=== PATIENT | male | born 2005 | race Caucasian/White ===

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

== ENCOUNTER 2023-03-10 22:59 | Emergency (ER) | payer OTHER ==
[2023-03-10] MEDS ORDERED: METHYLPREDNISOLONE 125 MG INJ ONE (23:15)
[2023-03-10] MEDS ORDERED: FAMOTIDINE 20 MG/2 ML VIAL IV ONE (23:15)
[2023-03-10] MEDS ORDERED: NA CHLORIDE 0.9% 1,000 ML ONE (23:15)
--- OUTSIDE RECORDS SUMMARY | 2023-03-10 23:27 | XMS REPORT | Continuity of Care Document ---
:2005 Author Organization [facility] t Address [address] [facility] [address] [place] [address] Care Team Providers Name Role Phone Rodriguez RAFIQ, Miladys Primary Care Physician [phone] EDDO, GENERIC FOR EDM Attending Clinician Unavailable ESTRADA SHAH Attending Clinician Unavailable HELDER HENRY Attending Clinician Unavailable Helder Henry PA-C Attending Clinician Unknown, Attending Attending Clinician Unavailable Lab, Ang - Db Attending Clinician Unavailable Dorothea Collier MD Attending Clinician DOROTHEA COLLIER Attending Clinician Unavailable Doctor Unassigned, [place] Attending Clinician Unavailable MALICK MONTEIRO Attending Clinician Unavailable Malick Mendez Attending Clinician SAMI GALLO Attending Clinician Unavailable Shaun Driver DO Attending Clinician Sami Gallo MD Attending Clinician RAGHU HAM Attending Clinician Unavailable Raghu Ham APN Attending Clinician IBIKUNLE, FOLUSHO F Attending Clinician Unavailable Ibikunle SAFETY INVESTIGATOR, Folusho F Attending Clinician VONDA HAYNES Attending Clinician Unavailable Vonda Haynes NP Attending Clinician Mark SANDERS, Suzie Augustin Attending Clinician Unavailable STEVEN MARIEE R Attending Clinician Unavailable Steven Staples R Attending Clinician CARLOS OVIEDO Attending Clinician Unavailab AMANDA Lockwood Attending Clinician Unavailable Nurse, [facility] Mp1 Assessment Attending Clinician Unavailable UNKNOWN, ATTENDING Attending Clinician Unavailable Jamaal CONROY, Ming Newby Attending Clinician Sergio LOTT, Yana Attending Clinician YANA HILL Attending Clinician Unavailable Shannon Villanueva PA-C, Vincent M Attending Clinician [phone] Carlos Oviedo MD Attending Clinician [phone] Elissa Navarrete MD Attending Clinician ELISSA NAVARRETE Attending Clinician Unavailable Jay Corona DO Attending Clinician Akhil Carpio Attending Clinician She Harden Attending Clinician CLINT CHRISTIANSON Attending Clinician Unavailable Esrtada Forte Attending Clinician Maryjane Bartholomew Attending Clinician Only, Adc Kwame Bill Attending Clinician Unavailable Moody Gr DO Attending Clinician Provider, [facility] Attending Clinician Unavailable Divina Vasquez Attending Clinician Pob, Adc Lab Main Attending Clinician Unavailable SHE BRAVO Attending Clinician Unavailable Pob1, Acute Care [facility] Attending Clinician Unavailable Bindu ELENA, Ladi Myers Attending Clinician [phone] DOMO CHRISTIANSON Attending Clinician Unavailable Domo German Attending Clinician Phuc SAFETY INVESTIGATOR, Tracee Nunez Attending Clinician Kameron SAFETY INVESTIGATOR, Michelle Attending Clinician Hudson Wray MD Attending Clinician Cruz Crow Admitting Clinician Unavailable RAGHU HAM Admitting Clinician Unavailable DOMO CHRISTIANSON Admitting Clinician Unavailable ELISSA NAVARRETE Admitting Clinician Unavailable Payers Payer Name Policy Type Policy Number Effective Date Expiration Date S sherif [facility] [id number] CHOICE - CHIP/STAR (MEDICAID) [facility] [id number] 2017 00:00:00 Problems Condition Condition Condition Status Onset Resolution Last Treating Co mments Source Name Details Category Date Date Treatment Clinician Date Chronic Chronic Disease Active Overview: Univ ers rhinitis rhinitis 03-18 Formattin ity of 00:00: g of this note Medical might be Branch different from the original. Update 03/15/2021 - compliance nurse recommend ed Astelin nasal spray PRN Mild [...] ity o f 00:00: g of this [place] note Medical might be Branch different from the original. Update 03/15/2021 allergy specialis t refilled EPI pen and recommend s testing to determine his benefits of desensiti zing treatment . 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 Costochond Costochond Disease Active Last U meagan vidal, 5 Assessmen ity of acute acute 00:00: t & Plan: [address] Medical g of this Branch note might be different from the original. I suspect this is secondary to his persisten t cough. Address this issue today and will monitor. Recommend ed as needed use of ibuprofen or acetamino phen for relief of this chest pain. Other Other Disease Active Last [facility] atopic atopic 11-28 Assessmen ity of dermatitis dermatitis 00:00: t & Plan: [address] Medical g of this Branch note [...] cleansing the hands. Reduce use of hand german tutor when practical . Notify if rash does not improve with the use of topical corticost eroid over the next week. Anxiety Anxiety Disease Active Univers 9-10 ity of 00:00: [place] [id number] Medical Branch PTSD PTSD Disease Active Univers (post-trau (post-trau 9-10 it y of noemi franklin 00:00: [place] stress stress 00 Medical disorder) disorder) Bran ch Recurrent Recurrent Disease Active Overview: Univers chest pain chest pain 4-22 Patient i ty of 00:00: saw Dr. Francisco Guerra with Medical [facility] - pulmonolo gy on 02/25/2020 - [...] laterality Aggressive Aggressive Disease Active 2019-0 U willisers behavior behavior 4-22 ity of 00:00: Medical Branch Opposition Opposition Disease Active 2019-0 U nivers al al 4 ity of behavior behavior 00:00: Medical Branch Opposition Opposition Disease Active 2019-0 U nivers al al 02-17 ity of behavior behavior 00:00: Medical Branch Mood Mood Disease Active Univers disturbanc disturbanc 01-04 it y of e e 00:00: [place] [facility] Academic/e Academic/e Disease Active U jacinto ducational ducational 01-04 it y of problem problem 00:00: Medical Branch Attention Attention Disease Active Overview: Univers deficit deficit 1-02 Formattin ity o f hyperactiv hyperactiv 00:00: g of this [place] ity ity 00 note Medical disorder disorder might be Bran ch (ADHD) (ADHD) different from the original. ICD10 Diagnosis Term Supervisor Contact [employer]ens [employer] Asthma Asthma Disease Active Overview: Univer s 2-16 Intermitt ity of 00:00: [id number] Diagnosis Medical Term Branch Supervisor Contact [employer] Allergies, Adverse Reactions, Alerts Allergy Allergy Status Severity Reaction(s) Onset Inactive Treating Comm ents Source Name Type Date Date Clinician Codeine Propensi Active ty to 09 adverse 00:00: reaction 00 to drug codeine DA Active [facility] 2- Clear 00:00: [place] 00 [facility] codeine DA Active MO "SEEING [facility] THINGS" 12-25 Clear 00:00: [place] 00 [facility] BEE DRUG Active Swelling 2013-10 Univers STING / INGREDI 2-15 ity of VENOM 00:00: [place] [facility] Bee Propensi Active Swelling 2013-10 [...] Date Stop Date Quantity Comments Source History of Cigarette Smoker Universi ty of tobacco use [place] [facility] History [facility] o f Alcohol Frequency [facility] edical Branch History [facility] o f Alcohol Std [place] Medical Drinks Branch History [facility] o f Alcohol Binge [place] Medic al Branch Alcohol intake 2023-02-20 2023-02-20 Ex-drinker University of 00:00:00 00:00:00 (finding) [facility] Exposure to 2023-02-09 2023-02-19 Yes University of SARS-CoV-2 00:00:00 09:23:00 [facility] (event) Branch Tobacco use and 2023-01-23 2023-01-23 Smokeless tobacco Un iversity of exposure 00:00:00 00:00:00 non-user [facility] Tobacco Comment 2023-01-23 2023-01-23 Vaping, beginning Un iversity of 00:00:00 00:00:00 ~2018 [facility] Alcohol Comment 2019-07-09 2019-07-09 "I tried alcohol Uni versity of 00:00:00 00:00:00 once" [facility] Sex Assigned At [birth year] Universit y of 00:00:00 00:00:00 [facility] Smoking Status Start Date Stop Date Source Heavy tobacco smoker 2023-01-23 00:00:00 Univers ity [facility] Light tobacco smoker 2020-03-01 00:00:00 Univers ity [facility] Never smoker [facility] Medications Ordered Filled Start Stop Current Ordering Indication Dosage Frequency Signature Comments Components Source Medication Medication Date Date Medication? Clinician (SIG) Name Name predniSONE 2022- No [id number] 40mg Take 2 Univers 20 mg 1-20 - tablets by ity of tablet 00:00: 05:59 mouth in [place] 00 :00 the Medical morning Branch for 5 days. Dose 2021- No Unknown 2-16 00:00: 00 Dose 2021-1 No Unknown 2-16 00:00: 00 Dose 2021- No Unknown 2-16 00:00: 00 INHALE 2 2021-10 No PUFFS BY 2-16 MOUTH EVERY 00:00: 4 HOURS 00 Dose 2021-1 No Unknown 2-16 00:00: 00 Dose 2021-1 No Unknown 2-16 00:00: 00 Dose 2021-1 No Unknown 2-16 00:00: 00 Dose 2021-0 No Unknown 7-14 00:00: 00 Dose 2021-0 No Unknown 7-14 00:00: 00 Ativan 1 mg No 1mg tablet 04-11 00:00: 00 Dose 2021-0 No Unknown 6-14 00:00: 00 Dose 2021-0 No Unknown 6-14 00:00: 00 Dose 2021-0 No Unknown 6-14 00:00: 00 hydrOXYzine 2021- No 25mg 25 mg, Uni vers (ATARAX) 04-03 Oral, ity of tablet 25 22:00: 21:02 ONCE, 1 [place] mg 00 :00 dose, On Medical 04/03/22 Branch at 1700, DRAKE iopamidol 2021- No [id number] 70mL 70 mL, Univers (ISOVUE 04-03 Intravenou ity o f 370-500 mL) 21:18: 21:19 s, ONCE, 1 [place] injection 00 :00 dose, On Medica l 70 mL [facility] 04/03/22 Branch at 1630, Routine hydrOXYzine Yes [id number] 25mg Take 1 Univers 25 mg 6-06 tablet by ity of tablet 00:00: mouth [place] 00 every 8 Medical (eight) Branch hours as needed for Anxiety. hydrOXYzine 2021-0 Yes [id number] 25mg Take 1 Univers 25 mg 6-06 tablet by ity of tablet 00:00: mouth [place] 00 every 8 Medical (eight) Branch hours as needed for Anxiety. hydrOXYzine 2021-0 Yes [id number] 25mg Take 1 Univers 25 mg 6-06 tablet by ity of tablet 00:00: mouth [place] 00 every 8 Medical (eight) Branch hours as needed for Anxiety. hydrOXYzine 2022-0 Yes [id number] 25mg Take 1 Univers 25 mg 6-06 tablet by ity of tablet 00:00: mouth [place] 00 every 8 Medical (eight) Branch hours as needed for Anxiety. hydrOXYzine 2022-0 Yes [id number] 25mg Take 1 Univers 25 mg 6-06 tablet by ity of tablet 00:00: mouth [place] 00 every 8 Medical (eight) Branch hours as needed for Anxiety. hydrOXYzine 2022-0 Yes [id number] 25mg Take 1 Univers 25 mg 6-06 tablet by ity of tablet 00:00: mouth [place] 00 every 8 Medical (eight) Branch hours as needed for Anxiety. hydrOXYzine 2022-0 Yes [id number] 25mg Take 1 Univers 25 mg 6-06 tablet by ity of tablet 00:00: mouth [place] 00 every 8 Medical (eight) Branch hours as needed for Anxiety. hydrOXYzine 2022-0 Yes [id number] 25mg Take 1 Univers 25 mg 6-06 tablet by ity of tablet 00:00: mouth [place] 00 every 8 Medical (eight) Branch hours as needed for Anxiety. hydrOXYzine 2022-0 Yes [id number] 25mg Take 1 Univers 25 mg 6-06 tablet by ity of tablet 00:00: mouth [place] 00 every 8 Medical (eight) Branch hours as needed for Anxiety. hydrOXYzine 2022-0 Yes [id number] 25mg Take 1 Univers 25 mg 6-06 tablet by ity of tablet 00:00: mouth [place] 00 every 8 Medical (eight) Branch hours as needed for Anxiety. hydrOXYzine 2022-0 Yes [id number] 25mg Take 1 Univers 25 mg 6-06 tablet by ity of tablet 00:00: mouth [place] 00 every 8 Medical (eight) Branch hours as needed for Anxiety. ibuprofen 2022-0 Yes [id number] 600mg Take 1 Univers 600 mg 5-09 tablet by ity of tablet 00:00: mouth [place] 00 every 6 Medical (six) Branch hours as needed for Pain (scale 4-6). ibuprofen 2022-0 Yes [id number] 600mg Take 1 Univers 600 mg 5-09 tablet by ity of tablet 00:00: mouth [place] 00 every 6 Medical (six) Branch hours as needed for Pain (scale 4-6). ibuprofen 2022-0 Yes [id number] 600mg Take 1 Univers 600 mg 5-09 tablet by ity of tablet 00:00: mouth [place] 00 every 6 Medical (six) Branch hours as needed for Pain (scale 4-6). ibuprofen 2022-0 Yes [id number] 600mg Take 1 Univers 600 mg 5-09 tablet by ity of tablet 00:00: mouth [place] 00 every 6 Medical (six) Branch hours as needed for Pain (scale 4-6). ibuprofen 2022-0 Yes [id number] 600mg Take 1 Univers 600 mg 5-09 tablet by ity of tablet 00:00: mouth [place] 00 every 6 Medical (six) Branch hours as needed for Pain (scale 4-6). ibuprofen 2022-0 Yes [id number] 600mg Take 1 Univers 600 mg 5-09 tablet by ity of tablet 00:00: mouth [place] 00 every 6 Medical (six) Branch hours as needed for Pain (scale 4-6). ibuprofen 2022-0 Yes [id number] 600mg Take 1 Univers 600 mg 5-09 tablet by ity of tablet 00:00: mouth [place] 00 every 6 Medical (six) Branch hours as needed for Pain (scale 4-6). ibuprofen 2022-0 Yes [id number] 600mg Take 1 Univers 600 mg 5-09 tablet by ity of tablet 00:00: mouth [place] 00 every 6 Medical (six) Branch hours as needed for Pain (scale 4-6). ibuprofen 2022-0 Yes [id number] 600mg Take 1 Univers 600 mg 5-09 tablet by ity of tablet 00:00: mouth [place] 00 every 6 Medical (six) Branch hours as needed for Pain (scale 4-6). ibuprofen 2022-0 Yes [id number] 600mg Take 1 Univers 600 mg 5-09 tablet by ity of tablet 00:00: mouth [place] 00 every 6 Medical (six) Branch hours as needed for Pain (scale 4-6). ibuprofen 2022-0 Yes [id number] 600mg Take 1 Univers 600 mg 5-09 tablet by ity of tablet 00:00: mouth [place] 00 every 6 Medical (six) Branch hours as needed for Pain (scale 4-6). ibuprofen 2022-0 Yes [id number] 600mg Take 1 Univers 600 mg 5-09 tablet by ity of tablet 00:00: mouth [place] 00 every 6 Medical (six) Branch hours as needed for Pain (scale 4-6). methocarbam 2021- No [id number] 750mg Take 1 Univers oL 750 mg 03-06 tablet by ity of tablet 00:00: 04:59 mouth 4 [place] 00 :00 (four) Medical times Branch daily for 2 days. Dose 2021-0 No Unknown 3-10 00:00: 00 Dose 2021-0 No Unknown 3-10 00:00: 00 Dose 2021-0 No Unknown 3-10 00:00: 00 Dose 2021-0 No Unknown 3-10 00:00: 00 Dose 2021-0 No Unknown 3-09 00:00: 00 Dose 2021-0 No Unknown 3-09 00:00: 00 Dose 2021-0 No Unknown 3-09 00:00: 00 Dose 2021-0 No Unknown 3-09 00:00: 00 Dose 2021-0 No Unknown 3-09 00:00: 00 Dose 2021-0 No Unknown 3-09 00:00: 00 famotidine 2021- No 20mg 20 mg, Univ ers (PEPCID AC) 11-10 Oral, ity of tablet 20 19:30: 21:07 ONCE, 1 [place] mg 00 :00 dose, On Medical [place] Branch 11/10/21 at 1330, DRAKE ondansetron 2021- No 4mg 4 mg, Univ ers (ZOFRAN-ODT 11-10 Oral, ity of ) 19:30: 21:07 ONCE, 1 [place] disintegrat 00 :00 dose, On Medi chen ing tablet [facility] Branch 4 mg 11/10/21 at 1330, Routine ondansetron Yes [id number] 4mg Take 1 Univers (ZOFRAN 1-13 tablet by ity of ODT) 4 mg 00:00: mouth [place] disintegrat 00 every 8 Medic al ing tablet (eight) Branch hours as needed for Nausea and Vomiting (N/V). ondansetron 2021-0 Yes [id number] 4mg Take 1 Univers (ZOFRAN 1-13 tablet by ity of ODT) 4 mg 00:00: mouth [place] disintegrat 00 every 8 Medic al ing tablet (eight) Branch hours as needed for Nausea and Vomiting (N/V). ondansetron 2022-0 Yes [id number] 4mg Take 1 Univers (ZOFRAN 1-13 tablet by ity of ODT) 4 mg 00:00: mouth [place] disintegrat 00 every 8 Medic al ing tablet (eight) Branch hours as needed for Nausea and Vomiting (N/V). ondansetron 2022-0 Yes [id number] 4mg Take 1 Univers (ZOFRAN 1-13 tablet by ity of ODT) 4 mg 00:00: mouth [place] disintegrat 00 every 8 Medic al ing tablet (eight) Branch hours as needed for Nausea and Vomiting (N/V). ondansetron 2022-0 Yes [id number] 4mg Take 1 Univers (ZOFRAN 1-13 tablet by ity of ODT) 4 mg 00:00: mouth [place] disintegrat 00 every 8 Medic al ing tablet (eight) Branch hours as needed for Nausea and Vomiting (N/V). ondansetron 2022-0 Yes [id number] 4mg Take 1 Univers (ZOFRAN 1-13 tablet by ity of ODT) 4 mg 00:00: mouth [place] disintegrat 00 every 8 Medic al ing tablet (eight) Branch hours as needed for Nausea and Vomiting (N/V). ondansetron 2022-0 Yes [id number] 4mg Take 1 Univers (ZOFRAN 1-13 tablet by ity of ODT) 4 mg 00:00: mouth [place] disintegrat 00 every 8 Medic al ing tablet (eight) Branch hours as needed for Nausea and Vomiting (N/V). ondansetron 2022-0 Yes [id number] 4mg Take 1 Univers (ZOFRAN 1-13 tablet by ity of ODT) 4 mg 00:00: mouth [place] disintegrat 00 every 8 Medic al ing tablet (eight) Branch hours as needed for Nausea and Vomiting (N/V). ondansetron 2022-0 Yes [id number] 4mg Take 1 Univers (ZOFRAN 1-13 tablet by ity of ODT) 4 mg 00:00: mouth [place] disintegrat 00 every 8 Medic al ing tablet (eight) Branch hours as needed for Nausea and Vomiting (N/V). ondansetron 2022-0 Yes [id number] 4mg Take 1 Univers (ZOFRAN 1-13 tablet by ity of ODT) 4 mg 00:00: mouth [place] disintegrat 00 every 8 Medic al ing tablet (eight) Branch hours as needed for Nausea and Vomiting (N/V). ondansetron Yes [id number] 4mg Take 1 Univers (ZOFRAN 1-13 tablet by ity of ODT) 4 mg 00:00: mouth [place] disintegrat 00 every 8 Medic al ing tablet (eight) Branch hours as needed for Nausea and Vomiting (N/V). ondansetron Yes [id number] 4mg Take 1 Univers (ZOFRAN 1-13 tablet by ity of ODT) 4 mg 00:00: mouth [place] disintegrat 00 every 8 Medic al ing tablet (eight) Branch hours as needed for Nausea and Vomiting (N/V). ondansetron Yes [id number] 4mg Take 1 Univers (ZOFRAN 1-13 tablet by ity of ODT) 4 mg 00:00: mouth [place] disintegrat 00 every 8 Medic al ing tablet (eight) Branch hours as needed for Nausea and Vomiting (N/V). famotidine 2021- No [id number] 20mg Take 1 Univers 20 mg 1-13 02-04 tablet by ity of tablet 00:00: 05:59 mouth at [place] 00 :00 bedtime Medical for 21 Branch days. penicillin 2020- No [id number] 1.210 U nivers g 05-25 ity of benzathine 01:30: 00:49 [place] (BICILLIN 00 :00 Medical L-A) Branch injection 1.2 Million Units penicillin 2020- No [id number] 1.210 1.2 U nivers g 05-25 Million ity of benzathine 01:30: 00:49 Units, [place] (BICILLIN 00 :00 Intramuscu Medi chen L-A) lar, ONCE, Branch injection 1 dose, 1.2 Million Tue Units 05/24/21 at 2030, DRAKE
Re ason for Anti-Infec tive: Empiric Therapy for Suspected Infection< br>Empiric Therapy Site: Urine
D uration of therapy: 7 days ondansetron Yes [id number] 4mg Take 1 Univers 4 mg 7-26 tablet by ity of disintegrat 00:00: mouth [place] ing tablet 00 every 8 Medica l (eight) Branch hours as needed for Nausea and Vomiting (N/V). chlorhexidi 2020-0 Yes [id number] Apply to Univers ne 4 % 7-26 area(s) ity of external 00:00: once daily [place] as liquid 00 as needed Medical for Wound Branch care. mupirocin 2 2020-0 Yes [id number] Apply to Univers % ointment 7-26 area(s) 3 ity of 00:00: (three) [place] 00 times Medical daily. Branch ondansetron 2020-0 Yes [id number] 4mg Take 1 Univers 4 mg 7-26 tablet by ity of disintegrat 00:00: mouth [place] ing tablet 00 every 8 Medica l (eight) Branch hours as needed for Nausea and Vomiting (N/V). chlorhexidi 2020-0 Yes [id number] Apply to Univers ne 4 % 7-26 area(s) ity of external 00:00: once daily [place] as liquid 00 as needed Medical for Wound Branch care. mupirocin 2 2020-0 Yes [id number] Apply to Univers % ointment 7-26 area(s) 3 ity of 00:00: (three) [place] 00 times Medical daily. Branch ondansetron 2020-0 Yes [id number] 4mg Take 1 Univers 4 mg 7-26 tablet by ity of disintegrat 00:00: mouth [place] ing tablet 00 every 8 Medica l (eight) Branch hours as needed for Nausea and Vomiting (N/V). chlorhexidi 2020-0 Yes [id number] Apply to Univers ne 4 % 7-26 area(s) ity of external 00:00: once daily [place] as liquid 00 as needed Medical for Wound Branch care. mupirocin 2 2020-0 Yes [id number] Apply to Univers % ointment 7-26 area(s) 3 ity of 00:00: (three) [place] 00 times Medical daily. Branch ondansetron 2020-0 Yes [id number] 4mg Take 1 Univers 4 mg 7-26 tablet by ity of disintegrat 00:00: mouth [place] ing tablet 00 every 8 Medica l (eight) Branch hours as needed for Nausea and Vomiting (N/V). chlorhexidi 1-0 Yes [id number] Apply to Univers ne 4 % 7-26 area(s) ity of external 00:00: once daily [place] as liquid 00 as needed Medical for Wound Branch care. mupirocin 2 2020-0 Yes [id number] Apply to Univers % ointment 7-26 area(s) 3 ity of 00:00: (three) [place] 00 times Medical daily. Branch ondansetron 1-0 Yes [id number] 4mg Take 1 Univers 4 mg 7-26 tablet by ity of disintegrat 00:00: mouth [place] ing tablet 00 every 8 Medica l (eight) Branch hours as needed for Nausea and Vomiting (N/V). chlorhexidi 1-0 Yes [id number] Apply to Univers ne 4 % 7-26 area(s) ity of external 00:00: once daily [place] as liquid 00 as needed Medical for Wound Branch care. mupirocin 2 2020-0 Yes [id number] Apply to Univers % ointment 7-26 area(s) 3 ity of 00:00: (three) [place] 00 times Medical daily. Branch ondansetron 2020-0 Yes [id number] 4mg Take 1 Univers 4 mg 7-26 tablet by ity of disintegrat 00:00: mouth [place] ing tablet 00 every 8 Medica l (eight) Branch hours as needed for Nausea and Vomiting (N/V). chlorhexidi 2020-0 Yes [id number] Apply to Univers ne 4 % 7-26 area(s) ity of external 00:00: once daily [place] as liquid 00 as needed Medical for Wound Branch care. mupirocin 2 2020-0 Yes [id number] Apply to Univers % ointment 7-26 area(s) 3 ity of 00:00: (three) [place] 00 times Medical daily. Branch ondansetron 1-0 Yes [id number] 4mg Take 1 Univers 4 mg 7-26 tablet by ity of disintegrat 00:00: mouth [place] ing tablet 00 every 8 Medica l (eight) Branch hours as needed for Nausea and Vomiting (N/V). chlorhexidi 1-0 Yes [id number] Apply to Univers ne 4 % 7-26 area(s) ity of external 00:00: once daily [place] as liquid 00 as needed Medical for Wound Branch care. mupirocin 2 2020-0 Yes [id number] Apply to Univers % ointment 7-26 area(s) 3 ity of 00:00: (three) [place] 00 times Medical daily. Branch ondansetron 1-0 Yes [id number] 4mg Take 1 Univers 4 mg 7-26 tablet by ity of disintegrat 00:00: mouth [place] ing tablet 00 every 8 Medica l (eight) Branch hours as needed for Nausea and Vomiting (N/V). chlorhexidi 1-0 Yes [id number] Apply to Univers ne 4 % 7-26 area(s) ity of external 00:00: once daily [place] as liquid 00 as needed Medical for Wound Branch care. mupirocin 2 2020-0 Yes [id number] Apply to Univers % ointment 7-26 area(s) 3 ity of 00:00: (three) [place] 00 times Medical daily. Branch ondansetron 1-0 Yes [id number] 4mg Take 1 Univers 4 mg 7-26 tablet by ity of disintegrat 00:00: mouth [place] ing tablet 00 every 8 Medica l (eight) Branch hours as needed for Nausea and Vomiting (N/V). chlorhexidi 2020-0 Yes [id number] Apply to Univers ne 4 % 7-26 area(s) ity of external 00:00: once daily [place] as liquid 00 as needed Medical for Wound Branch care. mupirocin 2 2020-0 Yes [id number] Apply to Univers % ointment 7-26 area(s) 3 ity of 00:00: (three) [place] 00 times Medical daily. Branch ondansetron 2020-0 Yes [id number] 4mg Take 1 Univers 4 mg 7-26 tablet by ity of disintegrat 00:00: mouth [place] ing tablet 00 every 8 Medica l (eight) Branch hours as needed for Nausea and Vomiting (N/V). chlorhexidi 1-0 Yes [id number] Apply to Univers ne 4 % 7-26 area(s) ity of external 00:00: once daily [place] as liquid 00 as needed Medical for Wound Branch care. mupirocin 2 2020-0 Yes [id number] Apply to Univers % ointment 7-26 area(s) 3 ity of 00:00: (three) [place] 00 times Medical daily. Branch ondansetron 2020-0 Yes [id number] 4mg Take 1 Univers 4 mg 7-26 tablet by ity of disintegrat 00:00: mouth [place] ing tablet 00 every 8 Medica l (eight) Branch hours as needed for Nausea and Vomiting (N/V). chlorhexidi 2020-0 Yes [id number] Apply to Univers ne 4 % 7-26 area(s) ity of external 00:00: once daily [place] as liquid 00 as needed Medical for Wound Branch care. mupirocin 2 2020-0 Yes [id number] Apply to Univers % ointment 7-26 area(s) 3 ity of 00:00: (three) [place] 00 times Medical daily. Branch ondansetron 2020-0 Yes [id number] 4mg Take 1 Univers 4 mg 7-26 tablet by ity of disintegrat 00:00: mouth [place] ing tablet 00 every 8 Medica l (eight) Branch hours as needed for Nausea and Vomiting (N/V). chlorhexidi 2020-0 Yes [id number] Apply to Univers ne 4 % 7-26 area(s) ity of external 00:00: once daily [place] as liquid 00 as needed Medical for Wound Branch care. mupirocin 2 2020-0 Yes [id number] Apply to Univers % ointment 7-26 area(s) 3 ity of 00:00: (three) [place] 00 times Medical daily. Branch ondansetron 2020-0 Yes [id number] 4mg Take 1 [facility] 4 mg 7-26 tablet by ity of disintegrat 00:00: mouth [place] ing tablet 00 every 8 Medica l (eight) Branch hours as needed for Nausea and Vomiting (N/V). chlorhexidi 2020-0 Yes [id number] Apply to [facility] ne 4 % 7-26 area(s) ity of external 00:00: once daily [place] as liquid 00 as needed Medical for Wound Branch care. mupirocin 2 2020-0 Yes [id number] Apply to [facility] % ointment 7-26 area(s) 3 ity of 00:00: (three) [place] 00 times Medical daily. Branch ondansetron 2020-0 Yes [id number] 4mg Take 1 [facility] 4 mg 7-26 tablet by ity of disintegrat 00:00: mouth [place] ing tablet 00 every 8 Medica l (eight) Branch hours as needed for Nausea and Vomiting (N/V). chlorhexidi 2020-0 Yes [id number] Apply to [facility] ne 4 % 7-26 area(s) ity of external 00:00: once daily [place] as liquid 00 as needed Medical for Wound Branch care. mupirocin 2 2020-0 Yes [id number] Apply to [facility] % ointment 7-26 area(s) 3 ity of 00:00: (three) [place] 00 times Medical daily. Branch ondansetron 2020-0 Yes [id number] 4mg Take 1 [facility] 4 mg 7-26 tablet by ity of disintegrat 00:00: mouth [place] ing tablet 00 every 8 Medica l (eight) Branch hours as needed for Nausea and Vomiting (N/V). chlorhexidi 2020-0 Yes [id number] Apply to [facility] ne 4 % 7-26 area(s) ity of external 00:00: once daily [place] as liquid 00 as needed Medical for Wound Branch care. mupirocin 2 2020-0 Yes [id number] Apply to [facility] % ointment 7-26 area(s) 3 ity of 00:00: (three) [place] 00 times Medical daily. Branch ondansetron 2020-0 Yes [id number] 4mg Take 1 [facility] 4 mg 7-26 tablet by ity of disintegrat 00:00: mouth [place] ing tablet 00 every 8 Medica l (eight) Branch hours as needed for Nausea and Vomiting (N/V). chlorhexidi 2020-0 Yes [id number] Apply to [facility] ne 4 % 7-26 area(s) ity of external 00:00: once daily [place] as liquid 00 as needed Medical for Wound Branch care. mupirocin 2 2020-0 Yes [id number] Apply to [facility] % ointment 7-26 area(s) 3 ity of 00:00: (three) [place] 00 times Medical daily. Branch ondansetron 2020-0 Yes [id number] 4mg Take 1 [facility] 4 mg 7-26 tablet by ity of disintegrat 00:00: mouth [place] ing tablet 00 every 8 Medica l (eight) Branch hours as needed for Nausea and Vomiting (N/V). chlorhexidi 2020-0 Yes [id number] Apply to [facility] ne 4 % 7-26 area(s) ity of external 00:00: once daily [place] as liquid 00 as needed Medical for Wound Branch care. mupirocin 2 2020-0 Yes [id number] Apply to [facility] % ointment 7-26 area(s) 3 ity of 00:00: (three) [place] 00 times Medical daily. Branch ondansetron 2020-0 Yes [id number] 4mg Take 1 [facility] 4 mg 7-26 tablet by ity of disintegrat 00:00: mouth [place] ing tablet 00 every 8 Medica l (eight) Branch hours as needed for Nausea and Vomiting (N/V). chlorhexidi 2020-0 Yes [id number] Apply to [facility] ne 4 % 7-26 area(s) ity of external 00:00: once daily [place] as liquid 00 as needed Medical for Wound Branch care. mupirocin 2 2020-0 Yes [id number] Apply to [facility] % ointment 7-26 area(s) 3 ity of 00:00: (three) [place] 00 times Medical daily. Branch ondansetron 2020-0 Yes [id number] 4mg Take 1 [facility] 4 mg 7-26 tablet by ity of disintegrat 00:00: mouth [place] ing tablet 00 every 8 Medica l (eight) Branch hours as needed for Nausea and Vomiting (N/V). chlorhexidi 2020-0 Yes [id number] Apply to [facility] ne 4 % 7-26 area(s) ity of external 00:00: once daily [place] as liquid 00 as needed Medical for Wound Branch care. mupirocin 2 2020-0 Yes [id number] Apply to [facility] % ointment 7-26 area(s) 3 ity of 00:00: (three) [place] 00 times Medical daily. Branch ondansetron 2020-0 Yes [id number] 4mg Take 1 [facility] 4 mg 7-26 tablet by ity of disintegrat 00:00: mouth [place] ing tablet 00 every 8 Medica l (eight) Branch hours as needed for Nausea and Vomiting (N/V). chlorhexidi 2020-0 Yes [id number] Apply to [facility] ne 4 % 7-26 area(s) ity of external 00:00: once daily [place] as liquid 00 as needed Medical for Wound Branch care. mupirocin 2 2020-0 Yes [id number] Apply to [facility] % ointment 7-26 area(s) 3 ity of 00:00: (three) [place] 00 times Medical daily. Branch ondansetron Yes [id number] 4mg Take 1 [facility] 4 mg 7- tablet by ity of disintegrat 00:00: mouth [place] ing tablet 00 every 8 Medica l (eight) Branch hours as needed for Nausea and Vomiting (N/V). chlorhexidi Yes [id number] Apply to [facility] ne 4 % 05-23 area(s) ity of external 00:00: once daily [place] as liquid 00 as needed Medical for Wound Branch care. mupirocin 2 Yes [id number] Apply to [facility] % ointment 7-26 area(s) 3 ity of 00:00: (three) [place] 00 times Medical daily. Branch Mometasone- Yes [id number] 2{puff} Inhale 2 [facility] Formoterol 5-18 Puffs 2 ity of (DULERA) 00:00: (two) [place] 200-5 00 times Medical mcg/actuati daily as Bran ch on inhaler needed (shortness of breath). azelastine Yes [id number] 1{spray Use 1 [facility] 137 mcg 5-18 } [place] in ity of (0.1 %) 00:00: each [place] nasal spray 00 nostril 2 Med ical (two) Branch times daily. Use in each nostril as directed EPINEPHrine Yes [id number] .3mg 0.3 mL by [facility] (EPIPEN) 5-18 Intramuscu ity o f 0.3 mg/0.3 00:00: lar route [place] mL 00 as needed Medical injection (anaphylax Bran ch is). Mometasone- Yes [id number] 2{puff} Inhale 2 [facility] Formoterol 5-18 Puffs 2 ity of (DULERA) 00:00: (two) [place] 200-5 00 times Medical mcg/actuati daily as Bran ch on inhaler needed (shortness of breath). azelastine Yes [id number] 1{spray Use 1 [facility] 137 mcg 5-18 } [place] in ity of (0.1 %) 00:00: each [place] nasal spray 00 nostril 2 Med ical (two) Branch times daily. Use in each nostril as directed EPINEPHrine Yes [id number] .3mg 0.3 mL by [facility] (EPIPEN) 5-18 Intramuscu ity o f 0.3 mg/0.3 00:00: lar route [place] mL 00 as needed Medical injection (anaphylax Bran ch is). Mometasone- Yes [id number] 2{puff} Inhale 2 [facility] Formoterol 5-18 Puffs 2 ity of (DULERA) 00:00: (two) [place] 200-5 00 times Medical mcg/actuati daily as Bran ch on inhaler needed (shortness of breath). azelastine Yes [id number] 1{spray Use 1 [facility] 137 mcg 5-18 } [place] in ity of (0.1 %) 00:00: each [place] nasal spray 00 nostril 2 Med ical (two) Branch times daily. Use in each nostril as directed EPINEPHrine Yes [id number] .3mg 0.3 mL by [facility] (EPIPEN) 5-18 Intramuscu ity o f 0.3 mg/0.3 00:00: lar route [place] mL 00 as needed Medical injection (anaphylax Bran ch is). Mometasone- Yes [id number] 2{puff} Inhale 2 [facility] Formoterol 5-18 Puffs 2 ity of (DULERA) 00:00: (two) [place] 200-5 00 times Medical mcg/actuati daily as Bran ch on inhaler needed (shortness of breath). azelastine Yes [id number] 1{spray Use 1 [facility] 137 mcg 5-18 } [place] in ity of (0.1 %) 00:00: each [place] nasal spray 00 nostril 2 Med ical (two) Branch times daily. Use in each nostril as directed EPINEPHrine 2020- Yes [id number] .3mg 0.3 mL by [facility] (EPIPEN) 5-18 Intramuscu ity o f 0.3 mg/0.3 00:00: lar route [place] mL 00 as needed Medical injection (anaphylax Bran ch is). Mometasone- Yes [id number] 2{puff} Inhale 2 [facility] Formoterol 5-18 Puffs 2 ity of (DULERA) 00:00: (two) [place] 200-5 00 times Medical mcg/actuati daily as Bran ch on inhaler needed (shortness of breath). azelastine Yes [id number] 1{spray Use 1 [facility] 137 mcg 5-18 } [place] in ity of (0.1 %) 00:00: each [place] nasal spray 00 nostril 2 Med ical (two) Branch times daily. Use in each nostril as directed EPINEPHrine Yes [id number] .3mg 0.3 mL by [facility] (EPIPEN) 5-18 Intramuscu ity o f 0.3 mg/0.3 00:00: lar route [place] mL 00 as needed Medical injection (anaphylax Bran ch is). Mometasone- Yes [id number] 2{puff} Inhale 2 [facility] Formoterol 5-18 Puffs 2 ity of (DULERA) 00:00: (two) [place] 200-5 00 times Medical mcg/actuati daily as Bran ch on inhaler needed (shortness of breath). azelastine Yes [id number] 1{spray Use 1 [facility] 137 mcg 5-18 } [place] in ity of (0.1 %) 00:00: each [place] nasal spray 00 nostril 2 Med ical (two) Branch times daily. Use in each nostril as directed EPINEPHrine Yes [id number] .3mg 0.3 mL by [facility] (EPIPEN) 5-18 Intramuscu ity o f 0.3 mg/0.3 00:00: lar route [place] mL 00 as needed Medical injection (anaphylax Bran ch is). Mometasone- Yes [id number] 2{puff} Inhale 2 [facility] Formoterol 5-18 Puffs 2 ity of (DULERA) 00:00: (two) [place] 200-5 00 times Medical mcg/actuati daily as Bran ch on inhaler needed (shortness of breath). azelastine Yes [id number] 1{spray Use 1 [facility] 137 mcg 5-18 } [place] in ity of (0.1 %) 00:00: each [place] nasal spray 00 nostril 2 Med ical (two) Branch times daily. Use in each nostril as directed EPINEPHrine Yes [id number] .3mg 0.3 mL by [facility] (EPIPEN) 5-18 Intramuscu ity o f 0.3 mg/0.3 00:00: lar route [place] mL 00 as needed Medical injection (anaphylax Bran ch is). Mometasone- Yes [id number] 2{puff} Inhale 2 [facility] Formoterol 5-18 Puffs 2 ity of (DULERA) 00:00: (two) [place] 200-5 00 times Medical mcg/actuati daily as Bran ch on inhaler needed (shortness of breath). azelastine Yes [id number] 1{spray Use 1 [facility] 137 mcg 5-18 } [place] in ity of (0.1 %) 00:00: each [place] nasal spray 00 nostril 2 Med ical (two) Branch times daily. Use in each nostril as directed EPINEPHrine Yes [id number] .3mg 0.3 mL by [facility] (EPIPEN) 5-18 Intramuscu ity o f 0.3 mg/0.3 00:00: lar route [place] mL 00 as needed Medical injection (anaphylax Bran ch is). Mometasone- Yes [id number] 2{puff} Inhale 2 [facility] Formoterol 5-18 Puffs 2 ity of (DULERA) 00:00: (two) [place] 200-5 00 times Medical mcg/actuati daily as Bran ch on inhaler needed (shortness of breath). azelastine Yes [id number] 1{spray Use 1 [facility] 137 mcg 5-18 } [place] in ity of (0.1 %) 00:00: each [place] nasal spray 00 nostril 2 Med ical (two) Branch times daily. Use in each nostril as directed EPINEPHrine Yes [id number] .[id number] 0.3 mL by [facility] (EPIPEN) 5-18 Intramuscu ity o f 0.3 mg/0.3 00:00: lar route [place] mL 00 as needed Medical injection (anaphylax Bran ch is). Mometasone- Yes [id number] 2{puff} Inhale 2 [facility] Formoterol 5-18 Puffs 2 ity of (DULERA) 00:00: (two) [place] 200-5 00 times Medical mcg/actuati daily as Bran ch on inhaler needed (shortness of breath). azelastine Yes [id number] 1{spray Use 1 [facility] 137 mcg 5-18 } [place] in ity of (0.1 %) 00:00: each [place] nasal spray 00 nostril 2 Med ical (two) Branch times daily. Use in each nostril as directed EPINEPHrine 2020- Yes [id number] .3mg 0.3 mL by [facility] (EPIPEN) 5-18 Intramuscu ity o f 0.3 mg/0.3 00:00: lar route [place] mL 00 as needed Medical injection (anaphylax Bran ch is). Mometasone- Yes [id number] 2{puff} Inhale 2 [facility] Formoterol 5-18 Puffs 2 ity of (DULERA) 00:00: (two) [place] 200-5 00 times Medical mcg/actuati daily as Bran ch on inhaler needed (shortness of breath). azelastine Yes [id number] 1{spray Use 1 [facility] 137 mcg 5-18 } [place] in ity of (0.1 %) 00:00: each [place] nasal spray 00 nostril 2 Med ical (two) Branch times daily. Use in each nostril as directed EPINEPHrine 2020- Yes [id number] .3mg 0.3 mL by [facility] (EPIPEN) 5-18 Intramuscu ity o f 0.3 mg/0.3 00:00: lar route [place] mL 00 as needed Medical injection (anaphylax Bran ch is). Mometasone- Yes [id number] 2{puff} Inhale 2 [facility] Formoterol 5-18 Puffs 2 ity of (DULERA) 00:00: (two) [place] 200-5 00 times Medical mcg/actuati daily as Bran ch on inhaler needed (shortness of breath). azelastine Yes [id number] 1{spray Use 1 [facility] 137 mcg 5-18 } [place] in ity of (0.1 %) 00:00: each [place] nasal spray 00 nostril 2 Med ical (two) Branch times daily. Use in each nostril as directed EPINEPHrine 2020- Yes [id number] .3mg 0.3 mL by [facility] (EPIPEN) 5-18 Intramuscu ity o f 0.3 mg/0.3 00:00: lar route [place] mL 00 as needed Medical injection (anaphylax Bran ch is). Mometasone- Yes [id number] 2{puff} Inhale 2 [facility] Formoterol 5-18 Puffs 2 ity of (DULERA) 00:00: (two) [place] 200-5 00 times Medical mcg/actuati daily as Bran ch on inhaler needed (shortness of breath). azelastine Yes [id number] 1{spray Use 1 [facility] 137 mcg 5-18 } [place] in ity of (0.1 %) 00:00: each [place] nasal spray 00 nostril 2 Med ical (two) Branch times daily. Use in each nostril as directed EPINEPHrine 2020- Yes [id number] .3mg 0.3 mL by [facility] (EPIPEN) 5-18 Intramuscu ity o f 0.3 mg/0.3 00:00: lar route [place] mL 00 as needed Medical injection (anaphylax Bran ch is). Mometasone- Yes [id number] 2{puff} Inhale 2 [facility] Formoterol 5-18 Puffs 2 ity of (DULERA) 00:00: (two) [place] 200-5 00 times Medical mcg/actuati daily as Bran ch on inhaler needed (shortness of breath). azelastine 2020- Yes [id number] 1{spray Use 1 [facility] 137 mcg 5-18 } [place] in ity of (0.1 %) 00:00: each [place] nasal spray 00 nostril 2 Med ical (two) Branch times daily. Use in each nostril as directed EPINEPHrine 2020-0 Yes [id number] .3mg 0.3 mL by [facility] (EPIPEN) 5-18 Intramuscu ity o f 0.3 mg/0.3 00:00: lar route [place] mL 00 as needed Medical injection (anaphylax Bran ch is). Mometasone- Yes [id number] 2{puff} Inhale 2 [facility] Formoterol 5-18 Puffs 2 ity of (DULERA) 00:00: (two) [place] 200-5 00 times Medical mcg/actuati daily as Bran ch on inhaler needed (shortness of breath). azelastine Yes [id number] 1{spray Use 1 [facility] 137 mcg 5-18 } [place] in ity of (0.1 %) 00:00: each [place] nasal spray 00 nostril 2 Med ical (two) Branch times daily. Use in each nostril as directed EPINEPHrine 2020- Yes [id number] .3mg 0.3 mL by [facility] (EPIPEN) 5-18 Intramuscu ity o f 0.3 mg/0.3 00:00: lar route [place] mL 00 as needed Medical injection (anaphylax Bran ch is). Mometasone- Yes [id number] 2{puff} Inhale 2 [facility] Formoterol 5-18 Puffs 2 ity of (DULERA) 00:00: (two) [place] 200-5 00 times Medical mcg/actuati daily as Bran ch on inhaler needed (shortness of breath). azelastine Yes [id number] 1{spray Use 1 [facility] 137 mcg 5-18 } [place] in ity of (0.1 %) 00:00: each [place] nasal spray 00 nostril 2 Med ical (two) Branch times daily. Use in each nostril as directed EPINEPHrine 2020-0 Yes [id number] .3mg 0.3 mL by [facility] (EPIPEN) 5-18 Intramuscu ity o f 0.3 mg/0.3 00:00: lar route [place] mL 00 as needed Medical injection (anaphylax Bran ch is). Mometasone- Yes [id number] 2{puff} Inhale 2 [facility] Formoterol 5-18 Puffs 2 ity of (DULERA) 00:00: (two) [place] 200-5 00 times Medical mcg/actuati daily as Bran ch on inhaler needed (shortness of breath). azelastine Yes [id number] 1{spray Use 1 [facility] 137 mcg 5-18 } [place] in ity of (0.1 %) 00:00: each [place] nasal spray 00 nostril 2 Med ical (two) Branch times daily. Use in each nostril as directed EPINEPHrine Yes [id number] .3mg 0.3 mL by [facility] (EPIPEN) 5-18 Intramuscu ity o f 0.3 mg/0.3 00:00: lar route [place] mL 00 as needed Medical injection (anaphylax Bran ch is). Mometasone- Yes [id number] 2{puff} Inhale 2 [facility] Formoterol 5-18 Puffs 2 ity of (DULERA) 00:00: (two) [place] 200-5 00 times Medical mcg/actuati daily as Bran ch on inhaler needed (shortness of breath). azelastine Yes [id number] 1{spray Use 1 [facility] 137 mcg 5-18 } [place] in ity of (0.1 %) 00:00: each [place] nasal spray 00 nostril 2 Med ical (two) Branch times daily. Use in each nostril as directed EPINEPHrine Yes [id number] .3mg 0.3 mL by [facility] (EPIPEN) 5-18 Intramuscu ity o f 0.3 mg/0.3 00:00: lar route [place] mL 00 as needed Medical injection (anaphylax Bran ch is). Mometasone- Yes [id number] 2{puff} Inhale 2 [facility] Formoterol 5-18 Puffs 2 ity of (DULERA) 00:00: (two) [place] 200-5 00 times Medical mcg/actuati daily as Bran ch on inhaler needed (shortness of breath). azelastine Yes [id number] 1{spray Use 1 [facility] 137 mcg 5-18 } [place] in ity of (0.1 %) 00:00: each [place] nasal spray 00 nostril 2 Med ical (two) Branch times daily. Use in each nostril as directed EPINEPHrine Yes [id number] .3mg 0.3 mL by [facility] (EPIPEN) 5-18 Intramuscu ity o f 0.3 mg/0.3 00:00: lar route [place] mL 00 as needed Medical injection (anaphylax Bran ch is). Mometasone- Yes [id number] 2{puff} Inhale 2 [facility] Formoterol 5-18 Puffs 2 ity of (DULERA) 00:00: (two) [place] 200-5 00 times Medical mcg/actuati daily as Bran ch on inhaler needed (shortness of breath). azelastine Yes [id number] 1{spray Use 1 [facility] 137 mcg 5-18 } [place] in ity of (0.1 %) 00:00: each [place] nasal spray 00 nostril 2 Med ical (two) Branch times daily. Use in each nostril as directed EPINEPHrine Yes [id number] .3mg 0.3 mL by [facility] (EPIPEN) 5-18 Intramuscu ity o f 0.3 mg/0.3 00:00: lar route [place] mL 00 as needed Medical injection (anaphylax Bran ch is). Mometasone- Yes [id number] 2{puff} Inhale 2 [facility] Formoterol 5-18 Puffs 2 ity of (DULERA) 00:00: (two) [place] 200-5 00 times Medical mcg/actuati daily as Bran ch on inhaler needed (shortness of breath). azelastine Yes [id number] 1{spray Use 1 [facility] 137 mcg 5-18 } [place] in ity of (0.1 %) 00:00: each [place] nasal spray 00 nostril 2 Med ical (two) Branch times daily. Use in each nostril as directed EPINEPHrine 2020- Yes [id number] .3mg 0.3 mL by [facility] (EPIPEN) 5-18 Intramuscu ity o f 0.3 mg/0.3 00:00: lar route [place] mL 00 as needed Medical injection (anaphylax Bran ch is). Mometasone- Yes [id number] 2{puff} Inhale 2 [facility] Formoterol 5-18 Puffs 2 ity of (DULERA) 00:00: (two) [place] 200-5 00 times Medical mcg/actuati daily as Bran ch on inhaler needed (shortness of breath). azelastine Yes [id number] 1{spray Use 1 [facility] 137 mcg 5-18 } [place] in ity of (0.1 %) 00:00: each [place] nasal spray 00 nostril 2 Med ical (two) Branch times daily. Use in each nostril as directed EPINEPHrine 2020- Yes [id number] .3mg 0.3 mL by [facility] (EPIPEN) 5-18 Intramuscu ity o f 0.3 mg/0.3 00:00: lar route [place] mL 00 as needed Medical injection (anaphylax Bran ch is). Mometasone- Yes [id number] 2{puff} Inhale 2 [facility] Formoterol 5-18 Puffs 2 ity of (DULERA) 00:00: (two) [place] 200-5 00 times Medical mcg/actuati daily as Bran ch on inhaler needed (shortness of breath). azelastine Yes [id number] 1{spray Use 1 [facility] 137 mcg 5-18 } [place] in ity of (0.1 %) 00:00: each [place] nasal spray 00 nostril 2 Med ical (two) Branch times daily. Use in each nostril as directed EPINEPHrine 2020- Yes [id number] .3mg 0.3 mL by [facility] (EPIPEN) 5-18 Intramuscu ity o f 0.3 mg/0.3 00:00: lar route [place] mL 00 as needed Medical injection (anaphylax Bran ch is). Mometasone- Yes [id number] 2{puff} Inhale 2 [facility] Formoterol 5-18 Puffs 2 ity of (DULERA) 00:00: (two) [place] 200-5 00 times Medical mcg/actuati daily as Bran ch on inhaler needed (shortness of breath). azelastine Yes [id number] 1{spray Use 1 [facility] 137 mcg 5-18 } [place] in ity of (0.1 %) 00:00: each [place] nasal spray 00 nostril 2 Med ical (two) Branch times daily. Use in each nostril as directed EPINEPHrine 2020- Yes [id number] .3mg 0.3 mL by [facility] (EPIPEN) 5-18 Intramuscu ity o f 0.3 mg/0.3 00:00: lar route [place] mL 00 as needed Medical injection (anaphylax Bran ch is). Mometasone- Yes [id number] 2{puff} Inhale 2 [facility] Formoterol 5-18 Puffs 2 ity of (DULERA) 00:00: (two) [place] 200-5 00 times Medical mcg/actuati daily as Bran ch on inhaler needed (shortness of breath). azelastine Yes [id number] 1{spray Use 1 [facility] 137 mcg 5-18 } [place] in ity of (0.1 %) 00:00: each [place] nasal spray 00 nostril 2 Med ical (two) Branch times daily. Use in each nostril as directed EPINEPHrine Yes [id number] .3mg 0.3 mL by [facility] (EPIPEN) 5-18 Intramuscu ity o f 0.3 mg/0.3 00:00: lar route [place] mL 00 as needed Medical injection (anaphylax Bran ch is). Mometasone- Yes [id number] 2{puff} Inhale 2 [facility] Formoterol 5-18 Puffs 2 ity of (DULERA) 00:00: (two) [place] 200-5 00 times Medical mcg/actuati daily as Bran ch on inhaler needed (shortness of breath). azelastine Yes [id number] 1{spray Use 1 [facility] 137 mcg 5-18 } [place] in ity of (0.1 %) 00:00: each [place] nasal spray 00 nostril 2 Med ical (two) Branch times daily. Use in each nostril as directed EPINEPHrine Yes [id number] .3mg 0.3 mL by [facility] (EPIPEN) 5-18 Intramuscu ity o f 0.3 mg/0.3 00:00: lar route [place] mL 00 as needed Medical injection (anaphylax Bran ch is). fluticasone Yes [id number] 2{puff} Inhale 2 [facility] propionate 4-22 6 Puffs ity of 220 00:00: every 12 [place] mcg/actuati 00 (twelve) Medi chen on inhaler hours. Branch fluticasone 2020-0 Yes [id number] 2{puff} Inhale 2 [facility] propionate 4-22 6 Puffs ity of 220 00:00: every 12 [place] mcg/actuati 00 (twelve) Medi chen on inhaler hours. Branch fluticasone 2020-0 Yes [id number] 2{puff} Inhale 2 [facility] propionate 4-22 6 Puffs ity of 220 00:00: every 12 [place] mcg/actuati 00 (twelve) Medi chen on inhaler hours. Branch fluticasone 2020-0 Yes [id number] 2{puff} Inhale 2 [facility] propionate 4-22 6 Puffs ity of 220 00:00: every 12 [place] mcg/actuati 00 (twelve) Medi chen on inhaler hours. Branch fluticasone 2020-0 Yes [id number] 2{puff} Inhale 2 [facility] propionate 4-22 6 Puffs ity of 220 00:00: every 12 [place] mcg/actuati 00 (twelve) Medi chen on inhaler hours. Branch fluticasone 2020-0 Yes [id number] 2{puff} Inhale 2 [facility] propionate 4-22 6 Puffs ity of 220 00:00: every 12 [place] mcg/actuati 00 (twelve) Medi chen on inhaler hours. Branch fluticasone 2020-0 Yes [id number] 2{puff} Inhale 2 [facility] propionate 4-22 6 Puffs ity of 220 00:00: every 12 [place] mcg/actuati 00 (twelve) Medi chen on inhaler hours. Branch fluticasone 2020-0 Yes [id number] 2{puff} Inhale 2 [facility] propionate 4-22 6 Puffs ity of 220 00:00: every 12 [place] mcg/actuati 00 (twelve) Medi chen on inhaler hours. Branch fluticasone 1-0 Yes [id number] 2{puff} Inhale 2 [facility] propionate 4-22 6 Puffs ity of 220 00:00: every 12 [place] mcg/actuati 00 (twelve) Medi chen on inhaler hours. Branch fluticasone 2020-0 Yes [id number] 2{puff} Inhale 2 [facility] propionate 4-22 6 Puffs ity of 220 00:00: every 12 [place] mcg/actuati 00 (twelve) Medi chen on inhaler hours. Branch fluticasone 2020-0 Yes [id number] 2{puff} Inhale 2 [facility] propionate 4-22 6 Puffs ity of 220 00:00: every 12 [place] mcg/actuati 00 (twelve) Medi chen on inhaler hours. Branch fluticasone 2020-0 Yes [id number] 2{puff} Inhale 2 [facility] propionate 4-22 6 Puffs ity of 220 00:00: every 12 [place] mcg/actuati 00 (twelve) Medi chen on inhaler hours. Branch fluticasone 2020-0 Yes [id number] 2{puff} Inhale 2 [facility] propionate 4-22 6 Puffs ity of 220 00:00: every 12 [place] mcg/actuati 00 (twelve) Medi chen on inhaler hours. Branch fluticasone 2020-0 Yes [id number] 2{puff} Inhale 2 [facility] propionate 4-22 6 Puffs ity of 220 00:00: every 12 [place] mcg/actuati 00 (twelve) Medi chen on inhaler hours. Branch fluticasone 2020-0 Yes [id number] 2{puff} Inhale 2 [facility] propionate 4-22 6 Puffs ity of 220 00:00: every 12 [place] mcg/actuati 00 (twelve) Medi chen on inhaler hours. Branch fluticasone 2020-0 Yes [id number] 2{puff} Inhale 2 [facility] propionate 4-22 6 Puffs ity of 220 00:00: every 12 [place] mcg/actuati 00 (twelve) Medi chen on inhaler hours. Branch fluticasone 2020-0 Yes [id number] 2{puff} Inhale 2 [facility] propionate 4-22 6 Puffs ity of 220 00:00: every 12 [place] mcg/actuati 00 (twelve) Medi chen on inhaler hours. Branch fluticasone 1-0 Yes [id number] 2{puff} Inhale 2 [facility] propionate 4-22 6 Puffs ity of 220 00:00: every 12 [place] mcg/actuati 00 (twelve) Medi chen on inhaler hours. Branch fluticasone 2020-0 Yes [id number] 2{puff} Inhale 2 [facility] propionate 4-22 6 Puffs ity of 220 00:00: every 12 [place] mcg/actuati 00 (twelve) Medi chen on inhaler hours. Branch fluticasone 2020-0 Yes [id number] 2{puff} Inhale 2 [facility] propionate 4-22 6 Puffs ity of 220 00:00: every 12 [place] mcg/actuati 00 (twelve) Medi chen on inhaler hours. Branch fluticasone 2020-0 Yes [id number] 2{puff} Inhale 2 [facility] propionate 4-22 6 Puffs ity of 220 00:00: every 12 [place] mcg/actuati 00 (twelve) Medi chen on inhaler hours. Branch fluticasone 2020-0 Yes [id number] 2{puff} Inhale 2 [facility] propionate 4-22 6 Puffs ity of 220 00:00: every 12 [place] mcg/actuati 00 (twelve) Medi chen on inhaler hours. Branch fluticasone 2020-0 Yes [id number] 2{puff} Inhale 2 [facility] propionate 4-22 6 Puffs ity of 220 00:00: every 12 [place] mcg/actuati 00 (twelve) Medi chen on inhaler hours. Branch fluticasone 2020-0 Yes [id number] 2{puff} Inhale 2 [facility] propionate 4-22 6 Puffs ity of 220 00:00: every 12 [place] mcg/actuati 00 (twelve) Medi chen on inhaler hours. Branch fluticasone 2020-0 Yes [id number] 2{puff} Inhale 2 [facility] propionate 4-22 6 Puffs ity of 220 00:00: every 12 [place] mcg/actuati 00 (twelve) Medi chen on inhaler hours. Branch fluticasone 2020-0 Yes [id number] 2{puff} Inhale 2 [facility] propionate 4-22 6 Puffs ity of 220 00:00: every 12 [place] mcg/actuati 00 (twelve) Medi chen on inhaler hours. Branch fluticasone 1-0 Yes [id number] 2{puff} Inhale 2 [facility] propionate 4-22 6 Puffs ity of 220 00:00: every 12 [place] mcg/actuati 00 (twelve) Medi chen on inhaler hours. Branch fluticasone 2020-0 Yes [id number] 2{puff} Inhale 2 [facility] propionate 4-22 6 Puffs ity of 220 00:00: every 12 [place] mcg/actuati 00 (twelve) Medi chen on inhaler hours. Branch dexamethaso 2020- No 10mg 10 mg, Uni [...] nebulizer Routine solution 6 mL benzonatate Yes [id number] 100mg Take 1 [facility] 100 mg 4-15 capsule by ity of capsule 00:00: mouth 3 [place] [id number] (three) Medical times Branch daily as needed for Cough. benzonatate Yes [id number] 100mg Take 1 [facility] 100 mg 4-15 capsule by ity of capsule 00:00: mouth 3 [place] (three) Medical times Branch daily as needed for Cough. benzonatate 0 Yes [id number] 100mg Take 1 [facility] 100 mg 4-15 capsule by ity of capsule 00:00: mouth 3 [place] (three) Medical times Branch daily as needed for Cough. benzonatate 2020-0 Yes [id number] 100mg Take 1 [facility] 100 mg 4-15 capsule by ity of capsule 00:00: mouth 3 [place] (three) Medical times Branch daily as needed for Cough. benzonatate 2020-0 Yes [id number] 100mg Take 1 [facility] 100 mg 4-15 capsule by ity of capsule 00:00: mouth 3 [place] (three) Medical times Branch daily as needed for Cough. benzonatate 2020-0 Yes [id number] 100mg Take 1 [facility] 100 mg 4-15 capsule by ity of capsule 00:00: mouth 3 [place] (three) Medical times Branch daily as needed for Cough. benzonatate 2020-0 Yes [id number] 100mg Take 1 [facility] 100 mg 4-15 capsule by ity of capsule 00:00: mouth (three) Medical times Branch daily as needed for Cough. benzonatate 2020-0 Yes [id number] 100mg Take 1 [facility] 100 mg 4-15 capsule by ity of capsule 00:00: mouth (three) Medical times Branch daily as needed for Cough. benzonatate 2020-0 Yes [id number] 100mg Take 1 [facility] 100 mg 4-15 capsule by ity of capsule 00:00: mouth (three) Medical times Branch daily as needed for Cough. benzonatate 2020-0 Yes [id number] 100mg Take 1 [facility] 100 mg 4-15 capsule by ity of capsule 00:00: mouth (three) Medical times Branch daily as needed for Cough. benzonatate 2020-0 Yes [id number] 100mg Take 1 [facility] 100 mg 4-15 capsule by ity of capsule 00:00: mouth (three) Medical times Branch daily as needed for Cough. benzonatate 2020-0 Yes [id number] 100mg Take 1 [facility] 100 mg 4-15 capsule by ity of capsule 00:00: mouth (three) Medical times Branch daily as needed for Cough. benzonatate 2020-0 Yes [id number] 100mg Take 1 [facility] 100 mg 4-15 capsule by ity of capsule 00:00: mouth (three) Medical times Branch daily as needed for Cough. benzonatate 2020-0 Yes [id number] 100mg Take 1 [facility] 100 mg 4-15 capsule by ity of capsule 00:00: mouth (three) Medical times Branch daily as needed for Cough. benzonatate 2020-0 Yes [id number] 100mg Take 1 [facility] 100 mg 4-15 capsule by ity of capsule 00:00: mouth (three) Medical times Branch daily as needed for Cough. benzonatate 2020-0 Yes [id number] 100mg Take 1 [facility] 100 mg 4-15 capsule by ity of capsule 00:00: mouth (three) Medical times Branch daily as needed for Cough. benzonatate 2020-0 Yes [id number] 100mg Take 1 [facility] 100 mg 4-15 capsule by ity of capsule 00:00: mouth (three) Medical times Branch daily as needed for Cough. benzonatate 2020-0 Yes [id number] 100mg Take 1 [facility] 100 mg 4-15 capsule by ity of capsule 00:00: mouth (three) Medical times Branch daily as needed for Cough. benzonatate 2020-0 Yes [id number] 100mg Take 1 [facility] 100 mg 4-15 capsule by ity of capsule 00:00: mouth (three) Medical times Branch daily as needed for Cough. benzonatate 2020-0 Yes [id number] 100mg Take 1 [facility] 100 mg 4-15 capsule by ity of capsule 00:00: mouth (three) Medical times Branch daily as needed for Cough. benzonatate 2020-0 Yes [id number] 100mg Take 1 [facility] 100 mg 4-15 capsule by ity of capsule 00:00: mouth (three) Medical times Branch daily as needed for Cough. benzonatate 2020-0 Yes [id number] 100mg Take 1 [facility] 100 mg 4-15 capsule by ity of capsule 00:00: mouth (three) Medical times Branch daily as needed for Cough. benzonatate 2020-0 Yes [id number] 100mg Take 1 [facility] 100 mg 4-15 capsule by ity of capsule 00:00: mouth (three) Medical times Branch daily as needed for Cough. benzonatate 2020-0 Yes [id number] 100mg Take 1 [facility] 100 mg 4-15 capsule by ity of capsule 00:00: mouth (three) Medical times Branch daily as needed for Cough. benzonatate 2020-0 Yes [id number] 100mg Take 1 [facility] 100 mg 4-15 capsule by ity of capsule 00:00: mouth (three) Medical times Branch daily as needed for Cough. benzonatate 2020-0 Yes [id number] 100mg Take 1 [facility] 100 mg 4-15 capsule by ity of capsule 00:00: mouth (three) Medical times Branch daily as needed for Cough. benzonatate 1-0 Yes [id number] 100mg Take 1 [facility] 100 mg 4-15 capsule by ity of capsule 00:00: mouth (three) Medical times Branch daily as needed for Cough. benzonatate 1-0 Yes [id number] 100mg Take 1 [facility] 100 mg 4-15 capsule by ity of capsule 00:00: mouth (three) Medical times Branch daily as needed for Cough. benzonatate Yes [id number] 100mg Take 1 [facility] 100 mg 4-15 [...] hours as Branch needed. hydrocortis 2020-0 Yes [id number] Apply to [facility] one 2.5 % 1-19 area(s) 2 ity o f cream 00:00: (two) [place] 00 times Medical daily. Branch hydrocortis 2020-0 Yes [id number] Apply to [facility] one 2.5 % 1-19 area(s) 2 ity o f cream 00:00: (two) [place] 00 times Medical daily. Branch hydrocortis 2020-0 Yes [id number] Apply to [facility] one 2.5 % 1-19 area(s) 2 ity o f cream 00:00: (two) [place] 00 times Medical daily. Branch hydrocortis 1-0 Yes [id number] Apply to [facility] one 2.5 % 1-19 area(s) 2 ity o f cream 00:00: (two) [place] 00 times Medical daily. Branch hydrocortis 1-0 Yes [id number] Apply to [facility] one 2.5 % 1-19 area(s) 2 ity o f cream 00:00: (two) [place] 00 times Medical daily. Branch hydrocortis 2020-0 Yes [id number] Apply to [facility] one 2.5 % 1-19 area(s) 2 ity o f cream 00:00: (two) [place] 00 times Medical daily. Branch hydrocortis 2020-0 Yes [id number] Apply to [facility] one 2.5 % 1-19 area(s) 2 ity o f cream 00:00: (two) [place] 00 times Medical daily. Branch hydrocortis 2020-0 Yes [id number] Apply to [facility] one 2.5 % 1-19 area(s) 2 ity o f cream 00:00: (two) [place] 00 times Medical daily. Branch hydrocortis 1-0 Yes [id number] Apply to [facility] one 2.5 % 1-19 area(s) 2 ity o f cream 00:00: (two) [place] 00 times Medical daily. Branch hydrocortis 1-0 Yes [id number] Apply to [facility] one 2.5 % 1-19 area(s) 2 ity o f cream 00:00: (two) [place] 00 times Medical daily. Branch hydrocortis 1-0 Yes [id number] Apply to [facility] one 2.5 % 1-19 area(s) 2 ity o f cream 00:00: (two) [place] 00 times Medical daily. Branch hydrocortis 1-0 Yes [id number] Apply to [facility] one 2.5 % 1-19 area(s) 2 ity o f cream 00:00: (two) [place] 00 times Medical daily. Branch hydrocortis 1-0 Yes [id number] Apply to [facility] one 2.5 % 1-19 area(s) 2 ity o f cream 00:00: (two) [place] 00 times Medical daily. Branch hydrocortis 1-0 Yes [id number] Apply to [facility] one 2.5 % 1-19 area(s) 2 ity o f cream 00:00: (two) [place] 00 times Medical daily. Branch hydrocortis 1-0 Yes [id number] Apply to [facility] one 2.5 % 1-19 area(s) 2 ity o f cream 00:00: (two) [place] 00 times Medical daily. Branch hydrocortis 1-0 Yes [id number] Apply to [facility] one 2.5 % 1-19 area(s) 2 ity o f cream 00:00: (two) [place] 00 times Medical daily. Branch hydrocortis 1-0 Yes [id number] Apply to [facility] one 2.5 % 1-19 area(s) 2 ity o f cream 00:00: (two) [place] 00 times Medical daily. Branch hydrocortis 1-0 Yes [id number] Apply to [facility] one 2.5 % 1-19 area(s) 2 ity o f cream 00:00: (two) [place] 00 times Medical daily. Branch hydrocortis 1-0 Yes [id number] Apply to [facility] one 2.5 % 1-19 area(s) 2 ity o f cream 00:00: (two) [place] 00 times Medical daily. Branch hydrocortis 1-0 Yes [id number] Apply to [facility] one 2.5 % 1-19 area(s) 2 ity o f cream 00:00: (two) [place] 00 times Medical daily. Branch hydrocortis 2021-0 Yes [id number] Apply to [facility] one 2.5 % 1-19 area(s) 2 ity o f cream 00:00: (two) [place] 00 times Medical daily. Branch hydrocortis 2021-0 Yes [id number] Apply to [facility] one 2.5 % 1-19 area(s) 2 ity o f cream 00:00: (two) [place] 00 times Medical daily. Branch hydrocortis 2020-0 Yes [id number] Apply to [facility] one 2.5 % 1-19 area(s) 2 ity o f cream 00:00: (two) [place] 00 times Medical daily. Branch hydrocortis 2020-0 Yes [id number] Apply to [facility] one 2.5 % 1-19 area(s) 2 ity o f cream 00:00: (two) [place] 00 times Medical daily. Branch hydrocortis 2020-0 Yes [id number] Apply to [facility] one 2.5 % 1-19 area(s) 2 ity o f cream 00:00: (two) [place] 00 times Medical daily. Branch hydrocortis 2020-0 Yes [id number] Apply to [facility] one 2.5 % 1-19 area(s) 2 ity o f cream 00:00: (two) [place] 00 times Medical daily. Branch hydrocortis 2020-0 Yes [id number] Apply to [facility] one 2.5 % 1-19 area(s) 2 ity o f cream 00:00: (two) [place] 00 times Medical daily. Branch hydrocortis 2020-0 Yes [id number] Apply to [facility] one 2.5 % 1-19 area(s) 2 ity o f cream 00:00: (two) [place] 00 times Medical daily. Branch hydrocortis 2020-0 Yes [id number] Apply to [facility] one 2.5 % 1-19 area(s) 2 ity o f cream 00:00: (two) [place] 00 times Medical daily. Branch hydrocortis 2020-0 Yes [id number] Apply to [facility] one 2.5 % 1-19 area(s) 2 ity o f cream 00:00: (two) [place] 00 times Medical daily. Branch hydrocortis 2020-0 Yes [id number] Apply to [facility] one 2.5 % 1-19 area(s) 2 ity o f cream 00:00: (two) [place] 00 times Medical daily. Branch hydrocortis 2020-0 Yes [id number] Apply to [facility] one 2.5 % 1-19 area(s) 2 ity o f cream 00:00: (two) [place] 00 times Medical daily. Branch ibuprofen 2020- 2020- No 600mg 600 mg, Uni vers (IBU) 11-06 Oral, ity of tablet 600 05:45: 04:42 ONCE, 1 [facility] as mg 00 :00 dose, [place] [facility] 09/05/20 at Branch 2345, DRAKE ibuprofen 2019- Yes [id number] 600mg Take 1 [facility] 600 mg 1-08 [id number] tablet by ity of tablet 00:00: mouth [place] 00 every 6 Medical (six) Branch hours as needed for Pain (scale 4-6). ibuprofen 2019- Yes [id number] 600mg Take 1 [facility] 600 mg 1-08 [id number] tablet by ity of tablet 00:00: mouth [place] 00 every 6 Medical (six) Branch hours as needed for Pain (scale 4-6). ibuprofen 2019-10 Yes [id number] 600mg Take 1 [facility] 600 mg 1-08 [id number] tablet by ity of tablet 00:00: mouth [place] 00 every 6 Medical (six) Branch hours as needed for Pain (scale 4-6). ibuprofen 2019-10 Yes [id number] 600mg Take 1 [facility] 600 mg 1-08 [id number] tablet by ity of tablet 00:00: mouth [place] 00 every 6 Medical (six) Branch hours as needed for Pain (scale 4-6). ibuprofen 2019-10 Yes [id number] 600mg Take 1 [facility] 600 mg 1-08 [id number] tablet by ity of tablet 00:00: mouth [place] 00 every 6 Medical (six) Branch hours as needed for Pain (scale 4-6). ibuprofen 2019-10 Yes [id number] 600mg Take 1 [facility] 600 mg 1-08 [id number] tablet by ity of tablet 00:00: mouth [place] 00 every 6 Medical (six) Branch hours as needed for Pain (scale 4-6). ibuprofen 2019-10 Yes [id number] 600mg Take 1 [facility] 600 mg 1-08 [id number] tablet by ity of tablet 00:00: mouth [place] 00 every 6 Medical (six) Branch hours as needed for Pain (scale 4-6). ibuprofen 2019- Yes [id number] 600mg Take 1 [facility] 600 mg 1-08 [id number] tablet by ity of tablet 00:00: mouth [place] 00 every 6 Medical (six) Branch hours as needed for Pain (scale 4-6). ibuprofen 2019- Yes [id number] 600mg Take 1 [facility] 600 mg 1-08 [id number] tablet by ity of tablet 00:00: mouth [place] 00 every 6 Medical (six) Branch hours as needed for Pain (scale 4-6). ibuprofen 2020-1 Yes [id number] 600mg Take 1 [facility] 600 mg 1-08 [id number] tablet by ity of tablet 00:00: mouth [place] 00 every 6 Medical (six) Branch hours as needed for Pain (scale 4-6). ibuprofen 2019-1 Yes [id number] 600mg Take 1 [facility] 600 mg 1-08 [id number] tablet by ity of tablet 00:00: mouth [place] 00 every 6 Medical (six) Branch hours as needed for Pain (scale 4-6). ibuprofen 2019- Yes [id number] 600mg Take 1 [facility] 600 mg 1-08 [id number] tablet by ity of tablet 00:00: mouth [place] 00 every 6 Medical (six) Branch hours as needed for Pain (scale 4-6). ibuprofen 2019-1 Yes [id number] 600mg Take 1 [facility] 600 mg 1-08 [id number] tablet by ity of tablet 00:00: mouth [place] 00 every 6 Medical (six) Branch hours as needed for Pain (scale 4-6). ibuprofen 2019- Yes [id number] 600mg Take 1 [facility] 600 mg 1-08 [id number] tablet by ity of tablet 00:00: mouth [place] 00 every 6 Medical (six) Branch hours as needed for Pain (scale 4-6). ibuprofen 2019-1 Yes [id number] 600mg Take 1 [facility] 600 mg 1-08 [id number] tablet by ity of tablet 00:00: mouth [place] 00 every 6 Medical (six) Branch hours as needed for Pain (scale 4-6). ibuprofen 2019-1 Yes [id number] 600mg Take 1 [facility] 600 mg 1-08 [id number] tablet by ity of tablet 00:00: mouth [place] 00 every 6 Medical (six) Branch hours as needed for Pain (scale 4-6). ibuprofen 2019-1 Yes [id number] 600mg Take 1 [facility] 600 mg 1-08 [id number] tablet by ity of tablet 00:00: mouth [place] 00 every 6 Medical (six) Branch hours as needed for Pain (scale 4-6). ibuprofen 2019-1 Yes [id number] 600mg Take 1 [facility] 600 mg 1-08 [id number] tablet by ity of tablet 00:00: mouth [place] 00 every 6 Medical (six) Branch hours as needed for Pain (scale 4-6). ibuprofen 2020-1 Yes [id number] 600mg Take 1 [facility] 600 mg 1-08 [id number] tablet by ity of tablet 00:00: mouth [place] 00 every 6 Medical (six) Branch hours as needed for Pain (scale 4-6). ibuprofen 2020-1 Yes [id number] 600mg Take 1 [facility] 600 mg 1-08 [id number] tablet by ity of tablet 00:00: mouth [place] 00 every 6 Medical (six) Branch hours as needed for Pain (scale 4-6). ibuprofen 2019-1 Yes [id number] 600mg Take 1 [facility] 600 mg 1-08 [id number] tablet by ity of tablet 00:00: mouth [place] 00 every 6 Medical (six) Branch hours as needed for Pain (scale 4-6). ibuprofen 2019- Yes [id number] 600mg Take 1 [facility] 600 mg 1-08 [id number] tablet by ity of tablet 00:00: mouth [place] 00 every 6 Medical (six) Branch hours as needed for Pain (scale 4-6). ibuprofen 2019- Yes [id number] 600mg Take 1 [facility] 600 mg 1-08 [id number] tablet by ity of tablet 00:00: mouth [place] 00 every 6 Medical (six) Branch hours as needed for Pain (scale 4-6). ibuprofen 2019- Yes [id number] 600mg Take 1 [facility] 600 mg 1-08 [id number] tablet by ity of tablet 00:00: mouth [place] 00 every 6 Medical (six) Branch hours as needed for Pain (scale 4-6). ibuprofen 2019-1 Yes [id number] 600mg Take 1 [facility] 600 mg 1-08 [id number] tablet by ity of tablet 00:00: mouth [place] 00 every 6 Medical (six) Branch hours as needed for Pain (scale 4-6). ibuprofen 2019-1 Yes [id number] 600mg Take 1 [facility] 600 mg 1-08 [id number] tablet by ity of tablet 00:00: mouth [place] 00 every 6 Medical (six) Branch hours as needed for Pain (scale 4-6). ibuprofen 2019-1 Yes [id number] 600mg Take 1 [facility] 600 mg 1-08 [id number] tablet by ity of tablet 00:00: mouth [place] 00 every 6 Medical (six) Branch hours as needed for Pain (scale 4-6). ibuprofen 2019-1 Yes [id number] 600mg Take 1 [facility] 600 mg 1-08 [id number] tablet by ity of tablet 00:00: mouth [place] 00 every 6 Medical (six) Branch hours as needed for Pain (scale 4-6). ibuprofen 2020-1 Yes [id number] 600mg Take 1 [facility] 600 mg 1-08 [id number] tablet by ity of tablet 00:00: mouth [place] 00 every 6 Medical (six) Branch hours as needed for Pain (scale 4-6). ibuprofen 2019-1 Yes [id number] 600mg Take 1 [facility] 600 mg 1-08 [id number] tablet by ity of tablet 00:00: mouth [place] 00 every 6 Medical (six) Branch hours as needed for Pain (scale 4-6). ibuprofen 2019- Yes [id number] 600mg Take 1 [facility] 600 mg 1-08 [id number] tablet by ity of tablet 00:00: mouth [place] 00 every 6 Medical (six) Branch hours as needed for Pain (scale 4-6). ibuprofen 2019- Yes [id number] 600mg Take 1 [facility] 600 mg 1-08 [id number] tablet by ity of tablet 00:00: mouth [place] 00 every 6 Medical (six) Branch hours as needed for Pain (scale 4-6). ibuprofen 2019-1 Yes [id number] 600mg Take 1 [facility] 600 mg 1-08 [id number] tablet by ity of tablet 00:00: mouth [place] 00 every 6 Medical (six) Branch hours as needed for Pain (scale 4-6). ibuprofen 2019-1 Yes [id number] 600mg Take 1 [facility] 600 mg 1-08 [id number] tablet by ity of tablet 00:00: mouth [place] 00 every 6 Medical (six) Branch hours as needed for Pain (scale 4-6). ibuprofen 2019-1 Yes [id number] 600mg Take 1 [facility] 600 mg 1-08 [id number] tablet by ity of tablet 00:00: mouth [place] 00 every 6 Medical (six) Branch hours as needed for Pain (scale 4-6). ibuprofen 2019-1 Yes [id number] 600mg Take 1 [facility] 600 mg 1-08 [id number] tablet by ity of tablet 00:00: mouth [place] 00 every 6 Medical (six) Branch hours as needed for Pain (scale 4-6). ibuprofen 2019-1 Yes [id number] 600mg Take 1 [facility] 600 mg 1-08 [id number] tablet by ity of tablet 00:00: mouth [place] 00 every 6 Medical (six) Branch hours as needed for Pain (scale 4-6). ibuprofen 2019-10 Yes [id number] 600mg Take 1 [facility] 600 mg 1-08 [id number] tablet by ity of tablet 00:00: mouth [place] 00 every 6 Medical (six) Branch hours as needed for Pain (scale 4-6). ibuprofen 2019-10 Yes [id number] 600mg Take 1 [facility] 600 mg 1-08 [id number] tablet by ity of tablet 00:00: mouth [place] 00 every 6 Medical (six) Branch hours as needed for Pain (scale 4-6). ibuprofen 2019-10 Yes [id number] 600mg Take 1 [facility] 600 mg 1-08 [id number] tablet by ity of tablet 00:00: mouth [place] 00 every 6 Medical (six) Branch hours as needed for Pain (scale 4-6). cephALEXin 2019-10 2020- No [id number] 500mg Take 1 [facility] (KEFLEX) 0-02 10-10 capsule by ity of 500 mg 00:00: 04:59 mouth 4 [place] capsule 00 :00 (four) Medical times Branch daily for 7 days. cephALEXin 2019-10- No [id number] 500mg Take 1 [facility] (KEFLEX) 0-02 10-10 capsule by ity of 500 mg 00:00: 04:59 mouth 4 [place] capsule 00 :00 (four) Medical times Branch daily for 7 days. cephALEXin 2019-10 2020- No [id number] 500mg Take 1 [facility] (KEFLEX) 0-02 10-10 capsule by ity of 500 mg 00:00: 04:59 mouth 4 [place] capsule 00 :00 (four) Medical times Branch daily for 7 days. cephALEXin 2019-10 2020- No [id number] 500mg Take 1 [facility] (KEFLEX) 0-02 10-10 capsule by ity of 500 mg 00:00: 04:59 mouth 4 [place] capsule 00 :00 (four) Medical times Branch daily for 7 days. permethrin 2020- No [id number] Apply to [facility] 1 % lotion 07-16 area(s) ity o f 00:00: 04:59 once now [place] 00 :00 for 1 Medical dose. Branch follow package directions amoxicillin Yes [id number] 875mg Take 11 mL [facility] 400 mg/5 mL 5-04 by mouth 2 it y of oral 00:00: (two) [place] suspension 00 times Medical daily. Branch amoxicillin Yes [id number] 875mg Take 11 mL [facility] 400 mg/5 mL 5-04 by mouth 2 it y of oral 00:00: (two) [place] suspension 00 times Medical daily. Branch amoxicillin 2020-0 Yes [id number] 875mg Take 11 mL [facility] 400 mg/5 mL 5-04 by mouth 2 it y of oral 00:00: (two) [place] suspension 00 times Medical daily. Branch amoxicillin 2020-0 2020- No [id number] 875mg Take 11 mL [facility] 400 mg/5 mL 5-04 09-10 by mouth 2 i ty of oral 00:00: 00:00 (two) [place] suspension 00 :00 times Medical daily. Branch amoxicillin 2020-0 2020- No [id number] 875mg Take 11 mL [facility] 400 mg/5 mL 5-04 09-10 by mouth 2 i ty of oral 00:00: 00:00 (two) [place] suspension 00 :00 times Medical daily. Branch amoxicillin 2020-0 2020- No [id number] 875mg Take 11 mL [facility] 400 mg/5 mL 5-04 05-04 by mouth 2 i ty of oral 00:00: 00:00 (two) [place] suspension 00 :00 times Medical daily for Branch 10 days. amoxicillin 2020-0 2020- No [id number] 875mg Take 11 mL [facility] 400 mg/5 mL 5-04 05-04 by mouth 2 i ty of oral 00:00: 00:00 (two) [place] suspension 00 :00 times Medical daily. Branch amoxicillin 2020-0 2020- No [id number] 875mg Take 11 mL [facility] 400 mg/5 mL 5-04 05-04 by mouth 2 i ty of oral 00:00: 00:00 (two) [place] suspension 00 :00 times Medical daily. Branch amoxicillin 2020-0 2020- No [id number] 875mg Take 11 mL [facility] 400 mg/5 mL 5-04 05-04 by mouth 2 i ty of oral 00:00: 00:00 (two) [place] suspension 00 :00 times Medical daily for Branch 10 days. amoxicillin 2020-0 2020- No [id number] 875mg Take 11 mL [facility] 400 mg/5 mL 5-04 05-04 by mouth 2 i ty of oral 00:00: 00:00 (two) [place] suspension 00 :00 times Medical daily. Branch amoxicillin 2020-0 2020- No [id number] 875mg Take 11 mL [facility] 400 mg/5 [...] hours as Branch needed. azithromyci 2020-0 Yes [id number] Take 500 [facility] n 250 mg 3-18 mg day 1, ity of tablet 00:00: then 250 [place] 00 mg days 2 Medical to 5. Branch PROAIR HFA 2020-0 Yes [id number] 2{puff} Inhale 2 [facility] 90 3-18 Puffs ity of mcg/actuati 00:00: every 4 [place] on inhaler 00 (four) Medical hours as Branch needed for Wheezing or Shortness of Breath (or cough). Brand medically necessary azithromyci 2020-0 Yes [id number] Take 500 [facility] n 250 mg 3-18 mg day 1, ity of tablet 00:00: then 250 [place] 00 mg days 2 Medical to 5. Branch PROAIR HFA 2020-0 Yes [id number] 2{puff} Inhale 2 [facility] 90 3-18 Puffs ity of mcg/actuati 00:00: every 4 [place] on inhaler 00 (four) Medical hours as Branch needed for Wheezing or Shortness of Breath (or cough). Brand medically necessary azithromyci 2020-0 Yes [id number] Take 500 [facility] n 250 mg 3-18 mg day 1, ity of tablet 00:00: then 250 [place] 00 mg days 2 Medical to 5. Branch PROAIR HFA 2020-0 Yes [id number] 2{puff} Inhale 2 [facility] 90 3-18 Puffs ity of mcg/actuati 00:00: every 4 [place] on inhaler 00 (four) Medical hours as Branch needed for Wheezing or Shortness of Breath (or cough). Brand medically necessary azithromyci 2020-0 Yes [id number] Take 500 [facility] n 250 mg 3-18 mg day 1, ity of tablet 00:00: then 250 [place] 00 mg days 2 Medical to 5. Branch azithromyci 2020-0 Yes [id number] Take 500 [facility] n 250 mg 3-18 mg day 1, ity of tablet 00:00: then 250 [place] 00 mg days 2 Medical to 5. Branch PROAIR HFA 2019-0 Yes [id number] 2{puff} Inhale 2 [facility] 90 3-18 Puffs ity of mcg/actuati 00:00: every 4 [place] on inhaler 00 (four) Medical hours as Branch needed for Wheezing or Shortness of Breath (or cough). Brand medically necessary azithromyci 2020-0 Yes [id number] Take 500 [facility] n 250 mg 3-18 mg day 1, ity of tablet 00:00: then 250 [place] 00 mg days 2 Medical to 5. Branch PROAIR HFA 2019-0 Yes [id number] 2{puff} Inhale 2 [facility] 90 3-18 Puffs ity of mcg/actuati 00:00: every 4 [place] on inhaler 00 (four) Medical hours as Branch needed for Wheezing or Shortness of Breath (or cough). Brand medically necessary azithromyci 0 2020- No [id number] Take 500 [facility] n 250 mg 3-18 04-22 mg day 1, ity o f tablet 00:00: 00:00 then 250 [place] 00 :00 mg days 2 Medical to 5. Branch PROAIR HFA 2020- No [id number] 2{puff} Inhale 2 [facility] 90 3-18 03-24 Puffs ity of mcg/actuati 00:00: 00:00 every 4 [place] on inhaler 00 :00 (four) Medical hours as Branch needed for Wheezing or Shortness of Breath (or cough). Brand medically necessary penicillin 2019- 2020- No 1.210 Unive rs g 01-09 ity of benzathine 18:20: 18:29 [place] (BICILLIN 00 :00 Medical L-A) Branch injection 1.2 Million Units penicillin 2019- 2020- No 1.210 1.2 Unive rs g 01-09- Million ity of benzathine 18:20: 18:29 [place], [place] (BICILLIN 00 :00 Intramuscu Medi chen L-A) lar, ONCE Branch injection NOW, 1 1.2 Million dose, Sat Units 3/14/20 at 1330, DRAKE
Re ason for Anti-Infec [...] dose, Sat Med ical suspension 01/10/20 at [facility] 600 mg 1315, Routine spinosad 2020- No [id number] Apply to [facility] ([facility]) 01-09 area(s) ity of 0.9 % 00:00: 04:59 once now [place] suspension 00 :00 for 1 Medical dose. Use Branch as directed. May repeat in 10 - 14 days if needed. ivermectin 2020-0 Yes [id number] Apply to [facility] - completely ity o f 0.5 % 00:00: coat dry [place] lotion 00 scalp and Medical hair. Branch Leave on for 10 minutes, rinse with warm water. May repeat in 10 days if needed. ivermectin 2020-0 Yes [id number] Apply to [facility] 3- completely ity o f 0.5 % 00:00: coat dry [place] lotion 00 scalp and Medical hair. Branch Leave on for 10 minutes, rinse with warm water. May repeat in 10 days if needed. ivermectin 2020-0 Yes [id number] Apply to [facility] 3- completely ity o f 0.5 % 00:00: coat dry [place] lotion 00 scalp and Medical hair. Branch Leave on for 10 minutes, rinse with warm water. May repeat in 10 days if needed. ivermectin 2020-0 Yes [id number] Apply to [facility] 3-12 completely ity o f 0.5 % 00:00: coat dry [place] lotion 00 scalp and Medical hair. Branch Leave on for 10 minutes, rinse with warm water. May repeat in 10 days if needed. ivermectin 2020-0 Yes [id number] Apply to [facility] 312 completely ity o f 0.5 % 00:00: coat dry [place] lotion 00 scalp and Medical hair. Branch Leave on for 10 minutes, rinse with warm water. May repeat in 10 days if needed. ivermectin 2020-0 Yes [id number] Apply to [facility] 312 completely ity o f 0.5 % 00:00: coat dry [place] lotion 00 scalp and Medical hair. Branch Leave on for 10 minutes, rinse with warm water. May repeat in 10 days if needed. ivermectin 2020-0 Yes [id number] Apply to [facility] 312 completely ity o f 0.5 % 00:00: coat dry [place] lotion 00 scalp and Medical hair. Branch Leave on for 10 minutes, rinse with warm water. May repeat in 10 days if needed. ivermectin 2020-0 Yes [id number] Apply to [facility] 3 completely ity o f 0.5 % 00:00: coat dry [place] lotion 00 scalp and Medical hair. Branch Leave on for 10 minutes, rinse with warm water. May repeat in 10 days if needed. ivermectin 2020-0 Yes [id number] Apply to [facility] 3 completely ity o f 0.5 % 00:00: coat dry [place] lotion 00 scalp and Medical hair. Branch Leave on for 10 minutes, rinse with warm water. May repeat in 10 days if needed. ivermectin 2020-0 Yes [id number] Apply to [facility] 3 completely ity o f 0.5 % 00:00: coat dry [place] lotion 00 scalp and Medical hair. Branch Leave on for 10 minutes, rinse with warm water. May repeat in 10 days if needed. ivermectin 2020-0 2020- No [id number] Apply to [facility] 01-07 completely ity of 0.5 % 00:00: 00:00 coat dry [place] lotion 00 :00 scalp and Medical hair. Branch Leave on for 10 minutes, rinse with warm water. May repeat in 10 days if needed. ivermectin 2020-0 2020- No [id number] Apply to [facility] 3-12 03-22 completely ity of 0.5 % 00:00: 00:00 coat dry [place] lotion 00 :00 scalp and Medical hair. Branch Leave on for 10 minutes, rinse with warm water. May repeat in 10 days if needed. mupirocin 2 2020-0 Yes [id number] Apply to [facility] % ointment 3-09 area(s) 3 ity of 00:00: (three) [place] 00 times Medical daily. Branch mupirocin 2 2020-0 Yes [id number] Apply to [facility] % ointment 3-09 area(s) 3 ity of 00:00: (three) [place] 00 times Medical daily. Branch mupirocin 2 2020-0 Yes [id number] Apply to [facility] % ointment 3-09 area(s) 3 ity of 00:00: (three) [place] 00 times Medical daily. Branch mupirocin 2 2020-0 Yes [id number] Apply to [facility] % ointment 3-09 area(s) 3 ity of 00:00: (three) [place] 00 times Medical daily. Branch mupirocin 2 2020-0 Yes [id number] Apply to [facility] % ointment 3-09 area(s) 3 ity of 00:00: (three) [place] 00 times Medical daily. Branch mupirocin 2 2020-0 Yes [id number] Apply to [facility] % ointment 3-09 area(s) 3 ity of 00:00: (three) [place] 00 times Medical daily. Branch mupirocin 2 2020-0 Yes [id number] Apply to [facility] % ointment 3-09 area(s) 3 ity of 00:00: (three) [place] 00 times Medical daily. Branch mupirocin 2 2020-0 Yes [id number] Apply to [facility] % ointment 3-09 area(s) 3 ity of 00:00: (three) [place] 00 times Medical daily. Branch mupirocin 2 2020-0 Yes [id number] Apply to [facility] % ointment 3-09 area(s) 3 ity of 00:00: (three) [place] 00 times Medical daily. Branch mupirocin 2 2020-0 Yes [id number] Apply to [facility] % ointment 3-09 area(s) 3 ity of 00:00: (three) [place] 00 times Medical daily. Branch mupirocin 2 2020-0 Yes [id number] Apply to [facility] % ointment 3- area(s) 3 ity of 00:00: (three) [place] 00 times Medical daily. Branch mupirocin 2 2020-0 2020- No [id number] Apply to [facility] % ointment 301-17 area(s) 3 ity of 00:00: 00:00 (three) [place] 00 :00 times Medical daily. Branch mupirocin 2 2020-0 2020- No [id number] Apply to [facility] % ointment 301-17 area(s) 3 ity of 00:00: 00:00 (three) [place] 00 :00 times Medical daily. Branch metoclopram 2020-0 Yes [id number] 1 tab Un danny rossy HCl 10 3-07 every 4hr ity of mg tablet 00:00: as needed [facility] as 00 for nausea Medical Branch metoclopram 2020-0 Yes [id number] tab Un danny rossy HCl 10 3-07 every 4hr ity of mg tablet 00:00: as needed [place] as 00 for nausea Medical Branch metoclopram 2020-0 Yes [id number] 1 tab Un danny rossy HCl 10 3-07 every 4hr ity of mg tablet 00:00: as needed [facility] as 00 for nausea Medical Branch metoclopram 2020-0 Yes [id number] 1 tab Un danny rossy HCl 10 3-07 every 4hr ity of mg tablet 00:00: as needed [facility] as 00 for nausea Medical Branch metoclopram 2020-0 Yes [id number] 1 tab Un danny rossy HCl 10 3-07 every 4hr ity of mg tablet 00:00: as needed [facility] as 00 for nausea Medical Branch metoclopram 2020-0 Yes [id number] 1 tab Un danny rossy HCl 10 3-07 every 4hr ity of mg tablet 00:00: as needed [facility] as 00 for nausea Medical Branch metoclopram 2020-0 Yes [id number] 1 tab Un danny rossy HCl 10 3-07 every 4hr ity of mg tablet 00:00: as needed [place] as 00 for nausea Medical Branch metoclopram 2020-0 Yes [id number] 1 tab Un danny rossy HCl 10 3-07 every 4hr ity of mg tablet 00:00: as needed [place] as 00 for nausea Medical Branch metoclopram 2020-0 Yes [id number] 1 tab Un danny rossy HCl 10 3-07 every 4hr ity of mg tablet 00:00: as needed [facility] as 00 for nausea Medical Branch metoclopram 2020-0 Yes [id number] 1 tab Un danny rossy HCl 10 3-07 every 4hr ity of mg tablet 00:00: as needed [place] as 00 for nausea Medical Branch metoclopram 2020-0 Yes [id number] 1 tab Un danny rossy HCl 10 3-07 every 4hr ity of mg tablet 00:00: as needed [facility] as 00 for nausea Medical Branch metoclopram 2020-0 Yes [id number] 1 tab Un danny rossy HCl 10 3-07 every 4hr ity of mg tablet 00:00: as needed [facility] as 00 for nausea Medical Branch metoclopram 2020-0 2020- No [id number] 1 tab U nivers rossy HCl 10 3-07 03-22 every 4hr ity of mg tablet 00:00: 00:00 [place] 00 :00 for nausea Medical Branch metoclopram 2020-0 2020- No [id number] 1 tab U nivers rossy HCl 10 3-07 03-22 every 4hr ity of mg tablet 00:00: 00:00 [place] needed [place] 00 :00 for nausea Medical Branch spinosad 2018- Yes [id number] Apply to U nivers ([place]) 8-12 coat scalp ity of 0.9 % 00:00: and dry [place] suspension 00 hair, Medical rinse off Branch thoroughly after 10 minutes. May repeat in 7 days if live lice still seen. spinosad Yes [id number] Apply to [facility] ([place]) 8-12 coat scalp ity of 0.9 % 00:00: and dry [place] suspension 00 hair, Medical rinse off Branch thoroughly after 10 minutes. May repeat in 7 days if live lice still seen. spinosad 2018- 2019- No [id number] Apply to [facility] ([place]) 06-09 coat scalp ity of 0.9 % 00:00: 00:00 and dry [place] suspension 00 :00 hair, Medical rinse off Branch thoroughly after 10 minutes. May repeat in 7 days if live lice still seen. spinosad 2019- No [id number] Apply to [facility] ([place]) 06-09 coat scalp [...] [place] 00 :00 daily. Medical Branch ivermectin 2017-10- No [id number] Apply to [facility] ([place]) 206-09 completely ity of 0.5 % 00:00: 00:00 [...] 2017-10- No Apply to U [facility]ivers ne 0-31 07-09 affected ity of acetonide 00:00: 00:00 area(s) 2 [place] 0.1 % cream 00 :00 (two) Medical times Branch daily. ca 2017-10 2019- No 1{packe Apply 1 Univer s acetate-alu 07-09 t} Packet to it y of m sulfate 00:00: 00:00 area(s) 2 [place] topical 00 :00 (two) Medical packet times Branch daily. triamcinolo 2017-10 2019- No Apply to U nivers ne 07-09 affected ity of acetonide 00:00: 00:00 area(s) 2 [place] 0.1 % cream 00 :00 (two) Medical times Branch daily. ca 2017-10 2019- No 1{packe Apply 1 Univer s acetate-alu 07-09 t} Packet to it y of m sulfate 00:00: 00:00 area(s) 2 [place] topical 00 :00 (two) Medical packet times Branch daily. mupirocin Yes [id number] Apply to [facility] ([place]ROB[place]) 07-22 area(s) 3 ity of 2 % cream 00:00: (three) [place] 00 times Medical daily. Branch sodium Yes [id number] 1{spray Use 1 Uni vers chloride 07-22 } [place] in ity of 0.65 % 00:00: each [place] nasal spray 00 nostril as Me dical needed Branch (bid). mupirocin Yes [id number] Apply to [facility] ([place]OB[place]) 07-22 area(s) 3 ity of 2 % cream 00:00: (three) [place] 00 times Medical daily. Branch sodium Yes [id number] 1{spray Use 1 Uni vers chloride 07-22 } [place] in ity of 0.65 % 00:00: each [place] nasal spray 00 nostril as Me dical needed Branch (bid). mupirocin 2019- No [id number] Apply to [facility] ([place]ROB[place]) 07-22 area(s) 3 it y of 2 % cream 00:00: 00:00 (three[place] 00 :[place] times Medical daily. Branch sodium 2019- No [id number] 1{spray Use 1 Un danny chloride 9-24 09-11 } [place] in ity of 0.65 % 00:00: 00:00 each [place] nasal spray 00 :00 nostril as Me dical needed Branch (bid). mupirocin 2019- No [id number] Apply to [facility] ([place]OB[place]) 07-22 area(s) 3 it y of 2 % cream 00:00: 00:00 (three[place] :[place] times Medical daily. Branch sodium 2019- No [id number] 1{spray Use 1 Un danny chloride 07-22 } [place] in ity of 0.65 % 00:00: 00:00 each [place] nasal spray 00 :00 nostril as Me dical needed Branch (bid). No known No [facility] medications ity [facility] No known No [facility] Immun[facility] Ordered Immunization Filled Date Status Comments Sour ce Name Immunization Name Influenza Virus 2020-08-31 Completed Universit y of Vaccine Quad .5 mL IM 00:00:00 [facility] Medical 6+ MO Branch Meningococcal B, OMV 2020-08-31 Completed Univ ersity of 00:00:00 [facility] Influenza Virus 2020-08-31 Completed Universit y of Vaccine Quad .5 mL IM 00:00:00 [facility] Medical 6+ MO Branch Meningococcal B, OMV 2020-08-31 Completed Univ ersity of 00:00:00 [facility] Influenza Virus 2020-08-31 Completed Universit y of Vaccine Quad .5 mL IM 00:00:00 [facility] Medical 6+ MO Branch Meningococcal B, OMV 2020-08-31 Completed Univ ersity of 00:00:00 [facility] Influenza Virus 2020-08-31 Completed Universit y of Vaccine Quad .5 mL IM 00:00:00 [facility] 6+ MO Branch Meningococcal B, OMV 2020-08-31 Completed Univ ersity of 00:00:00 [facility] Influenza Virus 2020-08-31 Completed Universit y of Vaccine Quad .5 mL IM 00:00:00 [facility] Medical 6+ MO Branch Meningococcal B, OMV 2020-08-31 Completed Univ ersity of 00:00:00 [facility] Influenza Virus 2020-08-31 Completed Universit y of Vaccine Quad .5 mL IM 00:00:00 [facility] 6+ MO Branch Meningococcal B, OMV 2020-08-31 Completed Univ ersity of 00:00:00 [facility] Influenza Virus 2020-08-31 Completed Universit y of Vaccine Quad .5 mL IM 00:00:00 [facility] Medical 6+ MO Branch Meningococcal B, OMV 2020-08-31 Completed Univ ersity of 00:00:00 [facility] Influenza Virus 2020-08-31 Completed Universit y of Vaccine Quad .5 mL IM 00:00:00 [facility] Medical 6+ MO Branch Meningococcal B, OMV 2020-08-31 Completed Univ ersity of 00:00:00 [facility] Influenza Virus 2020-08-31 Completed Universit y of Vaccine Quad .5 mL IM 00:00:00 [facility] Medical 6+ MO Branch Meningococcal B, OMV 2020-08-31 Completed Univ ersity of 00:00:00 [facility] Influenza Virus 2020-08-31 Completed Universit y of Vaccine Quad .5 mL IM 00:00:00 [facility] 6+ MO Branch Meningococcal B, OMV 2020-08-31 Completed Univ ersity of 00:00:00 [facility] Influenza Virus 2020-08-31 Completed Universit y of Vaccine Quad .5 mL IM 00:00:00 [facility] Medical 6+ MO Branch Meningococcal B, OMV 2020-08-31 Completed Univ ersity of 00:00:00 [facility] Influenza Virus 2020-08-31 Completed Universit y of Vaccine Quad .5 mL IM 00:00:00 [facility] Medical 6+ MO Branch Meningococcal B, OMV 2020-08-31 Completed Univ ersity of 00:00:00 [facility] Influenza Virus 2020-08-31 Completed Universit y of Vaccine Quad .5 mL IM 00:00:00 [facility] Medical 6+ MO Branch Meningococcal B, OMV 2020-08-31 Completed Univ ersity of 00:00:00 [facility] Influenza Virus 2020-08-31 Completed Universit y of Vaccine Quad .5 mL IM 00:00:00 [facility] Medical 6+ MO Branch Meningococcal B, OMV 2020-08-31 Completed Univ ersity of 00:00:00 [facility] Influenza Virus 2020-08-31 Completed Universit y of Vaccine Quad .5 mL IM 00:00:00 [facility] Medical 6+ MO Branch Meningococcal B, OMV 2020-08-31 Completed Univ ersity of 00:00:00 [facility] Influenza Virus 2020-08-31 Completed Universit y of Vaccine Quad .5 mL IM 00:00:00 [facility] Medical 6+ MO Branch Meningococcal B, OMV 2020-08-31 Completed Univ ersity of 00:00:00 [facility] Influenza Virus 2020-08-31 Completed Universit y of Vaccine Quad .5 mL IM 00:00:00 [facility] Medical 6+ MO Branch Meningococcal B, OMV 2020-08-31 Completed Univ ersity of 00:00:00 [facility] Influenza Virus 2020-08-31 Completed Universit y of Vaccine Quad .5 mL IM 00:00:00 [facility] Medical 6+ MO Branch Meningococcal B, OMV 2020-08-31 Completed Univ ersity of 00:00:00 [facility] Influenza Virus 2020-08-31 Completed Universit y of Vaccine Quad .5 mL IM 00:00:00 [facility] Medical 6+ MO Branch Meningococcal B, OMV 2020-08-31 Completed Univ ersity of 00:00:00 [facility] Influenza Virus 2020-08-31 Completed Universit y of Vaccine Quad .5 mL IM 00:00:00 [facility] Medical 6+ MO Branch Meningococcal B, OMV 2020-08-31 Completed Univ ersity of 00:00:00 [facility] Influenza Virus 2020-08-31 Completed Universit y of Vaccine Quad .5 mL IM 00:00:00 [facility] Medical 6+ MO Branch Meningococcal B, OMV 2020-08-31 Completed Univ ersity of 00:00:00 [facility] Influenza Virus 2020-08-31 Completed Universit y of Vaccine Quad .5 mL IM 00:00:00 [facility] Medical 6+ MO Branch Meningococcal B, OMV 2020-08-31 Completed Univ ersity of 00:00:00 [facility] Influenza Virus 2020-08-31 Completed Universit y of Vaccine Quad .5 mL IM 00:00:00 [facility] Medical 6+ MO Branch Meningococcal B, OMV 2020-08-31 Completed Univ ersity of 00:00:00 [facility] Influenza Virus 2020-08-31 Completed Universit y of Vaccine Quad .5 mL IM 00:00:00 [facility] Medical 6+ MO Branch Meningococcal B, OMV 2020-08-31 Completed Univ ersity of 00:00:00 [facility] Influenza Virus 2020-08-31 Completed Universit y of Vaccine Quad .5 mL IM 00:00:00 [facility] Medical 6+ MO Branch Meningococcal B, OMV 2020-08-31 Completed Univ ersity of 00:00:00 [facility] Influenza Virus 2020-08-31 Completed Universit y of Vaccine Quad .5 mL IM 00:00:00 [facility] Medical 6+ MO Branch Meningococcal B, OMV 2020-08-31 Completed Univ ersity of 00:00:00 [facility] Influenza Virus 2020-08-31 Completed Universit y of Vaccine Quad .5 mL IM 00:00:00 [facility] Medical 6+ MO Branch Meningococcal B, OMV 2020-08-31 Completed Univ ersity of 00:00:00 [facility] Influenza Virus 2020-08-31 Completed Universit y of Vaccine Quad .5 mL IM 00:00:00 [facility] Medical 6+ MO Branch Meningococcal B, OMV 2020-08-31 Completed Univ ersity of 00:00:00 [facility] Influenza Virus 2020-08-31 Completed Universit y of Vaccine Quad .5 mL IM 00:00:00 [facility] as Medical 6+ MO Branch Meningococcal B, OMV 2020-08-31 Completed Univ ersity of 00:00:00 [facility] Influenza Virus 2020-08-31 Completed Universit y of Vaccine Quad .5 mL IM 00:00:00 [facility] Medical 6+ MO Branch Meningococcal B, OMV 2020-08-31 Completed Univ ersity of 00:00:00 [facility] Influenza Virus 2020-08-31 Completed Universit y of Vaccine Quad .5 mL IM 00:00:00 [facility] Medical 6+ MO Branch Meningococcal B, OMV 2020-08-31 Completed Univ ersity of 00:00:00 [facility] Influenza Virus 2020-08-31 Completed Universit y of Vaccine Quad .5 mL IM 00:00:00 [facility] Medical 6+ MO Branch Meningococcal B, OMV 2020-08-31 Completed Univ ersity of 00:00:00 [facility] Influenza Virus 2020-08-31 Completed Universit y of Vaccine Quad .5 mL IM 00:00:00 [facility] Medical 6+ MO Branch Meningococcal B, OMV 2020-08-31 Completed Univ ersity of 00:00:00 [facility] Influenza Virus 2020-08-31 Completed Universit y of Vaccine Quad .5 mL IM 00:00:00 [facility] Medical 6+ MO Branch Meningococcal B, OMV 2020-08-31 Completed Univ ersity of 00:00:00 [facility] Influenza Virus 2020-08-31 Completed Universit y of Vaccine Quad .5 mL IM 00:00:00 [facility] Medical 6+ MO Branch Meningococcal B, OMV 2020-08-31 Completed Univ ersity of 00:00:00 [facility] Influenza Virus 2020-08-31 Completed Universit y of Vaccine Quad .5 mL IM 00:00:00 [facility] Medical 6+ MO Branch Meningococcal B, OMV 2020-08-31 Completed Univ ersity of 00:00:00 [facility] Influenza Virus 2020-08-31 Completed Universit y of Vaccine Quad .5 mL IM 00:00:00 [facility] Medical 6+ MO Branch Meningococcal B, OMV 2020-08-31 Completed Univ ersity of 00:00:00 [facility] Influenza Virus 2020-08-31 Completed Universit y of Vaccine Quad .5 mL IM 00:00:00 [facility] Medical 6+ MO Branch Meningococcal B, OMV 2020-08-31 Completed Univ ersity of 00:00:00 [facility] Influenza Virus 2020-08-31 Completed Universit y of Vaccine Quad .5 mL IM 00:00:00 [facility] Medical 6+ MO Branch Meningococcal B, OMV 2020-08-31 Completed Univ ersity of 00:00:00 [facility] Influenza Virus 2020-08-31 Completed Universit y of Vaccine Quad .5 mL IM 00:00:00 [facility] Medical 6+ MO Branch Meningococcal B, OMV 2020-08-31 Completed Univ ersity of 00:00:00 [facility] Influenza Virus 2020-08-31 Completed Universit y of Vaccine Quad .5 mL IM 00:00:00 [facility] Medical 6+ MO Branch Meningococcal B, OMV 2020-08-31 Completed Univ ersity of 00:00:00 [facility] Influenza Virus 2020-08-31 Completed Universit y of Vaccine Quad .5 mL IM 00:00:00 [facility] Medical 6+ MO Branch Meningococcal B, OMV 2020-08-31 Completed Univ ersity of 00:00:00 [facility] Influenza Virus 2020-08-31 Completed Universit y of Vaccine Quad .5 mL IM 00:00:00 [facility] Medical 6+ MO Branch Meningococcal B, OMV 2020-08-31 Completed Univ ersity of 00:00:00 [place] [facility] Influenza Virus 2020-08-31 Completed Universit y of Vaccine Quad .5 mL IM 00:00:00 [facility] as Medical 6+ MO Branch Meningococcal B, OMV 2020-08-31 Completed Univ ersity of 00:00:00 [place] [facility] Branch Influenza Virus 2020-08-31 Completed Universit y of Vaccine Quad .5 mL IM 00:00:00 [facility] as Medical 6+ MO Branch Meningococcal B, OMV 2020-08-31 Completed Univ ersity of 00:00:00 [place] [facility] Influenza Virus 2019-09-02 Completed Universit y [...] of Vaccine Quad .5 mL IM 00:00:00 [facility] as Medical 6+ MO Branch Influenza Virus [...] of Vaccine Quad .5 mL IM 00:00:00 [facility] as Medical 6+ MO Branch Influenza Virus [...] of Vaccine Quad .5 mL IM 00:00:00 Ej[facility] as Medical 6+ MO Branch Influenza Virus [...] OMV 2019-07-09 Completed Univ ersity of 00:00:00 [facility] Meningococcal 2019-07-09 Completed University of Polysaccharide (groups 00:00:00 [place] [facility] A, C, Y and W-135) Branch conjugate vaccine (MCV4P) Meningococcal B, OMV 2019-07-09 Completed Univ ersity of 00:00:00 [facility] Meningococcal 2019-07-09 Completed University of Polysaccharide (groups 00:00:00 [place] [facility] A, C, Y and W-135) Branch conjugate vaccine (MCV4P) Meningococcal B, OMV 2019-07-09 Completed Univ ersity of 00:00:00 [facility] Meningococcal 2019-07-09 Completed University of Polysaccharide (groups 00:00:00 [place] [facility] A, C, Y and W-135) Branch conjugate vaccine (MCV4P) Meningococcal B, OMV 2019-07-09 Completed Univ ersity of 00:00:00 [facility] Meningococcal 2019-07-09 Completed University of Polysaccharide (groups 00:00:00 [place] [facility] A, C, Y and W-135) Branch conjugate vaccine (MCV4P) Meningococcal B, OMV 2019-07-09 Completed Univ ersity of 00:00:00 [facility] Meningococcal 2019-07-09 Completed University of Polysaccharide (groups 00:00:00 [place] [facility] A, C, Y and W-135) Branch conjugate vaccine (MCV4P) Meningococcal B, OMV 2019-07-09 Completed Univ ersity of 00:00:00 [facility] Meningococcal 2019-07-09 Completed University of Polysaccharide (groups 00:00:00 [place] [facility] A, C, Y and W-135) Branch conjugate vaccine (MCV4P) Meningococcal B, OMV 2019-07-09 Completed Univ ersity of 00:00:00 [facility] Meningococcal 2019-07-09 Completed University of Polysaccharide (groups 00:00:00 [place] [facility] A, C, Y and W-135) Branch conjugate vaccine (MCV4P) Meningococcal B, OMV 2019-07-09 Completed Univ ersity of 00:00:00 [facility] Meningococcal 2019-07-09 Completed University of Polysaccharide (groups 00:00:00 [place] [facility] A, C, Y and W-135) Branch conjugate vaccine (MCV4P) Meningococcal B, OMV 2019-07-09 Completed Univ ersity of 00:00:00 [facility] Meningococcal 2019-07-09 Completed University of Polysaccharide (groups 00:00:00 [place] [facility] A, C, Y and W-135) Branch conjugate vaccine (MCV4P) Meningococcal B, OMV 2019-07-09 Completed Univ ersity of 00:00:00 [facility] Meningococcal 2019-07-09 Completed University of Polysaccharide (groups 00:00:00 [place] [facility] A, C, Y and W-135) Branch conjugate vaccine (MCV4P) Meningococcal B, OMV 2019-07-09 Completed Univ ersity of 00:00:00 [facility] Meningococcal 2019-07-09 Completed University of Polysaccharide (groups 00:00:00 [place] [facility] A, C, Y and W-135) Branch conjugate vaccine (MCV4P) Meningococcal B, OMV 2019-07-09 Completed Univ ersity of 00:00:00 [facility] Meningococcal 2019-07-09 Completed University of Polysaccharide (groups 00:00:00 [place] [facility] A, C, Y and W-135) Branch conjugate vaccine (MCV4P) Meningococcal B, OMV 2019-07-09 Completed Univ ersity of 00:00:00 [facility] Meningococcal 2019-07-09 Completed University of Polysaccharide (groups 00:00:00 [place] [facility] A, C, Y and W-135) Branch conjugate vaccine (MCV4P) Meningococcal B, OMV 2019-07-09 Completed Univ ersity of 00:00:00 [facility] Meningococcal 2019-07-09 Completed University of Polysaccharide (groups 00:00:00 [place] [facility] A, C, Y and W-135) Branch conjugate vaccine (MCV4P) Meningococcal B, OMV 2019-07-09 Completed Univ ersity of 00:00:00 [facility] Meningococcal 2019-07-09 Completed University of Polysaccharide (groups 00:00:00 [place] [facility] A, C, Y and W-135) Branch conjugate vaccine (MCV4P) Meningococcal B, OMV 2019-07-09 Completed Univ ersity of 00:00:00 [facility] Meningococcal 2019-07-09 Completed University of Polysaccharide (groups 00:00:00 [place] [facility] A, C, Y and W-135) Branch conjugate vaccine (MCV4P) Meningococcal B, OMV 2019-07-09 Completed Univ ersity of 00:00:00 [facility] Meningococcal 2019-07-09 Completed University of Polysaccharide (groups 00:00:00 [place] [facility] A, C, Y and W-135) Branch conjugate vaccine (MCV4P) Meningococcal B, OMV 2019-07-09 Completed Univ ersity of 00:00:00 [facility] Meningococcal 2019-07-09 Completed University of Polysaccharide (groups 00:00:00 [place] [facility] A, C, Y and W-135) Branch conjugate vaccine (MCV4P) Meningococcal B, OMV 2019-07-09 Completed [facility] 00:00:00 [facility] Meningococcal 2019-07-09 Completed [facility] of Polysaccharide (groups 00:00:00 [facility], Y and W-135) Branch conjugate vaccine (MCV4P) Meningococcal B, OMV 2019-07-09 Completed [facility] 00:00:00 [facility] Meningococcal 2019-07-09 Completed [facility] Polysaccharide (groups 00:00:00 [facility] C, Y and W-135) Branch conjugate vaccine (MCV4P) Meningococcal B, OMV 2019-07-09 Completed [facility] 00:00:00 [facility] Meningococcal 2019-07-09 Completed [facility] Polysaccharide (groups 00:00:00 [facility], C, Y and W-135) Branch conjugate vaccine (MCV4P) Meningococcal B, OMV 2019-07-09 Completed [facility] 00:00:00 [facility] Meningococcal 2019-07-09 Completed [facility] Polysaccharide (groups 00:00:00 [facility], C, Y and W-135) Branch conjugate vaccine (MCV4P) Meningococcal B, OMV 2019-07-09 Completed [facility] 00:00:00 [facility] Meningococcal 2019-07-09 Completed [facility] Polysaccharide (groups 00:00:00 [facility], C, Y and W-135) Branch conjugate vaccine (MCV4P) Meningococcal B, OMV 2019-07-09 Completed [facility] 00:00:00 [facility] Meningococcal 2019-07-09 Completed [facility] Polysaccharide (groups 00:00:00 [facility] C, Y and W-135) Branch conjugate vaccine (MCV4P) Meningococcal B, OMV 2019-07-09 Completed [facility] 00:00:00 [facility] Meningococcal 2019-07-09 Completed [facility] Polysaccharide (groups 00:00:00 [facility], C, Y and W-135) Branch conjugate vaccine (MCV4P) Meningococcal B, OMV 2019-07-09 Completed [facility] 00:00:00 [facility] Meningococcal 2019-07-09 Completed [facility] Polysaccharide (groups 00:00:00 [facility], C, Y and W-135) Branch conjugate vaccine (MCV4P) Meningococcal B, OMV 2019-07-09 Completed [facility] 00:00:00 [facility] Meningococcal 2019-07-09 Completed [facility] Polysaccharide (groups 00:00:00 [facility], C, Y and W-135) Branch conjugate vaccine (MCV4P) Meningococcal B, OMV 2019-07-09 Completed [facility] 00:00:00 [facility] Meningococcal 2019-07-09 Completed [facility] Polysaccharide (groups 00:00:00 [facility], C, Y and W-135) Branch conjugate vaccine (MCV4P) Meningococcal B, OMV 2019-07-09 Completed [facility] 00:00:00 [facility] Meningococcal 2019-07-09 Completed [facility] Polysaccharide (groups 00:00:00 [facility], C, Y and W-135) Branch conjugate vaccine (MCV4P) Meningococcal B, OMV 2019-07-09 Completed [facility] 00:00:00 [facility] Meningococcal 2019-07-09 Completed [facility] Polysaccharide (groups 00:00:00 [facility], C, Y and W-135) Branch conjugate vaccine (MCV4P) Meningococcal B, OMV 2019-07-09 Completed [facility] 00:00:00 [facility] Meningococcal 2019-07-09 Completed [facility] Polysaccharide (groups 00:00:00 [facility], C, Y and W-135) Branch conjugate vaccine (MCV4P) Meningococcal B, OMV 2019-07-09 Completed [facility] 00:00:00 [facility] Meningococcal 2019-07-09 Completed [facility] Polysaccharide (groups 00:00:00 [facility], C, Y and W-135) Branch conjugate vaccine (MCV4P) Meningococcal B, OMV 2019-07-09 Completed [facility] 00:00:00 [facility] Meningococcal 2019-07-09 Completed [facility] Polysaccharide (groups 00:00:00 [facility], C, Y and W-135) Branch conjugate vaccine (MCV4P) Meningococcal B, OMV 2019-07-09 Completed [facility] 00:00:00 [facility] Meningococcal 2019-07-09 Completed [facility] Polysaccharide (groups 00:00:00 [facility], C, Y and W-135) Branch conjugate vaccine (MCV4P) Meningococcal B, OMV 2019-07-09 Completed [facility] 00:00:00 [facility] Meningococcal 2019-07-09 Completed [facility] Polysaccharide (groups 00:00:00 [facility], C, Y and W-135) Branch conjugate vaccine (MCV4P) Meningococcal B, OMV 2019-07-09 Completed [facility] 00:00:00 [facility] Meningococcal 2019-07-09 Completed [facility] Polysaccharide (groups 00:00:00 [facility], C, Y and W-135) Branch conjugate vaccine (MCV4P) Meningococcal B, OMV 2019-07-09 Completed [facility] 00:00:00 [facility] Meningococcal 2019-07-09 Completed [facility] Polysaccharide (groups 00:00:00 [facility], C, Y and W-135) Branch conjugate vaccine (MCV4P) Meningococcal B, OMV 2019-07-09 Completed [facility] 00:00:00 [facility] Meningococcal 2019-07-09 Completed [facility] Polysaccharide (groups 00:00:00 [facility], C, Y and W-135) Branch conjugate vaccine (MCV4P) Meningococcal B, OMV 2019-07-09 Completed [facility] 00:00:00 [facility] Meningococcal 2019-07-09 Completed [facility] Polysaccharide (groups 00:00:00 [facility], C, Y and W-135) Branch conjugate vaccine (MCV4P) Meningococcal B, OMV 2019-07-09 Completed [facility] 00:00:00 [facility] Meningococcal 2019-07-09 Completed [facility] Polysaccharide (groups 00:00:00 [facility], C, Y and W-135) Branch conjugate vaccine (MCV4P) Meningococcal B, OMV 2019-07-09 Completed [facility] 00:00:00 [facility] Meningococcal 2019-07-09 Completed [facility] Polysaccharide (groups 00:00:00 [facility], C, Y and W-135) Branch conjugate vaccine (MCV4P) Meningococcal B, OMV 2019-07-09 Completed [facility] 00:00:00 [facility] Meningococcal 2019-07-09 Completed [facility] Polysaccharide (groups 00:00:00 [facility], C, Y and W-135) Branch conjugate vaccine (MCV4P) Meningococcal B, OMV 2019-07-09 Completed [facility] 00:00:00 [facility] Meningococcal 2019-07-09 Completed [facility] Polysaccharide (groups 00:00:00 [facility], C, Y and W-135) Branch conjugate vaccine (MCV4P) Meningococcal B, OMV 2019-07-09 Completed [facility] 00:00:00 [facility] Meningococcal 2019-07-09 Completed [facility] Polysaccharide (groups 00:00:00 [facility], C, Y and W-135) Branch conjugate vaccine (MCV4P) Meningococcal B, OMV 2019-07-09 Completed [facility] 00:00:00 [facility] Meningococcal 2019-07-09 Completed [facility] Polysaccharide (groups 00:00:00 [facility], C, Y and W-135) Branch conjugate vaccine (MCV4P) Meningococcal B, OMV 2019-07-09 Completed [facility] 00:00:00 [facility] Meningococcal 2019-07-09 Completed [facility] Polysaccharide (groups 00:00:00 [facility], C, Y and W-135) Branch conjugate vaccine (MCV4P) Meningococcal B, OMV 2019-07-09 Completed [facility] 00:00:00 [facility] Meningococcal 2019-07-09 Completed [facility] Polysaccharide (groups 00:00:00 [facility], C, Y and W-135) Branch conjugate vaccine (MCV4P) Meningococcal B, OMV 2019-07-09 Completed [facility] 00:00:00 [facility] Meningococcal 2019-07-09 Completed [facility] Polysaccharide (groups 00:00:00 [facility], C, Y and W-135) Branch conjugate vaccine (MCV4P) Meningococcal B, OMV 2019-07-09 Completed [facility] 00:00:00 [facility] Meningococcal 2019-07-09 Completed [facility] Polysaccharide (groups 00:00:00 [facility], C, Y and W-135) Branch conjugate vaccine (MCV4P) Meningococcal B, OMV 2019-07-09 Completed [facility] 00:00:00 [facility] Meningococcal 2019-07-09 Completed [facility] Polysaccharide (groups 00:00:00 [facility], C, Y and W-135) Branch conjugate vaccine (MCV4P) Meningococcal B, OMV 2019-07-09 Completed [facility] 00:00:00 [facility] Meningococcal 2019-07-09 Completed [facility] Polysaccharide (groups 00:00:00 [facility], C, Y and W-135) Branch conjugate vaccine (MCV4P) Meningococcal B, OMV 2019-07-09 Completed [facility] 00:00:00 [facility] Meningococcal 2019-07-09 Completed [facility] Polysaccharide (groups 00:00:00 [facility], C, Y and W-135) Branch conjugate vaccine (MCV4P) Meningococcal B, OMV 2019-07-09 Completed [facility] 00:00:00 [facility] Meningococcal 2019-07-09 Completed [facility] Polysaccharide (groups 00:00:00 [facility], C, Y and W-135) Branch conjugate vaccine (MCV4P) Meningococcal B, OMV 2019-07-09 Completed [facility] 00:00:00 [facility] Meningococcal 2019-07-09 Completed [facility] Polysaccharide (groups 00:00:00 [facility], C, Y and W-135) Branch conjugate vaccine (MCV4P) Meningococcal B, OMV 2019-07-09 Completed [facility] 00:00:00 [facility] Meningococcal 2019-07-09 Completed [facility] Polysaccharide (groups 00:00:00 [facility], C, Y and W-135) Branch conjugate vaccine (MCV4P) Meningococcal B, OMV 2019-07-09 Completed [facility] 00:00:00 [facility] Meningococcal 2019-07-09 Completed [facility] Polysaccharide (groups 00:00:00 [facility], C, Y and W-135) Branch conjugate vaccine (MCV4P) Meningococcal B, OMV 2019-07-09 Completed [facility] 00:00:00 [facility] Meningococcal 2019-07-09 Completed [facility] Polysaccharide (groups 00:00:00 [facility], C, Y and W-135) Branch conjugate vaccine (MCV4P) Meningococcal B, OMV 2019-07-09 Completed [facility] 00:00:00 [facility] Meningococcal 2019-07-09 Completed [facility] Polysaccharide (groups 00:00:00 [facility], C, Y and W-135) Branch conjugate vaccine (MCV4P) Meningococcal B, OMV 2019-07-09 Completed [facility] 00:00:00 [facility] Meningococcal 2019-07-09 Completed [facility] Polysaccharide (groups 00:00:00 [facility], C, Y and W-135) Branch conjugate vaccine (MCV4P) Meningococcal B, OMV 2019-07-09 Completed [facility] 00:00:00 [facility] Meningococcal 2019-07-09 Completed [facility] Polysaccharide (groups 00:00:00 [facility], C, Y and W-135) Branch conjugate vaccine (MCV4P) Meningococcal B, OMV 2019-07-09 Completed [facility] 00:00:00 [facility] Meningococcal 2019-07-09 Completed [facility] Polysaccharide (groups 00:00:00 [facility], C, Y and W-135) Branch conjugate vaccine (MCV4P) Meningococcal B, OMV 2019-07-09 Completed [facility] 00:00:00 [facility] Meningococcal 2019-07-09 Completed [facility] Polysaccharide (groups 00:00:00 [facility], C, Y and W-135) Branch conjugate vaccine (MCV4P) Meningococcal B, OMV 2019-07-09 Completed [facility] 00:00:00 [facility] Meningococcal 2019-07-09 Completed [facility] Polysaccharide (groups 00:00:00 [facility], C, Y and W-135) Branch conjugate vaccine (MCV4P) Meningococcal B, OMV 2019-07-09 Completed [facility] 00:00:00 [facility] Meningococcal 2019-07-09 Completed [facility] Polysaccharide (groups 00:00:00 [facility], C, Y and W-135) Branch conjugate vaccine (MCV4P) Meningococcal B, OMV 2019-07-09 Completed [facility] 00:00:00 [facility] Meningococcal 2019-07-09 Completed [facility] Polysaccharide (groups 00:00:00 [facility], C, Y and W-135) Branch conjugate vaccine (MCV4P) Meningococcal B, OMV 2019-07-09 Completed [facility] 00:00:00 [facility] Meningococcal 2019-07-09 Completed [facility] Polysaccharide (groups 00:00:00 [facility], C, Y and W-135) Branch conjugate vaccine (MCV4P) Meningococcal B, OMV 2019-07-09 Completed [facility] 00:00:00 [facility] Meningococcal 2019-07-09 Completed [facility] Polysaccharide (groups 00:00:00 [facility], C, Y and W-135) Branch conjugate vaccine (MCV4P) Meningococcal B, OMV 2019-07-09 Completed [facility] 00:00:00 [facility] Meningococcal 2019-07-09 Completed [facility] Polysaccharide (groups 00:00:00 [facility], C, Y and W-135) Branch conjugate vaccine (MCV4P) Meningococcal B, OMV 2019-07-09 Completed [facility] 00:00:00 [facility] Meningococcal 2019-07-09 Completed [facility] Polysaccharide (groups 00:00:00 [facility], C, Y and W-135) Branch conjugate vaccine (MCV4P) Meningococcal B, OMV 2019-07-09 Completed [facility] 00:00:00 [facility] Meningococcal 2019-07-09 Completed [facility] Polysaccharide (groups 00:00:00 [facility], C, Y and W-135) Branch conjugate vaccine (MCV4P) Meningococcal B, OMV 2019-07-09 Completed [facility] 00:00:00 [facility] Meningococcal 2019-07-09 Completed [facility] Polysaccharide (groups 00:00:00 [facility], C, Y and W-135) Branch conjugate vaccine (MCV4P) Meningococcal 2019-07-09 Completed [facility] Polysaccharide (groups 00:00:00 [facility], C, Y and W-135) Branch conjugate vaccine (MCV4P) Meningococcal B, OMV 2019-07-09 Completed [facility] 00:00:00 [facility] Meningococcal B, OMV 2019-07-09 Completed [facility] 00:00:00 [facility] Meningococcal 2019-07-09 Completed [facility] Polysaccharide (groups 00:00:00 [facility], C, Y and W-135) Branch conjugate vaccine (MCV4P) Meningococcal B, OMV 2019-07-09 Completed [facility] 00:00:00 [facility] Meningococcal 2019-07-09 Completed [facility] Polysaccharide (groups 00:00:00 [facility], C, Y and W-135) Branch conjugate vaccine (MCV4P) Meningococcal B, OMV 2019-07-09 Completed [facility] 00:00:00 [facility] Meningococcal 2019-07-09 Completed [facility] Polysaccharide (groups 00:00:00 [facility], C, Y and W-135) Branch conjugate vaccine (MCV4P) Meningococcal B, OMV 2019-07-09 Completed [facility] 00:00:00 [facility] Meningococcal 2019-07-09 Completed [facility] Polysaccharide (groups 00:00:00 [facility], C, Y and W-135) Branch conjugate vaccine (MCV4P) Meningococcal B, OMV 2019-07-09 Completed [facility] 00:00:00 [facility] Meningococcal 2019-07-09 Completed [facility] Polysaccharide (groups 00:00:00 [facility], C, Y and W-135) Branch conjugate vaccine (MCV4P) Meningococcal B, OMV 2019-07-09 Completed [facility] 00:00:00 [facility] Meningococcal 2019-07-09 Completed [facility] Polysaccharide (groups 00:00:00 [facility], C, Y and W-135) Branch conjugate vaccine (MCV4P) Meningococcal B, OMV 2019-07-09 Completed [facility] 00:00:00 [facility] Meningococcal 2019-07-09 Completed [facility] Polysaccharide (groups 00:00:00 [facility], C, Y and W-135) Branch conjugate vaccine (MCV4P) Meningococcal B, OMV 2019-07-09 Completed [facility] 00:00:00 [facility] Meningococcal 2019-07-09 Completed [facility] Polysaccharide (groups 00:00:00 [facility], C, Y and W-135) Branch conjugate vaccine (MCV4P) Meningococcal B, OMV 2019-07-09 Completed [facility] 00:00:00 [facility] Meningococcal 2019-07-09 Completed [facility] Polysaccharide (groups 00:00:00 [facility], C, Y and W-135) Branch conjugate vaccine (MCV4P) Meningococcal B, OMV 2019-07-09 Completed [facility] 00:00:00 [facility] Meningococcal 2019-07-09 Completed [facility] Polysaccharide (groups 00:00:00 [facility], C, Y and W-135) Branch conjugate vaccine (MCV4P) Meningococcal B, OMV 2019-07-09 Completed [facility] 00:00:00 [facility] Meningococcal 2019-07-09 Completed [facility] Polysaccharide (groups 00:00:00 [facility], C, Y and W-135) Branch conjugate vaccine (MCV4P) Meningococcal B, OMV 2019-07-09 Completed [facility] 00:00:00 [facility] Meningococcal 2019-07-09 Completed [facility] Polysaccharide (groups 00:00:00 [facility], C, Y and W-135) Branch conjugate vaccine (MCV4P) Meningococcal B, OMV 2019-07-09 Completed [facility] 00:00:00 [facility] Meningococcal 2019-07-09 Completed [facility] Polysaccharide (groups 00:00:00 [facility], C, Y and W-135) Branch conjugate vaccine (MCV4P) Meningococcal B, OMV 2019-07-09 Completed [facility] 00:00:00 [facility] Influenza Virus 2018-08-28 Completed [facility] [...] 00:00:00 [facility] Influenza Virus [...] Branch HPV9 2018-07-18 Completed [facility] of 00:00:00 [facility] HPV9 2018-07-18 Completed University of 00:00:00 [facility] HPV9 2018-07-18 Completed [facility] of 00:00:00 [facility] HPV9 2018-07-18 Completed [facility] of 00:00:00 [facility] HPV9 2018-07-18 Completed [facility] of 00:00:00 [facility] HPV9 2018-07-18 Completed [facility] of 00:00:00 [facility] HPV9 2018-07-18 Completed [facility] of 00:00:00 [facility] HPV9 2018-07-18 Completed University of 00:00:00 [facility] HPV9 2018-07-18 Completed [facility] of 00:00:00 [facility] HPV9 2018-07-18 Completed [facility] of 00:00:00 [facility] HPV9 2018-07-18 Completed [facility] of 00:00:00 [facility] HPV9 2018-07-18 Completed [facility] of 00:00:00 [facility] HPV9 2018-07-18 Completed [facility] of 00:00:00 [facility] HPV9 2018-07-18 Completed [facility] of 00:00:00 [facility] HPV9 2018-07-18 Completed [facility] of 00:00:00 [facility] HPV9 2018-07-18 Completed [facility] of 00:00:00 [facility] HPV9 2018-07-18 Completed [facility] 00:00:00 [facility] HPV9 2018-07-18 Completed University of 00:00:00 [facility] HPV9 2018-07-18 Completed University of 00:00:00 [facility] HPV9 2018-07-18 Completed University of 00:00:00 [facility] HPV9 2018-07-18 Completed [facility] of 00:00:00 [facility] HPV9 2018-07-18 Completed [facility] of 00:00:00 [facility] HPV9 2018-07-18 Completed [facility] of 00:00:00 [facility] HPV9 2018-07-18 Completed [facility] of 00:00:00 [facility] HPV9 2018-07-18 Completed [facility] of 00:00:00 [facility] HPV9 2018-07-18 Completed [facility] of 00:00:00 [facility] HPV9 2018-07-18 Completed [facility] of 00:00:00 [facility] HPV9 2018-07-18 Completed [facility] of 00:00:00 [facility] HPV9 2018-07-18 Completed [facility] of 00:00:00 [facility] HPV9 2018-07-18 Completed [facility] of 00:00:00 [facility] HPV9 2018-07-18 Completed [facility] of 00:00:00 [facility] HPV9 2018-07-18 Completed [facility] of 00:00:00 [facility] HPV9 2018-07-18 Completed [facility] of 00:00:00 [facility] HPV9 2018-07-18 Completed [facility] of 00:00:00 [facility] HPV9 2018-07-18 Completed [facility] of 00:00:00 [facility] HPV9 2018-07-18 Completed [facility] of 00:00:00 [facility] HPV9 2018-07-18 Completed [facility] of 00:00:00 [facility] HPV9 2018-07-18 Completed [facility] of 00:00:00 [facility] HPV9 2018-07-18 Completed [facility] of 00:00:00 [facility] HPV9 2018-07-18 Completed [facility] of 00:00:00 [facility] HPV9 2018-07-18 Completed [facility] of 00:00:00 [facility] HPV9 2018-07-18 Completed [facility] of 00:00:00 [facility] HPV9 2018-07-18 Completed [facility] of 00:00:00 [facility] HPV9 2018-07-18 Completed [facility] of 00:00:00 [facility] HPV9 2018-07-18 Completed [facility] of 00:00:00 [facility] HPV9 2018-07-18 Completed [facility] of 00:00:00 [facility] HPV9 2018-07-18 Completed [facility] of 00:00:00 [facility] HPV9 2018-07-18 Completed [facility] of 00:00:00 [facility] HPV9 2018-07-18 Completed [facility] of 00:00:00 [facility] HPV9 2018-07-18 Completed [facility] of 00:00:00 [facility] HPV9 2018-07-18 Completed [facility] of 00:00:00 [facility] HPV9 2018-07-18 Completed [facility] of 00:00:00 [facility] HPV9 2018-07-18 Completed [facility] of 00:00:00 [facility] HPV9 2018-07-18 Completed [facility] of 00:00:00 [facility] HPV9 2018-07-18 Completed [facility] of 00:00:00 [facility] HPV9 2018-07-18 Completed [facility] of 00:00:00 [facility] HPV9 2018-07-18 Completed [facility] of 00:00:00 [facility] HPV9 2018-07-18 Completed [facility] of 00:00:00 [facility] HPV9 2018-07-18 Completed [facility] of 00:00:00 [facility] HPV9 2018-07-18 Completed [facility] of 00:00:00 [facility] HPV9 2018-07-18 Completed [facility] of 00:00:00 [facility] HPV9 2018-07-18 Completed [facility] of 00:00:00 [facility] HPV9 2018-07-18 Completed [facility] of 00:00:00 [facility] HPV9 2018-07-18 Completed [facility] of 00:00:00 [facility] HPV9 2018-07-18 Completed [facility] of 00:00:00 [facility] HPV9 2018-07-18 Completed [facility] of 00:00:00 [facility] HPV9 2018-07-18 Completed [facility] of 00:00:00 [facility] HPV9 2018-07-18 Completed [facility] of 00:00:00 [facility] HPV9 2018-07-18 Completed [facility] of 00:00:00 [facility] HPV9 2018-07-18 Completed [facility] of 00:00:00 [facility] HPV9 2018-07-18 Completed [facility] of 00:00:00 [facility] HPV9 2018-07-18 Completed [facility] of 00:00:00 [facility] HPV9 2018-07-18 Completed [facility] of 00:00:00 [facility] HPV9 2018-07-18 Completed [facility] of 00:00:00 [facility] HPV9 2018-07-18 Completed [facility] of 00:00:00 [facility] HPV9 2018-07-18 Completed [facility] of 00:00:00 [facility] HPV9 2018-07-18 Completed [facility] of 00:00:00 [facility] HPV9 2018-07-18 Completed [facility] of 00:00:00 [facility] HPV9 2018-07-18 Completed [facility] of 00:00:00 [facility] HPV9 2018-07-18 Completed [facility] of 00:00:00 [facility] HPV9 2018-07-18 Completed [facility] of 00:00:00 [facility] HPV9 2018-07-18 Completed [facility] of 00:00:00 [facility] HPV9 2018-07-18 Completed [facility] of 00:00:00 [facility] HPV9 2018-07-18 Completed [facility] of 00:00:00 [facility] HPV9 2018-07-18 Completed [facility] of 00:00:00 [facility] HPV9 2018-07-18 Completed [facility] of 00:00:00 [facility] HPV9 2018-07-18 Completed University of 00:00:00 [facility] HPV9 2018-07-18 Completed [facility] 00:00:00 [facility] HPV9 2018-07-18 Completed [facility] 00:00:00 [facility] HPV9 2018-01-03 Completed [facility] 00:00:00 [facility] HPV9 2018-01-03 Completed [facility] 00:00:00 [facility] HPV9 2018-01-03 Completed [facility] 00:00:00 [facility] HPV9 2018-01-03 Completed [facility] 00:00:00 [facility] HPV9 2018-01-03 Completed [facility] 00:00:00 [facility] HPV9 2018-01-03 Completed [facility] 00:00:00 [facility] HPV9 2018-01-03 Completed [facility] 00:00:00 [facility] HPV9 2018-01-03 Completed [facility] 00:00:00 [facility] HPV9 2018-01-03 Completed [facility] 00:00:00 [facility] HPV9 2018-01-03 Completed [facility] 00:00:00 [facility] HPV9 2018-01-03 Completed [facility] 00:00:00 [facility] HPV9 2018-01-03 Completed [facility] of [...] Branch HPV9 2018-01-03 Completed [facility] 00:00:00 [facility] HPV9 2018-01-03 Completed [facility] 00:00:00 [facility] HPV9 2018-01-03 Completed [facility] 00[facility]00:00 [facility] HPV9 2018-01-03 Completed [facility] 00:00:00 [facility] HPV9 2018-01-03 Completed [facility] 00:00:00 [facility] HPV9 2018-01-03 Completed [facility] 00:00:00 [facility] HPV9 2018-01-03 Completed [facility] 00:00:00 [facility] HPV9 2018-01-03 Completed [facility] 00:00:00 [facility] HPV9 2018-01-03 Completed [facility] 00:00:00 [facility] HPV9 2018-01-03 Completed [facility] 00:00:00 [facility] HPV9 2018-01-03 Completed [facility] 00:00:00 [facility] HPV9 2018-01-03 Completed [facility] 00:00:00 [facility] HPV9 2018-01-03 Completed [facility] 00:00:00 [facility] HPV9 2018-01-03 Completed [facility] 00:00:00 [facility] HPV9 2018-01-03 Completed [facility] 00:00:00 [facility] HPV9 2018-01-03 Completed [facility] 00:00:00 [facility] HPV9 2018-01-03 Completed [facility] 00:00:00 [facility] HPV9 2018-01-03 Completed [facility] 00:00:00 [facility] HPV9 2018-01-03 Completed [facility] 00:00:00 [facility] HPV9 2018-01-03 Completed [facility] 00:00:00 [facility] HPV9 2018-01-03 Completed [facility] 00:00:00 [facility] HPV9 2018-01-03 Completed [facility] 00:00:00 [facility] HPV9 2018-01-03 Completed [facility] 00:00:00 [facility] HPV9 2018-01-03 Completed [facility] 00:00:00 [facility] HPV9 2018-01-03 Completed [facility] 00:00:00 [facility] HPV9 2018-01-03 Completed [facility] 00:00:00 [facility] HPV9 2018-01-03 Completed [facility] 00:00:00 [facility] HPV9 2018-01-03 Completed [facility] 00:00:00 [facility] HPV9 2018-01-03 Completed [facility] 00:00:00 [facility] HPV9 2018-01-03 Completed [facility] 00:00:00 [facility] HPV9 2018-01-03 Completed [facility] 00:00:00 [facility] HPV9 2018-01-03 Completed [facility] 00:00:00 [facility] HPV9 2018-01-03 Completed [facility] 00:00:00 [facility] HPV9 2018-01-03 Completed [facility] 00:00:00 [facility] HPV9 2018-01-03 Completed [facility] 00:00:00 [facility] HPV9 2018-01-03 Completed [facility] 00:00:00 [facility] HPV9 2018-01-03 Completed [facility] 00:00:00 [facility] HPV9 2018-01-03 Completed [facility] 00:00:00 [facility] HPV9 2018-01-03 Completed [facility] 00:00:00 [facility] HPV9 2018-01-03 Completed [facility] 00:00:00 [facility] HPV9 2018-01-03 Completed [facility] 00:00:00 [facility] HPV9 2018-01-03 Completed [facility] 00:00:00 [facility] HPV9 2018-01-03 Completed [facility] 00:00:00 [facility] HPV9 2018-01-03 Completed [facility] 00:00:00 [facility] HPV9 2018-01-03 Completed [facility] 00:00:00 [facility] HPV9 2018-01-03 Completed [facility] 00:00:00 [facility] HPV9 2018-01-03 Completed [facility] 00:00:00 [facility] Influenza Virus 2015-11-11 Completed [facility]it y [facility] IM 3+ YRS 00[facility]00:00 [facility] Influenza Virus 2015-11-11 Completed [facility]it y of [facility] IM 3+ YRS 00:00:00 [facility] Influenza Virus 2015-11-11 Completed [facility]it y of [facility] IM 3+ YRS 00:00:00 [facility] Influenza Virus 2015-11-11 Completed [facility] y of [facility] IM 3+ YRS 00:00:00 [facility] Influenza Virus 2015-11-11 Completed [facility] y of [facility] IM 3+ YRS 00:00:00 [facility] Influenza Virus 2015-11-11 Completed [facility] y of [facility] IM 3+ YRS 00:00:00 [facility] Influenza Virus 2015-11-11 Completed [facility] y of [facility] IM 3+ YRS 00:00:00 [facility] Influenza Virus 2015-11-11 Completed [facility] y of [facility] IM 3+ YRS 00:00:00 [facility] Influenza Virus 2015-11-11 Completed [facility] y of [facility] IM 3+ YRS 00:00:00 [facility] Influenza Virus 2015-11-11 Completed [facility] y of [facility] IM 3+ YRS 00:00:00 [facility] Influenza Virus 2015-11-11 Completed [facility] y of [facility] IM 3+ YRS 00:00:00 [facility] Influenza Virus 2015-11-11 Completed [facility] y of [facility] IM 3+ YRS 00:00:00 [facility] Influenza Virus 2015-11-11 Completed [facility] y of [facility] IM 3+ YRS 00:00:00 [facility] Influenza Virus 2015-11-11 Completed [facility] y of [facility] IM 3+ YRS 00:00:00 [facility] Influenza Virus 2015-11-11 Completed [facility] y of [facility] IM 3+ YRS 00:00:00 [facility] Influenza Virus 2015-11-11 Completed [facility] y of [facility] IM 3+ YRS 00:00:00 [facility] Influenza Virus 2015-11-11 Completed [facility] y of [facility] IM 3+ YRS 00:00:00 [facility] Influenza Virus 2015-11-11 Completed [facility] y of [facility] IM 3+ YRS 00:00:00 [facility] Influenza Virus 2015-11-11 Completed [facility] of [facility] IM 3+ YRS 00:00:00 [facility] Influenza Virus 2015-11-11 Completed [facility] y of [facility] IM 3+ YRS 00:00:00 [facility] Influenza Virus 2015-11-11 Completed [facility] y of [facility] IM 3+ YRS 00:00:00 [facility] Influenza Virus 2015-11-11 Completed [facility] of Vaccine Quad IM 3+ YRS 00:00:00 [facility] Influenza Virus 2015-11-11 Completed [facility] y of Vaccine Quad IM 3+ YRS 00:00:00 [facility] Influenza Virus 2015-11-11 Completed [facility] y of [facility] IM 3+ YRS 00:00:00 [facility] Influenza Virus 2015-11-11 Completed [facility] of [facility] IM 3+ YRS 00:00:00 [facility] Influenza Virus 2015-11-11 Completed [facility] y of [facility] IM 3+ YRS 00:00:00 [facility] Influenza Virus 2015-11-11 Completed [facility] of [facility] IM 3+ YRS 00:00:00 [facility] Influenza Virus 2015-11-11 Completed [facility] of [facility] IM 3+ YRS 00:00:00 [facility] Influenza Virus 2015-11-11 Completed [facility] of [facility] IM 3+ YRS 00:00:00 [facility] Influenza Virus 2015-11-11 Completed [facility] of [facility] IM 3+ YRS 00:00:00 [facility] Influenza Virus 2015-11-11 Completed [facility] of [facility] IM 3+ YRS 00:00:00 [facility] Influenza Virus 2015-11-11 Completed [facility] of [facility] IM 3+ YRS 00:00:00 [facility] Influenza Virus 2015-11-11 Completed [facility] of [facility] IM 3+ YRS 00:00:00 [facility] Influenza Virus 2015-11-11 Completed [facility] of [facility] IM 3+ YRS 00:00:00 [facility] Influenza Virus 2015-11-11 Completed [facility] of [facility] IM 3+ YRS 00:00:00 [facility] Influenza Virus 2015-11-11 Completed [facility] of [facility] IM 3+ YRS 00:00:00 [facility] Influenza Virus 2015-11-11 Completed [facility] of Vaccine Quad IM 3+ YRS 00:00:00 [facility] Influenza Virus 2015-11-11 Completed [facility] y of Vaccine Quad IM 3+ YRS 00:00:00 [facility] Influenza Virus 2015-11-11 Completed [facility] y of Vaccine [facility] IM 3+ YRS 00:00:00 [facility] Influenza Virus 2015-11-11 Completed [facility] y of Vacc[facility] IM 3+ YRS 00:00:00 [facility] Influenza Virus 2015-11-11 Completed [facility] y of [facility] IM 3+ YRS 00:00:00 [facility] Influenza Virus 2015-11-11 Completed [facility] of Vaccine [facility] IM 3+ YRS 00:00:00 [facility] Influenza Virus 2015-11-11 Completed [facility] of Vaccine [facility] IM 3+ YRS 00:00:00 [facility] Influenza Virus 2015-11-11 Completed [facility] y of Vaccine [facility] IM 3+ YRS 00:00:00 [facility] Influenza Virus 2015-11-11 Completed [facility] of [facility] IM 3+ YRS 00:00:00 [facility] Influenza Virus 2015-11-11 Completed [facility] of Vaccine [facility] IM 3+ YRS 00:00:00 [facility] Influenza Virus 2015-11-11 Completed [facility] of Vaccine [facility] IM 3+ YRS 00:00:00 [facility] Influenza Virus 2015-11-11 Completed [facility] of Vacc[facility] IM 3+ YRS 00:00:00 [facility] Influenza Virus 2015-11-11 Completed [facility] of Vaccine [facility] IM 3+ YRS 00:00:00 [facility] Influenza Virus 2015-11-11 Completed [facility] of [facility]ine [facility] IM 3+ YRS 00:00:00 [facility] Influenza Virus 2015-11-11 Completed [facility] of Vaccine [facility] IM 3+ YRS 00:00:00 [facility] Influenza Virus 2015-11-11 Completed [facility] y of Vaccine Quad IM 3+ YRS 00:00:00 [facility] Influenza Virus 2015-11-11 Completed [facility] y of Vaccine [facility] IM 3+ YRS 00:00:00 [facility] Influenza Virus 2015-11-11 Completed [facility] y of Vaccine [facility] IM 3+ YRS 00:00:00 [facility] Influenza Virus 2015-11-11 Completed [facility] of Vaccine [facility] IM 3+ YRS 00:00:00 [facility] Influenza Virus 2015-11-11 Completed [facility] of Vaccine [facility] IM 3+ YRS 00:00:00 [facility] Influenza Virus 2015-11-11 Completed [facility] y of Vaccine Quad IM 3+ YRS 00:00:00 [facility] Influenza Virus 2015-11-11 Completed [facility] of Vaccine Quad IM 3+ YRS 00:00:00 [facility] Influenza Virus 2015-11-11 Completed [facility] y of Vaccine Quad IM 3+ YRS 00:00:00 [facility] Influenza Virus 2015-11-11 Completed [facility] of Vaccine Quad IM 3+ YRS 00:00:00 [facility] Influenza Virus 2015-11-11 Completed [facility] of Vaccine Quad IM 3+ YRS 00:00:00 [facility] Influenza Virus 2015-11-11 Completed [facility] y of Vaccine Quad IM 3+ YRS 00:00:00 [facility] Influenza Virus 2015-11-11 Completed [facility] of Vaccine [facility] IM 3+ YRS 00:00:00 [facility] Influenza Virus 2015-11-11 Completed [facility] y of Vaccine [facility] IM 3+ YRS 00:00:00 [facility] Influenza Virus 2015-11-11 Completed [facility] y of Vaccine Quad IM 3+ YRS 00:00:00 [facility] Influenza Virus 2015-11-11 Completed [facility] of Vaccine [facility] IM 3+ YRS 00:00:00 [facility] Influenza Virus 2015-11-11 Completed [facility] y of Vaccine Quad IM 3+ YRS 00:00:00 [facility] Influenza Virus 2015-11-11 Completed [facility] of [facility] IM 3+ YRS 00:00:00 [facility] Influenza Virus 2015-11-11 Completed [facility] of [facility] IM 3+ YRS 00:00:00 [facility] Influenza Virus 2015-11-11 Completed [facility] of [facility]ine [facility] IM 3+ YRS 00:00:00 [facility] Influenza Virus 2015-11-11 Completed [facility] of Vaccine [facility] IM 3+ YRS 00:00:00 [facility] Influenza Virus 2015-11-11 Completed [facility] of Vaccine [facility] IM 3+ YRS 00:00:00 [facility] Influenza Virus 2015-11-11 Completed [facility] y of [facility] IM 3+ YRS 00:00:00 [facility] Influenza Virus 2015-11-11 Completed [facility] of [facility]ine [facility] IM 3+ YRS 00:00:00 [facility] Influenza Virus 2015-11-11 Completed [facility] of Vaccine [facility] IM 3+ YRS 00:00:00 [facility] Influenza Virus 2015-11-11 Completed [facility] of Vaccine [facility] IM 3+ YRS 00:00:00 [facility] Influenza Virus 2015-11-11 Completed [facility] of Vaccine Quad IM 3+ YRS 00:00:00 [facility] Influenza Virus 2015-11-11 Completed [facility] of Vaccine [facility] IM 3+ YRS 00:00:00 [facility] Influenza Virus 2015-11-11 Completed [facility] of Vaccine [facility] IM 3+ YRS 00:00:00 [facility] Influenza Virus 2015-11-11 Completed [facility] of Vaccine Quad IM 3+ YRS 00:00:00 [facility] Influenza Virus 2015-11-11 Completed [facility] of Vaccine Quad IM 3+ YRS 00:00:00 [facility] Influenza Virus 2015-11-11 Completed [facility] of Vaccine [facility] IM 3+ YRS 00:00:00 [facility] Influenza Virus 2015-11-11 Completed [facility] of Vaccine [facility] IM 3+ YRS 00:00:00 [facility] Influenza Virus 2015-11-11 Completed [facility] Vaccine [facility] IM 3+ YRS 00:00:00 [facility] Influenza Virus 2015-11-11 Completed [facility] of Vaccine Quad IM 3+ YRS 00:00:00 [facility] Influenza Virus 2015-11-11 Completed [facility] Vaccine Quad IM 3+ YRS 00:00:00 [facility] Influenza Virus 2015-11-11 Completed [facility] of Vaccine [facility] IM 3+ YRS 00:00:00 [facility] Influenza Virus 2015-11-11 Completed [facility] of [facility] IM 3+ YRS 00:00:00 [facility] Influenza Virus 2015-11-11 Completed [facility] IM 3+ YRS 00:00:00 [facility] Tdap 2014-11-11 Completed University 00:00:00 [facility] Meningococcal 2014-11-11 Completed [facility] 00:00:00 [facility] ical (groups A, C, Y and Branc h W-135) conjugate vaccine (MCV4O) Influenza Virus 2014-11-11 Completed Universit y of Vaccine Quad IM 3+ YRS 00:00:00 [facility] Tdap 2014-11-11 Completed [facility] 00:00:00 [facility] Meningococcal 2014-11-11 Completed [facility] Oligosaccharide 00:00:00 [place] [facility] (groups A, C, Y and Branc h W-135) conjugate vaccine (MCV4O) Influenza Virus 2014-11-11 Completed [facility]it [facility] of Vaccine Quad IM 3+ YRS 00:00:00 [facility] Tdap 2014-11-11 Completed [facility] 00:00:00 [facility] Meningococcal 2014-11-11 Completed [facility] Oligosaccharide 00:00:00 [place] [facility] (groups A, C, Y and Branc h W-135) conjugate vaccine (MCV4O) Influenza Virus 2014-11-11 Completed [facility] of Vaccine Quad IM 3+ YRS 00:00:00 [facility] Tdap 2014-11-11 Completed [facility] 00:00:00 [facility] Meningococcal 2014-11-11 Completed [facility] Oligosaccharide 00:00:00 [place] [facility] (groups A, C, Y and Branc h W-135) conjugate vaccine (MCV4O) Influenza Virus 2014-11-11 Completed [facility] of Vaccine Quad IM 3+ YRS 00:00:00 [facility] Tdap 2014-11-11 Completed [facility] 00:00:00 [facility] Meningococcal 2014-11-11 Completed [facility] Oligosaccharide 00:00:00 [facility] (groups A, C, Y and Branc h W-135) conjugate vaccine (MCV4O) Influenza Virus 2014-11-11 Completed [facility] of Vaccine Quad IM 3+ YRS 00:00:00 [facility] Tdap 2014-11-11 Completed [facility] 00:00:00 [facility] Meningococcal 2014-11-11 Completed [facility] Oligosaccharide 00:00:00 [facility] (groups A, C, Y and Branc h W-135) conjugate vaccine (MCV4O) Influenza Virus 2014-11-11 Completed [facility] Vacc[facility] IM 3+ YRS 00:00:00 [facility] Tdap 2014-11-11 Completed [facility] 00:00:00 [facility] Meningococcal 2014-11-11 Completed [facility] Oligosaccharide 00:00:00 [facility] (groups A, C, Y and Branc h W-135) conjugate vaccine (MCV4O) Tdap 2014-11-11 Completed [facility] 00:00:00 [facility] Meningococcal 2014-11-11 Completed [facility] Oligosaccharide 00:00:00 [place] [facility] (groups A, C, Y and Branc h W-135) conjugate vaccine (MCV4O) Influenza Virus 2014-11-11 Completed [facility] Vacc[facility] IM 3+ YRS 00:00:00 [facility] Influenza Virus 2014-11-11 Completed [facility] y of Vaccine Quad IM 3+ YRS 00:00:00 [facility] Tdap 2014-11-11 Completed [facility] 00:00:00 [facility] Meningococcal 2014-11-11 Completed [facility] Oligosaccharide 00:00:00 [facility] (groups A, C, Y and Branc h W-135) conjugate vaccine (MCV4O) Influenza Virus 2014-11-11 Completed [facility] of Vaccine Quad IM 3+ YRS 00:00:00 [facility] Tdap 2014-11-11 Completed [facility] 00:00:00 [facility] Meningococcal 2014-11-11 Completed [facility] Oligosaccharide 00:00:00 [place] [facility] (groups A, C, Y and Branc h W-135) conjugate vaccine (MCV4O) Influenza Virus 2014-11-11 Completed [facility] Vaccine Quad IM 3+ YRS 00:00:00 [facility] Tdap 2014-11-11 Completed [facility] 00:00:00 [facility] Meningococcal 2014-11-11 Completed [facility] Oligosaccharide 00:00:00 [place] [facility] (groups A, C, Y and Branc h W-135) conjugate vaccine (MCV4O) Influenza Virus 2014-11-11 Completed [facility] Vacc[facility] IM 3+ YRS 00:00:00 [facility] TDAP 2014-11-11 Completed [facility] 00:00:00 [facility] Meningococcal 2014-11-11 Completed [facility] Oligosaccharide 00:00:00 [place] [facility] (groups A, C, Y and Branc h W-135) conjugate vaccine (MCV4O) Influenza Virus 2014-11-11 Completed [facility] of Vacc[facility] Quad IM 3+ YRS 00:00:00 [facility] TDAP 2014-11-11 Completed [facility] 00:00:00 [facility] Meningococcal 2014-11-11 Completed [facility] Oligosaccharide 00:00:00 [place] [facility] (groups A, C, Y and Branc h W-135) conjugate vaccine (MCV4O) Influenza Virus 2014-11-11 Completed [facility] Vacc[facility] IM 3+ YRS 00:00:00 [facility] TDAP 2014-11-11 Completed [facility] 00:00:00 [facility] Meningococcal 2014-11-11 Completed [facility] Oligosaccharide 00:00:00 [place] [facility] (groups A, C, Y and Branc h W-135) conjugate vaccine (MCV4O) Influenza Virus 2014-11-11 Completed [facility] Vacc[facility] IM 3+ YRS 00:00:00 [facility] TDAP 2014-11-11 Completed [facility] 00:00:00 [facility] Meningococcal 2014-11-11 Completed [facility] Oligosaccharide 00:00:00 [facility] (groups A, C, Y and Branc h W-135) conjugate vaccine (MCV4O) Influenza Virus 2014-11-11 Completed [facility] of Vaccine Quad IM 3+ YRS 00:00:00 [facility] TDAP 2014-11-11 Completed [facility] 00:00:00 [facility] Meningococcal 2014-11-11 Completed [facility] Oligosaccharide 00:00:00 [place] [facility] (groups A, C, Y and Branc h W-135) conjugate vaccine (MCV4O) Influenza Virus 2014-11-11 Completed [facility] of Vaccine Quad IM 3+ YRS 00:00:00 [facility] Tdap 2014-11-11 Completed [facility] 00:00:00 [facility] Meningococcal 2014-11-11 Completed [facility] Oligosaccharide 00:00:00 [place] [facility] (groups A, C, Y and Branc h W-135) conjugate vaccine (MCV4O) Influenza Virus 2014-11-11 Completed [facility]it y of Vaccine Quad IM 3+ YRS 00:00:00 [facility] TDAP 2014-11-11 Completed [facility] 00:00:00 [facility] Meningococcal 2014-11-11 Completed [facility] Oligosaccharide 00:00:00 [place] [facility] (groups A, C, Y and Branc h W-135) conjugate vaccine (MCV4O) Influenza Virus 2014-11-11 Completed [facility] Vaccine Quad IM 3+ YRS 00:00:00 [facility] TDAP 2014-11-11 Completed [facility] 00:00:00 [facility] Meningococcal 2014-11-11 Completed [facility] Oligosaccharide 00:00:00 [place] [facility] (groups A, C, Y and Branc h W-135) conjugate vaccine (MCV4O) Influenza Virus 2014-11-11 Completed [facility] Vaccine Quad IM 3+ YRS 00:00:00 [facility] TDAP 2014-11-11 Completed [facility] 00:00:00 [facility] Meningococcal 2014-11-11 Completed [facility] Oligosaccharide 00:00:00 [place] [facility] (groups A, C, Y and Branc h W-135) conjugate vaccine (MCV4O) Influenza Virus 2014-11-11 Completed [facility] 3[facility] 00:[facility]00 [facility] Meningococcal 2014-11-11 Completed [facility] Oligosaccharide 00:00:00 [place] [facility] (groups A, C, Y and Branc h W-135) conjugate vaccine (MCV4O) Influenza Virus 2014-11-11 Completed [facility] Vaccine Quad IM 3+ YRS 00:00:00 [facility] TDAP 2014-11-11 Completed [facility] 00:00:00 [facility] Meningococcal 2014-11-11 Completed [facility] Oligosaccharide 00:00:00 [place] [facility] (groups A, C, Y and Branc h W-135) conjugate vaccine (MCV4O) Influenza Virus 2014-11-11 Completed [facility] Vaccine Quad IM 3+ YRS 00:00:00 [facility] TDAP 2014-11-11 Completed [facility] 00:00:00 [facility] Meningococcal 2014-11-11 Completed [facility] Oligosaccharide 00:00:00 [place] [facility] (groups A, C, Y and Branc h W-135) conjugate vaccine (MCV4O) Influenza Virus 2014-11-11 Completed [facility] of Vaccine Quad IM 3+ YRS 00:00:00 [facility] TDAP 2014-11-11 Completed [facility] 00:00:00 [facility] Meningococcal 2014-11-11 Completed [facility] Oligosaccharide 00:00:00 [place] [facility] (groups A, C, Y and Branc h W-135) conjugate vaccine (MCV4O) Influenza Virus 2014-11-11 Completed [facility] of Vaccine Quad IM 3+ YRS 00:00:00 [facility] TDAP 2014-11-11 Completed [facility] 00:00:00 [facility] Meningococcal 2014-11-11 Completed [facility] Oligosaccharide 00:00:00 [place] [facility] (groups A, C, Y and Branc h W-135) conjugate vaccine (MCV4O) Influenza Virus 2014-11-11 Completed [facility] Vaccine Quad IM 3+ YRS 00:00:00 [facility] TDAP 2014-11-11 Completed [facility] 00:00:00 [facility] Meningococcal 2014-11-11 Completed [facility] Oligosaccharide 00:00:00 [place] [facility] (groups A, C, Y and Branc h W-135) conjugate vaccine (MCV4O) Influenza Virus 2014-11-11 Completed [facility] of Vaccine Quad IM 3+ YRS 00:00:00 [facility] TDAP 2014-11-11 Completed [facility] 00:00:00 [facility] Meningococcal 2014-11-11 Completed [facility] Oligosaccharide 00:00:00 [place] [facility] (groups A, C, Y and Branc h W-135) conjugate vaccine (MCV4O) Influenza Virus 2014-11-11 Completed [facility] of Vaccine Quad IM 3+ YRS 00:00:00 [facility] Tdap 2014-11-11 Completed [facility] 00:00:00 [facility] Meningococcal 2014-11-11 Completed [facility] Oligosaccharide 00:00:00 [place] [facility] (groups A, C, Y and Branc h W-135) conjugate vaccine (MCV4O) Influenza Virus 2014-11-11 Completed [facility] of Vaccine Quad IM 3+ YRS 00:00:00 [facility] TDAP 2014-11-11 Completed [facility] 00:00:00 [facility] Meningococcal 2014-11-11 Completed [facility] Oligosaccharide 00:00:00 [place] [facility] (groups A, C, Y and Branc h W-135) conjugate vaccine (MCV4O) Influenza Virus 2014-11-11 Completed [facility] of Vaccine Quad IM 3+ YRS 00:00:00 [facility] TDAP 2014-11-11 Completed [facility] 00:00:00 [facility] Meningococcal 2014-11-11 Completed [facility] Oligosaccharide 00:00:00 [place] [facility] (groups A, C, Y and Branc h W-135) conjugate vaccine (MCV4O) Influenza Virus 2014-11-11 Completed [facility] of Vaccine Quad IM 3+ YRS 00:00:00 [facility] TDAP 2014-11-11 Completed [facility] 00:00:00 [facility] Meningococcal 2014-11-11 Completed [facility] Oligosaccharide 00:00:00 [place] [facility] (groups A, C, Y and Branc h W-135) conjugate vaccine (MCV4O) Influenza Virus 2014-11-11 Completed [facility] of Vaccine Quad IM 3+ YRS 00:00:00 [facility] TDAP 2014-11-11 Completed [facility] 00:00:00 [facility] Meningococcal 2014-11-11 Completed [facility] Oligosaccharide 00:00:00 [place] [facility] (groups A, C, Y and Branc h W-135) conjugate vaccine (MCV4O) Influenza Virus 2014-11-11 Completed [facility] of Vaccine Quad IM 3+ YRS 00:00:00 [facility] TDAP 2014-11-11 Completed [facility] 00:00:00 [facility] Meningococcal 2014-11-11 Completed [facility] Oligosaccharide 00:00:00 [place] [facility] (groups A, C, Y and Branc h W-135) conjugate vaccine (MCV4O) Influenza Virus 2014-11-11 Completed [facility] of Vaccine Quad IM 3+ YRS 00:00:00 [facility] TDAP 2014-11-11 Completed [facility] 00:00:00 [facility] Meningococcal 2014-11-11 Completed [facility] Oligosaccharide 00:00:00 [place] [facility] (groups A, C, Y and Branc h W-135) conjugate vaccine (MCV4O) Influenza Virus 2014-11-11 Completed [facility] of Vaccine Quad IM 3+ YRS 00:00:00 [facility] TDAP 2014-11-11 Completed [facility] 00:00:00 [facility] Meningococcal 2014-11-11 Completed [facility] Oligosaccharide 00:00:00 [place] [facility] (groups A, C, Y and Branc h W-135) conjugate vaccine (MCV4O) Influenza Virus 2014-11-11 Completed [facility] of Vaccine Quad IM 3+ YRS 00:00:00 [facility] TDAP 2014-11-11 Completed [facility] 00:00:00 [facility] Meningococcal 2014-11-11 Completed [facility] Oligosaccharide 00:00:00 [place] [facility] (groups A, C, Y and Branc h W-135) conjugate vaccine (MCV4O) Influenza Virus 2014-11-11 Completed [facility] of Vaccine Quad IM 3+ YRS 00:00:00 [facility] Tdap 2014-11-11 Completed [facility] 00:00:00 [facility] TDAP 2014-11-11 Completed [facility] 00:00:00 [facility] Meningococcal 2014-11-11 Completed [facility] Oligosaccharide 00:00:00 [place] [facility] (groups A, C, Y and Branc h W-135) conjugate vaccine (MCV4O) Influenza Virus 2014-11-11 Completed [facility] of Vaccine Quad IM 3+ YRS 00:00:00 [facility] Meningococcal 2014-11-11 Completed [facility] Oligosaccharide 00:00:00 [place] [facility] (groups A, C, Y and Branc h W-135) conjugate vaccine (MCV4O) Influenza Virus 2014-11-11 Completed [facility] of Vaccine Quad IM 3+ YRS 00:00:00 [facility] TDAP 2014-11-11 Completed [facility] 00:00:00 [facility] Meningococcal 2014-11-11 Completed [facility] Oligosaccharide 00:00:00 [place] [facility] (groups A, C, Y and Branc h W-135) conjugate vaccine (MCV4O) Influenza Virus 2014-11-11 Completed [facility] of Vaccine Quad IM 3+ YRS 00:00:00 [facility] TDAP 2014-11-11 Completed [facility] 00:00:00 [facility] Meningococcal 2014-11-11 Completed [facility] Oligosaccharide 00:00:00 [place] [facility] (groups A, C, Y and Branc h W-135) conjugate vaccine (MCV4O) Influenza Virus 2014-11-11 Completed [facility] of Vaccine Quad IM 3+ YRS 00:00:00 [facility] TDAP 2014-11-11 Completed [facility] 00:00:00 [facility] Meningococcal 2014-11-11 Completed [facility] Oligosaccharide 00:00:00 [place] [facility] (groups A, C, Y and Branc h W-135) conjugate vaccine (MCV4O) Influenza Virus 2014-11-11 Completed [facility] of Vaccine Quad IM 3+ YRS 00:00:00 [facility] TDAP 2014-11-11 Completed [facility] 00:00:00 [facility] Meningococcal 2014-11-11 Completed [facility] Oligosaccharide 00:00:00 [place] [facility] (groups A, C, Y and Branc h W-135) conjugate vaccine (MCV4O) Influenza Virus 2014-11-11 Completed [facility] of Vaccine Quad IM 3+ YRS 00:00:00 [facility] TDAP 2014-11-11 Completed [facility] 00:00:00 [facility] Meningococcal 2014-11-11 Completed [facility] Oligosaccharide 00:00:00 [place] [facility] (groups A, C, Y and Branc h W-135) conjugate vaccine (MCV4O) Influenza Virus 2014-11-11 Completed [facility] of Vaccine Quad IM 3+ YRS 00:00:00 [facility] TDAP 2014-11-11 Completed [facility] 00:00:00 [facility] Meningococcal 2014-11-11 Completed [facility] Oligosaccharide 00:00:00 [place] [facility] (groups A, C, Y and Branc h W-135) conjugate vaccine (MCV4O) Influenza Virus 2014-11-11 Completed [facility] of Vaccine Quad IM 3+ YRS 00:00:00 [facility] TDAP 2014-11-11 Completed [facility] 00:00:00 [facility] Meningococcal 2014-11-11 Completed [facility] Oligosaccharide 00:00:00 [place] [facility] (groups A, C, Y and Branc h W-135) conjugate vaccine (MCV4O) Influenza Virus 2014-11-11 Completed [facility] of Vaccine Quad IM 3+ YRS 00:00:00 [facility] TDAP 2014-11-11 Completed [facility] 00:00:00 [facility] Meningococcal 2014-11-11 Completed [facility] Oligosaccharide 00:00:00 [place] [facility] (groups A, C, Y and Branc h W-135) conjugate vaccine (MCV4O) Influenza Virus 2014-11-11 Completed [facility] of Vaccine Quad IM 3+ YRS 00:00:00 [facility] TDAP 2014-11-11 Completed [facility] 00:00:00 [facility] Meningococcal 2014-11-11 Completed [facility] Oligosaccharide 00:00:00 [place] [facility] (groups A, C, Y and Branc h W-135) conjugate vaccine (MCV4O) Influenza Virus 2014-11-11 Completed [facility] of Vaccine Quad IM 3+ YRS 00:00:00 [facility] TDAP 2014-11-11 Completed [facility] 00:00:00 [facility] Meningococcal 2014-11-11 Completed [facility] Oligosaccharide 00:00:00 [place] [facility] (groups A, C, Y and Branc h W-135) conjugate vaccine (MCV4O) Influenza Virus 2014-11-11 Completed [facility] of Vaccine Quad IM 3+ YRS 00:00:00 [facility] Tdap 2014-11-11 Completed [facility] 00:00:00 [facility] Meningococcal 2014-11-11 Completed [facility] Oligosaccharide 00:00:00 [place] [facility] (groups A, C, Y and Branc h W-135) conjugate vaccine (MCV4O) Influenza Virus 2014-11-11 Completed [facility] of Vaccine Quad IM 3+ YRS 00:00:00 [facility] TDAP 2014-11-11 Completed [facility] 00:00:00 [facility] Meningococcal 2014-11-11 Completed [facility] Oligosaccharide 00:00:00 [place] [facility] (groups A, C, Y and Branc h W-135) conjugate vaccine (MCV4O) Influenza Virus 2014-11-11 Completed [facility] of Vaccine Quad IM 3+ YRS 00:00:00 [facility] TDAP 2014-11-11 Completed [facility] 00:00:00 [facility] Meningococcal 2014-11-11 Completed [facility] Oligosaccharide 00:00:00 [place] [facility] (groups A, C, Y and Branc h W-135) conjugate vaccine (MCV4O) Influenza Virus 2014-11-11 Completed [facility] of Vaccine Quad IM 3+ YRS 00:00:00 [facility] TDAP 2014-11-11 Completed [facility] 00:00:00 [facility] Meningococcal 2014-11-11 Completed [facility] Oligosaccharide 00:00:00 [place] [facility] (groups A, C, Y and Branc h W-135) conjugate vaccine (MCV4O) Influenza Virus 2014-11-11 Completed [facility] of Vaccine Quad IM 3+ YRS 00:00:00 [facility] TDAP 2014-11-11 Completed [facility] 00:00:00 [facility] Meningococcal 2014-11-11 Completed [facility] Oligosaccharide 00:00:00 [place] [facility] (groups A, C, Y and Branc h W-135) conjugate vaccine (MCV4O) Influenza Virus 2014-11-11 Completed [facility] of Vaccine Quad IM 3+ YRS 00:00:00 [facility] TDAP 2014-11-11 Completed [facility] 00:00:00 [facility] Meningococcal 2014-11-11 Completed [facility] Oligosaccharide 00:00:00 [place] [facility] (groups A, C, Y and Branc h W-135) conjugate vaccine (MCV4O) Influenza Virus 2014-11-11 Completed [facility] of Vaccine Quad IM 3+ YRS 00:00:00 [facility] TDAP 2014-11-11 Completed [facility] 00:00:00 [facility] Meningococcal 2014-11-11 Completed [facility] Oligosaccharide 00:00:00 [place] [facility] (groups A, C, Y and Branc h W-135) conjugate vaccine (MCV4O) Influenza Virus 2014-11-11 Completed [facility] of Vaccine Quad IM 3+ YRS 00:00:00 [facility] TDAP 2014-11-11 Completed [facility] 00:00:00 [facility] Meningococcal 2014-11-11 Completed [facility] Oligosaccharide 00:00:00 [place] [facility] (groups A, C, Y and Branc h W-135) conjugate vaccine (MCV4O) Influenza Virus 2014-11-11 Completed [facility] of Vaccine Quad IM 3+ YRS 00:00:00 [facility] TDAP 2014-11-11 Completed [facility] 00:00:00 [facility] Meningococcal 2014-11-11 Completed [facility] Oligosaccharide 00:00:00 [place] [facility] (groups A, C, Y and Branc h W-135) conjugate vaccine (MCV4O) Influenza Virus 2014-11-11 Completed [facility] of Vaccine Quad IM 3+ YRS 00:00:00 [facility] TDAP 2014-11-11 Completed [facility] 00:00:00 [facility] Meningococcal 2014-11-11 Completed [facility] Oligosaccharide 00:00:00 [place] [facility] (groups A, C, Y and Branc h W-135) conjugate vaccine (MCV4O) Influenza Virus 2014-11-11 Completed [facility] of Vaccine Quad IM 3+ YRS 00:00:00 [facility] Tdap 2014-11-11 Completed [facility] 00:00:00 [facility] Meningococcal 2014-11-11 Completed [facility] Oligosaccharide 00:00:00 [place] [facility] (groups A, C, Y and Branc h W-135) conjugate vaccine (MCV4O) TDAP 2014-11-11 Completed [facility] 00:00:00 [facility] Meningococcal 2014-11-11 Completed [facility] Oligosaccharide 00:00:00 [place] [facility] (groups A, C, Y and Branc h W-135) conjugate vaccine (MCV4O) Influenza Virus 2014-11-11 Completed [facility] Vaccine Quad IM 3+ YRS 00:00:00 [facility] Influenza Virus 2014-11-11 Completed [facility] of Vaccine Quad IM 3+ YRS 00:00:00 [facility] TDAP 2014-11-11 Completed [facility] 00:00:00 [facility] Meningococcal 2014-11-11 Completed [facility] Oligosaccharide 00:00:00 [place] [facility] (groups A, C, Y and Branc h W-135) conjugate vaccine (MCV4O) Influenza Virus 2014-11-11 Completed [facility] of Vaccine Quad IM 3+ YRS 00:00:00 [facility] TDAP 2014-11-11 Completed [facility] 00:00:00 [facility] Meningococcal 2014-11-11 Completed [facility] Oligosaccharide 00:00:00 [place] [facility] (groups A, C, Y and Branc h W-135) conjugate vaccine (MCV4O) Influenza Virus 2014-11-11 Completed [facility] of Vaccine Quad IM 3+ YRS 00:00:00 [facility] TDAP 2014-11-11 Completed [facility] 00:00:00 [facility] Meningococcal 2014-11-11 Completed [facility] Oligosaccharide 00:00:00 [place] [facility] (groups A, C, Y and Branc h W-135) conjugate vaccine (MCV4O) Influenza Virus 2014-11-11 Completed [facility] of Vaccine Quad IM 3+ YRS 00:00:00 [facility] TDAP 2014-11-11 Completed [facility] 00:00:00 [facility] Meningococcal 2014-11-11 Completed [facility] Oligosaccharide 00:00:00 [place] [facility] (groups A, C, Y and Branc h W-135) conjugate vaccine (MCV4O) Influenza Virus 2014-11-11 Completed [facility] of Vaccine Quad IM 3+ YRS 00:00:00 [facility] Tdap 2014-11-11 Completed [facility] 00:00:00 [facility] Meningococcal 2014-11-11 Completed [facility] Oligosaccharide 00:00:00 [place] [facility] (groups A, C, Y and Branc h W-135) conjugate vaccine (MCV4O) TDAP 2014-11-11 Completed [facility] 00:00:00 [facility] Meningococcal 2014-11-11 Completed [facility] Oligosaccharide 00:00:00 [place] [facility] (groups A, C, Y and Branc h W-135) conjugate vaccine (MCV4O) Influenza Virus 2014-11-11 Completed [facility] of Vaccine Quad IM 3+ YRS 00:00:00 [facility] Influenza Virus 2014-11-11 Completed [facility] of Vaccine Quad IM 3+ YRS 00:00:00 [facility] TDAP 2014-11-11 Completed [facility] 00:00:00 [facility] Meningococcal 2014-11-11 Completed [facility] Oligosaccharide 00:00:00 [place] [facility] (groups A, C, Y and Branc h W-135) conjugate vaccine (MCV4O) Influenza Virus 2014-11-11 Completed [facility] of Vaccine Quad IM 3+ YRS 00:00:00 [facility] TDAP 2014-11-11 Completed [facility] 00:00:00 [facility] Meningococcal 2014-11-11 Completed [facility] Oligosaccharide 00:00:00 [place] [facility] (groups A, C, Y and Branc h W-135) conjugate vaccine (MCV4O) Influenza Virus 2014-11-11 Completed [facility] of Vaccine Quad IM 3+ YRS 00:00:00 [facility] TDAP 2014-11-11 Completed [facility] 00:00:00 [facility] Meningococcal 2014-11-11 Completed [facility] Oligosaccharide 00:00:00 [place] [facility] (groups A, C, Y and Branc h W-135) conjugate vaccine (MCV4O) Influenza Virus 2014-11-11 Completed [facility] of Vaccine Quad IM 3+ YRS 00:00:00 [facility] TDAP 2014-11-11 Completed [facility] 00:00:00 [facility] Meningococcal 2014-11-11 Completed [facility] Oligosaccharide 00:00:00 [place] [facility] (groups A, C, Y and Branc h W-135) conjugate vaccine (MCV4O) Influenza Virus 2014-11-11 Completed [facility] of Vaccine Quad IM 3+ YRS 00:00:00 [facility] TDAP 2014-11-11 Completed [facility] 00:00:00 [facility] Meningococcal 2014-11-11 Completed [facility] Oligosaccharide 00:00:00 [place] [facility] (groups A, C, Y and Branc h W-135) conjugate vaccine (MCV4O) Influenza Virus 2014-11-11 Completed [facility] of Vaccine Quad IM 3+ YRS 00:00:00 [facility] TDAP 2014-11-11 Completed [facility] 00:00:00 [facility] Meningococcal 2014-11-11 Completed [facility] Oligosaccharide 00:00:00 [place] [facility] (groups A, C, Y and Branc h W-135) conjugate vaccine (MCV4O) Influenza Virus 2014-11-11 Completed [facility] of Vaccine Quad IM 3+ YRS 00:00:00 [facility] TDAP 2014-11-11 Completed [facility] 00:00:00 [facility] Meningococcal 2014-11-11 Completed [facility] Oligosaccharide 00:00:00 [place] [facility] (groups A, C, Y and Branc h W-135) conjugate vaccine (MCV4O) Influenza Virus 2014-11-11 Completed [facility] Vaccine Quad IM 3+ YRS 00:00:00 [facility] Tdap 2014-11-11 Completed [facility] 00:00:00 [facility] Meningococcal 2014-11-11 Completed [facility] Oligosaccharide 00:00:00 [place] [facility] (groups A, C, Y and Branc h W-135) conjugate vaccine (MCV4O) Influenza Virus 2014-11-11 Completed [facility] Vaccine Quad IM 3+ YRS 00:00:00 [facility] TDAP 2014-11-11 Completed [facility] 00:00:00 [facility] Meningococcal 2014-11-11 Completed [facility] Oligosaccharide 00:00:00 [place] [facility] (groups A, C, Y and Branc h W-135) conjugate vaccine (MCV4O) Influenza Virus 2014-11-11 Completed [facility] of Vaccine Quad IM 3+ YRS 00:00:00 [facility] TDAP 2014-11-11 Completed [facility] 00:00:00 [facility] Meningococcal 2014-11-11 Completed [facility] Oligosaccharide 00:00:00 [place] [facility] (groups A, C, Y and Branc h W-135) conjugate vaccine (MCV4O) Influenza Virus 2014-11-11 Completed [facility] Vaccine Quad IM 3+ YRS 00:00:00 [facility] TDAP 2014-11-11 Completed [facility] 00:00:00 [facility] Meningococcal 2014-11-11 Completed [facility] Oligosaccharide 00:00:00 [place] [facility] (groups A, C, Y and Branc h W-135) conjugate vaccine (MCV4O) Influenza Virus 2014-11-11 Completed [facility] of Vaccine Quad IM 3+ YRS 00:00:00 [facility] TDAP 2014-11-11 Completed [facility] 00:00:00 [facility] Meningococcal 2014-11-11 Completed [facility] Oligosaccharide 00:00:00 [place] [facility] (groups A, C, Y and Branc h W-135) conjugate vaccine (MCV4O) Influenza Virus 2014-11-11 Completed [facility] Vaccine Quad IM 3+ YRS 00:00:00 [facility] TDAP 2014-11-11 Completed [facility] 00:00:00 [facility] Meningococcal 2014-11-11 Completed [facility] Oligosaccharide 00:00:00 [place] [facility] (groups A, C, Y and Branc h W-135) conjugate vaccine (MCV4O) Influenza Virus 2014-11-11 Completed [facility] Vaccine Quad IM 3+ YRS 00:00:00 [facility] TDAP 2014-11-11 Completed [facility] 00:00:00 [facility] Meningococcal 2014-11-11 Completed [facility] Oligosaccharide 00:00:00 [place] [facility] (groups A, C, Y and Branc h W-135) conjugate vaccine (MCV4O) Influenza Virus 2014-11-11 Completed [facility] Vaccine Quad IM 3+ YRS 00:00:00 [facility] TDAP 2014-11-11 Completed [facility] 00:00:00 [facility] Meningococcal 2014-11-11 Completed [facility] Oligosaccharide 00:00:00 [place] [facility] (groups A, C, Y and Branc h W-135) conjugate vaccine (MCV4O) Influenza Virus 2014-11-11 Completed [facility] Vaccine Quad IM 3+ YRS 00:00:00 [facility] Tdap 2014-11-11 Completed [facility] 00:00:00 [facility] Meningococcal 2014-11-11 Completed [facility] Oligosaccharide 00:00:00 [place] [facility] (groups A, C, Y and Branc h W-135) conjugate vaccine (MCV4O) Influenza Virus 2014-11-11 Completed [facility] Vaccine Quad IM 3+ YRS 00:00:00 [facility] Tdap 2014-11-11 Completed [facility] 00:00:00 [facility] Meningococcal 2014-11-11 Completed [facility] Oligosaccharide 00:00:00 [place] [facility] (groups A, C, Y and Branc h W-135) conjugate vaccine (MCV4O) Influenza Virus 2014-11-11 Completed [facility] Vaccine Quad IM 3+ YRS 00:00:00 [facility] Tdap 2014-11-11 Completed [facility] 00:00:00 [facility] Meningococcal 2014-11-11 Completed [facility] Oligosaccharide 00:00:00 [place] [facility] (groups A, C, Y and Branc h W-135) conjugate vaccine (MCV4O) Influenza Virus 2014-11-11 Completed [facility] Vaccine Quad IM 3+ YRS 00:00:00 [facility] Tdap 2014-11-11 Completed [facility] 00:00:00 [facility] Meningococcal 2014-11-11 Completed [facility] Oligosaccharide 00:00:00 [place] [facility] (groups A, C, Y and Branc h W-135) conjugate vaccine (MCV4O) Influenza Virus 2014-11-11 Completed [facility] Vaccine Quad IM 3+ YRS 00:00:00 [facility] Tdap 2014-11-11 Completed [facility] 00:00:00 [facility] Meningococcal 2014-11-11 Completed [facility] Oligosaccharide 00:00:00 [place] [facility] (groups A, C, Y and Branc h W-135) conjugate vaccine (MCV4O) Influenza Virus 2014-11-11 Completed [facility] Vaccine Quad IM 3+ YRS 00:00:00 [facility] Tdap 2014-11-11 Completed [facility] 00:00:00 [facility] Meningococcal 2014-11-11 Completed [facility] Oligosaccharide 00:00:00 [place] [facility] (groups A, C, Y and Branc h W-135) conjugate vaccine (MCV4O) Influenza Virus 2014-11-11 Completed [facility] Vaccine Quad IM 3+ YRS 00:00:00 [facility] Tdap 2014-11-11 Completed [facility] 00:00:00 [facility] Meningococcal 2014-11-11 Completed [facility] 00:00:00 [place] [facility] (groups A, C, Y and Branc h W-135) conjugate vaccine (MCV4O) Influenza Virus 2014-11-11 Completed [facility] of Vaccine Quad IM 3+ YRS 00:00:00 [facility] Tdap 2014-11-11 Completed University 00:00:00 [facility] Meningococcal 2014-11-11 Completed [facility] 00:00:00 [place] [facility] (groups A, C, Y and Branc h W-135) conjugate vaccine (MCV4O) Influenza Virus 2014-11-11 Completed [facility] of Vaccine Quad IM 3+ YRS 00:00:00 [facility] Influenza Virus 2013-08-11 Completed [facility] Vaccine (3+ yrs) 00:00:00 [facility] Influenza Virus 2013-08-11 Completed [facility] of Vaccine (3+ yrs) 00:00:00 [facility] Influenza Virus 2013-08-11 Completed [facility] Vaccine (3+ yrs) 00:00:00 [facility] Influenza Virus 2013-08-11 Completed [facility] Vaccine (3+ yrs) 00:00:00 [facility] Influenza Virus 2013-08-11 Completed [facility] Vaccine (3+ yrs) 00:00:00 [facility] Influenza Virus 2013-08-11 Completed [facility] Vaccine (3+ yrs) 00:00:00 [facility] Influenza Virus 2013-08-11 Completed [facility] Vaccine (3+ yrs) 00:00:00 [facility] Influenza Virus 2013-08-11 Completed [facility] Vaccine (3+ yrs) 00:00:00 [facility] Influenza Virus 2013-08-11 Completed [facility] Vaccine (3+ yrs) 00:00:00 [facility] Influenza Virus 2013-08-11 Completed [facility] Vaccine (3+ yrs) 00:00:00 [facility] Influenza Virus 2013-08-11 Completed [facility] Vaccine (3+ yrs) 00:00:00 [facility] Influenza Virus 2013-08-11 Completed [facility] Vaccine (3+ yrs) 00:00:00 [facility] Influenza Virus 2013-08-11 Completed [facility] Vaccine (3+ yrs) 00:00:00 [facility] Influenza Virus 2013-08-11 Completed [facility] Vaccine (3+ yrs) 00:00:00 [facility] Influenza Virus 2013-08-11 Completed [facility] Vaccine (3+ yrs) 00:00:00 [facility] Influenza Virus 2013-08-11 Completed [facility] Vaccine (3+ yrs) 00:00:00 [facility] Influenza Virus 2013-08-11 Completed [facility] Vaccine (3+ yrs) 00:00:00 [facility] Influenza Virus 2013-08-11 Completed [facility] Vaccine (3+ yrs) 00:00:00 [facility] Influenza Virus 2013-08-11 Completed [facility] Vaccine (3+ yrs) 00:00:00 [facility] Influenza Virus 2013-08-11 Completed [facility] Vaccine (3+ yrs) 00:00:00 [facility] Influenza Virus 2013-08-11 Completed [facility] Vaccine (3+ yrs) 00:00:00 [facility] Influenza Virus 2013-08-11 Completed [facility] Vaccine (3+ yrs) 00:00:00 [facility] Influenza Virus 2013-08-11 Completed [facility] Vaccine (3+ yrs) 00:00:00 [facility] Influenza Virus 2013-08-11 Completed [facility] Vaccine (3+ yrs) 00:00:00 [facility] Influenza Virus 2013-08-11 Completed [facility] Vaccine (3+ yrs) 00:00:00 [facility] Influenza Virus 2013-08-11 Completed [facility] Vaccine (3+ yrs) 00:00:00 [facility] Influenza Virus 2013-08-11 Completed [facility] Vaccine (3+ yrs) 00:00:00 [facility] Influenza Virus 2013-08-11 Completed [facility] Vaccine (3+ yrs) 00:00:00 [facility] Influenza Virus 2013-08-11 Completed [facility] Vaccine (3+ yrs) 00:00:00 [facility] Influenza Virus 2013-08-11 Completed [facility] Vaccine (3+ yrs) 00:00:00 [facility] Influenza Virus 2013-08-11 Completed [facility] Vaccine (3+ yrs) 00:00:00 [facility] Influenza Virus 2013-08-11 Completed [facility] Vaccine (3+ yrs) 00:00:00 [facility] Influenza Virus 2013-08-11 Completed [facility] Vaccine (3+ yrs) 00:00:00 [facility] Influenza Virus 2013-08-11 Completed [facility] Vaccine (3+ yrs) 00:00:00 [facility] Influenza Virus 2013-08-11 Completed [facility] Vaccine (3+ yrs) 00:00:00 [facility] Influenza Virus 2013-08-11 Completed [facility] Vaccine (3+ yrs) 00:00:00 [facility] Influenza Virus 2013-08-11 Completed [facility] Vaccine (3+ yrs) 00:00:00 [facility] Influenza Virus 2013-08-11 Completed [facility] Vaccine (3+ yrs) 00:00:00 [facility] Influenza Virus 2013-08-11 Completed [facility] Vaccine (3+ yrs) 00:00:00 [facility] Influenza Virus 2013-08-11 Completed [facility] Vaccine (3+ yrs) 00:00:00 [facility] Influenza Virus 2013-08-11 Completed [facility] Vaccine (3+ yrs) 00:00:00 [facility] Influenza Virus 2013-08-11 Completed [facility] Vaccine (3+ yrs) 00:00:00 [facility] Influenza Virus 2013-08-11 Completed [facility] Vaccine (3+ yrs) 00:00:00 [facility] Influenza Virus 2013-08-11 Completed [facility] Vaccine (3+ yrs) 00:00:00 [facility] Influenza Virus 2013-08-11 Completed [facility] Vaccine (3+ yrs) 00:00:00 [facility] Influenza Virus 2013-08-11 Completed [facility] Vaccine (3+ yrs) 00:00:00 [facility] Influenza Virus 2013-08-11 Completed [facility] Vaccine (3+ yrs) 00:00:00 [facility] Influenza Virus 2013-08-11 Completed [facility] Vaccine (3+ yrs) 00:00:00 [facility] Influenza Virus 2013-08-11 Completed [facility] Vaccine (3+ yrs) 00:00:00 [facility] Influenza Virus 2013-08-11 Completed [facility] Vaccine (3+ yrs) 00:00:00 [facility] Influenza Virus 2013-08-11 Completed [facility] Vaccine (3+ yrs) 00:00:00 [facility] Influenza Virus 2013-08-11 Completed [facility] Vaccine (3+ yrs) 00:00:00 [facility] Influenza Virus 2013-08-11 Completed [facility] Vaccine (3+ yrs) 00:00:00 [facility] Influenza Virus 2013-08-11 Completed [facility] Vaccine (3+ yrs) 00:00:00 [facility] Influenza Virus 2013-08-11 Completed [facility] Vaccine (3+ yrs) 00:00:00 [facility] Influenza Virus 2013-08-11 Completed [facility] Vaccine (3+ yrs) 00:00:00 [facility] Influenza Virus 2013-08-11 Completed [facility] Vaccine (3+ yrs) 00:00:00 [facility] Influenza Virus 2013-08-11 Completed [facility] Vaccine (3+ yrs) 00:00:00 [facility] Influenza Virus 2013-08-11 Completed [facility] Vaccine (3+ yrs) 00:00:00 [facility] Influenza Virus 2013-08-11 Completed [facility] Vaccine (3+ yrs) 00:00:00 [facility] Influenza Virus 2013-08-11 Completed [facility] Vaccine (3+ yrs) 00:00:00 [facility] Influenza Virus 2013-08-11 Completed [facility] Vaccine (3+ yrs) 00:00:00 [facility] Influenza Virus 2013-08-11 Completed [facility] Vaccine (3+ yrs) 00:00:00 [facility] Influenza Virus 2013-08-11 Completed [facility] Vaccine (3+ yrs) 00:00:00 [facility] Influenza Virus 2013-08-11 Completed [facility] Vaccine (3+ yrs) 00:00:00 [facility] Influenza Virus 2013-08-11 Completed [facility] Vaccine (3+ yrs) 00:00:00 [facility] Influenza Virus 2013-08-11 Completed [facility] Vaccine (3+ yrs) 00:00:00 [facility] Influenza Virus 2013-08-11 Completed [facility] Vaccine (3+ yrs) 00:00:00 [facility] Influenza Virus 2013-08-11 Completed [facility] Vaccine (3+ yrs) 00:00:00 [facility] Influenza Virus 2013-08-11 Completed [facility] Vaccine (3+ yrs) 00:00:00 [facility] Influenza Virus 2013-08-11 Completed [facility] Vaccine (3+ yrs) 00:00:00 [facility] Influenza Virus 2013-08-11 Completed [facility] Vaccine (3+ yrs) 00:00:00 [facility] Influenza Virus 2013-08-11 Completed [facility] Vaccine (3+ yrs) 00:00:00 [facility] Influenza Virus 2013-08-11 Completed [facility] Vaccine (3+ yrs) 00:00:00 [facility] Influenza Virus 2013-08-11 Completed [facility] Vaccine (3+ yrs) 00:00:00 [facility] Influenza Virus 2013-08-11 Completed [facility] Vaccine (3+ yrs) 00:00:00 [facility] Influenza Virus 2013-08-11 Completed [facility] Vaccine (3+ yrs) 00:00:00 [facility] Influenza Virus 2013-08-11 Completed [facility] Vaccine (3+ yrs) 00:00:00 [facility] Influenza Virus 2013-08-11 Completed [facility] Vaccine (3+ yrs) 00:00:00 [facility] Influenza Virus 2013-08-11 Completed [facility] Vaccine (3+ yrs) 00:00:00 [facility] Influenza Virus 2013-08-11 Completed [facility] Vaccine (3+ yrs) 00:00:00 [facility] Influenza Virus 2013-08-11 Completed [facility] Vaccine (3+ yrs) 00:00:00 [facility] Influenza Virus 2013-08-11 Completed [facility] Vaccine (3+ yrs) 00:00:00 [facility] Influenza Virus 2013-08-11 Completed [facility] Vaccine (3+ yrs) 00:00:00 [facility] Influenza Virus 2013-08-11 Completed [facility] Vaccine (3+ yrs) 00:00:00 [facility] Influenza Virus 2013-08-11 Completed [facility] Vaccine (3+ yrs) 00:00:00 [facility] Influenza Virus 2013-08-11 Completed [facility] Vaccine (3+ yrs) 00:00:00 [facility] Influenza Virus 2013-08-11 Completed [facility] Vaccine (3+ yrs) 00:00:00 [facility] Influenza Virus 2013-08-11 Completed [facility] Vaccine (3+ yrs) 00:00:00 [facility] Varicella 2012-12-05 Completed [facility] (varivax)(chicken pox) 00:00:00 [facility] Varicella 2012-12-05 Completed [facility] (varivax)(chicken pox) 00:00:00 [facility] Varicella 2012-12-05 Completed [facility] (varivax)(chicken pox) 00:00:00 [facility] Varicella 2012-12-05 Completed [facility] (varivax)(chicken pox) 00:00:00 [facility] Varicella 2012-12-05 Completed [facility] (varivax)(chicken pox) 00:00:00 [facility] Varicella 2012-12-05 Completed [facility] (varivax)(chicken pox) 00:00:00 [facility] Varicella 2012-12-05 Completed [facility] (varivax)(chicken pox) 00:00:00 [facility] Varicella 2012-12-05 Completed [facility] (varivax)(chicken pox) 00:00:00 [facility] Varicella 2012-12-05 Completed [facility] (varivax)(chicken pox) 00:00:00 [facility] Varicella 2012-12-05 Completed [facility] (varivax)(chicken pox) 00:00:00 [facility] Varicella 2012-12-05 Completed [facility] (varivax)(chicken pox) 00:00:00 [facility] Varicella 2012-12-05 Completed [facility] (varivax)(chicken pox) 00:00:00 [facility] Varicella 2012-12-05 Completed [facility] (varivax)(chicken pox) 00:00:00 [facility] Varicella 2012-12-05 Completed [facility] (varivax)(chicken pox) 00:00:00 [facility] Varicella 2012-12-05 Completed [facility] (varivax)(chicken pox) 00:00:00 [facility] Varicella 2012-12-05 Completed [facility] (varivax)(chicken pox) 00:00:00 [facility] Varicella 2012-12-05 Completed [facility] (varivax)(chicken pox) 00:00:00 [facility] Varicella 2012-12-05 Completed [facility] (varivax)(chicken pox) 00:00:00 [facility] Varicella 2012-12-05 Completed [facility] (varivax)(chicken pox) 00:00:00 [facility] Varicella 2012-12-05 Completed [facility] (varivax)(chicken pox) 00:00:00 [facility] Varicella 2012-12-05 Completed [facility] (varivax)(chicken pox) 00:00:00 [facility] Varicella 2012-12-05 Completed [facility] (varivax)(chicken pox) 00:00:00 [facility] Varicella 2012-12-05 Completed [facility] (varivax)(chicken pox) 00:00:00 [facility] Varicella 2012-12-05 Completed [facility] (varivax)(chicken pox) 00:00:00 [facility] Varicella 2012-12-05 Completed [facility] (varivax)(chicken pox) 00:00:00 [facility] Varicella 2012-12-05 Completed [facility] (varivax)(chicken pox) 00:00:00 [facility] Varicella 2012-12-05 Completed [facility] (varivax)(chicken pox) 00:00:00 [facility] Varicella 2012-12-05 Completed [facility] (varivax)(chicken pox) 00:00:00 [facility] Varicella 2012-12-05 Completed [facility] (varivax)(chicken pox) 00:00:00 [facility] Varicella 2012-12-05 Completed [facility] (varivax)(chicken pox) 00:00:00 [facility] Varicella 2012-12-05 Completed [facility] (varivax)(chicken pox) 00:00:00 [facility] Varicella 2012-12-05 Completed [facility] (varivax)(chicken pox) 00:00:00 [facility] Varicella 2012-12-05 Completed [facility] (varivax)(chicken pox) 00:00:00 [facility] Varicella 2012-12-05 Completed [facility] (varivax)(chicken pox) 00:00:00 [facility] Varicella 2012-12-05 Completed [facility] (varivax)(chicken pox) 00:00:00 [facility] Varicella 2012-12-05 Completed [facility] (varivax)(chicken pox) 00:00:00 [facility] Varicella 2012-12-05 Completed [facility] (varivax)(chicken pox) 00:00:00 [facility] Varicella 2012-12-05 Completed [facility] (varivax)(chicken pox) 00:00:00 [facility] Varicella 2012-12-05 Completed [facility] (varivax)(chicken pox) 00:00:00 [facility] Varicella 2012-12-05 Completed [facility] (varivax)(chicken pox) 00:00:00 [facility] Varicella 2012-12-05 Completed [facility] (varivax)(chicken pox) 00:00:00 [facility] Varicella 2012-12-05 Completed [facility] (varivax)(chicken pox) 00:00:00 [facility] Varicella 2012-12-05 Completed [facility] (varivax)(chicken pox) 00:00:00 [facility] Varicella 2012-12-05 Completed [facility] (varivax)(chicken pox) 00:00:00 [facility] Varicella 2012-12-05 Completed [facility] (varivax)(chicken pox) 00:00:00 [facility] Varicella 2012-12-05 Completed [facility] (varivax)(chicken pox) 00:00:00 [facility] Varicella 2012-12-05 Completed [facility] (varivax)(chicken pox) 00:00:00 [facility] Varicella 2012-12-05 Completed [facility] (varivax)(chicken pox) 00:00:00 [facility] Varicella 2012-12-05 Completed [facility] (varivax)(chicken pox) 00:00:00 [facility] Varicella 2012-12-05 Completed [facility] (varivax)(chicken pox) 00:00:00 [facility] Varicella 2012-12-05 Completed [facility] (varivax)(chicken pox) 00:00:00 [facility] Varicella 2012-12-05 Completed [facility] (varivax)(chicken pox) 00:00:00 [facility] Varicella 2012-12-05 Completed [facility] (varivax)(chicken pox) 00:00:00 [facility] Varicella 2012-12-05 Completed [facility] (varivax)(chicken pox) 00:00:00 [facility] Varicella 2012-12-05 Completed [facility] (varivax)(chicken pox) 00:00:00 [facility] Varicella 2012-12-05 Completed [facility] (varivax)(chicken pox) 00:00:00 [facility] Varicella 2012-12-05 Completed [facility] (varivax)(chicken pox) 00:00:00 [facility] Varicella 2012-12-05 Completed [facility] (varivax)(chicken pox) 00:00:00 [facility] Varicella 2012-12-05 Completed [facility] (varivax)(chicken pox) 00:00:00 [facility] Varicella 2012-12-05 Completed [facility] (varivax)(chicken pox) 00:00:00 [facility] Varicella 2012-12-05 Completed [facility] (varivax)(chicken pox) 00:00:00 [facility] Varicella 2012-12-05 Completed [facility] (varivax)(chicken pox) 00:00:00 [facility] Varicella 2012-12-05 Completed [facility] (varivax)(chicken pox) 00:00:00 [facility] Varicella 2012-12-05 Completed [facility] (varivax)(chicken pox) 00:00:00 [facility] Varicella 2012-12-05 Completed [facility] (varivax)(chicken pox) 00:00:00 [facility] Varicella 2012-12-05 Completed [facility] (varivax)(chicken pox) 00:00:00 [facility] Varicella 2012-12-05 Completed [facility] (varivax)(chicken pox) 00:00:00 [facility] Varicella 2012-12-05 Completed [facility] (varivax)(chicken pox) 00:00:00 [facility] Varicella 2012-12-05 Completed [facility] (varivax)(chicken pox) 00:00:00 [facility] Varicella 2012-12-05 Completed [facility] (varivax)(chicken pox) 00:00:00 [facility] Varicella 2012-12-05 Completed [facility] (varivax)(chicken pox) 00:00:00 [facility] Varicella 2012-12-05 Completed [facility] (varivax)(chicken pox) 00:00:00 [facility] Varicella 2012-12-05 Completed [facility] (varivax)(chicken pox) 00:00:00 [facility] Varicella 2012-12-05 Completed [facility] (varivax)(chicken pox) 00:00:00 [facility] Varicella 2012-12-05 Completed [facility] (varivax)(chicken pox) 00:00:00 [facility] Varicella 2012-12-05 Completed [facility] (varivax)(chicken pox) 00:00:00 [facility] Varicella 2012-12-05 Completed [facility] (varivax)(chicken pox) 00:00:00 [facility] Varicella 2012-12-05 Completed [facility] (varivax)(chicken pox) 00:00:00 [facility] Varicella 2012-12-05 Completed [facility] (varivax)(chicken pox) 00:00:00 [facility] Varicella 2012-12-05 Completed [facility] (varivax)(chicken pox) 00:00:00 [facility] Varicella 2012-12-05 Completed [facility] (varivax)(chicken pox) 00:00:00 [facility] Varicella 2012-12-05 Completed [facility] (varivax)(chicken pox) 00:00:00 [facility] Varicella 2012-12-05 Completed [facility] (varivax)(chicken pox) 00:00:00 [facility] Varicella 2012-12-05 Completed [facility] (varivax)(chicken pox) 00:00:00 [facility] Varicella 2012-12-05 Completed [facility] (varivax)(chicken pox) 00:00:00 [facility] Varicella 2012-12-05 Completed [facility] (varivax)(chicken pox) 00:00:00 [facility] Varicella 2012-12-05 Completed [facility] (varivax)(chicken pox) 00:00:00 [facility] Influenza Virus 2012-10-30 Completed [facility] Vaccine 00:00:00 [facility] Influenza Virus 2012-10-30 Completed [facility] Vaccine 00:00:00 [facility] Influenza Virus 2012-10-30 Completed [facility] Vaccine 00:00:00 [facility] Influenza Virus 2012-10-30 Completed [facility] Vaccine 00:00:00 [facility] Influenza Virus 2012-10-30 Completed [facility] Vaccine 00:00:00 [facility] Influenza Virus 2012-10-30 Completed [facility] Vaccine 00:00:00 [facility] Influenza Virus 2012-10-30 Completed [facility] Vaccine 00:00:00 [facility] Influenza Virus 2012-10-30 Completed [facility] Vaccine 00:00:00 [facility] Influenza Virus 2012-10-30 Completed [facility] Vaccine 00:00:00 [facility] Influenza Virus 2012-10-30 Completed [facility] Vaccine 00:00:00 [facility] Influenza Virus 2012-10-30 Completed [facility] Vaccine 00:00:00 [facility] Influenza Virus 2012-10-30 Completed [facility] Vaccine 00:00:00 [facility] Influenza Virus 2012-10-30 Completed [facility] Vaccine 00:00:00 [facility] Influenza Virus 2012-10-30 Completed [facility] Vaccine 00:00:00 [facility] Influenza Virus 2012-10-30 Completed [facility] Vaccine 00:00:00 [facility] Influenza Virus 2012-10-30 Completed [facility] Vaccine 00:00:00 [facility] Influenza Virus 2012-10-30 Completed [facility] Vaccine 00:00:00 [facility] Influenza Virus 2012-10-30 Completed [facility] Vaccine 00:00:00 [facility] Influenza Virus 2012-10-30 Completed [facility] Vaccine 00:00:00 [facility] Influenza Virus 2012-10-30 Completed [facility] Vaccine 00:00:00 [facility] Influenza Virus 2012-10-30 Completed [facility] Vaccine 00:00:00 [facility] Influenza Virus 2012-10-30 Completed [facility] Vaccine 00:00:00 [facility] Influenza Virus 2012-10-30 Completed [facility] Vaccine 00:00:00 [facility] Influenza Virus 2012-10-30 Completed [facility] Vaccine 00:00:00 [facility] Influenza Virus 2012-10-30 Completed [facility] Vaccine 00:00:00 [facility] Influenza Virus 2012-10-30 Completed [facility] Vaccine 00:00:00 [facility] Influenza Virus 2012-10-30 Completed [facility] Vaccine 00:00:00 [facility] Influenza Virus 2012-10-30 Completed [facility] Vaccine 00:00:00 [facility] Influenza Virus 2012-10-30 Completed [facility] Vaccine 00:00:00 [facility] Influenza Virus 2012-10-30 Completed [facility] Vaccine 00:00:00 [facility] Influenza Virus 2012-10-30 Completed [facility] Vaccine 00:00:00 [facility] Influenza Virus 2012-10-30 Completed [facility] Vaccine 00:00:00 [facility] Influenza Virus 2012-10-30 Completed [facility] Vaccine 00:00:00 [facility] Influenza Virus 2012-10-30 Completed [facility] Vaccine 00:00:00 [facility] Influenza Virus 2012-10-30 Completed [facility] Vaccine 00:00:00 [facility] Influenza Virus 2012-10-30 Completed [facility] Vaccine 00:00:00 [facility] Influenza Virus 2012-10-30 Completed [facility] Vaccine 00:00:00 [facility] Influenza Virus 2012-10-30 Completed [facility] Vaccine 00:00:00 [facility] Influenza Virus 2012-10-30 Completed [facility] Vaccine 00:00:00 [facility] Influenza Virus 2012-10-30 Completed [facility] Vaccine 00:00:00 [facility] Influenza Virus 2012-10-30 Completed [facility] Vaccine 00:00:00 [facility] Influenza Virus 2012-10-30 Completed [facility] Vaccine 00:00:00 [facility] Influenza Virus 2012-10-30 Completed [facility] Vaccine 00:00:00 [facility] Influenza Virus 2012-10-30 Completed [facility] Vaccine 00:00:00 [facility] Influenza Virus 2012-10-30 Completed [facility] Vaccine 00:00:00 [facility] Influenza Virus 2012-10-30 Completed [facility] Vaccine 00:00:00 [facility] Influenza Virus 2012-10-30 Completed [facility] Vaccine 00:00:00 [facility] Influenza Virus 2012-10-30 Completed [facility] Vaccine 00:00:00 [facility] Influenza Virus 2012-10-30 Completed [facility] Vaccine 00:00:00 [facility] Influenza Virus 2012-10-30 Completed [facility] Vaccine 00:00:00 [facility] Influenza Virus 2012-10-30 Completed [facility] Vaccine 00:00:00 [facility] Influenza Virus 2012-10-30 Completed [facility] Vaccine 00:00:00 [facility] Influenza Virus 2012-10-30 Completed [facility] Vaccine 00:00:00 [facility] Influenza Virus 2012-10-30 Completed [facility] Vaccine 00:00:00 [facility] Influenza Virus 2012-10-30 Completed [facility] Vaccine 00:00:00 [facility] Influenza Virus 2012-10-30 Completed [facility] Vaccine 00:00:00 [facility] Influenza Virus 2012-10-30 Completed [facility] Vaccine 00:00:00 [facility] Influenza Virus 2012-10-30 Completed [facility] Vaccine 00:00:00 [facility] Influenza Virus 2012-10-30 Completed [facility] Vaccine 00:00:00 [facility] Influenza Virus 2012-10-30 Completed [facility] Vaccine 00:00:00 [facility] Influenza Virus 2012-10-30 Completed [facility] Vaccine 00:00:00 [facility] Influenza Virus 2012-10-30 Completed [facility] Vaccine 00:00:00 [facility] Influenza Virus 2012-10-30 Completed [facility] Vaccine 00:00:00 [facility] Influenza Virus 2012-10-30 Completed [facility] Vaccine 00:00:00 [facility] Influenza Virus 2012-10-30 Completed [facility] Vaccine 00:00:00 [facility] Influenza Virus 2012-10-30 Completed [facility] Vaccine 00:00:00 [facility] Influenza Virus 2012-10-30 Completed [facility] Vaccine 00:00:00 [facility] Influenza Virus 2012-10-30 Completed [facility] Vaccine 00:00:00 [facility] Influenza Virus 2012-10-30 Completed [facility] Vaccine 00:00:00 [facility] Influenza Virus 2012-10-30 Completed [facility] Vaccine 00:00:00 [facility] Influenza Virus 2012-10-30 Completed [facility] Vaccine 00:00:00 [facility] Influenza Virus 2012-10-30 Completed [facility] Vaccine 00:00:00 [facility] Influenza Virus 2012-10-30 Completed [facility] Vaccine 00:00:00 [facility] Influenza Virus 2012-10-30 Completed [facility] Vaccine 00:00:00 [facility] Influenza Virus 2012-10-30 Completed [facility] Vaccine 00:00:00 [facility] Influenza Virus 2012-10-30 Completed [facility] Vaccine 00:00:00 [facility] Influenza Virus 2012-10-30 Completed [facility] Vaccine 00:00:00 [facility] Influenza Virus 2012-10-30 Completed [facility] Vaccine 00:00:00 [facility] Influenza Virus 2012-10-30 Completed [facility] Vaccine 00:00:00 [facility] Influenza Virus 2012-10-30 Completed [facility] Vaccine 00:00:00 [facility] Influenza Virus 2012-10-30 Completed [facility] Vaccine 00:00:00 [facility] Influenza Virus 2012-10-30 Completed [facility] Vaccine 00:00:00 [facility] Influenza Virus 2012-10-30 Completed [facility] Vaccine 00:00:00 [facility] Influenza Virus 2012-10-30 Completed [facility] Vaccine 00:00:00 [facility] Influenza Virus 2012-10-30 Completed [facility] Vaccine 00:00:00 [facility] Influenza Virus 2012-10-30 Completed [facility] Vaccine 00:00:00 [facility] Influenza Virus 2012-10-30 Completed [facility] Vaccine 00:00:00 [facility] Influenza Virus 2012-10-30 Completed [facility] Vaccine 00:00:00 [facility] Influenza Virus 2012-10-30 Completed [facility] Vaccine 00:00:00 [facility] Influenza Virus 2011-08-22 Completed [facility] Vaccine 00:00:00 [facility] Influenza Virus 2011-08-22 Completed [facility] Vaccine 00:00:00 [facility] Influenza Virus 2011-08-22 Completed [facility] Vaccine 00:00:00 [facility] Influenza Virus 2011-08-22 Completed [facility] Vaccine 00:00:00 [facility] Influenza Virus 2011-08-22 Completed [facility] Vaccine 00:00:00 [facility] Influenza Virus 2011-08-22 Completed [facility] Vaccine 00:00:00 [facility] Influenza Virus 2011-08-22 Completed [facility] Vaccine 00:00:00 [facility] Influenza Virus 2011-08-22 Completed [facility] Vaccine 00:00:00 [facility] Influenza Virus 2011-08-22 Completed [facility] Vaccine 00:00:00 [facility] Influenza Virus 2011-08-22 Completed [facility] Vaccine 00:00:00 [facility] Influenza Virus 2011-08-22 Completed [facility] Vaccine 00:00:00 [facility] Influenza Virus 2011-08-22 Completed [facility] Vaccine 00:00:00 [facility] Influenza Virus 2011-08-22 Completed [facility] Vaccine 00:00:00 [facility] Influenza Virus 2011-08-22 Completed [facility] Vaccine 00:00:00 [facility] Influenza Virus 2011-08-22 Completed [facility] Vaccine 00:00:00 [facility] Influenza Virus 2011-08-22 Completed [facility] Vaccine 00:00:00 [facility] Influenza Virus 2011-08-22 Completed [facility] Vaccine 00:00:00 [facility] Influenza Virus 2011-08-22 Completed [facility] Vaccine 00:00:00 [facility] Influenza Virus 2011-08-22 Completed [facility] Vaccine 00:00:00 [facility] Influenza Virus 2011-08-22 Completed [facility] Vaccine 00:00:00 [facility] Influenza Virus 2011-08-22 Completed [facility] Vaccine 00:00:00 [facility] Influenza Virus 2011-08-22 Completed [facility] Vaccine 00:00:00 [facility] Influenza Virus 2011-08-22 Completed [facility] Vaccine 00:00:00 [facility] Influenza Virus 2011-08-22 Completed [facility] Vaccine 00:00:00 [facility] Influenza Virus 2011-08-22 Completed [facility] Vaccine 00:00:00 [facility] Influenza Virus 2011-08-22 Completed [facility] Vaccine 00:00:00 [facility] Influenza Virus 2011-08-22 Completed [facility] Vaccine 00:00:00 [facility] Influenza Virus 2011-08-22 Completed [facility] Vaccine 00:00:00 [facility] Influenza Virus 2011-08-22 Completed [facility] Vaccine 00:00:00 [facility] Influenza Virus 2011-08-22 Completed [facility] Vaccine 00:00:00 [facility] Influenza Virus 2011-08-22 Completed [facility] Vaccine 00:00:00 [facility] Influenza Virus 2011-08-22 Completed [facility] Vaccine 00:00:00 [facility] Influenza Virus 2011-08-22 Completed [facility] Vaccine 00:00:00 [facility] Influenza Virus 2011-08-22 Completed [facility] Vaccine 00:00:00 [facility] Influenza Virus 2011-08-22 Completed [facility] Vaccine 00:00:00 [facility] Influenza Virus 2011-08-22 Completed [facility] Vaccine 00:00:00 [facility] Influenza Virus 2011-08-22 Completed [facility] Vaccine 00:00:00 [facility] Influenza Virus 2011-08-22 Completed [facility] Vaccine 00:00:00 [facility] Influenza Virus 2011-08-22 Completed [facility] Vaccine 00:00:00 [facility] Influenza Virus 2011-08-22 Completed [facility] Vaccine 00:00:00 [facility] Influenza Virus 2011-08-22 Completed [facility] Vaccine 00:00:00 [facility] Influenza Virus 2011-08-22 Completed [facility] Vaccine 00:00:00 [facility] Influenza Virus 2011-08-22 Completed [facility] Vaccine 00:00:00 [facility] Influenza Virus 2011-08-22 Completed [facility] Vaccine 00:00:00 [facility] Influenza Virus 2011-08-22 Completed [facility] Vaccine 00:00:00 [facility] Influenza Virus 2011-08-22 Completed [facility] Vaccine 00:00:00 [facility] Influenza Virus 2011-08-22 Completed [facility] Vaccine 00:00:00 [facility] Influenza Virus 2011-08-22 Completed [facility] Vaccine 00:00:00 [facility] Influenza Virus 2011-08-22 Completed [facility] Vaccine 00:00:00 [facility] Influenza Virus 2011-08-22 Completed [facility] Vaccine 00:00:00 [facility] Influenza Virus 2011-08-22 Completed [facility] Vaccine 00:00:00 [facility] Influenza Virus 2011-08-22 Completed [facility] Vaccine 00:00:00 [facility] Influenza Virus 2011-08-22 Completed [facility] Vaccine 00:00:00 [facility] Influenza Virus 2011-08-22 Completed [facility] Vaccine 00:00:00 [facility] Influenza Virus 2011-08-22 Completed [facility] Vaccine 00:00:00 [facility] Influenza Virus 2011-08-22 Completed [facility] Vaccine 00:00:00 [facility] Influenza Virus 2011-08-22 Completed [facility] Vaccine 00:00:00 [facility] Influenza Virus 2011-08-22 Completed [facility] Vaccine 00:00:00 [facility] Influenza Virus 2011-08-22 Completed [facility] Vaccine 00:00:00 [facility] Influenza Virus 2011-08-22 Completed [facility] Vaccine 00[facility]00:00 [facility] Influenza Virus 2011-08-22 Completed [facility] Vaccine 00:00:00 [facility] Influenza Virus 2011-08-22 Completed [facility] Vaccine 00:00:00 [facility] Influenza Virus 2011-08-22 Completed [facility] Vaccine 00[facility]00:00 [facility] Influenza Virus 2011-08-22 Completed [facility] Vaccine 00:00:00 [facility] Influenza Virus 2011-08-22 Completed [facility] Vaccine 00:00:00 [facility] Influenza Virus 2011-08-22 Completed [facility] Vaccine 00:00:00 [facility] Influenza Virus 2011-08-22 Completed [facility] Vaccine 00:00:00 [facility] Influenza Virus 2011-08-22 Completed [facility] Vaccine 00:00:00 [facility] Influenza Virus 2011-08-22 Completed [facility] Vaccine 00:00:00 [facility] Influenza Virus 2011-08-22 Completed [facility] Vaccine 00:00:00 [facility] Influenza Virus 2011-08-22 Completed [facility] Vaccine 00[facility]00:00 [facility] Influenza Virus 2011-08-22 Completed [facility] Vaccine 00:00:00 [facility] Influenza Virus 2011-08-22 Completed [facility] Vaccine 00:00:00 [facility] Influenza Virus 2011-08-22 Completed [facility] Vaccine 00:00:00 [facility] Influenza Virus 2011-08-22 Completed [facility] Vaccine 00:00:00 [facility] Influenza Virus 2011-08-22 Completed [facility] Vaccine 00:00:00 [facility] Influenza Virus 2011-08-22 Completed [facility] Vaccine 00:00:00 [facility] Influenza Virus 2011-08-22 Completed [facility] Vaccine 00[facility]00:00 [facility] Influenza Virus 2011-08-22 Completed [facility] Vaccine 00:00:00 [facility] Influenza Virus 2011-08-22 Completed [facility] Vaccine 00:00:00 [facility] Influenza Virus 2011-08-22 Completed [facility] Vaccine 00:00:00 [facility] Influenza Virus 2011-08-22 Completed [facility] Vaccine 00[facility]00:00 [facility] Influenza Virus 2011-08-22 Completed [facility] Vaccine 00:00:00 [facility] Influenza Virus 2011-08-22 Completed [facility] Vaccine 00:00:00 [facility] Influenza Virus 2011-08-22 Completed [facility] Vaccine 00[facility]00:00 [facility] Influenza Virus 2011-08-22 Completed [facility] Vaccine 00:00:00 [facility] Influenza Virus 2011-08-22 Completed [facility] Vaccine 00[facility]00:00 [facility] Influenza Virus 2011-08-22 Completed [facility] Vaccine 00:00:00 [facility] Influenza Virus 2011-08-22 Completed [facility] Vaccine 00[facility]00:00 [facility] Influenza Virus 2010-08-26 Completed [facility] Vaccine 00:00:00 [facility] Influenza Virus 2010-08-26 Completed [facility] Vaccine 00:00:00 [facility] Influenza Virus 2010-08-26 Completed [facility] Vaccine 00:00:00 [facility] Influenza Virus 2010-08-26 Completed [facility] Vaccine 00:00:00 [facility] Influenza Virus 2010-08-26 Completed [facility] Vaccine 00:00:00 [facility] Influenza Virus 2010-08-26 Completed [facility] Vaccine 00:00:00 [facility] Influenza Virus 2010-08-26 Completed [facility] Vaccine 00:00:00 [facility] Influenza Virus 2010-08-26 Completed [facility] Vaccine 00:00:00 [facility] Influenza Virus 2010-08-26 Completed [facility] Vaccine 00:00:00 [facility] Influenza Virus 2010-08-26 Completed [facility] Vaccine 00:00:00 [facility] Influenza Virus 2010-08-26 Completed [facility] Vaccine 00:00:00 [facility] Influenza Virus 2010-08-26 Completed [facility] Vaccine 00:00:00 [facility] Influenza Virus 2010-08-26 Completed [facility] Vaccine 00:00:00 [facility] Influenza Virus 2010-08-26 Completed [facility] Vaccine 00:00:00 [facility] Influenza Virus 2010-08-26 Completed [facility] Vaccine 00:00:00 [facility] Influenza Virus 2010-08-26 Completed [facility] Vaccine 00:00:00 [facility] Influenza Virus 2010-08-26 Completed [facility] Vaccine 00:00:00 [facility] Influenza Virus 2010-08-26 Completed [facility] Vaccine 00:00:00 [facility] Influenza Virus 2010-08-26 Completed [facility] Vaccine 00:00:00 [facility] Influenza Virus 2010-08-26 Completed [facility] Vaccine 00:00:00 [facility] Influenza Virus 2010-08-26 Completed [facility] Vaccine 00[facility]00:00 [facility] Influenza Virus 2010-08-26 Completed [facility] Vaccine 00:00:00 [facility] Influenza Virus 2010-08-26 Completed [facility] Vaccine 00:00:00 [facility] Influenza Virus 2010-08-26 Completed [facility] Vaccine 00[facility]00:00 [facility] Influenza Virus 2010-08-26 Completed [facility] Vaccine 00:00:00 [facility] Influenza Virus 2010-08-26 Completed [facility] Vaccine 00:00:00 [facility] Influenza Virus 2010-08-26 Completed [facility] Vaccine 00:00:00 [facility] Influenza Virus 2010-08-26 Completed [facility] Vaccine 00:00:00 [facility] Influenza Virus 2010-08-26 Completed [facility] Vaccine 00:00:00 [facility] Influenza Virus 2010-08-26 Completed [facility] Vaccine 00:00:00 [facility] Influenza Virus 2010-08-26 Completed [facility] Vaccine 00:00:00 [facility] Influenza Virus 2010-08-26 Completed [facility] Vaccine 00:00:00 [facility] Influenza Virus 2010-08-26 Completed [facility] Vaccine 00:00:00 [facility] Influenza Virus 2010-08-26 Completed [facility] Vaccine 00:00:00 [facility] Influenza Virus 2010-08-26 Completed [facility] Vaccine 00:00:00 [facility] Influenza Virus 2010-08-26 Completed [facility] Vaccine 00:00:00 [facility] Influenza Virus 2010-08-26 Completed [facility] Vaccine 00:00:00 [facility] Influenza Virus 2010-08-26 Completed [facility] Vaccine 00:00:00 [facility] Influenza Virus 2010-08-26 Completed [facility] Vaccine 00:00:00 [facility] Influenza Virus 2010-08-26 Completed [facility] Vaccine 00:00:00 [facility] Influenza Virus 2010-08-26 Completed [facility] Vaccine 00:00:00 [facility] Influenza Virus 2010-08-26 Completed [facility] Vaccine 00:00:00 [facility] Influenza Virus 2010-08-26 Completed [facility] Vaccine 00:00:00 [facility] Influenza Virus 2010-08-26 Completed [facility] Vaccine 00:00:00 [facility] Influenza Virus 2010-08-26 Completed [facility] Vaccine 00:00:00 [facility] Influenza Virus 2010-08-26 Completed [facility] Vaccine 00:00:00 [facility] Influenza Virus 2010-08-26 Completed [facility] Vaccine 00:00:00 [facility] Influenza Virus 2010-08-26 Completed [facility] Vaccine 00:00:00 [facility] Influenza Virus 2010-08-26 Completed [facility] Vaccine 00:00:00 [facility] Influenza Virus 2010-08-26 Completed [facility] Vaccine 00:00:00 [facility] Influenza Virus 2010-08-26 Completed [facility] Vaccine 00:00:00 [facility] Influenza Virus 2010-08-26 Completed [facility] Vaccine 00:00:00 [facility] Influenza Virus 2010-08-26 Completed [facility] Vaccine 00:00:00 [facility] Influenza Virus 2010-08-26 Completed [facility] Vaccine 00:00:00 [facility] Influenza Virus 2010-08-26 Completed [facility] Vaccine 00:00:00 [facility] Influenza Virus 2010-08-26 Completed [facility] Vaccine 00:00:00 [facility] Influenza Virus 2010-08-26 Completed [facility] Vaccine 00:00:00 [facility] Influenza Virus 2010-08-26 Completed [facility] Vaccine 00:00:00 [facility] Influenza Virus 2010-08-26 Completed [facility] Vaccine 00:00:00 [facility] Influenza Virus 2010-08-26 Completed [facility] Vaccine 00:00:00 [facility] Influenza Virus 2010-08-26 Completed [facility] Vaccine 00:00:00 [facility] Influenza Virus 2010-08-26 Completed [facility] Vaccine 00:00:00 [facility] Influenza Virus 2010-08-26 Completed [facility] Vaccine 00:00:00 [facility] Influenza Virus 2010-08-26 Completed [facility] Vaccine 00:00:00 [facility] Influenza Virus 2010-08-26 Completed [facility] Vaccine 00:00:00 [facility] Influenza Virus 2010-08-26 Completed [facility] Vaccine 00:00:00 [facility] Influenza Virus 2010-08-26 Completed [facility] Vaccine 00:00:00 [facility] Influenza Virus 2010-08-26 Completed [facility] Vaccine 00:00:00 [facility] Influenza Virus 2010-08-26 Completed [facility] Vaccine 00:00:00 [facility] Influenza Virus 2010-08-26 Completed [facility] Vaccine 00:00:00 [facility] Influenza Virus 2010-08-26 Completed [facility] Vaccine 00:00:00 [facility] Influenza Virus 2010-08-26 Completed [facility] Vaccine 00:00:00 [facility] Influenza Virus 2010-08-26 Completed [facility] Vaccine 00:00:00 [facility] Influenza Virus 2010-08-26 Completed [facility] Vaccine 00:00:00 [facility] Influenza Virus 2010-08-26 Completed [facility] Vaccine 00:00:00 [facility] Influenza Virus 2010-08-26 Completed [facility] Vaccine 00:00:00 [facility] Influenza Virus 2010-08-26 Completed [facility] Vaccine 00:00:00 [facility] Influenza Virus 2010-08-26 Completed [facility] Vaccine 00:00:00 [facility] Influenza Virus 2010-08-26 Completed [facility] Vaccine 00:00:00 [facility] Influenza Virus 2010-08-26 Completed [facility] Vaccine 00:00:00 [facility] Influenza Virus 2010-08-26 Completed [facility] Vaccine 00:00:00 [facility] Influenza Virus 2010-08-26 Completed [facility] Vaccine 00:00:00 [facility] Influenza Virus 2010-08-26 Completed [facility] Vaccine 00:00:00 [facility] Influenza Virus 2010-08-26 Completed [facility] Vaccine 00:00:00 [facility] Influenza Virus 2010-08-26 Completed [facility] Vaccine 00:00:00 [facility] Influenza Virus 2010-08-26 Completed [facility] Vaccine 00:00:00 [facility] Influenza Virus 2010-08-26 Completed [facility] Vaccine 00:00:00 [facility] Influenza Virus 2010-08-26 Completed [facility] Vaccine 00:00:00 [facility] Influenza Virus 2010-08-26 Completed [facility] Vaccine 00:00:00 [facility] H1n1 Vaccine 2009-10-26 Completed [facility] f 00:00:00 [facility] H1n1 Vaccine 2009-10-26 Completed [facility] 00:00:00 [facility] H1n1 Vaccine 2009-10-26 Completed [facility] f 00:00:00 [facility] H1n1 Vaccine 2009-10-26 Completed [facility] f 00:00:00 [facility] H1n1 Vaccine 2009-10-26 Completed [facility] f 00:00:00 [facility] H1n1 Vaccine 2009-10-26 Completed [facility] f 00:00:00 [facility] H1n1 Vaccine 2009-10-26 Completed [facility] f 00:00:00 [facility] H1n1 Vaccine 2009-10-26 Completed [facility] f 00:00:00 [facility] H1n1 Vaccine 2009-10-26 Completed [facility] f 00:00:00 [facility] H1n1 Vaccine 2009-10-26 Completed [facility] f 00:00:00 [facility] H1n1 Vaccine 2009-10-26 Completed [facility] f 00:00:00 [facility] H1n1 Vaccine 2009-10-26 Completed [facility] f 00:00:00 [facility] H1n1 Vaccine 2009-10-26 Completed [facility] [...] Vaccine 2009-09-15 Completed [facility] 00:00:00 [facility] H1n1 Vaccine 2009-09-15 Completed [facility] f 00:00:00 [facility] H1n1 Vaccine 2009-09-15 Completed [facility] f 00:00:00 [facility] H1n1 Vaccine 2009-09-15 Completed [facility] f 00:00:00 [facility] H1n1 Vaccine 2009-09-15 Completed [facility] f 00:00:00 [facility] H1n1 Vaccine 2009-09-15 Completed [facility] f 00:00:00 [facility] H1n1 Vaccine 2009-09-15 Completed [facility] f 00:00:00 [facility] H1n1 Vaccine 2009-09-15 Completed [facility] f 00:00:00 [facility] MMR 2007-07-04 Completed [facility] of 00:00:00 [facility] Polio (IPV/OPV) 2007-07-04 Completed [facility] 00:00:00 [facility] MMR 2007-07-04 Completed [facility] 00:00:00 [facility] Polio (IPV/OPV) 2007-07-04 Completed [facility] 00:00:00 [facility] MMR 2007-07-04 Completed [facility] 00:00:00 [facility] Polio (IPV/OPV) 2007-07-04 Completed [facility] 00:00:00 [facility] MMR 2007-07-04 Completed [facility] 00:00:00 [facility] Polio (IPV/OPV) 2007-07-04 Completed [facility] 00:00:00 [facility] MMR 2007-07-04 Completed [facility] 00:00:00 [facility] Polio (IPV/OPV) 2007-07-04 Completed [facility] 00:00:00 [facility] MMR 2007-07-04 Completed [facility] 00:00:00 [facility] Polio (IPV/OPV) 2007-07-04 Completed [facility] 00:00:00 [facility] MMR 2007-07-04 Completed [facility] 00:00:00 [facility] Polio (IPV/OPV) 2007-07-04 Completed [facility] 00:00:00 [facility] MMR 2007-07-04 Completed [facility] of 00:00:00 [facility] Polio (IPV/OPV) 2007-07-04 Completed [facility] 00:00:00 [facility] MMR 2007-07-04 Completed [facility] 00:00:00 [facility] Polio (IPV/OPV) 2007-07-04 Completed [facility] 00:00:00 [facility] 2007-07-04 Completed [facility] 00:00:00 [facility] Polio (IPV/OPV) 2007-07-04 Completed [facility] 00:00:00 [facility] 2007-07-04 Completed [facility] 00:00:00 [facility] Polio (IPV/OPV) 2007-07-04 Completed [facility] 00:00:00 [facility] 2007-07-04 Completed [facility] 00:00:00 [facility] Polio (IPV/OPV) 2007-07-04 Completed [facility] 00:00:00 [facility] 2007-07-04 Completed [facility] 00:00:00 [facility] Polio (IPV/OPV) 2007-07-04 Completed [facility] 00:00:00 [facility] 2007-07-04 Completed [facility] 00:00:00 [facility] Polio (IPV/OPV) 2007-07-04 Completed [facility] 00:00:00 [facility] 2007-07-04 Completed [facility] 00:00:00 [facility] Polio (IPV/OPV) 2007-07-04 Completed [facility] 00:00:00 [facility] 2007-07-04 Completed [facility] 00:00:00 [facility] Polio (IPV/OPV) 2007-07-04 Completed [facility] 00:00:00 [facility] 2007-07-04 Completed [facility] 00:00:00 [facility] Polio (IPV/OPV) 2007-07-04 Completed [facility] 00:00:00 [facility] 2007-07-04 Completed [facility] 00:00:00 [facility] Polio (IPV/OPV) 2007-07-04 Completed [facility] 00:00:00 [facility] 2007-07-04 Completed [facility] 00:00:00 [facility] Polio (IPV/OPV) 2007-07-04 Completed [facility] 00:00:00 [facility] 2007-07-04 Completed [facility] 00:00:00 [facility] Polio (IPV/OPV) 2007-07-04 Completed [facility] 00:00:00 [facility] 2007-07-04 Completed [facility] 00:00:00 [facility] Polio (IPV/OPV) 2007-07-04 Completed [facility] 00:00:00 [facility] 2007-07-04 Completed [facility] of 00:00:00 [facility] Polio (IPV/OPV) 2007-07-04 Completed [facility] 00:00:00 [facility] 2007-07-04 Completed [facility] 00:00:00 [facility] Polio (IPV/OPV) 2007-07-04 Completed [facility] 00:00:00 [facility] 2007-07-04 Completed [facility] 00:00:00 [facility] Polio (IPV/OPV) 2007-07-04 Completed [facility] 00:00:00 [facility] 2007-07-04 Completed [facility] 00:00:00 [facility] Polio (IPV/OPV) 2007-07-04 Completed [facility] 00:00:00 [facility] 2007-07-04 Completed [facility] 00:00:00 [facility] Polio (IPV/OPV) 2007-07-04 Completed [facility] 00:00:00 [facility] 2007-07-04 Completed [facility] 00:00:00 [facility] Polio (IPV/OPV) 2007-07-04 Completed [facility] 00:00:00 [facility] 2007-07-04 Completed [facility] 00:00:00 [facility] Polio (IPV/OPV) 2007-07-04 Completed [facility] 00:00:00 [facility] 2007-07-04 Completed [facility] of 00:00:00 [facility] Polio (IPV/OPV) 2007-07-04 Completed [facility] 00:00:00 [facility] 2007-07-04 Completed [facility] 00:00:00 [facility] Polio (IPV/OPV) 2007-07-04 Completed [facility] 00:00:00 [facility] 2007-07-04 Completed [facility] of 00:00:00 [facility] Polio (IPV/OPV) 2007-07-04 Completed [facility] 00:00:00 [facility] 2007-07-04 Completed [facility] 00:00:00 [facility] Polio (IPV/OPV) 2007-07-04 Completed [facility] 00:00:00 [facility] 2007-07-04 Completed [facility] of 00:00:00 [facility] Polio (IPV/OPV) 2007-07-04 Completed [facility] 00:00:00 [facility] 2007-07-04 Completed [facility] 00:00:00 [facility] Polio (IPV/OPV) 2007-07-04 Completed [facility] 00:00:00 [facility] 2007-07-04 Completed [facility] 00:00:00 [facility] Polio (IPV/OPV) 2007-07-04 Completed [facility] 00:00:00 [facility] 2007-07-04 Completed [facility] 00:00:00 [facility] 2007-07-04 Completed [facility] 00:00:00 [facility] Polio (IPV/OPV) 2007-07-04 Completed [facility] 00:00:00 [facility] Polio (IPV/OPV) 2007-07-04 Completed [facility] 00:00:00 [facility] 2007-07-04 Completed [facility] 00:00:00 [facility] Polio (IPV/OPV) 2007-07-04 Completed [facility] 00:00:00 [facility] 2007-07-04 Completed [facility] 00:00:00 [facility] Polio (IPV/OPV) 2007-07-04 Completed [facility] 00:00:00 [facility] 2007-07-04 Completed [facility] 00:00:00 [facility] Polio (IPV/OPV) 2007-07-04 Completed [facility] 00:00:00 [facility] 2007-07-04 Completed [facility] 00:00:00 [facility] Polio (IPV/OPV) 2007-07-04 Completed [facility] 00:00:00 [facility] 2007-07-04 Completed [facility] 00:00:00 [facility] Polio (IPV/OPV) 2007-07-04 Completed [facility] 00:00:00 [facility] 2007-07-04 Completed [facility] 00:00:00 [facility] Polio (IPV/OPV) 2007-07-04 Completed [facility] 00:00:00 [facility] 2007-07-04 Completed [facility] 00:00:00 [facility] Polio (IPV/OPV) 2007-07-04 Completed [facility] 00:00:00 [facility] 2007-07-04 Completed [facility] 00:00:00 [facility] Polio (IPV/OPV) 2007-07-04 Completed [facility] 00:00:00 [facility] 2007-07-04 Completed [facility] of 00:00:00 [facility] Polio (IPV/OPV) 2007-07-04 Completed [facility] 00:00:00 [facility] 2007-07-04 Completed [facility] 00:00:00 [facility] Polio (IPV/OPV) 2007-07-04 Completed [facility] 00:00:00 [facility] 2007-07-04 Completed [facility] of 00:00:00 [facility] Polio (IPV/OPV) 2007-07-04 Completed [facility] 00:00:00 [facility] 2007-07-04 Completed [facility] 00:00:00 [facility] Polio (IPV/OPV) 2007-07-04 Completed [facility] 00:00:00 [facility] 2007-07-04 Completed [facility] 00:00:00 [facility] Polio (IPV/OPV) 2007-07-04 Completed [facility] 00:00:00 [facility] 2007-07-04 Completed [facility] 00:00:00 [facility] Polio (IPV/OPV) 2007-07-04 Completed [facility] 00:00:00 [facility] 2007-07-04 Completed [facility] 00:00:00 [facility] Polio (IPV/OPV) 2007-07-04 Completed [facility] 00:00:00 [facility] 2007-07-04 Completed [facility] 00:00:00 [facility] Polio (IPV/OPV) 2007-07-04 Completed [facility] 00:00:00 [facility] 2007-07-04 Completed [facility] 00:00:00 [facility] Polio (IPV/OPV) 2007-07-04 Completed [facility] 00:00:00 [facility] 2007-07-04 Completed [facility] 00:00:00 [facility] Polio (IPV/OPV) 2007-07-04 Completed [facility] 00:00:00 [facility] 2007-07-04 Completed [facility] 00:00:00 [facility] Polio (IPV/OPV) 2007-07-04 Completed [facility] 00:00:00 [facility] 2007-07-04 Completed [facility] 00:00:00 [facility] Polio (IPV/OPV) 2007-07-04 Completed [facility] 00:00:00 [facility] 2007-07-04 Completed [facility] 00:00:00 [facility] 2007-07-04 Completed [facility] 00:00:00 [facility] Polio (IPV/OPV) 2007-07-04 Completed [facility] 00:00:00 [facility] Polio (IPV/OPV) 2007-07-04 Completed [facility] 00:00:00 [facility] 2007-07-04 Completed [facility] 00:00:00 [facility] Polio (IPV/OPV) 2007-07-04 Completed [facility] 00:00:00 [facility] 2007-07-04 Completed [facility] 00[facility]00:00 [facility] Polio (IPV/OPV) 2007-07-04 Completed [facility] 00:00:00 [facility] 2007-07-04 Completed [facility] 00:00:00 [facility] Polio (IPV/OPV) 2007-07-04 Completed [facility] 00:00:00 [facility] 2007-07-04 Completed [facility] 00[facility]00:00 [facility] Polio (IPV/OPV) 2007-07-04 Completed [facility] 00:00:00 [facility] 2007-07-04 Completed [facility] 00:00:00 [facility] Polio (IPV/OPV) 2007-07-04 Completed [facility] 00:00:00 [facility] 2007-07-04 Completed [facility] 00[facility]00:00 [facility] Polio (IPV/OPV) 2007-07-04 Completed [facility] 00:00:00 [facility] 2007-07-04 Completed [facility] 00:00:00 [facility] Polio (IPV/OPV) 2007-07-04 Completed [facility] 00:00:00 [facility] 2007-07-04 Completed [facility] 00:00:00 [facility] Polio (IPV/OPV) 2007-07-04 Completed [facility] 00:00:00 [facility] 2007-07-04 Completed [facility] 00:00:00 [facility] Polio (IPV/OPV) 2007-07-04 Completed [facility] 00:00:00 [facility] 2007-07-04 Completed [facility] 00:00:00 [facility] Polio (IPV/OPV) 2007-07-04 Completed [facility] 00:00:00 [facility] 2007-07-04 Completed [facility] 00:00:00 [facility] Polio (IPV/OPV) 2007-07-04 Completed [facility] 00:00:00 [facility] 2007-07-04 Completed [facility] 00:00:00 [facility] Polio (IPV/OPV) 2007-07-04 Completed [facility] 00:00:00 [facility] 2007-07-04 Completed [facility] 00:00:00 [facility] Polio (IPV/OPV) 2007-07-04 Completed [facility] 00:00:00 [facility] 2007-07-04 Completed [facility] 00[facility]00:00 [facility] Polio (IPV/OPV) 2007-07-04 Completed [facility] 00:00:00 [facility] 2007-07-04 Completed [facility] 00[facility]00:00 [facility] Polio (IPV/OPV) 2007-07-04 Completed [facility] 00:00:00 [facility] 2007-07-04 Completed [facility] 00:00:00 [facility] Polio (IPV/OPV) 2007-07-04 Completed [facility] 00:00:00 [facility] 2007-07-04 Completed [facility] 00:00:00 [facility] Polio (IPV/OPV) 2007-07-04 Completed [facility] 00:00:00 [facility] 2007-07-04 Completed [facility] 00:00:00 [facility] Polio (IPV/OPV) 2007-07-04 Completed [facility] 00:00:00 [facility] 2007-07-04 Completed [facility] 00:00:00 [facility] Polio (IPV/OPV) 2007-07-04 Completed [facility] 00:00:00 [facility] 2007-07-04 Completed [facility] 00[facility]00:00 [facility] Polio (IPV/OPV) 2007-07-04 Completed [facility] 00:00:00 [facility] MMR 2007-07-04 Completed [facility] 00:00:00 [facility] Polio (IPV/OPV) 2007-07-04 Completed [facility] 00:00:00 [facility] MMR 2007-07-04 Completed [facility] 00:00:00 [facility] Polio (IPV/OPV) 2007-07-04 Completed [facility] 00:00:00 [facility] MMR 2007-07-04 Completed [facility] 00:00:00 [facility] Polio (IPV/OPV) 2007-07-04 Completed [facility]00 [facility] MMR 2007-07-04 Completed [facility] 00:00:00 [facility] Polio (IPV/OPV) 2007-07-04 Completed [facility] 00:00:00 [facility] MMR 2007-07-04 Completed [facility] 00[facility]00:00 [facility] Polio (IPV/OPV) 2007-07-04 Completed [facility] 00:00:00 [facility] MMR 2007-07-04 Completed [facility] 00:00:00 [facility] Polio (IPV/OPV) 2007-07-04 Completed [facility] 00[facility]00:00 [facility] MMR 2007-07-04 Completed [facility] 00:00:00 [facility] Polio (IPV/OPV) 2007-07-04 Completed [facility] 00:00:00 [facility] MMR 2007-07-04 Completed [facility] 00:00:00 [facility] Polio (IPV/OPV) 2007-07-04 Completed [facility] 00:00:00 [facility] Influenza Virus 2006-09-28 Completed [facility] Vaccine 00:00:00 [facility] Influenza Virus 2006-09-28 Completed [facility] Vaccine 00:00:00 [facility] Influenza Virus 2006-09-28 Completed [facility] Vaccine 00:00:00 [facility] Influenza Virus 2006-09-28 Completed [facility] Vaccine 00:00:00 [facility] Influenza Virus 2006-09-28 Completed [facility] Vaccine 00:00:00 [facility] Influenza Virus 2006-09-28 Completed [facility] Vaccine 00:00:00 [facility] Influenza Virus 2006-09-28 Completed [facility] Vaccine 00:00:00 [facility] Influenza Virus 2006-09-28 Completed [facility] Vaccine 00:00:00 [facility] Influenza Virus 2006-09-28 Completed [facility] Vaccine 00:00:00 [facility] Influenza Virus 2006-09-28 Completed [facility] Vaccine 00:00:00 [facility] Influenza Virus 2006-09-28 Completed [facility] Vaccine 00:00:00 [facility] Influenza Virus 2006-09-28 Completed [facility] Vaccine 00:00:00 [facility] Influenza Virus 2006-09-28 Completed [facility] Vaccine 00:00:00 [facility] Influenza Virus 2006-09-28 Completed [facility] Vaccine 00:00:00 [facility] Influenza Virus 2006-09-28 Completed [facility] Vaccine 00:00:00 [facility] Influenza Virus 2006-09-28 Completed [facility] Vaccine 00:00:00 [facility] Influenza Virus 2006-09-28 Completed [facility] Vaccine 00:00:00 [facility] Influenza Virus 2006-09-28 Completed [facility] Vaccine 00:00:00 [facility] Influenza Virus 2006-09-28 Completed [facility] Vaccine 00:00:00 [facility] Influenza Virus 2006-09-28 Completed [facility] Vaccine 00:00:00 [facility] Influenza Virus 2006-09-28 Completed [facility] Vaccine 00:00:00 [facility] Influenza Virus 2006-09-28 Completed [facility] Vaccine 00:00:00 [facility] Influenza Virus 2006-09-28 Completed [facility] Vaccine 00:00:00 [facility] Influenza Virus 2006-09-28 Completed [facility] Vaccine 00:00:00 [facility] Influenza Virus 2006-09-28 Completed [facility] Vaccine 00:00:00 [facility] Influenza Virus 2006-09-28 Completed [facility] Vaccine 00:00:00 [facility] Influenza Virus 2006-09-28 Completed [facility] Vaccine 00:00:00 [facility] Influenza Virus 2006-09-28 Completed [facility] Vaccine 00:00:00 [facility] Influenza Virus 2006-09-28 Completed [facility] Vaccine 00:00:00 [facility] Influenza Virus 2006-09-28 Completed [facility] Vaccine 00:00:00 [facility] Influenza Virus 2006-09-28 Completed [facility] Vaccine 00:00:00 [facility] Influenza Virus 2006-09-28 Completed [facility] Vaccine 00:00:00 [facility] Influenza Virus 2006-09-28 Completed [facility] Vaccine 00:00:00 [facility] Influenza Virus 2006-09-28 Completed [facility] Vaccine 00:00:00 [facility] Influenza Virus 2006-09-28 Completed [facility] Vaccine 00:00:00 [facility] Influenza Virus 2006-09-28 Completed [facility] Vaccine 00:00:00 [facility] Influenza Virus 2006-09-28 Completed [facility] Vaccine 00:00:00 [facility] Influenza Virus 2006-09-28 Completed [facility] Vaccine 00:00:00 [facility] Influenza Virus 2006-09-28 Completed [facility] Vaccine 00:00:00 [facility] Influenza Virus 2006-09-28 Completed [facility] Vaccine 00:00:00 [facility] Influenza Virus 2006-09-28 Completed [facility] Vaccine 00:00:00 [facility] Influenza Virus 2006-09-28 Completed [facility] Vaccine 00:00:00 [facility] Influenza Virus 2006-09-28 Completed [facility] Vaccine 00:00:00 [facility] Influenza Virus 2006-09-28 Completed [facility] Vaccine 00:00:00 [facility] Influenza Virus 2006-09-28 Completed [facility] Vaccine 00:00:00 [facility] Influenza Virus 2006-09-28 Completed [facility] Vaccine 00:00:00 [facility] Influenza Virus 2006-09-28 Completed [facility] Vaccine 00:00:00 [facility] Influenza Virus 2006-09-28 Completed [facility] Vaccine 00:00:00 [facility] Influenza Virus 2006-09-28 Completed [facility] Vaccine 00[facility]00:00 [facility] Influenza Virus 2006-09-28 Completed [facility] Vaccine 00:00:00 [facility] Influenza Virus 2006-09-28 Completed [facility] Vaccine 00:00:00 [facility] Influenza Virus 2006-09-28 Completed [facility] Vaccine 00:00:00 [facility] Influenza Virus 2006-09-28 Completed [facility] Vaccine 00:00:00 [facility] Influenza Virus 2006-09-28 Completed [facility] Vaccine 00:00:00 [facility] Influenza Virus 2006-09-28 Completed [facility] Vaccine 00:00:00 [facility] Influenza Virus 2006-09-28 Completed [facility] Vaccine 00:00:00 [facility] Influenza Virus 2006-09-28 Completed [facility] Vaccine 00:00:00 [facility] Influenza Virus 2006-09-28 Completed [facility] Vaccine 00:00:00 [facility] Influenza Virus 2006-09-28 Completed [facility] Vaccine 00:00:00 [facility] Influenza Virus 2006-09-28 Completed [facility] Vaccine 00:00:00 [facility] Influenza Virus 2006-09-28 Completed [facility] Vaccine 00:00:00 [facility] Influenza Virus 2006-09-28 Completed [facility] Vaccine 00:00:00 [facility] Influenza Virus 2006-09-28 Completed [facility] Vaccine 00:00:00 [facility] Influenza Virus 2006-09-28 Completed [facility] Vaccine 00:00:00 [facility] Influenza Virus 2006-09-28 Completed [facility] Vaccine 00:00:00 [facility] Influenza Virus 2006-09-28 Completed [facility] Vaccine 00:00:00 [facility] Influenza Virus 2006-09-28 Completed [facility] Vaccine 00:00:00 [facility] Influenza Virus 2006-09-28 Completed [facility] Vaccine 00:00:00 [facility] Influenza Virus 2006-09-28 Completed [facility] Vaccine 00:00:00 [facility] Influenza Virus 2006-09-28 Completed [facility] Vaccine 00:00:00 [facility] Influenza Virus 2006-09-28 Completed [facility] Vaccine 00:00:00 [facility] Influenza Virus 2006-09-28 Completed [facility] Vaccine 00:00:00 [facility] Influenza Virus 2006-09-28 Completed [facility] Vaccine 00:00:00 [facility] Influenza Virus 2006-09-28 Completed [facility] Vaccine 00:00:00 [facility] Influenza Virus 2006-09-28 Completed [facility] Vaccine 00:00:00 [facility] Influenza Virus 2006-09-28 Completed [facility] Vaccine 00:00:00 [facility] Influenza Virus 2006-09-28 Completed [facility] Vaccine 00:00:00 [facility] Influenza Virus 2006-09-28 Completed [facility] Vaccine 00:00:00 [facility] Influenza Virus 2006-09-28 Completed [facility] Vaccine 00:00:00 [facility] Influenza Virus 2006-09-28 Completed [facility] Vaccine 00:00:00 [facility] Influenza Virus 2006-09-28 Completed [facility] Vaccine 00:00:00 [facility] Influenza Virus 2006-09-28 Completed [facility] Vaccine 00:00:00 [facility] Influenza Virus 2006-09-28 Completed [facility] Vaccine 00:00:00 [facility] Influenza Virus 2006-09-28 Completed [facility] Vaccine 00:00:00 [facility] Influenza Virus 2006-09-28 Completed [facility] Vaccine 00:00:00 [facility] Influenza Virus 2006-09-28 Completed [facility] Vaccine 00:00:00 [facility] Influenza Virus 2006-09-28 Completed [facility] Vaccine 00:00:00 [facility] Influenza Virus 2006-09-28 Completed [facility] Vaccine 00:00:00 [facility] Influenza Virus 2006-09-28 Completed [facility] Vaccine 00[facility]00:00 [facility] HEPATITIS A 2006-02-07 Completed [facility] 00[facility]00:00 [facility] HEPATITIS A 2006-02-07 Completed [facility] 00:00:00 [facility] HEPATITIS A 2006-02-07 Completed [facility] 00:00:00 [facility] HEPATITIS A 2006-02-07 Completed [facility] 00:00:00 [facility] HEPATITIS A 2006-02-07 Completed [facility] 00:00:00 [facility] HEPATITIS A 2006-02-07 Completed [facility] 00:00:00 [facility] HEPATITIS A 2006-02-07 Completed [facility] 00:00:00 [facility] HEPATITIS A 2006-02-07 Completed [facility] 00:00:00 [facility] HEPATITIS A 2006-02-07 Completed [facility] 00:00:00 [facility] HEPATITIS A 2006-02-07 Completed [facility] 00:00:00 [facility] HEPATITIS A 2006-02-07 Completed [facility] 00:00:00 [facility] HEPATITIS A 2006-02-07 Completed [facility] 00:00:00 [facility] HEPATITIS A 2006-02-07 Completed [facility] 00:00:00 [facility] HEPATITIS A 2006-02-07 Completed [facility] 00:00:00 [facility] HEPATITIS A 2006-02-07 Completed [facility] 00:00:00 [facility] HEPATITIS A 2006-02-07 Completed [facility] 00:00:00 [facility] HEPATITIS A 2006-02-07 Completed [facility] 00:00:00 [facility] HEPATITIS A 2006-02-07 Completed [facility] 00:00:00 [facility] HEPATITIS A 2006-02-07 Completed [facility] 00:00:00 [facility] HEPATITIS A 2006-02-07 Completed [facility] 00:00:00 [facility] HEPATITIS A 2006-02-07 Completed [facility] 00:00:00 [facility] HEPATITIS A 2006-02-07 Completed [facility] 00:00:00 [facility] HEPATITIS A 2006-02-07 Completed [facility] 00:00:00 [facility] HEPATITIS A 2006-02-07 Completed [facility] 00:00:00 [facility] HEPATITIS A 2006-02-07 Completed [facility] 00:00:00 [facility] HEPATITIS A 2006-02-07 Completed [facility] 00:00:00 [facility] HEPATITIS A 2006-02-07 Completed [facility] 00:00:00 [facility] HEPATITIS A 2006-02-07 Completed [facility] 00:00:00 [facility] HEPATITIS A 2006-02-07 Completed [facility] 00:00:00 [facility] HEPATITIS A 2006-02-07 Completed [facility] 00:00:00 [facility] HEPATITIS A 2006-02-07 Completed [facility] 00:00:00 [facility] HEPATITIS A 2006-02-07 Completed [facility] 00:00:00 [facility] HEPATITIS A 2006-02-07 Completed [facility] 00:00:00 [facility] HEPATITIS A 2006-02-07 Completed [facility] 00:00:00 [facility] HEPATITIS A 2006-02-07 Completed [facility] 00:00:00 [facility] HEPATITIS A 2006-02-07 Completed [facility] 00:00:00 [facility] HEPATITIS A 2006-02-07 Completed [facility] 00:00:00 [facility] HEPATITIS A 2006-02-07 Completed [facility] 00:00:00 [facility] HEPATITIS A 2006-02-07 Completed [facility] 00:00:00 [facility] HEPATITIS A 2006-02-07 Completed [facility] 00:00:00 [facility] HEPATITIS A 2006-02-07 Completed [facility] 00:00:00 [facility] HEPATITIS A 2006-02-07 Completed [facility] 00:00:00 [facility] HEPATITIS A 2006-02-07 Completed [facility] 00:00:00 [facility] HEPATITIS A 2006-02-07 Completed [facility] 00:00:00 [facility] HEPATITIS A 2006-02-07 Completed [facility] 00:00:00 [facility] HEPATITIS A 2006-02-07 Completed [facility] 00:00:00 [facility] HEPATITIS A 2006-02-07 Completed [facility] 00:00:00 [facility] HEPATITIS A 2006-02-07 Completed [facility] 00:00:00 [facility] HEPATITIS A 2006-02-07 Completed [facility] 00:00:00 [facility] HEPATITIS A 2006-02-07 Completed [facility] 00:00:00 [facility] HEPATITIS A 2006-02-07 Completed [facility] 00:00:00 [facility] HEPATITIS A 2006-02-07 Completed [facility] 00:00:00 [facility] HEPATITIS A 2006-02-07 Completed [facility] 00:00:00 [facility] HEPATITIS A 2006-02-07 Completed [facility] 00:00:00 [facility] HEPATITIS A 2006-02-07 Completed [facility] 00:00:00 [facility] HEPATITIS A 2006-02-07 Completed [facility] 00:00:00 [facility] HEPATITIS A 2006-02-07 Completed [facility] 00:00:00 [facility] HEPATITIS A 2006-02-07 Completed [facility] 00:00:00 [facility] HEPATITIS A 2006-02-07 Completed [facility] 00:00:00 [facility] HEPATITIS A 2006-02-07 Completed [facility] 00:00:00 [facility] HEPATITIS A 2006-02-07 Completed [facility] 00:00:00 [facility] HEPATITIS A 2006-02-07 Completed [facility] 00:00:00 [facility] HEPATITIS A 2006-02-07 Completed [facility] 00:00:00 [facility] HEPATITIS A 2006-02-07 Completed [facility] 00:00:00 [facility] HEPATITIS A 2006-02-07 Completed [facility] 00:00:00 [facility] HEPATITIS A 2006-02-07 Completed [facility] 00:00:00 [facility] HEPATITIS A 2006-02-07 Completed [facility] 00:00:00 [facility] HEPATITIS A 2006-02-07 Completed [facility] 00:00:00 [facility] HEPATITIS A 2006-02-07 Completed [facility] 00:00:00 [facility] HEPATITIS A 2006-02-07 Completed [facility] 00:00:00 [facility] HEPATITIS A 2006-02-07 Completed [facility] 00:00:00 [facility] HEPATITIS A 2006-02-07 Completed [facility] 00:00:00 [facility] HEPATITIS A 2006-02-07 Completed [facility] 00:00:00 [facility] HEPATITIS A 2006-02-07 Completed [facility] 00:00:00 [facility] HEPATITIS A 2006-02-07 Completed [facility] 00:00:00 [facility] HEPATITIS A 2006-02-07 Completed [facility] 00:00:00 [facility] HEPATITIS A 2006-02-07 Completed [facility] 00:00:00 [facility] HEPATITIS A 2006-02-07 Completed [facility] 00:00:00 [facility] HEPATITIS A 2006-02-07 Completed [facility] 00:00:00 [facility] HEPATITIS A 2006-02-07 Completed [facility] 00:00:00 [facility] HEPATITIS A 2006-02-07 Completed [facility] 00:00:00 [facility] HEPATITIS A 2006-02-07 Completed [facility] 00:00:00 [facility] HEPATITIS A 2006-02-07 Completed [facility] 00:00:00 [facility] HEPATITIS A 2006-02-07 Completed [facility] 00:00:00 [facility] HEPATITIS A 2006-02-07 Completed [facility] 00:00:00 [facility] HEPATITIS A 2006-02-07 Completed [facility] 00:00:00 [facility] HEPATITIS A 2006-02-07 Completed [facility] 00:00:00 [facility] HEPATITIS A 2006-02-07 Completed [facility] 00:00:00 [facility] HEPATITIS A 2006-02-07 Completed [facility] 00:00:00 [facility] Influenza Virus 2005-09-12 Completed [facility] Vaccine 00:00:00 [facility] Influenza Virus 2005-09-12 Completed [facility] Vaccine 00:00:00 [facility] Influenza Virus 2005-09-12 Completed [facility] Vaccine 00:00:00 [facility] Influenza Virus 2005-09-12 Completed [facility] Vaccine 00:00:00 [facility] Influenza Virus 2005-09-12 Completed [facility] Vaccine 00:00:00 [facility] Influenza Virus 2005-09-12 Completed [facility] Vaccine 00:00:00 [facility] Influenza Virus 2005-09-12 Completed [facility] Vaccine 00:00:00 [facility] Influenza Virus 2005-09-12 Completed [facility] Vaccine 00:00:00 [facility] Influenza Virus 2005-09-12 Completed [facility] Vaccine 00:00:00 [facility] Influenza Virus 2005-09-12 Completed [facility] Vaccine 00:00:00 [facility] Influenza Virus 2005-09-12 Completed [facility] Vaccine 00:00:00 [facility] Influenza Virus 2005-09-12 Completed [facility] Vaccine 00:00:00 [facility] Influenza Virus 2005-09-12 Completed [facility] Vaccine 00:00:00 [facility] Influenza Virus 2005-09-12 Completed [facility] Vaccine 00:00:00 [facility] Influenza Virus 2005-09-12 Completed [facility] Vaccine 00:00:00 [facility] Influenza Virus 2005-09-12 Completed [facility] Vaccine 00:00:00 [facility] Influenza Virus 2005-09-12 Completed [facility] Vaccine 00:00:00 [facility] Influenza Virus 2005-09-12 Completed [facility] Vaccine 00:00:00 [facility] Influenza Virus 2005-09-12 Completed [facility] Vaccine 00:00:00 [facility] Influenza Virus 2005-09-12 Completed [facility] Vaccine 00:00:00 [facility] Influenza Virus 2005-09-12 Completed [facility] Vaccine 00:00:00 [facility] Influenza Virus 2005-09-12 Completed [facility] Vaccine 00:00:00 [facility] Influenza Virus 2005-09-12 Completed [facility] Vaccine 00:00:00 [facility] Influenza Virus 2005-09-12 Completed [facility] Vaccine 00:00:00 [facility] Influenza Virus 2005-09-12 Completed [facility] Vaccine 00:00:00 [facility] Influenza Virus 2005-09-12 Completed [facility] Vaccine 00:00:00 [facility] Influenza Virus 2005-09-12 Completed [facility] Vaccine 00:00:00 [facility] Influenza Virus 2005-09-12 Completed [facility] Vaccine 00:00:00 [facility] Influenza Virus 2005-09-12 Completed [facility] Vaccine 00:00:00 [facility] Influenza Virus 2005-09-12 Completed [facility] Vaccine 00:00:00 [facility] Influenza Virus 2005-09-12 Completed [facility] Vaccine 00:00:00 [facility] Influenza Virus 2005-09-12 Completed [facility] Vaccine 00:00:00 [facility] Influenza Virus 2005-09-12 Completed [facility] Vaccine 00:00:00 [facility] Influenza Virus 2005-09-12 Completed [facility] Vaccine 00:00:00 [facility] Influenza Virus 2005-09-12 Completed [facility] Vaccine 00:00:00 [facility] Influenza Virus 2005-09-12 Completed [facility] Vaccine 00:00:00 [facility] Influenza Virus 2005-09-12 Completed [facility] Vaccine 00:00:00 [facility] Influenza Virus 2005-09-12 Completed [facility] Vaccine 00:00:00 [facility] Influenza Virus 2005-09-12 Completed [facility] Vaccine 00:00:00 [facility] Influenza Virus 2005-09-12 Completed [facility] Vaccine 00:00:00 [facility] Influenza Virus 2005-09-12 Completed [facility] Vaccine 00:00:00 [facility] Influenza Virus 2005-09-12 Completed [facility] Vaccine 00:00:00 [facility] Influenza Virus 2005-09-12 Completed [facility] Vaccine 00:00:00 [facility] Influenza Virus 2005-09-12 Completed [facility] Vaccine 00:00:00 [facility] Influenza Virus 2005-09-12 Completed [facility] Vaccine 00:00:00 [facility] Influenza Virus 2005-09-12 Completed [facility] Vaccine 00:00:00 [facility] Influenza Virus 2005-09-12 Completed [facility] Vaccine 00:00:00 [facility] Influenza Virus 2005-09-12 Completed [facility] Vaccine 00:00:00 [facility] Influenza Virus 2005-09-12 Completed [facility] Vaccine 00:00:00 [facility] Influenza Virus 2005-09-12 Completed [facility] Vaccine 00:00:00 [facility] Influenza Virus 2005-09-12 Completed [facility] Vaccine 00:00:00 [facility] Influenza Virus 2005-09-12 Completed [facility] [facility] Influenza Virus 2005-09-12 Completed [facility] Vaccine 00[facility]00:00 [facility] Influenza Virus 2005-09-12 Completed [facility] Vaccine 00:00:00 [facility] Influenza Virus 2005-09-12 Completed [facility] Vaccine 00:00:00 [facility] Influenza Virus 2005-09-12 Completed [facility] Vaccine 00:00:00 [facility] Influenza Virus 2005-09-12 Completed [facility] Vaccine 00:00:00 [facility] Influenza Virus 2005-09-12 Completed [facility] Vaccine 00:00:00 [facility] Influenza Virus 2005-09-12 Completed [facility] Vaccine 00:00:00 [facility] Influenza Virus 2005-09-12 Completed [facility] Vaccine 00:00:00 [facility] Influenza Virus 2005-09-12 Completed [facility] Vaccine 00:00:00 [facility] Influenza Virus 2005-09-12 Completed [facility] Vaccine 00:00:00 [facility] Influenza Virus 2005-09-12 Completed [facility] Vaccine 00:00:00 [facility] Influenza Virus 2005-09-12 Completed [facility] Vaccine 00:00:00 [facility] Influenza Virus 2005-09-12 Completed [facility] Vaccine 00:00:00 [facility] Influenza Virus 2005-09-12 Completed [facility] Vaccine 00:00:00 [facility] Influenza Virus 2005-09-12 Completed [facility] Vaccine 00:00:00 [facility] Influenza Virus 2005-09-12 Completed [facility] Vaccine 00:00:00 [facility] Influenza Virus 2005-09-12 Completed [facility] Vaccine 00:00:00 [facility] Influenza Virus 2005-09-12 Completed [facility] Vaccine 00:00:00 [facility] Influenza Virus 2005-09-12 Completed [facility] Vaccine 00:00:00 [facility] Influenza Virus 2005-09-12 Completed [facility] Vaccine 00:00:00 [facility] Influenza Virus 2005-09-12 Completed [facility] Vaccine 00:00:00 [facility] Influenza Virus 2005-09-12 Completed [facility] Vaccine 00:00:00 [facility] Influenza Virus 2005-09-12 Completed [facility] Vaccine 00:00:00 [facility] Influenza Virus 2005-09-12 Completed [facility] Vaccine 00:00:00 [facility] Influenza Virus 2005-09-12 Completed [facility] Vaccine 00:00:00 [facility] Influenza Virus 2005-09-12 Completed [facility] Vaccine 00:00:00 [facility] Influenza Virus 2005-09-12 Completed [facility] Vaccine 00:00:00 [facility] Influenza Virus 2005-09-12 Completed [facility] Vaccine 00:00:00 [facility] Influenza Virus 2005-09-12 Completed [facility] Vaccine 00:00:00 [facility] Influenza Virus 2005-09-12 Completed [facility] Vaccine 00:00:00 [facility] Influenza Virus 2005-09-12 Completed [facility] Vaccine 00:00:00 [facility] Influenza Virus 2005-09-12 Completed [facility] Vaccine 00:00:00 [facility] Influenza Virus 2005-09-12 Completed [facility] Vaccine 00:00:00 [facility] Influenza Virus 2005-09-12 Completed [facility] Vaccine 00:00:00 [facility] Influenza Virus 2005-09-12 Completed [facility] Vaccine 00:00:00 [facility] Influenza Virus 2005-09-12 Completed [facility] Vaccine 00:00:00 [facility] Influenza Virus 2005-09-12 Completed [facility] Vaccine 00:00:00 [facility] Influenza Virus 2005-08-15 Completed [facility] Vaccine 00:00:00 [facility] Influenza Virus 2005-08-15 Completed [facility] Vaccine 00:00:00 [facility] Influenza Virus 2005-08-15 Completed [facility] Vaccine 00:00:00 [facility] Influenza Virus 2005-08-15 Completed [facility] Vaccine 00:00:00 [facility] Influenza Virus 2005-08-15 Completed [facility] Vaccine 00:00:00 [facility] Influenza Virus 2005-08-15 Completed [facility] Vaccine 00:00:00 [facility] Influenza Virus 2005-08-15 Completed [facility] Vaccine 00:00:00 [facility] Influenza Virus 2005-08-15 Completed [facility] Vaccine 00:00:00 [facility] Influenza Virus 2005-08-15 Completed [facility] Vaccine 00:00:00 [facility] Influenza Virus 2005-08-15 Completed [facility] Vaccine 00:00:00 [facility] Influenza Virus 2005-08-15 Completed [facility] Vaccine 00:00:00 [facility] Influenza Virus 2005-08-15 Completed [facility] Vaccine 00:00:00 [facility] Influenza Virus 2005-08-15 Completed [facility] Vaccine 00[facility]00:00 [facility] Influenza Virus 2005-08-15 Completed [facility] Vaccine 00:00:00 [facility] Influenza Virus 2005-08-15 Completed [facility] Vaccine 00:00:00 [facility] Influenza Virus 2005-08-15 Completed [facility] Vaccine 00:00:00 [facility] Influenza Virus 2005-08-15 Completed [facility] Vaccine 00:00:00 [facility] Influenza Virus 2005-08-15 Completed [facility] Vaccine 00:00:00 [facility] Influenza Virus 2005-08-15 Completed [facility] Vaccine 00:00:00 [facility] Influenza Virus 2005-08-15 Completed [facility] Vaccine 00:00:00 [facility] Influenza Virus 2005-08-15 Completed [facility] Vaccine 00:00:00 [facility] Influenza Virus 2005-08-15 Completed [facility] Vaccine 00:00:00 [facility] Influenza Virus 2005-08-15 Completed [facility] Vaccine 00:00:00 [facility] Influenza Virus 2005-08-15 Completed [facility] Vaccine 00:00:00 [facility] Influenza Virus 2005-08-15 Completed [facility] Vaccine 00:00:00 [facility] Influenza Virus 2005-08-15 Completed [facility] Vaccine 00:00:00 [facility] Influenza Virus 2005-08-15 Completed [facility] Vaccine 00:00:00 [facility] Influenza Virus 2005-08-15 Completed [facility] Vaccine 00:00:00 [facility] Influenza Virus 2005-08-15 Completed [facility] Vaccine 00:00:00 [facility] Influenza Virus 2005-08-15 Completed [facility] Vaccine 00:00:00 [facility] Influenza Virus 2005-08-15 Completed [facility] Vaccine 00:00:00 [facility] Influenza Virus 2005-08-15 Completed [facility] Vaccine 00:00:00 [facility] Influenza Virus 2005-08-15 Completed [facility] Vaccine 00:00:00 [facility] Influenza Virus 2005-08-15 Completed [facility] Vaccine 00:00:00 [facility] Influenza Virus 2005-08-15 Completed [facility] Vaccine 00:00:00 [facility] Influenza Virus 2005-08-15 Completed [facility] Vaccine 00:00:00 [facility] Influenza Virus 2005-08-15 Completed [facility] Vaccine 00:00:00 [facility] Influenza Virus 2005-08-15 Completed [facility] Vaccine 00:00:00 [facility] Influenza Virus 2005-08-15 Completed [facility] Vaccine 00:00:00 [facility] Influenza Virus 2005-08-15 Completed [facility] Vaccine 00:00:00 [facility] Influenza Virus 2005-08-15 Completed [facility] Vaccine 00:00:00 [facility] Influenza Virus 2005-08-15 Completed [facility] Vaccine 00:00:00 [facility] Influenza Virus 2005-08-15 Completed [facility] Vaccine 00:00:00 [facility] Influenza Virus 2005-08-15 Completed [facility] Vaccine 00:00:00 [facility] Influenza Virus 2005-08-15 Completed [facility] Vaccine 00:00:00 [facility] Influenza Virus 2005-08-15 Completed [facility] Vaccine 00:00:00 [facility] Influenza Virus 2005-08-15 Completed [facility] Vaccine 00:00:00 [facility] Influenza Virus 2005-08-15 Completed [facility] Vaccine 00:00:00 [facility] Influenza Virus 2005-08-15 Completed [facility] Vaccine 00:00:00 [facility] Influenza Virus 2005-08-15 Completed [facility] Vaccine 00:00:00 [facility] Influenza Virus 2005-08-15 Completed [facility] Vaccine 00:00:00 [facility] Influenza Virus 2005-08-15 Completed [facility] Vaccine 00:00:00 [facility] Influenza Virus 2005-08-15 Completed [facility] Vaccine 00:00:00 [facility] Influenza Virus 2005-08-15 Completed [facility] Vaccine 00:00:00 [facility] Influenza Virus 2005-08-15 Completed [facility] Vaccine 00:00:00 [facility] Influenza Virus 2005-08-15 Completed [facility] Vaccine 00:00:00 [facility] Influenza Virus 2005-08-15 Completed [facility] Vaccine 00:00:00 [facility] Influenza Virus 2005-08-15 Completed [facility] Vaccine 00:00:00 [facility] Influenza Virus 2005-08-15 Completed [facility] Vaccine 00:00:00 [facility] Influenza Virus 2005-08-15 Completed [facility] Vaccine 00:00:00 [facility] Influenza Virus 2005-08-15 Completed [facility] Vaccine 00:00:00 [facility] Influenza Virus 2005-08-15 Completed [facility] Vaccine 00:00:00 [facility] Influenza Virus 2005-08-15 Completed [facility] Vaccine 00:00:00 [facility] Influenza Virus 2005-08-15 Completed [facility] Vaccine 00:00:00 [facility] Influenza Virus 2005-08-15 Completed [facility] Vaccine 00:00:00 [facility] Influenza Virus 2005-08-15 Completed [facility] Vaccine 00:00:00 [facility] Influenza Virus 2005-08-15 Completed [facility] Vaccine 00:00:00 [facility] Influenza Virus 2005-08-15 Completed [facility] Vaccine 00:00:00 [facility] Influenza Virus 2005-08-15 Completed [facility] Vaccine 00:00:00 [facility] Influenza Virus 2005-08-15 Completed [facility] Vaccine 00:00:00 [facility] Influenza Virus 2005-08-15 Completed [facility] Vaccine 00:00:00 [facility] Influenza Virus 2005-08-15 Completed [facility] Vaccine 00:00:00 [facility] Influenza Virus 2005-08-15 Completed [facility] Vaccine 00:00:00 [facility] Influenza Virus 2005-08-15 Completed [facility] Vaccine 00:00:00 [facility] Influenza Virus 2005-08-15 Completed [facility] Vaccine 00:00:00 [facility] Influenza Virus 2005-08-15 Completed [facility] Vaccine 00:00:00 [facility] Influenza Virus 2005-08-15 Completed [facility] Vaccine 00:00:00 [facility] Influenza Virus 2005-08-15 Completed [facility] Vaccine 00:00:00 [facility] Influenza Virus 2005-08-15 Completed [facility] Vaccine 00:00:00 [facility] Influenza Virus 2005-08-15 Completed [facility] Vaccine 00:00:00 [facility] Influenza Virus 2005-08-15 Completed [facility] Vaccine 00:00:00 [facility] Influenza Virus 2005-08-15 Completed [facility] Vaccine 00:00:00 [facility] Influenza Virus 2005-08-15 Completed [facility] Vaccine 00:00:00 [facility] Influenza Virus 2005-08-15 Completed [facility] Vaccine 00:00:00 [facility] Influenza Virus 2005-08-15 Completed [facility] Vaccine 00:00:00 [facility] Influenza Virus 2005-08-15 Completed [facility] Vaccine 00:00:00 [facility] Influenza Virus 2005-08-15 Completed [facility] Vaccine 00:00:00 [facility] Influenza Virus 2005-08-15 Completed [facility] Vaccine 00:00:00 [facility] Influenza Virus 2005-08-15 Completed [facility] Vaccine 00:00:00 [facility] HEPATITIS A 2005-08-01 Completed [facility] 00:00:00 [facility] HEPATITIS A 2005-08-01 Completed [facility] 00:00:00 [facility] HEPATITIS A 2005-08-01 Completed [facility] 00:00:00 [facility] HEPATITIS A 2005-08-01 Completed [facility] 00:00:00 [facility] HEPATITIS A 2005-08-01 Completed [facility] 00:00:00 [facility] HEPATITIS A 2005-08-01 Completed [facility] 00:00:00 [facility] HEPATITIS A 2005-08-01 Completed [facility] 00:00:00 [facility] HEPATITIS A 2005-08-01 Completed [facility] 00:00:00 [facility] HEPATITIS A 2005-08-01 Completed [facility] 00:00:00 [facility] HEPATITIS A 2005-08-01 Completed [facility] 00:00:00 [facility] HEPATITIS A 2005-08-01 Completed [facility] 00:00:00 [facility] HEPATITIS A 2005-08-01 Completed [facility] 00:00:00 [facility] HEPATITIS A 2005-08-01 Completed [facility] 00:00:00 [facility] HEPATITIS A 2005-08-01 Completed [facility] 00:00:00 [facility] HEPATITIS A 2005-08-01 Completed [facility] 00:00:00 [facility] HEPATITIS A 2005-08-01 Completed [facility] 00:00:00 [facility] HEPATITIS A 2005-08-01 Completed [facility] 00:00:00 [facility] HEPATITIS A 2005-08-01 Completed [facility] 00:00:00 [facility] HEPATITIS A 2005-08-01 Completed [facility] 00:00:00 [facility] HEPATITIS A 2005-08-01 Completed [facility] 00:00:00 [facility] HEPATITIS A 2005-08-01 Completed [facility] 00:00:00 [facility] HEPATITIS A 2005-08-01 Completed [facility] 00:00:00 [facility] HEPATITIS A 2005-08-01 Completed [facility] 00:00:00 [facility] HEPATITIS A 2005-08-01 Completed [facility] 00:00:00 [facility] HEPATITIS A 2005-08-01 Completed [facility] 00:00:00 [facility] HEPATITIS A 2005-08-01 Completed [facility] 00:00:00 [facility] HEPATITIS A 2005-08-01 Completed [facility] 00:00:00 [facility] HEPATITIS A 2005-08-01 Completed [facility] 00:00:00 [facility] HEPATITIS A 2005-08-01 Completed [facility] 00:00:00 [facility] HEPATITIS A 2005-08-01 Completed [facility] 00:00:00 [facility] HEPATITIS A 2005-08-01 Completed [facility] 00:00:00 [facility] HEPATITIS A 2005-08-01 Completed [facility] 00:00:00 [facility] HEPATITIS A 2005-08-01 Completed [facility] 00:00:00 [facility] HEPATITIS A 2005-08-01 Completed [facility] 00:00:00 [facility] HEPATITIS A 2005-08-01 Completed [facility] 00:00:00 [facility] HEPATITIS A 2005-08-01 Completed [facility] 00:00:00 [facility] HEPATITIS A 2005-08-01 Completed [facility] 00:00:00 [facility] HEPATITIS A 2005-08-01 Completed [facility] 00:00:00 [facility] HEPATITIS A 2005-08-01 Completed [facility] 00:00:00 [facility] HEPATITIS A 2005-08-01 Completed [facility] 00:00:00 [facility] HEPATITIS A 2005-08-01 Completed [facility] 00:00:00 [facility] HEPATITIS A 2005-08-01 Completed [facility] 00:00:00 [facility] HEPATITIS A 2005-08-01 Completed [facility] 00:00:00 [facility] HEPATITIS A 2005-08-01 Completed [facility] 00:00:00 [facility] HEPATITIS A 2005-08-01 Completed [facility] 00:00:00 [facility] HEPATITIS A 2005-08-01 Completed [facility] 00:00:00 [facility] HEPATITIS A 2005-08-01 Completed [facility] 00:00:00 [facility] HEPATITIS A 2005-08-01 Completed [facility] 00:00:00 [facility] HEPATITIS A 2005-08-01 Completed [facility] 00:00:00 [facility] HEPATITIS A 2005-08-01 Completed [facility] 00:00:00 [facility] HEPATITIS A 2005-08-01 Completed [facility] 00:00:00 [facility] HEPATITIS A 2005-08-01 Completed [facility] 00:00:00 [facility] HEPATITIS A 2005-08-01 Completed [facility] 00:00:00 [facility] HEPATITIS A 2005-08-01 Completed [facility] 00:00:00 [facility] HEPATITIS A 2005-08-01 Completed [facility] 00:00:00 [facility] HEPATITIS A 2005-08-01 Completed [facility] 00:00:00 [facility] HEPATITIS A 2005-08-01 Completed [facility] 00:00:00 [facility] HEPATITIS A 2005-08-01 Completed [facility] 00:00:00 [facility] HEPATITIS A 2005-08-01 Completed [facility] 00:00:00 [facility] HEPATITIS A 2005-08-01 Completed [facility] 00:00:00 [facility] HEPATITIS A 2005-08-01 Completed [facility] 00:00:00 [facility] HEPATITIS A 2005-08-01 Completed [facility] 00:00:00 [facility] HEPATITIS A 2005-08-01 Completed [facility] 00:00:00 [facility] HEPATITIS A 2005-08-01 Completed [facility] 00:00:00 [facility] HEPATITIS A 2005-08-01 Completed [facility] 00:00:00 [facility] HEPATITIS A 2005-08-01 Completed [facility] 00:00:00 [facility] HEPATITIS A 2005-08-01 Completed [facility] 00:00:00 [facility] HEPATITIS A 2005-08-01 Completed [facility] 00:00:00 [facility] HEPATITIS A 2005-08-01 Completed [facility] 00:00:00 [facility] HEPATITIS A 2005-08-01 Completed [facility] 00:00:00 [facility] HEPATITIS A 2005-08-01 Completed [facility] 00:00:00 [facility] HEPATITIS A 2005-08-01 Completed [facility] 00:00:00 [facility] HEPATITIS A 2005-08-01 Completed [facility] 00:00:00 [facility] HEPATITIS A 2005-08-01 Completed [facility] 00:00:00 [facility] HEPATITIS A 2005-08-01 Completed [facility] 00:00:00 [facility] HEPATITIS A 2005-08-01 Completed [facility] 00:00:00 [facility] HEPATITIS A 2005-08-01 Completed [facility] 00:00:00 [facility] HEPATITIS A 2005-08-01 Completed [facility] 00:00:00 [facility] HEPATITIS A 2005-08-01 Completed [facility] 00:00:00 [facility] HEPATITIS A 2005-08-01 Completed [facility] 00:00:00 [facility] HEPATITIS A 2005-08-01 Completed [facility] 00:00:00 [facility] HEPATITIS A 2005-08-01 Completed [facility] 00:00:00 [facility] HEPATITIS A 2005-08-01 Completed [facility] 00:00:00 [facility] HEPATITIS A 2005-08-01 Completed [facility] 00:00:00 [facility] HEPATITIS A 2005-08-01 Completed [facility] 00:00:00 [facility] HEPATITIS A 2005-08-01 Completed [facility] 00:00:00 [facility] HEPATITIS A 2005-08-01 Completed [facility] 00:00:00 [facility] HEPATITIS A 2005-08-01 Completed [facility] 00:00:00 [facility] HEPATITIS A 2005-08-01 Completed [facility] 00:00:00 [facility] Pneumococcal 7 2004-10-04 Completed [facility] of Conjugate, [...] Branch DTAP 2004-06-27 Completed [facility] 00:00:00 [facility] HIB 4 Dose Schedule 2004-06-27 Completed Unive rsity of 00:00:00 [facility] MMR 2004-06-27 Completed [facility] 00:00:00 [facility] Pneumococcal 7 2004-06-27 Completed [facility] of Conjugate, PCV7 00:00:00 [place] [facility] (Prevnar7) [facility] Varicella 2004-06-27 Completed [facility] of (varivax)(chicken pox) 00:00:00 [facility] DTAP 2004-06-27 Completed [facility] 00:00:00 [facility] HIB 4 Dose Schedule 2004-06-27 Completed Unive rsity of 00:00:00 [facility] MMR 2004-06-27 Completed [facility] 00:00:00 [facility] Pneumococcal 7 2004-06-27 Completed [facility] of Conjugate, PCV7 00:00:00 [place] [facility] (Prevnar7) [facility] Varicella 2004-06-27 Completed [facility] of (varivax)(chicken pox) 00:00:00 [facility] DTAP 2004-06-27 Completed [facility] 00:00:00 [facility] DTAP 2004-06-27 Completed [facility] 00:00:00 [facility] HIB 4 Dose Schedule 2004-06-27 Completed Unive rsity of 00:00:00 [facility] MMR 2004-06-27 Completed [facility] 00:00:00 [facility] Pneumococcal 7 2004-06-27 Completed [facility] of Conjugate, PCV7 00:00:00 [place] [facility] (Prevnar7) [facility] HIB 4 Dose Schedule 2004-06-27 Completed Unive rsity of 00:00:00 [facility] Varicella 2004-06-27 Completed [facility] of (varivax)(chicken pox) 00:00:00 [facility] MMR 2004-06-27 Completed [facility] 00:00:00 [facility] Pneumococcal 7 2004-06-27 Completed [facility] of Conjugate, PCV7 00:00:00 [facility] (Prevnar7) [facility] DTAP 2004-06-27 Completed [facility] 00:00:00 [facility] HIB 4 Dose Schedule 2004-06-27 Completed Unive rsity of 00:00:00 [facility] MMR 2004-06-27 Completed [facility] 00:00:00 [facility] Pneumococcal 7 2004-06-27 Completed [facility] Conjugate, PCV7 00:00:00 [place] [facility] (Prevnar7) [facility] Varicella 2004-06-27 Completed [facility] of (varivax)(chicken pox) 00:00:00 [facility] Varicella 2004-06-27 Completed [facility] (varivax)(chicken pox) 00:00:00 [facility] DTAP 2004-06-27 Completed [facility] 00:00:00 [facility] HIB 4 Dose Schedule 2004-06-27 Completed Unive rsity of 00:00:00 [facility] MMR 2004-06-27 Completed [facility] 00:00:00 [facility] Pneumococcal 7 2004-06-27 Completed [facility] Conjugate, PCV7 00:00:00 [place] [facility] (Prevnar7) [facility] Varicella 2004-06-27 Completed [facility] (varivax)(chicken pox) 00:00:00 [facility] DTAP 2004-06-27 Completed [facility] 00:00:00 [facility] HIB 4 Dose Schedule 2004-06-27 Completed Unive rsity of 00:00:00 [facility] MMR 2004-06-27 Completed [facility] 00:00:00 [facility] Pneumococcal 7 2004-06-27 Completed [facility] Conjugate, PCV7 00:00:00 [place] [facility] (Prevnar7) [facility] Varicella 2004-06-27 Completed [facility] (varivax)(chicken pox) 00:00:00 [facility] DTAP 2004-06-27 Completed [facility] 00:00:00 [facility] HIB 4 Dose Schedule 2004-06-27 Completed Unive rsity of 00:00:00 [facility] MMR 2004-06-27 Completed [facility] 00:00:00 [facility] Pneumococcal 7 2004-06-27 Completed [facility] Conjugate, PCV7 00:00:00 [place] [facility] (Prevnar7) [facility] Varicella 2004-06-27 Completed [facility] (varivax)(chicken pox) 00:00:00 [facility] DTAP 2004-06-27 Completed [facility] of 00:00:00 [facility] HIB 4 Dose Schedule 2004-06-27 Completed Unive rsity of 00:00:00 [facility] MMR 2004-06-27 Completed [facility] 00:00:00 [facility] Pneumococcal 7 2004-06-27 Completed [facility] Conjugate, PCV7 00:00:00 [place] [facility] (Prevnar7) [facility] Varicella 2004-06-27 Completed [facility] (varivax)(chicken pox) 00:00:00 [facility] DTAP 2004-06-27 Completed [facility] 00:00:00 [facility] HIB 4 Dose Schedule 2004-06-27 Completed Unive rsity of 00:00:00 [facility] MMR 2004-06-27 Completed [facility] 00:00:00 [facility] Pneumococcal 7 2004-06-27 Completed [facility] Conjugate, PCV7 00:00:00 [place] [facility] (Prevnar7) [facility] Varicella 2004-06-27 Completed [facility] (varivax)(chicken pox) 00:00:00 [facility] DTAP 2004-06-27 Completed [facility] of 00:00:00 [facility] HIB 4 Dose Schedule 2004-06-27 Completed Unive rsity of 00:00:00 [facility] MMR 2004-06-27 Completed [facility] 00:00:00 [facility] Pneumococcal 7 2004-06-27 Completed [facility] Conjugate, PCV7 00:00:00 [place] [facility] (Prevnar7) [facility] Varicella 2004-06-27 Completed [facility] (varivax)(chicken pox) 00:00:00 [facility] DTAP 2004-06-27 Completed [facility] of 00:00:00 [facility] HIB 4 Dose Schedule 2004-06-27 Completed Unive rsity of 00:00:00 [facility] MMR 2004-06-27 Completed [facility] 00:00:00 [facility] Pneumococcal 7 2004-06-27 Completed [facility] Conjugate, PCV7 00:00:00 [place] [facility] (Prevnar7) [facility] DTAP 2004-06-27 Completed [facility] 00:00:00 [facility] Varicella 2004-06-27 Completed [facility] (varivax)(chicken pox) 00:00:00 [facility] HIB 4 Dose Schedule 2004-06-27 Completed Unive rsity of 00:00:00 [facility] DTAP 2004-06-27 Completed [facility] of 00:00:00 [facility] HIB 4 Dose Schedule 2004-06-27 Completed Unive rsity of 00:00:00 [facility] MMR 2004-06-27 Completed [facility] of 00:00:00 [facility] MMR 2004-06-27 Completed [facility] of 00:00:00 [facility] Pneumococcal 7 2004-06-27 Completed [facility] Conjugate, PCV7 00:00:00 [facility] ical (Prevnar7) Branch Varicella 2004-06-27 Completed [facility] of (varivax)(chicken pox) 00:00:00 [facility] Pneumococcal 7 2004-06-27 Completed [facility] of Conjugate, PCV7 00:00:00 [facility] ical (Prevnar7) Branch DTAP 2004-06-27 Completed [facility] of 00:00:00 [facility] HIB 4 Dose Schedule 2004-06-27 Completed Unive rsity of 00:00:00 [facility] MMR 2004-06-27 Completed [facility] of 00:00:00 [facility] Pneumococcal 7 2004-06-27 Completed [facility] Conjugate, PCV7 00:00:00 [facility] ical (Prevnar7) Branch Varicella 2004-06-27 Completed [facility] (varivax)(chicken pox) 00:00:00 [facility] Varicella 2004-06-27 Completed [facility] (varivax)(chicken pox) 00:00:00 [facility] DTAP 2004-06-27 Completed [facility] of 00:00:00 [facility] HIB 4 Dose Schedule 2004-06-27 Completed Unive rsity of 00:00:00 [facility] MMR 2004-06-27 Completed [facility] of 00:00:00 [facility] Pneumococcal 7 2004-06-27 Completed [facility] Conjugate, PCV7 00:00:00 [place] [facility] (Prevnar7) [facility] Varicella 2004-06-27 Completed [facility] (varivax)(chicken pox) 00:00:00 [facility] DTAP 2004-06-27 Completed [facility] 00:00:00 [facility] HIB 4 Dose Schedule 2004-06-27 Completed Unive rsity of 00:00:00 [facility] MMR 2004-06-27 Completed [facility] of 00:00:00 [facility] Pneumococcal 7 2004-06-27 Completed [facility] Conjugate, PCV7 00:00:00 [place] [facility] (Prevnar7) [facility] Varicella 2004-06-27 Completed [facility] (varivax)(chicken pox) 00:00:00 [facility] DTAP 2004-06-27 Completed [facility] 00:00:00 [facility] HIB 4 Dose Schedule 2004-06-27 Completed Unive rsity of 00:00:00 [facility] MMR 2004-06-27 Completed [facility] of 00:00:00 [facility] Pneumococcal 7 2004-06-27 Completed [facility] Conjugate, PCV7 00:00:00 [place] [facility] (Prevnar7) [facility] Varicella 2004-06-27 Completed [facility] (varivax)(chicken pox) 00:00:00 [facility] DTAP 2004-06-27 Completed [facility] of 00:00:00 [facility] HIB 4 Dose Schedule 2004-06-27 Completed Unive rsity of 00:00:00 [facility] MMR 2004-06-27 Completed [facility] of 00:00:00 [facility] Pneumococcal 7 2004-06-27 Completed [facility] Conjugate, PCV7 00:00:00 [place] [facility] (Prevnar7) [facility] Varicella 2004-06-27 Completed [facility] (varivax)(chicken pox) 00:00:00 [facility] DTAP 2004-06-27 Completed [facility] of 00:00:00 [facility] HIB 4 Dose Schedule 2004-06-27 Completed Unive rsity of 00:00:00 [facility] MMR 2004-06-27 Completed [facility] 00:00:00 [facility] Pneumococcal 7 2004-06-27 Completed [facility] Conjugate, PCV7 00:00:00 [place] [facility] (Prevnar7) [facility] Varicella 2004-06-27 Completed [facility] (varivax)(chicken pox) 00:00:00 [facility] DTAP 2004-06-27 Completed [facility] of 00:00:00 [facility] HIB 4 Dose Schedule 2004-06-27 Completed Unive rsity of 00:00:00 [facility] MMR 2004-06-27 Completed [facility] of 00:00:00 [facility] Pneumococcal 7 2004-06-27 Completed [facility] Conjugate, PCV7 00:00:00 [place] [facility] (Prevnar7) [facility] Varicella 2004-06-27 Completed [facility] (varivax)(chicken pox) 00:00:00 [facility] DTAP 2004-06-27 Completed [facility] 00:00:00 [facility] HIB 4 Dose Schedule 2004-06-27 Completed Unive rsity of 00:00:00 [facility] MMR 2004-06-27 Completed [facility] 00:00:00 [facility] Pneumococcal 7 2004-06-27 Completed [facility] Conjugate, PCV7 00:00:00 [place] [facility] (Prevnar7) [facility] Varicella 2004-06-27 Completed [facility] (varivax)(chicken pox) 00:00:00 [facility] DTAP 2004-06-27 Completed [facility] 00:00:00 [facility] DTAP 2004-06-27 Completed [facility] of 00:00:00 [facility] HIB 4 Dose Schedule 2004-06-27 Completed Unive rsity of 00:00:00 [facility] MMR 2004-06-27 Completed [facility] 00:00:00 [facility] Pneumococcal 7 2004-06-27 Completed [facility] Conjugate, PCV7 00:00:00 [place] [facility] (Prevnar7) [facility] Varicella 2004-06-27 Completed [facility] (varivax)(chicken pox) 00:00:00 [facility] HIB 4 Dose Schedule 2004-06-27 Completed Unive rsity of 00:00:00 [facility] MMR 2004-06-27 Completed [facility] of 00:00:00 [facility] DTAP 2004-06-27 Completed [facility] of 00:00:00 [facility] HIB 4 Dose Schedule 2004-06-27 Completed Unive rsity of 00:00:00 [facility] MMR 2004-06-27 Completed [facility] 00:00:00 [facility] Pneumococcal 7 2004-06-27 Completed [facility] Conjugate, PCV7 00:00:00 [place] [facility] (Prevnar7) [facility] Pneumococcal 7 2004-06-27 Completed [facility] Conjugate, PCV7 00:00:00 [place] [facility] (Prevnar7) [facility] Varicella 2004-06-27 Completed [facility] (varivax)(chicken pox) 00:00:00 [facility] DTAP 2004-06-27 Completed [facility] 00:00:00 [facility] Varicella 2004-06-27 Completed [facility] (varivax)(chicken pox) 00:00:00 [facility] HIB 4 Dose Schedule 2004-06-27 Completed Unive rsity of 00:00:00 [facility] MMR 2004-06-27 Completed [facility] of 00:00:00 [facility] Pneumococcal 7 2004-06-27 Completed [facility] Conjugate, PCV7 00:00:00 [facility] ical (Prevnar7) Branch Varicella 2004-06-27 Completed [facility] (varivax)(chicken pox) 00:00:00 [facility] DTAP 2004-06-27 Completed [facility] of 00:00:00 [facility] HIB 4 Dose Schedule 2004-06-27 Completed Unive rsity of 00:00:00 [facility] MMR 2004-06-27 Completed [facility] of 00:00:00 [facility] Pneumococcal 7 2004-06-27 Completed [facility] Conjugate, PCV7 00:00:00 [place] [facility] (Prevnar7) [facility] Varicella 2004-06-27 Completed [facility] (varivax)(chicken pox) 00:00:00 [facility] DTAP 2004-06-27 Completed [facility] 00:00:00 [facility] HIB 4 Dose Schedule 2004-06-27 Completed Unive rsity of 00:00:00 [facility] MMR 2004-06-27 Completed [facility] of 00:00:00 [facility] Pneumococcal 7 2004-06-27 Completed [facility] Conjugate, PCV7 00:00:00 [place] [facility] (Prevnar7) [facility] Varicella 2004-06-27 Completed [facility] (varivax)(chicken pox) 00:00:00 [facility] DTAP 2004-06-27 Completed [facility] 00:00:00 [facility] HIB 4 Dose Schedule 2004-06-27 Completed Unive rsity of 00:00:00 [facility] MMR 2004-06-27 Completed [facility] of 00:00:00 [facility] Pneumococcal 7 2004-06-27 Completed [facility] Conjugate, PCV7 00:00:00 [place] [facility] (Prevnar7) [facility] Varicella 2004-06-27 Completed [facility] (varivax)(chicken pox) 00:00:00 [facility] DTAP 2004-06-27 Completed [facility] of 00:00:00 [facility] HIB 4 Dose Schedule 2004-06-27 Completed Unive rsity of 00:00:00 [facility] MMR 2004-06-27 Completed [facility] 00:00:00 [facility] Pneumococcal 7 2004-06-27 Completed [facility] Conjugate, PCV7 00:00:00 [place] [facility] (Prevnar7) [facility] Varicella 2004-06-27 Completed [facility] (varivax)(chicken pox) 00:00:00 [facility] DTAP 2004-06-27 Completed [facility] of 00:00:00 [facility] HIB 4 Dose Schedule 2004-06-27 Completed Unive rsity of 00:00:00 [facility] MMR 2004-06-27 Completed [facility] of 00:00:00 [facility] Pneumococcal 7 2004-06-27 Completed [facility] Conjugate, PCV7 00:00:00 [place] [facility] (Prevnar7) [facility] Varicella 2004-06-27 Completed [facility] (varivax)(chicken pox) 00:00:00 [facility] DTAP 2004-06-27 Completed [facility] 00:00:00 [facility] HIB 4 Dose Schedule 2004-06-27 Completed Unive rsity of 00:00:00 [facility] MMR 2004-06-27 Completed [facility] 00:00:00 [facility] Pneumococcal 7 2004-06-27 Completed [facility] Conjugate, PCV7 00:00:00 [place] [facility] (Prevnar7) [facility] Varicella 2004-06-27 Completed [facility] (varivax)(chicken pox) 00:00:00 [facility] DTAP 2004-06-27 Completed [facility] 00:00:00 [facility] DTAP 2004-06-27 Completed [facility] of 00:00:00 [facility] HIB 4 Dose Schedule 2004-06-27 Completed Unive rsity of 00:00:00 [facility] MMR 2004-06-27 Completed [facility] of 00:00:00 [facility] Pneumococcal 7 2004-06-27 Completed [facility] Conjugate, PCV7 00:00:00 [place] [facility] (Prevnar7) [facility] Varicella 2004-06-27 Completed [facility] (varivax)(chicken pox) 00:00:00 [facility] HIB 4 Dose Schedule 2004-06-27 Completed Unive rsity of 00:00:00 [facility] MMR 2004-06-27 Completed [facility] of 00:00:00 [facility] Pneumococcal 7 2004-06-27 Completed [facility] Conjugate, PCV7 00:00:00 [place] [facility] (Prevnar7) Branch DTAP 2004-06-27 Completed [facility] 00:00:00 [facility] HIB 4 Dose Schedule 2004-06-27 Completed Unive rsity of 00:00:00 [facility] MMR 2004-06-27 Completed [facility] 00:00:00 [facility] Pneumococcal 7 2004-06-27 Completed [facility] Conjugate, PCV7 00:00:00 [place] [facility] (Prevnar7) [facility] Varicella 2004-06-27 Completed [facility] (varivax)(chicken pox) 00:00:00 [facility] Varicella 2004-06-27 Completed [facility] (varivax)(chicken pox) 00:00:00 [facility] DTAP 2004-06-27 Completed [facility] of 00:00:00 [facility] HIB 4 Dose Schedule 2004-06-27 Completed Unive rsity of 00:00:00 [facility] MMR 2004-06-27 Completed [facility] 00:00:00 [facility] Pneumococcal 7 2004-06-27 Completed [facility] Conjugate, PCV7 00:00:00 [place] [facility] (Prevnar7) [facility] Varicella 2004-06-27 Completed [facility] of (varivax)(chicken pox) 00:00:00 [facility] DTAP 2004-06-27 Completed [facility] of 00:00:00 [facility] HIB 4 Dose Schedule 2004-06-27 Completed Unive rsity of 00:00:00 [facility] MMR 2004-06-27 Completed [facility] of 00:00:00 [facility] Pneumococcal 7 2004-06-27 Completed [facility] Conjugate, PCV7 00:00:00 [place] [facility] (Prevnar7) [facility] Varicella 2004-06-27 Completed [facility] of (varivax)(chicken pox) 00:00:00 [facility] DTAP 2004-06-27 Completed [facility] 00:00:00 [facility] HIB 4 Dose Schedule 2004-06-27 Completed Unive rsity of 00:00:00 [facility] MMR 2004-06-27 Completed [facility] of 00:00:00 [facility] Pneumococcal 7 2004-06-27 Completed [facility] Conjugate, PCV7 00:00:00 [place] [facility] (Prevnar7) Branch Varicella 2004-06-27 Completed [facility] of (varivax)(chicken pox) 00:00:00 [facility] DTAP 2004-06-27 Completed University of 00:00:00 [facility] HIB 4 Dose Schedule 2004-06-27 Completed Unive rsity of 00:00:00 [facility] MMR 2004-06-27 Completed [facility] of 00:00:00 [facility] Pneumococcal 7 2004-06-27 Completed [facility] Conjugate, PCV7 00:00:00 [place] [facility] (Prevnar7) [facility] Varicella 2004-06-27 Completed [facility] of (varivax)(chicken pox) 00:00:00 [facility] DTAP 2004-06-27 Completed [facility] of 00:00:00 [facility] HIB 4 Dose Schedule 2004-06-27 Completed Unive rsity of 00:00:00 [facility] MMR 2004-06-27 Completed [facility] of 00:00:00 [facility] Pneumococcal 7 2004-06-27 Completed [facility] Conjugate, PCV7 00:00:00 [place] [facility] (Prevnar7) [facility] Varicella 2004-06-27 Completed [facility] (varivax)(chicken pox) 00:00:00 [facility] DTAP 2004-06-27 Completed [facility] of 00:00:00 [facility] HIB 4 Dose Schedule 2004-06-27 Completed Unive rsity of 00:00:00 [facility] MMR 2004-06-27 Completed [facility] of 00:00:00 [facility] Pneumococcal 7 2004-06-27 Completed [facility] Conjugate, PCV7 00:00:00 [place] [facility] (Prevnar7) [facility] Varicella 2004-06-27 Completed [facility] of (varivax)(chicken pox) 00:00:00 [facility] DTAP 2004-06-27 Completed [facility] of 00:00:00 [facility] HIB 4 Dose Schedule 2004-06-27 Completed Unive rsity of 00:00:00 [facility] MMR 2004-06-27 Completed [facility] of 00:00:00 [facility] Pneumococcal 7 2004-06-27 Completed [facility] of Conjugate, PCV7 00:00:00 [facility] ical (Prevnar7) Branch Varicella 2004-06-27 Completed [facility] of (varivax)(chicken pox) 00:00:00 [facility] DTAP 2004-06-27 Completed [facility] of 00:00:00 [facility] HIB 4 Dose Schedule 2004-06-27 Completed Unive rsity of 00:00:00 [facility] MMR 2004-06-27 Completed [facility] of 00:00:00 [facility] Pneumococcal 7 2004-06-27 Completed [facility] of Conjugate, PCV7 00:00:00 [facility] (Prevnar7) Branch Varicella 2004-06-27 Completed [facility] of (varivax)(chicken pox) 00:00:00 [facility] DTAP 2004-06-27 Completed [facility] of 00:00:00 [facility] HIB 4 Dose Schedule 2004-06-27 Completed Unive rsity of 00:00:00 [facility] MMR 2004-06-27 Completed [facility] of 00:00:00 [facility] Pneumococcal 7 2004-06-27 Completed [facility] Conjugate, PCV7 00:00:00 [facility] (Prevnar7) Branch Varicella 2004-06-27 Completed [facility] of (varivax)(chicken pox) 00:00:00 [facility] DTAP 2004-06-27 Completed [facility] of 00:00:00 [facility] HIB 4 Dose Schedule 2004-06-27 Completed Unive rsity of 00:00:00 [facility] DTAP 2004-06-27 Completed [facility] of 00:00:00 [facility] HIB 4 Dose Schedule 2004-06-27 Completed Unive rsity of 00:00:00 [facility] MMR 2004-06-27 Completed [facility] of 00:00:00 [facility] MMR 2004-06-27 Completed [facility] of 00:00:00 [facility] Pneumococcal 7 2004-06-27 Completed [facility] of Conjugate, PCV7 00:00:00 [facility] (Prevnar7) Branch Varicella 2004-06-27 Completed [facility] of (varivax)(chicken pox) 00:00:00 [facility] Pneumococcal 7 2004-06-27 Completed [facility] Conjugate, PCV7 00:00:00 [place] [facility] (Prevnar7) [facility] DTAP 2004-06-27 Completed [facility] 00:00:00 [facility] HIB 4 Dose Schedule 2004-06-27 Completed Unive rsity of 00:00:00 [facility] MMR 2004-06-27 Completed [facility] 00:00:00 [facility] Pneumococcal 7 2004-06-27 Completed [facility] of Conjugate, PCV7 00:00:00 [place] [facility] (Prevnar7) [facility] Varicella 2004-06-27 Completed [facility] of (varivax)(chicken pox) 00:00:00 [facility] Varicella 2004-06-27 Completed [facility] of (varivax)(chicken pox) 00:00:00 [facility] DTAP 2004-06-27 Completed [facility] 00:00:00 [facility] HIB 4 Dose Schedule 2004-06-27 Completed Unive rsity of 00:00:00 [facility] MMR 2004-06-27 Completed [facility] of 00:00:00 [facility] Pneumococcal 7 2004-06-27 Completed [facility] Conjugate, PCV7 00:00:00 [place] [facility] (Prevnar7) Branch Varicella 2004-06-27 Completed [facility] of (varivax)(chicken pox) 00:00:00 [facility] DTAP 2004-06-27 Completed [facility] 00:00:00 [facility] HIB 4 Dose Schedule 2004-06-27 Completed Unive rsity of 00:00:00 [facility] MMR 2004-06-27 Completed [facility] 00:00:00 [facility] Pneumococcal 7 2004-06-27 Completed [facility] Conjugate, PCV7 00:00:00 [place] [facility] (Prevnar7) Branch Varicella 2004-06-27 Completed [facility] of (varivax)(chicken pox) 00:00:00 [facility] DTAP 2004-06-27 Completed [facility] 00:00:00 [facility] HIB 4 Dose Schedule 2004-06-27 Completed Unive rsity of 00:00:00 [facility] MMR 2004-06-27 Completed [facility] 00:00:00 [facility] Pneumococcal 7 2004-06-27 Completed University of Conjugate, PCV7 00:00:00 [facility] (Pre[facility]ar7) [facility] Varicella 2004-06-27 Completed University of (varivax)(chicken pox) 00:00:00 [facility] DTAP 2004-06-27 Completed University of 00:00:00 [facility] HIB 4 Dose Schedule 2004-06-27 Completed Unive rsity of 00:00:00 [facility] MMR 2004-06-27 Completed [facility] 00:00:00 [facility] Pneumococcal 7 2004-06-27 Completed University of Conjugate, PCV7 00:00:00 [facility] (Prevnar7) [facility] Varicella 2004-06-27 Completed [facility] of (varivax)(chicken pox) 00:00:00 [facility] DTAP 2004-06-27 Completed [facility] 00:00:00 [facility] HIB 4 Dose Schedule 2004-06-27 Completed Unive rsity of 00:00:00 [facility] MMR 2004-06-27 Completed [facility] 00:00:00 [facility] Pneumococcal 7 2004-06-27 Completed [facility] Conjugate, PCV7 00:00:00 [facility] (Prevnar7) [facility] Varicella 2004-06-27 Completed [facility] (varivax)(chicken pox) 00:00:00 [facility] DTAP 2004-06-27 Completed [facility] 00:00:00 [facility] HIB 4 Dose Schedule 2004-06-27 Completed Unive rsity of 00:00:00 [facility] MMR 2004-06-27 Completed [facility] 00:00:00 [facility] Pneumococcal 7 2004-06-27 Completed [facility] Conjugate, PCV7 00:00:00 [facility] (Prevnar7) [facility] Varicella 2004-06-27 Completed [facility] (varivax)(chicken pox) 00:00:00 [facility] DTAP 2004-06-27 Completed [facility] 00:00:00 [facility] HIB 4 Dose Schedule 2004-06-27 Completed Unive rsity of 00:00:00 [facility] MMR 2004-06-27 Completed [facility] 00:00:00 [facility] Pneumococcal 7 2004-06-27 Completed [facility] Conjugate, PCV7 00:00:00 [facility] [place] [facility] (Prevnar7) [facility] Varicella 2004-06-27 Completed [facility] of (varivax)(chicken pox) 00:00:00 [facility] DTAP 2004-06-27 Completed [facility] 00:00:00 [facility] HIB 4 Dose Schedule 2004-06-27 Completed Unive rsity of 00:00:00 [facility] MMR 2004-06-27 Completed [facility] 00:00:00 [facility] Pneumococcal 7 2004-06-27 Completed [facility] of Conjugate, PCV7 00:00:00 [facility] [place] [facility] (Prevnar7) [facility] Varicella 2004-06-27 Completed [facility] of (varivax)(chicken pox) 00:00:00 [facility] DTAP 2004-06-27 Completed [facility] 00:00:00 [facility] HIB 4 Dose Schedule 2004-06-27 Completed Unive rsity of 00:00:00 [facility] DTAP 2004-06-27 Completed [facility] of 00:00:00 [facility] HIB 4 Dose Schedule 2004-06-27 Completed Unive rsity of 00:00:00 [facility] MMR 2004-06-27 Completed [facility] 00:00:00 [facility] Pneumococcal 7 2004-06-27 Completed [facility] Conjugate, PCV7 00:00:00 [facility] [place] [facility] (Prevnar7) [facility] Varicella 2004-06-27 Completed [facility] of (varivax)(chicken pox) 00:00:00 [facility] MMR 2004-06-27 Completed [facility] 00:00:00 [facility] Pneumococcal 7 2004-06-27 Completed [facility] of Conjugate, PCV7 00:00:00 [facility] [place] [facility] (Prevnar7) [facility] DTAP 2004-06-27 Completed [facility] 00:00:00 [facility] HIB 4 Dose Schedule 2004-06-27 Completed Unive rsity of 00:00:00 [facility] MMR 2004-06-27 Completed [facility] 00:00:00 [facility] Pneumococcal 7 2004-06-27 Completed [facility] Conjugate, PCV7 00:00:00 [facility] [place] [facility] (Prevnar7) [facility] Varicella 2004-06-27 Completed [facility] (varivax)(chicken pox) 00:00:00 [facility] Varicella 2004-06-27 Completed [facility] (varivax)(chicken pox) 00:00:00 [facility] DTAP 2004-06-27 Completed University of 00:00:00 [facility] HIB 4 Dose Schedule 2004-06-27 Completed Unive rsity of 00:00:00 [facility] MMR 2004-06-27 Completed [facility] 00:00:00 [facility] Pneumococcal 7 2004-06-27 Completed [facility] of Conjugate, PCV7 00:00:00 [facility] [place] [facility] (Prevnar7) [facility] Varicella 2004-06-27 Completed [facility] of (varivax)(chicken pox) 00:00:00 [facility] DTAP 2004-06-27 Completed [facility] 00:00:00 [facility] HIB 4 Dose Schedule 2004-06-27 Completed Unive rsity of 00:00:00 [facility] MMR 2004-06-27 Completed [facility] 00:00:00 [facility] Pneumococcal 7 2004-06-27 Completed [facility] of Conjugate, PCV7 00:00:00 [facility] [place] [facility] (Prevnar7) [facility] Varicella 2004-06-27 Completed [facility] of (varivax)(chicken pox) 00:00:00 [facility] DTAP 2004-06-27 Completed [facility] of 00:00:00 [facility] HIB 4 Dose Schedule 2004-06-27 Completed Unive rsity of 00:00:00 [facility] MMR 2004-06-27 Completed [facility] of 00:00:00 [facility] Pneumococcal 7 2004-06-27 Completed [facility] Conjugate, PCV7 00:00:00 [facility] [place] [facility] (Prevnar7) [facility] Varicella 2004-06-27 Completed [facility] of (varivax)(chicken pox) 00:00:00 [facility] DTAP 2004-06-27 Completed [facility] 00:00:00 [facility] HIB 4 Dose Schedule 2004-06-27 Completed Unive rsity of 00:00:00 [facility] MMR 2004-06-27 Completed [facility] 00:00:00 [facility] Pneumococcal 7 2004-06-27 Completed University of Conjugate, PCV7 00:00:00 [facility] [place] [facility] (Prevnar7) [facility] Varicella 2004-06-27 Completed [facility] of (varivax)(chicken pox) 00:00:00 [facility] DTAP 2004-06-27 Completed [facility] 00:00:00 [facility] HIB 4 Dose Schedule 2004-06-27 Completed Unive rsity of 00:00:00 [facility] MMR 2004-06-27 Completed [facility] 00:00:00 [facility] Pneumococcal 7 2004-06-27 Completed [facility] of Conjugate, PCV7 00:00:00 [facility] [place] [facility] (Prevnar7) [facility] Varicella 2004-06-27 Completed [facility] (varivax)(chicken pox) 00:00:00 [facility] DTAP 2004-06-27 Completed [facility] 00:00:00 [facility] HIB 4 Dose Schedule 2004-06-27 Completed Unive rsity of 00:00:00 [facility] MMR 2004-06-27 Completed [facility] of 00:00:00 [facility] Pneumococcal 7 2004-06-27 Completed [facility] of Conjugate, PCV7 00:00:00 [facility] [place] [facility] (Prevnar7) [facility] Varicella 2004-06-27 Completed [facility] of (varivax)(chicken pox) 00:00:00 [facility] DTAP 2004-06-27 Completed [facility] 00:00:00 [facility] HIB 4 Dose Schedule 2004-06-27 Completed Unive rsity of 00:00:00 [facility] MMR 2004-06-27 Completed [facility] 00:00:00 [facility] Pneumococcal 7 2004-06-27 Completed University of Conjugate, PCV7 00:00:00 [facility] [place] [facility] (Prevnar7) [facility] Varicella 2004-06-27 Completed [facility] of (varivax)(chicken pox) 00:00:00 [facility] DTAP 2004-06-27 Completed [facility] of 00:00:00 [facility] HIB 4 Dose Schedule 2004-06-27 Completed Unive rsity of 00:00:00 [facility] MMR 2004-06-27 Completed [facility] of 00:00:00 [facility] Pneumococcal 7 2004-06-27 Completed University of Conjugate, PCV7 00:00:00 [facility] [place] [facility] (Prevnar7) [facility] Varicella 2004-06-27 Completed [facility] of (varivax)(chicken pox) 00:00:00 [facility] DTAP 2004-06-27 Completed [facility] 00:00:00 [facility] HIB 4 Dose Schedule 2004-06-27 Completed Unive rsity of 00:00:00 [facility] MMR 2004-06-27 Completed [facility] 00:00:00 [facility] Pneumococcal 7 2004-06-27 Completed [facility] Conjugate, PCV7 00:00:00 [facility] [place] [facility] (Prevnar7) [facility] Varicella 2004-06-27 Completed [facility] of (varivax)(chicken pox) 00:00:00 [facility] DTAP 2004-06-27 Completed [facility] of 00:00:00 [facility] HIB 4 Dose Schedule 2004-06-27 Completed Unive rsity of 00:00:00 [facility] MMR 2004-06-27 Completed [facility] 00:00:00 [facility] Pneumococcal 7 2004-06-27 Completed [facility] Conjugate, PCV7 00:00:00 [facility] [place] [facility] (Prevnar7) [facility] Varicella 2004-06-27 Completed [facility] of (varivax)(chicken pox) 00:00:00 [facility] DTAP 2004-06-27 Completed [facility] of 00:00:00 [facility] HIB 4 Dose Schedule 2004-06-27 Completed Unive rsity of 00:00:00 [facility] MMR 2004-06-27 Completed [facility] 00:00:00 [facility] Pneumococcal 7 2004-06-27 Completed [facility] Conjugate, PCV7 00:00:00 [place] [facility] (Prevnar7) [facility] Varicella 2004-06-27 Completed [facility] of (varivax)(chicken pox) 00:00:00 [facility] DTAP 2004-06-27 Completed [facility] 00:00:00 [facility] HIB 4 Dose Schedule 2004-06-27 Completed Unive rsity of 00:00:00 [facility] MMR 2004-06-27 Completed [facility] 00:00:00 [facility] Pneumococcal 7 2004-06-27 Completed [facility] Conjugate, PCV7 00:00:00 [facility] [place] [facility] (Prevnar7) [facility] Varicella 2004-06-27 Completed [facility] of (varivax)(chicken pox) 00:00:00 [facility] DTAP 2004-06-27 Completed [facility] 00:00:00 [facility] HIB 4 Dose Schedule 2004-06-27 Completed Unive rsity of 00:00:00 [facility] MMR 2004-06-27 Completed [facility] 00:00:00 [facility] Pneumococcal 7 2004-06-27 Completed [facility] Conjugate, PCV7 00:00:00 [facility] [place] [facility] (Prevnar7) [facility] DTAP 2004-06-27 Completed [facility] 00:00:00 [facility] HIB 4 Dose Schedule 2004-06-27 Completed Unive rsity of 00:00:00 [facility] MMR 2004-06-27 Completed [facility] 00:00:00 [facility] Pneumococcal 7 2004-06-27 Completed [facility] Conjugate, PCV7 00:00:00 [facility] [place] [facility] (Prevnar7) [facility] Varicella 2004-06-27 Completed [facility] of (varivax)(chicken pox) 00:00:00 [facility] Varicella 2004-06-27 Completed [facility] of (varivax)(chicken pox) 00:00:00 [facility] DTAP 2004-06-27 Completed [facility] 00:00:00 [facility] HIB 4 Dose Schedule 2004-06-27 Completed Unive rsity of 00:00:00 [facility] MMR 2004-06-27 Completed [facility] 00:00:00 [facility] Pneumococcal 7 2004-06-27 Completed University of Conjugate, PCV7 00:00:00 [facility] [place] [facility] (Prevnar7) [facility] Varicella 2004-06-27 Completed [facility] of (varivax)(chicken pox) 00:00:00 [facility] DTAP 2004-06-27 Completed [facility] 00:00:00 [facility] HIB 4 Dose Schedule 2004-06-27 Completed Unive rsity of 00:00:00 [facility] MMR 2004-06-27 Completed [facility] 00:00:00 [facility] Pneumococcal 7 2004-06-27 Completed [facility] Conjugate, PCV7 00:00:00 [facility] [place] [facility] (Prevnar7) [facility] Varicella 2004-06-27 Completed [facility] of (varivax)(chicken pox) 00:00:00 [facility] DTAP 2004-06-27 Completed [facility] 00:00:00 [facility] HIB 4 Dose Schedule 2004-06-27 Completed Unive rsity of 00:00:00 [facility] MMR 2004-06-27 Completed [facility] 00:00:00 [facility] Pneumococcal 7 2004-06-27 Completed University of Conjugate, PCV7 00:00:00 [facility] [place] [facility] (Prevnar7) [facility] Varicella 2004-06-27 Completed [facility] of (varivax)(chicken pox) 00:00:00 [facility] DTAP 2004-06-27 Completed [facility] 00:00:00 [facility] HIB 4 Dose Schedule 2004-06-27 Completed Unive rsity of 00:00:00 [facility] MMR 2004-06-27 Completed [facility] of 00:00:00 [facility] Pneumococcal 7 2004-06-27 Completed [facility] of Conjugate, PCV7 00:00:00 [place] [facility] (Prevnar7) [facility] Varicella 2004-06-27 Completed [facility] of (varivax)(chicken pox) 00:00:00 [facility] DTAP 2004-06-27 Completed [facility] 00:00:00 [facility] HIB 4 Dose Schedule 2004-06-27 Completed Unive rsity of 00:00:00 [facility] MMR 2004-06-27 Completed [facility] of 00:00:00 [facility] Pneumococcal 7 2004-06-27 Completed [facility] of Conjugate, PCV7 00:00:00 [facility] [place] [facility] (Prevnar7) [facility] Varicella 2004-06-27 Completed [facility] of (varivax)(chicken pox) 00:00:00 [facility] DTAP 2004-06-27 Completed [facility] 00:00:00 [facility] HIB 4 Dose Schedule 2004-06-27 Completed Unive rsity of 00:00:00 [facility] MMR 2004-06-27 Completed [facility] 00:00:00 [facility] Pneumococcal 7 2004-06-27 Completed [facility] of Conjugate, PCV7 00:00:00 [place] [facility] (Prevnar7) [facility] Varicella 2004-06-27 Completed [facility] of (varivax)(chicken pox) 00:00:00 [facility] DTAP 2004-06-27 Completed [facility] 00:00:00 [facility] HIB 4 Dose Schedule 2004-06-27 Completed Unive rsity of 00:00:00 [facility] MMR 2004-06-27 Completed [facility] 00:00:00 [facility] Pneumococcal 7 2004-06-27 Completed [facility] Conjugate, PCV7 00:00:00 [place] [facility] (Prevnar7) [facility] Varicella 2004-06-27 Completed [facility] of (varivax)(chicken pox) 00:00:00 [facility] DTAP 2004-06-27 Completed [facility] 00:00:00 [facility] HIB 4 Dose Schedule 2004-06-27 Completed Unive rsity of 00:00:00 [facility] MMR 2004-06-27 Completed [facility] 00:00:00 [facility] Pneumococcal 7 2004-06-27 Completed [facility] Conjugate, PCV7 00:00:00 [place] [facility] (Prevnar7) [facility] DTAP 2004-06-27 Completed [facility] 00:00:00 [facility] Varicella 2004-06-27 Completed [facility] of (varivax)(chicken pox) 00:00:00 [facility] HIB 4 Dose Schedule 2004-06-27 Completed Unive rsity of 00:00:00 [facility] MMR 2004-06-27 Completed [facility] 00:00:00 [facility] Pneumococcal 7 2004-06-27 Completed [facility] Conjugate, PCV7 00:00:00 [place] [facility] (Prevnar7) [facility] Varicella 2004-06-27 Completed [facility] of (varivax)(chicken pox) 00:00:00 [facility] DTAP 2004-06-27 Completed [facility] 00:00:00 [facility] HIB 4 Dose Schedule 2004-06-27 Completed Unive rsity of 00:00:00 [facility] MMR 2004-06-27 Completed [facility] 00:00:00 [facility] Pneumococcal 7 2004-06-27 Completed [facility] Conjugate, PCV7 00:00:00 [place] [facility] (Prevnar7) [facility] Varicella 2004-06-27 Completed [facility] of (varivax)(chicken pox) 00:00:00 [facility] DTAP 2004-06-27 Completed [facility] 00:00:00 [facility] HIB 4 Dose Schedule 2004-06-27 Completed Unive rsity of 00:00:00 [facility] MMR 2004-06-27 Completed [facility] 00:00:00 [facility] Pneumococcal 7 2004-06-27 Completed University of Conjugate, PCV7 00:00:00 [place] [facility] (Prevnar7) [facility] Varicella 2004-06-27 Completed [facility] of (varivax)(chicken pox) 00:00:00 [facility] DTAP 2004-06-27 Completed [facility] 00:00:00 [facility] HIB 4 Dose Schedule 2004-06-27 Completed Unive rsity of 00:00:00 [facility] MMR 2004-06-27 Completed [facility] 00:00:00 [facility] Pneumococcal 7 2004-06-27 Completed [facility] of Conjugate, PCV7 00:00:00 [place] [facility] (Prevnar7) [facility] Varicella 2004-06-27 Completed [facility] of (varivax)(chicken pox) 00:00:00 [facility] DTAP 2004-06-27 Completed [facility] 00:00:00 [facility] HIB 4 Dose Schedule 2004-06-27 Completed Unive rsity of 00:00:00 [facility] MMR 2004-06-27 Completed [facility] 00:00:00 [facility] Pneumococcal 7 2004-06-27 Completed [facility] of Conjugate, PCV7 00:00:00 [facility] [place] [facility] (Prevnar7) [facility] Varicella 2004-06-27 Completed [facility] of (varivax)(chicken pox) 00:00:00 [facility] DTAP 2004-06-27 Completed [facility] 00:00:00 [facility] HIB 4 Dose Schedule 2004-06-27 Completed Unive rsity of 00:00:00 [facility] MMR 2004-06-27 Completed [facility] 00:00:00 [facility] Pneumococcal 7 2004-06-27 Completed [facility] Conjugate, PCV7 00:00:00 [facility] [place] [facility] (Prevnar7) [facility] Varicella 2004-06-27 Completed [facility] of (varivax)(chicken pox) 00:00:00 [facility] DTAP 2004-06-27 Completed [facility] 00:00:00 [facility] HIB 4 Dose Schedule 2004-06-27 Completed Unive rsity of 00:00:00 [facility] MMR 2004-06-27 Completed [facility] 00:00:00 [facility] Pneumococcal 7 2004-06-27 Completed University of Conjugate, PCV7 00:00:00 [facility] [place] [facility] (Prevnar7) [facility] Varicella 2004-06-27 Completed [facility] of (varivax)(chicken pox) 00:00:00 [facility] DTAP 2004-06-27 Completed [facility] 00:00:00 [facility] HIB 4 Dose Schedule 2004-06-27 Completed Unive rsity of 00:00:00 [facility] MMR 2004-06-27 Completed [facility] 00:00:00 [facility] Pneumococcal 7 2004-06-27 Completed [facility] of Conjugate, PCV7 00:00:00 [facility] [place] [facility] (Prevnar7) [facility] Varicella 2004-06-27 Completed [facility] of (varivax)(chicken pox) 00:00:00 [facility] DTAP 2004-06-27 Completed [facility] 00:00:00 [facility] HIB 4 Dose Schedule 2004-06-27 Completed Unive rsity of 00:00:00 [facility] MMR 2004-06-27 Completed [facility] 00:00:00 [facility] Pneumococcal 7 2004-06-27 Completed [facility] of Conjugate, PCV7 00:00:00 [facility] (Prevnar7) [facility] Varicella 2004-06-27 Completed [facility] (varivax)(chicken pox) 00:00:00 [facility] Hep B, Adol or Pedi 2004-04-27 Completed Unive rsity of Dosage 00:00:00 [facility] Hep B, Adol or Pedi 2004-04-27 Completed Unive rsity of Dosage 00:00:00 [facility] Hep B, Adol or Pedi 2004-04-27 Completed Unive rsity of Dosage 00:00:00 [facility] Hep B, Adol or Pedi 2004-04-27 Completed Unive rsity of Dosage 00:00:00 [facility] Hep B, Adol or Pedi 2004-04-27 Completed Unive rsity of Dosage 00:00:00 [facility] Hep B, Adol or Pedi 2004-04-27 Completed Unive rsity of Dosage 00:00:00 [facility] Hep B, Adol or Pedi 2004-04-27 Completed Unive rsity of Dosage 00:00:00 [facility] Hep B, Adol or Pedi 2004-04-27 Completed Unive rsity of Dosage 00:00:00 [facility] Hep B, Adol or Pedi 2004-04-27 Completed Unive rsity of Dosage 00:00:00 [facility] Hep B, Adol or Pedi 2004-04-27 Completed Unive rsity of Dosage 00:00:00 [facility] Hep B, Adol or Pedi 2004-04-27 Completed Unive rsity of Dosage 00:00:00 [facility] Hep B, Adol or Pedi 2004-04-27 Completed Unive rsity of Dosage 00:00:00 [facility] Hep B, Adol or Pedi 2004-04-27 Completed Unive rsity of Dosage 00:00:00 [facility] Hep B, Adol or Pedi 2004-04-27 Completed Unive rsity of Dosage 00:00:00 [facility] Hep B, Adol or Pedi 2004-04-27 Completed [facility]ive rsity of Dosage 00:00:00 [facility] Hep B, Adol or Pedi 2004-04-27 Completed [facility]ive rs[facility] of Dosage 00:00:00 [facility] Hep B, Adol or Pedi 2004-04-27 Completed [facility]ive [facility]ity of Dosage 00:00:00 [facility] Hep B, Adol or Pedi [...] 2004-04-27 Completed Unive rsity of Dosage 00:00:00 [facility] Hep B, Adol or Pedi 2004-04-27 Completed [facility]ive rsity of Dosage 00:00:00 [facility] Hep B, Adol or Pedi 2004-04-27 Completed Unive rsity of Dosage 00:00:00 [facility] DTAP 2004-01-13 Completed [facility] 00:00:00 [facility] HIB 4 Dose Schedule 2004-01-13 Completed [facility]ive [facility]ity of 00:00:00 [facility] Polio (IPV/OPV) 2004-01-13 Completed [facility] 00:00:00 [facility] DTAP 2004-01-13 Completed [facility] 00:00:00 [facility] HIB 4 Dose Schedule 2004-01-13 Completed [facility]ive rsity of 00:00:00 [facility] Polio (IPV/OPV) 2004-01-13 Completed [facility] 00:00:00 [facility] DTAP 2004-01-13 Completed [facility] 00:00:00 [facility] DTAP 2004-01-13 Completed [facility] 00:00:00 [facility] HIB 4 Dose Schedule 2004-01-13 Completed Unive rsity of 00:00:00 [facility] HIB 4 Dose Schedule 2004-01-13 Completed [facility] 00:00:00 [facility] [facility] Polio (IPV/OPV) 2004-01-13 Completed [facility]00 [facility] DTAP 2004-01-13 Completed [facility] 00[facility]00:00 [facility] HIB 4 Dose Schedule 2004-01-13 Completed [facility] 00:00:00 [facility] Polio (IPV/OPV) 2004-01-13 Completed [facility] 00:00:00 [facility] Polio (IPV/OPV) 2004-01-13 Completed [facility] 00:00:00 [facility] DTAP 2004-01-13 Completed [facility] 00:00:00 [facility] HIB 4 Dose Schedule 2004-01-13 Completed [facility] 00:00:00 [facility] Polio (IPV/OPV) 2004-01-13 Completed [facility] 00:00:00 [facility] DTAP 2004-01-13 Completed [facility] 00:00:00 [facility] HIB 4 Dose Schedule 2004-01-13 Completed [facility] 00:00:00 [facility] Polio (IPV/OPV) 2004-01-13 Completed [facility] 00:00:00 [facility] DTAP 2004-01-13 Completed [facility] 00:00:00 [facility] HIB 4 Dose Schedule 2004-01-13 Completed [facility] 00[facility]00:00 [facility] Polio (IPV/OPV) 2004-01-13 Completed [facility] 00:00:00 [facility] DTAP 2004-01-13 Completed [facility] 00:00:00 [facility] HIB 4 Dose Schedule 2004-01-13 Completed [facility] 00:00:00 [facility] Polio (IPV/OPV) 2004-01-13 Completed [facility] 00:00:00 [facility] DTAP 2004-01-13 Completed [facility] 00:00:00 [facility] HIB 4 Dose Schedule 2004-01-13 Completed [facility] 00:00:00 [facility] Polio (IPV/OPV) 2004-01-13 Completed [facility] 00:00:00 [facility] DTAP 2004-01-13 Completed [facility] 00:00:00 [facility] HIB 4 Dose Schedule 2004-01-13 Completed [facility] 00:00:00 [facility] Polio (IPV/OPV) 2004-01-13 Completed [facility] 00:00:00 [facility] DTAP 2004-01-13 Completed [facility] 00:00:00 [facility] DTAP 2004-01-13 Completed [facility] 00:00:00 [facility] HIB 4 Dose Schedule 2004-01-13 Completed [facility] 00:00:00 [facility] Polio (IPV/OPV) 2004-01-13 Completed [facility] 00:00:00 [facility] HIB 4 Dose Schedule 2004-01-13 Completed [facility] 00:00:00 [facility] DTAP 2004-01-13 Completed [facility] 00:00:00 [facility] HIB 4 Dose Schedule 2004-01-13 Completed [facility] 00[facility]00:00 [facility] Polio (IPV/OPV) 2004-01-13 Completed [facility] 00:00:00 [facility] DTAP 2004-01-13 Completed [facility] 00:00:00 [facility] HIB 4 Dose Schedule 2004-01-13 Completed [facility] 00:00:00 [facility] Polio (IPV/OPV) 2004-01-13 Completed [facility] 00:00:00 [facility] Polio (IPV/OPV) 2004-01-13 Completed [facility] 00:00:00 [facility] DTAP 2004-01-13 Completed [facility] 00:00:00 [facility] HIB 4 Dose Schedule 2004-01-13 Completed [facility] 00[facility]00:00 [facility] Polio (IPV/OPV) 2004-01-13 Completed [facility] 00:00:00 [facility] DTAP 2004-01-13 Completed [facility] 00:00:00 [facility] HIB 4 Dose Schedule 2004-01-13 Completed [facility] 00:00:00 [facility] Polio (IPV/OPV) 2004-01-13 Completed [facility] 00:00:00 [facility] DTAP 2004-01-13 Completed [facility] 00:00:00 [facility] HIB 4 Dose Schedule 2004-01-13 Completed [facility] 00:00:00 [facility] Polio (IPV/OPV) 2004-01-13 Completed [facility] 00:00:00 [facility] DTAP 2004-01-13 Completed [facility] 00:00:00 [facility] HIB 4 Dose Schedule 2004-01-13 Completed [facility] 00:00:00 [facility] Polio (IPV/OPV) 2004-01-13 Completed [facility] 00:00:00 [facility] DTAP 2004-01-13 Completed [facility] 00:00:00 [facility] HIB 4 Dose Schedule 2004-01-13 Completed [facility] 00:00:00 [facility] Polio (IPV/OPV) 2004-01-13 Completed [facility] 00:00:00 [facility] DTAP 2004-01-13 Completed [facility] 00:00:00 [facility] HIB 4 Dose Schedule 2004-01-13 Completed [facility] 00:00:00 [facility] Polio (IPV/OPV) 2004-01-13 Completed [facility] 00:00:00 [facility] DTAP 2004-01-13 Completed [facility] 00:00:00 [facility] HIB 4 Dose Schedule 2004-01-13 Completed [facility] 00:00:00 [facility] Polio (IPV/OPV) 2004-01-13 Completed [facility] 00:00:00 [facility] DTAP 2004-01-13 Completed [facility] 00:00:00 [facility] DTAP 2004-01-13 Completed [facility] 00:00:00 [facility] HIB 4 Dose Schedule 2004-01-13 Completed [facility] 00:00:00 [facility] Polio (IPV/OPV) 2004-01-13 Completed [facility] 00:00:00 [facility] HIB 4 Dose Schedule 2004-01-13 Completed [facility] 00:00:00 [facility] DTAP 2004-01-13 Completed [facility] 00:00:00 [facility] HIB 4 Dose Schedule 2004-01-13 Completed [facility] 00:00:00 [facility] Polio (IPV/OPV) 2004-01-13 Completed [facility] 00:00:00 [facility] Polio (IPV/OPV) 2004-01-13 Completed [facility] 00:00:00 [facility] DTAP 2004-01-13 Completed [facility] 00:00:00 [facility] HIB 4 Dose Schedule 2004-01-13 Completed [facility] 00:00:00 [facility] Polio (IPV/OPV) 2004-01-13 Completed [facility] 00:00:00 [facility] DTAP 2004-01-13 Completed [facility] 00:00:00 [facility] HIB 4 Dose Schedule 2004-01-13 Completed [facility] 00:00:00 [facility] Polio (IPV/OPV) 2004-01-13 Completed [facility] 00:00:00 [facility] DTAP 2004-01-13 Completed [facility] 00:00:00 [facility] HIB 4 Dose Schedule 2004-01-13 Completed [facility] 00:00:00 [facility] Polio (IPV/OPV) 2004-01-13 Completed [facility] 00:00:00 [facility] DTAP 2004-01-13 Completed [facility] 00:00:00 [facility] HIB 4 Dose Schedule 2004-01-13 Completed [facility] 00:00:00 [facility] Polio (IPV/OPV) 2004-01-13 Completed [facility] 00:00:00 [facility] DTAP 2004-01-13 Completed [facility] 00:00:00 [facility] HIB 4 Dose Schedule 2004-01-13 Completed [facility] 00:00:00 [facility] Polio (IPV/OPV) 2004-01-13 Completed [facility] 00:00:00 [facility] DTAP 2004-01-13 Completed [facility] 00:00:00 [facility] HIB 4 Dose Schedule 2004-01-13 Completed [facility] 00:00:00 [facility] Polio (IPV/OPV) 2004-01-13 Completed [facility] 00:00:00 [facility] DTAP 2004-01-13 Completed [facility] 00:00:00 [facility] HIB 4 Dose Schedule 2004-01-13 Completed [facility] 00:00:00 [facility] Polio (IPV/OPV) 2004-01-13 Completed [facility] 00:00:00 [facility] DTAP 2004-01-13 Completed [facility] 00:00:00 [facility] DTAP 2004-01-13 Completed [facility] 00:00:00 [facility] HIB 4 Dose Schedule 2004-01-13 Completed [facility] 00:00:00 [facility] HIB 4 Dose Schedule 2004-01-13 Completed [facility] 00:00:00 [facility] Polio (IPV/OPV) 2004-01-13 Completed [facility] 00:00:00 [facility] DTAP 2004-01-13 Completed [facility] 00:00:00 [facility] HIB 4 Dose Schedule 2004-01-13 Completed [facility] 00:00:00 [facility] Polio (IPV/OPV) 2004-01-13 Completed [facility] 00:00:00 [facility] Polio (IPV/OPV) 2004-01-13 Completed [facility] 00:00:00 [facility] DTAP 2004-01-13 Completed [facility] 00:00:00 [facility] HIB 4 Dose Schedule 2004-01-13 Completed [facility] 00:00:00 [facility] Polio (IPV/OPV) 2004-01-13 Completed [facility] 00:00:00 [facility] DTAP 2004-01-13 Completed [facility] 00:00:00 [facility] HIB 4 Dose Schedule 2004-01-13 Completed [facility] 00:00:00 [facility] Polio (IPV/OPV) 2004-01-13 Completed [facility] 00:00:00 [facility] DTAP 2004-01-13 Completed [facility] 00:00:00 [facility] HIB 4 Dose Schedule 2004-01-13 Completed [facility] 00:00:00 [facility] Polio (IPV/OPV) 2004-01-13 Completed [facility] 00:00:00 [facility] DTAP 2004-01-13 Completed [facility] 00:00:00 [facility] HIB 4 Dose Schedule 2004-01-13 Completed [facility] 00:00:00 [facility] Polio (IPV/OPV) 2004-01-13 Completed [facility] 00:00:00 [facility] DTAP 2004-01-13 Completed [facility] 00:00:00 [facility] HIB 4 Dose Schedule 2004-01-13 Completed [facility] 00:00:00 [facility] Polio (IPV/OPV) 2004-01-13 Completed [facility] 00:00:00 [facility] DTAP 2004-01-13 Completed [facility] 00:00:00 [facility] HIB 4 Dose Schedule 2004-01-13 Completed [facility] 00:00:00 [facility] Polio (IPV/OPV) 2004-01-13 Completed [facility] 00:00:00 [facility] DTAP 2004-01-13 Completed [facility] 00:00:00 [facility] HIB 4 Dose Schedule 2004-01-13 Completed [facility] 00:00:00 [facility] Polio (IPV/OPV) 2004-01-13 Completed [facility] 00:00:00 [facility] DTAP 2004-01-13 Completed [facility] 00:00:00 [facility] HIB 4 Dose Schedule 2004-01-13 Completed [facility] 00:00:00 [facility] Polio (IPV/OPV) 2004-01-13 Completed [facility] 00:00:00 [facility] DTAP 2004-01-13 Completed [facility] 00:00:00 [facility] DTAP 2004-01-13 Completed [facility] 00:00:00 [facility] HIB 4 Dose Schedule 2004-01-13 Completed [facility] 00:00:00 [facility] Polio (IPV/OPV) 2004-01-13 Completed [facility] 00:00:00 [facility] HIB 4 Dose Schedule 2004-01-13 Completed [facility] 00:00:00 [facility] DTAP 2004-01-13 Completed [facility] 00:00:00 [facility] HIB 4 Dose Schedule 2004-01-13 Completed [facility] 00:00:00 [facility] Polio (IPV/OPV) 2004-01-13 Completed [facility] 00:00:00 [facility] DTAP 2004-01-13 Completed [facility] 00:00:00 [facility] Polio (IPV/OPV) 2004-01-13 Completed [facility] 00:00:00 [facility] HIB 4 Dose Schedule 2004-01-13 Completed [facility] 00:00:00 [facility] Polio (IPV/OPV) 2004-01-13 Completed [facility] 00:00:00 [facility] DTAP 2004-01-13 Completed [facility] 00:00:00 [facility] HIB 4 Dose Schedule 2004-01-13 Completed [facility] 00:00:00 [facility] Polio (IPV/OPV) 2004-01-13 Completed [facility] 00:00:00 [facility] DTAP 2004-01-13 Completed [facility] 00:00:00 [facility] HIB 4 Dose Schedule 2004-01-13 Completed [facility] 00:00:00 [facility] Polio (IPV/OPV) 2004-01-13 Completed [facility] 00:00:00 [facility] DTAP 2004-01-13 Completed [facility] 00:00:00 [facility] HIB 4 Dose Schedule 2004-01-13 Completed [facility] 00:00:00 [facility] Polio (IPV/OPV) 2004-01-13 Completed [facility] 00:00:00 [facility] DTAP 2004-01-13 Completed [facility] 00:00:00 [facility] HIB 4 Dose Schedule 2004-01-13 Completed [facility] 00:00:00 [facility] Polio (IPV/OPV) 2004-01-13 Completed [facility] 00:00:00 [facility] DTAP 2004-01-13 Completed [facility] 00:00:00 [facility] HIB 4 Dose Schedule 2004-01-13 Completed [facility] 00:00:00 [facility] Polio (IPV/OPV) 2004-01-13 Completed [facility] 00:00:00 [facility] DTAP 2004-01-13 Completed [facility] 00:00:00 [facility] HIB 4 Dose Schedule 2004-01-13 Completed [facility] 00:00:00 [facility] Polio (IPV/OPV) 2004-01-13 Completed [facility] 00:00:00 [facility] DTAP 2004-01-13 Completed [facility] 00:00:00 [facility] HIB 4 Dose Schedule 2004-01-13 Completed [facility] 00:00:00 [facility] Polio (IPV/OPV) 2004-01-13 Completed [facility] 00:00:00 [facility] DTAP 2004-01-13 Completed [facility] 00:00:00 [facility] HIB 4 Dose Schedule 2004-01-13 Completed [facility] 00:00:00 [facility] DTAP 2004-01-13 Completed [facility] 00:00:00 [facility] Polio (IPV/OPV) 2004-01-13 Completed [facility] 00:00:00 [facility] HIB 4 Dose Schedule 2004-01-13 Completed [facility] 00:00:00 [facility] DTAP 2004-01-13 Completed [facility] 00:00:00 [facility] HIB 4 Dose Schedule 2004-01-13 Completed [facility] 00:00:00 [facility] Polio (IPV/OPV) 2004-01-13 Completed [facility] 00:00:00 [facility] DTAP 2004-01-13 Completed [facility] 00:00:00 [facility] Polio (IPV/OPV) 2004-01-13 Completed [facility] 00:00:00 [facility] HIB 4 Dose Schedule 2004-01-13 Completed [facility] 00:00:00 [facility] Polio (IPV/OPV) 2004-01-13 Completed [facility] 00:00:00 [facility] DTAP 2004-01-13 Completed [facility] 00:00:00 [facility] HIB 4 Dose Schedule 2004-01-13 Completed [facility] 00:00:00 [facility] Polio (IPV/OPV) 2004-01-13 Completed [facility] 00:00:00 [facility] DTAP 2004-01-13 Completed [facility] 00:00:00 [facility] HIB 4 Dose Schedule 2004-01-13 Completed [facility] 00:00:00 [facility] Polio (IPV/OPV) 2004-01-13 Completed [facility] 00:00:00 [facility] DTAP 2004-01-13 Completed [facility] 00:00:00 [facility] HIB 4 Dose Schedule 2004-01-13 Completed [facility] 00:00:00 [facility] Polio (IPV/OPV) 2004-01-13 Completed [facility] 00:00:00 [facility] DTAP 2004-01-13 Completed [facility] 00:00:00 [facility] HIB 4 Dose Schedule 2004-01-13 Completed [facility] 00:00:00 [facility] Polio (IPV/OPV) 2004-01-13 Completed [facility] 00:00:00 [facility] DTAP 2004-01-13 Completed [facility] 00:00:00 [facility] HIB 4 Dose Schedule 2004-01-13 Completed [facility] 00:00:00 [facility] Polio (IPV/OPV) 2004-01-13 Completed [facility] 00:00:00 [facility] DTAP 2004-01-13 Completed [facility] 00:00:00 [facility] HIB 4 Dose Schedule 2004-01-13 Completed [facility] 00:00:00 [facility] Polio (IPV/OPV) 2004-01-13 Completed [facility] 00:00:00 [facility] DTAP 2004-01-13 Completed [facility] 00:00:00 [facility] HIB 4 Dose Schedule 2004-01-13 Completed [facility] 00:00:00 [facility] Polio (IPV/OPV) 2004-01-13 Completed [facility] 00:00:00 [facility] DTAP 2004-01-13 Completed [facility] 00:00:00 [facility] HIB 4 Dose Schedule 2004-01-13 Completed [facility] 00:00:00 [facility] Polio (IPV/OPV) 2004-01-13 Completed [facility] 00:00:00 [facility] DTAP 2004-01-13 Completed [facility] 00:00:00 [facility] HIB 4 Dose Schedule 2004-01-13 Completed [facility] 00:00:00 [facility] Polio (IPV/OPV) 2004-01-13 Completed [facility] 00:00:00 [facility] DTAP 2004-01-13 Completed [facility] 00:00:00 [facility] HIB 4 Dose Schedule 2004-01-13 Completed [facility] 00:00:00 [facility] Polio (IPV/OPV) 2004-01-13 Completed [facility] 00:00:00 [facility] DTAP 2004-01-13 Completed [facility] 00:00:00 [facility] HIB 4 Dose Schedule 2004-01-13 Completed [facility] 00:00:00 [facility] Polio (IPV/OPV) 2004-01-13 Completed [facility] 00:00:00 [facility] DTAP 2004-01-13 Completed [facility] 00:00:00 [facility] DTAP 2004-01-13 Completed [facility] 00:00:00 [facility] HIB 4 Dose Schedule 2004-01-13 Completed [facility] 00:00:00 [facility] Polio (IPV/OPV) 2004-01-13 Completed [facility] 00:00:00 [facility] HIB 4 Dose Schedule 2004-01-13 Completed [facility] 00:00:00 [facility] DTAP 2004-01-13 Completed [facility] 00:00:00 [facility] HIB 4 Dose Schedule 2004-01-13 Completed [facility] 00:00:00 [facility] Polio (IPV/OPV) 2004-01-13 Completed [facility] 00:00:00 [facility] Polio (IPV/OPV) 2004-01-13 Completed [facility] 00:00:00 [facility] DTAP 2004-01-13 Completed [facility] 00:00:00 [facility] HIB 4 Dose Schedule 2004-01-13 Completed [facility] 00:00:00 [facility] Polio (IPV/OPV) 2004-01-13 Completed [facility] 00:00:00 [facility] DTAP 2004-01-13 Completed [facility] 00:00:00 [facility] HIB 4 Dose Schedule 2004-01-13 Completed [facility] 00:00:00 [facility] Polio (IPV/OPV) 2004-01-13 Completed [facility] 00:00:00 [facility] DTAP 2004-01-13 Completed [facility] 00:00:00 [facility] HIB 4 Dose Schedule 2004-01-13 Completed [facility] 00:00:00 [facility] Polio (IPV/OPV) 2004-01-13 Completed [facility] 00:00:00 [facility] DTAP 2004-01-13 Completed [facility] 00:00:00 [facility] HIB 4 Dose Schedule 2004-01-13 Completed [facility] 00:00:00 [facility] Polio (IPV/OPV) 2004-01-13 Completed [facility] 00:00:00 [facility] DTAP 2004-01-13 Completed [facility] 00:00:00 [facility] HIB 4 Dose Schedule 2004-01-13 Completed [facility] 00:00:00 [facility] Polio (IPV/OPV) 2004-01-13 Completed [facility] 00:00:00 [facility] DTAP 2004-01-13 Completed [facility] 00:00:00 [facility] HIB 4 Dose Schedule 2004-01-13 Completed [facility] 00:00:00 [facility] Polio (IPV/OPV) 2004-01-13 Completed [facility] 00:00:00 [facility] DTAP 2004-01-13 Completed [facility] 00:00:00 [facility] HIB 4 Dose Schedule 2004-01-13 Completed [facility] 00:00:00 [facility] Polio (IPV/OPV) 2004-01-13 Completed [facility] 00:00:00 [facility] DTAP 2004-01-13 Completed [facility] 00:00:00 [facility] DTAP 2004-01-13 Completed [facility] 00:00:00 [facility] HIB 4 Dose Schedule 2004-01-13 Completed [facility] 00:00:00 [facility] Polio (IPV/OPV) 2004-01-13 Completed [facility] 00:00:00 [facility] HIB 4 Dose Schedule 2004-01-13 Completed [facility] 00:00:00 [facility] Polio (IPV/OPV) 2004-01-13 Completed [facility] 00:00:00 [facility] DTAP 2004-01-13 Completed [facility] 00:00:00 [facility] HIB 4 Dose Schedule 2004-01-13 Completed [facility] 00:00:00 [facility] Polio (IPV/OPV) 2004-01-13 Completed [facility] 00:00:00 [facility] DTAP 2004-01-13 Completed [facility] 00:00:00 [facility] HIB 4 Dose Schedule 2004-01-13 Completed [facility] 00:00:00 [facility] Polio (IPV/OPV) 2004-01-13 Completed [facility] 00[facility]00:00 [facility] DTAP 2004-01-13 Completed [facility] 00:00:00 [facility] HIB 4 Dose Schedule 2004-01-13 Completed [facility] 00:00:00 [facility] Polio (IPV/OPV) 2004-01-13 Completed [facility] 00:00:00 [facility] DTAP 2004-01-13 Completed [facility] 00:00:00 [facility] HIB 4 Dose Schedule 2004-01-13 Completed [facility] 00:00:00 [facility] Polio (IPV/OPV) 2004-01-13 Completed [facility] 00:00:00 [facility] DTAP 2004-01-13 Completed [facility] 00:00:00 [facility] HIB 4 Dose Schedule 2004-01-13 Completed [facility] 00:00:00 [facility] Polio (IPV/OPV) 2004-01-13 Completed [facility] 00:00:00 [facility] DTAP 2004-01-13 Completed [facility] 00[facility]00:00 [facility] HIB 4 Dose Schedule 2004-01-13 Completed [facility] 00:00:00 [facility] Polio (IPV/OPV) 2004-01-13 Completed [facility] 00:00:00 [facility] DTAP 2004-01-13 Completed [facility] 00:00:00 [facility] HIB 4 Dose Schedule 2004-01-13 Completed [facility] 00:00:00 [facility] Polio (IPV/OPV) 2004-01-13 Completed [facility] 00:00:00 [facility] DTAP 2004-01-13 Completed [facility] 00:00:00 [facility] HIB 4 Dose Schedule 2004-01-13 Completed [facility] 00:00:00 [facility] Polio (IPV/OPV) 2004-01-13 Completed [facility] 00:00:00 [facility] DTAP 2003 Completed [facility] 00:00:00 [facility] HIB 4 Dose Schedule 2003 Completed [facility] 00:00:00 [facility] Pneumococcal 7 2003 Completed [facility] of Conjugate, PCV7 00:00:00 [facility] (Prevnar7) [facility] Polio (IPV/OPV) 2003 Completed [facility] 00:00:00 [facility] DTAP 2003 Completed [facility] 00:00:00 [facility] HIB 4 Dose Schedule 2003 Completed [facility] 00:00:00 [facility] Pneumococcal 7 2003 Completed [facility] Conjugate, PCV7 00:00:00 [place] [facility] (Prevnar7) [facility] Polio (IPV/OPV) 2003 Completed [facility] 00:00:00 [facility] DTAP 2003 Completed [facility] 00:00:00 [facility] HIB 4 Dose Schedule 2003 Completed [facility] 00:00:00 [facility] DTAP 2003 Completed [facility] 00:00:00 [facility] HIB 4 Dose Schedule 2003 Completed [facility] 00:00:00 [facility] Pneumococcal 7 2003 Completed [facility] Conjugate, PCV7 00:00:00 [facility] ical (Prevnar7) Branch Polio (IPV/OPV) 2003 Completed [facility] 00:00:00 [facility] Pneumococcal 7 2003 Completed [facility] Conjugate, PCV7 00:00:00 [place] [facility] (Prevnar7) [facility] DTAP 2003 Completed [facility] 00:00:00 [facility] HIB 4 Dose Schedule 2003 Completed [facility] 00:00:00 [facility] Pneumococcal 7 2003 Completed [facility] Conjugate, PCV7 00:00:00 [place] [facility] (Prevnar7) [facility] Polio (IPV/OPV) 2003 Completed [facility] 00:00:00 [facility] Polio (IPV/OPV) 2003 Completed [facility] 00:00:00 [facility] DTAP 2003 Completed [facility] 00:00:00 [facility] HIB 4 Dose Schedule 2003 Completed [facility] 00:00:00 [facility] Pneumococcal 7 2003 Completed [facility] Conjugate, PCV7 00:00:00 [place] [facility] (Prevnar7) [facility] Polio (IPV/OPV) 2003 Completed [facility] 00:00:00 [facility] DTAP 2003 Completed [facility] 00:00:00 [facility] HIB 4 Dose Schedule 2003 Completed [facility] 00:00:00 [facility] Pneumococcal 7 2003 Completed [facility] Conjugate, PCV7 00:00:00 [place] [facility] (Prevnar7) [facility] Polio (IPV/OPV) 2003 Completed [facility] 00:00:00 [facility] DTAP 2003 Completed [facility] 00:00:00 [facility] HIB 4 Dose Schedule 2003 Completed [facility] 00:00:00 [facility] Pneumococcal 7 2003 Completed [facility] Conjugate, PCV7 00:00:00 [place] [facility] (Prevnar7) [facility] Polio (IPV/OPV) 2003 Completed [facility] 00:00:00 [facility] DTAP 2003 Completed [facility] 00:00:00 [facility] HIB 4 Dose Schedule 2003 Completed [facility] 00:00:00 [facility] Pneumococcal 7 2003 Completed [facility] Conjugate, PCV7 00:00:00 [place] [facility] (Prevnar7) [facility] Polio (IPV/OPV) 2003 Completed [facility] 00:00:00 [facility] DTAP 2003 Completed [facility] 00:00:00 [facility] HIB 4 Dose Schedule 2003 Completed [facility] 00:00:00 [facility] Pneumococcal 7 2003 Completed [facility] Conjugate, PCV7 00:00:00 [place] [facility] (Prevnar7) [facility] Polio (IPV/OPV) 2003 Completed [facility] 00:00:00 [facility] DTAP 2003 Completed [facility] 00:00:00 [facility] HIB 4 Dose Schedule 2003 Completed [facility] 00:00:00 [facility] Pneumococcal 7 2003 Completed [facility] Conjugate, PCV7 00:00:00 [place] [facility] (Prevnar7) [facility] Polio (IPV/OPV) 2003 Completed [facility] 00:00:00 [facility] DTAP 2003 Completed [facility] 00:00:00 [facility] DTAP 2003 Completed [facility] 00:00:00 [facility] HIB 4 Dose Schedule 2003 Completed [facility] 00:00:00 [facility] Pneumococcal 7 2003 Completed [facility] Conjugate, PCV7 00:00:00 [place] [facility] (Prevnar7) [facility] Polio (IPV/OPV) 2003 Completed [facility] 00:00:00 [facility] HIB 4 Dose Schedule 2003 Completed [facility] 00:00:00 [facility] DTAP 2003 Completed [facility] 00:00:00 [facility] HIB 4 Dose Schedule 2003 Completed [facility] 00:00:00 [facility] Pneumococcal 7 2003 Completed [facility] Conjugate, PCV7 00:00:00 [place] [facility] (Prevnar7) [facility] Polio (IPV/OPV) 2003 Completed [facility] 00:00:00 [facility] Pneumococcal 7 2003 Completed [facility] Conjugate, PCV7 00:00:00 [place] [facility] (Prevnar7) [facility] Polio (IPV/OPV) 2003 Completed [facility] 00:00:00 [facility] DTAP 2003 Completed [facility] 00:00:00 [facility] HIB 4 Dose Schedule 2003 Completed [facility] 00:00:00 [facility] Pneumococcal 7 2003 Completed [facility] Conjugate, PCV7 00:00:00 [place] [facility] (Prevnar7) [facility] Polio (IPV/OPV) 2003 Completed [facility] 00:00:00 [facility] DTAP 2003 Completed [facility] 00:00:00 [facility] HIB 4 Dose Schedule 2003 Completed [facility] 00:00:00 [facility] Pneumococcal 7 2003 Completed [facility] Conjugate, PCV7 00:00:00 [place] [facility] (Prevnar7) [facility] Polio (IPV/OPV) 2003 Completed [facility] 00:00:00 [facility] DTAP 2003 Completed [facility] 00:00:00 [facility] HIB 4 Dose Schedule 2003 Completed [facility] 00:00:00 [facility] Pneumococcal 7 2003 Completed [facility] Conjugate, PCV7 00:00:00 [place] [facility] (Prevnar7) [facility] Polio (IPV/OPV) 2003 Completed [facility] 00:00:00 [facility] DTAP 2003 Completed [facility] 00:00:00 [facility] HIB 4 Dose Schedule 2003 Completed [facility] 00:00:00 [facility] Pneumococcal 7 2003 Completed [facility] Conjugate, PCV7 00:00:00 [place] [facility] (Prevnar7) [facility] Polio (IPV/OPV) 2003 Completed [facility] 00:00:00 [facility] DTAP 2003 Completed [facility] 00:00:00 [facility] HIB 4 Dose Schedule 2003 Completed [facility] 00:00:00 [facility] Pneumococcal 7 2003 Completed [facility] Conjugate, PCV7 00:00:00 [place] [facility] (Prevnar7) [facility] Polio (IPV/OPV) 2003 Completed [facility] 00:00:00 [facility] DTAP 2003 Completed [facility] 00:00:00 [facility] HIB 4 Dose Schedule 2003 Completed [facility] 00:00:00 [facility] Pneumococcal 7 2003 Completed [facility] Conjugate, PCV7 00:00:00 [place] [facility] (Prevnar7) [facility] Polio (IPV/OPV) 2003 Completed [facility] 00:00:00 [facility] DTAP 2003 Completed [facility] 00:00:00 [facility] HIB 4 Dose Schedule 2003 Completed [facility] 00:00:00 [facility] Pneumococcal 7 2003 Completed [facility] Conjugate, PCV7 00:00:00 [place] [facility] (Prevnar7) [facility] Polio (IPV/OPV) 2003 Completed [facility] 00:00:00 [facility] DTAP 2003 Completed [facility] 00:00:00 [facility] HIB 4 Dose Schedule 2003 Completed [facility] 00:00:00 [facility] Pneumococcal 7 2003 Completed [facility] Conjugate, PCV7 00:00:00 [place] [facility] (Prevnar7) [facility] Polio (IPV/OPV) 2003 Completed [facility] 00:00:00 [facility] DTAP 2003 Completed [facility] 00:00:00 [facility] DTAP 2003 Completed [facility] 00:00:00 [facility] HIB 4 Dose Schedule 2003 Completed [facility] 00:00:00 [facility] Pneumococcal 7 2003 Completed [facility] Conjugate, PCV7 00:00:00 [place] [facility] (Prevnar7) [facility] HIB 4 Dose Schedule 2003 Completed [facility] 00:00:00 [facility] Polio (IPV/OPV) 2003 Completed [facility] 00:00:00 [facility] DTAP 2003 Completed [facility] 00:00:00 [facility] HIB 4 Dose Schedule 2003 Completed [facility] 00:00:00 [facility] Pneumococcal 7 2003 Completed [facility] Conjugate, PCV7 00:00:00 [place] [facility] (Prevnar7) [facility] Polio (IPV/OPV) 2003 Completed [facility] 00:00:00 [facility] Pneumococcal 7 2003 Completed [facility] Conjugate, PCV7 00:00:00 [place] [facility] (Prevnar7) [facility] Polio (IPV/OPV) 2003 Completed [facility] 00:00:00 [facility] DTAP 2003 Completed [facility] 00:00:00 [facility] HIB 4 Dose Schedule 2003 Completed [facility] 00:00:00 [facility] Pneumococcal 7 2003 Completed [facility] Conjugate, PCV7 00:00:00 [place] [facility] (Prevnar7) [facility] Polio (IPV/OPV) 2003 Completed [facility] 00:00:00 [facility] DTAP 2003 Completed [facility] 00:00:00 [facility] HIB 4 Dose Schedule 2003 Completed [facility] 00:00:00 [facility] Pneumococcal 7 2003 Completed [facility] Conjugate, PCV7 00:00:00 [place] [facility] (Prevnar7) [facility] Polio (IPV/OPV) 2003 Completed [facility] 00:00:00 [facility] DTAP 2003 Completed [facility] 00:00:00 [facility] HIB 4 Dose Schedule 2003 Completed [facility] 00:00:00 [facility] Pneumococcal 7 2003 Completed [facility] Conjugate, PCV7 00:00:00 [place] [facility] (Prevnar7) [facility] Polio (IPV/OPV) 2003 Completed [facility] 00:00:00 [facility] DTAP 2003 Completed [facility] 00:00:00 [facility] HIB 4 Dose Schedule 2003 Completed [facility] 00:00:00 [facility] Pneumococcal 7 2003 Completed [facility] Conjugate, PCV7 00:00:00 [place] [facility] (Prevnar7) [facility] Polio (IPV/OPV) 2003 Completed [facility] 00:00:00 [facility] DTAP 2003 Completed [facility] 00:00:00 [facility] HIB 4 Dose Schedule 2003 Completed [facility] 00:00:00 [facility] Pneumococcal 7 2003 Completed [facility] Conjugate, PCV7 00:00:00 [place] [facility] (Prevnar7) [facility] Polio (IPV/OPV) 2003 Completed [facility] 00:00:00 [facility] DTAP 2003 Completed [facility] 00:00:00 [facility] HIB 4 Dose Schedule 2003 Completed [facility] 00:00:00 [facility] Pneumococcal 7 2003 Completed [facility] Conjugate, PCV7 00:00:00 [place] [facility] (Prevnar7) [facility] Polio (IPV/OPV) 2003 Completed [facility] 00:00:00 [facility] DTAP 2003 Completed [facility] 00:00:00 [facility] HIB 4 Dose Schedule 2003 Completed [facility] 00:00:00 [facility] Pneumococcal 7 2003 Completed [facility] Conjugate, PCV7 00:00:00 [place] [facility] (Prevnar7) [facility] Polio (IPV/OPV) 2003 Completed [facility] 00:00:00 [facility] DTAP 2003 Completed [facility] 00:00:00 [facility] HIB 4 Dose Schedule 2003 Completed [facility] 00:00:00 [facility] DTAP 2003 Completed [facility] 00:00:00 [facility] HIB 4 Dose Schedule 2003 Completed [facility] 00:00:00 [facility] Pneumococcal 7 2003 Completed [facility] Conjugate, PCV7 00:00:00 [place] [facility] (Prevnar7) [facility] Polio (IPV/OPV) 2003 Completed [facility] 00:00:00 [facility] DTAP 2003 Completed [facility] 00:00:00 [facility] HIB 4 Dose Schedule 2003 Completed [facility] 00:00:00 [facility] Pneumococcal 7 2003 Completed [facility] Conjugate, PCV7 00:00:00 [place] [facility] (Prevnar7) [facility] Pneumococcal 7 2003 Completed [facility] Conjugate, PCV7 00:00:00 [place] [facility] (Prevnar7) [facility] Polio (IPV/OPV) 2003 Completed [facility] 00:00:00 [facility] Polio (IPV/OPV) 2003 Completed [facility] 00:00:00 [facility] DTAP 2003 Completed [facility] 00:00:00 [facility] HIB 4 Dose Schedule 2003 Completed [facility] 00:00:00 [facility] Pneumococcal 7 2003 Completed [facility] Conjugate, PCV7 00:00:00 [place] [facility] (Prevnar7) Branch Polio (IPV/OPV) 2003 Completed [facility] 00:00:00 [facility] DTAP 2003 Completed [facility] 00:00:00 [facility] HIB 4 Dose Schedule 2003 Completed [facility] 00:00:00 [facility] Pneumococcal 7 2003 Completed [facility] Conjugate, PCV7 00:00:00 [place] [facility] (Prevnar7) Branch Polio (IPV/OPV) 2003 Completed [facility] 00:00:00 [facility] DTAP 2003 Completed [facility] 00:00:00 [facility] HIB 4 Dose Schedule 2003 Completed [facility] 00:00:00 [facility] Pneumococcal 7 2003 Completed [facility] Conjugate, PCV7 00:00:00 [place] [facility] (Prevnar7) Branch Polio (IPV/OPV) 2003 Completed [facility] 00:00:00 [facility] DTAP 2003 Completed [facility] 00:00:00 [facility] HIB 4 Dose Schedule 2003 Completed [facility] 00:00:00 [facility] Pneumococcal 7 2003 Completed [facility] Conjugate, PCV7 00:00:00 [place] [facility] (Prevnar7) Branch Polio (IPV/OPV) 2003 Completed [facility] 00:00:00 [facility] DTAP 2003 Completed [facility] 00:00:00 [facility] HIB 4 Dose Schedule 2003 Completed [facility] 00:00:00 [facility] Pneumococcal 7 2003 Completed [facility] Conjugate, PCV7 00:00:00 [place] [facility] (Prevnar7) Branch Polio (IPV/OPV) 2003 Completed [facility] 00:00:00 [facility] DTAP 2003 Completed [facility] 00:00:00 [facility] HIB 4 Dose Schedule 2003 Completed [facility] 00:00:00 [facility] Pneumococcal 7 2003 Completed [facility] Conjugate, PCV7 00:00:00 [place] [facility] (Prevnar7) Branch Polio (IPV/OPV) 2003 Completed [facility] 00:00:00 [facility] DTAP 2003 Completed [facility] 00:00:00 [facility] HIB 4 Dose Schedule 2003 Completed [facility] 00:00:00 [facility] Pneumococcal 7 2003 Completed [facility] Conjugate, PCV7 00:00:00 [place] [facility] (Prevnar7) Branch Polio (IPV/OPV) 2003 Completed [facility] 00:00:00 [facility] DTAP 2003 Completed [facility] 00:00:00 [facility] HIB 4 Dose Schedule 2003 Completed [facility] 00:00:00 [facility] Pneumococcal 7 2003 Completed [facility] Conjugate, PCV7 00:00:00 [place] [facility] (Prevnar7) Branch Polio (IPV/OPV) 2003 Completed [facility] 00:00:00 [facility] DTAP 2003 Completed [facility] 00:00:00 [facility] HIB 4 Dose Schedule 2003 Completed [facility] 00:00:00 [facility] Pneumococcal 7 2003 Completed [facility] Conjugate, PCV7 00:00:00 [place] [facility] (Prevnar7) Branch Polio (IPV/OPV) 2003 Completed [facility] 00:00:00 [facility] DTAP 2003 Completed [facility] 00:00:00 [facility] HIB 4 Dose Schedule 2003 Completed [facility] 00:00:00 [facility] DTAP 2003 Completed [facility] 00:00:00 [facility] HIB 4 Dose Schedule 2003 Completed [facility] 00:00:00 [facility] Pneumococcal 7 2003 Completed [facility] Conjugate, PCV7 00:00:00 [place] [facility] (Prevnar7) Branch Polio (IPV/OPV) 2003 Completed [facility] 00:00:00 [facility] Pneumococcal 7 2003 Completed [facility] Conjugate, PCV7 00:00:00 [place] [facility] (Prevnar7) Branch Polio (IPV/OPV) 2003 Completed [facility] 00:00:00 [facility] DTAP 2003 Completed [facility] 00:00:00 [facility] HIB 4 Dose Schedule 2003 Completed [facility] 00:00:00 [facility] Pneumococcal 7 2003 Completed [facility] Conjugate, PCV7 00:00:00 [place] [facility] (Prevnar7) [facility] Polio (IPV/OPV) 2003 Completed [facility] 00:00:00 [facility] DTAP 2003 Completed [facility] 00:00:00 [facility] HIB 4 Dose Schedule 2003 Completed [facility] 00:00:00 [facility] Pneumococcal 7 2003 Completed [facility] Conjugate, PCV7 00:00:00 [place] [facility] (Prevnar7) [facility] Polio (IPV/OPV) 2003 Completed [facility] 00:00:00 [facility] DTAP 2003 Completed [facility] 00:00:00 [facility] HIB 4 Dose Schedule 2003 Completed [facility] 00:00:00 [facility] Pneumococcal 7 2003 Completed [facility] Conjugate, PCV7 00:00:00 [place] [facility] (Prevnar7) [facility] Polio (IPV/OPV) 2003 Completed [facility] 00:00:00 [facility] DTAP 2003 Completed [facility] 00:00:00 [facility] HIB 4 Dose Schedule 2003 Completed [facility] 00:00:00 [facility] Pneumococcal 7 2003 Completed [facility] Conjugate, PCV7 00:00:00 [place] [facility] (Prevnar7) Branch Polio (IPV/OPV) 2003 Completed [facility] 00:00:00 [facility] DTAP 2003 Completed [facility] 00:00:00 [facility] HIB 4 Dose Schedule 2003 Completed [facility] 00:00:00 [facility] Pneumococcal 7 2003 Completed [facility] Conjugate, PCV7 00:00:00 [place] [facility] (Prevnar7) Branch Polio (IPV/OPV) 2003 Completed [facility] 00:00:00 [facility] DTAP 2003 Completed [facility] 00:00:00 [facility] HIB 4 Dose Schedule 2003 Completed [facility] 00:00:00 [facility] Pneumococcal 7 2003 Completed [facility] Conjugate, PCV7 00:00:00 [place] [facility] (Prevnar7) Branch Polio (IPV/OPV) 2003 Completed [facility] 00:00:00 [facility] DTAP 2003 Completed [facility] 00:00:00 [facility] HIB 4 Dose Schedule 2003 Completed [facility] 00:00:00 [facility] Pneumococcal 7 2003 Completed [facility] Conjugate, PCV7 00:00:00 [place] [facility] (Prevnar7) Branch Polio (IPV/OPV) 2003 Completed [facility] 00:00:00 [facility] DTAP 2003 Completed [facility] 00:00:00 [facility] HIB 4 Dose Schedule 2003 Completed [facility] 00:00:00 [facility] Pneumococcal 7 2003 Completed [facility] Conjugate, PCV7 00:00:00 [place] [facility] (Prevnar7) [facility] Polio (IPV/OPV) 2003 Completed [facility] 00:00:00 [facility] DTAP 2003 Completed [facility] 00:00:00 [facility] HIB 4 Dose Schedule 2003 Completed [facility] 00:00:00 [facility] Pneumococcal 7 2003 Completed [facility] Conjugate, PCV7 00:00:00 [place] [facility] (Prevnar7) [facility] Polio (IPV/OPV) 2003 Completed [facility] 00:00:00 [facility] DTAP 2003 Completed [facility] 00:00:00 [facility] HIB 4 Dose Schedule 2003 Completed [facility] 00:00:00 [facility] DTAP 2003 Completed [facility] 00:00:00 [facility] HIB 4 Dose Schedule 2003 Completed [facility] 00:00:00 [facility] Pneumococcal 7 2003 Completed [facility] Conjugate, PCV7 00:00:00 [place] [facility] (Prevnar7) [facility] Polio (IPV/OPV) 2003 Completed [facility] 00:00:00 [facility] Pneumococcal 7 2003 Completed [facility] Conjugate, PCV7 00:00:00 [place] [facility] (Prevnar7) [facility] Polio (IPV/OPV) 2003 Completed [facility] 00:00:00 [facility] DTAP 2003 Completed [facility] 00:00:00 [facility] HIB 4 Dose Schedule 2003 Completed [facility] 00:00:00 [facility] Pneumococcal 7 2003 Completed [facility] Conjugate, PCV7 00:00:00 [place] [facility] (Prevnar7) [facility] Polio (IPV/OPV) 2003 Completed [facility] 00:00:00 [facility] DTAP 2003 Completed [facility] 00:00:00 [facility] HIB 4 Dose Schedule 2003 Completed [facility] 00:00:00 [facility] Pneumococcal 7 2003 Completed [facility] Conjugate, PCV7 00:00:00 [place] [facility] (Prevnar7) [facility] Polio (IPV/OPV) 2003 Completed [facility] 00:00:00 [facility] DTAP 2003 Completed [facility] 00:00:00 [facility] HIB 4 Dose Schedule 2003 Completed [facility] 00:00:00 [facility] Pneumococcal 7 2003 Completed [facility] Conjugate, PCV7 00:00:00 [place] [facility] (Prevnar7) [facility] Polio (IPV/OPV) 2003 Completed [facility] 00:00:00 [facility] DTAP 2003 Completed [facility] 00[facility]00:00 [facility] HIB 4 Dose Schedule 2003 Completed [facility] 00:00:00 [facility] Pneumococcal 7 2003 Completed [facility] Conjugate, PCV7 00:00:00 [facility] [place] [facility] (Prevnar7) Branch Polio (IPV/OPV) 2003 Completed [facility] 00:00:00 [facility] DTAP 2003 Completed [facility] 00:00:00 [facility] HIB 4 Dose Schedule 2003 Completed [facility] 00:00:00 [facility] Pneumococcal 7 2003 Completed [facility] Conjugate, PCV7 00:00:00 [facility] [place] [facility] (Prevnar7) [facility] Polio (IPV/OPV) 2003 Completed [facility] 00:00:00 [facility] DTAP 2003 Completed [facility] 00:00:00 [facility] HIB 4 Dose Schedule 2003 Completed [facility] 00:00:00 [facility] Pneumococcal 7 2003 Completed [facility] Conjugate, PCV7 00:00:00 [facility] [place] [facility] (Prevnar7) [facility] Polio (IPV/OPV) 2003 Completed [facility] 00:00:00 [facility] DTAP 2003 Completed [facility] 00:00:00 [facility] HIB 4 Dose Schedule 2003 Completed [facility] 00:00:00 [facility] Pneumococcal 7 2003 Completed [facility] Conjugate, PCV7 00:00:00 [facility] [place] [facility] (Prevnar7) Branch Polio (IPV/OPV) 2003 Completed [facility] 00:00:00 [facility] DTAP 2003 Completed [facility] 00:00:00 [facility] HIB 4 Dose Schedule 2003 Completed [facility] 00:00:00 [facility] Pneumococcal 7 2003 Completed [facility] Conjugate, PCV7 00:00:00 [facility] [place] [facility] (Prevnar7) [facility] Polio (IPV/OPV) 2003 Completed [facility] 00:00:00 [facility] DTAP 2003 Completed [facility] 00:00:00 [facility] HIB 4 Dose Schedule 2003 Completed [facility] 00:00:00 [facility] Pneumococcal 7 2003 Completed [facility] Conjugate, PCV7 00:00:00 [facility] [place] [facility] (Prevnar7) Branch Polio (IPV/OPV) 2003 Completed [facility] 00:00:00 [facility] DTAP 2003 Completed [facility] 00:00:00 [facility] HIB 4 Dose Schedule 2003 Completed [facility] 00:00:00 [facility] Pneumococcal 7 2003 Completed [facility] Conjugate, PCV7 00:00:00 [place] [facility] (Prevnar7) Branch Polio (IPV/OPV) 2003 Completed [facility] 00:00:00 [facility] DTAP 2003 Completed [facility] 00:00:00 [facility] HIB 4 Dose Schedule 2003 Completed [facility] 00:00:00 [facility] Pneumococcal 7 2003 Completed [facility] Conjugate, PCV7 00:00:00 [facility] [place] [facility] (Prevnar7) [facility] Polio (IPV/OPV) 2003 Completed [facility] 00:00:00 [facility] DTAP 2003 Completed [facility] 00:00:00 [facility] HIB 4 Dose Schedule 2003 Completed [facility] 00:00:00 [facility] Pneumococcal 7 2003 Completed [facility] Conjugate, PCV7 00:00:00 [place] [facility] (Prevnar7) Branch Polio (IPV/OPV) 2003 Completed [facility] 00:00:00 [facility] DTAP 2003 Completed [facility] 00:00:00 [facility] HIB 4 Dose Schedule 2003 Completed [facility] 00:00:00 [facility] DTAP 2003 Completed [facility] 00:00:00 [facility] Pneumococcal 7 2003 Completed [facility] Conjugate, PCV7 00:00:00 [facility] (Prevnar7) Branch Polio (IPV/OPV) 2003 Completed [facility] 00:00:00 [facility] HIB 4 Dose Schedule 2003 Completed [facility] 00:00:00 [facility] DTAP 2003 Completed [facility] 00:00:00 [facility] HIB 4 Dose Schedule 2003 Completed [facility] 00:00:00 [facility] Pneumococcal 7 2003 Completed [facility] Conjugate, PCV7 00:00:00 [facility] [place] [facility] (Prevnar7) Branch Pneumococcal 7 2003 Completed [facility] Conjugate, PCV7 00:00:00 [facility] (Prevnar7) Branch Polio (IPV/OPV) 2003 Completed [facility] 00:00:00 [facility] Polio (IPV/OPV) 2003 Completed [facility] 00:00:00 [facility] DTAP 2003 Completed [facility] 00:00:00 [facility] HIB 4 Dose Schedule 2003 Completed [facility] 00:00:00 [facility] Pneumococcal 7 2003 Completed [facility] Conjugate, PCV7 00:00:00 [place] [facility] (Prevnar7) Branch Polio (IPV/OPV) 2003 Completed [facility] 00:00:00 [facility] DTAP 2003 Completed [facility] 00:00:00 [facility] HIB 4 Dose Schedule 2003 Completed [facility] of 00:00:00 [facility] Pneumococcal 7 2003 Completed [facility] Conjugate, PCV7 00:00:00 [place] [facility] (Prevnar7) Branch Polio (IPV/OPV) 2003 Completed [facility] 00:00:00 [facility] DTAP 2003 Completed [facility] 00:00:00 [facility] HIB 4 Dose Schedule 2003 Completed [facility] 00:00:00 [facility] Pneumococcal 7 2003 Completed [facility] Conjugate, PCV7 00:00:00 [place] [facility] (Prevnar7) Branch Polio (IPV/OPV) 2003 Completed [facility] 00:00:00 [facility] DTAP 2003 Completed [facility] 00:00:00 [facility] HIB 4 Dose Schedule 2003 Completed [facility] of 00:00:00 [facility] Pneumococcal 7 2003 Completed [facility] Conjugate, PCV7 00:00:00 [place] [facility] (Prevnar7) Branch Polio (IPV/OPV) 2003 Completed [facility] 00:00:00 [facility] DTAP 2003 Completed [facility] 00:00:00 [facility] HIB 4 Dose Schedule 2003 Completed [facility] 00:00:00 [facility] Pneumococcal 7 2003 Completed [facility] Conjugate, PCV7 00:00:00 [place] [facility] (Prevnar7) Branch Polio (IPV/OPV) 2003 Completed [facility] 00:00:00 [facility] DTAP 2003 Completed [facility] 00:00:00 [facility] HIB 4 Dose Schedule 2003 Completed [facility] 00:00:00 [facility] Pneumococcal 7 2003 Completed [facility] Conjugate, PCV7 00:00:00 [place] [facility] (Prevnar7) Branch Polio (IPV/OPV) 2003 Completed [facility] 00:00:00 [facility] DTAP 2003 Completed [facility] 00:00:00 [facility] HIB 4 Dose Schedule 2003 Completed [facility] 00:00:00 [facility] Pneumococcal 7 2003 Completed [facility] Conjugate, PCV7 00:00:00 [place] [facility] (Prevnar7) Branch Polio (IPV/OPV) 2003 Completed [facility] 00:00:00 [facility] DTAP 2003 Completed [facility] 00:00:00 [facility] DTAP 2003 Completed [facility] 00:00:00 [facility] HIB 4 Dose Schedule 2003 Completed [facility] 00:00:00 [facility] Pneumococcal 7 2003 Completed [facility] Conjugate, PCV7 00:00:00 [place] [facility] (Prevnar7) Branch Polio (IPV/OPV) 2003 Completed [facility] 00:00:00 [facility] HIB 4 Dose Schedule 2003 Completed [facility] of 00:00:00 [facility] Pneumococcal 7 2003 Completed [facility] Conjugate, PCV7 00:00:00 [place] [facility] (Prevnar7) Branch Polio (IPV/OPV) 2003 Completed [facility] 00:00:00 [facility] DTAP 2003 Completed [facility] 00:00:00 [facility] HIB 4 Dose Schedule 2003 Completed [facility] 00:00:00 [facility] Pneumococcal 7 2003 Completed [facility] Conjugate, PCV7 00:00:00 [place] [facility] (Prevnar7) Branch Polio (IPV/OPV) 2003 Completed [facility] 00:00:00 [facility] DTAP 2003 Completed [facility] 00:00:00 [facility] HIB 4 Dose Schedule 2003 Completed [facility] 00:00:00 [facility] Pneumococcal 7 2003 Completed [facility] Conjugate, PCV7 00:00:00 [place] [facility] (Prevnar7) Branch Polio (IPV/OPV) 2003 Completed [facility] 00:00:00 [facility] DTAP 2003 Completed [facility] 00:00:00 [facility] HIB 4 Dose Schedule 2003 Completed [facility] 00:00:00 [facility] Pneumococcal 7 2003 Completed [facility] Conjugate, PCV7 00:00:00 [place] [facility] (Prevnar7) Branch Polio (IPV/OPV) 2003 Completed [facility] 00:00:00 [facility] DTAP 2003 Completed [facility] 00:00:00 [facility] HIB 4 Dose Schedule 2003 Completed [facility] 00:00:00 [facility] Pneumococcal 7 2003 Completed [facility] Conjugate, PCV7 00:00:00 [place] [facility] (Prevnar7) Branch Polio (IPV/OPV) 2003 Completed [facility] 00:00:00 [facility] DTAP 2003 Completed [facility] 00:00:00 [facility] HIB 4 Dose Schedule 2003 Completed [facility] 00:00:00 [facility] Pneumococcal 7 2003 Completed [facility] Conjugate, PCV7 00:00:00 [place] [facility] (Prevnar7) Branch Polio (IPV/OPV) 2003 Completed [facility] 00:00:00 [facility] DTAP 2003 Completed [facility] 00:00:00 [facility] HIB 4 Dose Schedule 2003 Completed [facility] 00:00:00 [facility] Pneumococcal 7 2003 Completed [facility] Conjugate, PCV7 00:00:00 [place] [facility] (Prevnar7) Branch Polio (IPV/OPV) 2003 Completed [facility] 00:00:00 [facility] DTAP 2003 Completed [facility] 00:00:00 [facility] HIB 4 Dose Schedule 2003 Completed [facility] 00:00:00 [facility] Pneumococcal 7 2003 Completed [facility] Conjugate, PCV7 00:00:00 [place] [facility] (Prevnar7) Branch Polio (IPV/OPV) 2003 Completed [facility] 00:00:00 [facility] DTAP 2003 Completed [facility] 00:00:00 [facility] HIB 4 Dose Schedule 2003 Completed [facility] 00:00:00 [facility] Pneumococcal 7 2003 Completed [facility] Conjugate, PCV7 00:00:00 [place] [facility] (Prevnar7) Branch Polio (IPV/OPV) 2003 Completed [facility] 00:00:00 [facility] DTAP 2003 Completed [facility] 00:00:00 [facility] Hep B, Adol or Pedi 2003 Completed [facility] of Dosage 00:00:00 [facility] DTAP 2003 Completed [facility] 00:00:00 [facility] Hep B, Adol or Pedi 2003 Completed [facility] of Dosage 00:00:00 [facility] HIB 4 Dose Schedule 2003 Completed [facility] 00:00:00 [facility] HIB 4 Dose Schedule 2003 Completed [facility] 00:00:00 [facility] Polio (IPV/OPV) 2003 Completed [facility] 00:00:00 [facility] Pneumococcal 7 2003 Completed [facility] Conjugate, PCV7 00:00:00 [place] [facility] (Prevnar7) Branch Polio (IPV/OPV) 2003 Completed [facility] 00:00:00 [facility] Pneumococcal 7 2003 Completed [facility] Conjugate, PCV7 00:00:00 [place] [facility] (Prevnar7) Branch DTAP 2003 Completed [facility] 00:00:00 [facility] Hep B, Adol or Pedi 2003 Completed [facility] of Dosage 00:00:00 [facility] HIB 4 Dose Schedule 2003 Completed [facility] 00:00:00 [facility] Polio (IPV/OPV) 2003 Completed [facility] 00:00:00 [facility] Pneumococcal 7 2003 Completed [facility] Conjugate, PCV7 00:00:00 [place] [facility] (Prevnar7) Branch DTAP 2003 Completed [facility] 00:00:00 [facility] Hep B, Adol or Pedi 2003 Completed [facility] of Dosage 00:00:00 [facility] HIB 4 Dose Schedule 2003 Completed [facility] 00:00:00 [facility] Polio (IPV/OPV) 2003 Completed [facility] 00:00:00 [facility] Pneumococcal 7 2003 Completed [facility] Conjugate, PCV7 00:00:00 [place] [facility] (Prevnar7) Branch DTAP 2003 Completed [facility] 00:00:00 [facility] Hep B, Adol or Pedi 2003 Completed [facility] of Dosage 00:00:00 [facility] HIB 4 Dose Schedule 2003 Completed [facility] 00:00:00 [facility] Polio (IPV/OPV) 2003 Completed [facility] 00:00:00 [facility] Pneumococcal 7 2003 Completed [facility] Conjugate, PCV7 00:00:00 [place] [facility] (Prevnar7) Branch DTAP 2003 Completed [facility] 00:00:00 [facility] Hep B, Adol or Pedi 2003 Completed [facility] of Dosage 00:00:00 [facility] HIB 4 Dose Schedule 2003 Completed [facility] 00:00:00 [facility] Polio (IPV/OPV) 2003 Completed [facility] 00:00:00 [facility] Pneumococcal 7 2003 Completed [facility] Conjugate, PCV7 00:00:00 [place] [facility] (Prevnar7) Branch DTAP 2003 Completed [facility] 00:00:00 [facility] Hep B, Adol or Pedi 2003 Completed [facility] of Dosage 00:00:00 [facility] HIB 4 Dose Schedule 2003 Completed [facility] 00:00:00 [facility] Polio (IPV/OPV) 2003 Completed [facility] 00:00:00 [facility] Pneumococcal 7 2003 Completed [facility] Conjugate, PCV7 00:00:00 [place] [facility] (Prevnar7) Branch DTAP 2003 Completed [facility] 00:00:00 [facility] Hep B, Adol or Pedi 2003 Completed [facility] of Dosage 00:00:00 [facility] HIB 4 Dose Schedule 2003 Completed [facility] 00:00:00 [facility] Polio (IPV/OPV) 2003 Completed [facility] 00:00:00 [facility] Pneumococcal 7 2003 Completed [facility] Conjugate, PCV7 00:00:00 [place] [facility] (Prevnar7) Branch DTAP 2003 Completed [facility] 00:00:00 [facility] Hep B, Adol or Pedi 2003 Completed [facility] of Dosage 00:00:00 [facility] HIB 4 Dose Schedule 2003 Completed [facility] 00:00:00 [facility] Polio (IPV/OPV) 2003 Completed [facility] 00:00:00 [facility] Pneumococcal 7 2003 Completed [facility] Conjugate, PCV7 00:00:00 [place] [facility] (Prevnar7) Branch DTAP 2003 Completed [facility] 00:00:00 [facility] Hep B, Adol or Pedi 2003 Completed [facility] of Dosage 00:00:00 [facility] HIB 4 Dose Schedule 2003 Completed [facility] 00:00:00 [facility] DTAP 2003 Completed [facility] 00:00:00 [facility] Polio (IPV/OPV) 2003 Completed [facility] 00:00:00 [facility] Pneumococcal 7 2003 Completed [facility] Conjugate, PCV7 00:00:00 [place] [facility] (Prevnar7) Branch Hep B, Adol or Pedi 2003 Completed [facility] Dosage 00:00:00 [facility] HIB 4 Dose Schedule 2003 Completed [facility] 00:00:00 [facility] Polio (IPV/OPV) 2003 Completed [facility] 00:00:00 [facility] DTAP 2003 Completed [facility] 00:00:00 [facility] Hep B, Adol or Pedi 2003 Completed [facility] of Dosage 00:00:00 [facility] HIB 4 Dose Schedule 2003 Completed [facility] 00:00:00 [facility] Polio (IPV/OPV) 2003 Completed [facility] 00:00:00 [facility] Pneumococcal 7 2003 Completed [facility] Conjugate, PCV7 00:00:00 [place] [facility] (Prevnar7) Branch Pneumococcal 7 2003 Completed [facility] Conjugate, PCV7 00:00:00 [place] [facility] (Prevnar7) Branch DTAP 2003 Completed [facility] 00:00:00 [facility] Hep B, Adol or Pedi 2003 Completed [facility] of Dosage 00:00:00 [facility] HIB 4 Dose Schedule 2003 Completed [facility] 00:00:00 [facility] Polio (IPV/OPV) 2003 Completed [facility] 00:00:00 [facility] Pneumococcal 7 2003 Completed [facility] Conjugate, PCV7 00:00:00 [place] [facility] (Prevnar7) Branch DTAP 2003 Completed [facility] 00:00:00 [facility] Hep B, Adol or Pedi 2003 Completed [facility] of Dosage 00:00:00 [facility] HIB 4 Dose Schedule 2003 Completed [facility] 00:00:00 [facility] Polio (IPV/OPV) 2003 Completed [facility] 00:00:00 [facility] Pneumococcal 7 2003 Completed [facility] Conjugate, PCV7 00:00:00 [place] [facility] (Prevnar7) Branch DTAP 2003 Completed [facility] 00:00:00 [facility] Hep B, Adol or Pedi 2003 Completed [facility] of Dosage 00:00:00 [facility] HIB 4 Dose Schedule 2003 Completed [facility] 00:00:00 [facility] Polio (IPV/OPV) 2003 Completed [facility] 00:00:00 [facility] Pneumococcal 7 2003 Completed [facility] Conjugate, PCV7 00:00:00 [place] [facility] (Prevnar7) Branch DTAP 2003 Completed [facility] 00:00:00 [facility] Hep B, Adol or Pedi 2003 Completed [facility] of Dosage 00:00:00 [facility] HIB 4 Dose Schedule 2003 Completed [facility] 00:00:00 [facility] Polio (IPV/OPV) 2003 Completed [facility] 00:00:00 [facility] Pneumococcal 7 2003 Completed [facility] Conjugate, PCV7 00:00:00 [place] [facility] (Prevnar7) Branch DTAP 2003 Completed [facility] 00:00:00 [facility] Hep B, Adol or Pedi 2003 Completed [facility] of Dosage 00:00:00 [facility] HIB 4 Dose Schedule 2003 Completed [facility] 00:00:00 [facility] Polio (IPV/OPV) 2003 Completed [facility] 00:00:00 [facility] Pneumococcal 7 2003 Completed [facility] Conjugate, PCV7 00:00:00 [place] [facility] (Prevnar7) Branch DTAP 2003 Completed [facility] 00:00:00 [facility] Hep B, Adol or Pedi 2003 Completed [facility] of Dosage 00:00:00 [facility] HIB 4 Dose Schedule 2003 Completed [facility] 00:00:00 [facility] Polio (IPV/OPV) 2003 Completed [facility] 00:00:00 [facility] Pneumococcal 7 2003 Completed [facility] Conjugate, PCV7 00:00:00 [place] [facility] (Prevnar7) Branch DTAP 2003 Completed [facility] 00:00:00 [facility] Hep B, Adol or Pedi 2003 Completed [facility] of Dosage 00:00:00 [facility] HIB 4 Dose Schedule 2003 Completed [facility] 00:00:00 [facility] Polio (IPV/OPV) 2003 Completed [facility] 00:00:00 [facility] Pneumococcal 7 2003 Completed [facility] Conjugate, PCV7 00:00:00 [place] [facility] (Prevnar7) Branch DTAP 2003 Completed [facility] 00:00:00 [facility] Hep B, Adol or Pedi 2003 Completed [facility] of Dosage 00:00:00 [facility] HIB 4 Dose Schedule 2003 Completed [facility] 00:00:00 [facility] Polio (IPV/OPV) 2003 Completed [facility] 00:00:00 [facility] Pneumococcal 7 2003 Completed [facility] Conjugate, PCV7 00:00:00 [place] [facility] (Prevnar7) Branch DTAP 2003 Completed [facility] 00:00:00 [facility] Hep B, Adol or Pedi 2003 Completed [facility] of Dosage 00:00:00 [facility] DTAP 2003 Completed [facility] 00:00:00 [facility] Hep B, Adol or Pedi 2003 Completed [facility] of Dosage 00:00:00 [facility] HIB 4 Dose Schedule 2003 Completed [facility] 00:00:00 [facility] Polio (IPV/OPV) 2003 Completed [facility] 00:00:00 [facility] Pneumococcal 7 2003 Completed [facility] Conjugate, PCV7 00:00:00 [place] [facility] (Prevnar7) [facility] HIB 4 Dose Schedule 2003 Completed [facility] 00:00:00 [facility] Polio (IPV/OPV) 2003 Completed [facility] 00:00:00 [facility] Pneumococcal 7 2003 Completed [facility] Conjugate, PCV7 00:00:00 [place] [facility] (Prevnar7) Branch DTAP 2003 Completed [facility] 00:00:00 [facility] Hep B, Adol or Pedi 2003 Completed [facility] of Dosage 00:00:00 [facility] HIB 4 Dose Schedule 2003 Completed [facility] 00:00:00 [facility] Polio (IPV/OPV) 2003 Completed [facility] 00:00:00 [facility] Pneumococcal 7 2003 Completed [facility] Conjugate, PCV7 00:00:00 [place] [facility] (Prevnar7) [facility] DTAP 2003 Completed [facility] 00:00:00 [facility] Hep B, Adol or Pedi 2003 Completed [facility] of Dosage 00:00:00 [facility] HIB 4 Dose Schedule 2003 Completed [facility] 00:00:00 [facility] Polio (IPV/OPV) 2003 Completed [facility] 00:00:00 [facility] Pneumococcal 7 2003 Completed [facility] Conjugate, PCV7 00:00:00 [place] [facility] (Prevnar7) Branch DTAP 2003 Completed [facility] 00:00:00 [facility] Hep B, Adol or Pedi 2003 Completed [facility] of Dosage 00:00:00 [facility] HIB 4 Dose Schedule 2003 Completed [facility] 00:00:00 [facility] Polio (IPV/OPV) 2003 Completed [facility] 00:00:00 [facility] Pneumococcal 7 2003 Completed [facility] Conjugate, PCV7 00:00:00 [place] [facility] (Prevnar7) Branch DTAP 2003 Completed [facility] 00:00:00 [facility] Hep B, Adol or Pedi 2003 Completed [facility] Dosage 00:00:00 [facility] HIB 4 Dose Schedule 2003 Completed [facility] 00:00:00 [facility] Polio (IPV/OPV) 2003 Completed [facility] 00:00:00 [facility] Pneumococcal 7 2003 Completed [facility] Conjugate, PCV7 00:00:00 [place] [facility] (Prevnar7) Branch DTAP 2003 Completed [facility] 00:00:00 [facility] Hep B, Adol or Pedi 2003 Completed [facility] Dosage 00:00:00 [facility] HIB 4 Dose Schedule 2003 Completed [facility] 00:00:00 [facility] Polio (IPV/OPV) 2003 Completed [facility] [facility] Pneumococcal 7 2003 Completed [facility] Conjugate, PCV7 00:00:00 [place] [facility] (Prevnar7[facility] DTAP 2003 Completed [facility] 00:00:00 [facility] Hep B, Adol or Pedi 2003 Completed [facility] Dosage 00:00:00 [facility] HIB 4 Dose Schedule 2003 Completed [facility] 00:00:00 [facility] Polio (IPV/OPV) 2003 Completed [facility] 00:00:00 [facility] Pneumococcal 7 2003 Completed [facility] Conjugate, PCV7 00:00:00 [place] [facility] (Prevnar7) [facility] DTAP 2003 Completed [facility] 00:00:00 [facility] Hep B, Adol or Pedi 2003 Completed [facility] Dosage 00:00:00 [facility] HIB 4 Dose Schedule 2003 Completed [facility] 00[facility]00:00 [facility] Polio (IPV/OPV) 2003 Completed [facility] 00:00:00 [facility] Pneumococcal 7 2003 Completed [facility] Conjugate, PCV7 00:00:00 [place] [facility] (Prevnar7) [facility] DTAP 2003 Completed [facility] 00:00:00 [facility] Hep B, Adol or Pedi 2003 Completed [facility] Dosage 00:00:00 [facility] HIB 4 Dose Schedule 2003 Completed [facility] 00:00:00 [facility] Polio (IPV/OPV) 2003 Completed [facility] 00:00:00 [facility] Pneumococcal 7 2003 Completed [facility] Conjugate, PCV7 00:00:00 [place] [facility] (Prevnar7) [facility] DTAP 2003 Completed [facility] 00:00:00 [facility] Hep B, Adol or Pedi 2003 Completed [facility] Dosage 00:00:00 [facility] DTAP 2003 Completed [facility] 00:00:00 [facility] Hep B, Adol or Pedi 2003 Completed [facility] Dosage 00:00:00 [facility] HIB 4 Dose Schedule 2003 Completed [facility] 00:00:00 [facility] Polio (IPV/OPV) 2003 Completed [facility] 00:00:00 [facility] Pneumococcal 7 2003 Completed [facility] Conjugate, PCV7 00:00:00 [place] [facility] (Prevnar[facility]) [facility] HIB 4 Dose Schedule 2003 Completed [facility] 00:00:00 [facility] Polio (IPV/OPV) 2003 Completed [facility] 00:00:00 [facility] Pneumococcal 7 2003 Completed [facility] Conjugate, PCV7 00:00:00 [place] [facility] (Prevnar7[facility] DTAP 2003 Completed [facility] 00:00:00 [facility] Hep B, Adol or Pedi 2003 Completed [facility] Dosage 00:00:00 [facility] HIB 4 Dose Schedule 2003 Completed [facility] 00[facility]00:00 [facility] Polio (IPV/OPV) 2003 Completed [facility] 00:00:00 [facility] Pneumococcal 7 2003 Completed [facility] Conjugate, PCV7 00:00:00 [place] [facility] (Prevnar7) [facility] DTAP 2003 Completed [facility] 00:00:00 [facility] Hep B, Adol or Pedi 2003 Completed [facility] Dosage 00:00:00 [facility] HIB 4 Dose Schedule 2003 Completed [facility] 00:00:00 [facility] Polio (IPV/OPV) 2003 Completed [facility] 00:00:00 [facility] Pneumococcal 7 2003 Completed [facility] Conjugate, PCV7 00:00:00 [place] [facility] (Prevnar7) [facility] DTAP 2003 Completed [facility] 00:00:00 [facility] Hep B, Adol or Pedi 2003 Completed [facility] Dosage 00:00:00 [facility] HIB 4 Dose Schedule 2003 Completed [facility] 00:00:00 [facility] Polio (IPV/OPV) 2003 Completed [facility] 00:00:00 [facility] Pneumococcal 7 2003 Completed [facility] Conjugate, PCV7 00:00:00 [place] [facility] (Prevnar7) [facility] DTAP 2003 Completed [facility] 00:00:00 [facility] Hep B, Adol or Pedi 2003 Completed [facility] Dosage 00:00:00 [facility] HIB 4 Dose Schedule 2003 Completed [facility] 00:00:00 [facility] Polio (IPV/OPV) 2003 Completed [facility] 00:00:00 [facility] Pneumococcal 7 2003 Completed [facility] Conjugate, PCV7 00:00:00 [place] [facility] (Prevnar7) [facility] DTAP 2003 Completed [facility] 00:00:00 [facility] Hep B, Adol or Pedi 2003 Completed [facility] Dosage 00:00:00 [facility] HIB 4 Dose Schedule 2003 Completed [facility] 00:00:00 [facility] Polio (IPV/OPV) 2003 Completed [facility] 00:00:00 [facility] Pneumococcal 7 2003 Completed [facility] Conjugate, PCV7 00:00:00 [place] [facility] (Prevnar7) [facility] DTAP 2003 Completed [facility] 00:00:00 [facility] Hep B, Adol or Pedi 2003 Completed [facility] Dosage 00:00:00 [facility] HIB 4 Dose Schedule 2003 Completed [facility] 00:00:00 [facility] Polio (IPV/OPV) 2003 Completed [facility] 00:00:00 [facility] Pneumococcal 7 2003 Completed [facility] Conjugate, PCV7 00:00:00 [place] [facility] (Prevnar7) [facility] DTAP 2003 Completed [facility] 00:00:00 [facility] Hep B, Adol or Pedi 2003 Completed [facility] Dosage 00:00:00 [facility] HIB 4 Dose Schedule 2003 Completed [facility] 00:00:00 [facility] Polio (IPV/OPV) 2003 Completed [facility] 00:00:00 [facility] Pneumococcal 7 2003 Completed [facility] Conjugate, PCV7 00:00:00 [place] [facility] (Prevnar7) [facility] DTAP 2003 Completed [facility] 00:00:00 [facility] Hep B, Adol or Pedi 2003 Completed [facility] Dosage 00:00:00 [facility] HIB 4 Dose Schedule 2003 Completed [facility] 00:00:00 [facility] Polio (IPV/OPV) 2003 Completed [facility] 00:00:00 [facility] Pneumococcal 7 2003 Completed [facility] Conjugate, PCV7 00:00:00 [place] [facility] (Prevnar7) [facility] DTAP 2003 Completed [facility] 00:00:00 [facility] Hep B, Adol or Pedi 2003 Completed [facility] Dosage 00:00:00 [facility] HIB 4 Dose Schedule 2003 Completed [facility] 00:00:00 [facility] Polio (IPV/OPV) 2003 Completed [facility] 00:00:00 [facility] Pneumococcal 7 2003 Completed [facility] Conjugate, PCV7 00:00:00 [place] [facility] (Prevnar7) [facility] DTAP 2003 Completed [facility] 00:00:00 [facility] Hep B, Adol or Pedi 2003 Completed [facility] Dosage 00:00:00 [facility] HIB 4 Dose Schedule 2003 Completed [facility] 00:00:00 [facility] Polio (IPV/OPV) 2003 Completed [facility] 00:00:00 [facility] Pneumococcal 7 2003 Completed [facility] Conjugate, PCV7 00:00:00 [place] [facility] (Prevnar7) [facility] DTAP 2003 Completed [facility] 00:00:00 [facility] Hep B, Adol or Pedi 2003 Completed [facility] Dosage 00:00:00 [facility] HIB 4 Dose Schedule 2003 Completed [facility] 00:00:00 [facility] Polio (IPV/OPV) 2003 Completed [facility] 00:00:00 [facility] DTAP 2003 Completed [facility] 00:00:00 [facility] Hep B, Adol or Pedi 2003 Completed [facility] Dosage 00:00:00 [facility] HIB 4 Dose Schedule 2003 Completed [facility] 00:00:00 [facility] Polio (IPV/OPV) 2003 Completed [facility] 00:00:00 [facility] Pneumococcal 7 2003 Completed [facility] Conjugate, PCV7 00:00:00 [place] [facility] (Pre[facility]ar[facility] Pneumococcal 7 2003 Completed [facility] Conjugate, PCV7 00:00:00 [place] [facility] (Prevnar7) [facility] DTAP 2003 Completed [facility] 00:00:00 [facility] Hep B, Adol or Pedi 2003 Completed [facility] Dosage 00:00:00 [facility] HIB 4 Dose Schedule 2003 Completed [facility] 00[facility]00:00 [facility] Polio (IPV/OPV) 2003 Completed [facility] 00:00:00 [facility] Pneumococcal 7 2003 Completed [facility] Conjugate, PCV7 00:00:00 [place] [facility] (Prevnar7) [facility] DTAP 2003 Completed [facility] 00:00:00 [facility] Hep B, Adol or Pedi 2003 Completed [facility] Dosage 00:00:00 [facility] HIB 4 Dose Schedule 2003 Completed [facility] 00:00:00 [facility] Polio (IPV/OPV) 2003 Completed [facility] 00:00:00 [facility] Pneumococcal 7 2003 Completed [facility] Conjugate, PCV7 00:00:00 [place] [facility] (Prevnar7) [facility] DTAP 2003 Completed [facility] 00:00:00 [facility] Hep B, Adol or Pedi 2003 Completed [facility] Dosage 00:00:00 [facility] HIB 4 Dose Schedule 2003 Completed [facility] 00:00:00 [facility] Polio (IPV/OPV) 2003 Completed [facility] 00:00:00 [facility] Pneumococcal 7 2003 Completed [facility] Conjugate, PCV7 00:00:00 [place] [facility] (Prevnar7) [facility] DTAP 2003 Completed [facility] 00:00:00 [facility] Hep B, Adol or Pedi 2003 Completed [facility] Dosage 00:00:00 [facility] HIB 4 Dose Schedule 2003 Completed [facility] 00:00:00 [facility] Polio (IPV/OPV) 2003 Completed [facility] 00:00:00 [facility] Pneumococcal 7 2003 Completed [facility] Conjugate, PCV7 00:00:00 [place] [facility] (Prevnar7) [facility] DTAP 2003 Completed [facility] 00:00:00 [facility] Hep B, Adol or Pedi 2003 Completed [facility] Dosage 00:00:00 [facility] HIB 4 Dose Schedule 2003 Completed [facility] 00:00:00 [facility] Polio (IPV/OPV) 2003 Completed [facility] 00:00:00 [facility] Pneumococcal 7 2003 Completed [facility] Conjugate, PCV7 00:00:00 [place] [facility] (Prevnar7) [facility] DTAP 2003 Completed [facility] 00:00:00 [facility] Hep B, Adol or Pedi 2003 Completed [facility] Dosage 00:00:00 [facility] HIB 4 Dose Schedule 2003 Completed [facility] 00:00:00 [facility] Polio (IPV/OPV) 2003 Completed [facility] 00:00:00 [facility] Pneumococcal 7 2003 Completed [facility] Conjugate, PCV7 00:00:00 [place] [facility] (Prevnar7) [facility] DTAP 2003 Completed [facility] 00:00:00 [facility] Hep B, Adol or Pedi 2003 Completed [facility] Dosage 00:00:00 [facility] HIB 4 Dose Schedule 2003 Completed [facility] 00:00:00 [facility] Polio (IPV/OPV) 2003 Completed [facility] 00:00:00 [facility] Pneumococcal 7 2003 Completed [facility] Conjugate, PCV7 00:00:00 [place] [facility] (Prevnar7) [facility] DTAP 2003 Completed [facility] 00:00:00 [facility] Hep B, Adol or Pedi 2003 Completed [facility] Dosage 00:00:00 [facility] HIB 4 Dose Schedule 2003 Completed [facility] 00:00:00 [facility] Polio (IPV/OPV) 2003 Completed [facility] 00:00:00 [facility] Pneumococcal 7 2003 Completed [facility] Conjugate, PCV7 00:00:00 [place] [facility] (Prevnar7) [facility] DTAP 2003 Completed [facility] 00:00:00 [facility] Hep B, Adol or Pedi 2003 Completed [facility] Dosage 00:00:00 [facility] HIB 4 Dose Schedule 2003 Completed [facility] 00:00:00 [facility] Polio (IPV/OPV) 2003 Completed [facility] 00:00:00 [facility] Pneumococcal 7 2003 Completed [facility] Conjugate, PCV7 00:00:00 [place] [facility] (Prevnar7) [facility] DTAP 2003 Completed [facility] 00:00:00 [facility] Hep B, Adol or Pedi 2003 Completed [facility] Dosage 00:00:00 [facility] HIB 4 Dose Schedule 2003 Completed [facility] 00:00:00 [facility] DTAP 2003 Completed [facility] 00:00:00 [facility] Hep B, Adol or Pedi 2003 Completed [facility] Dosage 00:00:00 [facility] HIB 4 Dose Schedule 2003 Completed [facility] 00:00:00 [facility] Polio (IPV/OPV) 2003 Completed [facility] 00:00:00 [facility] Pneumococcal 7 2003 Completed [facility] Conjugate, PCV7 00:00:00 [place] [facility] (Prevnar[facility] Polio (IPV/OPV) 2003 Completed [facility] 00:00:00 [facility] Pneumococcal 7 2003 Completed [facility] Conjugate, PCV7 00:00:00 [place] [facility] (Prevnar7) [facility] DTAP 2003 Completed [facility] 00:00:00 [facility] Hep B, Adol or Pedi 2003 Completed [facility] Dosage 00:00:00 [facility] HIB 4 Dose Schedule 2003 Completed [facility] 00:00:00 [facility] Polio (IPV/OPV) 2003 Completed [facility] 00:00:00 [facility] Pneumococcal 7 2003 Completed [facility] Conjugate, PCV7 00:00:00 [place] [facility] (Prevnar7) [facility] DTAP 2003 Completed [facility] 00:00:00 [facility] Hep B, Adol or Pedi 2003 Completed [facility] Dosage 00:00:00 [facility] HIB 4 Dose Schedule 2003 Completed [facility] 00:00:00 [facility] Polio (IPV/OPV) 2003 Completed [facility] 00:00:00 [facility] Pneumococcal 7 2003 Completed [facility] Conjugate, PCV7 00:00:00 [place] [facility] (Prevnar7) [facility] DTAP 2003 Completed [facility] 00:00:00 [facility] Hep B, Adol or Pedi 2003 Completed [facility] Dosage 00:00:00 [facility] HIB 4 Dose Schedule 2003 Completed [facility] 00:00:00 [facility] Polio (IPV/OPV) 2003 Completed [facility] 00:00:00 [facility] Pneumococcal 7 2003 Completed [facility] Conjugate, PCV7 00:00:00 [place] [facility] (Prevnar7) [facility] DTAP 2003 Completed [facility] 00:00:00 [facility] Hep B, Adol or Pedi 2003 Completed [facility] Dosage 00:00:00 [facility] HIB 4 Dose Schedule 2003 Completed [facility] 00:00:00 [facility] Polio (IPV/OPV) 2003 Completed [facility] 00:00:00 [facility] Pneumococcal 7 2003 Completed [facility] Conjugate, PCV7 00:00:00 [place] [facility] (Prevnar7) [facility] DTAP 2003 Completed [facility] 00:00:00 [facility] Hep B, Adol or Pedi 2003 Completed [facility] Dosage 00:00:00 [facility] HIB 4 Dose Schedule 2003 Completed [facility] 00:00:00 [facility] Polio (IPV/OPV) 2003 Completed [facility] 00:00:00 [facility] Pneumococcal 7 2003 Completed [facility] Conjugate, PCV7 00:00:00 [place] [facility] (Prevnar7) [facility] DTAP 2003 Completed [facility] 00:00:00 [facility] Hep B, Adol or Pedi 2003 Completed [facility] Dosage 00:00:00 [facility] HIB 4 Dose Schedule 2003 Completed [facility] 00:00:00 [facility] Polio (IPV/OPV) 2003 Completed [facility] 00:00:00 [facility] Pneumococcal 7 2003 Completed [facility] Conjugate, PCV7 00:00:00 [place] [facility] (Prevnar7) [facility] DTAP 2003 Completed [facility] 00:00:00 [facility] Hep B, Adol or Pedi 2003 Completed [facility] Dosage 00:00:00 [facility] HIB 4 Dose Schedule 2003 Completed [facility] 00:00:00 [facility] Polio (IPV/OPV) 2003 Completed [facility] 00:00:00 [facility] Pneumococcal 7 2003 Completed [facility] Conjugate, PCV7 00:00:00 [place] [facility] (Prevnar7) [facility] DTAP 2003 Completed [facility] 00:00:00 [facility] Hep B, Adol or Pedi 2003 Completed [facility] Dosage 00:00:00 [facility] HIB 4 Dose Schedule 2003 Completed [facility] 00:00:00 [facility] Polio (IPV/OPV) 2003 Completed [facility] 00:00:00 [facility] DTAP 2003 Completed [facility] 00:00:00 [facility] Hep B, Adol or Pedi 2003 Completed [facility] Dosage 00:00:00 [facility] HIB 4 Dose Schedule 2003 Completed [facility] 00:00:00 [facility] Polio (IPV/OPV) 2003 Completed [facility] 00:00:00 [facility] Pneumococcal 7 2003 Completed [facility] Conjugate, PCV7 00:00:00 [place] [facility] (Prevnar7[facility] Pneumococcal 7 2003 Completed [facility] Conjugate, PCV7 00:00:00 [place] [facility] (Prevnar7) [facility] DTAP 2003 Completed [facility] 00:00:00 [facility] Hep B, Adol or Pedi 2003 Completed [facility] Dosage 00:00:00 [facility] HIB 4 Dose Schedule 2003 Completed [facility] 00:00:00 [facility] Polio (IPV/OPV) 2003 Completed [facility] 00:00:00 [facility] Pneumococcal 7 2003 Completed [facility] Conjugate, PCV7 00:00:00 [place] [facility] (Prevnar7) [facility] DTAP 2003 Completed [facility] 00:00:00 [facility] Hep B, Adol or Pedi 2003 Completed [facility] Dosage 00:00:00 [facility] HIB 4 Dose Schedule 2003 Completed [facility] 00:00:00 [facility] Polio (IPV/OPV) 2003 Completed [facility] 00:00:00 [facility] Pneumococcal 7 2003 Completed [facility] Conjugate, PCV7 00:00:00 [place] [facility] (Prevnar7) [facility] DTAP 2003 Completed [facility] 00:00:00 [facility] Hep B, Adol or Pedi 2003 Completed [facility] Dosage 00:00:00 [facility] HIB 4 Dose Schedule 2003 Completed [facility] 00:00:00 [facility] Polio (IPV/OPV) 2003 Completed [facility] 00:00:00 [facility] Pneumococcal 7 2003 Completed [facility] Conjugate, PCV7 00:00:00 [place] [facility] (Prevnar7) [facility] DTAP 2003 Completed [facility] 00:00:00 [facility] Hep B, Adol or Pedi 2003 Completed [facility] Dosage 00:00:00 [facility] HIB 4 Dose Schedule 2003 Completed [facility] 00:00:00 [facility] Polio (IPV/OPV) 2003 Completed [facility] 00:00:00 [facility] Pneumococcal 7 2003 Completed [facility] Conjugate, PCV7 00:00:00 [place] [facility] (Prevnar7[facility] DTAP 2003 Completed [facility] 00:00:00 [facility] Hep B, Adol or Pedi 2003 Completed [facility] Dosage 00:00:00 [facility] DTAP 2003 Completed [facility] 00:00:00 [facility] Hep B, Adol or Pedi 2003 Completed [facility] Dosage 00:00:00 [facility] HIB 4 Dose Schedule 2003 Completed [facility] 00:00:00 [facility] Polio (IPV/OPV) 2003 Completed [facility] 00:00:00 [facility] Pneumococcal 7 2003 Completed [facility] Conjugate, PCV7 00:00:00 [place] [facility] (Prevnar7[facility] HIB 4 Dose Schedule 2003 Completed [facility] 00:00:00 [facility] Polio (IPV/OPV) 2003 Completed [facility] 00:00:00 [facility] Pneumococcal 7 2003 Completed [facility] Conjugate, PCV7 00:00:00 [place] [facility] (Prevnar7) [facility] DTAP 2003 Completed [facility] 00:00:00 [facility] Hep B, Adol or Pedi 2003 Completed [facility] Dosage 00:00:00 [facility] HIB 4 Dose Schedule 2003 Completed [facility] 00:00:00 [facility] Polio (IPV/OPV) 2003 Completed [facility] 00:00:00 [facility] Pneumococcal 7 2003 Completed [facility] Conjugate, PCV7 00:00:00 [place] [facility] (Prevnar7) [facility] DTAP 2003 Completed [facility] 00:00:00 [facility] Hep B, Adol or Pedi 2003 Completed [facility] Dosage 00:00:00 [facility] HIB 4 Dose Schedule 2003 Completed [facility] 00:00:00 [facility] Polio (IPV/OPV) 2003 Completed [facility] 00:00:00 [facility] Pneumococcal 7 2003 Completed [facility] Conjugate, PCV7 00:00:00 [place] [facility] (Prevnar7[facility] DTAP 2003 Completed [facility] 00:00:00 [facility] Hep B, Adol or Pedi 2003 Completed [facility] Dosage 00:00:00 [facility] HIB 4 Dose Schedule 2003 Completed [facility] 00:00:00 [facility] Polio (IPV/OPV) 2003 Completed [facility] 00:00:00 [facility] Pneumococcal 7 2003 Completed [facility] Conjugate, PCV7 00:00:00 [place] [facility] (Prevnar7[facility] DTAP 2003 Completed [facility] 00:00:00 [facility] Hep B, Adol or Pedi 2003 Completed [facility] Dosage 00:00:00 [facility] HIB 4 Dose Schedule 2003 Completed [facility] 00:00:00 [facility] Polio (IPV/OPV) 2003 Completed [facility] 00:00:00 [facility] Pneumococcal 7 2003 Completed [facility] Conjugate, PCV7 00:00:00 [place] [facility] (Prevnar7[facility] DTAP 2003 Completed [facility] 00:00:00 [facility] Hep B, Adol or Pedi 2003 Completed [facility] Dosage 00:00:00 [facility] HIB 4 Dose Schedule 2003 Completed [facility] 00:00:00 [facility] Polio (IPV/OPV) 2003 Completed [facility] 00:00:00 [facility] Pneumococcal 7 2003 Completed [facility] Conjugate, PCV7 00:00:00 [place] [facility] (Prevnar7[facility] DTAP 2003 Completed [facility] 00:00:00 [facility] Hep B, Adol or Pedi 2003 Completed [facility] Dosage 00:00:00 [facility] HIB 4 Dose Schedule 2003 Completed [facility] 00:00:00 [facility] Polio (IPV/OPV) 2003 Completed [facility] 00:00:00 [facility] Pneumococcal 7 2003 Completed [facility] Conjugate, PCV7 00:00:00 [place] [facility] (Prevnar7[facility] DTAP 2003 Completed [facility] 00:00:00 [facility] Hep B, Adol or Pedi 2003 Completed [facility]ity of Dosage 00:00:00 [facility] HIB 4 Dose Schedule 2003 Completed [facility]ity of 00:00:00 [facility] Polio (IPV/OPV) 2003 Completed [facility] 00:00:00 [facility] Pneumococcal 7 2003 Completed [facility] of Conjugate, PCV7 00:00:00 [facility] (Prevnar7) [facility] DTAP 2003 Completed [facility] 00:00:00 [facility] Hep B, Adol or Pedi 2003 Completed [facility] of Dosage 00:00:00 [facility] HIB 4 Dose Schedule 2003 Completed [facility]ity of 00:00:00 [facility] Polio (IPV/OPV) 2003 Completed [facility] 00:00:00 [facility] Pneumococcal 7 2003 Completed [facility] of Conjugate, PCV7 00:00:00 [facility] (Prevnar7) [facility] DTAP 2003 Completed [facility] 00:00:00 [facility] Hep B, Adol or Pedi 2003 Completed [facility] of Dosage 00:00:00 [facility] HIB 4 Dose Schedule 2003 Completed [facility]ity of 00:00:00 [facility] Polio (IPV/OPV) 2003 Completed [facility] 00:00:00 [facility] Pneumococcal 7 2003 Completed [facility] of Conjugate, PCV7 00:00:00 [facility] (Prevnar7) [facility] Hep B, Adol or Pedi 2003 Completed [facility] Dosage 00:00:00 [facility] Hep B, Adol or Pedi 2003 Completed [facility] of Dosage 00:00:00 [facility] Hep B, Adol or Pedi 2003 Completed [facility] of Dosage 00:00:00 [facility] Hep B, Adol or Pedi 2003 Completed [facility] of Dosage 00:00:00 [facility] Hep B, Adol or Pedi 2003 Completed [facility] of Dosage 00:00:00 [facility] Hep B, Adol or Pedi 2003 Completed [facility] of Dosage 00:00:00 [facility] Hep B, Adol or Pedi [...] 2003 Completed [facility] of Dosage 00:00:00 [facility] Vital Signs Vital Name Observation Time Observation Value Comments Source Systolic blood 2023-02-21 00:31:00 124 mm[Hg] [facility] of pressure [facility] Diastolic blood 2023-02-21 00:31:00 83 mm[Hg] [facility] of pressure [facility] Heart rate 2023-02-21 00:31:00 102 /min [facility] Body temperature 2023-02-21 00:31:00 36.67 [facility] Respiratory rate 2023-02-21 00:31:00 16 /min [facility] Body height 2023-02-21 00:31:00 177.8 cm [facility] Body weight 2023-02-21 00:31:00 65.681 kg [facility] BMI 2023-02-21 00:31:00 20.78 kg/m2 [facility] Oxygen saturation in 2023-02-21 00:31:00 100 /min [facility] of Arterial blood by [place] [facility] Systolic blood 2023-01-23 18:12:00 118 mm[Hg] Univer [facility]ity of pressure [facility] Diastolic blood 2023-01-23 18:12:00 78 mm[Hg] [facility] of pressure [facility] Heart rate 2023-01-23 18:12:00 78 /min [facility] Body temperature 2023-01-23 18:12:00 36.94 [facility] Respiratory rate 2023-01-23 18:12:00 18 /min [facility] of [facility] Body height 2023-01-23 18:12:00 177.8 cm [facility] Body weight 2023-01-23 18:12:00 63.163 kg [facility] BMI 2023-01-23 18:12:00 19.98 kg/m2 [facility] Oxygen saturation in 2023-01-23 18:12:00 98 /min [facility] Arterial blood by [place] [facility] Systolic blood 2022-11-17 17:28:00 108 mm[Hg] Univer [facility]ity of pressure [facility] Diastolic blood 2022-11-17 17:28:00 69 mm[Hg] [facility] of pressure [facility] Heart rate 2022-11-17 17:28:00 83 /min [facility] Body temperature 2022-11-17 17:28:00 36.56 [facility] Respiratory rate 2022-11-17 17:28:00 18 /min Univ ers[facility] of [facility] Body height 2022-11-17 17:28:00 177.8 cm [facility] Body weight 2022-11-17 17:28:00 64.071 kg [facility] BMI 2022-11-17 17:28:00 20.27 kg/m2 [facility] Oxygen saturation in 2022-11-17 17:28:00 97 /min [facility] of Arterial blood by [facility] Systolic blood 2022-08-25 08:19:00 117 mm[Hg] Univer [facility]ity of pressure [facility] Diastolic blood 2022-08-25 08:19:00 71 mm[Hg] [facility]ive [facility] of pressure [facility] Heart rate 2022-08-25 08:19:00 70 /min [facility] Respiratory rate 2022-08-25 08:19:00 16 /min [facility] of [facility] Oxygen saturation in 2022-08-25 08:19:00 99 /min [facility] of Arterial blood by [facility] Body temperature 2022-08-25 07:10:00 36.33 [facility] Body height 2022-08-25 07:10:00 177.8 cm [facility] Body weight 2022-08-25 07:10:00 61.236 kg [facility] BMI 2022-08-25 07:10:00 19.37 kg/m2 [facility] Systolic blood 2022-04-03 21:50:00 124 mm[Hg] [facility]iver [facility] of pressure [facility] Diastolic blood 2022-04-03 21:50:00 85 mm[Hg] [facility]ive [facility] of pressure [facility] Heart rate 2022-04-03 21:50:00 96 /min [facility] Respiratory rate 2022-04-03 21:50:00 20 /min [facility] of [facility] Oxygen saturation in 2022-04-03 21:50:00 98 /min [facility] Arterial blood by [place] [facility] Body temperature 2022-04-03 20:01:00 37 [facility] Body height 2022-04-03 20:01:00 177.8 cm [facility] Body weight 2022-04-03 20:01:00 57.607 kg [facility] BMI 2022-04-03 20:01:00 18.22 kg/m2 [facility] Body mass index 2022-04-03 20:01:00 3.07 % Unive rsity of (BMI) [Percentile] [place] [facility] Per age and sex [facility] Systolic blood 2022-03-06 05:55:00 126 mm[Hg] [facility]ity of pressure [facility] Diastolic blood 2022-03-06 05:55:00 86 mm[Hg] [facility] of pressure [facility] Heart rate 2022-03-06 05:55:00 106 /min [facility] Body temperature 2022-03-06 05:55:00 37.22 [facility] Respiratory rate 2022-03-06 05:55:00 20 /min [facility] of [facility] Body height 2022-03-06 05:55:00 177.8 cm [facility] Body weight 2022-03-06 05:55:00 57.97 kg [facility] BMI 2022-03-06 05:55:00 18.34 kg/m2 [facility] Body mass index 2022-03-06 05:55:00 3.77 % Unive rsity of (BMI) [Percentile] [place] [facility] Per age and sex [facility] Oxygen saturation in 2022-03-06 05:55:00 98 /min [facility] Arterial blood by [place] [facility] Systolic blood 2021-11-10 22:00:00 128 mm[Hg] [facility] pressure [facility] Diastolic blood 2021-11-10 22:00:00 60 mm[Hg] Unive rsity of pressure [facility] Heart rate 2021-11-10 22:00:00 68 /min [facility]i ty of [facility] Respiratory rate 2021-11-10 22:00:00 18 /min Univ ersity of [facility] Oxygen saturation in 2021-11-10 22:00:00 100 /min [facility] Arterial blood by [place] [facility] Body temperature 2021-11-10 18:43:00 37.56 [facility] of [facility] Body height 2021-11-10 18:43:00 177.8 cm [facility]i ty of [facility] Body weight 2021-11-10 18:43:00 65.772 kg [facility]i [facility] of [facility] BMI 2021-11-10 18:43:00 20.81 kg/m2 [facility] of [facility] Body mass index 2021-11-10 18:43:00 31.43 % Unive rsity of (BMI) [Percentile] [facility] Per age and sex Branch Systolic blood 2021-11-09 21:11:00 111 mm[Hg] Univer sity of pressure [facility] Diastolic blood 2021-11-09 21:11:00 58 mm[Hg] Unive rsity of pressure [facility] Heart rate 2021-11-09 21:09:00 72 /min [facility]i ty of [facility] Body temperature 2021-11-09 21:09:00 36.67 [facility] of [facility] Respiratory rate 2021-11-09 21:09:00 18 /min Univ ersity of [facility] Body weight 2021-11-09 21:09:00 65.772 kg [facility]i ty of [facility] Oxygen saturation in 2021-11-09 21:09:00 98 /min [facility] Arterial blood by [place] [facility] Systolic blood 2021-05-25 00:09:00 104 mm[Hg] Univer sity of pressure [facility] Diastolic blood 2021-05-25 00:09:00 58 mm[Hg] Unive rsity of pressure [facility] Heart rate 2021-05-25 00:09:00 92 /min [facility]i ty of [facility] Body temperature 2021-05-25 00:09:00 37.33 [facility] Respiratory rate 2021-05-25 00:09:00 18 /min Univ ersity of [facility] Body height 2021-05-25 00:09:00 177.8 cm [facility] Body weight 2021-05-25 00:09:00 63.821 kg [facility] BMI 2021-05-25 00:09:00 20.19 kg/m2 [facility] Oxygen saturation in 2021-05-25 00:09:00 97 /min [facility] Arterial blood by [facility] Systolic blood 2021-05-24 00:50:00 109 mm[Hg] Univer [facility]ity of pressure [facility] Diastolic blood 2021-05-24 00:50:00 69 mm[Hg] [facility]ive [facility] of pressure [facility] Heart rate 2021-05-24 00:50:00 94 /min [facility] Body temperature 2021-05-24 00:50:00 37.06 [facility] Body height 2021-05-24 00:50:00 177.8 cm [facility] Body weight 2021-05-24 00:50:00 65.772 kg [facility] BMI 2021-05-24 00:50:00 20.81 kg/m2 [facility] Oxygen saturation in 2021-05-24 00:50:00 98 /min [facility] Arterial blood by [facility] Systolic blood 2021-04-21 21:41:00 118 mm[Hg] Univer [facility]ity of pressure [facility] Diastolic blood 2021-04-21 21:41:00 75 mm[Hg] [facility]ive [facility] of pressure [facility] Heart rate 2021-04-21 21:41:00 58 /min [facility] Body temperature 2021-04-21 21:41:00 36.78 [facility] Respiratory rate 2021-04-21 21:41:00 17 /min [facility] of [facility] Body height 2021-04-21 21:41:00 177.8 cm [facility] Body weight 2021-04-21 21:41:00 66.543 kg [facility] BMI 2021-04-21 21:41:00 21.05 kg/m2 [facility] Oxygen saturation in 2021-04-21 21:41:00 98 /min [facility] Arterial blood by [facility]xim[facility] Systolic blood 2021-03-15 14:28:00 119 mm[Hg] Univer [facility]ity of pressure [facility] Diastolic blood 2021-03-15 14:28:00 81 mm[Hg] Unive rsity of pressure [facility] Heart rate 2021-03-15 14:28:00 87 /min [facility] Body temperature 2021-03-15 14:28:00 37.33 [facility] Body height 2021-03-15 14:28:00 175.4 cm [facility] Body weight 2021-03-15 14:28:00 68 kg [facility] BMI 2021-03-15 14:28:00 22.10 kg/m2 [facility] Systolic blood 2021-02-17 20:22:00 115 mm[Hg] Univer [facility]ity of pressure [facility] Diastolic blood 2021-02-17 20:22:00 75 mm[Hg] [facility] of pressure [facility] Heart rate 2021-02-17 20:22:00 71 /min [facility] Body temperature 2021-02-17 20:22:00 36.17 [facility] Respiratory rate 2021-02-17 20:22:00 18 /min [facility] of [facility] Body weight 2021-02-17 20:22:00 67.223 kg [facility] BMI 2021-02-17 20:22:00 21.89 kg/m2 [facility] Oxygen saturation in 2021-02-17 20:22:00 97 /min [facility] Arterial blood by [facility] oxim[facility] Systolic blood 2021-02-11 03:40:00 107 mm[Hg] Univer [facility]ity of pressure [facility] Diastolic blood 2021-02-11 03:40:00 60 mm[Hg] Unive rsity of pressure [facility] Heart rate 2021-02-11 03:40:00 92 /min [facility] Body temperature 2021-02-11 03:40:00 36.67 [facility] Respiratory rate 2021-02-11 03:40:00 18 /min [facility] of [facility] Oxygen saturation in 2021-02-11 03:40:00 99 /min [facility] Arterial blood by [facility] P[facility] oxim[facility] Body height 2021-02-11 01:37:00 175.3 cm [facility] Body weight 2021-02-11 01:37:00 67.359 kg [facility] BMI 2021-02-11 01:37:00 21.93 kg/m2 [facility] Systolic blood 2020-11-16 19:57:00 114 mm[Hg] Univer [facility]ity of pressure [facility] Diastolic blood 2020-11-16 19:57:00 79 mm[Hg] Unive rsity of pressure [facility] Heart rate 2020-11-16 19:57:00 84 /min [facility] Body temperature 2020-11-16 19:57:00 36.5 [facility] Respiratory rate 2020-11-16 19:57:00 16 /min [facility] of [facility] Body weight 2020-11-16 19:57:00 68.584 kg [facility] Oxygen saturation in 2020-11-16 19:57:00 97 /min [facility] Arterial blood by [facility] P[facility] oxim[facility] Systolic blood 2020-11-16 19:57:00 114 mm[Hg] Univer [facility]ity of pressure [facility] Diastolic blood 2020-11-16 19:57:00 79 mm[Hg] [facility]ive [facility] of pressure [facility] Heart rate 2020-11-16 19:57:00 84 /min [facility] Body temperature 2020-11-16 19:57:00 36.5 [facility] Respiratory rate 2020-11-16 19:57:00 16 /min [facility] of [facility] Body weight 2020-11-16 19:57:00 68.584 kg [facility] Oxygen saturation in 2020-11-16 19:57:00 97 /min [facility] Arterial blood by [facility] P[facility] oxim[facility] Systolic blood 2020-10-08 04:09:00 115 mm[Hg] Univer [facility]ity of pressure [facility] Diastolic blood 2020-10-08 04:09:00 70 mm[Hg] [facility]ive [facility]ity of pressure [facility] Heart rate 2020-10-08 04:09:00 83 /min [facility] Body temperature 2020-10-08 04:09:00 36.67 [facility] Respiratory rate 2020-10-08 04:09:00 20 /min [facility] Body height 2020-10-08 04:09:00 175.3 cm [facility] Body weight 2020-10-08 04:09:00 63.504 kg [facility] BMI 2020-10-08 04:09:00 20.67 kg/m2 [facility] Oxygen saturation in 2020-10-08 04:09:00 98 /min [facility] Arterial blood by [facility] Systolic blood 2020-09-08 22:05:00 111 mm[Hg] Univer [facility]ity of pressure [facility] Diastolic blood 2020-09-08 22:05:00 68 mm[Hg] [facility]ive rsity of pressure [facility] Heart rate 2020-09-08 22:05:00 73 /min [facility] Respiratory rate 2020-09-08 22:05:00 20 /min [facility] Body height 2020-09-08 22:05:00 175.3 cm [facility] Body weight 2020-09-08 22:05:00 66.044 kg [facility] BMI 2020-09-08 22:05:00 21.50 kg/m2 [facility] Systolic blood 2020-09-06 02:54:00 125 mm[Hg] Univer [facility]ity of pressure [facility] Diastolic blood 2020-09-06 02:54:00 74 mm[Hg] Unive rsity of pressure [facility] Heart rate 2020-09-06 02:54:00 66 /min [facility] Body temperature 2020-09-06 02:54:00 36.94 [facility] Respiratory rate 2020-09-06 02:54:00 20 /min [facility] of [facility] Body height 2020-09-06 02:54:00 175.3 cm [facility] Body weight 2020-09-06 02:54:00 64.864 kg [facility] BMI 2020-09-06 02:54:00 21.12 kg/m2 [facility] Oxygen saturation in 2020-09-06 02:54:00 100 /min [facility] Arterial blood by [place] [facility] Systolic blood 2020-08-31 22:12:00 128 mm[Hg] Univer [facility]ity of pressure [facility] Diastolic blood 2020-08-31 22:12:00 86 mm[Hg] [facility]ive [facility]ity of pressure [facility] Heart rate 2020-08-31 22:12:00 87 /min [facility] Body temperature 2020-08-31 22:12:00 36.61 [facility] Respiratory rate 2020-08-31 22:12:00 18 /min [facility] of [facility] Body weight 2020-08-31 22:12:00 64.864 kg [facility] Oxygen saturation in 2020-08-31 22:12:00 97 /min [facility] Arterial blood by [place] [facility] Systolic blood 2020-08-23 15:05:00 125 mm[Hg] Univer [facility]ity of pressure [facility] Diastolic blood 2020-08-23 15:05:00 75 mm[Hg] Unive rsity of pressure [facility] Heart rate 2020-08-23 15:05:00 85 /min [facility] ty of [facility] Body temperature 2020-08-23 15:05:00 36.89 [facility] Respiratory rate 2020-08-23 15:05:00 16 /min [facility] of [facility] Body height 2020-08-23 15:05:00 175.3 cm [facility] Body weight 2020-08-23 15:05:00 65.318 kg [facility] BMI 2020-08-23 15:05:00 21.27 kg/m2 [facility] of [facility] Oxygen saturation in 2020-08-23 15:05:00 97 /min [facility] Arterial blood by [facility] Body weight 2020-08-22 11:40:00 65.772 kg [facility] BMI 2020-08-22 11:40:00 20.22 kg/m2 [facility] Systolic blood 2020-08-22 11:39:00 121 mm[Hg] Univer [facility]ity of pressure [facility] Diastolic blood 2020-08-22 11:39:00 82 mm[Hg] [facility]ive rsity of pressure [facility] Heart rate 2020-08-22 11:39:00 86 /min [facility] Body temperature 2020-08-22 11:39:00 36.72 [facility] Respiratory rate 2020-08-22 11:39:00 16 /min [facility] Body height 2020-08-22 11:39:00 180.3 cm [facility] Oxygen saturation in 2020-08-22 11:39:00 100 /min [facility] Arterial blood by [facility] Branch Systolic blood 2020-08-03 20:17:00 115 mm[Hg] Univer [facility]ity of pressure [facility] Diastolic blood 2020-08-03 20:17:00 74 mm[Hg] Unive rsity of pressure [facility] Heart rate 2020-08-03 20:17:00 78 /min [facility] Body temperature 2020-08-03 20:17:00 36.56 [facility] Respiratory rate 2020-08-03 20:17:00 16 /min [facility] Body height 2020-08-03 20:17:00 177.8 cm [facility] Body weight 2020-08-03 20:17:00 65.772 kg [facility] BMI 2020-08-03 20:17:00 20.81 kg/m2 [facility] Oxygen saturation in 2020-08-03 20:17:00 98 /min [facility] Arterial blood by [facility] Systolic blood 2020-07-30 21:23:00 122 mm[Hg] Univer sity of pressure [facility] Diastolic blood 2020-07-30 21:23:00 74 mm[Hg] Unive rsity of pressure [facility] Heart rate 2020-07-30 21:23:00 68 /min [facility] Body temperature 2020-07-30 21:23:00 36.61 [facility] Respiratory rate 2020-07-30 21:23:00 16 /min [facility] Body height 2020-07-30 21:23:00 175.3 cm [facility] Body weight 2020-07-30 21:23:00 66.225 kg [facility] BMI 2020-07-30 21:23:00 21.56 kg/m2 [facility] Oxygen saturation in 2020-07-30 21:23:00 97 /min [facility] Arterial blood by [place] [facility] Systolic blood 2020-07-08 13:40:00 121 mm[Hg] Univer [facility]ity of pressure [facility] Diastolic blood 2020-07-08 13:40:00 71 mm[Hg] Unive rsity of pressure [facility] Heart rate 2020-07-08 13:40:00 81 /min [facility] Body temperature 2020-07-08 13:40:00 36.5 [facility] Respiratory rate 2020-07-08 13:40:00 20 /min [facility] Body height 2020-07-08 13:40:00 176 cm [facility] Body weight 2020-07-08 13:40:00 66.225 kg [facility] BMI 2020-07-08 13:40:00 21.38 kg/m2 [facility] Oxygen saturation in 2020-07-08 13:40:00 96 /min [facility] Arterial blood by [facility] Pulse oxim[facility] Branch Systolic blood 2020-03-01 19:38:00 108 mm[Hg] Univer [facility]ity of pressure [facility] Diastolic blood 2020-03-01 19:38:00 71 mm[Hg] Unive rsity of pressure [facility] Heart rate 2020-03-01 19:38:00 78 /min [facility] Body temperature 2020-03-01 19:38:00 37.28 [facility] Body height 2020-03-01 19:38:00 172.7 cm [facility] Body weight 2020-03-01 19:38:00 58.968 kg [facility] BMI 2020-03-01 19:38:00 19.77 kg/m2 [facility] Oxygen saturation in 2020-03-01 19:38:00 97 /min [facility] Arterial blood by [facility] Systolic blood 2020-01-17 00:21:00 117 mm[Hg] Univer [facility]ity of pressure [facility] Diastolic blood 2020-01-17 00:21:00 83 mm[Hg] Unive [facility]ity of pressure [facility] Heart rate 2020-01-17 00:21:00 103 /min [facility] Body temperature 2020-01-17 00:21:00 36.78 [facility] Respiratory rate 2020-01-17 00:21:00 22 /min [facility] Body height 2020-01-17 00:21:00 172.7 cm [facility] Body weight 2020-01-17 00:21:00 57.153 kg [facility] BMI 2020-01-17 00:21:00 19.16 kg/m2 [facility] Oxygen saturation in 2020-01-17 00:21:00 97 /min University of Arterial blood by [facility] Pulse oximetry Branch Systolic blood 2020-01-14 16:00:00 116 mm[Hg] Univer sity of pressure [facility] Diastolic blood 2020-01-14 16:00:00 77 mm[Hg] Unive rsity of pressure [facility] Heart rate 2020-01-14 16:00:00 73 /min [facility]i ty [facility] Body temperature 2020-01-14 16:00:00 36.67 Gemma Univ ersity of [facility] Respiratory rate 2020-01-14 16:00:00 18 /min Univ ersity of [facility] Body weight 2020-01-14 16:00:00 57.743 kg [facility] BMI 2020-01-14 16:00:00 18.80 kg/m2 [facility] Oxygen saturation in 2020-01-14 16:00:00 98 /min University of Arterial blood by [facility] Pulse oximetry Branch Systolic blood 2020-01-13 23:27:00 110 mm[Hg] Univer sity of pressure [facility] Diastolic blood 2020-01-13 23:27:00 79 mm[Hg] Unive rsity of [facility] Heart rate 2020-01-13 23:27:00 84 /min [facility] Body temperature 2020-01-13 23:27:00 37.78 Gemma Univ ers[facility] Respiratory rate 2020-01-13 23:27:00 18 /min Univ ersity of [facility] Body height 2020-01-13 23:27:00 175.3 cm [facility] Body weight 2020-01-13 23:27:00 59.058 kg [facility] BMI 2020-01-13 23:27:00 19.23 kg/m2 [facility] Oxygen saturation in 2020-01-13 23:27:00 98 /min [facility] by [place] [facility] Pulse oximetry Branch Systolic blood 2020-01-10 18:02:00 128 mm[Hg] Univer sity of pressure [facility] Diastolic blood 2020-01-10 18:02:00 77 mm[Hg] Unive rsity of pressure [facility] Heart rate 2020-01-10 18:02:00 102 /min [facility] Body temperature 2020-01-10 18:02:00 36.94 Gemma Univ [facility] Respiratory rate 2020-01-10 18:02:00 20 /min Univ ersity [facility] Body height 2020-01-10 18:02:00 173.5 cm [facility] Body weight 2020-01-10 18:02:00 58.6 kg [facility] BMI 2020-01-10 18:02:00 19.47 kg/m2 [facility] Oxygen saturation in 2020-01-10 18:02:00 99 /min University of Arterial blood by [facility] [facility] Pulse oximetry Branch Systolic blood 2020-01-06 02:40:00 127 mm[Hg] Univer sity of pressure [facility] Diastolic blood 2020-01-06 02:40:00 77 mm[Hg] Unive rsity of pressure [facility] Heart rate 2020-01-06 02:40:00 78 /min [facility] Body temperature 2020-01-06 02:40:00 37 Gemma Univ ers[facility] Respiratory rate 2020-01-06 02:40:00 17 /min Univ ersity [facility] Body height 2020-01-06 02:40:00 172.7 cm [facility] Body weight 2020-01-06 02:40:00 44.725 kg [facility] BMI 2020-01-06 02:40:00 14.99 kg/m2 [facility] Oxygen saturation in 2020-01-06 02:40:00 97 /min [facility] blood by [place] [facility] Pulse oximetry Branch Systolic blood 2020-01-03 21:31:00 114 mm[Hg] Univer sity of pressure [facility] Diastolic blood 2020-01-03 21:31:00 71 mm[Hg] Unive rsity of pressure [facility] Heart rate 2020-01-03 21:31:00 95 /min [facility] Body temperature 2020-01-03 21:31:00 36.94 Gemma Univ ersity [facility] Respiratory rate 2020-01-03 21:31:00 18 /min Univ ersity of [facility] Body height 2020-01-03 21:31:00 172.7 cm [facility] Body weight 2020-01-03 21:31:00 61.326 kg [facility] BMI 2020-01-03 21:31:00 20.56 kg/m2 [facility] Oxygen saturation in 2020-01-03 21:31:00 98 /min [facility] Ar[facility]ial blood by [place] [facility] Pulse oximetry Branch Systolic blood 2019-07-09 15:23:00 108 mm[Hg] Univer sity of pressure [facility] Diastolic blood 2019-07-09 15:23:00 71 mm[Hg] Unive rsity of pressure [facility] Heart rate 2019-07-09 15:23:00 63 /min [facility]i [facility] Body temperature 2019-07-09 15:23:00 35.94 Gemma Univ ers[facility] Respiratory rate 2019-07-09 15:23:00 18 /min Univ ersity of [facility] Body height 2019-07-09 15:23:00 175.3 cm [facility] Body weight 2019-07-09 15:23:00 68.312 kg [facility] BMI 2019-07-09 15:23:00 22.24 kg/m2 [facility] Oxygen saturation in 2019-07-09 15:23:00 100 /min [facility] blood by [facility] Pulse oximetry Branch BP Systolic 2022-10-13 16:12:00 [...] Date / Time Performing Clinician Source Performed XR HAND 3+ VW RIGHT 2023-02-21 00:39:57 Helder Henry [facility] POCT URINALYSIS 2023-01-23 18:37:00 Nando [facility] o f [facility] PATIENT FINANCIAL 2023-01-23 18:07:09 Doctor Unassigned, [facility] POLICY [facility] ASSIGNMENT OF BENEFITS 2022-11-17 17:23:20 Doctor Unassigned, [facility] CONSENT/REFUSAL FOR 2022-10-12 02:54:29 Doctor Israel [facility] DIAGNOSIS AND TREATMENT [facility] CONSENT/REFUSAL FOR 2022-08-25 07:30:21 Doctor Israel [facility] DIAGNOSIS AND TREATMENT [place] [facility] RAPID STREP SCREEN FOR 2022-08-25 07:30:00 Shaun Driver [facility] GROUP A Medical Branch RAPID INFLUENZA A/B 2022-08-25 07:30:00 Shaun Driver [facility] Medical Branch COVID-19 (ID NOW RAPID 2022-08-25 07:30:00 Shaun Driver [facility] TESTING) Medical Branch CT CHEST PULMONARY 2022-04-03 21:23:47 Raghu Ham [facility] ANGIOGRAM Medical Branch COMP. METABOLIC PANEL 2022-04-03 21:02:00 Raghu Ham [facility] ([id number]) Medical Branch CBC WITH DIFF 2022-04-03 21:02:00 Raghu Ham [facility] CONSENT/REFUSAL FOR 2022-04-03 19:30:18 Doctor Israel [facility] DIAGNOSIS AND TREATMENT [facility] NOTICE OF PRIVACY 2022-03-06 05:34:03 Doctor Israel, [facility] [place] PRACT[facility] CONSENT/REFUSAL FOR 2022-03-06 05:33:00 Doctor Israel [facility] DIAGNOSIS AND TREATMENT [facility] URINALYSIS 2021-11-10 21:14:00 Vonda Haynes [facility] ASSIGNMENT OF BENEFITS 2021-11-10 18:35:01 Doctor David Wood [facility] CONSENT/REFUSAL FOR 2021-11-10 18:34:23 Doctor Israel [facility] DIAGNOSIS AND TREATMENT [facility] CONSENT/REFUSAL FOR 2021-11-09 20:52:55 Doctor Wood [facility] DIAGNOSIS AND TREATMENT [facility] NOTICE OF PRIVACY 2021-11-09 20:52:34 Doctor Wood [facility] POCT GRP A STREP 2021-05-25 00:19:[address] [facility] ([facility]) [facility] PEDI SKIN TESTING PANEL 2021-03-15 15:40:[address] [facility] XR CHEST 2 VW 2021-02-11 02:41:43 Sami Martinez [facility] CONSENT/REFUSAL FOR 2021-02-11 01:23:56 Doctor Wood [facility] DIAGNOSIS AND TREATMENT [facility] XR HAND 3+ VW RIGHT 2020-10-08 04:49:22 Akhil Mendez [facility] Medical Branch XR WRIST 3+ VW RIGHT 2020-10-08 04:49:22 Akhil Mendez [facility] NOTICE OF PRIVACY 2020-10-08 04:05:09 Doctor Israel [facility] CONSENT/REFUSAL FOR 2020-10-08 04:04:42 Doctor Wood [facility] DIAGNOSIS AND TREATMENT [facility] EXTERNAL PROVIDER RECORDS 2020-10-07 06:01:[address] [facility] XR HAND 3+ VW RIGHT 2020-09-06 03:21:50 Marlon Morales [facility] NOTICE OF PRIVACY 2020-09-06 02:46:06 Doctor Israel [facility] CONSENT/REFUSAL FOR 2020-09-06 02:45:47 Doctor Unajannet, [facility] DIAGNOSIS AND TREATMENT [facility] XR HAND 3+ VW RIGHT 2020-08-31 22:52:[address] [facility] MENINGOCOCCAL B VACCINE, 2020-08-31 22:28:[address] [facility] OMV, 2 DOSE, IM Medical Branch FLU VACC ([id number]), 6+ 2020-08-31 22:28:[address] [facility] MONTHS, IM, QUAD Medical Branch ASSIGNMENT OF BENEFITS 2020-08-23 14:56:06 Doctor Unassdavid, [facility] XR HAND 3+ VW RIGHT 2020-08-22 11:54:37 Moody Gr [facility] CONSENT/REFUSAL FOR 2020-08-22 11:30:15 Doctor Israel [facility] DIAGNOSIS AND TREATMENT [facility] CONSENT/REFUSAL FOR 2020-08-03 20:11:58 Doctor Unajannet, [facility] DIAGNOSIS AND TREATMENT [facility] CBC WITH DIFF 2020-07-12 12:55:00 She Bravo [facility] ASSIGNMENT OF BENEFITS 2020-07-12 12:40:19 Doctor Unassdavid, [facility] EXTERNAL PROVIDER RECORDS 2020-06-08 05:01:00 Doctor Wood, [facility] POCT GRP A STREP 2020-03-01 00:00:[address] [facility] (MOLECULAR) [facility] Branch XR HAND 3+ VW RIGHT 2020-01-17 00:40:03 Helder Henry [facility] ADC,CLC OR LCC ONLY - 2020-01-14 00:08:00 Domo Christianson [facility] INFLUENZA A & B DIRECT Medical B ranch ANTIGEN XR CHEST 2 VW 2020-01-13 23:57:51 Domo Christianson [place] [facility] [place] NOTICE OF PRIVACY 2020-01-13 23:12:46 Doctor Israel [facility] PRACTICES [facility] CONSENT/REFUSAL FOR 2020-01-13 23:12:27 Doctor Unassigned, [facility] DIAGNOSIS AND TREATMENT [facility] POCT FLU A AND B 2020-01-10 18:16:[address] [facility] (MOLECULAR) [facility] POCT GRP A STREP 2020-01-10 18:12:[address] [facility] (MOLECULAR) [facility] POCT FLU A AND B 2020-01-03 21:47:[address] [facility] (MOLECULAR) [facility] MENACTRA (MCV4-D) VACCINE 2019-07-09 16:22:51 Elissa Navarrete [facility] MENINGOCOCCAL B VACCINE, 2019-07-09 16:22:[address] [facility] OMV, 2 DOSE, IM [facility] NO SHOW OR MISSED 2019-07-09 15:13:32 Doctor Unassdavid, [facility] APPOINTMENT POLICY [place] [facility] ACKNOWLEDGEMENT EXTERNAL PROVIDER RECORDS 2019-07-02 05:01:00 Doctor Unassdavid, [facility] Plan of Care Planned Activity Planned Date Details Comments Source Goal Plan of Care Note [code = 68730-5] Goal Plan of Care Note [code = 31414-5] Goal Plan of Care Note [code = 69724-4] Goal Plan of Care Note [code = 18358-3] Goal Plan of Care Note [code = 33612-5] Goal Plan of Care Note [code = 64829-7] Goal Plan of Care Note [code = 77724-2] Encounters Start End Encounter Admission Attending Care Care Encounter Source Date/Time Date/Time Type Type Clinicians Facility Department ID 2022-01-27 [id number] 14:58:16 [id number] [facility] 2022-01-25 Outpatient [facility] [id number] [facility] 13:26:08 [id number] [facility] 2021-08-28 Emergency [facility] [id number] Univers [facility]:16[facility]-08-27 Emergency [facility] [id number] Univers 10:37:43 [facility] 2021-08-27 Emergency [facility] [id number] Univers 03:57:06 ity of [facility] 2021-08-27 Emergency [facility] [id number] Univers 00:53:49 ity of [facility] 2021-08-26 Emergency [facility] [id number] Univers 21:25:33 ity [facility] 2021-04-21 Inpatient EM EDDOC, HCACL DESI [id number] [facility] 15:48:00 GENERIC 48 [facility] 2020-06-04 Inpatient HCACL DESI [id number] [facility] 21:13:00 39 [facility] 2023-03-01 2023-03-01 Outpatient R PABLO [facility] [id number] Univers 09:30:00 09:30:00 ESTRADA [facility] 2023-02-20 2023-02-20 [facility] [id number] Univers 19:31:17 23:59:00 HELDER [facility] 2023-02-20 2023-02-20 [facility] 1..840.114 [id number] Univers 19:31:17 23:59:00 Encounter [facility] [id number] ity of [place] 4.2.7.2.686 Jeremi as ILIANA?BLEA [id number] Ok dicsaad CHILDRESS [address] MEDICAL OFFICE [facility] 2023-02-20 2023-02-20 Urgent Helder Henry [facility] 1..840.11 4 [id number] Univers 19:20:00 19:40:00 Care Unknown, Attending HEALTH [id number] ity of [place] 4.2.7.2.686 Jeremi as ILIANA?BLEA [id number] Ok dical [facility] [address] MEDICAL OFFICE BUILDING 2023-01-23 2023-01-23 Route Sales Person Lab, Ang - Db [facility] 1.2.840.1 14 [id number] Univers 13:45:00 14:00:00 Visit Unknown, Attending HEALTH [id number] ity of [place] 4.2.7.2.686 [place] ILIANA?BLEA [id number] Ok [facility] [address] MEDICAL OFFICE BUILDING 2023-01-23 2023-01-23 Outpatient R NANDO [facility] [id number] Univers 13:00:00 13:30:43 DOROTHEA ity [facility] 2023-01-23 2023-01-[address] [facility] 1.2.840.114 [id number] Univers 13:00:00 13:30:43 Care Unknown, Attending HEALTH [id number] ity of [place] 4.2.7.2.686 Jeremi as ILIANA?BLEA [phone] [address] OFFICE [facility] 2023-01-23 2023-01-23 Orders Doctor YANA 1.2.840.114 [id number] Univers 00:00:00 00:00:00 Only Unassigned, CORA [id number] ity of [place] [facility] 4.2.7.2.686 Jeremi as [id number] [address] 2023-01-23 2023-01-[address] [facility] 1.2.971.247 [id number] Univers 00:00:00 00:00:00 Dorothea HEALTH [id number] it y of [place] 4.2.7.2.686 Jeremi as ILIANA?BLEA [id number] [address] OFFICE [facility] 2022-11-17 2022-11-17 Outpatient R MOO [facility] [id number] Univers 11:40:00 11:48:26 REENU ity [facility] 2022-11-17 2022-11-17 Urgent MonteiroMalick [facility] 1.2.840.11 [id number] Univers 11:40:00 11:48:26 Care Unknown, Attending HEALTH [id number] ity of [place] 4.2.7.2.686 Jeremi as ILIANA?BLEA [id number] [address] OFFICE [facility] 2022-11-17 2022-11-17 Orders Doctor YANA 1.2.840.114 [id number] Univers 00:00:00 00:00:00 Only Unassigned, CORA [id number] ity of [place] [facility] 4.2.7.2.686 [facility] [phone] [facility] 009 Branch 2022-10-13 2022-10-13 Outpatient RONAL VILLEDA [id number] Miguel 16:04:36 16:04:36 [address] 2022-10-13 2022-10-13 Outpatient [id number] 00:00:00 00:00:00 Visit [id number] 2022-10-11 2022-10-11 Emergency X [facility] ERT [id number] Univers 21:22:00 21:29:00 ity of [facility] 2022-10-11 2022-10-11 Emergency [facility] 1.2.643.045 [id number] Univers 21:22:00 21:29:00 AMANDA 350.1.13.10 i ty [facility] 4.2.7.2.686 [facility] [id number] [address] 2022-08-25 2022-08-[address] [facility] ERT [id number] Univers 02:14:00 03:23:00 SAMI taylor [facility] 2022-08-25 2022-08-25 Emergency Bolasavanna Manniemary [facility] 1.2.840. 114 [id number] Univers 02:14:00 03:23:00 Cleo [facility] [id number] ity [facility] 4.2.7.2.686 [facility] [id number] [address] ([facility]) 2022-04-03 2022-04-[address] [facility] ERT [id number] Univers 15:03:00 16:58:00 RAGHU taylor [facility] 2022-04-03 2022-04-03 Emergency [facility] [id number] Univers 15:03:00 16:58:00 Raghu PATEL 350.1.13.10 ity [facility] 4.2.7.2.686 [facility] [id number] [address] 2022-03-06 2022-03-[address] [facility] ERT [id number] Univers 00:59:00 02:37:00 SAMI ity [facility] 2022-03-06 2022-03-[address] [facility] 1.2.840.114 [id number] Univers 00:59:00 02:37:00 Sami PATEL [id number] ity of [place] 4.2.7.2.6 [facility] [id number] [address] 2021-11-10 2021-11-10 Emergency X [facility] ERT [id number] Univers 12:47:00 16:01:00 [facility] 2021-11-10 2021-11-10 Emergency [facility] [id number] Univers 12:47:00 16:01:00 [facility] 350.1.13.10 i ty of [facility] 4.2.7.2.[address] [place] [id number] ([facility]) 2021-11-10 2021-11-10 Letter YANA Flores 1.2.840.114 [id number] Univers 00:00:00 00:00:00 (Out) Suzie SHEPHERD 350.1.13.10 it y of [facility] 4.2.7.[address] [place] [id number] 2021-11-09 2021-11-09 Emergency X [facility] ERT [id number] Univers 15:11:00 16:02:00 STEVEN itkay [facility] 2021-11-09 2021-11-09 Emergency [facility] [id number] [id number] Univers 15:11:00 16:02:00 Steven PATEL 350.1.13.10 i ty of [place] 4.2.7.2.[address] [place] [id number] 2021-06-27 2021-06-27 Outpatient R PREET [facility] [id number] Univers 09:30:00 09:30:00 CLEAVON ity [facility] 2021-06-07 2021-06-07 Letter YANA Flores 1.2.840.114 [id number] Univers 00:00:00 00:00:00 (Out) Suzie SHEPHERD 350.1.13.10 it y of HOSPITAL 4.2.7.2.686 Jeremi as [id number] [address] 2021-06-06 2021-06-06 Outpatient R CORNELIUS, [facility] [id number] Univers 20:00:00 20:00:00 OMAYEMI ity [facility] 2021-06-06 2021-06-06 Laboratory Nurse, Lc Mp1 Assessment [facility] 1.2.840.114 [id number] Univers 17:04:48 17:19:48 Only Unknown, Attending Chikis 350.1.13.10 ity [place] [address] [place] [id number] 2021-05-26 2021-05-[address] [facility] 1.2.391.145 [id number] Univers 00:00:00 00:00:00 Dorothea [facility] 350.1.13.10 it y of [facility] 4.2.7.2.686 Jeremi as Specialti [id number] [address] 2021-05-24 2021-05-24 Outpatient R UNKNOWN, [facility] [id number] Univers 19:15:00 19:15:00 ATTENDING ity [facility] 2021-05-24 2021-05-24 Urgent Ming Hinton [facility] 1.2.840.11 [id number] Univers 18:58:28 19:13:28 Care Unknown, Attending Chikis 350.1.13.10 ity [place] [address] [place] [id number] 2021-05-23 2021-05-23 Urgent Dorothea Collier [facility] 1.2.840.114 [id number] Univers 19:49:37 20:27:44 [facility] 350.1.13.10 ity of [place] 4.2.7.2.686 Jeremi as Professio [phone] Ok dical nal [address] 2021-05-23 2021-05-23 Outpatient R SERGIO [facility] [id number] Univers 19:40:00 19:40:00 YANA ity of [facility] 2021-04-21 2021-04-21 Urgent ShannonAndrea [facility] 1.2. 840.114 [id number] Univers 16:34:43 17:20:23 Care Unknown, Attending Chikis 350.1.13.10 ity [facility] 4.2.7.2.686 [place] [id number] [address] 2021-04-21 2021-04-21 Outpatient R ALEXY [facility] [id number] Univers 17:00:00 17:00:00 ATTENDING ity [facility] 2021-03-15 2021-03-[address] [facility] 1.2.840.114 [id number] Univers 09:09:03 10:55:23 Visit Cleavon SPECIALTY 350.1.13.[address] [facility] 4.2.7.2.686 [facility] [place] [facility] [place] [facility] [id number] [address] 2021-03-15 2021-03-15 Outpatient R PREET [facility] [id number] Univers 09:30:00 09:30:00 CLEAVON ity of [facility] 2021-02-17 2021-02-17 Office Landon [facility] 1.2.840.114 [id number] Univers 15:17:38 16:28:11 Visit Elissa Patel 350.1.13.10 ity [facility] 4.2.7.2.686 [place] [facility] [id number] Ok dical nal 225 [facility] 2021-02-17 2021-02-17 Outpatient R LANDON [facility] [id number] Univers 15:20:00 15:20:00 ELISSA taylor of [facility] 2021-02-10 2021-02-10 Emergency Juan [facility] 1.2.840.114 [id number] Univers 20:38:00 22:45:00 Sami Enrique Amanda 350.1.13.10 ity of [place] 4.2.7.2.686 [place] [phone] [facility] [address] 2021-01-26 2021-01-26 Outpatient Savanna NAVARRETE [facility] [id number] Univers 13:00:00 13:00:00 ELISSA taylor [facility] 2021-01-18 2021-01-[address] [facility] 1.2.840.114 [id number] Univers 00:00:00 00:00:00 Outreach Jay PRIMARY 350.1.13.10 i ty of [facility] 4.2.7.2.686 [place] [id number] Ok dic[address] 2021-01-18 2021-01-18 Patient Cj [facility] 1.2.840.114 [id number] 00:00:00 00:00:00 Outreach Jay PRIMARY 350.1.13.10 Andrea CARE 4.2.7.2.686 PAVILLION [id number] [facility] 2020-11-16 2020-11-16 Office Landon [facility] 1.2.840.114 [id number] Univers 13:51:19 14:30:58 Visit Elissa Patel 350.1.13.10 ity of [place].7.2.686 [place] Profess[place] [id number] Ok dicnc nal [address] [facility] 2020-11-16 2020-11-[address] [facility] 1.2.840.114 [id number] 13:51:19 14:30:58 Visit Elissa Patel 350.1.13.10 [place] 4.2.7.2.686 Professio [id number] [address] 2020-11-16 2020-11-16 Outpatient Savanna NAVARRETE [facility] [id number] Univers 13:00:00 13:00:00 ELISSA taylor [facility] 2020-10-07 2020-10-08 Emergency Andrea [facility] 1.2.840.114 [id number] Univers 22:14:00 00:15:00 Akhil Patel 350.1.13.10 i ty of [place] 4.2.7.2.686 [place] [phone] [facility] [address] 2020-10-07 2020-10-07 Orders Doctor YANA 1.2.840.114 [id number] Univers 00:00:00 00:00:00 Only Unassigned, CORA 350.1.13.10 ity of [place] [facility] 4.2.7.2.686 Jeremi as [id number] [facility] [address] 2020-09-22 2020-09-[address] [facility] 1.2.040.299 [id number] Univers 00:00:00 00:00:00 Elissa Duglas Patel 350.1.13.10 ity of [place] [place] [phone] [place] dical nal 225 [facility] 2020-09-20 2020-09-[address] [facility] 1.2.840.114 [id number] Univers 00:00:00 00:00:00 She Patel 350.1.13.10 i ty [place].2.[place] [phone] Ok dical nal 225 [facility] 2020-09-09 2020-09-09 Outpatient R SAMMY [facility] [id number] Univers 09:15:00 09:15:00 CLINT taylor [facility] 2020-09-08 2020-09-[address] [facility] 1.2.840.114 [id number] Univers 15:58:38 16:40:46 Visit [facility] 350.1.13.10 it y of Surgical 4.2.7.2.686 Jeremi as Specialti [phone] Ok dical es 198 [facility] 2020-09-08 2020-09-08 [facility] [id number] Univers 15:45:00 15:45:00 ESTRADA kay [facility] 2020-09-05 2020-09-05 Emergency Maryjane Valdivia [facility] 1..840.114 [id number] Univers 20:56:00 22:50:00 Estefani Patel 350.1.13.10 i [place] [phone] [facility] [address] 2020-08-31 2020-08-31 Hospital Landon [facility] 1.2.840.114 [id number] Univers 16:43:28 23:59:00 Encounter Elissa Patel 350.1.13.10 it[place] of [place].2.686 [place] [phone] [facility] [address] 2020-08-31 2020-08-31 Billing Only, Adc Pedi Jacob [facility] 1.2.84 0.114 [id number] Univers 16:27:05 16:42:05 Encounter Elissa Navarrete 350.1.1 3.10 ity of [place].2.[place] [phone] Ok dical nal [address] [place] [address] 2020-08-31 2020-08-[address] [facility] 1.2.840.114 [id number] Univers 16:08:39 16:30:52 Visit Elissa Patel 350.1.13.10 it[place].2.[place] [phone] Ok dical nal [address] [place] [address] 2020-08-31 2020-08-31 Outpatient R LANDON [facility] [id number] Univers 16:20:00 16:20:00 ELISSA taylor [facility] 2020-08-23 2020-08-[address] [facility] 1.2.840.114 [id number] Univers 09:57:24 10:33:56 Visit Elissa Patel 350.1.13.10 it[place] of [place].7.2.[place] [phone] Ok dical nal [address] [place] [address] 2020-08-23 2020-08-23 Outpatient R LANDON [facility] [id number] Univers 09:50:00 09:50:00 ELISSA taylor [facility] 2020-08-23 2020-08-23 Orders Doctor MILLAN 1.2.840.114 [id number] Univers 00:00:00 00:00:00 Only Unassigned, CORA 350.1.13.10 ity of [place] [facility] 4.2.7.2.686 Jeremi as [phone] [address] 2020-08-22 2020-08-[address] [facility] 1.2.353.675 [id number] Univers 06:45:00 07:29:00 Moody Patel 350.1.13.10 i ty of [place] 4.2.7.2.686 [place] [phone] [address] 2020-08-22 2020-08-22 Orders Doctor YANA 1.2.840.114 [id number] Univers 00:00:00 00:00:00 Only Unassigned, CORA 350.1.13.10 ity of [place] [facility] 4.2.7.2.686 Jeremi as [phone] [address] 2020-08-03 2020-08-03 Emergency [facility] 1.2.553.043 [id number] Univers 15:22:00 16:06:00 Steven Patel 350.1.13.10 i ty of [place] 4.2.7.2.686 [place] [phone] [address] 2020-08-03 2020-08-[address] [facility] 1.2.840.114 [id number] Univers 00:00:00 00:00:00 She Patel 350.1.13.10 i ty [place] 4.2.7.2.686 [place] [facility] [phone] [facility] 225 [facility] 2020-08-03 2020-08-03 Orders Doctor YANA 1.2.840.114 [id number] Univers 00:00:00 00:00:00 Only Unassigned, CORA 350.1.13.10 ity of [place] [facility] 4.2.7.2.686 Jeremi as [phone] [address] 2020-07-30 2020-07-30 Urgent Provider, [facility] 1.2.840.114 [id number] Univers 16:14:47 16:34:47 [facility] 350.1.13.10 ity of [place] 4.2.7.2.686 Jeremi as Professio [phone] Ok dical nal 044 [facility] 2020-07-30 2020-07-30 Outpatient R [facility] [id number] Univers 16:20:00 16:20:00 ity of [facility] 2020-07-19 2020-07-19 Telephone [facility] 1.2.840.114 [id number] Univers 00:00:00 00:00:00 She [place] 350.1.13.10 i ty of [place] 4.2.7.2.[place] [phone] Ok dical nal 225 [facility] 2020-07-16 2020-07-16 Telephone [facility] 1.2.840.114 [id number] Univers 00:00:00 00:00:00 She [place] 350.1.13.10 i ty [place] 4.2.7.2.[place] [phone] Ok dical nal 225 [facility] 2020-07-14 2020-07-14 Telephone [facility] 1.2.840.114 [id number] Univers 00:00:00 00:00:00 She [place] 350.1.13.10 i ty [place] 4.2.7.2.[place] [phone] Ok dical nal 225 [facility] 2020-07-12 2020-07-12 Route Sales Person Isi Dumont [facility] Main [facility] 1.2.8 40.114 [id number] Univers 07:40:59 07:55:59 Visit Elissa Navarrete 350.1.13. 10 ity of [place] 4.2.7.2.[place] [phone] [facility] 353 [facility] 2020-07-12 2020-07-12 Outpatient R [facility] [id number] Univers 07:30:00 07:30:00 ity of [facility] 2020-07-12 2020-07-12 Orders Doctor MILLAN 1.2.840.114 [id number] Univers 00:00:00 00:00:00 Only Unassigned, CORA 350.1.13.10 ity of [place] [facility] 4.2.7.2.686 Jeremi as [phone] [address] 2020-07-09 2020-07-09 [facility] [id number] Univers 14:20:00 14:20:00 SHE ity [facility] 2020-07-08 2020-07-[address] [facility] 1.2.840.114 [id number] Univers 08:29:50 09:58:04 Encounter She [place] 350.1.13.10 ity of [place] 4.2.7.2.[place] [phone] Ok dical nal 225 [facility] 2020-07-08 2020-07-[address] [facility] 1.2.840.114 [id number] Univers 08:14:30 09:56:18 Visit Shejordan [place] 350.1.13.10 i ty of [place] 4.2.7.2.[place] [phone] Ok dical nal 225 [facility] 2020-07-08 2020-07-08 Outpatient [facility] [id number] Univers 08:00:00 08:00:00 SHE [facility] 2020-06-08 2020-06-08 Orders Doctor YANA 1.2.840.114 [id number] Univers 00:00:00 00:00:00 Only Unassigned, CORA 350.1.13.10 ity of [place] [facility] 4.2.7.2.686 Jeremi as [phone] [address] 2020-03-01 2020-03-02 Urgent Pob1, Acute Care Clinic [facility] 1. 2.840.114 [id number] Univers 14:20:34 14:03:28 [facility] 350.1.1 3.10 ity of [place] 4.2.7.2.686 Jeremi as Professio [phone] Ok dical [facility] [address] 2020-03-01 2020-03-01 Outpatient R [facility] [id number] Univers 14:40:00 14:40:00 ity of [facility] 2020-02-26 2020-02-[address] [facility] 1..478.200 [id number] Univers 00:00:00 00:00:00 Elissa A [place] 350.1.13.10 ity of [place].2.[place] [phone] Ok dic[address] 2020-02-12 2020-02-12 Telemedici [facility] 1.2.840.114 [id number] Univers 08:22:27 14:38:55 ne Visit Elissa Patel 350.1.13.10 ity of [place] 4[place]2.7.2.[place] [phone] Ok dic[address] 2020-02-12 2020-02-12 Outpatient R LANDON [facility] [id number] Univers 13:50:00 13:50:00 [facility] 2020-01-22 2020-01-22 Outpatient R LANDON [facility] [id number] Univers 13:30:00 13:30:00 [facility] 2020-01-20 2020-01-[address] [facility] 1..684.067 [id number] Univers 00:00:00 00:00:00 Elissa Patel 350.1.13.10 ity of [place].2.[place] [phone] [address] 2020-01-16 2020-01-16 Outpatient R CARL [facility] [id number] Univers 19:30:00 23:59:00 HELDRE ity [facility] 2020-01-16 2020-01-16 [facility] 1..840.114 [id number] Univers 19:30:00 23:59:00 Encounter [facility] 350.1.13.10 ity of Surgical 4.2.7.2.686 Jeremi as Specialti [phone] [facility] 808 [facility] 2020-01-16 2020-01-16 Urgent Helder Henry [facility] 1.2.840.11 [id number] Univers 19:21:04 20:03:54 Care Unknown, Attending Health 350.1.13.10 ity of Surgical 4.2.7.2.686 Jeremi as Specialti [phone] Me dical es 370 [facility] 2020-01-16 2020-01-[address] [facility] 1.2.840.114 [id number] Univers 19:25:00 19:29:00 Encounter [facility] 350.1.13.10 ity of Surgical 4.2.7.2.686 Jeremi as Specialti [phone] Me dical es 808 [facility] 2020-01-14 2020-01-[address] [facility] 1.2.840.114 [id number] Univers 10:55:24 11:26:49 Visit Elissa Patel 350.1.13.10 ity of [place] 4.2.7.2.686 [place] [facility] [phone] Me dical nal 225 [facility] 2020-01-14 2020-01-14 Outpatient R LANDON [facility] [id number] Univers 11:00:00 11:00:00 ELISSA taylor [facility] 2020-01-13 2020-01-[address] [facility] ERT [id number] Univers 18:29:38 20:26:00 DOMO taylor [facility] 2020-01-13 2020-01-[address] [facility] 1.2.840.114 [id number] Univers 18:29:38 20:26:00 Domo Patel 350.1.13.10 i ty of [place] 4.2.7.2.686 [place] [phone] [facility] chen [address] 2020-01-13 2020-01-13 Orders Doctor MILLAN 1.2.840.114 [id number] Univers 00:00:00 00:00:00 Only Unassigned, CORA 350.1.13.10 ity of [place] [facility] 4.2.7.2.686 Jeremi as [phone] [facility] chen [address] 2020-01-10 2020-01-10 Urgent Phuc Tracee F [facility] 1. 2.840.114 [id number] Univers 12:57:48 13:12:48 Care Unknown, Attending [facility] 350.1.13.10 ity of [place] 4.2.7.2.686 [place] [phone] [address] 2020-01-10 2020-01-10 Outpatient R UNKNOWN, [facility] [id number] Univers 13:00:00 13:00:00 ATTENDING ity [facility] 2020-01-09 2020-01-[address] [facility] 1.2.457.016 [id number] Univers 00:00:00 00:00:00 Elissa Patel 350.1.13.10 ity of [place] 4[place]2.7.2.[place] [phone] Ok dic[address] 2020-01-08 2020-01-[address] [facility] 1.2.840.114 [id number] Univers 00:00:00 00:00:00 She Patel 350.1.13.10 i ty of [place] 4.2.7.2.[place] [phone] Ok dical [facility] 2020-01-05 2020-01-05 Urgent Michelle Melo [facility] 1.2.840.114 [id number] Univers 21:33:40 22:04:00 Care Unknown, Attending [facility] 350.1.13.10 ity of Surgical 4.2.7.2.686 Jeremi as Specialti [phone] Ok dical es 370 [facility] 2020-01-05 2020-01-05 Outpatient R UNKNOWN, [facility] [id number] Univers 21:45:00 21:45:00 ATTENDING ity [facility] 2020-01-03 2020-01-03 Urgent NilsHudson [facility] 1.2.840.11 [id number] Univers 15:30:54 15:45:54 Care Unknown, Attending Health 350.1.13.10 ity of Surgical 4.2.7.2.686 Jeremi as Specialti [phone] Ok dical es 370 [facility] 2020-01-03 2020-01-03 Outpatient R ALEXY [facility] [id number] Univers 15:30:00 15:30:00 ATTENDING itkay [facility] 2019-09-29 2019-09-29 Outpatient R LANDON [facility] [id number] Univers 16:34:16 23:59:00 ELISSA taylor [facility] 2019-07-09 2019-07-09 Billing Only, Adc Kwame James [facility] 1.2.84 0.114 [id number] Univers 11:41:16 11:55:54 Encounter Elissa Navarrete 350.1.1 3.10 ity of [place] 4.2.7.2.686 [place] [phone] [address] 2019-07-09 2019-07-09 Office Landon [facility] 1.2.840.114 [id number] Univers 10:14:29 11:39:59 Visit Elissa Patel 350.1.13.10 ity of [place] 4.2.7.2.[place] [phone] [address] 2019-07-09 2019-07-09 Orders Doctor YANA 1.2.840.114 [id number] Univers 00:00:00 00:00:00 Only Unassigned, CORA 350.1.13.10 ity of [place] [facility] 4.2.7.2.686 Jeremi as [phone] [address] 2019-07-02 2019-07-02 Orders Doctor YANA 1.2.840.114 [id number] Univers 00:00:00 00:00:00 Only Unassigned, CORA 350.1.13.10 ity of [place] [facility] 4.2.7.2.686 Jeremi as [phone] [address] 2019-06-09 2019-06-09 Telephone Lawrence [facility] 1.2.840.114 [id number] Univers 00:00:00 00:00:00 She Patel 350.1.13.10 i ty of [place] 4[place]2.7.2.[place] [phone] Me dical nal [address] Results Test Description Test Time Test Comments Results Result Comments Source POCT URINALYSIS W SPECIFIC GRAVITY 2023-01-23 18:37:00 Test Item Value Reference Range Interpretation Comme nts POCT U SP GRAV (test code = 3255) 1.025 mg/dl 1.005-1.025 POCT PH U (test code = 3254) 6 mg/dl 5-8 POCT U LEUK EST (test code = 3263) neg Negative - Negative POCT U NIT (test code = 3262) neg Negative - Negative POCT U PROT (test code = 3259) neg Negative - Negative POCT U GLU (test code = 3256) norm Negative - Negative POCT U KETONE (test code = 3258) neg Negative - Negative POCT U UROBILI (test code = 3260) norm 0.2-1 POCT U BILI (test code = 3261) neg Negative - Negative POCT U BLD (test code = 3257) trace Negative - Negative POCT U COLOR (test code = 3266) yellow POCT U APPEAR (test code = 3267) clear Lab Interpretation (test code = 40994-6) Abnormal [facility]. METABOLIC PANEL (79576)2022-04-03 21:24:26 Test Item Value Reference Range Interpretation Comments NA (test code = 141 mmol/L 135-145 9901364073) K (test code = 4.7 mmol/L 3.5-5.0 3380217476) CL (test code = 101 mmol/L 98-108 4188217155) CO2 TOTAL (test code = 20 mmol/L 23-31 L 7054872465) AGAP (test code = 2-16 H 4096370949) BUN (test code = 13 mg/dL 7-23 8542937207) GLUCOSE (test code = 110 mg/dL 70-110 6967430331) CREATININE (test code = 0.88 mg/dL 0.60-1.25 1637211710) TOTAL BILI (test code = 1.0 mg/dL 0.1-1.3 5479433293) CALCIUM (test code = 10.4 mg/dL 8.6-10.6 1806504623) T PROTEIN (test code = 9.3 g/dL 6.3-8.2 H 0031678498) ALBUMIN (test code = 5.7 g/dL 3.5-5.0 H 0254405566) ALK PHOS (test code = 86 U/L 34-122 7441017785) ALTv (test code = 12 U/L 5-50 2-6) AST(SGOT) (test code = 18 U/L 13-40 0866344913) eGFR (test code = mL/min/1.73m2 4285842260) KARI (test code = KARI) Association of Glomerular Filtration Rate (GFR) and Staging of Kidney Disease* + --+ --+ ------+| GFR (mL/min/1.73 m2) ?| With Kidney Damage ?| ?Without Kidney Damage+ --------+ --------+ +| ?>90 ?| ?Stage one ?| ? Normal ?+ ---+ ---+ -------+| ?60-89 ?| ?Stage two ?| ? Decreased GFR ? + --+ --+ ------+| ?30-59 ?| ?Stage three ?| ? Stage three ? + --+ --+ ------+| ?15-29 ?| ?Stage four ? | ? Stage four ?+ ---+ ---+ -------+| ?<15 (or dialysis) ? ?| ?Stage five ? | ? Stage five ?+ ---+ ---+ -------+ *Each stage assumes the associated GFR [...] or abnormalities in imaging tests). Lab Interpretation Abnormal (test code = 80954-9) [facility] WITH [id number] 21:15:47 Test Item Value Reference Range Interpretation Comments WBC (test code = See_Comment [Automated 8490-2) message] The sy stem which generated this [...] (test code = 38.4 fL 38.5-49.0 L 36852-5) RDW-CV (test code = 12.4 % 11.5-14.0 788-0) PLT (test code = See_Comment H [Automated 777-3) message] The sy stem which generated this result transmitted reference range : 133 - 320 10*3/ ?L. The reference r bakari was not used to interpret this result as normal/abnormal . MPV (test code = 10.1 fL 9.3-12.9 49268-2) NRBC/100 WBC (test See_Comment [Automat ed code = 5023141922) message] The system which generated this result transmitted reference range : 0.0 - 10.0 /100 WBCs. The refer ence range was not u sed to interpret th is result as normal/abnormal . NRBC x10^3 (test code <0.01 See_Comment [Auto mated = 9620801330) message] The s ystem which generated this result transmitted reference range : 10*3/?L. The reference range was not used to interpret this result as normal/abnormal . GRAN MAT (NEUT) % 77.6 % (test code = 770-8) IMM GRAN % (test code 0.20 % = 2394205969) LYMPH % (test code = 15.8 % 736-9) MONO % (test code = 5.8 % 5905-5) EOS % (test code = 0.0 % 713-8) BASO % (test code = 0.6 % 706-2) GRAN MAT x10^3(ANC) 7.05 10*3/uL 1.50-10.30 (test code = 6077042728) IMM GRAN x10^3 (test <0.03 0.00-0.06 code = 3644816602) LYMPH x10^3 (test code 1.44 10*3/uL 0.70-7.40 = 731-0) MONO x10^3 (test code 0.53 10*3/uL 0.00-0.50 H = 742-7) EOS x10^3 (test code = <0.03 0.00-0.40 711-2) BASO x10^3 (test code 0.05 10*3/uL 0.00-0.10 = 704-7) Lab Interpretation Abnormal (test code = 94618-2) [facility] ([facility]LEC[facility])2021-05-25 00:19:00 Test Item Value Reference Range Interpretation Comments POCT GP A STREP (test code = positive Negative - Negative 42068-4) Lab Interpretation (test code = Abnormal 99753-6) [facility] SKIN TESTING [id number] 15:40:00 Applied 40 skin test to Peggy Bowen's back. All antigens supplied by [facility] at 1:20. Multi-test application. All skin tests are expressed as horizontal x perpendicular diameter in mm. Histamine (1mg/ml) ?wheal: 4x4 mmSaline: wheal: 0 mmGrass Mix: (GS7) ([place] Blue/Smita, [place] Fescue, Orchard, Perennial Largo, Redtop, Sweet Vernal, Leonel) wheal: 0mm;flare:0mm Grass (Bahia): wheal: 0mm;flare:0mm Grass (Bermuda): wheal: 0mm;flare:0mm Grass (Vijay): wheal: 0mm;flare:0mm Ragweed: ?wheal: 0 mm; flare: 0 mmTree (Samoan Elm): wheal: 0 mm; flare: 0 mm Tree (Torey): wheal: 0 mm; flare: 0 mmTree ([place]):?wheal: 0 mm; flare: 0 mmTree (Pecan): wheal: 0 mm; flare: 0 mmWeed (Dock-Mathews): ?wheal: 0 mm; flare: 0 mm Cockroach: [...] Fusarium,Mucor) wheal: 0 mm; flare: 0 mm Orlinda: (Cocklebur): wheal: 0 mm; flare: 0 mmWeed: (Baccharis): wheal: 0 mm; flare: 0 mmWeed: (Careless/Amaranth): ?wheal: 0 mm; flare: 0 mmWeed: (Bengali Plantain): wheal: 0 mm; flare: 0 mmWeed: (Justice's Quarter): wheal: 0 mm; flare: 0 mmWeed: (Nettle): wheal: 0 mm; flare: 0 mmWeed: (Pigweed):wheal: 0 mm; flare: 0 mmWeed: (Djiboutian Thistle): wheal: 0 mm; flare: 0 mmWeed: (Chance Mix): wheal: 0 mm; flare: 0 mmWeed: (Wingscale): wheal: 0 mm; flare: 0 mm Tree (Bayberry/Wax [place]): wheal: 0 mm; flare: 0 mmTree ([place]/Maple): wheal: 0 mm; flare: 0 mmTree ([place] Elm): wheal: 0 mm; flare: 0 mmTree ([place]): wheal: 0 mm; flare: 0 mmTree ([place]): wheal: 0 mm; flare: 0 mmTree ([place]): wheal: 0 mm; flare: 0 mmTree (Champion): wheal: 0 mm; flare: 0 mmTree (Sweet Gum): wheal: 0 mm; flare: 0 mmTree (Cutler): wheal: 0 mm; flare: 0 mmTree ([place], black): wheal: 0 mm; flare: 0 mm Positive tests: Histamine, all other tests [facility] SKIN TESTING [id number] 15:40:00Applied 40 skin test to Peggy Bowen's back. All antigens supplied by [facility] at 1:20. Multi-test application. All skin tests are expressed as horizontal x perpendicular diameter in mm. Histamine (1mg/ml) ?wheal: 4x4 mmSaline: wheal: 0 mmGrass Mix: (GS7) ([place] Blue/Smita, [place] Fescue, Orchard, Perennial [place], Redtop, Sweet Vernal, Leonel) wheal: 0mm;flare:0mm Grass (B[place]): wheal: 0mm;flare:0mm Grass ([place]): wheal: 0mm;flare:0mm Grass (Vijay): wheal: 0mm;flare:0mm Ragweed: ?wheal: 0 mm; flar e: 0 mmTree (Samoan Elm): wheal: 0 mm; flare: 0 mm Tree ([place]): wheal: 0 mm; flare: 0 mmTree ([place]):?wheal: 0 mm; flare: 0 mmTree (Pecan): wheal: 0 mm; flare: 0 mmWeed (Dock-Mathews): ?wheal: 0 mm; flare: 0 mm Cockroach: [...] Fusarium,Mucor) wheal: 0 mm; flare: 0 mm Orlinda: (Cocklebur): wheal: 0 mm; flare: 0 mmWeed: (Baccharis): wheal: 0 mm; flare: 0 mmWeed: (Careless/Amaranth): ?wheal: 0 mm; flare: 0 mmWeed: (Bengali Plantain): wheal: 0 mm; flare: 0 mmWeed: ([place]'s [place]): wheal: 0 mm; flare: 0 mmWeed: (Nettle): wheal: 0 mm; flare: 0 mmWeed: (Pigweed):wheal: 0 mm; flare: 0 mmWeed: (Djiboutian Thistle): wheal: 0 mm; flare: 0 mmWeed: (Chance Mix): wheal: 0 mm; flare: 0 mmWeed: (Wingscale): wheal: 0 mm; flare: 0 mm Tree (Bayberry/Wax [place]): wheal: 0 mm; flare: 0 mmTree ([place]/Maple): wheal: 0 mm; flare: 0 mmTree ([place] Elm): wheal: 0 mm; flare: 0 mmTree ([place]): wheal: 0 mm; flare: 0 mmTree ([place]): wheal: 0 mm; flare: 0 mmTree ([place]): wheal: 0 mm; flare: 0 mmTree (Champion): wheal: 0 mm; flare: 0 mmTree (Sweet Gum): wheal: 0 mm; flare: 0 mmTree ([place]ler): wheal: 0 mm; flare: 0 mmTree ([place], black): wheal: 0 mm; flare: 0 mm Positive tests: Histamine, all other tests negative [facility] [id number] 15:40:00 Applied 40 skin test to Peggy Bowen's back. All antigens supplied by [facility] at 1:20. Multi-test application. All skin tests are expressed as horizontal x perpendicular diameter in mm. Histamine (1mg/ml) ?wheal: 4x4 mmSaline: wheal: 0 mmGrass Mix: (GS7) ([place] Blue/[place], [place] Fescue, Orchard, Perennial Largo, Redtop, Sweet Vernal, Leonel) wheal: 0mm;flare:0mm Grass (Bahia): wheal: 0mm;flare:0mm Grass ([place]): wheal: 0mm;flare:0mm Grass (Vijay): wheal: 0mm;flare:0mm Ragweed: ?wheal: 0 mm; flare: 0 mmTree (Samoan Elm): wheal: 0 mm; flare: 0 mm Tree ([place]): wheal: 0 mm; flare: 0 mmTree ([place]):?wheal: 0 mm; flare: 0 mmTree (Pecan): wheal: 0 mm; flare: 0 mmWeed (Dock-Mathews): ?wheal: 0 mm; flare: 0 mm Cockroach: [...] Fusarium,Mucor) wheal: 0 mm; flare: 0 mm Orlinda: ([place]le[place]): wheal: 0 mm; flare: 0 mmWeed: (Baccharis): wheal: 0 mm; flare: 0 mmWeed: ([place]): ?wheal: 0 mm; flare: 0 mmWeed: (Bengali Plantain): wheal: 0 mm; flare: 0 mmWeed: ([place]): wheal: 0 mm; flare: 0 mmWeed: (Nettle): wheal: 0 mm; flare: 0 mmWeed: (Pigweed):wheal: 0 mm; flare: 0 mmWeed: ([place] Thistle): wheal: 0 mm; flare: 0 mmWeed: (Chance Mix): wheal: 0 mm; flare: 0 mmWeed: (W[place]cale): wheal: 0 mm; flare: 0 mm Tree ([place]): wheal: 0 mm; flare: 0 mmTree ([place]/Maple): wheal: 0 mm; flare: 0 mmTree ([place]m): wheal: 0 mm; flare: 0 mmTree ([place]): wheal: 0 mm; flare: 0 mmTree ([place]): wheal: 0 mm; flare: 0 mmTree ([place]): wheal: 0 mm; flare: 0 mmTree ([place]): wheal: 0 mm; flare: 0 mmTree (Sweet [place]um): wheal: 0 mm; flare: 0 mmTree ([place]): wheal: 0 mm; flare: 0 mmTree ([place], black): wheal: 0 mm; flare: 0 mm Positive tests: Histamine, all other tests negativeUnKim[facility] 2 [id number] 03:11:24Impression: No acute abnormalities evident. RL: [id number] End of Report Ordering Physician: ?SAMI MARTINEZ History: ?Short of breath Technique: Chest, 2 views Comparison: January 13, 2020 Findings: ? The lungs are clear. No pleural effusions are evident. Heart size isnormal. The superior mediastinal silhouette is unremarkable for age. Noacute bony abnormalities are evident. [facility], Radiant Results Inft User - 02/10/2021 10:12 PM CDTOrderingPhysician: SAMI TORRESUNKATTYHistory: Short of breathTechnique: Chest, 2 viewsComparison: January 13, 2020Findings: The lungs are clear. No pleural effusions are evident. Heart size isnormal. The superior mediastinal silhouette is unremarkable for age. Noacute bony abnormalities are evident.IMPRESSIONImpression:No acute abnormalities evident.RL: 460End of Report [facility] VW [id number] 04:14:05 No acute osseous abnormality of the right hand. RL: 460 AFC: [id number] Ordering physician: MARLON MORALES INDICATION: Right hand [...] osseous abnormality of the right hand.RL: 460AF: [id number] signed by Alexa Adams MD, PhD at 09/05/2020 10:14 PM [facility] VW [id number] 22:54:40HISTORY: Self inflicted injury, persistent swelling. FINDINGS: [...] No acute fracture or dislocation in right hand.[facility] WITH [id number] 13:16:00 Test Item Value Reference Range Interpretation Comments WBC (test code = See_Comment [Automated 4990-2) message] The sy stem which generated this result transmitted reference range : 4.50 - 13.50 10*3/?L. The reference range was not used to interpret this result as normal/abnormal . RBC (test code = See_Comment H [Automated 549-8) message] The sy stem which generated this [...] (test code = 36.5 fL 38.5-49 L 41013-4) RDW-CV (test code = 12.2 % 11.5-14 788-0) PLT (test code = See_Comment [Automated 777-3) message] The sy stem which generated this result transmitted reference range : 133 - 320 10*3/ ?L. The reference r bakari was not used to interpret this result as normal/abnormal . MPV (test code = 10.2 fL 9.3-12.9 41175-0) NRBC/100 WBC (test See_Comment [Automat ed code = 1466894085) message] The system which generated this result transmitted reference range : 0.0 - 10.0 /100 WBCs. The refer ence range was not u sed to interpret th is result as normal/abnormal . NRBC x10^3 (test code <0.01 See_Comment [Auto mated = 5700888108) message] The s ystem which generated this result transmitted reference range : 10*3/?L. The reference range was not used to interpret this result as normal/abnormal . GRAN MAT (NEUT) % 45.2 % (test code = 770-8) IMM GRAN % (test code 0.00 % = 6653712472) LYMPH % (test code = 44.6 % 736-9) MONO % (test code = 7.7 % 5905-5) EOS % (test code = 1.9 % 713-8) BASO % (test code = 0.6 % 706-2) GRAN MAT x10^3(ANC) 3.06 10*3/uL 1.5-10.3 (test code = 0111055243) IMM GRAN x10^3 (test <0.03 0-0.06 code = 7436755543) LYMPH x10^3 (test code 3.02 10*3/uL 0.7-7.4 = 731-0) MONO x10^3 (test code 0.52 10*3/uL 0-0.5 H = 742-7) EOS x10^3 (test code = 0.13 10*3/uL 0-0.4 711-2) BASO x10^3 (test code 0.04 10*3/uL 0-0.1 = 704-7) Lab Interpretation Abnormal (test code = 06784-4) [facility] XR ANKLE 3 + V [id number] 22:42:00 FAX: Cruz Hanna MD [phone] [place]: St: [facility] FAX: Uriel Cook MD [phone] ------- Name: ANRDÉSPEGGY ESCOBEDO [facility] : 2005 Age/S: 14/M [address] [place] [address] Unit #: [id number] Loc: [place] [address] Phys: Uriel Cook MD Acct: [id number] Dis Date: Status: REG ER PHONE #: [phone] Exam Date: 06/04/2020 [facility] FAX #: [phone] Reason: injury to ankle EXAMS: CPT CODE: [id number] XR ANKLE 3 + V LT [address] Procedure: Left Ankle Radiographs. Clinical Indication: Left ankle injury. Comparison: Left ankle radiographs 12/25/2014 FINDINGS: The 3 views of the left ankle demonstratenormal alignment without fractures or dislocations. The tibiotalar [...] RT(R) Trnscrd Date/Time/By: 06/04/2020 (2241) : By: RosinaRRogerTDO Orig Print D/T: S: 06/04/2020 (4920) PAGE 1 Signed ReportPOCT GRP A STREP (MOLECULAR)2020-03-01 19:46:00 Test Item Value Reference Range Interpretation Comments POCT GP A STREP (test code = pos Negative - Negative 40717-8) [facility]2020-03-01 19:46:00 Test Item Value Reference Range Interpretation Comments POCT GP A STREP (test code = pos Negative - Negative 34452-5) [facility]+ VW [id number] 00:54:09 No acute bony abnormality. Preliminary Report [...] reviewed this study and agree with the abovereport.[facility] ADC,CLC OR LCC ONLY - INFLUENZA A & B DIRECT [id number] 00:45:00 Test Item Value Reference Range Interpretation Comments Influenza A (test code = 32537-8) Negative Negative Influenza B (test code = 94693-6) Negative Negative Lab Interpretation (test code = Normal 38945-9) [facility] CHEST 2 [id number] 00:33:36No acute cardiopulmonary disease RL: 6190 End [...] is normal.IMPRESSIONNo acutecardiopulmonary diseaseRL: 6190End of report [facility] ([facility])2020-01-10 18:29:00 Test Item Value Reference Range Interpretation Comments POCT INFLUENZA A (test negative Negative - code = 3840) Negative POCT INFLUENZA B (test negative Negative - code = 3841) Negative KARI (test code = KARI) accurate development and interpretation of all internal controls Lab Interpretation Normal (test code = 28551-2) [facility] acute hospital GRP A STREP (MOLECULAR)2020-01-10 18:19:00 Test Item Value Reference Range Interpretation Comments POCT GP A STREP (test positive Negative - code = 68658-3) Negative KARI (test code = KARI) accurate development and interpretation of all internal controls Lab Interpretation Abnormal (test code = 90278-4) General acute hospital FLU A AND B (MOLECULAR)2020-01-03 21:57:00 Test Item Value Reference Range Interpretation Comments POCT INFLUENZA A (test neg Negative - code = 3840) Negative POCT INFLUENZA B (test neg Negative - code = 3841) Negative KARI (test code = KARI) accurate development and interpretation of all internal controls Lab Interpretation Normal (test code = 45529-7) [facility]
--- NOTE | 2023-03-11 00:08 | EDPHYS ---
Physician Documentation [facility] Name: Peggy Piper Age: 17 yrs Sex: Male : 2005 Arrival Date: 03/10/2023 Time: 22:59 Bed 14 Private MD: ED Physician Helen Santiago HPI: 03/10 23:21 This 17 yrs old Male presents to ER via Ambulatory with complaints of Bee Sting. kb 23:21 The patient presents with localized swelling, rash, redness of skin. Onset: The kb symptoms/episode began/occurred just prior to arrival. Associated signs and symptoms: Pertinent positives: rash, swelling. Possible causes: bees. At home the patient or guardian has treated the symptoms with nothing. Severity of symptoms: At their worst the symptoms were mild in the emergency department the symptoms are unchanged. The patient has not experienced similar symptoms in the past. The patient has not recently seen a physician. 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 Historical: - Allergies: 23:08 Bees; kl 23:08 Codeine; kl - PMHx: 23:08 ADD/ADHD; Asthma; Bronchitis; Cannabinoid Hyperemesis Syndrome; PTSD; kl - PSHx: 23:08 L arm SX; kl - Immunization history:: Adult Immunizations not up to date. - Social history:: Smoking status: Patient/guardian denies using tobacco. ROS: 23:21 Constitutional: Negative for fever, chills, and weight loss. kb 23:21 Skin: Positive for erythema, rash, of the left bicep. 23:21 All other systems are negative. Exam: 23:21 Constitutional: This is a well developed, well nourished patient who is awake, alert, kb and in no acute distress. Head/Face: Normocephalic, atraumatic. ENT: Moist Mucous membranes Cardiovascular: Regular rate and rhythm with a normal S1 and S2. No gallops, murmurs, or rubs. No pulse deficits. Respiratory: Respirations even and unlabored. No increased work of breathing. Talking in full sentences MS/ Extremity: Pulses equal, no cyanosis. Neurovascular intact. Full, normal range of motion. Neuro: Awake and alert, GCS 15, oriented to person, place, time, and situation. Moves all extremities. Normal gait. 23:21 Skin: rash a mild rash is noted, rash can be described as erythematous, on the left bicep. Vital Signs: 23:06 BP 125 / 78; Pulse 65; Resp 18; Temp 97.1(TE); Pulse Ox 96% on R/A; Weight 63.5 kg; kl Height 5 ft. 10 in. ; 03/11 00:05 BP 131 / 80; Pulse 71; Resp 17 S; Pulse Ox 97% on R/A; lg3 03/10 23:06 Body Mass Index 20.09 (63.50 kg, 177.8 cm) kl MDM: 03/10 23:05 Patient medically screened. kb 03/11 00:06 Differential diagnosis: anaphylaxis, urticaria. Data reviewed: vital signs, nurses kb notes. Counseling: I had a detailed discussion with the patient and/or guardian regarding: the historical points, exam findings, and any diagnostic results supporting the discharge/admit diagnosis, the need for outpatient follow up, a family practitioner, to return to the emergency department if symptoms worsen or persist or if there are any questions or concerns that arise at home. 03/10 23:09 Order name: IV Start; Complete Time: 23:24 kb Administered Medications: 03/10 23:23 Drug: Famotidine IVP 20 mg Route: IVP; [facility] 03/11 00:04 Follow up: Response: No adverse reaction [facility] 03/10 23:23 Drug: MethylPrednisoLONE IVP 125 mg Route: IVP; Site: [facility] 03/11 00:04 Follow up: Response: No adverse reaction [facility] 03/10 23:23 Drug: NS 0.9% IV 1000 ml Route: IV; Rate: 1000 ml; Site: right forearm; 3 03/11 00:04 Follow up: IV Status: Completed infusion; IV Intake: 1000ml 3 Disposition: 07:07 STAFF ATTESTATION STATEMENT: I was immediately available onsite in the emergency sd2 department for consultation in the care of this patient. I did not see or examine this patient. Helen Santiago MD. Disposition Summary: 03/11/23 00:07 Discharge Ordered Location: Home kb Condition: Stable kb Diagnosis - Bee allergy status kb Followup: kb - With: Emergency Department - When: As needed - Reason: Worsening of condition Followup: kb - With: Private Physician - When: 2 - 3 days - Reason: Recheck today's complaints, Continuance of care, Re-evaluation by your physician Discharge Instructions: - Discharge Summary Sheet kb - Bee, Wasp, or Hornet Sting, Adult kb Forms: - Medication Reconciliation Form kb - Thank You Letter kb - Antibiotic Education kb - Prescription Opioid Use kb Prescriptions: - Pepcid 20 mg Oral Tablet - take 1 tablet by ORAL route every 12 hours for 5 days; 10 tablet; Refills: 0, kb Product Selection Permitted - Prednisone 20 mg Oral Tablet - take 1 tablet by ORAL route once daily for 5 days; 5 tablet; Refills: 0, kb Product Selection Permitted Signatures: Savanna Lay FNP-C FNP-Nanette Castro RN RN Darling Sheriff RN RN lg3 Helen Santiago MD MD sd2
--- NOTE | 2023-03-11 00:08 | ER ---
Nurse's Notes [facility] Name: Peggy Piper Age: 17 yrs Sex: Male : 2005 Arrival Date: 03/10/2023 Time: 22:59 Bed 14 Private MD: Diagnosis: Bee allergy status Presentation: 03/10 23:06 Chief complaint: Patient states: stung by bee approx 15 min DIRECTOR CLIENT could not find epi pen. Coronavirus screen: Vaccine status: Patient reports being unvaccinated. Ebola Screen: Patient negative for fever greater than or equal to 101.5 degrees Fahrenheit, and additional compatible Ebola Virus Disease symptoms. Onset: The symptoms/episode began/occurred 15 minute(s) ago. Anaphylaxis evaluation, the patient reports or I have noted the following symptoms which indicate a significant risk of anaphylaxis: no signs or symptoms of anaphylaxis were noted. Initial Sepsis Screen: Does the patient meet any 2 criteria? No. Patient's initial sepsis screen is negative. Does the patient have a suspected source of infection? No. Patient's initial sepsis screen is negative. Risk Assessment: Do you want to hurt yourself or someone else? Patient reports no desire to harm self or others. Onset of symptoms was March 10, 2023 at 22:45. 23:06 Method Of Arrival: Ambulatory 23:06 Acuity: CORRINA 3 kl Triage Assessment: 23:08 General: Appears in no apparent distress. Behavior is calm, cooperative. Pain: Complains of pain in left tricep. Derm: bee sting to left upper arm. Historical: - Allergies: 23:08 Bees; kl 23:08 Codeine; kl - PMHx: 23:08 ADD/ADHD; Asthma; Bronchitis; Cannabinoid Hyperemesis Syndrome; PTSD; kl - PSHx: 23:08 L arm SX; kl - Immunization history:: Adult Immunizations not up to date. - Social history:: Smoking status: Patient/guardian denies using tobacco. Screenin:21 [facility] ED Fall Risk Assessment (Adult) History of falling in the last 3 months, lg3 including since admission No falls in past 3 months (0 pts). Abuse screen: Denies threats or abuse. Denies injuries from another. Nutritional screening: No deficits noted. Tuberculosis screening: No symptoms or risk factors identified. Assessment: 23:21 General: Appears in no apparent distress. comfortable, Behavior is cooperative, fussy. lg3 Pain: Complains of pain in left bicep. Neuro: No deficits noted. Boogie Agitation-Sedation Scale (RASS): 0 - Alert and Calm Level of Consciousness is awake, alert, obeys commands, Oriented to person, place, time, situation. Cardiovascular: No deficits noted. Denies chest pain, shortness of breath, Capillary refill < 3 seconds Clubbing of nail beds is absent JVD is absent Patient's skin is warm and dry. Respiratory: No deficits noted. Airway is patent Trachea midline Respiratory effort is even, unlabored, Respiratory pattern is regular, symmetrical, Breath sounds are clear bilaterally. GI: No deficits noted. No signs and/or symptoms were reported involving the gastrointestinal system. Abdomen is flat, non-distended. : No deficits noted. No signs and/or symptoms were reported regarding the genitourinary system. EENT: No deficits noted. No signs and/or symptoms were reported regarding the EENT system. Derm: Skin is intact, is healthy with good turgor, Skin is dry, Skin is normal, Skin temperature is warm insect sting noted to inside of left upper arm with redness and swelling present. Musculoskeletal: No deficits noted. No signs and/or symptoms reported regarding the musculoskeletal system. Circulation, motion, and sensation intact. Range of motion: intact in all extremities. 03/11 00:04 Reassessment: Patient appears in no apparent distress at this time. No changes from lg3 previously documented assessment. Patient and/or family updated on plan of care and expected duration. Pain level reassessed. Patient is alert, oriented x 3, equal unlabored respirations, skin warm/dry/pink. Patient states feeling better. Patient states symptoms have improved. Vital Signs: 03/10 23:06 BP 125 / 78; Pulse 65; Resp 18; Temp 97.1(TE); Pulse Ox 96% on R/A; Weight 63.5 kg; Height 5 ft. 10 in. ; 03/11 00:05 BP 131 / 80; Pulse 71; Resp 17 S; Pulse Ox 97% on R/A; lg3 03/10 23:06 Body Mass Index 20.09 (63.50 kg, 177.8 cm) ED Course: 03/10 23:01 Patient arrived in ED. jj6 23:05 Savanna Lay FNP-C is [facility]. kb 23:05 Helen Santiago MD is Attending Physician. kb 23:08 Triage completed. taina 23:21 Darling Cronin, RN is Primary Nurse. lg3 23:21 Patient has correct armband on for positive identification. Bed in low position. Call lg3 light in reach. Side rails up X 1. Client placed on continuous cardiac and pulse oximetry monitoring. NIBP monitoring applied. Door closed. Noise minimized. Warm blanket given. Family accompanied patient. 23:21 Inserted saline lock: 22 gauge in right forearm, using aseptic technique. lg3 03/11 00:12 No provider procedures requiring assistance completed. IV discontinued, intact, lg3 bleeding controlled, No redness/swelling at site. Pressure dressing applied. Administered Medications: 03/10 23:23 Drug: Famotidine IVP 20 mg Route: IVP; Site: right forearm; lg3 03/11 00:04 Follow up: Response: No adverse reaction lg3 03/10 23:23 Drug: MethylPrednisoLONE IVP 125 mg Route: IVP; Site: right forearm; lg3 03/11 00:04 Follow up: Response: No adverse reaction 3 03/10 23:23 Drug: NS 0.9% IV 1000 ml Route: IV; Rate: 1000 ml; Site: right forearm; lg3 03/11 00:04 Follow up: IV Status: Completed infusion; IV Intake: 1000ml lg3 Medication: 00:12 VIS not applicable for this client. lg3 Intake: 00:04 IV: 1000ml; Total: 1000ml. lg3 Outcome: 00:07 Discharge ordered by . kb 00:12 Discharged to home ambulatory. lg3 00:12 Condition: stable 00:12 Discharge instructions given to patient, Instructed on discharge instructions, follow up and referral plans. medication usage, Demonstrated understanding of instructions, follow-up care, medications, Prescriptions given X 2. 00:12 Patient left the ED. lg3 Signatures: Savanna Lay FNP-C FNP-Ckb Lewis, Kimberly RN Darling Molina RN RN lg3 Ladi Gipson jj6 Corrections: (The following items were deleted from the chart) 00:05 00:04 Reassessment: Patient appears in no apparent distress at this time. No changes lg3 from previously documented assessment. Patient and/or family updated on plan of care and expected duration. Pain level reassessed. Patient is alert, oriented x 3, equal unlabored respirations, skin warm/dry/pink. Patient states feeling better. Patient states symptoms have improved. lg3
[2023-03-11 00:52] VITALS: TEMP 97.1
[2023-03-11 00:54] VITALS: BP 131/80; O2SAT 97
== END 2023-03-11 00:12 | disposition home or self-care (01) ==
LOC: ER 22:59
DX: R21 Rash and other nonspecific skin eruption (principal); Z91.030 Bee allergy status; Z88.5 Allergy status to narcotic agent
CPT/HCPCS: 96361; 96375; 96374; 99284; J2930; J7030

== ENCOUNTER 2023-04-02 09:36 | Emergency (ER) | payer OTHER, SELFPAY ==
--- OUTSIDE RECORDS SUMMARY | 2023-04-02 10:05 | XMS REPORT | Continuity of Care Document ---
:2005 Author Organization [facility] t Address [address] [facility] [address] [place] [address] Care Team Providers Name Role Phone RodriguezMiladys Mayen Primary Care Physician [phone] EDDO, GENERIC FOR EDM Attending Clinician Unavailable ESTRADA SHAH Attending Clinician Unavailable HELDER HENRY Attending Clinician Unavailable Helder Henry PA-C Attending Clinician Unknown, Attending Attending Clinician Unavailable Lab, Ang - Db Attending Clinician Unavailable Dorothea Collier MD Attending Clinician DOROTHEA COLLIER Attending Clinician Unavailable Doctor Unassigned, [place] Attending Clinician Unavailable MALICK CORTÉS Attending Clinician Unavailable Malick Mendez Attending Clinician SAMI GALLO Attending Clinician Unavailable Shaun Driver DO Attending Clinician Sami Gallo MD Attending Clinician RAGHU HAM Attending Clinician Unavailable Raghu Ham APN Attending Clinician IBIKUNLE, FOLUSHO F Attending Clinician Unavailable Ibrossunle CONTINUOUS CONVEYOR SCREEN DRIER, Folusho F Attending Clinician VONDA HAYNES Attending Clinician Unavailable Vonda Haynes NP Attending Clinician Mark SANDERS, Suzie Augustin Attending Clinician Unavailable STEVEN MARIEE R Attending Clinician Unavailable Steven Staples R Attending Clinician CARLOS OVIEDO Attending Clinician Unavailab AMANDA Lockwood Attending Clinician Unavailable Nurse, [facility] Mp1 Assessment Attending Clinician Unavailable UNKNOWN, ATTENDING Attending Clinician Unavailable Jamaal CONROY, Ming Newby Attending Clinician Sergio LOTT, Yana Attending Clinician YANA HILL Attending Clinician Unavailable Shannon Villanueva PA-C, Vincent M Attending Clinician [phone] Carlos Oviedo MD Attending Clinician [phone] Elissa Navarrete MD Attending Clinician ELISSA NAVARRETE Attending Clinician Unavailable Jay Corona DO Attending Clinician Akhil Carpio Attending Clinician She Harden Attending Clinician [place] Attending Clinician Unavailable Estrada Forte Attending Clinician Maryjane Bartholomew Attending Clinician Only, Adc Kwame James Attending Clinician Unavailable Moody Gr DO Attending Clinician Provider, [facility] Attending Clinician Unavailable Divina Vasquez Attending Clinician Pob, Adc Lab Main Attending Clinician Unavailable SHE BRAVO Attending Clinician Unavailable Pob1, Acute [facility] Attending Clinician Unavailable Ladi Ruano MD Attending Clinician [phone] DOMO CHRISTIANSON Attending Clinician Unavailable Domo German Attending Clinician Phuc CONTINUOUS CONVEYOR SCREEN DRIER, Tracee Nunez Attending Clinician Kameron CONTINUOUS CONVEYOR SCREEN DRIER, Michelle Attending Clinician Hudson Wray MD Attending Clinician Cruz Crow Admitting Clinician Unavailable RAGHU HAM Admitting Clinician Unavailable DOMO CHRISTIANSON Admitting Clinician Unavailable ELISSA NAVARRETE Admitting Clinician Unavailable Payers Payer Name Policy Type Policy Number Effective Date Expiration Date S [facility] [id number] CHOICE - CHIP/STAR (MEDICAID) [facility] STAR [id number] 2017 00:00:00 Problems Condition Condition Condition Status Onset Resolution Last Treating Co mments Source Name Details Category Date Date Treatment Clinician Date Chronic Chronic Disease Active Overview: Univ ers rhinitis rhinitis 03-18 Formattin ity of 00:00: g of this [place] note Medical might be Branch different from the original. 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 Update 03/15/2021 allergy specialis t refilled EPI pen and recommend s testing to determine his benefits of desensiti zing treatment . 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 Costochond Costochond Disease Active Last U meagan vidal, 5- Assessmen ity of acute acute 00:00: t & Plan: [address] Medical g of this Branch note might be different from the original. I suspect this is secondary to his persisten t cough. Address this issue today and will monitor. Recommend ed as needed use of ibuprofen or acetamino phen for relief of this chest pain. Other Other Disease Active [facility] atopic atopic 11-28 Assessmen ity of dermatitis dermatitis 00:00: t & Plan: [address] Medical g of this Branch note [...] cleansing the hands. Reduce use of hand web search evaluator when practical . Notify if rash does not improve with the use of topical corticost eroid over the next week. Anxiety Anxiety Disease Active Univers 9-10 ity of 00:00: [place] [id number] Medical Branch PTSD PTSD Disease Active Univers (post-trau (post-trau 9-10 it y of noemi matenoc 00:00: [place] stress stress 00 Medical disorder) disorder) Bran ch Recurrent Recurrent Disease Active Overview: [facility] chest pain chest pain 4-22 Patient i ty of 00:00: saw Dr. Francisco Guerra with Medical [facility] - pulmonolo gy on 02/25/2020 - recommend ed CT of the chest due to chronic cough for 2 months and substance abuse history. Recommend ed NBA daily at bedtime, tobacco cessation and return office visit in 4-6 weeks. Instabilit Instabilit Disease Active U nivers y of y of 4-22 ity of shoulder shoulder 00:00: [place] joint, joint, 00 Medical unspecifie unspecifie Br anch d d laterality laterality Aggressive Aggressive Disease Active 2019- U willisers behavior behavior 4 ity of 00:00: Medical Branch Opposition Opposition Disease Active U nivers al al 02-17 ity of behavior behavior 00:00: [place] Medical Branch Opposition Opposition Disease Active U nivers al al 02-17 ity of behavior behavior 00:00: Medical Branch Mood Mood Disease Active Univers disturbanc disturbanc 01-04 it y of e e 00:00: Medical Branch Academic/e Academic/e Disease Active U willisers ducational ducational 01-04 it y of problem problem 00:00: Medical Branch Attention Attention Disease Active Overview: Univers deficit deficit 1-02 Formattin ity o f hyperactiv hyperactiv 00:00: g of this [place] ity ity 00 note Medical disorder disorder might be Bran ch (ADHD) (ADHD) different from the original. ICD10 Diagnosis Term Library Circulation Clerk Utility Asthma Asthma Disease Active Overview: Anjum s 2-16 Intermitt ity of 00:00: [id number] Diagnosis Medical Term Branch Library Circulation Clerk Utility Allergies, Adverse Reactions, Alerts Allergy Allergy Status Severity Reaction(s) Onset Inactive Treating Comm ents Source Name Type Date Date Clinician Codeine Propensi Active ty to 01-04 adverse 00:00: reaction 00 to drug codeine DA Active [facility] 2- Clear 00:00: [place] 00 [facility] codeine DA Active MO "SEEING [facility] THINGS" 12-25 Clear 00:00: [place] 00 [facility] BEE DRUG Active Swelling 2013-10 Univers STING / INGREDI 2-15 ity of VENOM 00:00: [place] Medical [facility] Bee Propensi Active Swelling 2014-1 Mom Univer s Sting / ty to [...] Cigarette Smoker Universi ty of tobacco use [place] [facility] History [facility] University o f Alcohol Frequency [facility] [place] edical Branch History [facility] o f Alcohol Std [place] Medical Drinks Branch History [facility] o f Alcohol Binge [place] Medic al Branch Alcohol intake 2023-02-20 2023-02-20 Ex-drinker University of 00:00:00 00:00:00 (finding) [facility] Exposure to 2023-02-09 2023-02-19 Yes [facility] SARS-CoV-2 00:00:00 09:23:00 [facility] (event) Branch Tobacco use and 2023-01-23 2023-01-23 Smokeless tobacco Un iversity of exposure 00:00:00 00:00:00 non-user [facility] Tobacco Comment 2023-01-23 2023-01-23 Vaping, beginning Un iversity of 00:00:00 00:00:00 ~2018 [facility] Alcohol Comment 2019-07-09 2019-07-09 "I tried alcohol Uni versity of 00:00:00 00:00:00 once" [facility] Sex Assigned At [birth year] Universit y of 00:00:00 00:00:00 [facility] Smoking Status Start Date Stop Date Source Heavy tobacco smoker 2023-01-23 00:00:00 Univers ity [facility] Light tobacco smoker 2020-03-01 00:00:00 Univers ity [facility] Never smoker [facility] Medications Ordered Filled Start Stop Current Ordering Indication Dosage Frequency Signature Comments Components Source Medication Medication Date Date Medication? Clinician (SIG) Name Name predniSONE 2022- No [id number] 40mg Take 2 Univers 20 mg 1-20 11-23 tablets by ity of tablet 00:00: 05:59 mouth in [place] 00 :00 the Medical morning Branch for 5 days. Dose 2021-1 No Unknown 2-16 00:00: 00 Dose 2021-1 No Unknown 2-16 00:00: 00 Dose 2021-1 No Unknown 2-16 00:00: 00 INHALE 2 2021- No PUFFS BY 2-16 MOUTH EVERY 00:00: 4 HOURS 00 Dose 2021-1 No Unknown 2-16 00:00: 00 Dose 2021-1 No Unknown 2-16 00:00: 00 Dose 2021-1 No Unknown 2-16 00:00: 00 Dose 2021-0 No Unknown 7-14 00:00: 00 Dose 2021-0 No Unknown 7-14 00:00: 00 Ativan 1 mg No 1mg tablet 6- 00:00: 00 Dose 2021-0 No Unknown 6-14 00:00: 00 Dose 2021-0 No Unknown 6-14 00:00: 00 Dose 2021-0 No Unknown 6-14 00:00: 00 hydrOXYzine 2021- No 25mg 25 mg, Uni vers (ATARAX) 04-03 Oral, ity of tablet 25 22:00: 21:02 ONCE, 1 [place] mg 00 :00 dose, On Medical 04/03/22 Branch at 1700, DRAKE iopamidol 2021- No [id number] 70mL 70 mL, Univers (ISOVUE 04-03 Intravenou ity o f 370-500 mL) 21:18: 21:19 s, ONCE, 1 [place] injection 00 :00 dose, On Medica l 70 mL [facility] 04/03/22 Branch at 1630, Routine hydrOXYzine Yes [id number] 25mg Take 1 Univers 25 mg 6-06 tablet by ity of tablet 00:00: mouth [place] 00 every 8 Medical (eight) Branch hours as needed for Anxiety. hydrOXYzine 2021-0 Yes [id number] 25mg Take 1 Univers 25 mg 6-06 tablet by ity of tablet 00:00: mouth [place] 00 every 8 Medical (eight) Branch hours as needed for Anxiety. hydrOXYzine 2021-0 Yes [id number] 25mg Take 1 Univers 25 mg 6-06 tablet by ity of tablet 00:00: mouth [place] 00 every 8 Medical (eight) Branch hours as needed for Anxiety. hydrOXYzine 2022-0 Yes [id number] 25mg Take 1 Univers 25 mg 6-06 tablet by ity of tablet 00:00: mouth [place] 00 every 8 Medical (eight) Branch hours as needed for Anxiety. hydrOXYzine 2022-0 Yes [id number] 25mg Take 1 Univers 25 mg 6-06 tablet by ity of tablet 00:00: mouth [place] 00 every 8 Medical (eight) Branch hours as needed for Anxiety. hydrOXYzine 2022-0 Yes [id number] 25mg Take 1 Univers 25 mg 6-06 tablet by ity of tablet 00:00: mouth [place] 00 every 8 Medical (eight) Branch hours as needed for Anxiety. hydrOXYzine 2022-0 Yes [id number] 25mg Take 1 Univers 25 mg 6-06 tablet by ity of tablet 00:00: mouth [place] 00 every 8 Medical (eight) Branch hours as needed for Anxiety. hydrOXYzine 2022-0 Yes [id number] 25mg Take 1 Univers 25 mg 6-06 tablet by ity of tablet 00:00: mouth [place] 00 every 8 Medical (eight) Branch hours as needed for Anxiety. hydrOXYzine 2022-0 Yes [id number] 25mg Take 1 Univers 25 mg 6-06 tablet by ity of tablet 00:00: mouth [place] 00 every 8 Medical (eight) Branch hours as needed for Anxiety. hydrOXYzine 2022-0 Yes [id number] 25mg Take 1 Univers 25 mg 6-06 tablet by ity of tablet 00:00: mouth [place] 00 every 8 Medical (eight) Branch hours as needed for Anxiety. hydrOXYzine 2022-0 Yes [id number] 25mg Take 1 Univers 25 mg 6-06 tablet by ity of tablet 00:00: mouth [place] 00 every 8 Medical (eight) Branch hours as needed for Anxiety. ibuprofen 2022-0 Yes [id number] 600mg Take 1 Univers 600 mg 5-09 tablet by ity of tablet 00:00: mouth [place] 00 every 6 Medical (six) Branch hours as needed for Pain (scale 4-6). ibuprofen 2022-0 Yes [id number] 600mg Take 1 Univers 600 mg 5-09 tablet by ity of tablet 00:00: mouth [place] 00 every 6 Medical (six) Branch hours as needed for Pain (scale 4-6). ibuprofen 2022-0 Yes [id number] 600mg Take 1 Univers 600 mg 5-09 tablet by ity of tablet 00:00: mouth [place] 00 every 6 Medical (six) Branch hours as needed for Pain (scale 4-6). ibuprofen 2022-0 Yes [id number] 600mg Take 1 Univers 600 mg 5-09 tablet by ity of tablet 00:00: mouth [place] 00 every 6 Medical (six) Branch hours as needed for Pain (scale 4-6). ibuprofen 2022-0 Yes [id number] 600mg Take 1 Univers 600 mg 5-09 tablet by ity of tablet 00:00: mouth [place] 00 every 6 Medical (six) Branch hours as needed for Pain (scale 4-6). ibuprofen 2022-0 Yes [id number] 600mg Take 1 Univers 600 mg 5-09 tablet by ity of tablet 00:00: mouth [place] 00 every 6 Medical (six) Branch hours as needed for Pain (scale 4-6). ibuprofen 2022-0 Yes [id number] 600mg Take 1 Univers 600 mg 5-09 tablet by ity of tablet 00:00: mouth [place] 00 every 6 Medical (six) Branch hours as needed for Pain (scale 4-6). ibuprofen 2022-0 Yes [id number] 600mg Take 1 Univers 600 mg 5-09 tablet by ity of tablet 00:00: mouth [place] 00 every 6 Medical (six) Branch hours as needed for Pain (scale 4-6). ibuprofen 2022-0 Yes [id number] 600mg Take 1 Univers 600 mg 5-09 tablet by ity of tablet 00:00: mouth [place] 00 every 6 Medical (six) Branch hours as needed for Pain (scale 4-6). ibuprofen 2022-0 Yes [id number] 600mg Take 1 Univers 600 mg 5-09 tablet by ity of tablet 00:00: mouth [place] 00 every 6 Medical (six) Branch hours as needed for Pain (scale 4-6). ibuprofen 2022-0 Yes [id number] 600mg Take 1 Univers 600 mg 5-09 tablet by ity of tablet 00:00: mouth [place] 00 every 6 Medical (six) Branch hours as needed for Pain (scale 4-6). ibuprofen 2022-0 Yes [id number] 600mg Take 1 Univers 600 mg 5-09 tablet by ity of tablet 00:00: mouth [place] 00 every 6 Medical (six) Branch hours as needed for Pain (scale 4-6). methocarbam 2021- No [id number] 750mg Take 1 Univers oL 750 mg [...] :00 dose, On Medi chen ing tablet [facility] Branch Branch 4 mg 11/10/21 at 1330, Routine ondansetron Yes [id number] 4mg Take 1 Univers (ZOFRAN 1-13 tablet by ity of ODT) 4 mg 00:00: mouth [place] disintegrat 00 every 8 Medic al ing tablet (eight) Branch hours as needed for Nausea and Vomiting (N/V). ondansetron 2021-0 Yes [id number] 4mg Take 1 Univers (ZOFRAN 1-13 tablet by ity of ODT) 4 mg 00:00: mouth [place] disintegrat 00 every 8 Medic al ing tablet (eight) Branch hours as needed for Nausea and Vomiting (N/V). ondansetron 2022-0 Yes [id number] 4mg Take 1 Univers (ZOFRAN 1-13 tablet by ity of ODT) 4 mg 00:00: mouth [place] disintegrat 00 every 8 Medic al ing tablet (eight) Branch hours as needed for Nausea and Vomiting (N/V). ondansetron 2022-0 Yes [id number] 4mg Take 1 Univers (ZOFRAN 1-13 tablet by ity of ODT) 4 mg 00:00: mouth [place] disintegrat 00 every 8 Medic al ing tablet (eight) Branch hours as needed for Nausea and Vomiting (N/V). ondansetron 2022-0 Yes [id number] 4mg Take 1 Univers (ZOFRAN 1-13 tablet by ity of ODT) 4 mg 00:00: mouth [place] disintegrat 00 every 8 Medic al ing tablet (eight) Branch hours as needed for Nausea and Vomiting (N/V). ondansetron 2022-0 Yes [id number] 4mg Take 1 Univers (ZOFRAN 1-13 tablet by ity of ODT) 4 mg 00:00: mouth [place] disintegrat 00 every 8 Medic al ing tablet (eight) Branch hours as needed for Nausea and Vomiting (N/V). ondansetron 2022-0 Yes [id number] 4mg Take 1 Univers (ZOFRAN 1-13 tablet by ity of ODT) 4 mg 00:00: mouth [place] disintegrat 00 every 8 Medic al ing tablet (eight) Branch hours as needed for Nausea and Vomiting (N/V). ondansetron 2022-0 Yes [id number] 4mg Take 1 Univers (ZOFRAN 1-13 tablet by ity of ODT) 4 mg 00:00: mouth [place] disintegrat 00 every 8 Medic al ing tablet (eight) Branch hours as needed for Nausea and Vomiting (N/V). ondansetron 2022-0 Yes [id number] 4mg Take 1 Univers (ZOFRAN 1-13 tablet by ity of ODT) 4 mg 00:00: mouth [place] disintegrat 00 every 8 Medic al ing tablet (eight) Branch hours as needed for Nausea and Vomiting (N/V). ondansetron 2022-0 Yes [id number] 4mg Take 1 Univers (ZOFRAN 1-13 tablet by ity of ODT) 4 mg 00:00: mouth [place] disintegrat 00 every 8 Medic al ing tablet (eight) Branch hours as needed for Nausea and Vomiting (N/V). ondansetron Yes [id number] 4mg Take 1 Univers (ZOFRAN 1-13 tablet by ity of ODT) 4 mg 00:00: mouth [place] disintegrat 00 every 8 Medic al ing tablet (eight) Branch hours as needed for Nausea and Vomiting (N/V). ondansetron Yes [id number] 4mg Take 1 Univers (ZOFRAN 1-13 tablet by ity of ODT) 4 mg 00:00: mouth [place] disintegrat 00 every 8 Medic al ing tablet (eight) Branch hours as needed for Nausea and Vomiting (N/V). ondansetron Yes [id number] 4mg Take 1 Univers (ZOFRAN 1-13 tablet by ity of ODT) 4 mg 00:00: mouth [place] disintegrat 00 every 8 Medic al ing tablet (eight) Branch hours as needed for Nausea and Vomiting (N/V). famotidine 2021- No [id number] 20mg Take 1 Univers 20 mg 1-13 02-04 tablet by ity of tablet 00:00: 05:59 mouth at [place] 00 :00 bedtime Medical for 21 Branch days. penicillin 2020- No [id number] 1.210 U nivers g 05-25 ity of benzathine 01:30: 00:49 [place] (BICILLIN 00 :00 Medical L-A) Branch injection 1.2 Million Units penicillin 2020- No [id number] 1.210 1.2 U nivers g 05-25 Million ity of benzathine 01:30: 00:49 [place], [place] (BICILLIN 00 :00 Intramuscu Medi chen L-A) lar, ONCE, Branch injection 1 dose, 1.2 Million Tue Units 05/24/21 at 2030, DRAKE
Re ason for Anti-Infec tive: Empiric Therapy for Suspected Infection< br>Empiric Therapy Site: Urine
D uration of therapy: 7 days ondansetron Yes [id number] 4mg Take 1 Univers 4 mg 7-26 tablet by ity of disintegrat 00:00: mouth [place] ing tablet 00 every 8 Medica l (eight) Branch hours as needed for Nausea and Vomiting (N/V). chlorhexidi 2020-0 Yes [id number] Apply to Univers ne 4 % 7-26 area(s) ity of external 00:00: once daily [place] as liquid 00 as needed Medical for Wound Branch care. mupirocin 2 2020-0 Yes [id number] Apply to Univers % ointment 7-26 area(s) 3 ity of 00:00: (three) [place] 00 times Medical daily. Branch ondansetron 2020-0 Yes [id number] 4mg Take 1 Univers 4 mg 7-26 tablet by ity of disintegrat 00:00: mouth [place] ing tablet 00 every 8 Medica l (eight) Branch hours as needed for Nausea and Vomiting (N/V). chlorhexidi 2020-0 Yes [id number] Apply to Univers ne 4 % 7-26 area(s) ity of external 00:00: once daily [place] as liquid 00 as needed Medical for Wound Branch care. mupirocin 2 2020-0 Yes [id number] Apply to Univers % ointment 7-26 area(s) 3 ity of 00:00: (three) [place] 00 times Medical daily. Branch ondansetron 2020-0 Yes [id number] 4mg Take 1 Univers 4 mg 7-26 tablet by ity of disintegrat 00:00: mouth [place] ing tablet 00 every 8 Medica l (eight) Branch hours as needed for Nausea and Vomiting (N/V). chlorhexidi 2020-0 Yes [id number] Apply to Univers ne 4 % 7-26 area(s) ity of external 00:00: once daily [place] as liquid 00 as needed Medical for Wound Branch care. mupirocin 2 2020-0 Yes [id number] Apply to Univers % ointment 7-26 area(s) 3 ity of 00:00: (three) [place] 00 times Medical daily. Branch ondansetron 2020-0 Yes [id number] 4mg Take 1 Univers 4 mg 7-26 tablet by ity of disintegrat 00:00: mouth [place] ing tablet 00 every 8 Medica l (eight) Branch hours as needed for Nausea and Vomiting (N/V). chlorhexidi 2021-0 Yes [id number] Apply to Univers ne 4 % 7-26 area(s) ity of external 00:00: once daily [place] as liquid 00 as needed Medical for Wound Branch care. mupirocin 2 2020-0 Yes [id number] Apply to Univers % ointment 7-26 area(s) 3 ity of 00:00: (three) [place] 00 times Medical daily. Branch ondansetron 2020-0 Yes [id number] 4mg Take 1 Univers 4 mg 7-26 tablet by ity of disintegrat 00:00: mouth [place] ing tablet 00 every 8 Medica l (eight) Branch hours as needed for Nausea and Vomiting (N/V). chlorhexidi 2020-0 Yes [id number] Apply to Univers ne 4 % 7-26 area(s) ity of external 00:00: once daily [place] as liquid 00 as needed Medical for Wound Branch care. mupirocin 2 2020-0 Yes [id number] Apply to Univers % ointment 7-26 area(s) 3 ity of 00:00: (three) [place] 00 times Medical daily. Branch ondansetron 2020-0 Yes [id number] 4mg Take 1 Univers 4 mg 7-26 tablet by ity of disintegrat 00:00: mouth [place] ing tablet 00 every 8 Medica l (eight) Branch hours as needed for Nausea and Vomiting (N/V). chlorhexidi 2020-0 Yes [id number] Apply to Univers ne 4 % 7-26 area(s) ity of external 00:00: once daily [place] as liquid 00 as needed Medical for Wound Branch care. mupirocin 2 2020-0 Yes [id number] Apply to Univers % ointment 7-26 area(s) 3 ity of 00:00: (three) [place] 00 times Medical daily. Branch ondansetron 2020-0 Yes [id number] 4mg Take 1 Univers 4 mg 7-26 tablet by ity of disintegrat 00:00: mouth [place] ing tablet 00 every 8 Medica l (eight) Branch hours as needed for Nausea and Vomiting (N/V). chlorhexidi 1-0 Yes [id number] Apply to Univers ne 4 % 7-26 area(s) ity of external 00:00: once daily [place] as liquid 00 as needed Medical for Wound Branch care. mupirocin 2 2020-0 Yes [id number] Apply to Univers % ointment 7-26 area(s) 3 ity of 00:00: (three) [place] 00 times Medical daily. Branch ondansetron 2020-0 Yes [id number] 4mg Take 1 Univers 4 mg 7-26 tablet by ity of disintegrat 00:00: mouth [place] ing tablet 00 every 8 Medica l (eight) Branch hours as needed for Nausea and Vomiting (N/V). chlorhexidi 2020-0 Yes [id number] Apply to Univers ne 4 % 7-26 area(s) ity of external 00:00: once daily [place] as liquid 00 as needed Medical for Wound Branch care. mupirocin 2 2020-0 Yes [id number] Apply to Univers % ointment 7-26 area(s) 3 ity of 00:00: (three) [place] 00 times Medical daily. Branch ondansetron 2020-0 Yes [id number] 4mg Take 1 Univers 4 mg 7-26 tablet by ity of disintegrat 00:00: mouth [place] ing tablet 00 every 8 Medica l (eight) Branch hours as needed for Nausea and Vomiting (N/V). chlorhexidi 2020-0 Yes [id number] Apply to Univers ne 4 % 7-26 area(s) ity of external 00:00: once daily [place] as liquid 00 as needed Medical for Wound Branch care. mupirocin 2 2020-0 Yes [id number] Apply to Univers % ointment 7-26 area(s) 3 ity of 00:00: (three) [place] 00 times Medical daily. Branch ondansetron 2020-0 Yes [id number] 4mg Take 1 Univers 4 mg 7-26 tablet by ity of disintegrat 00:00: mouth [place] ing tablet 00 every 8 Medica l (eight) Branch hours as needed for Nausea and Vomiting (N/V). chlorhexidi 1-0 Yes [id number] Apply to Univers ne 4 % 7-26 area(s) ity of external 00:00: once daily [place] as liquid 00 as needed Medical for Wound Branch care. mupirocin 2 2020-0 Yes [id number] Apply to Univers % ointment 7-26 area(s) 3 ity of 00:00: (three) [place] 00 times Medical daily. Branch ondansetron 2020-0 Yes [id number] 4mg Take 1 Univers 4 mg 7-26 tablet by ity of disintegrat 00:00: mouth [place] ing tablet 00 every 8 Medica l (eight) Branch hours as needed for Nausea and Vomiting (N/V). chlorhexidi 1-0 Yes [id number] Apply to Univers ne 4 % 7-26 area(s) ity of external 00:00: once daily [place] as liquid 00 as needed Medical for Wound Branch care. mupirocin 2 2020-0 Yes [id number] Apply to Univers % ointment 7-26 area(s) 3 ity of 00:00: (three) [place] 00 times Medical daily. Branch ondansetron 2020-0 Yes [id number] 4mg Take 1 Univers 4 mg 7-26 tablet by ity of disintegrat 00:00: mouth [place] ing tablet 00 every 8 Medica l (eight) Branch hours as needed for Nausea and Vomiting (N/V). chlorhexidi 2020-0 Yes [id number] Apply to Univers ne 4 % 7-26 area(s) ity of external 00:00: once daily [place] as liquid 00 as needed Medical for Wound Branch care. mupirocin 2 2020-0 Yes [id number] Apply to Univers % ointment 7-26 area(s) 3 ity of 00:00: (three) [place] 00 times Medical daily. Branch ondansetron 2020-0 Yes [id number] 4mg Take 1 Univers 4 mg 7-26 tablet by ity of disintegrat 00:00: mouth [place] ing tablet 00 every 8 Medica l (eight) Branch hours as needed for Nausea and Vomiting (N/V). chlorhexidi 2020-0 Yes [id number] Apply to Univers ne 4 % 7-26 area(s) ity of external 00:00: once daily [place] as liquid 00 as needed Medical for Wound Branch care. mupirocin 2 2020-0 Yes [id number] Apply to [facility] % ointment 7-26 area(s) 3 ity of 00:00: (three) [place] 00 times Medical daily. Branch ondansetron 2020-0 Yes [id number] 4mg Take 1 [facility] 4 mg 7-26 tablet by ity of disintegrat 00:00: mouth [place] ing tablet 00 every 8 Medica l (eight) Branch hours as needed for Nausea and Vomiting (N/V). chlorhexidi 2020-0 Yes [id number] Apply to [facility] ne 4 % 7-26 area(s) ity of external 00:00: once daily [place] as liquid 00 as needed Medical for Wound Branch care. mupirocin 2 2020-0 Yes [id number] Apply to [facility] % ointment 7-26 area(s) 3 ity of 00:00: (three) [place] 00 times Medical daily. Branch ondansetron 2020-0 Yes [id number] 4mg Take 1 [facility] 4 mg 7-26 tablet by ity of disintegrat 00:00: mouth [place] ing tablet 00 every 8 Medica l (eight) Branch hours as needed for Nausea and Vomiting (N/V). chlorhexidi 2020-0 Yes [id number] Apply to [facility] ne 4 % 7-26 area(s) ity of external 00:00: once daily [place] as liquid 00 as needed Medical for Wound Branch care. mupirocin 2 2020-0 Yes [id number] Apply to [facility] % ointment 7-26 area(s) 3 ity of 00:00: (three) [place] 00 times Medical daily. Branch ondansetron 2020-0 Yes [id number] 4mg Take 1 [facility] 4 mg 7-26 tablet by ity of disintegrat 00:00: mouth [place] ing tablet 00 every 8 Medica l (eight) Branch hours as needed for Nausea and Vomiting (N/V). chlorhexidi 2020-0 Yes [id number] Apply to [facility] ne 4 % 7-26 area(s) ity of external 00:00: once daily [place] as liquid 00 as needed Medical for Wound Branch care. mupirocin 2 2020-0 Yes [id number] Apply to [facility] % ointment 7-26 area(s) 3 ity of 00:00: (three) [place] 00 times Medical daily. Branch ondansetron 2020-0 Yes [id number] 4mg Take 1 [facility] 4 mg 7-26 tablet by ity of disintegrat 00:00: mouth [place] ing tablet 00 every 8 Medica l (eight) Branch hours as needed for Nausea and Vomiting (N/V). chlorhexidi 2020-0 Yes [id number] Apply to [facility] ne 4 % 7-26 area(s) ity of external 00:00: once daily [place] as liquid 00 as needed Medical for Wound Branch care. mupirocin 2 2020-0 Yes [id number] Apply to [facility] % ointment 7-26 area(s) 3 ity of 00:00: (three) [place] 00 times Medical daily. Branch ondansetron 2020-0 Yes [id number] 4mg Take 1 [facility] 4 mg 7-26 tablet by ity of disintegrat 00:00: mouth [place] ing tablet 00 every 8 Medica l (eight) Branch hours as needed for Nausea and Vomiting (N/V). chlorhexidi 2020-0 Yes [id number] Apply to [facility] ne 4 % 7-26 area(s) ity of external 00:00: once daily [place] as liquid 00 as needed Medical for Wound Branch care. mupirocin 2 2020-0 Yes [id number] Apply to [facility] % ointment 7-26 area(s) 3 ity of 00:00: (three) [place] 00 times Medical daily. Branch ondansetron 2020- Yes [id number] 4mg Take 1 [facility] 4 mg 7-26 tablet by ity of disintegrat 00:00: mouth [place] ing tablet 00 every 8 Medica l (eight) Branch hours as needed for Nausea and Vomiting (N/V). chlorhexidi 2020-0 Yes [id number] Apply to [facility] ne 4 % 7-26 area(s) ity of external 00:00: once daily [place] as liquid 00 as needed Medical for Wound Branch care. mupirocin 2 0 Yes [id number] Apply to [facility] % ointment 7-26 area(s) 3 ity of 00:00: (three) [place] 00 times Medical daily. Branch ondansetron 2020- Yes [id number] 4mg Take 1 [facility] 4 mg 7-26 tablet by ity of disintegrat 00:00: mouth [place] ing tablet 00 every 8 Medica l (eight) Branch hours as needed for Nausea and Vomiting (N/V). chlorhexidi 2020-0 Yes [id number] Apply to [facility] ne 4 % 7-26 area(s) ity of external 00:00: once daily [place] as liquid 00 as needed Medical for Wound Branch care. mupirocin 2 2020-0 Yes [id number] Apply to [facility] % ointment 7-26 area(s) 3 ity of 00:00: (three) [place] 00 times Medical daily. Branch ondansetron Yes [id number] 4mg Take 1 [facility] 4 mg 7-26 tablet by ity of disintegrat 00:00: mouth [place] ing tablet 00 every 8 Medica l (eight) Branch hours as needed for Nausea and Vomiting (N/V). chlorhexidi Yes [id number] Apply to [facility] ne 4 % - area(s) ity of external 00:00: once daily [place] as liquid 00 as needed Medical for Wound Branch care. mupirocin 2 Yes [id number] Apply to [facility] % ointment 7-26 area(s) 3 ity of 00:00: (three) [place] 00 times Medical daily. Branch Mometasone- Yes [id number] 2{puff} Inhale 2 [facility] Formoterol 5-18 Puffs 2 ity of (DULERA) 00:00: (two) [place] 200-5 00 times Medical mcg/actuati daily as Bran ch on inhaler needed (shortness of breath). azelastine Yes [id number] 1{spray Use 1 [facility] 137 mcg 5-18 } Powderly in ity of (0.1 %) 00:00: each [place] nasal spray 00 nostril 2 Med ical (two) Branch times daily. Use in each nostril as directed EPINEPHrine Yes [id number] .3mg 0.3 mL by [facility] (EPIPEN) 5-18 Intramuscu ity o f 0.3 mg/0.3 00:00: lar route [place] mL 00 as needed Medical injection (anaphylax Bran ch is). Mometasone- Yes [id number] 2{puff} Inhale 2 [facility] Formoterol 5-18 Puffs 2 ity of (DULERA) 00:00: (two) [place] 200-5 00 times Medical mcg/actuati daily as Bran ch on inhaler needed (shortness of breath). azelastine Yes [id number] 1{spray Use 1 [facility] 137 mcg 5-18 } Powderly in ity of (0.1 %) 00:00: each [place] nasal spray 00 nostril 2 Med ical (two) Branch times daily. Use in each nostril as directed EPINEPHrine Yes [id number] .3mg 0.3 mL by [facility] (EPIPEN) 5-18 Intramuscu ity o f 0.3 mg/0.3 00:00: lar route [place] mL 00 as needed Medical injection (anaphylax Bran ch is). Mometasone- Yes [id number] 2{puff} Inhale 2 [facility] Formoterol 5-18 Puffs 2 ity of (DULERA) 00:00: (two) [place] 200-5 00 times Medical mcg/actuati daily as Bran ch on inhaler needed (shortness of breath). azelastine Yes [id number] 1{spray Use 1 [facility] 137 mcg 5-18 } Powderly in ity of (0.1 %) 00:00: each [place] nasal spray 00 nostril 2 Med ical (two) Branch times daily. Use in each nostril as directed EPINEPHrine 2020- Yes [id number] .3mg 0.3 mL by [facility] (EPIPEN) 5-18 Intramuscu ity o f 0.3 mg/0.3 00:00: lar route [place] mL 00 as needed Medical injection (anaphylax Bran ch is). Mometasone- Yes [id number] 2{puff} Inhale 2 [facility] Formoterol 5-18 Puffs 2 ity of (DULERA) 00:00: (two) [place] 200-5 00 times Medical mcg/actuati daily as Bran ch on inhaler needed (shortness of breath). azelastine Yes [id number] 1{spray Use 1 [facility] 137 mcg 5-18 } Powderly in ity of (0.1 %) 00:00: each [place] nasal spray 00 nostril 2 Med ical (two) Branch times daily. Use in each nostril as directed EPINEPHrine 2020- Yes [id number] .3mg 0.3 mL by [facility] (EPIPEN) 5-18 Intramuscu ity o f 0.3 mg/0.3 00:00: lar route [place] mL 00 as needed Medical injection (anaphylax Bran ch is). Mometasone- Yes [id number] 2{puff} Inhale 2 [facility] Formoterol 5-18 Puffs 2 ity of (DULERA) 00:00: (two) [place] 200-5 00 times Medical mcg/actuati daily as Bran ch on inhaler needed (shortness of breath). azelastine Yes [id number] 1{spray Use 1 [facility] 137 mcg 5-18 } Powderly in ity of (0.1 %) 00:00: each [place] nasal spray 00 nostril 2 Med ical (two) Branch times daily. Use in each nostril as directed EPINEPHrine Yes [id number] .3mg 0.3 mL by [facility] (EPIPEN) 5-18 Intramuscu ity o f 0.3 mg/0.3 00:00: lar route [place] mL 00 as needed Medical injection (anaphylax Bran ch is). Mometasone- Yes [id number] 2{puff} Inhale 2 [facility] Formoterol 5-18 Puffs 2 ity of (DULERA) 00:00: (two) [place] 200-5 00 times Medical mcg/actuati daily as Bran ch on inhaler needed (shortness of breath). azelastine Yes [id number] 1{spray Use 1 [facility] 137 mcg 5-18 } Powderly in ity of (0.1 %) 00:00: each [place] nasal spray 00 nostril 2 Med ical (two) Branch times daily. Use in each nostril as directed EPINEPHrine Yes [id number] .3mg 0.3 mL by [facility] (EPIPEN) 5-18 Intramuscu ity o f 0.3 mg/0.3 00:00: lar route [place] mL 00 as needed Medical injection (anaphylax Bran ch is). Mometasone- Yes [id number] 2{puff} Inhale 2 [facility] Formoterol 5-18 Puffs 2 ity of (DULERA) 00:00: (two) [place] 200-5 00 times Medical mcg/actuati daily as Bran ch on inhaler needed (shortness of breath). azelastine Yes [id number] 1{spray Use 1 [facility] 137 mcg 5-18 } Powderly in ity of (0.1 %) 00:00: each [place] nasal spray 00 nostril 2 Med ical (two) Branch times daily. Use in each nostril as directed EPINEPHrine Yes [id number] .3mg 0.3 mL by [facility] (EPIPEN) 5-18 Intramuscu ity o f 0.3 mg/0.3 00:00: lar route [place] mL 00 as needed Medical injection (anaphylax Bran ch is). Mometasone- Yes [id number] 2{puff} Inhale 2 [facility] Formoterol 5-18 Puffs 2 ity of (DULERA) 00:00: (two) [place] 200-5 00 times Medical mcg/actuati daily as Bran ch on inhaler needed (shortness of breath). azelastine Yes [id number] 1{spray Use 1 [facility] 137 mcg 5-18 } Powderly in ity of (0.1 %) 00:00: each [place] nasal spray 00 nostril 2 Med ical (two) Branch times daily. Use in each nostril as directed EPINEPHrine Yes [id number] .3mg 0.3 mL by [facility] (EPIPEN) 5-18 Intramuscu ity o f 0.3 mg/0.3 00:00: lar route [place] mL 00 as needed Medical injection (anaphylax Bran ch is). Mometasone- Yes [id number] 2{puff} Inhale 2 [facility] Formoterol 5-18 Puffs 2 ity of (DULERA) 00:00: (two) [place] 200-5 00 times Medical mcg/actuati daily as Bran ch on inhaler needed (shortness of breath). azelastine Yes [id number] 1{spray Use 1 [facility] 137 mcg 5-18 } Powderly in ity of (0.1 %) 00:00: each [place] nasal spray 00 nostril 2 Med ical (two) Branch times daily. Use in each nostril as directed EPINEPHrine Yes [id number] .3mg 0.3 mL by [facility] (EPIPEN) 5-18 Intramuscu ity o f 0.3 mg/0.3 00:00: lar route [place] mL 00 as needed Medical injection (anaphylax Bran ch is). Mometasone- Yes [id number] 2{puff} Inhale 2 [facility] Formoterol 5-18 Puffs 2 ity of (DULERA) 00:00: (two) [place] 200-5 00 times Medical mcg/actuati daily as Bran ch on inhaler needed (shortness of breath). azelastine Yes [id number] 1{spray Use 1 [facility] 137 mcg 5-18 } Powderly in ity of (0.1 %) 00:00: each [place] nasal spray 00 nostril 2 Med ical (two) Branch times daily. Use in each nostril as directed EPINEPHrine 2020- Yes [id number] .3mg 0.3 mL by [facility] (EPIPEN) 5-18 Intramuscu ity o f 0.3 mg/0.3 00:00: lar route [place] mL 00 as needed Medical injection (anaphylax Bran ch is). Mometasone- Yes [id number] 2{puff} Inhale 2 [facility] Formoterol 5-18 Puffs 2 ity of (DULERA) 00:00: (two) [place] 200-5 00 times Medical mcg/actuati daily as Bran ch on inhaler needed (shortness of breath). azelastine Yes [id number] 1{spray Use 1 [facility] 137 mcg 5-18 } Powderly in ity of (0.1 %) 00:00: each [place] nasal spray 00 nostril 2 Med ical (two) Branch times daily. Use in each nostril as directed EPINEPHrine 2020- Yes [id number] .3mg 0.3 mL by [facility] (EPIPEN) 5-18 Intramuscu ity o f 0.3 mg/0.3 00:00: lar route [place] mL 00 as needed Medical injection (anaphylax Bran ch is). Mometasone- Yes [id number] 2{puff} Inhale 2 [facility] Formoterol 5-18 Puffs 2 ity of (DULERA) 00:00: (two) [place] 200-5 00 times Medical mcg/actuati daily as Bran ch on inhaler needed (shortness of breath). azelastine Yes [id number] 1{spray Use 1 [facility] 137 mcg 5-18 } Powderly in ity of (0.1 %) 00:00: each [place] nasal spray 00 nostril 2 Med ical (two) Branch times daily. Use in each nostril as directed EPINEPHrine 2020-0 Yes [id number] .3mg 0.3 mL by [facility] (EPIPEN) 5-18 Intramuscu ity o f 0.3 mg/0.3 00:00: lar route [place] mL 00 as needed Medical injection (anaphylax Bran ch is). Mometasone- Yes [id number] 2{puff} Inhale 2 [facility] Formoterol 5-18 Puffs 2 ity of (DULERA) 00:00: (two) [place] 200-5 00 times Medical mcg/actuati daily as Bran ch on inhaler needed (shortness of breath). azelastine Yes [id number] 1{spray Use 1 [facility] 137 mcg 5-18 } Powderly in ity of (0.1 %) 00:00: each [place] nasal spray 00 nostril 2 Med ical (two) Branch times daily. Use in each nostril as directed EPINEPHrine 2020-0 Yes [id number] .3mg 0.3 mL by [facility] (EPIPEN) 5-18 Intramuscu ity o f 0.3 mg/0.3 00:00: lar route [place] mL 00 as needed Medical injection (anaphylax Bran ch is). Mometasone- Yes [id number] 2{puff} Inhale 2 [facility] Formoterol 5-18 Puffs 2 ity of (DULERA) 00:00: (two) [place] 200-5 00 times Medical mcg/actuati daily as Bran ch on inhaler needed (shortness of breath). azelastine 2020-0 Yes [id number] 1{spray Use 1 [facility] 137 mcg 5-18 } Powderly in ity of (0.1 %) 00:00: each [place] nasal spray 00 nostril 2 Med ical (two) Branch times daily. Use in each nostril as directed EPINEPHrine 2020-0 Yes [id number] .3mg 0.3 mL by [facility] (EPIPEN) 5-18 Intramuscu ity o f 0.3 mg/0.3 00:00: lar route [place] mL 00 as needed Medical injection (anaphylax Bran ch is). Mometasone- Yes [id number] 2{puff} Inhale 2 [facility] Formoterol 5-18 Puffs 2 ity of (DULERA) 00:00: (two) [place] 200-5 00 times Medical mcg/actuati daily as Bran ch on inhaler needed (shortness of breath). azelastine Yes [id number] 1{spray Use 1 [facility] 137 mcg 5-18 } Powderly in ity of (0.1 %) 00:00: each [place] nasal spray 00 nostril 2 Med ical (two) Branch times daily. Use in each nostril as directed EPINEPHrine Yes [id number] .3mg 0.3 mL by [facility] (EPIPEN) 5-18 Intramuscu ity o f 0.3 mg/0.3 00:00: lar route [place] mL 00 as needed Medical injection (anaphylax Bran ch is). Mometasone- Yes [id number] 2{puff} Inhale 2 [facility] Formoterol 5-18 Puffs 2 ity of (DULERA) 00:00: (two) [place] 200-5 00 times Medical mcg/actuati daily as Bran ch on inhaler needed (shortness of breath). azelastine Yes [id number] 1{spray Use 1 [facility] 137 mcg 5-18 } Powderly in ity of (0.1 %) 00:00: each [place] nasal spray 00 nostril 2 Med ical (two) Branch times daily. Use in each nostril as directed EPINEPHrine 2020-0 Yes [id number] .3mg 0.3 mL by [facility] (EPIPEN) 5-18 Intramuscu ity o f 0.3 mg/0.3 00:00: lar route [place] mL 00 as needed Medical injection (anaphylax Bran ch is). Mometasone- Yes [id number] 2{puff} Inhale 2 [facility] Formoterol 5-18 Puffs 2 ity of (DULERA) 00:00: (two) [place] 200-5 00 times Medical mcg/actuati daily as Bran ch on inhaler needed (shortness of breath). azelastine Yes [id number] 1{spray Use 1 [facility] 137 mcg 5-18 } Powderly in ity of (0.1 %) 00:00: each [place] nasal spray 00 nostril 2 Med ical (two) Branch times daily. Use in each nostril as directed EPINEPHrine Yes [id number] .3mg 0.3 mL by [facility] (EPIPEN) 5-18 Intramuscu ity o f 0.3 mg/0.3 00:00: lar route [place] mL 00 as needed Medical injection (anaphylax Bran ch is). Mometasone- Yes [id number] 2{puff} Inhale 2 [facility] Formoterol 5-18 Puffs 2 ity of (DULERA) 00:00: (two) [place] 200-5 00 times Medical mcg/actuati daily as Bran ch on inhaler needed (shortness of breath). azelastine Yes [id number] 1{spray Use 1 [facility] 137 mcg 5-18 } Powderly in ity of (0.1 %) 00:00: each [place] nasal spray 00 nostril 2 Med ical (two) Branch times daily. Use in each nostril as directed EPINEPHrine Yes [id number] .3mg 0.3 mL by [facility] (EPIPEN) 5-18 Intramuscu ity o f 0.3 mg/0.3 00:00: lar route [place] mL 00 as needed Medical injection (anaphylax Bran ch is). Mometasone- Yes [id number] 2{puff} Inhale 2 [facility] Formoterol 5-18 Puffs 2 ity of (DULERA) 00:00: (two) [place] 200-5 00 times Medical mcg/actuati daily as Bran ch on inhaler needed (shortness of breath). azelastine Yes [id number] 1{spray Use 1 [facility] 137 mcg 5-18 } Powderly in ity of (0.1 %) 00:00: each [place] nasal spray 00 nostril 2 Med ical (two) Branch times daily. Use in each nostril as directed EPINEPHrine Yes [id number] .3mg 0.3 mL by [facility] (EPIPEN) 5-18 Intramuscu ity o f 0.3 mg/0.3 00:00: lar route [place] mL 00 as needed Medical injection (anaphylax Bran ch is). Mometasone- Yes [id number] 2{puff} Inhale 2 [facility] Formoterol 5-18 Puffs 2 ity of (DULERA) 00:00: (two) [place] 200-5 00 times Medical mcg/actuati daily as Bran ch on inhaler needed (shortness of breath). azelastine Yes [id number] 1{spray Use 1 [facility] 137 mcg 5-18 } Powderly in ity of (0.1 %) 00:00: each [place] nasal spray 00 nostril 2 Med ical (two) Branch times daily. Use in each nostril as directed EPINEPHrine Yes [id number] .3mg 0.3 mL by [facility] (EPIPEN) 5-18 Intramuscu ity o f 0.3 mg/0.3 00:00: lar route [place] mL 00 as needed Medical injection (anaphylax Bran ch is). Mometasone- Yes [id number] 2{puff} Inhale 2 [facility] Formoterol 5-18 Puffs 2 ity of (DULERA) 00:00: (two) [place] 200-5 00 times Medical mcg/actuati daily as Bran ch on inhaler needed (shortness of breath). azelastine Yes [id number] 1{spray Use 1 [facility] 137 mcg 5-18 } Powderly in ity of (0.1 %) 00:00: each [place] nasal spray 00 nostril 2 Med ical (two) Branch times daily. Use in each nostril as directed EPINEPHrine 2020- Yes [id number] .3mg 0.3 mL by [facility] (EPIPEN) 5-18 Intramuscu ity o f 0.3 mg/0.3 00:00: lar route [place] mL 00 as needed Medical injection (anaphylax Bran ch is). Mometasone- Yes [id number] 2{puff} Inhale 2 [facility] Formoterol 5-18 Puffs 2 ity of (DULERA) 00:00: (two) [place] 200-5 00 times Medical mcg/actuati daily as Bran ch on inhaler needed (shortness of breath). azelastine Yes [id number] 1{spray Use 1 [facility] 137 mcg 5-18 } Powderly in ity of (0.1 %) 00:00: each [place] nasal spray 00 nostril 2 Med ical (two) Branch times daily. Use in each nostril as directed EPINEPHrine Yes [id number] .3mg 0.3 mL by [facility] (EPIPEN) 5-18 Intramuscu ity o f 0.3 mg/0.3 00:00: lar route [place] mL 00 as needed Medical injection (anaphylax Bran ch is). Mometasone- Yes [id number] 2{puff} Inhale 2 [facility] Formoterol 5-18 Puffs 2 ity of (DULERA) 00:00: (two) [place] 200-5 00 times Medical mcg/actuati daily as Bran ch on inhaler needed (shortness of breath). azelastine Yes [id number] 1{spray Use 1 [facility] 137 mcg 5-18 } Powderly in ity of (0.1 %) 00:00: each [place] nasal spray 00 nostril 2 Med ical (two) Branch times daily. Use in each nostril as directed EPINEPHrine Yes [id number] .3mg 0.3 mL by [facility] (EPIPEN) 5-18 Intramuscu ity o f 0.3 mg/0.3 00:00: lar route [place] mL 00 as needed Medical injection (anaphylax Bran ch is). Mometasone- Yes [id number] 2{puff} Inhale 2 [facility] Formoterol 5-18 Puffs 2 ity of (DULERA) 00:00: (two) [place] 200-5 00 times Medical mcg/actuati daily as Bran ch on inhaler needed (shortness of breath). azelastine Yes [id number] 1{spray Use 1 [facility] 137 mcg 5-18 } Powderly in ity of (0.1 %) 00:00: each [place] nasal spray 00 nostril 2 Med ical (two) Branch times daily. Use in each nostril as directed EPINEPHrine 2020- Yes [id number] .3mg 0.3 mL by [facility] (EPIPEN) 5-18 Intramuscu ity o f 0.3 mg/0.3 00:00: lar route [place] mL 00 as needed Medical injection (anaphylax Bran ch is). Mometasone- Yes [id number] 2{puff} Inhale 2 [facility] Formoterol 5-18 Puffs 2 ity of (DULERA) 00:00: (two) [place] 200-5 00 times Medical mcg/actuati daily as Bran ch on inhaler needed (shortness of breath). azelastine Yes [id number] 1{spray Use 1 [facility] 137 mcg 5-18 } Powderly in ity of (0.1 %) 00:00: each [place] nasal spray 00 nostril 2 Med ical (two) Branch times daily. Use in each nostril as directed EPINEPHrine Yes [id number] .3mg 0.3 mL by [facility] (EPIPEN) 5-18 Intramuscu ity o f 0.3 mg/0.3 00:00: lar route [place] mL 00 as needed Medical injection (anaphylax Bran ch is). Mometasone- Yes [id number] 2{puff} Inhale 2 [facility] Formoterol 5-18 Puffs 2 ity of (DULERA) 00:00: (two) [place] 200-5 00 times Medical mcg/actuati daily as Bran ch on inhaler needed (shortness of breath). azelastine Yes [id number] 1{spray Use 1 [facility] 137 mcg 5-18 } Powderly in ity of (0.1 %) 00:00: each [place] nasal spray 00 nostril 2 Med ical (two) Branch times daily. Use in each nostril as directed EPINEPHrine 2020- Yes [id number] .3mg 0.3 mL by [facility] (EPIPEN) 5-18 Intramuscu ity o f 0.3 mg/0.3 00:00: lar route [place] mL 00 as needed Medical injection (anaphylax Bran ch is). fluticasone Yes [id number] 2{puff} Inhale 2 [facility] propionate 4-22 6 Puffs ity of 220 00:00: every 12 [place] mcg/actuati 00 (twelve) Medi chen on inhaler hours. Branch fluticasone 2020-0 Yes [id number] 2{puff} Inhale 2 [facility] propionate 4-22 6 Puffs ity of 220 00:00: every 12 [place] mcg/actuati 00 (twelve) Medi chen on inhaler hours. Branch fluticasone 2020-0 Yes [id number] 2{puff} Inhale 2 [facility] propionate 4-22 6 Puffs ity of 220 00:00: every 12 [place] mcg/actuati 00 (twelve) Medi chen on inhaler hours. Branch fluticasone 2020-0 Yes [id number] 2{puff} Inhale 2 [facility] propionate 4-22 6 Puffs ity of 220 00:00: every 12 [place] mcg/actuati 00 (twelve) Medi chen on inhaler hours. Branch fluticasone 2020-0 Yes [id number] 2{puff} Inhale 2 [facility] propionate 4-22 6 Puffs ity of 220 00:00: every 12 [place] mcg/actuati 00 (twelve) Medi chen on inhaler hours. Branch fluticasone 2020-0 Yes [id number] 2{puff} Inhale 2 [facility] propionate 4-22 6 Puffs ity of 220 00:00: every 12 [place] mcg/actuati 00 (twelve) Medi chen on inhaler hours. Branch fluticasone 2020-0 Yes [id number] 2{puff} Inhale 2 [facility] propionate 4-22 6 Puffs ity of 220 00:00: every 12 [place] mcg/actuati 00 (twelve) Medi chen on inhaler hours. Branch fluticasone 2020-0 Yes [id number] 2{puff} Inhale 2 [facility] propionate 4-22 6 Puffs ity of 220 00:00: every 12 [place] mcg/actuati 00 (twelve) Medi chen on inhaler hours. Branch fluticasone 1-0 Yes [id number] 2{puff} Inhale 2 [facility] propionate 4-22 6 Puffs ity of 220 00:00: every 12 [place] mcg/actuati 00 (twelve) Medi chen on inhaler hours. Branch fluticasone 1-0 Yes [id number] 2{puff} Inhale 2 [facility] propionate 4-22 6 Puffs ity of 220 00:00: every 12 [place] mcg/actuati 00 (twelve) Medi chen on inhaler hours. Branch fluticasone 2020-0 Yes [id number] 2{puff} Inhale 2 [facility] propionate 4-22 6 Puffs ity of 220 00:00: every 12 [place] mcg/actuati 00 (twelve) Medi chen on inhaler hours. Branch fluticasone 2020-0 Yes [id number] 2{puff} Inhale 2 [facility] propionate 4-22 6 Puffs ity of 220 00:00: every 12 [place] mcg/actuati 00 (twelve) Medi chen on inhaler hours. Branch fluticasone 2020-0 Yes [id number] 2{puff} Inhale 2 [facility] propionate 4-22 6 Puffs ity of 220 00:00: every 12 [place] mcg/actuati 00 (twelve) Medi chen on inhaler hours. Branch fluticasone 2020-0 Yes [id number] 2{puff} Inhale 2 [facility] propionate 4-22 6 Puffs ity of 220 00:00: every 12 [place] mcg/actuati 00 (twelve) Medi chen on inhaler hours. Branch fluticasone 2020-0 Yes [id number] 2{puff} Inhale 2 [facility] propionate 4-22 6 Puffs ity of 220 00:00: every 12 [place] mcg/actuati 00 (twelve) Medi chen on inhaler hours. Branch fluticasone 2020-0 Yes [id number] 2{puff} Inhale 2 [facility] propionate 4-22 6 Puffs ity of 220 00:00: every 12 [place] mcg/actuati 00 (twelve) Medi chen on inhaler hours. Branch fluticasone 2020-0 Yes [id number] 2{puff} Inhale 2 [facility] propionate 4-22 6 Puffs ity of 220 00:00: every 12 [place] mcg/actuati 00 (twelve) Medi chen on inhaler hours. Branch fluticasone 2020-0 Yes [id number] 2{puff} Inhale 2 [facility] propionate 4-22 6 Puffs ity of 220 00:00: every 12 [place] mcg/actuati 00 (twelve) Medi chen on inhaler hours. Branch fluticasone 2020-0 Yes [id number] 2{puff} Inhale 2 [facility] propionate 4-22 6 Puffs ity of 220 00:00: every 12 [place] mcg/actuati 00 (twelve) Medi chen on inhaler hours. Branch fluticasone 2020-0 Yes [id number] 2{puff} Inhale 2 [facility] propionate 4-22 6 Puffs ity of 220 00:00: every 12 [place] mcg/actuati 00 (twelve) Medi chen on inhaler hours. Branch fluticasone 2020-0 Yes [id number] 2{puff} Inhale 2 [facility] propionate 4-22 6 Puffs ity of 220 00:00: every 12 [place] mcg/actuati 00 (twelve) Medi chen on inhaler hours. Branch fluticasone 2020-0 Yes [id number] 2{puff} Inhale 2 [facility] propionate 4-22 6 Puffs ity of 220 00:00: every 12 [place] mcg/actuati 00 (twelve) Medi chen on inhaler hours. Branch fluticasone 2020-0 Yes [id number] 2{puff} Inhale 2 [facility] propionate 4-22 6 Puffs ity of 220 00:00: every 12 [place] mcg/actuati 00 (twelve) Medi chen on inhaler hours. Branch fluticasone 2020-0 Yes [id number] 2{puff} Inhale 2 [facility] propionate 4-22 6 Puffs ity of 220 00:00: every 12 [place] mcg/actuati 00 (twelve) Medi chen on inhaler hours. Branch fluticasone 2020-0 Yes [id number] 2{puff} Inhale 2 [facility] propionate 4-22 6 Puffs ity of 220 00:00: every 12 [place] mcg/actuati 00 (twelve) Medi chen on inhaler hours. Branch fluticasone 2020-0 Yes [id number] 2{puff} Inhale 2 [facility] propionate 4-22 6 Puffs ity of 220 00:00: every 12 [place] mcg/actuati 00 (twelve) Medi chen on inhaler hours. Branch fluticasone 2021-0 Yes [id number] 2{puff} Inhale 2 [facility] propionate 4-22 6 Puffs ity of 220 00:00: every 12 [place] mcg/actuati 00 (twelve) Medi chen on inhaler hours. Branch fluticasone 1-0 Yes [id number] 2{puff} Inhale 2 [facility] propionate 4-22 6 [...] 2230, nebulizer Routine solution 6 mL benzonatate 0 Yes [id number] 100mg Take 1 [facility] 100 mg 4-15 capsule by ity of capsule 00:00: mouth 3 [place] (three) Medical times Branch daily as needed for Cough. benzonatate 0 Yes [id number] 100mg Take 1 [facility] 100 mg 4-15 capsule by ity of capsule 00:00: mouth 3 [place] (three) Medical times Branch daily as needed for Cough. benzonatate 0 Yes [id number] 100mg Take 1 [facility] 100 mg 4-15 capsule by ity of capsule 00:00: mouth 3 [place] (three) Medical times Branch daily as needed for Cough. benzonatate 2020-0 Yes [id number] 100mg Take 1 [facility] 100 mg 4-15 capsule by ity of capsule 00:00: mouth 3 [place] (three) Medical times Branch daily as needed for Cough. benzonatate 2020-0 Yes [id number] 100mg Take 1 [facility] 100 mg 4-15 capsule by ity of capsule 00:00: mouth 3 [place] 00 (three) Medical times Branch daily as needed for Cough. benzonatate 2020-0 Yes [id number] 100mg Take 1 [facility] 100 mg 4-15 capsule by ity of capsule 00:00: mouth 3 [place] 00 (three) Medical times Branch daily as needed for Cough. benzonatate 2020-0 Yes [id number] 100mg Take 1 [facility] 100 mg 4-15 capsule by ity of capsule 00:00: mouth (three) Medical times Branch daily as needed for Cough. benzonatate 2020-0 Yes [id number] 100mg Take 1 [facility] 100 mg 4-15 capsule by ity of capsule 00:00: mouth (three) Medical times Branch daily as needed for Cough. benzonatate 2020-0 Yes [id number] 100mg Take 1 [facility] 100 mg 4-15 capsule by ity of capsule 00:00: mouth (three) Medical times Branch daily as needed for Cough. benzonatate 2020-0 Yes [id number] 100mg Take 1 [facility] 100 mg 4-15 capsule by ity of capsule 00:00: mouth (three) Medical times Branch daily as needed for Cough. benzonatate 2020-0 Yes [id number] 100mg Take 1 [facility] 100 mg 4-15 capsule by ity of capsule 00:00: mouth (three) Medical times Branch daily as needed for Cough. benzonatate 2020-0 Yes [id number] 100mg Take 1 [facility] 100 mg 4-15 capsule by ity of capsule 00:00: mouth (three) Medical times Branch daily as needed for Cough. benzonatate 2020-0 Yes [id number] 100mg Take 1 [facility] 100 mg 4-15 capsule by ity of capsule 00:00: mouth (three) Medical times Branch daily as needed for Cough. benzonatate 2020-0 Yes [id number] 100mg Take 1 [facility] 100 mg 4-15 capsule by ity of capsule 00:00: mouth (three) Medical times Branch daily as needed for Cough. benzonatate 2020-0 Yes [id number] 100mg Take 1 [facility] 100 mg 4-15 capsule by ity of capsule 00:00: mouth (three) Medical times Branch daily as needed for Cough. benzonatate 2020-0 Yes [id number] 100mg Take 1 [facility] 100 mg 4-15 capsule by ity of capsule 00:00: mouth (three) Medical times Branch daily as needed for Cough. benzonatate 2020-0 Yes [id number] 100mg Take 1 [facility] 100 mg 4-15 capsule by ity of capsule 00:00: mouth (three) Medical times Branch daily as needed for Cough. benzonatate 2020-0 Yes [id number] 100mg Take 1 [facility] 100 mg 4-15 capsule by ity of capsule 00:00: mouth (three) Medical times Branch daily as needed for Cough. benzonatate 2020-0 Yes [id number] 100mg Take 1 [facility] 100 mg 4-15 capsule by ity of capsule 00:00: mouth (three) Medical times Branch daily as needed for Cough. benzonatate 2020-0 Yes [id number] 100mg Take 1 [facility] 100 mg 4-15 capsule by ity of capsule 00:00: mouth (three) Medical times Branch daily as needed for Cough. benzonatate 2020-0 Yes [id number] 100mg Take 1 [facility] 100 mg 4-15 capsule by ity of capsule 00:00: mouth (three) Medical times Branch daily as needed for Cough. benzonatate 2020-0 Yes [id number] 100mg Take 1 [facility] 100 mg 4-15 capsule by ity of capsule 00:00: mouth (three) Medical times Branch daily as needed for Cough. benzonatate 2020-0 Yes [id number] 100mg Take 1 [facility] 100 mg 4-15 capsule by ity of capsule 00:00: mouth (three) Medical times Branch daily as needed for Cough. benzonatate 2020-0 Yes [id number] 100mg Take 1 [facility] 100 mg 4-15 capsule by ity of capsule 00:00: mouth (three) Medical times Branch daily as needed for Cough. benzonatate 2020-0 Yes [id number] 100mg Take 1 [facility] 100 mg 4-15 capsule by ity of capsule 00:00: mouth (three) Medical times Branch daily as needed for Cough. benzonatate 2020-0 Yes [id number] 100mg Take 1 [facility] 100 mg 4-15 capsule by ity of capsule 00:00: mouth (three) Medical times Branch daily as needed for Cough. benzonatate 1-0 Yes [id number] 100mg Take 1 [facility] 100 mg 4-15 capsule by ity of capsule 00:00: mouth (three) Medical times Branch daily as needed for Cough. benzonatate 2020-0 Yes [id number] 100mg Take 1 [facility] 100 mg 4-15 capsule by ity of capsule 00:00: mouth 3 [place] 00 (three) Medical times Branch daily as needed for Cough. benzonatate Yes [id number] 100mg Take 1 [facility] 100 mg 4-15 [...] hours as Branch needed. hydrocortis 2020-0 Yes [id number] Apply to [facility] one 2.5 % 1-19 area(s) 2 ity o f cream 00:00: (two) [place] 00 times Medical daily. Branch hydrocortis 2020-0 Yes [id number] Apply to [facility] one 2.5 % 1-19 area(s) 2 ity o f cream 00:00: (two) [place] 00 times Medical daily. Branch hydrocortis 2020-0 Yes [id number] Apply to [facility] one 2.5 % 1-19 area(s) 2 ity o f cream 00:00: (two) [place] 00 times Medical daily. Branch hydrocortis 1-0 Yes [id number] Apply to [facility] one 2.5 % 1-19 area(s) 2 ity o f cream 00:00: (two) [place] 00 times Medical daily. Branch hydrocortis 2020-0 Yes [id number] Apply to [facility] one 2.5 % 1-19 area(s) 2 ity o f cream 00:00: (two) [place] 00 times Medical daily. Branch hydrocortis 2020-0 Yes [id number] Apply to [facility] one 2.5 % 1-19 area(s) 2 ity o f cream 00:00: (two) [place] 00 times Medical daily. Branch hydrocortis 2020-0 Yes [id number] Apply to [facility] one 2.5 % 1-19 area(s) 2 ity o f cream 00:00: (two) [place] 00 times Medical daily. Branch hydrocortis 2020-0 Yes [id number] Apply to [facility] one 2.5 % 1-19 area(s) 2 ity o f cream 00:00: (two) [place] 00 times Medical daily. Branch hydrocortis 1-0 Yes [id number] Apply to [facility] one 2.5 % 1-19 area(s) 2 ity o f cream 00:00: (two) [place] 00 times Medical daily. Branch hydrocortis 1-0 Yes [id number] Apply to [facility] one 2.5 % 1-19 area(s) 2 ity o f cream 00:00: (two) [place] 00 times Medical daily. Branch hydrocortis 1-0 Yes [id number] Apply to [facility] one 2.5 % 1-19 area(s) 2 ity o f cream 00:00: (two) [place] 00 times Medical daily. Branch hydrocortis 1-0 Yes [id number] Apply to [facility] one 2.5 % 1-19 area(s) 2 ity o f cream 00:00: (two) [place] 00 times Medical daily. Branch hydrocortis 1-0 Yes [id number] Apply to [facility] one 2.5 % 1-19 area(s) 2 ity o f cream 00:00: (two) [place] 00 times Medical daily. Branch hydrocortis 1-0 Yes [id number] Apply to [facility] one 2.5 % 1-19 area(s) 2 ity o f cream 00:00: (two) [place] 00 times Medical daily. Branch hydrocortis 1-0 Yes [id number] Apply to [facility] one 2.5 % 1-19 area(s) 2 ity o f cream 00:00: (two) [place] 00 times Medical daily. Branch hydrocortis 1-0 Yes [id number] Apply to [facility] one 2.5 % 1-19 area(s) 2 ity o f cream 00:00: (two) [place] 00 times Medical daily. Branch hydrocortis 2020-0 Yes [id number] Apply to [facility] one 2.5 % 1-19 area(s) 2 ity o f cream 00:00: (two) [place] 00 times Medical daily. Branch hydrocortis 2020-0 Yes [id number] Apply to [facility] one 2.5 % 1-19 area(s) 2 ity o f cream 00:00: (two) [place] 00 times Medical daily. Branch hydrocortis 1-0 Yes [id number] Apply to [facility] one 2.5 % 1-19 area(s) 2 ity o f cream 00:00: (two) [place] 00 times Medical daily. Branch hydrocortis 1-0 Yes [id number] Apply to [facility] one 2.5 % 1-19 area(s) 2 ity o f cream 00:00: (two) [place] 00 times Medical daily. Branch hydrocortis 1-0 Yes [id number] Apply to [facility] one 2.5 % 1-19 area(s) 2 ity o f cream 00:00: (two) [place] 00 times Medical daily. Branch hydrocortis 1-0 Yes [id number] Apply to [facility] one 2.5 % 1-19 area(s) 2 ity o f cream 00:00: (two) [place] 00 times Medical daily. Branch hydrocortis 2020-0 Yes [id number] Apply to [facility] one 2.5 % 1-19 area(s) 2 ity o f cream 00:00: (two) [place] 00 times Medical daily. Branch hydrocortis 2020-0 Yes [id number] Apply to [facility] one 2.5 % 1-19 area(s) 2 ity o f cream 00:00: (two) [place] 00 times Medical daily. Branch hydrocortis 2020-0 Yes [id number] Apply to [facility] one 2.5 % 1-19 area(s) 2 ity o f cream 00:00: (two) [place] 00 times Medical daily. Branch hydrocortis 2020-0 Yes [id number] Apply to [facility] one 2.5 % 1-19 area(s) 2 ity o f cream 00:00: (two) [place] 00 times Medical daily. Branch hydrocortis 2020-0 Yes [id number] Apply to [facility] one 2.5 % 1-19 area(s) 2 ity o f cream 00:00: (two) [place] 00 times Medical daily. Branch hydrocortis 2020-0 Yes [id number] Apply to [facility] one 2.5 % 1-19 area(s) 2 ity o f cream 00:00: (two) [place] 00 times Medical daily. Branch hydrocortis 2020-0 Yes [id number] Apply to [facility] one 2.5 % 1-19 area(s) 2 ity o f cream 00:00: (two) [place] 00 times Medical daily. Branch hydrocortis 2020-0 Yes [id number] Apply to [facility] one 2.5 % 1-19 area(s) 2 ity o f cream 00:00: (two) [place] 00 times Medical daily. Branch hydrocortis 2020-0 Yes [id number] Apply to [facility] one 2.5 % 1-19 area(s) 2 ity o f cream 00:00: (two) [place] 00 times Medical daily. Branch hydrocortis 2020-0 Yes [id number] Apply to [facility] one 2.5 % 1-19 area(s) 2 ity o f cream 00:00: (two) [place] 00 times Medical daily. Branch ibuprofen 2019-10 2020- No 600mg 600 mg, [facility] vers (IBU) 11-06 Oral, ity of tablet 600 05:45: 04:42 ONCE, 1 [facility] mg 00 :00 dose, [place] [facility] 09/05/20 at Branch 2345, DRAKE ibuprofen 2019- Yes [id number] 600mg Take 1 [facility] 600 mg 1-08 [id number] tablet by ity of tablet 00:00: mouth [place] 00 every 6 Medical (six) Branch hours as needed for Pain (scale 4-6). ibuprofen 2019-10 Yes [id number] 600mg Take 1 [facility] 600 mg 1-08 [id number] tablet by ity of tablet 00:00: mouth [place] 00 every 6 Medical (six) Branch hours as needed for Pain (scale 4-6). ibuprofen 2019-10 Yes [id number] 600mg Take 1 [facility] 600 mg 1-08 [id number] tablet by ity of tablet 00:00: mouth [place] 00 every 6 Medical (six) Branch hours as needed for Pain (scale 4-6). ibuprofen 2019-10 Yes [id number] 600mg Take 1 [facility] 600 mg 1-08 [id number] tablet by ity of tablet 00:00: mouth [place] 00 every 6 Medical (six) Branch hours as needed for Pain (scale 4-6). ibuprofen 2019-10 Yes [id number] 600mg Take 1 [facility] 600 mg 1-08 [id number] tablet by ity of tablet 00:00: mouth [place] 00 every 6 Medical (six) Branch hours as needed for Pain (scale 4-6). ibuprofen 2019-10 Yes [id number] 600mg Take 1 [facility] 600 mg 1-08 [id number] tablet by ity of tablet 00:00: mouth [place] 00 every 6 Medical (six) Branch hours as needed for Pain (scale 4-6). ibuprofen 2019-10 Yes [id number] 600mg Take 1 [facility] 600 mg 1-08 [id number] tablet by ity of tablet 00:00: mouth [place] 00 every 6 Medical (six) Branch hours as needed for Pain (scale 4-6). ibuprofen 2019-10 Yes [id number] 600mg Take 1 [facility] 600 mg 1-08 [id number] tablet by ity of tablet 00:00: mouth [place] 00 every 6 Medical (six) Branch hours as needed for Pain (scale 4-6). ibuprofen 2019-10 Yes [id number] 600mg Take 1 [facility] 600 mg 1-08 [id number] tablet by ity of tablet 00:00: mouth [place] 00 every 6 Medical (six) Branch hours as needed for Pain (scale 4-6). ibuprofen 2020- Yes [id number] 600mg Take 1 [facility] 600 mg 1-08 [id number] tablet by ity of tablet 00:00: mouth [place] 00 every 6 Medical (six) Branch hours as needed for Pain (scale 4-6). ibuprofen 2019- Yes [id number] 600mg Take 1 [facility] 600 mg 1-08 [id number] tablet by ity of tablet 00:00: mouth [place] 00 every 6 Medical (six) Branch hours as needed for Pain (scale 4-6). ibuprofen 2019- Yes [id number] 600mg Take 1 [facility] 600 mg 1-08 [id number] tablet by ity of tablet 00:00: mouth [place] 00 every 6 Medical (six) Branch hours as needed for Pain (scale 4-6). ibuprofen 2019- Yes [id number] 600mg Take 1 [facility] 600 mg 1-08 [id number] tablet by ity of tablet 00:00: mouth [place] 00 every 6 Medical (six) Branch hours as needed for Pain (scale 4-6). ibuprofen 2019- Yes [id number] 600mg Take 1 [facility] 600 mg 1-08 [id number] tablet by ity of tablet 00:00: mouth [place] 00 every 6 Medical (six) Branch hours as needed for Pain (scale 4-6). ibuprofen 2019-1 Yes [id number] 600mg Take 1 [facility] 600 mg 1-08 [id number] tablet by ity of tablet 00:00: mouth [place] 00 every 6 Medical (six) Branch hours as needed for Pain (scale 4-6). ibuprofen 2019- Yes [id number] 600mg Take 1 [facility] 600 mg 1-08 [id number] tablet by ity of tablet 00:00: mouth [place] 00 every 6 Medical (six) Branch hours as needed for Pain (scale 4-6). ibuprofen 2019-1 Yes [id number] 600mg Take 1 [facility] 600 mg 1-08 [id number] tablet by ity of tablet 00:00: mouth [place] 00 every 6 Medical (six) Branch hours as needed for Pain (scale 4-6). ibuprofen 2019-1 Yes [id number] 600mg Take 1 [facility] 600 mg 1-08 [id number] tablet by ity of tablet 00:00: mouth [place] 00 every 6 Medical (six) Branch hours as needed for Pain (scale 4-6). ibuprofen 2020-1 Yes [id number] 600mg Take 1 [facility] 600 mg 1-08 [id number] tablet by ity of tablet 00:00: mouth [place] 00 every 6 Medical (six) Branch hours as needed for Pain (scale 4-6). ibuprofen 2020-1 Yes [id number] 600mg Take 1 [facility] 600 mg 1-08 [id number] tablet by ity of tablet 00:00: mouth [place] 00 every 6 Medical (six) Branch hours as needed for Pain (scale 4-6). ibuprofen 2019- Yes [id number] 600mg Take 1 [facility] 600 mg 1-08 [id number] tablet by ity of tablet 00:00: mouth [place] 00 every 6 Medical (six) Branch hours as needed for Pain (scale 4-6). ibuprofen 2019- Yes [id number] 600mg Take 1 [facility] 600 mg 1-08 [id number] tablet by ity of tablet 00:00: mouth [place] 00 every 6 Medical (six) Branch hours as needed for Pain (scale 4-6). ibuprofen 2019- Yes [id number] 600mg Take 1 [facility] 600 mg 1-08 [id number] tablet by ity of tablet 00:00: mouth [place] 00 every 6 Medical (six) Branch hours as needed for Pain (scale 4-6). ibuprofen 2019- Yes [id number] 600mg Take 1 [facility] 600 mg 1-08 [id number] tablet by ity of tablet 00:00: mouth [place] 00 every 6 Medical (six) Branch hours as needed for Pain (scale 4-6). ibuprofen 2019-1 Yes [id number] 600mg Take 1 [facility] 600 mg 1-08 [id number] tablet by ity of tablet 00:00: mouth [place] 00 every 6 Medical (six) Branch hours as needed for Pain (scale 4-6). ibuprofen 2019-1 Yes [id number] 600mg Take 1 [facility] 600 mg 1-08 [id number] tablet by ity of tablet 00:00: mouth [place] 00 every 6 Medical (six) Branch hours as needed for Pain (scale 4-6). ibuprofen 2019-1 Yes [id number] 600mg Take 1 [facility] 600 mg 1-08 [id number] tablet by ity of tablet 00:00: mouth [place] 00 every 6 Medical (six) Branch hours as needed for Pain (scale 4-6). ibuprofen 2019-1 Yes [id number] 600mg Take 1 [facility] 600 mg 1-08 [id number] tablet by ity of tablet 00:00: mouth [place] 00 every 6 Medical (six) Branch hours as needed for Pain (scale 4-6). ibuprofen 2020- Yes [id number] 600mg Take 1 [facility] 600 mg 1-08 [id number] tablet by ity of tablet 00:00: mouth [place] 00 every 6 Medical (six) Branch hours as needed for Pain (scale 4-6). ibuprofen 2019- Yes [id number] 600mg Take 1 [facility] 600 mg 1-08 [id number] tablet by ity of tablet 00:00: mouth [place] 00 every 6 Medical (six) Branch hours as needed for Pain (scale 4-6). ibuprofen 2019- Yes [id number] 600mg Take 1 [facility] 600 mg 1-08 [id number] tablet by ity of tablet 00:00: mouth [place] 00 every 6 Medical (six) Branch hours as needed for Pain (scale 4-6). ibuprofen 2019- Yes [id number] 600mg Take 1 [facility] 600 mg 1-08 [id number] tablet by ity of tablet 00:00: mouth [place] 00 every 6 Medical (six) Branch hours as needed for Pain (scale 4-6). ibuprofen 2019- Yes [id number] 600mg Take 1 [facility] 600 mg 1-08 [id number] tablet by ity of tablet 00:00: mouth [place] 00 every 6 Medical (six) Branch hours as needed for Pain (scale 4-6). ibuprofen 2019-1 Yes [id number] 600mg Take 1 [facility] 600 mg 1-08 [id number] tablet by ity of tablet 00:00: mouth [place] 00 every 6 Medical (six) Branch hours as needed for Pain (scale 4-6). ibuprofen 2019-1 Yes [id number] 600mg Take 1 [facility] 600 mg 1-08 [id number] tablet by ity of tablet 00:00: mouth [place] 00 every 6 Medical (six) Branch hours as needed for Pain (scale 4-6). ibuprofen 2019-1 Yes [id number] 600mg Take 1 [facility] 600 mg 1-08 [id number] tablet by ity of tablet 00:00: mouth [place] 00 every 6 Medical (six) Branch hours as needed for Pain (scale 4-6). ibuprofen 2019-1 Yes [id number] 600mg Take 1 [facility] 600 mg 1-08 [id number] tablet by ity of tablet 00:00: mouth [place] 00 every 6 Medical (six) Branch hours as needed for Pain (scale 4-6). ibuprofen 2019-10 Yes [id number] 600mg Take 1 [facility] 600 mg 1-08 [id number] tablet by ity of tablet 00:00: mouth [place] 00 every 6 Medical (six) Branch hours as needed for Pain (scale 4-6). ibuprofen 2019-10 Yes [id number] 600mg Take 1 [facility] 600 mg 1-08 [id number] tablet by ity of tablet 00:00: mouth [place] 00 every 6 Medical (six) Branch hours as needed for Pain (scale 4-6). ibuprofen 2019-10 Yes [id number] 600mg Take 1 [facility] 600 mg 1-08 [id number] tablet by ity of tablet 00:00: mouth [place] 00 every 6 Medical (six) Branch hours as needed for Pain (scale 4-6). cephALEXin 2019-10 2020- No [id number] 500mg Take 1 [facility] (KEFLEX) 0-02 10-10 capsule by ity of 500 mg 00:00: 04:59 mouth 4 [place] capsule 00 :00 (four) Medical times Branch daily for 7 days. cephALEXin 2019-10- No [id number] 500mg Take 1 [facility] (KEFLEX) 0-02 10-10 capsule by ity of 500 mg 00:00: 04:59 mouth 4 [place] capsule 00 :00 (four) Medical times Branch daily for 7 days. cephALEXin 2019-10 2020- No [id number] 500mg Take 1 [facility] (KEFLEX) 0-02 10-10 capsule by ity of 500 mg 00:00: 04:59 mouth 4 [place] capsule 00 :00 (four) Medical times Branch daily for 7 days. cephALEXin 2019-10 2020- No [id number] 500mg Take 1 [facility] (KEFLEX) 0-02 10-10 capsule by ity of 500 mg 00:00: 04:59 mouth 4 [place] capsule 00 :00 (four) Medical times Branch daily for 7 days. permethrin 2020- No [id number] Apply to [facility] 1 % lotion 07-16 area(s) ity o f 00:00: 04:59 once now [place] 00 :00 for 1 Medical dose. Branch follow package directions amoxicillin Yes [id number] 875mg Take 11 mL [facility] 400 mg/5 mL 5-04 by mouth 2 it y of oral 00:00: (two) [place] suspension 00 times Medical daily. Branch amoxicillin Yes [id number] 875mg Take 11 mL [facility] 400 mg/5 mL 5-04 by mouth 2 it y of oral 00:00: (two) [place] suspension 00 times Medical daily. Branch amoxicillin 2020-0 Yes [id number] 875mg Take 11 mL [facility] 400 mg/5 mL 5-04 by mouth 2 it y of oral 00:00: (two) [place] suspension 00 times Medical daily. Branch amoxicillin 2020-0 2020- No [id number] 875mg Take 11 mL [facility] 400 mg/5 mL 5-04 09-10 by mouth 2 i ty of oral 00:00: 00:00 (two) [place] suspension 00 :00 times Medical daily. Branch amoxicillin 2020-0 2020- No [id number] 875mg Take 11 mL [facility] 400 mg/5 mL 5-04 09-10 by mouth 2 i ty of oral 00:00: 00:00 (two) [place] suspension 00 :00 times Medical daily. Branch amoxicillin 2020-0 2020- No [id number] 875mg Take 11 mL [facility] 400 mg/5 mL 5-04 05-04 by mouth 2 i ty of oral 00:00: 00:00 (two) [place] suspension 00 :00 times Medical daily for Branch 10 days. amoxicillin 2020-0 2020- No [id number] 875mg Take 11 mL [facility] 400 mg/5 mL 5-04 05-04 by mouth 2 i ty of oral 00:00: 00:00 (two) [place] suspension 00 :00 times Medical daily. Branch amoxicillin 2020-0 2020- No [id number] 875mg Take 11 mL [facility] 400 mg/5 mL 5-04 05-04 by mouth 2 i ty of oral 00:00: 00:00 (two) [place] suspension 00 :00 times Medical daily. Branch amoxicillin 2020-0 2020- No [id number] 875mg Take 11 mL [facility] 400 mg/5 mL 5-04 05-04 by mouth 2 i ty of oral 00:00: 00:00 (two) [place] suspension 00 :00 times Medical daily for Branch 10 days. amoxicillin 2020-0 2020- No [id number] 875mg Take 11 mL [facility] 400 mg/5 mL 5-04 05-04 by mouth 2 i ty of oral 00:00: 00:00 (two) [place] suspension 00 :00 times Medical daily. Branch amoxicillin 2020-0 2020- No [id number] 875mg Take 11 mL [facility] 400 mg/5 [...] hours as Branch needed. azithromyci 2020-0 Yes [id number] Take 500 [facility] n 250 mg 3-18 mg day 1, ity of tablet 00:00: then 250 [place] 00 mg days 2 Medical to 5. Branch PROAIR HFA 2020-0 Yes [id number] 2{puff} Inhale 2 [facility] 90 3-18 Puffs ity of mcg/actuati 00:00: every 4 [facility] on inhaler 00 (four) Medical hours as Branch needed for Wheezing or Shortness of Breath (or cough). Brand medically necessary azithromyci 2020-0 Yes [id number] Take 500 [facility] n 250 mg 3-18 mg day 1, ity of tablet 00:00: then 250 [place] 00 mg days 2 Medical to 5. Branch PROAIR HFA 2020-0 Yes [id number] 2{puff} Inhale 2 [facility] 90 3-18 Puffs ity of mcg/actuati 00:00: every 4 [place] on inhaler 00 (four) Medical hours as Branch needed for Wheezing or Shortness of Breath (or cough). Brand medically necessary azithromyci 2020-0 Yes [id number] Take 500 [facility] n 250 mg 3-18 mg day 1, ity of tablet 00:00: then 250 [place] 00 mg days 2 Medical to 5. Branch PROAIR HFA 2020-0 Yes [id number] 2{puff} Inhale 2 [facility] 90 3-18 Puffs ity of mcg/actuati 00:00: every 4 [place] on inhaler 00 (four) Medical hours as Branch needed for Wheezing or Shortness of Breath (or cough). Brand medically necessary azithromyci 2020-0 Yes [id number] Take 500 [facility] n 250 mg 3-18 mg day 1, ity of tablet 00:00: then 250 [place] 00 mg days 2 Medical to 5. Branch azithromyci 2020-0 Yes [id number] Take 500 [facility] n 250 mg 3-18 mg day 1, ity of tablet 00:00: then 250 [place] 00 mg days 2 Medical to 5. Branch PROAIR HFA 2019-0 Yes [id number] 2{puff} Inhale 2 [facility] 90 3-18 Puffs ity of mcg/actuati 00:00: every 4 [facility] on inhaler 00 (four) Medical hours as Branch needed for Wheezing or Shortness of Breath (or cough). Brand medically necessary azithromyci 2020-0 Yes [id number] Take 500 [facility] n 250 mg 3-18 mg day 1, ity of tablet 00:00: then 250 [place] 00 mg days 2 Medical to 5. Branch PROAIR HFA 2019-0 Yes [id number] 2{puff} Inhale 2 [facility] 90 3-18 Puffs ity of mcg/actuati 00:00: every 4 [facility] on inhaler 00 (four) Medical hours as Branch needed for Wheezing or Shortness of Breath (or cough). Brand medically necessary azithromyci 0 2020- No [id number] Take 500 [facility] n 250 mg 3-18 04-22 mg day 1, ity o f tablet 00:00: 00:00 then 250 [place] 00 :00 mg days 2 Medical to 5. Branch PROAIR HFA 2020- No [id number] 2{puff} Inhale 2 [facility] 90 3-18 03-24 Puffs ity of mcg/actuati 00:00: 00:00 every 4 [place] on inhaler 00 :00 (four) Medical hours as Branch needed for Wheezing or Shortness of Breath (or cough). Brand medically necessary penicillin 2019- 2020- No 1.210 Unive rs g 01-09- ity of benzathine 18:20: 18:29 [place] (BICILLIN [...] :00 Medical suspension Branch 600 mg ibuprofen 0 2019- No 600mg 600 mg, Uni vers (ADVIL 01-09 Oral, ONCE ity of CHILDREN'S) 18:13: 18:24 NOW, 1 [facility] as 100 mg/5 mL 00 :00 dose, Sat Med ical suspension 01/10/20 at [facility] 600 mg 1315, Routine spinosad 2019- 2020- No [id number] Apply to [facility] ([facility]) 01-0915 area(s) ity of 0.9 % 00:00: 04:59 once now [place] suspension 00 :00 for 1 Medical dose. Use Branch as directed. May repeat in 10 - 14 days if needed. ivermectin 2020-0 Yes [id number] Apply to [facility] - completely ity o f 0.5 % 00:00: coat dry [place] lotion 00 scalp and Medical hair. Branch Leave on for 10 minutes, rinse with warm water. May repeat in 10 days if needed. ivermectin 2020-0 Yes [id number] Apply to [facility] 3- completely ity o f 0.5 % 00:00: coat dry [place] lotion 00 scalp and Medical hair. Branch Leave on for 10 minutes, rinse with warm water. May repeat in 10 days if needed. ivermectin 2020-0 Yes [id number] Apply to [facility]) 3- completely ity o f 0.5 % 00:00: coat dry [place] lotion 00 scalp and Medical hair. Branch Leave on for 10 minutes, rinse with warm water. May repeat in 10 days if needed. ivermectin 2020-0 Yes [id number] Apply to [facility]) 3-12 completely ity o f 0.5 % 00:00: coat dry [place] lotion 00 scalp and Medical hair. Branch Leave on for 10 minutes, rinse with warm water. May repeat in 10 days if needed. ivermectin 2020-0 Yes [id number] Apply to [facility] 3 completely ity o f 0.5 % 00:00: coat dry [place] lotion 00 scalp and Medical hair. Branch Leave on for 10 minutes, rinse with warm water. May repeat in 10 days if needed. ivermectin 2020-0 Yes [id number] Apply to [facility] 3 completely ity o f 0.5 % 00:00: coat dry [place] lotion 00 scalp and Medical hair. Branch Leave on for 10 minutes, rinse with warm water. May repeat in 10 days if needed. ivermectin 2020-0 Yes [id number] Apply to [facility] 3 completely ity o f 0.5 % 00:00: coat dry [place] lotion 00 scalp and Medical hair. Branch Leave on for 10 minutes, rinse with warm water. May repeat in 10 days if needed. ivermectin 2020-0 Yes [id number] Apply to [facility] 3 completely ity o f 0.5 % 00:00: coat dry [place] lotion 00 scalp and Medical hair. Branch Leave on for 10 minutes, rinse with warm water. May repeat in 10 days if needed. ivermectin 2020-0 Yes [id number] Apply to [facility] 3 completely ity o f 0.5 % 00:00: coat dry [place] lotion 00 scalp and Medical hair. Branch Leave on for 10 minutes, rinse with warm water. May repeat in 10 days if needed. ivermectin 2020-0 Yes [id number] Apply to [facility] 3 completely ity o f 0.5 % 00:00: coat dry [place] lotion 00 scalp and Medical hair. Branch Leave on for 10 minutes, rinse with warm water. May repeat in 10 days if needed. ivermectin 2020-0 2020- No [id number] Apply to [facility] 01-07 completely ity of 0.5 % 00:00: 00:00 coat dry [place] lotion 00 :00 scalp and Medical hair. Branch Leave on for 10 minutes, rinse with warm water. May repeat in 10 days if needed. ivermectin 2020-0 2020- No [id number] Apply to [facility] 3-12 03-22 completely ity of 0.5 % 00:00: 00:00 coat dry [place] lotion 00 :00 scalp and Medical hair. Branch Leave on for 10 minutes, rinse with warm water. May repeat in 10 days if needed. mupirocin 2 2020-0 Yes [id number] Apply to [facility] % ointment 3-09 area(s) 3 ity of 00:00: (three) [place] 00 times Medical daily. Branch mupirocin 2 2020-0 Yes [id number] Apply to [facility] % ointment 3-09 area(s) 3 ity of 00:00: (three) [place] 00 times Medical daily. Branch mupirocin 2 2020-0 Yes [id number] Apply to [facility] % ointment 3-09 area(s) 3 ity of 00:00: (three) [place] 00 times Medical daily. Branch mupirocin 2 2020-0 Yes [id number] Apply to [facility] % ointment 3-09 area(s) 3 ity of 00:00: (three) [place] 00 times Medical daily. Branch mupirocin 2 2020-0 Yes [id number] Apply to [facility] % ointment 3-09 area(s) 3 ity of 00:00: (three) [place] 00 times Medical daily. Branch mupirocin 2 2020-0 Yes [id number] Apply to [facility] % ointment 3-09 area(s) 3 ity of 00:00: (three) [place] 00 times Medical daily. Branch mupirocin 2 2020-0 Yes [id number] Apply to [facility] % ointment 3-09 area(s) 3 ity of 00:00: (three) [place] 00 times Medical daily. Branch mupirocin 2 2020-0 Yes [id number] Apply to [facility] % ointment 3-09 area(s) 3 ity of 00:00: (three) [place] 00 times Medical daily. Branch mupirocin 2 2020-0 Yes [id number] Apply to [facility] % ointment 3-09 area(s) 3 ity of 00:00: (three) [place] 00 times Medical daily. Branch mupirocin 2 2020-0 Yes [id number] Apply to [facility] % ointment 3-09 area(s) 3 ity of 00:00: (three) [place] 00 times Medical daily. Branch mupirocin 2 2020-0 Yes [id number] Apply to [facility] % ointment 3-09 area(s) 3 ity of 00:00: (three) [place] 00 times Medical daily. Branch mupirocin 2 2020-0 2020- No [id number] Apply to [facility] % ointment 301-17 area(s) 3 ity of 00:00: 00:00 (three) [place] 00 :00 times Medical daily. Branch mupirocin 2 2020-0 2020- No [id number] Apply to [facility] % ointment 301-17 area(s) 3 ity of 00:00: 00:00 (three) [place] 00 :00 times Medical daily. Branch metoclopram 2020-0 Yes [id number] 1 tab Un danny rossy HCl 10 3-07 every 4hr ity of mg tablet 00:00: as needed [facility] as 00 for nausea Medical Branch metoclopram 2020-0 Yes [id number] 1 tab Un danny rossy HCl 10 3-07 every 4hr ity of mg tablet 00:00: as needed [facility] 00 for nausea Medical Branch metoclopram 2020-0 Yes [id number] 1 tab Un danny rossy HCl 10 3-07 every 4hr ity of mg tablet 00:00: as needed [facility] 00 for nausea Medical Branch metoclopram 2020-0 Yes [id number] 1 tab Un danny rossy HCl 10 3-07 every 4hr ity of mg tablet 00:00: as needed [facility] 00 for nausea Medical Branch metoclopram 2020-0 Yes [id number] 1 tab Un danny rossy HCl 10 3-07 every 4hr ity of mg tablet 00:00: as needed [facility] 00 for nausea Medical Branch metoclopram 2020-0 Yes [id number] 1 tab Un danny rossy HCl 10 3-07 every 4hr ity of mg tablet 00:00: as needed [facility] 00 for nausea Medical Branch metoclopram 2020-0 Yes [id number] 1 tab Un danny rossy HCl 10 3-07 every 4hr ity of mg tablet 00:00: as needed [facility] 00 for nausea Medical Branch metoclopram 2020-0 Yes [id number] 1 tab Un danny rossy HCl 10 3-07 every 4hr ity of mg tablet 00:00: as needed [facility] 00 for nausea Medical Branch metoclopram 2020-0 Yes [id number] 1 tab Un danny rossy HCl 10 3-07 every 4hr ity of mg tablet 00:00: as needed [facility] 00 for nausea Medical Branch metoclopram 2020-0 Yes [id number] 1 tab Un danny rossy HCl 10 3-07 every 4hr ity of mg tablet 00:00: as needed [facility] 00 for nausea Medical Branch metoclopram 2020-0 Yes [id number] 1 tab Un danny rossy HCl 10 3-07 every 4hr ity of mg tablet 00:00: as needed [facility] 00 for nausea Medical Branch metoclopram 2020-0 Yes [id number] 1 tab Un danny rossy HCl 10 3-07 every 4hr ity of mg tablet 00:00: as needed [facility] 00 for nausea Medical Branch metoclopram 2020-0 2020- No [id number] 1 tab [facility] rossy HCl 10 3-07 03-22 every 4hr ity of mg tablet 00:00: 00:[place] 00 :00 for nausea Medical Branch metoclopram 2020-0 2020- No [id number] 1 tab [facility] rossy HCl 10 3-07 03-22 every 4hr ity of mg tablet 00:00: 00:[place] 00 :00 for nausea Medical Branch spinosad 2018- Yes [id number] Apply to [facility] ([place]) 8-12 coat scalp ity of 0.9 % 00:00: and dry [place] suspension 00 hair, Medical rinse off Branch thoroughly after 10 minutes. May repeat in 7 days if live lice still seen. spinosad Yes [id number] Apply to [facility] ([place]) 8-12 coat scalp ity of 0.9 % 00:00: and dry [place] suspension 00 hair, Medical rinse off Branch thoroughly after 10 minutes. May repeat in 7 days if live lice still seen. spinosad 2019- No [id number] Apply to [facility] ([place]) 06-09 coat scalp ity of 0.9 % 00:00: 00:00 and dry [place] suspension 00 :00 hair, Medical rinse off Branch thoroughly after 10 minutes. May repeat in 7 days if live lice still seen. spinosad 2019- No [id number] Apply to [facility] ([place]) 06-09 coat scalp [...] :00 daily. Medical Branch ivermectin 2017-10- No [id number] Apply to [facility] (SKLICE) 206-09 completely ity [...] packet times Branch daily. mupirocin 2017- Yes [id number] Apply to [facility] (BACTROBAN) 07-22 area(s) 3 ity of 2 % cream 00:00: (three) [place] 00 times Medical daily. Branch sodium Yes [id number] 1{spray Use 1 Uni vers chloride 07-22 } Powderly in ity of 0.65 % 00:00: each [place] nasal spray 00 nostril as Me dical needed Branch (bid). mupirocin 2017- Yes [id number] Apply to [facility] (BACTROBAN) 07-22 area(s) 3 ity of 2 % cream 00:00: (three) [place] 00 times Medical daily. Branch sodium Yes [id number] 1{spray Use 1 Uni vers chloride 07-22 } [place]der[place] in ity of 0.65 % 00:00: each [place] nasal spray 00 nostril as Me dical needed Branch (bid). mupirocin 2019- No [id number] Apply to [facility] (BACTROBAN) 07-22 area(s) 3 it y of 2 % cream 00:00: 00:00 (three[place] 00 :[place] times Medical daily. Branch sodium 2019- No [id number] 1{spray Use 1 Un danny chloride 07-22 } [place]der[place] in ity of 0.65 % 00:00: 00:00 each [place] nasal spray 00 :00 nostril as Me dical needed Branch (bid). mupirocin 2019- No [id number] Apply to [facility] (BACTROBAN) 07-22 area(s) 3 it y of 2 % cream 00:00: 00:00 (three[place] :[place] times Medical daily. Branch sodium 2019- No [id number] 1{spray Use 1 Un danny chloride 07-22 } Powder[place] in ity of 0.65 % 00:00: 00:00 each [place] nasal spray 00 :00 nostril as Me dical needed Branch (bid). No known No [facility] Immunizations Ordered Immunization Filled Date Status Comments Sour ce Name Immunization Name Influenza Virus 2020-08-31 Completed Universit y of Vaccine Quad .5 mL IM 00:00:00 [facility] Medical 6+ MO Branch Meningococcal B, OMV 2020-08-31 Completed Univ ersity of 00:00:00 [facility] Influenza Virus 2020-08-31 Completed Universit y of Vaccine Quad .5 mL IM 00:00:00 [facility] Medical 6+ MO Branch Meningococcal B, OMV 2020-08-31 Completed Univ ersity of 00:00:00 [facility] Influenza Virus 2020-08-31 Completed Universit y of Vaccine Quad .5 mL IM 00:00:00 [facility] 6+ MO Branch Meningococcal B, OMV 2020-08-31 Completed Univ ersity of 00:00:00 [facility] Influenza Virus 2020-08-31 Completed Universit y of Vaccine Quad .5 mL IM 00:00:00 [facility] 6+ MO Branch Meningococcal B, OMV 2020-08-31 Completed Univ ersity of 00:00:00 [facility] Influenza Virus 2020-08-31 Completed Universit y of Vaccine Quad .5 mL IM 00:00:00 [facility] 6+ MO Branch Meningococcal B, OMV 2020-08-31 Completed Univ ersity of 00:00:00 [facility] Influenza Virus 2020-08-31 Completed Universit y of Vaccine Quad .5 mL IM 00:00:00 [facility] 6+ MO Branch Meningococcal B, OMV 2020-08-31 Completed Univ ersity of 00:00:00 [facility] Influenza Virus 2020-08-31 Completed Universit y of Vaccine Quad .5 mL IM 00:00:00 [facility] 6+ MO Branch Meningococcal B, OMV 2020-08-31 Completed Univ ersity of 00:00:00 [facility] Influenza Virus 2020-08-31 Completed Universit y of Vaccine Quad .5 mL IM 00:00:00 [facility] 6+ MO Branch Meningococcal B, OMV 2020-08-31 Completed Univ ersity of 00:00:00 [facility] Influenza Virus 2020-08-31 Completed Universit y of Vaccine Quad .5 mL IM 00:00:00 [facility] 6+ MO Branch Meningococcal B, OMV 2020-08-31 Completed Univ ersity of 00:00:00 [facility] Influenza Virus 2020-08-31 Completed Universit y of Vaccine Quad .5 mL IM 00:00:00 [facility] 6+ MO Branch Meningococcal B, OMV 2020-08-31 Completed Univ ersity of 00:00:00 [facility] Influenza Virus 2020-08-31 Completed Universit y of Vaccine Quad .5 mL IM 00:00:00 [facility] 6+ MO Branch Meningococcal B, OMV 2020-08-31 Completed Univ ersity of 00:00:00 [facility] Influenza Virus 2020-08-31 Completed Universit y of Vaccine Quad .5 mL IM 00:00:00 [facility] 6+ MO Branch Meningococcal B, OMV 2020-08-31 Completed Univ ersity of 00:00:00 [facility] Influenza Virus 2020-08-31 Completed Universit y of Vaccine Quad .5 mL IM 00:00:00 [facility] 6+ MO Branch Meningococcal B, OMV 2020-08-31 Completed Univ ersity of 00:00:00 [facility] Influenza Virus 2020-08-31 Completed Universit y of Vaccine Quad .5 mL IM 00:00:00 [facility] 6+ MO Branch Meningococcal B, OMV 2020-08-31 Completed Univ ersity of 00:00:00 [facility] Influenza Virus 2020-08-31 Completed Universit y of Vaccine Quad .5 mL IM 00:00:00 [facility] 6+ MO Branch Meningococcal B, OMV 2020-08-31 Completed Univ ersity of 00:00:00 [facility] Influenza Virus 2020-08-31 Completed Universit y of Vaccine Quad .5 mL IM 00:00:00 [facility] 6+ MO Branch Meningococcal B, OMV 2020-08-31 Completed Univ ersity of 00:00:00 [facility] Influenza Virus 2020-08-31 Completed Universit y of Vaccine Quad .5 mL IM 00:00:00 [facility] 6+ MO Branch Meningococcal B, OMV 2020-08-31 Completed Univ ersity of 00:00:00 [facility] Influenza Virus 2020-08-31 Completed Universit y of Vaccine Quad .5 mL IM 00:00:00 [facility] 6+ MO Branch Meningococcal B, OMV 2020-08-31 Completed Univ ersity of 00:00:00 [facility] Influenza Virus 2020-08-31 Completed Universit y of Vaccine Quad .5 mL IM 00:00:00 [facility] 6+ MO Branch Meningococcal B, OMV 2020-08-31 Completed Univ ersity of 00:00:00 [facility] Influenza Virus 2020-08-31 Completed Universit y of Vaccine Quad .5 mL IM 00:00:00 [facility] 6+ MO Branch Meningococcal B, OMV 2020-08-31 Completed Univ ersity of 00:00:00 [facility] Influenza Virus 2020-08-31 Completed Universit y of Vaccine Quad .5 mL IM 00:00:00 [facility] 6+ MO Branch Meningococcal B, OMV 2020-08-31 Completed Univ ersity of 00:00:00 [facility] Influenza Virus 2020-08-31 Completed Universit y of Vaccine Quad .5 mL IM 00:00:00 [facility] 6+ MO Branch Meningococcal B, OMV 2020-08-31 Completed Univ ersity of 00:00:00 [facility] Influenza Virus 2020-08-31 Completed Universit y of Vaccine Quad .5 mL IM 00:00:00 [facility] 6+ MO Branch Meningococcal B, OMV 2020-08-31 Completed Univ ersity of 00:00:00 [facility] Influenza Virus 2020-08-31 Completed Universit y of Vaccine Quad .5 mL IM 00:00:00 [facility] 6+ MO Branch Meningococcal B, OMV 2020-08-31 Completed Univ ersity of 00:00:00 [facility] Influenza Virus 2020-08-31 Completed Universit y of Vaccine Quad .5 mL IM 00:00:00 [facility] 6+ MO Branch Meningococcal B, OMV 2020-08-31 Completed Univ ersity of 00:00:00 [facility] Influenza Virus 2020-08-31 Completed Universit y of Vaccine Quad .5 mL IM 00:00:00 [facility] 6+ MO Branch Meningococcal B, OMV 2020-08-31 Completed Univ ersity of 00:00:00 [facility] Influenza Virus 2020-08-31 Completed Universit y of Vaccine Quad .5 mL IM 00:00:00 [facility] 6+ MO Branch Meningococcal B, OMV 2020-08-31 Completed Univ ersity of 00:00:00 [facility] Influenza Virus 2020-08-31 Completed Universit y of Vaccine Quad .5 mL IM 00:00:00 [facility] 6+ MO Branch Meningococcal B, OMV 2020-08-31 Completed Univ ersity of 00:00:00 [facility] Influenza Virus 2020-08-31 Completed Universit y of Vaccine Quad .5 mL IM 00:00:00 [facility] 6+ MO Branch Meningococcal B, OMV 2020-08-31 Completed Univ ersity of 00:00:00 [facility] Influenza Virus 2020-08-31 Completed Universit y of Vaccine Quad .5 mL IM 00:00:00 [facility] 6+ MO Branch Meningococcal B, OMV 2020-08-31 Completed Univ ersity of 00:00:00 [facility] Influenza Virus 2020-08-31 Completed Universit y of Vaccine Quad .5 mL IM 00:00:00 [facility] 6+ MO Branch Meningococcal B, OMV 2020-08-31 Completed Univ ersity of 00:00:00 [facility] Influenza Virus 2020-08-31 Completed Universit y of Vaccine Quad .5 mL IM 00:00:00 [facility] 6+ MO Branch Meningococcal B, OMV 2020-08-31 Completed Univ ersity of 00:00:00 [facility] Influenza Virus 2020-08-31 Completed Universit y of Vaccine Quad .5 mL IM 00:00:00 [facility] 6+ MO Branch Meningococcal B, OMV 2020-08-31 Completed Univ ersity of 00:00:00 [facility] Influenza Virus 2020-08-31 Completed Universit y of Vaccine Quad .5 mL IM 00:00:00 [facility] 6+ MO Branch Meningococcal B, OMV 2020-08-31 Completed Univ ersity of 00:00:00 [facility] Influenza Virus 2020-08-31 Completed Universit y of Vaccine Quad .5 mL IM 00:00:00 [facility] 6+ MO Branch Meningococcal B, OMV 2020-08-31 Completed Univ ersity of 00:00:00 [facility] Influenza Virus 2020-08-31 Completed Universit y of Vaccine Quad .5 mL IM 00:00:00 [facility] 6+ MO Branch Meningococcal B, OMV 2020-08-31 Completed Univ ersity of 00:00:00 [facility] Influenza Virus 2020-08-31 Completed Universit y of Vaccine Quad .5 mL IM 00:00:00 [facility] 6+ MO Branch Meningococcal B, OMV 2020-08-31 Completed Univ ersity of 00:00:00 [facility] Influenza Virus 2020-08-31 Completed Universit y of Vaccine Quad .5 mL IM 00:00:00 [facility] 6+ MO Branch Meningococcal B, OMV 2020-08-31 Completed Univ ersity of 00:00:00 [facility] Influenza Virus 2020-08-31 Completed Universit y of Vaccine Quad .5 mL IM 00:00:00 [facility] 6+ MO Branch Meningococcal B, OMV 2020-08-31 Completed Univ ersity of 00:00:00 [facility] Influenza Virus 2020-08-31 Completed Universit y of Vaccine Quad .5 mL IM 00:00:00 [facility] 6+ MO Branch Meningococcal B, OMV 2020-08-31 Completed Univ ersity of 00:00:00 [facility] Influenza Virus 2020-08-31 Completed Universit y of Vaccine Quad .5 mL IM 00:00:00 [facility] 6+ MO Branch Meningococcal B, OMV 2020-08-31 Completed Univ ersity of 00:00:00 [facility] Influenza Virus 2020-08-31 Completed Universit y of Vaccine Quad .5 mL IM 00:00:00 [facility] 6+ MO Branch Meningococcal B, OMV 2020-08-31 Completed Univ ersity of 00:00:00 [facility] Influenza Virus 2020-08-31 Completed Universit y of Vaccine Quad .5 mL IM 00:00:00 [facility] 6+ MO Branch Meningococcal B, OMV 2020-08-31 Completed Univ ersity of 00:00:00 [place] [facility] Influenza Virus 2020-08-31 Completed Universit y of Vaccine Quad .5 mL IM 00:00:00 [facility] Medical 6+ MO Branch Meningococcal B, OMV 2020-08-31 Completed Univ ersity of 00:00:00 [place] [facility] Influenza Virus 2020-08-31 Completed Universit y of Vaccine Quad .5 mL IM 00:00:00 [facility] 6+ MO Branch Meningococcal B, OMV 2020-08-31 Completed Univ ersity of 00:00:00 [place] [facility] Influenza Virus 2019-09-02 Completed Universit [...] ersity of 00:00:00 [facility] Meningococcal 2019-07-09 Completed University of Polysaccharide (groups 00:00:00 [place] [facility] A, C, Y and W-135) Branch conjugate vaccine (MCV4P) Meningococcal B, OMV 2019-07-09 Completed Univ ersity of 00:00:00 [facility] Meningococcal 2019-07-09 Completed University of Polysaccharide (groups 00:00:00 [place] [facility] A, C, Y and W-135) Branch conjugate vaccine (MCV4P) Meningococcal B, OMV 2019-07-09 Completed Univ ersity of 00:00:00 [facility] Meningococcal 2019-07-09 Completed University of Polysaccharide (groups 00:00:00 [place] [facility] A, C, Y and W-135) Branch conjugate vaccine (MCV4P) Meningococcal B, OMV 2019-07-09 Completed Univ ersity of 00:00:00 [facility] Meningococcal 2019-07-09 Completed University of Polysaccharide (groups 00:00:00 [place] [facility] A, C, Y and W-135) Branch conjugate vaccine (MCV4P) Meningococcal B, OMV 2019-07-09 Completed Univ ersity of 00:00:00 [facility] Meningococcal 2019-07-09 Completed University of Polysaccharide (groups 00:00:00 [place] [facility] A, C, Y and W-135) Branch conjugate vaccine (MCV4P) Meningococcal B, OMV 2019-07-09 Completed Univ ersity of 00:00:00 [facility] Meningococcal 2019-07-09 Completed University of Polysaccharide (groups 00:00:00 [place] [facility] A, C, Y and W-135) Branch conjugate vaccine (MCV4P) Meningococcal B, OMV 2019-07-09 Completed Univ ersity of 00:00:00 [facility] Meningococcal 2019-07-09 Completed University of Polysaccharide (groups 00:00:00 [place] [facility] A, C, Y and W-135) Branch conjugate vaccine (MCV4P) Meningococcal B, OMV 2019-07-09 Completed Univ ersity of 00:00:00 [facility] Meningococcal 2019-07-09 Completed University of Polysaccharide (groups 00:00:00 [place] [facility] A, C, Y and W-135) Branch conjugate vaccine (MCV4P) Meningococcal B, OMV 2019-07-09 Completed Univ ersity of 00:00:00 [facility] Meningococcal 2019-07-09 Completed University of Polysaccharide (groups 00:00:00 [place] [facility] A, C, Y and W-135) Branch conjugate vaccine (MCV4P) Meningococcal B, OMV 2019-07-09 Completed Univ ersity of 00:00:00 [facility] Meningococcal 2019-07-09 Completed University of Polysaccharide (groups 00:00:00 [place] [facility] A, C, Y and W-135) Branch conjugate vaccine (MCV4P) Meningococcal B, OMV 2019-07-09 Completed Univ ersity of 00:00:00 [facility] Meningococcal 2019-07-09 Completed University of Polysaccharide (groups 00:00:00 [place] [facility] A, C, Y and W-135) Branch conjugate vaccine (MCV4P) Meningococcal B, OMV 2019-07-09 Completed Univ ersity of 00:00:00 [facility] Meningococcal 2019-07-09 Completed University of Polysaccharide (groups 00:00:00 [place] [facility] A, C, Y and W-135) Branch conjugate vaccine (MCV4P) Meningococcal B, OMV 2019-07-09 Completed Univ ersity of 00:00:00 [facility] Meningococcal 2019-07-09 Completed University of Polysaccharide (groups 00:00:00 [place] [facility] A, C, Y and W-135) Branch conjugate vaccine (MCV4P) Meningococcal B, OMV 2019-07-09 Completed Univ ersity of 00:00:00 [facility] Meningococcal 2019-07-09 Completed University of Polysaccharide (groups 00:00:00 [place] [facility] A, C, Y and W-135) Branch conjugate vaccine (MCV4P) Meningococcal B, OMV 2019-07-09 Completed Univ ersity of 00:00:00 [facility] Meningococcal 2019-07-09 Completed University of Polysaccharide (groups 00:00:00 [place] [facility] A, C, Y and W-135) Branch conjugate vaccine (MCV4P) Meningococcal B, OMV 2019-07-09 Completed Univ ersity of 00:00:00 [facility] Meningococcal 2019-07-09 Completed University of Polysaccharide (groups 00:00:00 [place] [facility] A, C, Y and W-135) Branch conjugate vaccine (MCV4P) Meningococcal B, OMV 2019-07-09 Completed Univ ersity of 00:00:00 [facility] Meningococcal 2019-07-09 Completed University of Polysaccharide (groups 00:00:00 [place] [facility] A, C, Y and W-135) Branch conjugate vaccine (MCV4P) Meningococcal B, OMV 2019-07-09 Completed Univ ersity of 00:00:00 [facility] Meningococcal 2019-07-09 Completed University of Polysaccharide (groups 00:00:00 [place] [facility] A, C, Y and W-135) Branch conjugate vaccine (MCV4P) Meningococcal B, OMV 2019-07-09 Completed Univ ersity of 00:00:00 [facility] Meningococcal 2019-07-09 Completed University of Polysaccharide (groups 00:00:00 [place] [facility] A, C, Y and W-135) Branch conjugate vaccine (MCV4P) Meningococcal B, OMV 2019-07-09 Completed Univ ersity of 00:00:00 [facility] Meningococcal 2019-07-09 Completed University of Polysaccharide (groups 00:00:00 [place] [facility] A, C, Y and W-135) Branch conjugate vaccine (MCV4P) Meningococcal B, OMV 2019-07-09 Completed Univ ersity of 00:00:00 [facility] Meningococcal 2019-07-09 Completed University of Polysaccharide (groups 00:00:00 [place] [facility] A, C, Y and W-135) Branch conjugate vaccine (MCV4P) Meningococcal B, OMV 2019-07-09 Completed Univ ersity of 00:00:00 [facility] Meningococcal 2019-07-09 Completed University of Polysaccharide (groups 00:00:00 [place] [facility] A, C, Y and W-135) Branch conjugate vaccine (MCV4P) Meningococcal B, OMV 2019-07-09 Completed Univ ersity of 00:00:00 [facility] Meningococcal 2019-07-09 Completed [facility] of Polysaccharide (groups 00:00:00 [place] [facility] A, C, Y and W-135) Branch conjugate vaccine (MCV4P) Meningococcal B, OMV 2019-07-09 Completed Univ ersity of 00:00:00 [facility] Meningococcal 2019-07-09 Completed University of Polysaccharide (groups 00:00:00 [place] [facility] A, C, Y and W-135) Branch conjugate vaccine (MCV4P) Meningococcal B, OMV 2019-07-09 Completed Univ ersity of 00:00:00 [facility] Meningococcal 2019-07-09 Completed [facility] of Polysaccharide (groups 00:00:00 [place] [facility] A, C, Y and W-135) Branch conjugate vaccine (MCV4P) Meningococcal B, OMV 2019-07-09 Completed Univ ersity of 00:00:00 [facility] Meningococcal 2019-07-09 Completed University of Polysaccharide (groups 00:00:00 [facility] and W-135) Branch conjugate vaccine (MCV4P) Meningococcal B, OMV 2019-07-09 Completed [facility] ers[facility] of 00:00:00 [facility] Meningococcal 2019-07-09 Completed University of Polysaccharide (groups 00:00:00 [facility] W-[facility]) Branch conjugate vaccine (MCV4P) Meningococcal B, OMV 2019-07-09 Completed Univ ers[facility] of 00:00:00 [facility] Meningococcal 2019-07-09 Completed [facility] of Polysaccharide (groups 00:00:00 [facility] Y [facility] W-135) Branch conjugate vaccine (MCV4P) Meningococcal B, OMV 2019-07-09 Completed [facility] ers[facility] of 00:00:00 [facility] Meningococcal 2019-07-09 Completed [facility] Polysaccharide (groups 00:00:00 [facility] Y and W-135) Branch conjugate vaccine (MCV4P) Meningococcal B, OMV 2019-07-09 Completed [facility] ers[facility] of 00:00:00 [facility] Meningococcal 2019-07-09 Completed [facility] Polysaccharide (groups 00:00:00 [facility] Y and W-135) Branch conjugate vaccine (MCV4P) Meningococcal B, OMV 2019-07-09 Completed [facility] ers[facility] of 00:00:00 [facility] Meningococcal 2019-07-09 Completed [facility] Polysaccharide (groups 00:00:00 [facility] Y and W-135) Branch conjugate vaccine (MCV4P) Meningococcal B, OMV 2019-07-09 Completed [facility] of 00:00:00 [facility] Meningococcal 2019-07-09 Completed [facility] Polysaccharide (groups 00:00:00 [facility] Y and W-135) Branch conjugate vaccine (MCV4P) Meningococcal B, OMV 2019-07-09 Completed [facility] of 00:00:00 [facility] Meningococcal 2019-07-09 Completed [facility] Polysaccharide (groups 00:00:00 [facility] Y and W-135) Branch conjugate vaccine (MCV4P) Meningococcal B, OMV 2019-07-09 Completed [facility] of 00:00:00 [facility] Meningococcal 2019-07-09 Completed [facility] Polysaccharide (groups 00:00:00 [facility], Y and W-135) Branch conjugate vaccine (MCV4P) Meningococcal B, OMV 2019-07-09 Completed [facility] of 00:00:00 [facility] Meningococcal 2019-07-09 Completed [facility] Polysaccharide (groups 00:00:00 [facility], Y and W-135) Branch conjugate vaccine (MCV4P) Meningococcal B, OMV 2019-07-09 Completed [facility] of 00:00:00 [facility] Meningococcal 2019-07-09 Completed [facility] Polysaccharide (groups 00:00:00 [facility], Y and W-135) Branch conjugate vaccine (MCV4P) Meningococcal B, OMV 2019-07-09 Completed [facility] of 00:00:00 [facility] Meningococcal 2019-07-09 Completed [facility] Polysaccharide (groups 00:00:00 [facility] Y and W-135) Branch conjugate vaccine (MCV4P) Meningococcal B, OMV 2019-07-09 Completed [facility] of 00:00:00 [facility] Meningococcal 2019-07-09 Completed [facility] Polysaccharide (groups 00:00:00 [facility] Y and W-135) Branch conjugate vaccine (MCV4P) Meningococcal B, OMV 2019-07-09 Completed [facility] of 00:00:00 [facility] Meningococcal 2019-07-09 Completed [facility] Polysaccharide (groups 00:00:00 [facility] Y and W-135) Branch conjugate vaccine (MCV4P) Meningococcal B, OMV 2019-07-09 Completed [facility] of 00:00:00 [facility] Meningococcal 2019-07-09 Completed [facility] Polysaccharide (groups 00:00:00 [facility] Y and W-135) Branch conjugate vaccine (MCV4P) Meningococcal B, OMV 2019-07-09 Completed [facility] of 00:00:00 [facility] Meningococcal 2019-07-09 Completed [facility] Polysaccharide (groups 00:00:00 [facility] Y and W-135) Branch conjugate vaccine (MCV4P) Meningococcal B, OMV 2019-07-09 Completed [facility] of 00:00:00 [facility] Meningococcal 2019-07-09 Completed [facility] Polysaccharide (groups 00:00:00 [facility], Y and W-135) Branch conjugate vaccine (MCV4P) Meningococcal B, OMV 2019-07-09 Completed [facility] ers[facility] of 00:00:00 [facility] Meningococcal 2019-07-09 Completed [facility] Polysaccharide (groups 00:00:00 [facility], Y and W-135) Branch conjugate vaccine (MCV4P) Meningococcal B, OMV 2019-07-09 Completed [facility] of 00:00:00 [facility] Meningococcal 2019-07-09 Completed [facility] Polysaccharide (groups 00:00:00 [facility], Y and W-135) Branch conjugate vaccine (MCV4P) Meningococcal B, OMV 2019-07-09 Completed [facility] ers[facility] of 00:00:00 [facility] Meningococcal 2019-07-09 Completed [facility] Polysaccharide (groups 00:00:00 [facility], Y and W-135) Branch conjugate vaccine (MCV4P) Meningococcal B, OMV 2019-07-09 Completed [facility] of 00:00:00 [facility] Meningococcal 2019-07-09 Completed [facility] Polysaccharide (groups 00:00:00 [facility] Y and W-135) Branch conjugate vaccine (MCV4P) Meningococcal B, OMV 2019-07-09 Completed [facility] of 00:00:00 [facility] Meningococcal 2019-07-09 Completed [facility] Polysaccharide (groups 00:00:00 [facility] Y and W-135) Branch conjugate vaccine (MCV4P) Meningococcal B, OMV 2019-07-09 Completed [facility] of 00:00:00 [facility] Meningococcal 2019-07-09 Completed [facility] Polysaccharide (groups 00:00:00 [facility] Y and W-135) Branch conjugate vaccine (MCV4P) Meningococcal B, OMV 2019-07-09 Completed [facility] of 00:00:00 [facility] Meningococcal 2019-07-09 Completed [facility] Polysaccharide (groups 00:00:00 [facility], Y and W-135) Branch conjugate vaccine (MCV4P) Meningococcal B, OMV 2019-07-09 Completed [facility] of 00:00:00 [facility] Meningococcal 2019-07-09 Completed [facility] Polysaccharide (groups 00:00:00 [facility], Y and W-135) Branch conjugate vaccine (MCV4P) Meningococcal B, OMV 2019-07-09 Completed [facility] of 00:00:00 [facility] Meningococcal 2019-07-09 Completed [facility] Polysaccharide (groups 00:00:00 [facility] Y and W-135) Branch conjugate vaccine (MCV4P) Meningococcal B, OMV 2019-07-09 Completed [facility] of 00:00:00 [facility] Meningococcal 2019-07-09 Completed [facility] Polysaccharide (groups 00:00:00 [facility], Y and W-135) Branch conjugate vaccine (MCV4P) Meningococcal B, OMV 2019-07-09 Completed [facility] of 00:00:00 [facility] Meningococcal 2019-07-09 Completed [facility] Polysaccharide (groups 00:00:00 [facility] Y and W-135) Branch conjugate vaccine (MCV4P) Meningococcal B, OMV 2019-07-09 Completed [facility] of 00:00:00 [facility] Meningococcal 2019-07-09 Completed [facility] Polysaccharide (groups 00:00:00 [facility], Y and W-135) Branch conjugate vaccine (MCV4P) Meningococcal B, OMV 2019-07-09 Completed [facility] of 00:00:00 [facility] Meningococcal 2019-07-09 Completed [facility] Polysaccharide (groups 00:00:00 [facility] Y and W-135) Branch conjugate vaccine (MCV4P) Meningococcal B, OMV 2019-07-09 Completed [facility] of 00:00:00 [facility] Meningococcal 2019-07-09 Completed [facility] Polysaccharide (groups 00:00:00 [facility] Y and W-135) Branch conjugate vaccine (MCV4P) Meningococcal B, OMV 2019-07-09 Completed [facility] of 00:00:00 [facility] Meningococcal 2019-07-09 Completed [facility] Polysaccharide (groups 00:00:00 [facility], Y and W-135) Branch conjugate vaccine (MCV4P) Meningococcal B, OMV 2019-07-09 Completed [facility] of 00:00:00 [facility] Meningococcal 2019-07-09 Completed [facility] Polysaccharide (groups 00:00:00 [facility] Y and W-135) Branch conjugate vaccine (MCV4P) Meningococcal B, OMV 2019-07-09 Completed [facility] of 00:00:00 [facility] Meningococcal 2019-07-09 Completed [facility] Polysaccharide (groups 00:00:00 [facility] Y and W-135) Branch conjugate vaccine (MCV4P) Meningococcal B, OMV 2019-07-09 Completed [facility] of 00:00:00 [facility] Meningococcal 2019-07-09 Completed [facility] Polysaccharide (groups 00:00:00 [facility] Y and W-135) Branch conjugate vaccine (MCV4P) Meningococcal B, OMV 2019-07-09 Completed [facility] of 00:00:00 [facility] Meningococcal 2019-07-09 Completed [facility] Polysaccharide (groups 00:00:00 [facility], Y and W-135) Branch conjugate vaccine (MCV4P) Meningococcal B, OMV 2019-07-09 Completed [facility] of 00:00:00 [facility] Meningococcal 2019-07-09 Completed [facility] Polysaccharide (groups 00:00:00 [facility] Y and W-135) Branch conjugate vaccine (MCV4P) Meningococcal B, OMV 2019-07-09 Completed [facility] of 00:00:00 [facility] Meningococcal 2019-07-09 Completed [facility] Polysaccharide (groups 00:00:00 [facility] Y and W-135) Branch conjugate vaccine (MCV4P) Meningococcal B, OMV 2019-07-09 Completed [facility] of 00:00:00 [facility] Meningococcal 2019-07-09 Completed [facility] Polysaccharide (groups 00:00:00 [facility], Y and W-135) Branch conjugate vaccine (MCV4P) Meningococcal B, OMV 2019-07-09 Completed [facility] of 00:00:00 [facility] Meningococcal 2019-07-09 Completed [facility] Polysaccharide (groups 00:00:00 [facility] Y and W-135) Branch conjugate vaccine (MCV4P) Meningococcal B, OMV 2019-07-09 Completed [facility] of 00:00:00 [facility] Meningococcal 2019-07-09 Completed [facility] Polysaccharide (groups 00:00:00 [facility], Y and W-135) Branch conjugate vaccine (MCV4P) Meningococcal B, OMV 2019-07-09 Completed [facility] of 00:00:00 [facility] Meningococcal 2019-07-09 Completed [facility] Polysaccharide (groups 00:00:00 [facility], Y and W-135) Branch conjugate vaccine (MCV4P) Meningococcal B, OMV 2019-07-09 Completed [facility] of 00:00:00 [facility] Meningococcal 2019-07-09 Completed [facility] Polysaccharide (groups 00:00:00 [facility], Y and W-135) Branch conjugate vaccine (MCV4P) Meningococcal B, OMV 2019-07-09 Completed [facility] 00:00:00 [facility] Meningococcal 2019-07-09 Completed [facility] Polysaccharide (groups 00:00:00 [facility] Y and W-135) Branch conjugate vaccine (MCV4P) Meningococcal B, OMV 2019-07-09 Completed [facility] of 00:00:00 [facility] Meningococcal 2019-07-09 Completed [facility] Polysaccharide (groups 00:00:00 [facility], Y and W-135) Branch conjugate vaccine (MCV4P) Meningococcal B, OMV 2019-07-09 Completed [facility] 00:00:00 [facility] Meningococcal 2019-07-09 Completed [facility] Polysaccharide (groups 00:00:00 [facility], Y and W-135) Branch conjugate vaccine (MCV4P) Meningococcal 2019-07-09 Completed [facility] Polysaccharide (groups 00:00:00 [facility], Y and W-135) Branch conjugate vaccine (MCV4P) Meningococcal B, OMV 2019-07-09 Completed [facility] 00:00:00 [facility] Meningococcal B, OMV 2019-07-09 Completed [facility] of 00:00:00 [facility] Meningococcal 2019-07-09 Completed [facility] Polysaccharide (groups 00:00:00 [facility], Y and W-135) Branch conjugate vaccine (MCV4P) Meningococcal B, OMV 2019-07-09 Completed [facility] of 00:00:00 [facility] Meningococcal 2019-07-09 Completed [facility] Polysaccharide (groups 00:00:00 [facility], Y and W-135) Branch conjugate vaccine (MCV4P) Meningococcal B, OMV 2019-07-09 Completed [facility] of 00:00:00 [facility] Meningococcal 2019-07-09 Completed [facility] Polysaccharide (groups 00:00:00 [facility], Y and W-135) Branch conjugate vaccine (MCV4P) Meningococcal B, OMV 2019-07-09 Completed [facility] of 00:00:00 [facility] Meningococcal 2019-07-09 Completed [facility] Polysaccharide (groups 00:00:00 [facility], Y and W-135) Branch conjugate vaccine (MCV4P) Meningococcal B, OMV 2019-07-09 Completed [facility] of 00:00:00 [facility] Meningococcal 2019-07-09 Completed [facility] Polysaccharide (groups 00:00:00 [facility], Y and W-135) Branch conjugate vaccine (MCV4P) Meningococcal B, OMV 2019-07-09 Completed [facility] of 00:00:00 [facility] Meningococcal 2019-07-09 Completed [facility] Polysaccharide (groups 00:00:00 [facility], Y and W-135) Branch conjugate vaccine (MCV4P) Meningococcal B, OMV 2019-07-09 Completed [facility] of 00:00:00 [facility] Meningococcal 2019-07-09 Completed [facility] Polysaccharide (groups 00:00:00 [facility], Y and W-135) Branch conjugate vaccine (MCV4P) Meningococcal B, OMV 2019-07-09 Completed [facility] of 00:00:00 [facility] Meningococcal 2019-07-09 Completed [facility] Polysaccharide (groups 00:00:00 [facility], Y and W-135) Branch conjugate vaccine (MCV4P) Meningococcal B, OMV 2019-07-09 Completed [facility] of 00:00:00 [facility] Meningococcal 2019-07-09 Completed [facility] Polysaccharide (groups 00:00:00 [facility], Y and W-135) Branch conjugate vaccine (MCV4P) Meningococcal B, OMV 2019-07-09 Completed [facility] of 00:00:00 [facility] Meningococcal 2019-07-09 Completed [facility] Polysaccharide (groups 00:00:00 [facility], Y and W-135) Branch conjugate vaccine (MCV4P) Meningococcal B, OMV 2019-07-09 Completed [facility] of 00:00:00 [facility] Meningococcal 2019-07-09 Completed [facility] Polysaccharide (groups 00:00:00 [facility], Y and W-135) Branch conjugate vaccine (MCV4P) Meningococcal B, OMV 2019-07-09 Completed [facility] of 00:00:00 [facility] Meningococcal 2019-07-09 Completed [facility] Polysaccharide (groups 00:00:00 [facility] C, Y and W-135) Branch conjugate vaccine (MCV4P) Meningococcal B, OMV 2019-07-09 Completed [facility] of 00:00:00 [facility] Meningococcal 2019-07-09 Completed [facility] Polysaccharide (groups 00:00:00 [facility], Y and W-135) Branch conjugate vaccine (MCV4P) Meningococcal B, OMV 2019-07-09 Completed [facility] 00:00:00 [facility] Influenza Virus 2018-08-28 Completed Universit [...] University of 00:00:00 [facility] HPV9 2018-07-18 Completed University of 00:00:00 [facility] HPV9 2018-07-18 Completed University of 00:00:00 [facility] HPV9 2018-07-18 Completed University of 00:00:00 [facility] HPV9 2018-07-18 Completed University of 00:00:00 [facility] HPV9 2018-07-18 Completed University of 00:00:00 [facility] HPV9 2018-07-18 Completed University of 00:00:00 [facility] HPV9 2018-07-18 Completed [facility] of 00:00:00 [facility] HPV9 2018-07-18 Completed University of 00:00:00 [facility] HPV9 2018-07-18 Completed University of 00:00:00 [facility] HPV9 2018-07-18 Completed University of 00:00:00 [facility] HPV9 2018-07-18 Completed University of 00:00:00 [facility] HPV9 2018-07-18 Completed University of 00:00:00 [facility] HPV9 2018-07-18 Completed University of 00:00:00 [facility] HPV9 2018-07-18 Completed [facility] of 00:00:00 [facility] HPV9 2018-07-18 Completed [facility] of 00:00:00 [facility] HPV9 2018-07-18 Completed [facility] 00:00:00 [facility] HPV9 2018-07-18 Completed [facility] of 00:00:00 [facility] HPV9 2018-07-18 Completed University of 00:00:00 [facility] HPV9 2018-07-18 Completed University of 00:00:00 [facility] HPV9 2018-07-18 Completed University of 00:00:00 [facility] HPV9 2018-07-18 Completed [facility] of 00:00:00 [facility] HPV9 2018-07-18 Completed University of 00:00:00 [facility] HPV9 2018-07-18 Completed University of 00:00:00 [facility] HPV9 2018-07-18 Completed University of 00:00:00 [facility] HPV9 2018-07-18 Completed [facility] of 00:00:00 [facility] HPV9 2018-07-18 Completed University of 00:00:00 [facility] HPV9 2018-07-18 Completed University of 00:00:00 [facility] HPV9 2018-07-18 Completed University of 00:00:00 [facility] HPV9 2018-07-18 Completed University of 00:00:00 [facility] HPV9 2018-07-18 Completed University of 00:00:00 [facility] HPV9 2018-07-18 Completed University of 00:00:00 [facility] HPV9 2018-07-18 Completed University of 00:00:00 [facility] HPV9 2018-07-18 Completed University of 00:00:00 [facility] HPV9 2018-07-18 Completed University of 00:00:00 [facility] HPV9 2018-07-18 Completed University of 00:00:00 [facility] HPV9 2018-07-18 Completed University of 00:00:00 [facility] HPV9 2018-07-18 Completed University of 00:00:00 [facility] HPV9 2018-07-18 Completed [facility] of 00:00:00 [facility] HPV9 2018-07-18 Completed [facility] of 00:00:00 [facility] HPV9 2018-07-18 Completed University of 00:00:00 [facility] HPV9 2018-07-18 Completed University of 00:00:00 [facility] HPV9 2018-07-18 Completed University of 00:00:00 [facility] HPV9 2018-07-18 Completed University of 00:00:00 [facility] HPV9 2018-07-18 Completed [facility] of 00:00:00 [facility] HPV9 2018-07-18 Completed University of 00:00:00 [facility] HPV9 2018-07-18 Completed University of 00:00:00 [facility] HPV9 2018-07-18 Completed University of 00:00:00 [facility] HPV9 2018-07-18 Completed [facility] of 00:00:00 [facility] HPV9 2018-07-18 Completed [facility] of 00:00:00 [facility] HPV9 2018-07-18 Completed [facility] of 00:00:00 [facility] HPV9 2018-07-18 Completed [facility] of 00:00:00 [facility] HPV9 2018-07-18 Completed [facility] of 00:00:00 [facility] HPV9 2018-07-18 Completed University of 00:00:00 [facility] HPV9 2018-07-18 Completed University of 00:00:00 [facility] HPV9 2018-07-18 Completed University of 00:00:00 [facility] HPV9 2018-07-18 Completed University of 00:00:00 [facility] HPV9 2018-07-18 Completed University of 00:00:00 [facility] HPV9 2018-07-18 Completed University of 00:00:00 [facility] HPV9 2018-07-18 Completed University of 00:00:00 [facility] HPV9 2018-07-18 Completed [facility] of 00:00:00 [facility] HPV9 2018-07-18 Completed University of 00:00:00 [facility] HPV9 2018-07-18 Completed University of 00:00:00 [facility] HPV9 2018-07-18 Completed University of 00:00:00 [facility] HPV9 2018-07-18 Completed University of 00:00:00 [facility] HPV9 2018-07-18 Completed University of 00:00:00 [facility] HPV9 2018-07-18 Completed University of 00:00:00 [facility] HPV9 2018-07-18 Completed University of 00:00:00 [facility] HPV9 2018-07-18 Completed University of 00:00:00 [facility] HPV9 2018-07-18 Completed [facility] of 00:00:00 [facility] HPV9 2018-07-18 Completed University of 00:00:00 [facility] HPV9 2018-07-18 Completed University of 00:00:00 [facility] HPV9 2018-07-18 Completed University of 00:00:00 [facility] HPV9 2018-07-18 Completed University of 00:00:00 [facility] HPV9 2018-07-18 Completed [facility] of 00:00:00 [facility] HPV9 2018-07-18 Completed [facility] of 00:00:00 [facility] HPV9 2018-07-18 Completed University of 00:00:00 [facility] HPV9 2018-07-18 Completed University of 00:00:00 [facility] HPV9 2018-07-18 Completed University of 00:00:00 [facility] HPV9 2018-07-18 Completed University of 00:00:00 [facility] HPV9 2018-07-18 Completed [facility] of 00:00:00 [facility] HPV9 2018-07-18 Completed [facility] of 00:00:00 [facility] HPV9 2018-07-18 Completed University of 00:00:00 [facility] HPV9 2018-07-18 Completed University of 00:00:00 [facility] HPV9 2018-07-18 Completed [facility] of 00:00:00 [facility] HPV9 2018-07-18 Completed University of 00:00:00 [facility] HPV9 2018-07-18 Completed University of 00:00:00 [facility] HPV9 2018-07-18 Completed University of 00:00:00 [facility] HPV9 2018-07-18 Completed [facility] of 00:00:00 [facility] HPV9 2018-01-03 Completed [facility] of 00:00:00 [facility] HPV9 2018-01-03 Completed [facility] of 00:00:00 [facility] HPV9 2018-01-03 Completed University of 00:00:00 [facility] HPV9 2018-01-03 Completed [facility] of 00:00:00 [facility] HPV9 2018-01-03 Completed [facility] of 00:00:00 [facility] HPV9 2018-01-03 Completed [facility] of 00:00:00 [facility] HPV9 2018-01-03 Completed [facility] of 00:00:00 [facility] HPV9 2018-01-03 Completed [facility] of 00:00:00 [facility] HPV9 2018-01-03 Completed [facility] of 00:00:00 [facility] HPV9 2018-01-03 Completed [facility] of 00:00:00 [facility] HPV9 2018-01-03 Completed [facility] of 00:00:00 [facility] HPV9 2018-01-03 Completed University of [...] Branch HPV9 2018-01-03 Completed [facility] of 00:00:00 [facility] HPV9 2018-01-03 Completed [facility] of [...] 2018-01-03 Completed [facility] 00:00:00 [facility] HPV9 2018-01-03 Completed [facility] of 00:00:00 [facility] HPV9 2018-01-03 Completed [facility] of 00:00:00 [facility] HPV9 2018-01-03 Completed [facility] of 00:00:00 [facility] HPV9 2018-01-03 Completed [facility] of 00:00:00 [facility] HPV9 2018-01-03 Completed [facility] of 00:00:00 [facility] HPV9 2018-01-03 Completed [facility] of 00:00:00 [facility] HPV9 2018-01-03 Completed [facility] of 00:00:00 [facility] HPV9 2018-01-03 Completed [facility] 00:00:00 [facility] HPV9 2018-01-03 Completed [facility] of 00:00:00 [facility] HPV9 2018-01-03 Completed [facility] of 00[facility]00:00 [facility] HPV9 2018-01-03 Completed [facility] 00:00:00 [facility] HPV9 2018-01-03 Completed [facility] 00:00:00 [facility] HPV9 2018-01-03 Completed [facility] 00:00:00 [facility] HPV9 2018-01-03 Completed [facility] 00:00:00 [facility] HPV9 2018-01-03 Completed [facility] 00:00:00 [facility] HPV9 2018-01-03 Completed [facility] 00:00:00 [facility] HPV9 2018-01-03 Completed [facility] of 00:00:00 [facility] HPV9 2018-01-03 Completed [facility] of 00:00:00 [facility] HPV9 2018-01-03 Completed [facility] of 00:00:00 [facility] HPV9 2018-01-03 Completed [facility] of 00:00:00 [facility] HPV9 2018-01-03 Completed [facility] 00:00:00 [facility] HPV9 2018-01-03 Completed [facility] 00:00:00 [facility] Influenza Virus 2015-11-11 Completed Universit y [...] Vaccine Quad IM 3+ YRS 00:00:00 [facility] Influenza Virus 2015-11-11 Completed Universit y of [...] Vaccine Quad IM 3+ YRS 00:00:00 [facility] Influenza Virus 2015-11-11 Completed [facility]it y of Vaccine Quad IM 3+ YRS 00:00:00 [facility] Influenza Virus 2015-11-11 Completed [facility]it y of Vaccine Quad IM 3+ YRS 00:00:00 [facility] Influenza Virus 2015-11-11 Completed [facility]it y of Vaccine Quad IM 3+ YRS 00:00:00 [facility] Influenza Virus 2015-11-11 Completed Universit y of [...] Vaccine Quad IM 3+ YRS 00:00:00 [facility] Influenza Virus 2015-11-11 Completed [facility]it y of Vaccine Quad IM 3+ YRS 00:00:00 [facility] Influenza Virus 2015-11-11 Completed [facility]it y of Vaccine Quad IM 3+ YRS 00:00:00 [facility] Influenza Virus 2015-11-11 Completed [facility]it y of Vaccine Quad IM 3+ YRS 00:00:00 [facility] Influenza Virus 2015-11-11 Completed [facility] [...] [facility]11 Completed University 00:00:00 [facility] Meningococcal 2014-11-11 Completed University [facility] 00:00:00 [facility] ical (groups A, C, Y and Branc h W-135) conjugate vaccine (MCV4O) Influenza Virus 2014-11-11 Completed Universit y of Vaccine Quad IM 3+ YRS 00:00:00 [facility] Tdap 2014-11-11 Completed [facility] 00:00:00 [facility] Meningococcal 2014-11-11 Completed [facility] 00:00:00 [place] [facility] (groups A, C, Y and Branc h W-135) conjugate vaccine (MCV4O) Influenza Virus 2014-11-11 Completed [facility]it y of Vaccine Quad IM 3+ YRS 00:00:00 [facility] Tdap 2014-11-11 Completed [facility] 00:00:00 [facility] Meningococcal 2014-11-11 Completed [facility] Oligosaccharide 00:00:00 [place] [facility] (groups A, C, Y and Branc h W-135) conjugate vaccine (MCV4O) Influenza Virus 2014-11-11 Completed [facility]it y of Vaccine Quad IM 3+ YRS 00:00:00 [facility] Tdap 2014-11-11 Completed [facility] of 00:00:00 [facility] Meningococcal 2014-11-11 Completed [facility] Oligosaccharide 00:00:00 [place] [facility] (groups A, C, Y and Branc h W-135) conjugate vaccine (MCV4O) Influenza Virus 2014-11-11 Completed [facility]it y of Vaccine Quad IM 3+ YRS 00:00:00 [facility] Tdap 2014-11-11 Completed [facility] 00:00:00 [facility] Meningococcal 2014-11-11 Completed [facility] Oligosaccharide 00:00:00 [place] [facility] (groups A, C, Y and Branc h W-135) conjugate vaccine (MCV4O) Influenza Virus 2014-11-11 Completed Universit y of Vaccine Quad IM 3+ YRS 00:00:00 [facility] Tdap 2014-11-11 Completed [facility] 00:00:00 [facility] Meningococcal 2014-11-11 Completed [facility] Oligosaccharide 00:00:00 [place] [facility] (groups A, C, Y and Branc h W-135) conjugate vaccine (MCV4O) Influenza Virus 2014-11-11 Completed [facility]it y of Vaccine Quad IM 3+ YRS 00:00:00 [facility] Tdap 2014-11-11 Completed [facility] of 00:00:00 [facility] Meningococcal 2014-11-11 Completed [facility] Oligosaccharide 00:00:00 [place] [facility] (groups A, C, Y and Branc h W-135) conjugate vaccine (MCV4O) Tdap 2014-11-11 Completed [facility] 00:00:00 [facility] Meningococcal 2014-11-11 Completed [facility] Oligosaccharide 00:00:00 [place] [facility] (groups A, C, Y and Branc h W-135) conjugate vaccine (MCV4O) Influenza Virus 2014-11-11 Completed [facility]it y of Vaccine Quad IM 3+ YRS 00:00:00 [facility] Influenza Virus 2014-11-11 Completed [facility]it y of Vaccine Quad IM 3+ YRS 00:00:00 [facility] Tdap 2014-11-11 Completed [facility] of 00:00:00 [facility] Meningococcal 2014-11-11 Completed [facility] Oligosaccharide 00:00:00 [place] [facility] (groups A, C, Y and Branc h W-135) conjugate vaccine (MCV4O) Influenza Virus 2014-11-11 Completed [facility]it y of Vaccine Quad IM 3+ YRS 00:00:00 [facility] Tdap 2014-11-11 Completed [facility] of 00:00:00 [facility] Meningococcal 2014-11-11 Completed [facility] Oligosaccharide 00:00:00 [place] [facility] (groups A, C, Y and Branc h W-135) conjugate vaccine (MCV4O) Influenza Virus 2014-11-11 Completed [facility]it y of Vaccine Quad IM 3+ YRS 00:00:00 [facility] Tdap 2014-11-11 Completed [facility] of 00:00:00 [facility] Meningococcal 2014-11-11 Completed [facility] Oligosaccharide 00:00:00 [place] [facility] (groups A, C, Y and Branc h W-135) conjugate vaccine (MCV4O) Influenza Virus 2014-11-11 Completed [facility]it y of Vaccine Quad IM 3+ YRS 00:00:00 [facility] TDAP 2014-11-11 Completed [facility] of 00:00:00 [facility] Meningococcal 2014-11-11 Completed [facility] Oligosaccharide 00:00:00 [place] [facility] (groups A, C, Y and Branc h W-135) conjugate vaccine (MCV4O) Influenza Virus 2014-11-11 Completed [facility]it y of Vaccine Quad IM 3+ YRS 00:00:00 [facility] TDAP 2014-11-11 Completed [facility] of 00:00:00 [facility] Meningococcal 2014-11-11 Completed [facility] Oligosaccharide 00:00:00 [place] [facility] (groups A, C, Y and Branc h W-135) conjugate vaccine (MCV4O) Influenza Virus 2014-11-11 Completed [facility]it y of Vaccine Quad IM 3+ YRS 00:00:00 [facility] TDAP 2014-11-11 Completed [facility] of 00:00:00 [facility] Meningococcal 2014-11-11 Completed [facility] Oligosaccharide 00:00:00 [place] [facility] (groups A, C, Y and Branc h W-135) conjugate vaccine (MCV4O) Influenza Virus 2014-11-11 Completed [facility]it y of Vaccine Quad IM 3+ YRS 00:00:00 [facility] TDAP 2014-11-11 Completed [facility] of 00:00:00 [facility] Meningococcal 2014-11-11 Completed [facility] Oligosaccharide 00:00:00 [place] [facility] (groups A, C, Y and Branc h W-135) conjugate vaccine (MCV4O) Influenza Virus 2014-11-11 Completed [facility]it y of Vaccine Quad IM 3+ YRS 00:00:00 [facility] TDAP 2014-11-11 Completed [facility] of 00:00:00 [facility] Meningococcal 2014-11-11 Completed [facility] Oligosaccharide 00:00:00 [place] [facility] (groups A, C, Y and Branc h W-135) conjugate vaccine (MCV4O) Influenza Virus 2014-11-11 Completed [facility]it y of Vaccine Quad IM 3+ YRS 00:00:00 [facility] Tdap 2014-11-11 Completed [facility] of 00:00:00 [facility] Meningococcal 2014-11-11 Completed [facility] Oligosaccharide 00:00:00 [place] [facility] (groups A, C, Y and Branc h W-135) conjugate vaccine (MCV4O) Influenza Virus 2014-11-11 Completed [facility]it y of Vaccine Quad IM 3+ YRS 00:00:00 [facility] TDAP 2014-11-11 Completed [facility] of 00:00:00 [facility] Meningococcal 2014-11-11 Completed [facility] of Oligosaccharide 00:00:00 [place] [facility] (groups A, C, Y and Branc h W-135) conjugate vaccine (MCV4O) Influenza Virus 2014-11-11 Completed [facility]it y of Vaccine Quad IM 3+ YRS 00:00:00 [facility] TDAP 2014-11-11 Completed [facility] of 00:00:00 [facility] Meningococcal 2014-11-11 Completed [facility] of Oligosaccharide 00:00:00 [place] [facility] (groups A, C, Y and Branc h W-135) conjugate vaccine (MCV4O) Influenza Virus 2014-11-11 Completed Universit y of Vaccine Quad IM 3+ YRS 00:00:00 [facility] TDAP 2014-11-11 Completed [facility] of 00:00:00 [facility] Meningococcal 2014-11-11 Completed [facility] Oligosaccharide 00:00:00 [place] [facility] (groups A, C, Y and Branc h W-135) conjugate vaccine (MCV4O) Influenza Virus 2014-11-11 Completed [facility] 00:[facility]:00 [facility] Meningococcal 2014-11-11 Completed [facility] Oligosaccharide 00:00:00 [place] [facility] (groups A, C, Y and Branc h W-135) conjugate vaccine (MCV4O) Influenza Virus 2014-11-11 Completed Universit y of Vaccine Quad IM 3+ YRS 00:00:00 [facility] TDAP 2014-11-11 Completed [facility] of 00:00:00 [facility] Meningococcal 2014-11-11 Completed [facility] of Oligosaccharide 00:00:00 [place] [facility] (groups A, C, Y and Branc h W-135) conjugate vaccine (MCV4O) Influenza Virus 2014-11-11 Completed Universit y of Vaccine Quad IM 3+ YRS 00:00:00 [facility] TDAP 2014-11-11 Completed [facility] of 00:00:00 [facility] Meningococcal 2014-11-11 Completed [facility] of Oligosaccharide 00:00:00 [place] [facility] (groups A, C, Y and Branc h W-135) conjugate vaccine (MCV4O) Influenza Virus 2014-11-11 Completed [facility]it y of Vaccine Quad IM 3+ YRS 00:00:00 [facility] TDAP 2014-11-11 Completed [facility] of 00:00:00 [facility] Meningococcal 2014-11-11 Completed [facility] of Oligosaccharide 00:00:00 [place] [facility] (groups A, C, Y and Branc h W-135) conjugate vaccine (MCV4O) Influenza Virus 2014-11-11 Completed Universit y of Vaccine Quad IM 3+ YRS 00:00:00 [facility] TDAP 2014-11-11 Completed [facility] of 00:00:00 [facility] Meningococcal 2014-11-11 Completed [facility] Oligosaccharide 00:00:00 [place] [facility] (groups A, C, Y and Branc h W-135) conjugate vaccine (MCV4O) Influenza Virus 2014-11-11 Completed [facility]it y of Vaccine Quad IM 3+ YRS 00:00:00 [facility] TDAP 2014-11-11 Completed [facility] of 00:00:00 [facility] Meningococcal 2014-11-11 Completed [facility] Oligosaccharide 00:00:00 [place] [facility] (groups A, C, Y and Branc h W-135) conjugate vaccine (MCV4O) Influenza Virus 2014-11-11 Completed Universit y of Vaccine Quad IM 3+ YRS 00:00:00 [facility] TDAP 2014-11-11 Completed [facility] of 00:00:00 [facility] Meningococcal 2014-11-11 Completed [facility] Oligosaccharide 00:00:00 [place] [facility] (groups A, C, Y and Branc h W-135) conjugate vaccine (MCV4O) Influenza Virus 2014-11-11 Completed [facility]it y of Vaccine Quad IM 3+ YRS 00:00:00 [facility] Tdap 2014-11-11 Completed [facility] of 00:00:00 [facility] Meningococcal 2014-11-11 Completed [facility] Oligosaccharide 00:00:00 [place] [facility] (groups A, C, Y and Branc h W-135) conjugate vaccine (MCV4O) Influenza Virus 2014-11-11 Completed [facility]it y of Vaccine Quad IM 3+ YRS 00:00:00 [facility] TDAP 2014-11-11 Completed [facility] of 00:00:00 [facility] Meningococcal 2014-11-11 Completed [facility] of Oligosaccharide 00:00:00 [place] [facility] (groups A, C, Y and Branc h W-135) conjugate vaccine (MCV4O) Influenza Virus 2014-11-11 Completed Universit y of Vaccine Quad IM 3+ YRS 00:00:00 [facility] TDAP 2014-11-11 Completed [facility] of 00:00:00 [facility] Meningococcal 2014-11-11 Completed [facility] of Oligosaccharide 00:00:00 [place] [facility] (groups A, C, Y and Branc h W-135) conjugate vaccine (MCV4O) Influenza Virus 2014-11-11 Completed [facility]it y of Vaccine Quad IM 3+ YRS 00:00:00 [facility] TDAP 2014-11-11 Completed [facility] of 00:00:00 [facility] Meningococcal 2014-11-11 Completed [facility] Oligosaccharide 00:00:00 [place] [facility] (groups A, C, Y and Branc h W-135) conjugate vaccine (MCV4O) Influenza Virus 2014-11-11 Completed Universit y of Vaccine Quad IM 3+ YRS 00:00:00 [facility] TDAP 2014-11-11 Completed [facility] of 00:00:00 [facility] Meningococcal 2014-11-11 Completed [facility] Oligosaccharide 00:00:00 [place] [facility] (groups A, C, Y and Branc h W-135) conjugate vaccine (MCV4O) Influenza Virus 2014-11-11 Completed Universit y of Vaccine Quad IM 3+ YRS 00:00:00 [facility] TDAP 2014-11-11 Completed [facility] of 00:00:00 [facility] Meningococcal 2014-11-11 Completed [facility] Oligosaccharide 00:00:00 [place] [facility] (groups A, C, Y and Branc h W-135) conjugate vaccine (MCV4O) Influenza Virus 2014-11-11 Completed [facility]it y of Vaccine Quad IM 3+ YRS 00:00:00 [facility] TDAP 2014-11-11 Completed [facility] of 00:00:00 [facility] Meningococcal 2014-11-11 Completed [facility] Oligosaccharide 00:00:00 [place] [facility] (groups A, C, Y and Branc h W-135) conjugate vaccine (MCV4O) Influenza Virus 2014-11-11 Completed [facility]it y of Vaccine Quad IM 3+ YRS 00:00:00 [facility] TDAP 2014-11-11 Completed [facility] of 00:00:00 [facility] Meningococcal 2014-11-11 Completed [facility] Oligosaccharide 00:00:00 [place] [facility] (groups A, C, Y and Branc h W-135) conjugate vaccine (MCV4O) Influenza Virus 2014-11-11 Completed [facility]it y of Vaccine Quad IM 3+ YRS 00:00:00 [facility] TDAP 2014-11-11 Completed [facility] of 00:00:00 [facility] Meningococcal 2014-11-11 Completed [facility] Oligosaccharide 00:00:00 [place] [facility] (groups A, C, Y and Branc h W-135) conjugate vaccine (MCV4O) Influenza Virus 2014-11-11 Completed [facility]it y of Vaccine Quad IM 3+ YRS 00:00:00 [facility] Tdap 2014-11-11 Completed [facility] of 00:00:00 [facility] TDAP 2014-11-11 Completed [facility] of 00:00:00 [facility] Meningococcal 2014-11-11 Completed [facility] Oligosaccharide 00:00:00 [place] [facility] (groups A, C, Y and Branc h W-135) conjugate vaccine (MCV4O) Influenza Virus 2014-11-11 Completed [facility]it y of Vaccine Quad IM 3+ YRS 00:00:00 [facility] Meningococcal 2014-11-11 Completed [facility]osaccharide 00:00:00 [place] [facility] (groups A, C, Y and Branc h W-135) conjugate vaccine (MCV4O) Influenza Virus 2014-11-11 Completed [facility]it y of Vaccine Quad IM 3+ YRS 00:00:00 [facility] TDAP 2014-11-11 Completed [facility] of 00:00:00 [facility] Meningococcal 2014-11-11 Completed [facility] Oligosaccharide 00:00:00 [place] [facility] (groups A, C, Y and Branc h W-135) conjugate vaccine (MCV4O) Influenza Virus 2014-11-11 Completed [facility]it y of Vaccine Quad IM 3+ YRS 00:00:00 [facility] TDAP 2014-11-11 Completed [facility] of 00:00:00 [facility] Meningococcal 2014-11-11 Completed [facility] of Oligosaccharide 00:00:00 [place] [facility] (groups A, C, Y and Branc h W-135) conjugate vaccine (MCV4O) Influenza Virus 2014-11-11 Completed [facility]it y of Vaccine Quad IM 3+ YRS 00:00:00 [facility] TDAP 2014-11-11 Completed [facility] of 00:00:00 [facility] Meningococcal 2014-11-11 Completed [facility] Oligosaccharide 00:00:00 [place] [facility] (groups A, C, Y and Branc h W-135) conjugate vaccine (MCV4O) Influenza Virus 2014-11-11 Completed [facility] Quad [facility] 00:00:00 [facility] Meningococcal 2014-11-11 Completed [facility] Oligosaccharide 00:00:00 [place] [facility] (groups A, C, Y and Branc h W-135) conjugate vaccine (MCV4O) Influenza Virus 2014-11-11 Completed Universit y of Vaccine Quad IM 3+ YRS 00:00:00 [facility] TDAP 2014-11-11 Completed [facility] of 00:00:00 [facility] Meningococcal 2014-11-11 Completed [facility] Oligosaccharide 00:00:00 [place] [facility] (groups A, C, Y and Branc h W-135) conjugate vaccine (MCV4O) Influenza Virus 2014-11-11 Completed [facility]it y of Vaccine Quad IM 3+ YRS 00:00:00 [facility] TDAP 2014-11-11 Completed [facility] of 00:00:00 [facility] Meningococcal 2014-11-11 Completed [facility] of Oligosaccharide 00:00:00 [place] [facility] (groups A, C, Y and Branc h W-135) conjugate vaccine (MCV4O) Influenza Virus 2014-11-11 Completed [facility]it y of Vaccine Quad IM 3+ YRS 00:00:00 [facility] TDAP 2014-11-11 Completed [facility] of 00:00:00 [facility] Meningococcal 2014-11-11 Completed [facility] Oligosaccharide 00:00:00 [place] [facility] (groups A, C, Y and Branc h W-135) conjugate vaccine (MCV4O) Influenza Virus 2014-11-11 Completed [facility]it y of Vaccine Quad IM 3+ YRS 00:00:00 [facility] TDAP 2014-11-11 Completed [facility] of 00:00:00 [facility] Meningococcal 2014-11-11 Completed [facility] Oligosaccharide 00:00:00 [place] [facility] (groups A, C, Y and Branc h W-135) conjugate vaccine (MCV4O) Influenza Virus 2014-11-11 Completed [facility]it y of Vaccine Quad IM 3+ YRS 00:00:00 [facility] TDAP 2014-11-11 Completed [facility] of 00:00:00 [facility] Meningococcal 2014-11-11 Completed [facility] Oligosaccharide 00:00:00 [place] [facility] (groups A, C, Y and Branc h W-135) conjugate vaccine (MCV4O) Influenza Virus 2014-11-11 Completed [facility]it y of Vaccine Quad IM 3+ YRS 00:00:00 [facility] TDAP 2014-11-11 Completed [facility] of 00:00:00 [facility] Meningococcal 2014-11-11 Completed [facility] Oligosaccharide 00:00:00 [place] [facility] (groups A, C, Y and Branc h W-135) conjugate vaccine (MCV4O) Influenza Virus 2014-11-11 Completed [facility]it y of Vaccine Quad IM 3+ YRS 00:00:00 [facility] Tdap 2014-11-11 Completed [facility] of 00:00:00 [facility] Meningococcal 2014-11-11 Completed [facility]accharide 00:00:00 [place] [facility] (groups A, C, Y and Branc h W-135) conjugate vaccine (MCV4O) Influenza Virus 2014-11-11 Completed [facility]it y of Vaccine Quad IM 3+ YRS 00:00:00 [facility] TDAP 2014-11-11 Completed [facility] of 00:00:00 [facility] Meningococcal 2014-11-11 Completed [facility] Oligosaccharide 00:00:00 [place] [facility] (groups A, C, Y and Branc h W-135) conjugate vaccine (MCV4O) Influenza Virus 2014-11-11 Completed [facility]it y of Vaccine Quad IM 3+ YRS 00:00:00 [facility] TDAP 2014-11-11 Completed [facility] of 00:00:00 [facility] Meningococcal 2014-11-11 Completed [facility] O[facility]osaccharide 00:00:00 [place] [facility] (groups A, C, Y and Branc h W-135) conjugate vaccine (MCV4O) Influenza Virus 2014-11-11 Completed [facility]it y of Vaccine Quad IM 3+ YRS 00:00:00 [facility] TDAP 2014-11-11 Completed [facility] of 00:00:00 [facility] Meningococcal 2014-11-11 Completed [facility]accharide 00:00:00 [place] [facility] (groups A, C, Y and Branc h W-135) conjugate vaccine (MCV4O) Influenza Virus 2014-11-11 Completed [facility]it y of Vaccine Quad IM 3+ YRS 00:00:00 [facility] TDAP 2014-11-11 Completed [facility] of 00:00:00 [facility] Meningococcal 2014-11-11 Completed [facility]accharide 00:00:00 [place] [facility] (groups A, C, Y and Branc h W-135) conjugate vaccine (MCV4O) Influenza Virus 2014-11-11 Completed [facility]it y of Vaccine Quad IM 3+ YRS 00:00:00 [facility] TDAP 2014-11-11 Completed [facility] of 00:00:00 [facility] Meningococcal 2014-11-11 Completed [facility] O[facility]osaccharide 00:00:00 [place] [facility] (groups A, C, Y and Branc h W-135) conjugate vaccine (MCV4O) Influenza Virus 2014-11-11 Completed [facility]it y of Vaccine Quad IM 3+ YRS 00:00:00 [facility] TDAP 2014-11-11 Completed [facility] of 00:00:00 [facility] Meningococcal 2014-11-11 Completed [facility] O[facility]osaccharide 00:00:00 [place] [facility] (groups A, C, Y and Branc h W-135) conjugate vaccine (MCV4O) Influenza Virus 2014-11-11 Completed [facility]it y of Vaccine Quad IM 3+ YRS 00:00:00 [facility] TDAP 2014-11-11 Completed [facility] of 00:00:00 [facility] Meningococcal 2014-11-11 Completed [facility] O[facility]osaccharide 00:00:00 [place] [facility] (groups A, C, Y and Branc h W-135) conjugate vaccine (MCV4O) Influenza Virus 2014-11-11 Completed [facility]it y of Vaccine Quad IM 3+ YRS 00:00:00 [facility] TDAP 2014-11-11 Completed [facility] of 00:00:00 [facility] Meningococcal 2014-11-11 Completed [facility] O[facility]osaccharide 00:00:00 [place] [facility] (groups A, C, Y and Branc h W-135) conjugate vaccine (MCV4O) Influenza Virus 2014-11-11 Completed [facility]it y of Vaccine Quad IM 3+ YRS 00:00:00 [facility] TDAP 2014-11-11 Completed [facility] of 00:00:00 [facility] Meningococcal 2014-11-11 Completed [facility]accharide 00:00:00 [place] [facility] (groups A, C, Y and Branc h W-135) conjugate vaccine (MCV4O) Influenza Virus 2014-11-11 Completed [facility]it y of Vaccine Quad IM 3+ YRS 00:00:00 [facility] Tdap 2014-11-11 Completed [facility] of 00:00:00 [facility] Meningococcal 2014-11-11 Completed [facility]accharide 00:00:00 [place] [facility] (groups A, C, Y and Branc h W-135) conjugate vaccine (MCV4O) TDAP 2014-11-11 Completed [facility] 00:00:00 [facility] Meningococcal 2014-11-11 Completed [facility] Oligosaccharide 00:00:00 [place] [facility] (groups A, C, Y and Branc h W-135) conjugate vaccine (MCV4O) Influenza Virus 2014-11-11 Completed [facility]it y of Vaccine Quad IM 3+ YRS 00:00:00 [facility] Influenza Virus 2014-11-11 Completed [facility]it y of Vaccine Quad IM 3+ YRS 00:00:00 [facility] TDAP 2014-11-11 Completed [facility] of 00:00:00 [facility] Meningococcal 2014-11-11 Completed [facility]accharide 00:00:00 [place] [facility] (groups A, C, Y and Branc h W-135) conjugate vaccine (MCV4O) Influenza Virus 2014-11-11 Completed [facility]it y of Vaccine Quad IM 3+ YRS 00:00:00 [facility] TDAP 2014-11-11 Completed [facility] of 00:00:00 [facility] Meningococcal 2014-11-11 Completed [facility] Olig[facility] 00:00:00 [place] [facility] (groups A, C, Y and Branc h W-135) conjugate vaccine (MCV4O) Influenza Virus 2014-11-11 Completed [facility] Vaccine Quad IM 3+ YRS 00:00:00 [facility] TDAP 2014-11-11 Completed [facility] of 00:00:00 [facility] Meningococcal 2014-11-11 Completed [facility] 00:00:00 [place] [facility] (groups A, C, Y and Branc h W-135) conjugate vaccine (MCV4O) Influenza Virus 2014-11-11 Completed [facility] Vaccine Quad IM 3+ YRS 00:00:00 [facility] TDAP 2014-11-11 Completed [facility] 00:00:00 [facility] Meningococcal 2014-11-11 Completed [facility] Oligosaccharide 00:00:00 [place] [facility] (groups A, C, Y and Branc h W-135) conjugate vaccine (MCV4O) Influenza Virus 2014-11-11 Completed [facility] Vaccine Quad IM 3+ YRS 00:00:00 [facility] Tdap 2014-11-11 Completed [facility] 00:00:00 [facility] Meningococcal 2014-11-11 Completed [facility] 00:00:00 [place] [facility] (groups A, C, Y and Branc h W-135) conjugate vaccine (MCV4O) TDAP 2014-11-11 Completed [facility] 00:00:00 [facility] Meningococcal 2014-11-11 Completed [facility] O[facility]accharide 00:00:00 [place] [facility] (groups A, C, Y and Branc h W-135) conjugate vaccine (MCV4O) Influenza Virus 2014-11-11 Completed [facility] Vaccine Quad IM 3+ YRS 00:00:00 [facility] Influenza Virus 2014-11-11 Completed [facility] of Vaccine Quad IM 3+ YRS 00:00:00 [facility] TDAP 2014-11-11 Completed [facility] 00:00:00 [facility] Meningococcal 2014-11-11 Completed [facility] 00:00:00 [place] [facility] (groups A, C, Y and Branc h W-135) conjugate vaccine (MCV4O) Influenza Virus 2014-11-11 Completed [facility] of Vaccine Quad IM 3+ YRS 00:00:00 [facility] TDAP 2014-11-11 Completed [facility] 00:00:00 [facility] Meningococcal 2014-11-11 Completed [facility] 00:00:00 [place] [facility] (groups A, C, Y and Branc h W-135) conjugate vaccine (MCV4O) Influenza Virus 2014-11-11 Completed [facility] Vaccine Quad IM 3+ YRS 00:00:00 [facility] TDAP 2014-11-11 Completed [facility] 00:00:00 [facility] Meningococcal 2014-11-11 Completed [facility]accharide 00:00:00 [place] [facility] (groups A, C, Y and Branc h W-135) conjugate vaccine (MCV4O) Influenza Virus 2014-11-11 Completed [facility] Vaccine Quad IM 3+ YRS 00:00:00 [facility] TDAP 2014-11-11 Completed [facility] of 00:00:00 [facility] Meningococcal 2014-11-11 Completed [facility] Oligosaccharide 00:00:00 [place] [facility] (groups A, C, Y and Branc h W-135) conjugate vaccine (MCV4O) Influenza Virus 2014-11-11 Completed [facility] of Vaccine Quad IM 3+ YRS 00:00:00 [facility] TDAP 2014-11-11 Completed [facility] of 00:00:00 [facility] Meningococcal 2014-11-11 Completed [facility] Oligosaccharide 00:00:00 [place] [facility] (groups A, C, Y and Branc h W-135) conjugate vaccine (MCV4O) Influenza Virus 2014-11-11 Completed [facility] of Vaccine Quad IM 3+ YRS 00:00:00 [facility] TDAP 2014-11-11 Completed [facility] of 00:00:00 [facility] Meningococcal 2014-11-11 Completed [facility] 00:00:00 [place] [facility] (groups A, C, Y and Branc h W-135) conjugate vaccine (MCV4O) Influenza Virus 2014-11-11 Completed [facility] Vaccine Quad IM 3+ YRS 00:00:00 [facility] TDAP 2014-11-11 Completed [facility] of 00:00:00 [facility] Meningococcal 2014-11-11 Completed [facility]accharide 00:00:00 [place] [facility] (groups A, C, Y and Branc h W-135) conjugate vaccine (MCV4O) Influenza Virus 2014-11-11 Completed [facility] of Vaccine Quad IM 3+ YRS 00:00:00 [facility] Tdap 2014-11-11 Completed [facility] of 00:00:00 [facility] Meningococcal 2014-11-11 Completed [facility] O[facility]accharide 00:00:00 [place] [facility] (groups A, C, Y and Branc h W-135) conjugate vaccine (MCV4O) Influenza Virus 2014-11-11 Completed [facility] of Vaccine Quad IM 3+ YRS 00:00:00 [facility] TDAP 2014-11-11 Completed [facility] of 00:00:00 [facility] Meningococcal 2014-11-11 Completed [facility]accharide 00:00:00 [place] [facility] (groups A, C, Y and Branc h W-135) conjugate vaccine (MCV4O) Influenza Virus 2014-11-11 Completed [facility] of Vaccine Quad IM 3+ YRS 00:00:00 [facility] TDAP 2014-11-11 Completed [facility] of 00:00:00 [facility] Meningococcal 2014-11-11 Completed [facility] Oligosaccharide 00:00:00 [place] [facility] (groups A, C, Y and Branc h W-135) conjugate vaccine (MCV4O) Influenza Virus 2014-11-11 Completed [facility] Vaccine Quad IM 3+ YRS 00:00:00 [facility] TDAP 2014-11-11 Completed [facility] 00:00:00 [facility] Meningococcal 2014-11-11 Completed [facility] Oligosaccharide 00:00:00 [place] [facility] (groups A, C, Y and Branc h W-135) conjugate vaccine (MCV4O) Influenza Virus 2014-11-11 Completed [facility] of Vaccine Quad IM 3+ YRS 00:00:00 [facility] TDAP 2014-11-11 Completed [facility] 00:00:00 [facility] Meningococcal 2014-11-11 Completed [facility] Oligosaccharide 00:00:00 [place] [facility] (groups A, C, Y and Branc h W-135) conjugate vaccine (MCV4O) Influenza Virus 2014-11-11 Completed [facility] of Vaccine Quad IM 3+ YRS 00:00:00 [facility] TDAP 2014-11-11 Completed [facility] of 00:00:00 [facility] Meningococcal 2014-11-11 Completed [facility] Olig[facility]accharide 00:00:00 [place] [facility] (groups A, C, Y and Branc h W-135) conjugate vaccine (MCV4O) Influenza Virus 2014-11-11 Completed [facility] Vaccine Quad IM 3+ YRS 00:00:00 [facility] TDAP 2014-11-11 Completed [facility] of 00:00:00 [facility] Meningococcal 2014-11-11 Completed [facility] 00:00:00 [place] [facility] (groups A, C, Y and Branc h W-135) conjugate vaccine (MCV4O) Influenza Virus 2014-11-11 Completed [facility] Vaccine Quad IM 3+ YRS 00:00:00 [facility] TDAP 2014-11-11 Completed [facility] of 00:00:00 [facility] Meningococcal 2014-11-11 Completed [facility] Oligosaccharide 00:00:00 [place] [facility] (groups A, C, Y and Branc h W-135) conjugate vaccine (MCV4O) Influenza Virus 2014-11-11 Completed [facility] of Vaccine Quad IM 3+ YRS 00:00:00 [facility] Tdap 2014-11-11 Completed [facility] of 00:00:00 [facility] Meningococcal 2014-11-11 Completed [facility] Oligosaccharide 00:00:00 [place] [facility] (groups A, C, Y and Branc h W-135) conjugate vaccine (MCV4O) Influenza Virus 2014-11-11 Completed [facility] of Vaccine Quad IM 3+ YRS 00:00:00 [facility] Tdap 2014-11-11 Completed [facility] 00:00:00 [facility] Meningococcal 2014-11-11 Completed [facility] Oligosaccharide 00:00:00 [place] [facility] (groups A, C, Y and Branc h W-135) conjugate vaccine (MCV4O) Influenza Virus 2014-11-11 Completed [facility] of Vaccine Quad IM 3+ YRS 00:00:00 [facility] Tdap 2014-11-11 Completed [facility] of 00:00:00 [facility] Meningococcal 2014-11-11 Completed [facility] Oligosaccharide 00:00:00 [place] [facility] (groups A, C, Y and Branc h W-135) conjugate vaccine (MCV4O) Influenza Virus 2014-11-11 Completed [facility] of Vaccine Quad IM 3+ YRS 00:00:00 [facility] Tdap 2014-11-11 Completed [facility] 00:00:00 [facility] Meningococcal 2014-11-11 Completed [facility] Oligosaccharide 00:00:00 [place] [facility] (groups A, C, Y and Branc h W-135) conjugate vaccine (MCV4O) Influenza Virus 2014-11-11 Completed [facility] of Vaccine Quad IM 3+ YRS 00:00:00 [facility] Tdap 2014-11-11 Completed [facility] 00:00:00 [facility] Meningococcal 2014-11-11 Completed [facility] Oligosaccharide 00:00:00 [place] [facility] (groups A, C, Y and Branc h W-135) conjugate vaccine (MCV4O) Influenza Virus 2014-11-11 Completed [facility] of Vaccine Quad IM 3+ YRS 00:00:00 [facility] Tdap 2014-11-11 Completed [facility] 00:00:00 [facility] Meningococcal 2014-11-11 Completed [facility] O[facility]accharide 00:00:00 [place] [facility] (groups A, C, Y and Branc h W-135) conjugate vaccine (MCV4O) Influenza Virus 2014-11-11 Completed [facility] of Vaccine Quad IM 3+ YRS 00:00:00 [facility] Tdap 2014-11-11 Completed [facility] 00:00:00 [facility] Meningococcal 2014-11-11 Completed [facility] Oligosaccharide 00:00:00 [place] [facility] (groups A, C, Y and Branc h W-135) conjugate vaccine (MCV4O) Influenza Virus 2014-11-11 Completed [facility] of Vaccine Quad IM 3+ YRS 00:00:00 [facility] Tdap 2014-11-11 Completed University 00:00:00 [facility] Meningococcal 2014-11-11 Completed [facility] 00:00:00 [place] [facility] (groups A, C, Y and Branc h W-135) conjugate vaccine (MCV4O) Influenza Virus 2014-11-11 Completed [facility] of Vaccine Quad IM 3+ YRS 00:00:00 [facility] Influenza Virus 2013-08-11 Completed [facility] y of Vaccine (3+ yrs) 00:00:00 [facility] Influenza Virus 2013-08-11 Completed [facility] of Vaccine (3+ yrs) 00:00:00 [facility] Influenza Virus 2013-08-11 Completed [facility] of Vaccine (3+ yrs) 00:00:00 [facility] Influenza Virus 2013-08-11 Completed [facility] of Vaccine (3+ yrs) 00:00:00 [facility] Influenza Virus 2013-08-11 Completed [facility] of Vaccine (3+ yrs) 00:00:00 [facility] Influenza Virus 2013-08-11 Completed [facility] of Vaccine (3+ yrs) 00:00:00 [facility] Influenza Virus 2013-08-11 Completed [facility] Vaccine (3+ yrs) 00:00:00 [facility] Influenza Virus 2013-08-11 Completed [facility] of Vaccine (3+ yrs) 00:00:00 [facility] Influenza Virus 2013-08-11 Completed [facility] Vaccine (3+ yrs) 00:00:00 [facility] Influenza Virus 2013-08-11 Completed [facility] Vaccine (3+ yrs) 00:00:00 [facility] Influenza Virus 2013-08-11 Completed [facility] of Vaccine (3+ yrs) 00:00:00 [facility] Influenza Virus 2013-08-11 Completed [facility] of Vaccine (3+ yrs) 00:00:00 [facility] Influenza Virus 2013-08-11 Completed [facility] Vaccine (3+ yrs) 00:00:00 [facility] Influenza Virus 2013-08-11 Completed [facility] Vaccine (3+ yrs) 00:00:00 [facility] Influenza Virus 2013-08-11 Completed [facility] Vaccine (3+ yrs) 00:00:00 [facility] Influenza Virus 2013-08-11 Completed [facility] Vaccine (3+ yrs) 00:00:00 [facility] Influenza Virus 2013-08-11 Completed [facility] Vaccine (3+ yrs) 00:00:00 [facility] Influenza Virus 2013-08-11 Completed [facility] Vaccine (3+ yrs) 00:00:00 [facility] Influenza Virus 2013-08-11 Completed [facility] Vaccine (3+ yrs) 00:00:00 [facility] Influenza Virus 2013-08-11 Completed [facility] Vaccine (3+ yrs) 00:00:00 [facility] Influenza Virus 2013-08-11 Completed [facility] Vaccine (3+ yrs) 00:00:00 [facility] Influenza Virus 2013-08-11 Completed [facility] of Vaccine (3+ yrs) 00:00:00 [facility] Influenza Virus 2013-08-11 Completed [facility] of Vaccine (3+ yrs) 00:00:00 [facility] Influenza Virus 2013-08-11 Completed [facility] Vaccine (3+ yrs) 00:00:00 [facility] Influenza Virus 2013-08-11 Completed [facility] y of Vaccine (3+ yrs) 00:00:00 [facility] Influenza Virus 2013-08-11 Completed [facility] Vaccine (3+ yrs) 00:00:00 [facility] Influenza Virus 2013-08-11 Completed [facility] Vaccine (3+ yrs) 00:00:00 [facility] Influenza Virus 2013-08-11 Completed [facility] of Vaccine (3+ yrs) 00:00:00 [facility] Influenza Virus 2013-08-11 Completed [facility] Vaccine (3+ yrs) 00:00:00 [facility] Influenza Virus 2013-08-11 Completed [facility] Vaccine (3+ yrs) 00:00:00 [facility] Influenza Virus 2013-08-11 Completed [facility] y of Vaccine (3+ yrs) 00:00:00 [facility] Influenza Virus 2013-08-11 Completed [facility] of Vaccine (3+ yrs) 00:00:00 [facility] Influenza Virus 2013-08-11 Completed [facility] Vaccine (3+ yrs) 00:00:00 [facility] Influenza Virus 2013-08-11 Completed [facility] of Vaccine (3+ yrs) 00:00:00 [facility] Influenza Virus 2013-08-11 Completed [facility] Vaccine (3+ yrs) 00:00:00 [facility] Influenza Virus 2013-08-11 Completed [facility] y [facility] Vaccine (3+ yrs) 00:00:00 [facility] Influenza Virus 2013-08-11 Completed [facility] Vaccine (3+ yrs) 00:00:00 [facility] Influenza Virus 2013-08-11 Completed [facility] Vaccine (3+ yrs) 00:00:00 [facility] Influenza Virus 2013-08-11 Completed [facility] of Vaccine (3+ yrs) 00:00:00 [facility] Influenza Virus 2013-08-11 Completed [facility] y [facility] Vaccine (3+ yrs) 00:00:00 [facility] Influenza Virus 2013-08-11 Completed [facility] y [facility] Vaccine (3+ yrs) 00:00:00 [facility] Influenza Virus 2013-08-11 Completed [facility] y [facility] Vaccine (3+ yrs) 00:00:00 [facility] Influenza Virus 2013-08-11 Completed [facility] y [facility] Vaccine (3+ yrs) 00:00:00 [facility] Influenza Virus 2013-08-11 Completed [facility] y of Vaccine (3+ yrs) 00:00:00 [facility] Influenza Virus 2013-08-11 Completed [facility] Vaccine (3+ yrs) 00:00:00 [facility] Influenza Virus 2013-08-11 Completed [facility] y of Vaccine (3+ yrs) 00:00:00 [facility] Influenza Virus 2013-08-11 Completed [facility] Vaccine (3+ yrs) 00:00:00 [facility] Influenza Virus 2013-08-11 Completed [facility] y of Vaccine (3+ yrs) 00:00:00 [facility] Influenza Virus 2013-08-11 Completed [facility] of Vaccine (3+ yrs) 00:00:00 [facility] Influenza Virus 2013-08-11 Completed [facility] Vaccine (3+ yrs) 00:00:00 [facility] Influenza Virus 2013-08-11 Completed [facility] y [facility] Vaccine (3+ yrs) 00:00:00 [facility] Influenza Virus 2013-08-11 Completed [facility] y of Vaccine (3+ yrs) 00:00:00 [facility] Influenza Virus 2013-08-11 Completed [facility] y of Vaccine (3+ yrs) 00:00:00 [facility] Influenza Virus 2013-08-11 Completed [facility] y of Vaccine (3+ yrs) 00:00:00 [facility] Influenza Virus 2013-08-11 Completed [facility] y of Vaccine (3+ yrs) 00:00:00 [facility] Influenza Virus 2013-08-11 Completed [facility] y [facility] Vaccine (3+ yrs) 00:00:00 [facility] Influenza Virus 2013-08-11 Completed [facility] y [facility] Vaccine (3+ yrs) 00:00:00 [facility] Influenza Virus 2013-08-11 Completed [facility] Vaccine (3+ yrs) 00:00:00 [facility] Influenza Virus 2013-08-11 Completed [facility] y of Vaccine (3+ yrs) 00:00:00 [facility] Influenza Virus 2013-08-11 Completed [facility] y [facility] Vaccine (3+ yrs) 00:00:00 [facility] Influenza Virus 2013-08-11 Completed [facility] Vaccine (3+ yrs) 00:00:00 [facility] Influenza Virus 2013-08-11 Completed [facility] y [facility] Vaccine (3+ yrs) 00:00:00 [facility] Influenza Virus 2013-08-11 Completed [facility] y [facility] Vaccine (3+ yrs) 00:00:00 [facility] Influenza Virus 2013-08-11 Completed [facility] y of Vaccine (3+ yrs) 00:00:00 [facility] Influenza Virus 2013-08-11 Completed [facility] y of Vaccine (3+ yrs) 00:00:00 [facility] Influenza Virus 2013-08-11 Completed [facility] y [facility] Vaccine (3+ yrs) 00:00:00 [facility] Influenza Virus 2013-08-11 Completed [facility] y of Vaccine (3+ yrs) 00:00:00 [facility] Influenza Virus 2013-08-11 Completed [facility] Vaccine (3+ yrs) 00:00:00 [facility] Influenza Virus 2013-08-11 Completed [facility] Vaccine (3+ yrs) 00:00:00 [facility] Influenza Virus 2013-08-11 Completed [facility] y of Vaccine (3+ yrs) 00:00:00 [facility] Influenza Virus 2013-08-11 Completed [facility] y [facility] Vaccine (3+ yrs) 00:00:00 [facility] Influenza Virus 2013-08-11 Completed [facility] Vaccine (3+ yrs) 00:00:00 [facility] Influenza Virus 2013-08-11 Completed [facility] y of Vaccine (3+ yrs) 00:00:00 [facility] Influenza Virus 2013-08-11 Completed [facility] y of Vaccine (3+ yrs) 00:00:00 [facility] Influenza Virus 2013-08-11 Completed [facility] y [facility] Vaccine (3+ yrs) 00:00:00 [facility] Influenza Virus 2013-08-11 Completed [facility] y [facility] Vaccine (3+ yrs) 00:00:00 [facility] Influenza Virus 2013-08-11 Completed [facility] y of Vaccine (3+ yrs) 00:00:00 [facility] Influenza Virus 2013-08-11 Completed [facility] y of Vaccine (3+ yrs) 00:00:00 [facility] Influenza Virus 2013-08-11 Completed [facility] y of Vaccine (3+ yrs) 00:00:00 [facility] Influenza Virus 2013-08-11 Completed [facility] y of Vaccine (3+ yrs) 00:00:00 [facility] Influenza Virus 2013-08-11 Completed [facility] y [facility] Vaccine (3+ yrs) 00:00:00 [facility] Influenza Virus 2013-08-11 Completed [facility] y [facility] Vaccine (3+ yrs) 00:00:00 [facility] Influenza Virus 2013-08-11 Completed [facility] y of Vaccine (3+ yrs) 00:00:00 [facility] Influenza Virus 2013-08-11 Completed [facility] y of Vaccine (3+ yrs) 00:00:00 [facility] Influenza Virus 2013-08-11 Completed [facility] y of Vaccine (3+ yrs) 00:00:00 [facility] Influenza Virus 2013-08-11 Completed [facility] y of Vaccine (3+ yrs) 00:00:00 [facility] Influenza Virus 2013-08-11 Completed [facility] y of Vaccine (3+ yrs) 00:00:00 [facility] Influenza Virus 2013-08-11 Completed [facility] y of Vaccine (3+ yrs) 00:00:00 [facility] Influenza Virus 2013-08-11 Completed [facility] y of Vaccine (3+ yrs) 00:00:00 [facility] Varicella 2012-12-05 Completed University of (varivax)(chicken [...] of Vaccine 00:00:00 [facility] Influenza Virus 2012-10-30 Completed [facility]it y of Vaccine 00:00:00 [facility] Influenza Virus 2012-10-30 Completed [facility] y of Vaccine 00:00:00 [facility] Influenza Virus 2012-10-30 Completed [facility] y of Vaccine 00:00:00 [facility] Influenza Virus 2012-10-30 Completed [facility] y of Vaccine 00:00:00 [facility] Influenza Virus 2012-10-30 Completed [facility] y of Vaccine 00:00:00 [facility] Influenza Virus 2012-10-30 Completed [facility] y of Vaccine 00:00:00 [facility] Influenza Virus 2012-10-30 Completed [facility] y of Vaccine 00:00:00 [facility] Influenza Virus 2012-10-30 Completed [facility] y of Vaccine 00:00:00 [facility] Influenza Virus 2012-10-30 Completed [facility] y of Vaccine 00:00:00 [facility] Influenza Virus 2012-10-30 Completed [facility] y of Vaccine 00:00:00 [facility] Influenza Virus 2012-10-30 Completed [facility] y of Vaccine 00:00:00 [facility] Influenza Virus 2012-10-30 Completed [facility] y of Vaccine 00:00:00 [facility] Influenza Virus 2012-10-30 Completed [facility] y of Vaccine 00:00:00 [facility] Influenza Virus 2012-10-30 Completed [facility] y of Vaccine 00:00:00 [facility] Influenza Virus 2012-10-30 Completed [facility] y of Vaccine 00:00:00 [facility] Influenza Virus 2012-10-30 Completed [facility] y [facility] Vaccine 00:00:00 [facility] Influenza Virus 2012-10-30 Completed [facility] of Vaccine 00:00:00 [facility] Influenza Virus 2012-10-30 Completed [facility] y [facility] Vaccine 00:00:00 [facility] Influenza Virus 2012-10-30 Completed [facility] y [facility] Vaccine 00:00:00 [facility] Influenza Virus 2012-10-30 Completed [facility] y [facility] Vaccine 00:00:00 [facility] Influenza Virus 2012-10-30 Completed [facility] y [facility] Vaccine 00:00:00 [facility] Influenza Virus 2012-10-30 Completed [facility] Vaccine 00:00:00 [facility] Influenza Virus 2012-10-30 Completed [facility] Vaccine 00:00:00 [facility] Influenza Virus 2012-10-30 Completed [facility] y [facility] Vaccine 00:00:00 [facility] Influenza Virus 2012-10-30 Completed [facility] Vaccine 00:00:00 [facility] Influenza Virus 2012-10-30 Completed [facility] Vaccine 00:00:00 [facility] Influenza Virus 2012-10-30 Completed [facility] y [facility] Vaccine 00:00:00 [facility] Influenza Virus 2012-10-30 Completed [facility] Vaccine 00:00:00 [facility] Influenza Virus 2012-10-30 Completed [facility] Vaccine 00:00:00 [facility] Influenza Virus 2012-10-30 Completed [facility] y [facility] Vaccine 00:00:00 [facility] Influenza Virus 2012-10-30 Completed [facility] Vaccine 00:00:00 [facility] Influenza Virus 2012-10-30 Completed [facility] Vaccine 00:00:00 [facility] Influenza Virus 2012-10-30 Completed [facility] y [facility] Vaccine 00:00:00 [facility] Influenza Virus 2012-10-30 Completed [facility] y [facility] Vaccine 00:00:00 [facility] Influenza Virus 2012-10-30 Completed [facility] y [facility] Vaccine 00:00:00 [facility] Influenza Virus 2012-10-30 Completed [facility]ine 00:[facility] [facility] 2012-10-30 Com[facility]00 [facility] Influenza Virus 2012-10-30 Completed [facility] 00[facility]00:00 [facility] Influenza Virus 2012-10-30 Completed [facility] 00:00:00 [facility] Influenza Virus 2012-10-30 Completed [facility] 00:00:00 [facility] Influenza Virus 2012-10-30 Completed [facility] 00:00:00 [facility] Influenza Virus 2012-10-30 Completed [facility] 00:00:00 [facility] Influenza Virus 2012-10-30 Completed [facility] 00:00:00 [facility] Influenza Virus 2012-10-30 Completed [facility] 00:00:00 [facility] Influenza Virus 2012-10-30 Completed [facility] 00:00:00 [facility] Influenza Virus 2012-10-30 Completed [facility] 00:00:00 [facility] Influenza Virus 2012-10-30 Completed [facility] 00:00:00 [facility] Influenza Virus 2012-10-30 Completed [facility] 00:00:00 [facility] Influenza Virus 2012-10-30 Completed [facility] 00:00:00 [facility] Influenza Virus 2012-10-30 Completed [facility] 00:00:00 [facility] Influenza Virus 2012-10-30 Completed [facility] 00:00:00 [facility] Influenza Virus 2012-10-30 Completed [facility] 00:00:00 [facility] Influenza Virus 2012-10-30 Completed [facility]ine 00:00:00 [facility] Influenza Virus 2012-10-30 Completed [facility]ine 00:00:00 [facility] Influenza Virus 2012-10-30 Completed [facility] 00:00:00 [facility] Influenza Virus 2012-10-30 Completed [facility] 00:00:00 [facility] Influenza Virus 2012-10-30 Completed [facility] 00:00:00 [facility] Influenza Virus 2012-10-30 Completed [facility] 00:00:00 [facility] Influenza Virus 2012-10-30 Completed [facility] 00:00:00 [facility] Influenza Virus 2012-10-30 Completed [facility] 00:00:00 [facility] Influenza Virus 2012-10-30 Completed [facility] 00:00:00 [facility] Influenza Virus 2012-10-30 Completed [facility] 00:00:00 [facility] Influenza Virus 2012-10-30 Completed [facility] 00:00:00 [facility] Influenza Virus 2012-10-30 Completed [facility] 00:00:00 [facility] Influenza Virus 2012-10-30 Completed [facility] 00:00:00 [facility] Influenza Virus 2012-10-30 Completed [facility] 00:00:00 [facility] Influenza Virus 2012-10-30 Completed [facility] 00:00:00 [facility] Influenza Virus 2012-10-30 Completed [facility] 00:00:00 [facility] Influenza Virus 2012-10-30 Completed [facility] 00:00:00 [facility] Influenza Virus 2012-10-30 Completed [facility] 00:00:00 [facility] Influenza Virus 2012-10-30 Completed [facility] 00:00:00 [facility] Influenza Virus 2012-10-30 Completed [facility] 00:00:00 [facility] Influenza Virus 2012-10-30 Completed [facility] 00:00:00 [facility] Influenza Virus 2012-10-30 Completed [facility] 00:00:00 [facility] Influenza Virus 2012-10-30 Completed [facility] 00:00:00 [facility] Influenza Virus 2012-10-30 Completed [facility] 00:00:00 [facility] Influenza Virus 2012-10-30 Completed [facility] 00:00:00 [facility] Influenza Virus 2012-10-30 Completed [facility] 00:00:00 [facility] Influenza Virus 2012-10-30 Completed [facility] 00:00:00 [facility] Influenza Virus 2012-10-30 Completed [facility] 00:00:00 [facility] Influenza Virus 2012-10-30 Completed [facility]ine 00:00:00 [facility] Influenza Virus 2012-10-30 Completed [facility] 00:00:00 [facility] Influenza Virus 2012-10-30 Completed [facility] 00:00:00 [facility] Influenza Virus 2012-10-30 Completed [facility] 00:00:00 [facility] Influenza Virus 2012-10-30 Completed [facility] 00:00:00 [facility] Influenza Virus 2012-10-30 Completed [facility] 00:00:00 [facility] Influenza Virus 2012-10-30 Completed [facility] 00:00:00 [facility] Influenza Virus 2012-10-30 Completed [facility] 00:00:00 [facility] Influenza Virus 2011-08-22 Completed [facility] 00:00:00 [facility] Influenza Virus 2011-08-22 Completed [facility] 00:00:00 [facility] Influenza Virus 2011-08-22 Completed [facility] 00:00:00 [facility] Influenza Virus 2011-08-22 Completed [facility] 00:00:00 [facility] Influenza Virus 2011-08-22 Completed [facility] 00:00:00 [facility] Influenza Virus 2011-08-22 Completed [facility] 00:00:00 [facility] Influenza Virus 2011-08-22 Completed [facility] 00:00:00 [facility] Influenza Virus 2011-08-22 Completed [facility] 00:00:00 [facility] Influenza Virus 2011-08-22 Completed [facility] 00:00:00 [facility] Influenza Virus 2011-08-22 Completed [facility] 00:00:00 [facility] Influenza Virus 2011-08-22 Completed [facility] 00:00:00 [facility] Influenza Virus 2011-08-22 Completed [facility] 00:00:00 [facility] Influenza Virus 2011-08-22 Completed [facility] 00:00:00 [facility] Influenza Virus 2011-08-22 Completed [facility] 00:00:00 [facility] Influenza Virus 2011-08-22 Completed [facility]ine 00:00:00 [facility] Influenza Virus 2011-08-22 Completed [facility]ine 00:00:00 [facility] Influenza Virus 2011-08-22 Completed [facility] 00:00:00 [facility] Influenza Virus 2011-08-22 Completed [facility] 00:00:00 [facility] Influenza Virus 2011-08-22 Completed [facility] 00:00:00 [facility] Influenza Virus 2011-08-22 Completed [facility] 00:00:00 [facility] Influenza Virus 2011-08-22 Completed [facility] 00:00:00 [facility] Influenza Virus 2011-08-22 Completed [facility]ine 00:00:00 [facility] Influenza Virus 2011-08-22 Completed [facility]ine 00:00:00 [facility] Influenza Virus 2011-08-22 Completed [facility]ine 00:00:00 [facility] Influenza Virus 2011-08-22 Completed [facility]ine 00:00:00 [facility] Influenza Virus 2011-08-22 Completed [facility]ine 00:00:00 [facility] Influenza Virus 2011-08-22 Completed [facility] 00:00:00 [facility] Influenza Virus 2011-08-22 Completed [facility] 00:00:00 [facility] Influenza Virus 2011-08-22 Completed [facility]ine 00:00:00 [facility] Influenza Virus 2011-08-22 Completed [facility]ine 00:00:00 [facility] Influenza Virus 2011-08-22 Completed [facility]ine 00:00:00 [facility] Influenza Virus 2011-08-22 Completed [facility] 00:00:00 [facility] Influenza Virus 2011-08-22 Completed [facility] 00:00:00 [facility] Influenza Virus 2011-08-22 Completed [facility] 00:00:00 [facility] Influenza Virus 2011-08-22 Completed [facility] 00:00:00 [facility] Influenza Virus 2011-08-22 Completed [facility]ine 00:00:00 [facility] Influenza Virus 2011-08-22 Completed [facility]ine 00:00:00 [facility] Influenza Virus 2011-08-22 Completed [facility] Vaccine 00:00:00 [facility] Influenza Virus 2011-08-22 Completed [facility]ine 00:00:00 [facility] Influenza Virus 2011-08-22 Completed [facility] 00:00:00 [facility] Influenza Virus 2011-08-22 Completed [facility] 00:00:00 [facility] Influenza Virus 2011-08-22 Completed [facility]ine 00:00:00 [facility] Influenza Virus 2011-08-22 Completed [facility] 00:00:00 [facility] Influenza Virus 2011-08-22 Completed [facility]ine 00:00:00 [facility] Influenza Virus 2011-08-22 Completed [facility]ine 00:00:00 [facility] Influenza Virus 2011-08-22 Completed [facility]ine 00:00:00 [facility] Influenza Virus 2011-08-22 Completed [facility] 00:00:00 [facility] Influenza Virus 2011-08-22 Completed [facility] 00[facility]00:00 [facility] Influenza Virus 2011-08-22 Completed [facility]ine 00:00:00 [facility] Influenza Virus 2011-08-22 Completed [facility]ine 00:00:00 [facility] Influenza Virus 2011-08-22 Completed [facility]ine 00:00:00 [facility] Influenza Virus 2011-08-22 Completed [facility]ine 00:00:00 [facility] Influenza Virus 2011-08-22 Completed [facility]ine 00:00:00 [facility] Influenza Virus 2011-08-22 Completed [facility]ine 00:00:00 [facility] Influenza Virus 2011-08-22 Completed [facility] Vaccine 00:00:00 [facility] Influenza Virus 2011-08-22 Completed [facility]ine 00:00:00 [facility] Influenza Virus 2011-08-22 Completed [facility]ine 00:00:00 [facility] Influenza Virus 2011-08-22 Completed [facility] Vaccine 00:00:00 [facility] Influenza Virus 2011-08-22 Completed [facility]ine 00:00:00 [facility] Influenza Virus 2011-08-22 Completed [facility] Vaccine 00:00:00 [facility] Influenza Virus 2011-08-22 Completed [facility]ine 00:00:00 [facility] Influenza Virus 2011-08-22 Completed [facility] Vaccine 00:00:00 [facility] Influenza Virus 2011-08-22 Completed [facility]ine 00:00:00 [facility] Influenza Virus 2011-08-22 Completed [facility] Vaccine 00:00:00 [facility] Influenza Virus 2011-08-22 Completed [facility]ine 00:00:00 [facility] Influenza Virus 2011-08-22 Completed [facility]ine 00:00:00 [facility] Influenza Virus 2011-08-22 Completed [facility] 00:00:00 [facility] Influenza Virus 2011-08-22 Completed [facility] Vaccine 00:00:00 [facility] Influenza Virus 2011-08-22 Completed [facility]ine 00:00:00 [facility] Influenza Virus 2011-08-22 Completed [facility]ine 00:00:00 [facility] Influenza Virus 2011-08-22 Completed [facility]ine 00:00:00 [facility] Influenza Virus 2011-08-22 Completed [facility]ine 00:00:00 [facility] Influenza Virus 2011-08-22 Completed [facility] 00:00:00 [facility] Influenza Virus 2011-08-22 Completed [facility]ine 00:00:00 [facility] Influenza Virus 2011-08-22 Completed [facility] 00:00:00 [facility] Influenza Virus 2011-08-22 Completed [facility]ine 00:00:00 [facility] Influenza Virus 2011-08-22 Completed [facility]ine 00:00:00 [facility] Influenza Virus 2011-08-22 Completed [facility] 00:00:00 [facility] Influenza Virus 2011-08-22 Completed [facility] 00:00:00 [facility] Influenza Virus 2011-08-22 Completed [facility] 00:00:00 [facility] Influenza Virus 2011-08-22 Completed [facility] 00:00:00 [facility] Influenza Virus 2011-08-22 Completed [facility] 00:00:00 [facility] Influenza Virus 2011-08-22 Completed [facility] 00:00:00 [facility] Influenza Virus 2011-08-22 Completed [facility] 00:00:00 [facility] Influenza Virus 2011-08-22 Completed [facility] 00:00:00 [facility] Influenza Virus 2011-08-22 Completed [facility]ine 00:00:00 [facility] Influenza Virus 2011-08-22 Completed [facility] 00:00:00 [facility] Influenza Virus 2011-08-22 Completed [facility] 00:00:00 [facility] Influenza Virus 2011-08-22 Completed [facility]ine 00:00:00 [facility] Influenza Virus 2010-08-26 Completed [facility]ine 00:00:00 [facility] Influenza Virus 2010-08-26 Completed [facility]ine 00:00:00 [facility] Influenza Virus 2010-08-26 Completed [facility]ine 00:00:00 [facility] Influenza Virus 2010-08-26 Completed [facility]ine 00:00:00 [facility] Influenza Virus 2010-08-26 Completed [facility]ine 00:00:00 [facility] Influenza Virus 2010-08-26 Completed [facility] 00:00:00 [facility] Influenza Virus 2010-08-26 Completed [facility] 00:00:00 [facility] Influenza Virus 2010-08-26 Completed [facility]ine 00:00:00 [facility] Influenza Virus 2010-08-26 Completed [facility] 00:00:00 [facility] Influenza Virus 2010-08-26 Completed [facility] 00:00:00 [facility] Influenza Virus 2010-08-26 Completed [facility]ine 00:00:00 [facility] Influenza Virus 2010-08-26 Completed [facility] 00:00:00 [facility] Influenza Virus 2010-08-26 Completed [facility] 00:00:00 [facility] Influenza Virus 2010-08-26 Completed [facility] 00:00:00 [facility] Influenza Virus 2010-08-26 Completed [facility] 00:00:00 [facility] Influenza Virus 2010-08-26 Completed [facility] 00:00:00 [facility] Influenza Virus 2010-08-26 Completed [facility]ine 00:00:00 [facility] Influenza Virus 2010-08-26 Completed [facility]ine 00:00:00 [facility] Influenza Virus 2010-08-26 Completed [facility] 00:00:00 [facility] Influenza Virus 2010-08-26 Completed [facility]ine 00:00:00 [facility] Influenza Virus 2010-08-26 Completed [facility]ine 00:00:00 [facility] Influenza Virus 2010-08-26 Completed [facility]ine 00:00:00 [facility] Influenza Virus 2010-08-26 Completed [facility]ine 00:00:00 [facility] Influenza Virus 2010-08-26 Completed [facility]ine 00:00:00 [facility] Influenza Virus 2010-08-26 Completed [facility]ine 00:00:00 [facility] Influenza Virus 2010-08-26 Completed [facility] Vaccine 00:00:00 [facility] Influenza Virus 2010-08-26 Completed [facility]ine 00:00:00 [facility] Influenza Virus 2010-08-26 Completed [facility] Vaccine 00:00:00 [facility] Influenza Virus 2010-08-26 Completed [facility]ine 00:00:00 [facility] Influenza Virus 2010-08-26 Completed [facility]ine 00:00:00 [facility] Influenza Virus 2010-08-26 Completed [facility] Vaccine 00:00:00 [facility] Influenza Virus 2010-08-26 Completed [facility]ine 00:00:00 [facility] Influenza Virus 2010-08-26 Completed [facility]ine 00:00:00 [facility] Influenza Virus 2010-08-26 Completed [facility]ine 00:00:00 [facility] Influenza Virus 2010-08-26 Completed [facility]ine 00:00:00 [facility] Influenza Virus 2010-08-26 Completed [facility]ine 00:00:00 [facility] Influenza Virus 2010-08-26 Completed [facility]ine 00:00:00 [facility] Influenza Virus 2010-08-26 Completed [facility]ine 00:00:00 [facility] Influenza Virus 2010-08-26 Completed [facility]ine 00:00:00 [facility] Influenza Virus 2010-08-26 Completed [facility]ine 00:00:00 [facility] Influenza Virus 2010-08-26 Completed [facility]ine 00:00:00 [facility] Influenza Virus 2010-08-26 Completed [facility]ine 00:00:00 [facility] Influenza Virus 2010-08-26 Completed [facility]ine 00:00:00 [facility] Influenza Virus 2010-08-26 Completed [facility]ine 00:00:00 [facility] Influenza Virus 2010-08-26 Completed [facility]ine 00:00:00 [facility] Influenza Virus 2010-08-26 Completed [facility]ine 00:00:00 [facility] Influenza Virus 2010-08-26 Completed [facility]ine 00:00:00 [facility] Influenza Virus 2010-08-26 Completed [facility] 00:00:00 [facility] Influenza Virus 2010-08-26 Completed [facility]ine 00:00:00 [facility] Influenza Virus 2010-08-26 Completed [facility] 00:00:00 [facility] Influenza Virus 2010-08-26 Completed [facility]ine 00:00:00 [facility] Influenza Virus 2010-08-26 Completed [facility]ine 00:00:00 [facility] Influenza Virus 2010-08-26 Completed [facility] 00:00:00 [facility] Influenza Virus 2010-08-26 Completed [facility]ine 00:00:00 [facility] Influenza Virus 2010-08-26 Completed [facility]ine 00:00:00 [facility] Influenza Virus 2010-08-26 Completed [facility]ine 00:00:00 [facility] Influenza Virus 2010-08-26 Completed [facility]ine 00:00:00 [facility] Influenza Virus 2010-08-26 Completed [facility]ine 00:00:00 [facility] Influenza Virus 2010-08-26 Completed [facility]ine 00:00:00 [facility] Influenza Virus 2010-08-26 Completed [facility]ine 00:00:00 [facility] Influenza Virus 2010-08-26 Completed [facility]ine 00:00:00 [facility] Influenza Virus 2010-08-26 Completed [facility]ine 00:00:00 [facility] Influenza Virus 2010-08-26 Completed [facility]ine 00:00:00 [facility] Influenza Virus 2010-08-26 Completed [facility]ine 00:00:00 [facility] Influenza Virus 2010-08-26 Completed [facility]ine 00:00:00 [facility] Influenza Virus 2010-08-26 Completed [facility]ine 00:00:00 [facility] Influenza Virus 2010-08-26 Completed [facility]ine 00:00:00 [facility] Influenza Virus 2010-08-26 Completed [facility]ine 00:00:00 [facility] Influenza Virus 2010-08-26 Completed [facility]ine 00:00:00 [facility] Influenza Virus 2010-08-26 Completed [facility]ine 00:00:00 [facility] Influenza Virus 2010-08-26 Completed [facility]ine 00:00:00 [facility] Influenza Virus 2010-08-26 Completed [facility]ine 00:00:00 [facility] Influenza Virus 2010-08-26 Completed [facility] 00:00:00 [facility] Influenza Virus 2010-08-26 Completed [facility]ine 00:00:00 [facility] Influenza Virus 2010-08-26 Completed [facility]ine 00:00:00 [facility] Influenza Virus 2010-08-26 Completed [facility] 00:00:00 [facility] Influenza Virus 2010-08-26 Completed [facility] 00:00:00 [facility] Influenza Virus 2010-08-26 Completed [facility] 00:00:00 [facility] Influenza Virus 2010-08-26 Completed [facility] 00:00:00 [facility] Influenza Virus 2010-08-26 Completed [facility] 00:00:00 [facility] Influenza Virus 2010-08-26 Completed [facility] 00:00:00 [facility] Influenza Virus 2010-08-26 Completed [facility] 00:00:00 [facility] Influenza Virus 2010-08-26 Completed [facility] [facility] Influenza Virus 2010-08-26 Completed [facility] Vaccine 00:00:00 [facility] Influenza Virus 2010-08-26 Completed [facility] Vaccine 00:00:00 [facility] Influenza Virus 2010-08-26 Completed [facility] Vaccine 00:00:00 [facility] Influenza Virus 2010-08-26 Completed [facility] Vaccine 00:00:00 [facility] Influenza Virus 2010-08-26 Completed [facility] Vaccine 00:00:00 [facility] Influenza Virus 2010-08-26 Completed [facility] Vaccine 00:00:00 [facility] H1n1 Vaccine 2009-10-26 Completed [facility] 00:00:00 [facility] H1n1 Vaccine 2009-10-26 Completed [facility] 00:00:00 [facility] H1n1 Vaccine 2009-10-26 Completed [facility] 00:00:00 [facility] H1n1 Vaccine 2009-10-26 Completed [facility] 00:00:00 [facility] H1n1 Vaccine 2009-10-26 Completed [facility] 00:00:00 [facility] H1n1 Vaccine 2009-10-26 Completed [facility] 00:00:00 [facility] H1n1 Vaccine 2009-10-26 Completed [facility] 00:00:00 [facility] H1n1 Vaccine 2009-10-26 Completed [facility] 00:00:00 [facility] H1n1 Vaccine 2009-10-26 Completed [facility] 00:00:00 [facility] H1n1 Vaccine 2009-10-26 Completed [facility] 00:00:00 [facility] H1n1 Vaccine 2009-10-26 Completed [facility] 00:00:00 [facility] H1n1 Vaccine 2009-10-26 Completed [facility] 00:00:00 [facility] H1n1 Vaccine 2009-10-26 Completed [...] Vaccine 2009-10-26 Completed [facility] 00:00:00 [facility] H1n1 Vaccine 2009-10-26 Completed [facility] 00:00:00 [facility] H1n1 Vaccine 2009-10-26 Completed [facility] 00:00:00 [facility] H1n1 Vaccine 2009-10-26 Completed [facility] 00:00:00 [facility] H1n1 Vaccine 2009-10-26 Completed [facility] [...] o f 00:00:00 [facility] H1n1 Vaccine 2009-09-15 Completed [facility] 00:00:00 [facility] H1n1 Vaccine 2009-09-15 Completed [facility] 00:00:00 [facility] H1n1 Vaccine 2009-09-15 Completed [facility] 00:00:00 [facility] H1n1 Vaccine 2009-09-15 Completed [facility] 00:00:00 [facility] H1n1 Vaccine 2009-09-15 Completed [facility] 00:00:00 [facility] H1n1 Vaccine 2009-09-15 Completed [facility] 00:00:00 [facility] H1n1 Vaccine 2009-09-15 Completed [facility] 00:00:00 [facility] MMR 2007-07-04 Completed [facility] 00:00:00 [facility] Polio (IPV/OPV) 2007-07-04 Completed [facility] 00:00:00 [facility] MMR 2007-07-04 Completed [facility] 00:00:00 [facility] Polio (IPV/OPV) 2007-07-04 Completed [facility] 00:00:00 [facility] MMR 2007-07-04 Completed [facility] 00:00:00 [facility] Polio (IPV/OPV) 2007-07-04 Completed [facility] 00:00:00 [facility] MMR 2007-07-04 Completed [facility] 00:00:00 [facility] Polio (IPV/OPV) 2007-07-04 Completed [facility] 00:00:00 [facility] MMR 2007-07-04 Completed [facility] 00:00:00 [facility] Polio (IPV/OPV) 2007-07-04 Completed [facility] 00:00:00 [facility] MMR 2007-07-04 Completed [facility] 00:00:00 [facility] Polio (IPV/OPV) 2007-07-04 Completed [facility] 00:00:00 [facility] MMR 2007-07-04 Completed [facility] 00:00:00 [facility] Polio (IPV/OPV) 2007-07-04 Completed [facility] 00:00:00 [facility] MMR 2007-07-04 Completed [facility] 00:00:00 [facility] Polio (IPV/OPV) 2007-07-04 Completed [facility] 00:00:00 [facility] MMR 2007-07-04 Completed [facility] 00:00:00 [facility] Polio (IPV/OPV) 2007-07-04 Completed [facility] 00:00:00 [facility] 2007-07-04 Completed [facility] 00:00:00 [facility] Polio (IPV/OPV) 2007-07-04 Completed [facility] 00:00:00 [facility] 2007-07-04 Completed [facility] 00[facility]00:00 [facility] Polio (IPV/OPV) 2007-07-04 Completed [facility] 00:00:00 [facility] 2007-07-04 Completed [facility] 00:00:00 [facility] Polio (IPV/OPV) 2007-07-04 Completed [facility] 00:00:00 [facility] 2007-07-04 Completed [facility] 00:00:00 [facility] Polio (IPV/OPV) 2007-07-04 Completed [facility] 00:00:00 [facility] 2007-07-04 Completed [facility] 00:00:00 [facility] Polio (IPV/OPV) 2007-07-04 Completed [facility] 00:00:00 [facility] 2007-07-04 Completed [facility] 00:00:00 [facility] Polio (IPV/OPV) 2007-07-04 Completed [facility] 00:00:00 [facility] 2007-07-04 Completed [facility] 00:00:00 [facility] Polio (IPV/OPV) 2007-07-04 Completed [facility] 00:00:00 [facility] 2007-07-04 Completed [facility] 00:00:00 [facility] Polio (IPV/OPV) 2007-07-04 Completed [facility] 00:00:00 [facility] 2007-07-04 Completed [facility] 00[facility]00:00 [facility] Polio (IPV/OPV) 2007-07-04 Completed [facility] 00:00:00 [facility] 2007-07-04 Completed [facility] 00:00:00 [facility] Polio (IPV/OPV) 2007-07-04 Completed [facility] 00:00:00 [facility] 2007-07-04 Completed [facility] 00[facility]00:00 [facility] Polio (IPV/OPV) 2007-07-04 Completed [facility] 00:00:00 [facility] 2007-07-04 Completed [facility] 00:00:00 [facility] Polio (IPV/OPV) 2007-07-04 Completed [facility] 00:00:00 [facility] 2007-07-04 Completed [facility] 00:00:00 [facility] Polio (IPV/OPV) 2007-07-04 Completed [facility] 00:00:00 [facility] 2007-07-04 Completed [facility] 00:00:00 [facility] Polio (IPV/OPV) 2007-07-04 Completed [facility] 00:00:00 [facility] 2007-07-04 Completed [facility] 00:00:00 [facility] Polio (IPV/OPV) 2007-07-04 Completed [facility] 00:00:00 [facility] 2007-07-04 Completed [facility] 00[facility]00:00 [facility] Polio (IPV/OPV) 2007-07-04 Completed [facility] 00:00:00 [facility] 2007-07-04 Completed [facility] 00:00:00 [facility] Polio (IPV/OPV) 2007-07-04 Completed [facility] 00:00:00 [facility] 2007-07-04 Completed [facility] 00:00:00 [facility] Polio (IPV/OPV) 2007-07-04 Completed [facility] 00:00:00 [facility] 2007-07-04 Completed [facility] 00:00:00 [facility] Polio (IPV/OPV) 2007-07-04 Completed [facility] 00:00:00 [facility] 2007-07-04 Completed [facility] 00:00:00 [facility] Polio (IPV/OPV) 2007-07-04 Completed [facility] 00:00:00 [facility] 2007-07-04 Completed [facility] 00:00:00 [facility] Polio (IPV/OPV) 2007-07-04 Completed [facility] 00:00:00 [facility] 2007-07-04 Completed [facility] 00:00:00 [facility] Polio (IPV/OPV) 2007-07-04 Completed [facility] 00:00:00 [facility] 2007-07-04 Completed [facility] 00:00:00 [facility] Polio (IPV/OPV) 2007-07-04 Completed [facility] 00:00:00 [facility] 2007-07-04 Completed [facility] 00:00:00 [facility] Polio (IPV/OPV) 2007-07-04 Completed [facility] 00:00:00 [facility] 2007-07-04 Completed [facility] 00[facility]00:00 [facility] Polio (IPV/OPV) 2007-07-04 Completed [facility] 00:00:00 [facility] 2007-07-04 Completed [facility] 00:00:00 [facility] Polio (IPV/OPV) 2007-07-04 Completed [facility] 00:00:00 [facility] 2007-07-04 Completed [facility] 00:00:00 [facility] 2007-07-04 Completed [facility] 00:00:00 [facility] Polio (IPV/OPV) 2007-07-04 Completed [facility] 00:00:00 [facility] Polio (IPV/OPV) 2007-07-04 Completed [facility] 00:00:00 [facility] 2007-07-04 Completed [facility] 00:00:00 [facility] Polio (IPV/OPV) 2007-07-04 Completed [facility] 00:00:00 [facility] 2007-07-04 Completed [facility] 00:00:00 [facility] Polio (IPV/OPV) 2007-07-04 Completed [facility] 00:00:00 [facility] 2007-07-04 Completed [facility] 00:00:00 [facility] Polio (IPV/OPV) 2007-07-04 Completed [facility] 00:00:00 [facility] 2007-07-04 Completed [facility] 00:00:00 [facility] Polio (IPV/OPV) 2007-07-04 Completed [facility] 00:00:00 [facility] 2007-07-04 Completed [facility] 00:00:00 [facility] Polio (IPV/OPV) 2007-07-04 Completed [facility] 00:00:00 [facility] 2007-07-04 Completed [facility] 00:00:00 [facility] Polio (IPV/OPV) 2007-07-04 Completed [facility] 00:00:00 [facility] 2007-07-04 Completed [facility] 00:00:00 [facility] Polio (IPV/OPV) 2007-07-04 Completed [facility] 00:00:00 [facility] 2007-07-04 Completed [facility] 00:00:00 [facility] Polio (IPV/OPV) 2007-07-04 Completed [facility] 00:00:00 [facility] 2007-07-04 Completed [facility] 00:00:00 [facility] Polio (IPV/OPV) 2007-07-04 Completed [facility] 00:00:00 [facility] 2007-07-04 Completed [facility] 00:00:00 [facility] Polio (IPV/OPV) 2007-07-04 Completed [facility] 00:00:00 [facility] 2007-07-04 Completed [facility] 00:00:00 [facility] Polio (IPV/OPV) 2007-07-04 Completed [facility] 00:00:00 [facility] 2007-07-04 Completed [facility] 00:00:00 [facility] Polio (IPV/OPV) 2007-07-04 Completed [facility] 00:00:00 [facility] 2007-07-04 Completed [facility] 00:00:00 [facility] Polio (IPV/OPV) 2007-07-04 Completed [facility] 00:00:00 [facility] 2007-07-04 Completed [facility] 00:00:00 [facility] Polio (IPV/OPV) 2007-07-04 Completed [facility] 00:00:00 [facility] 2007-07-04 Completed [facility] 00:00:00 [facility] Polio (IPV/OPV) 2007-07-04 Completed [facility] 00:00:00 [facility] 2007-07-04 Completed [facility] 00:00:00 [facility] Polio (IPV/OPV) 2007-07-04 Completed [facility] 00:00:00 [facility] 2007-07-04 Completed [facility] 00:00:00 [facility] Polio (IPV/OPV) 2007-07-04 Completed [facility] 00:00:00 [facility] 2007-07-04 Completed [facility] 00:00:00 [facility] Polio (IPV/OPV) 2007-07-04 Completed [facility] 00:00:00 [facility] 2007-07-04 Completed [facility] 00:00:00 [facility] Polio (IPV/OPV) 2007-07-04 Completed [facility] 00:00:00 [facility] 2007-07-04 Completed [facility] 00:00:00 [facility] Polio (IPV/OPV) 2007-07-04 Completed [facility] 00:00:00 [facility] 2007-07-04 Completed [facility] 00:00:00 [facility] 2007-07-04 Completed [facility] 00:00:00 [facility] Polio (IPV/OPV) 2007-07-04 Completed [facility] 00:00:00 [facility] Polio (IPV/OPV) 2007-07-04 Completed [facility] 00:00:00 [facility] 2007-07-04 Completed [facility] 00:00:00 [facility] Polio (IPV/OPV) 2007-07-04 Completed [facility] 00:00:00 [facility] 2007-07-04 Completed [facility] 00:00:00 [facility] Polio (IPV/OPV) 2007-07-04 Completed [facility] 00:00:00 [facility] 2007-07-04 Completed [facility] 00:00:00 [facility] Polio (IPV/OPV) 2007-07-04 Completed [facility] 00:00:00 [facility] 2007-07-04 Completed [facility] 00:00:00 [facility] Polio (IPV/OPV) 2007-07-04 Completed [facility] 00:00:00 [facility] 2007-07-04 Completed [facility] 00:00:00 [facility] Polio (IPV/OPV) 2007-07-04 Completed [facility] 00:00:00 [facility] 2007-07-04 Completed [facility] 00[facility]00:00 [facility] Polio (IPV/OPV) 2007-07-04 Completed [facility] 00:00:00 [facility] 2007-07-04 Completed [facility] 00:00:00 [facility] Polio (IPV/OPV) 2007-07-04 Completed [facility] 00:00:00 [facility] 2007-07-04 Completed [facility] 00:00:00 [facility] Polio (IPV/OPV) 2007-07-04 Completed [facility] 00:00:00 [facility] 2007-07-04 Completed [facility] 00:00:00 [facility] Polio (IPV/OPV) 2007-07-04 Completed [facility] 00:00:00 [facility] 2007-07-04 Completed [facility] 00:00:00 [facility] Polio (IPV/OPV) 2007-07-04 Completed [facility] 00:00:00 [facility] 2007-07-04 Completed [facility] 00:00:00 [facility] Polio (IPV/OPV) 2007-07-04 Completed [facility] 00:00:00 [facility] 2007-07-04 Completed [facility] 00:00:00 [facility] Polio (IPV/OPV) 2007-07-04 Completed [facility] 00:00:00 [facility] 2007-07-04 Completed [facility] 00:00:00 [facility] Polio (IPV/OPV) 2007-07-04 Completed [facility] 00:00:00 [facility] 2007-07-04 Completed [facility] 00:00:00 [facility] Polio (IPV/OPV) 2007-07-04 Completed [facility] 00:00:00 [facility] 2007-07-04 Completed [facility] 00[facility]00:00 [facility] Polio (IPV/OPV) 2007-07-04 Completed [facility] 00:00:00 [facility] 2007-07-04 Completed [facility] 00:00:00 [facility] Polio (IPV/OPV) 2007-07-04 Completed [facility] 00:00:00 [facility] 2007-07-04 Completed [facility] 00:00:00 [facility] Polio (IPV/OPV) 2007-07-04 Completed [facility] 00:00:00 [facility] 2007-07-04 Completed [facility] 00:00:00 [facility] Polio (IPV/OPV) 2007-07-04 Completed [facility] 00:00:00 [facility] 2007-07-04 Completed [facility] 00:00:00 [facility] Polio (IPV/OPV) 2007-07-04 Completed [facility] 00:00:00 [facility] 2007-07-04 Completed [facility] 00:00:00 [facility] Polio (IPV/OPV) 2007-07-04 Completed [facility] 00:00:00 [facility] MMR 2007-07-04 Completed [facility] 00:00:00 [facility] Polio (IPV/OPV) 2007-07-04 Completed [facility] 00:00:00 [facility] MMR 2007-07-04 Completed [facility] 00:00:00 [facility] Polio (IPV/OPV) 2007-07-04 Completed [facility] 00:00:00 [facility] MMR 2007-07-04 Completed [facility] 00:00:00 [facility] Polio (IPV/OPV) 2007-07-04 Completed [facility] 00:00:00 [facility] MMR 2007-07-04 Completed [facility] 00:00:00 [facility] Polio (IPV/OPV) 2007-07-04 Completed [facility] 00:00:00 [facility] MMR 2007-07-04 Completed [facility] 00:00:00 [facility] Polio (IPV/OPV) 2007-07-04 Completed [facility] 00:00:00 [facility] MMR 2007-07-04 Completed [facility] 00:00:00 [facility] Polio (IPV/OPV) 2007-07-04 Completed [facility] 00:00:00 [facility] MMR 2007-07-04 Completed [facility] 00:00:00 [facility] Polio (IPV/OPV) 2007-07-04 Completed [facility] 00:00:00 [facility] MMR 2007-07-04 Completed [facility] 00:00:00 [facility] Polio (IPV/OPV) 2007-07-04 Completed [facility] 00:00:00 [facility] Influenza Virus 2006-09-28 Completed [facility] Vaccine 00:00:00 [facility] Influenza Virus 2006-09-28 Completed [facility] Vaccine 00:00:00 [facility] Influenza Virus 2006-09-28 Completed [facility] Vaccine 00:00:00 [facility] Influenza Virus 2006-09-28 Completed [facility] Vaccine 00:00:00 [facility] Influenza Virus 2006-09-28 Completed [facility] Vaccine 00:00:00 [facility] Influenza Virus 2006-09-28 Completed [facility] Vaccine 00:00:00 [facility] Influenza Virus 2006-09-28 Completed [facility] Vaccine 00:00:00 [facility] Influenza Virus 2006-09-28 Completed [facility] Vaccine 00:00:00 [facility] Influenza Virus 2006-09-28 Completed [facility] Vaccine 00:00:00 [facility] Influenza Virus 2006-09-28 Completed [facility] Vaccine 00:00:00 [facility] Influenza Virus 2006-09-28 Completed [facility] Vaccine 00:00:00 [facility] Influenza Virus 2006-09-28 Completed [facility] Vaccine 00:00:00 [facility] Influenza Virus 2006-09-28 Completed [facility] Vaccine 00:00:00 [facility] Influenza Virus 2006-09-28 Completed [facility] Vaccine 00:00:00 [facility] Influenza Virus 2006-09-28 Completed [facility] Vaccine 00:00:00 [facility] Influenza Virus 2006-09-28 Completed [facility] Vaccine 00:00:00 [facility] Influenza Virus 2006-09-28 Completed [facility] Vaccine 00:00:00 [facility] Influenza Virus 2006-09-28 Completed [facility] Vaccine 00:00:00 [facility] Influenza Virus 2006-09-28 Completed [facility] Vaccine 00:00:00 [facility] Influenza Virus 2006-09-28 Completed [facility] Vaccine 00:00:00 [facility] Influenza Virus 2006-09-28 Completed [facility] Vaccine 00:00:00 [facility] Influenza Virus 2006-09-28 Completed [facility] Vaccine 00:00:00 [facility] Influenza Virus 2006-09-28 Completed [facility] Vaccine 00:00:00 [facility] Influenza Virus 2006-09-28 Completed [facility] Vaccine 00:00:00 [facility] Influenza Virus 2006-09-28 Completed [facility] Vaccine 00:00:00 [facility] Influenza Virus 2006-09-28 Completed [facility] Vaccine 00:00:00 [facility] Influenza Virus 2006-09-28 Completed [facility] Vaccine 00:00:00 [facility] Influenza Virus 2006-09-28 Completed [facility] Vaccine 00:00:00 [facility] Influenza Virus 2006-09-28 Completed [facility] Vaccine 00:00:00 [facility] Influenza Virus 2006-09-28 Completed [facility] Vaccine 00:00:00 [facility] Influenza Virus 2006-09-28 Completed [facility] Vaccine 00:00:00 [facility] Influenza Virus 2006-09-28 Completed [facility] Vaccine 00:00:00 [facility] Influenza Virus 2006-09-28 Completed [facility] Vaccine 00:00:00 [facility] Influenza Virus 2006-09-28 Completed [facility] Vaccine 00:00:00 [facility] Influenza Virus 2006-09-28 Completed [facility] Vaccine 00:00:00 [facility] Influenza Virus 2006-09-28 Completed [facility] Vaccine 00:00:00 [facility] Influenza Virus 2006-09-28 Completed [facility] Vaccine 00:00:00 [facility] Influenza Virus 2006-09-28 Completed [facility] Vaccine 00:00:00 [facility] Influenza Virus 2006-09-28 Completed [facility] Vaccine 00:00:00 [facility] Influenza Virus 2006-09-28 Completed [facility] Vaccine 00:00:00 [facility] Influenza Virus 2006-09-28 Completed [facility] Vaccine 00:00:00 [facility] Influenza Virus 2006-09-28 Completed [facility] Vaccine 00:00:00 [facility] Influenza Virus 2006-09-28 Completed [facility] Vaccine 00:00:00 [facility] Influenza Virus 2006-09-28 Completed [facility] Vaccine 00:00:00 [facility] Influenza Virus 2006-09-28 Completed [facility] Vaccine 00:00:00 [facility] Influenza Virus 2006-09-28 Completed [facility] Vaccine 00:00:00 [facility] Influenza Virus 2006-09-28 Completed [facility]:00 [facility] [facility] Influenza Virus 2006-09-28 Completed [facility] 00:00:00 [facility] Influenza Virus 2006-09-28 Completed [facility] Vaccine 00:00:00 [facility] Influenza Virus 2006-09-28 Completed [facility] Vaccine 00:00:00 [facility] Influenza Virus 2006-09-28 Completed [facility] Vaccine 00:00:00 [facility] Influenza Virus 2006-09-28 Completed [facility] Vaccine 00:00:00 [facility] Influenza Virus 2006-09-28 Completed [facility] Vaccine 00:00:00 [facility] Influenza Virus 2006-09-28 Completed [facility] Vaccine 00:00:00 [facility] Influenza Virus 2006-09-28 Completed [facility] Vaccine 00:00:00 [facility] Influenza Virus 2006-09-28 Completed [facility] Vaccine 00:00:00 [facility] Influenza Virus 2006-09-28 Completed [facility] Vaccine 00:00:00 [facility] Influenza Virus 2006-09-28 Completed [facility] Vaccine 00:00:00 [facility] Influenza Virus 2006-09-28 Completed [facility] Vaccine 00:00:00 [facility] Influenza Virus 2006-09-28 Completed [facility] Vaccine 00:00:00 [facility] Influenza Virus 2006-09-28 Completed [facility] Vaccine 00:00:00 [facility] Influenza Virus 2006-09-28 Completed [facility] Vaccine 00:00:00 [facility] Influenza Virus 2006-09-28 Completed [facility] Vaccine 00:00:00 [facility] Influenza Virus 2006-09-28 Completed [facility] Vaccine 00:00:00 [facility] Influenza Virus 2006-09-28 Completed [facility] Vaccine 00:00:00 [facility] Influenza Virus 2006-09-28 Completed [facility] Vaccine 00:00:00 [facility] Influenza Virus 2006-09-28 Completed [facility] Vaccine 00:00:00 [facility] Influenza Virus 2006-09-28 Completed [facility] Vaccine 00:00:00 [facility] Influenza Virus 2006-09-28 Completed [facility] Vaccine 00:00:00 [facility] Influenza Virus 2006-09-28 Completed [facility] Vaccine 00:00:00 [facility] Influenza Virus 2006-09-28 Completed [facility] Vaccine 00:00:00 [facility] Influenza Virus 2006-09-28 Completed [facility] Vaccine 00:00:00 [facility] Influenza Virus 2006-09-28 Completed [facility] Vaccine 00:00:00 [facility] Influenza Virus 2006-09-28 Completed [facility] Vaccine 00:00:00 [facility] Influenza Virus 2006-09-28 Completed [facility] Vaccine 00:00:00 [facility] Influenza Virus 2006-09-28 Completed [facility] Vaccine 00:00:00 [facility] Influenza Virus 2006-09-28 Completed [facility] Vaccine 00:00:00 [facility] Influenza Virus 2006-09-28 Completed [facility] Vaccine 00:00:00 [facility] Influenza Virus 2006-09-28 Completed [facility] Vaccine 00:00:00 [facility] Influenza Virus 2006-09-28 Completed [facility] Vaccine 00:00:00 [facility] Influenza Virus 2006-09-28 Completed [facility] Vaccine 00:00:00 [facility] Influenza Virus 2006-09-28 Completed [facility] Vaccine 00:00:00 [facility] Influenza Virus 2006-09-28 Completed [facility] Vaccine 00:00:00 [facility] Influenza Virus 2006-09-28 Completed [facility] Vaccine 00:00:00 [facility] Influenza Virus 2006-09-28 Completed [facility] Vaccine 00:00:00 [facility] Influenza Virus 2006-09-28 Completed [facility] Vaccine 00:00:00 [facility] Influenza Virus 2006-09-28 Completed [facility] Vaccine 00:00:00 [facility] Influenza Virus 2006-09-28 Completed [facility] Vaccine 00:00:00 [facility] Influenza Virus 2006-09-28 Completed [facility] Vaccine 00:00:00 [facility] HEPATITIS A 2006-02-07 Completed [facility] 00:00:00 [facility] HEPATITIS A 2006-02-07 Completed [facility] 00:00:00 [facility] HEPATITIS A 2006-02-07 Completed [facility] 00:00:00 [facility] HEPATITIS A 2006-02-07 Completed [facility] 00:00:00 [facility] HEPATITIS A 2006-02-07 Completed [facility] 00:00:00 [facility] HEPATITIS A 2006-02-07 Completed [facility] 00:00:00 [facility] HEPATITIS A 2006-02-07 Completed [facility] 00:00:00 [facility] HEPATITIS A 2006-02-07 Completed [facility] 00:00:00 [facility] HEPATITIS A 2006-02-07 Completed [facility] 00:00:00 [facility] HEPATITIS A 2006-02-07 Completed [facility] 00:00:00 [facility] HEPATITIS A 2006-02-07 Completed [facility] 00:00:00 [facility] HEPATITIS A 2006-02-07 Completed [facility] 00:00:00 [facility] HEPATITIS A 2006-02-07 Completed [facility] 00:00:00 [facility] HEPATITIS A 2006-02-07 Completed [facility] 00:00:00 [facility] HEPATITIS A 2006-02-07 Completed [facility] 00:00:00 [facility] HEPATITIS A 2006-02-07 Completed [facility] 00:00:00 [facility] HEPATITIS A 2006-02-07 Completed [facility] 00:00:00 [facility] HEPATITIS A 2006-02-07 Completed [facility] 00:00:00 [facility] HEPATITIS A 2006-02-07 Completed [facility] 00:00:00 [facility] HEPATITIS A 2006-02-07 Completed [facility] 00:00:00 [facility] HEPATITIS A 2006-02-07 Completed [facility] 00:00:00 [facility] HEPATITIS A 2006-02-07 Completed [facility] 00:00:00 [facility] HEPATITIS A 2006-02-07 Completed [facility] 00:00:00 [facility] HEPATITIS A 2006-02-07 Completed [facility] 00:00:00 [facility] HEPATITIS A 2006-02-07 Completed [facility] 00:00:00 [facility] HEPATITIS A 2006-02-07 Completed [facility] 00:00:00 [facility] HEPATITIS A 2006-02-07 Completed [facility] 00:00:00 [facility] HEPATITIS A 2006-02-07 Completed [facility] 00:00:00 [facility] HEPATITIS A 2006-02-07 Completed [facility] 00:00:00 [facility] HEPATITIS A 2006-02-07 Completed [facility] 00:00:00 [facility] HEPATITIS A 2006-02-07 Completed [facility] 00:00:00 [facility] HEPATITIS A 2006-02-07 Completed [facility] 00:00:00 [facility] HEPATITIS A 2006-02-07 Completed [facility] 00:00:00 [facility] HEPATITIS A 2006-02-07 Completed [facility] 00:00:00 [facility] HEPATITIS A 2006-02-07 Completed [facility] 00:00:00 [facility] HEPATITIS A 2006-02-07 Completed [facility] 00:00:00 [facility] HEPATITIS A 2006-02-07 Completed [facility] 00:00:00 [facility] HEPATITIS A 2006-02-07 Completed [facility] 00:00:00 [facility] HEPATITIS A 2006-02-07 Completed [facility] 00:00:00 [facility] HEPATITIS A 2006-02-07 Completed [facility] 00:00:00 [facility] HEPATITIS A 2006-02-07 Completed [facility] 00:00:00 [facility] HEPATITIS A 2006-02-07 Completed [facility] 00:00:00 [facility] HEPATITIS A 2006-02-07 Completed [facility] 00:00:00 [facility] HEPATITIS A 2006-02-07 Completed [facility] 00:00:00 [facility] HEPATITIS A 2006-02-07 Completed [facility] 00:00:00 [facility] HEPATITIS A 2006-02-07 Completed [facility] 00:00:00 [facility] HEPATITIS A 2006-02-07 Completed [facility] 00:00:00 [facility] HEPATITIS A 2006-02-07 Completed [facility] 00:00:00 [facility] HEPATITIS A 2006-02-07 Completed [facility] 00:00:00 [facility] HEPATITIS A 2006-02-07 Completed [facility] 00:00:00 [facility] HEPATITIS A 2006-02-07 Completed [facility] 00:00:00 [facility] HEPATITIS A 2006-02-07 Completed [facility] 00:00:00 [facility] HEPATITIS A 2006-02-07 Completed [facility] 00:00:00 [facility] HEPATITIS A 2006-02-07 Completed [facility] 00:00:00 [facility] HEPATITIS A 2006-02-07 Completed [facility] 00:00:00 [facility] HEPATITIS A 2006-02-07 Completed [facility] 00:00:00 [facility] HEPATITIS A 2006-02-07 Completed [facility] 00:00:00 [facility] HEPATITIS A 2006-02-07 Completed [facility] 00:00:00 [facility] HEPATITIS A 2006-02-07 Completed [facility] 00:00:00 [facility] HEPATITIS A 2006-02-07 Completed [facility] 00:00:00 [facility] HEPATITIS A 2006-02-07 Completed [facility] 00:00:00 [facility] HEPATITIS A 2006-02-07 Completed [facility] 00:00:00 [facility] HEPATITIS A 2006-02-07 Completed [facility] 00:00:00 [facility] HEPATITIS A 2006-02-07 Completed [facility] 00:00:00 [facility] HEPATITIS A 2006-02-07 Completed [facility] 00:00:00 [facility] HEPATITIS A 2006-02-07 Completed [facility] 00:00:00 [facility] HEPATITIS A 2006-02-07 Completed [facility] 00:00:00 [facility] HEPATITIS A 2006-02-07 Completed [facility] 00:00:00 [facility] HEPATITIS A 2006-02-07 Completed [facility] 00:00:00 [facility] HEPATITIS A 2006-02-07 Completed [facility] 00:00:00 [facility] HEPATITIS A 2006-02-07 Completed [facility] 00:00:00 [facility] HEPATITIS A 2006-02-07 Completed [facility] 00:00:00 [facility] HEPATITIS A 2006-02-07 Completed [facility] 00:00:00 [facility] HEPATITIS A 2006-02-07 Completed [facility] 00:00:00 [facility] HEPATITIS A 2006-02-07 Completed [facility] 00:00:00 [facility] HEPATITIS A 2006-02-07 Completed [facility] 00:00:00 [facility] HEPATITIS A 2006-02-07 Completed [facility] 00:00:00 [facility] HEPATITIS A 2006-02-07 Completed [facility] 00:00:00 [facility] HEPATITIS A 2006-02-07 Completed [facility] 00:00:00 [facility] HEPATITIS A 2006-02-07 Completed [facility] 00:00:00 [facility] HEPATITIS A 2006-02-07 Completed [facility] 00:00:00 [facility] HEPATITIS A 2006-02-07 Completed [facility] 00:00:00 [facility] HEPATITIS A 2006-02-07 Completed [facility] 00:00:00 [facility] HEPATITIS A 2006-02-07 Completed [facility] 00:00:00 [facility] HEPATITIS A 2006-02-07 Completed [facility] 00:00:00 [facility] HEPATITIS A 2006-02-07 Completed [facility] 00[facility]00:00 [facility] HEPATITIS A 2006-02-07 Completed [facility] 00:00:00 [facility] HEPATITIS A 2006-02-07 Completed [facility] 00:00:00 [facility] HEPATITIS A 2006-02-07 Completed [facility] 00:00:00 [facility] Influenza Virus 2005-09-12 Completed [facility] Vaccine 00:00:00 [facility] Influenza Virus 2005-09-12 Completed [facility] Vaccine 00:00:00 [facility] Influenza Virus 2005-09-12 Completed [facility] Vaccine 00:00:00 [facility] Influenza Virus 2005-09-12 Completed [facility] Vaccine 00:00:00 [facility] Influenza Virus 2005-09-12 Completed [facility] Vaccine 00:00:00 [facility] Influenza Virus 2005-09-12 Completed [facility] Vaccine 00:00:00 [facility] Influenza Virus 2005-09-12 Completed [facility] Vaccine 00:00:00 [facility] Influenza Virus 2005-09-12 Completed [facility] Vaccine 00:00:00 [facility] Influenza Virus 2005-09-12 Completed [facility] Vaccine 00:00:00 [facility] Influenza Virus 2005-09-12 Completed [facility] Vaccine 00:00:00 [facility] Influenza Virus 2005-09-12 Completed [facility] Vaccine 00:00:00 [facility] Influenza Virus 2005-09-12 Completed [facility] Vaccine 00:00:00 [facility] Influenza Virus 2005-09-12 Completed [facility] Vaccine 00:00:00 [facility] Influenza Virus 2005-09-12 Completed [facility] Vaccine 00:00:00 [facility] Influenza Virus 2005-09-12 Completed [facility] Vaccine 00:00:00 [facility] Influenza Virus 2005-09-12 Completed [facility] Vaccine 00:00:00 [facility] Influenza Virus 2005-09-12 Completed [facility] Vaccine 00:00:00 [facility] Influenza Virus 2005-09-12 Completed [facility] Vaccine 00:00:00 [facility] Influenza Virus 2005-09-12 Completed [facility] Vaccine 00:00:00 [facility] Influenza Virus 2005-09-12 Completed [facility] Vaccine 00:00:00 [facility] Influenza Virus 2005-09-12 Completed [facility] Vaccine 00:00:00 [facility] Influenza Virus 2005-09-12 Completed [facility] Vaccine 00:00:00 [facility] Influenza Virus 2005-09-12 Completed [facility] Vaccine 00:00:00 [facility] Influenza Virus 2005-09-12 Completed [facility] Vaccine 00:00:00 [facility] Influenza Virus 2005-09-12 Completed [facility] Vaccine 00:00:00 [facility] Influenza Virus 2005-09-12 Completed [facility] Vaccine 00:00:00 [facility] Influenza Virus 2005-09-12 Completed [facility] Vaccine 00:00:00 [facility] Influenza Virus 2005-09-12 Completed [facility] Vaccine 00:00:00 [facility] Influenza Virus 2005-09-12 Completed [facility] Vaccine 00:00:00 [facility] Influenza Virus 2005-09-12 Completed [facility] Vaccine 00:00:00 [facility] Influenza Virus 2005-09-12 Completed [facility] Vaccine 00:00:00 [facility] Influenza Virus 2005-09-12 Completed [facility] Vaccine 00:00:00 [facility] Influenza Virus 2005-09-12 Completed [facility] Vaccine 00:00:00 [facility] Influenza Virus 2005-09-12 Completed [facility] Vaccine 00:00:00 [facility] Influenza Virus 2005-09-12 Completed [facility] Vaccine 00:00:00 [facility] Influenza Virus 2005-09-12 Completed [facility] Vaccine 00:00:00 [facility] Influenza Virus 2005-09-12 Completed [facility] Vaccine 00:00:00 [facility] Influenza Virus 2005-09-12 Completed [facility] Vaccine 00:00:00 [facility] Influenza Virus 2005-09-12 Completed [facility] Vaccine 00:00:00 [facility] Influenza Virus 2005-09-12 Completed [facility] Vaccine 00:00:00 [facility] Influenza Virus 2005-09-12 Completed [facility] Vaccine 00:00:00 [facility] Influenza Virus 2005-09-12 Completed [facility] Vaccine 00:00:00 [facility] Influenza Virus 2005-09-12 Completed [facility] Vaccine 00:00:00 [facility] Influenza Virus 2005-09-12 Completed [facility] Vaccine 00:00:00 [facility] Influenza Virus 2005-09-12 Completed [facility] Vaccine 00:00:00 [facility] Influenza Virus 2005-09-12 Completed [facility] Vaccine 00:00:00 [facility] Influenza Virus 2005-09-12 Completed [facility] Vaccine 00:00:00 [facility] Influenza Virus 2005-09-12 Completed [facility] Vaccine 00:00:00 [facility] Influenza Virus 2005-09-12 Completed [facility] Vaccine 00:00:00 [facility] Influenza Virus 2005-09-12 Completed [facility] Vaccine 00:00:00 [facility] Influenza Virus 2005-09-12 Completed [facility] Vaccine 00:00:00 [facility] Influenza Virus 2005-09-12 Completed [facility] Vaccine 00:00:00 [facility] Influenza Virus 2005-09-12 Completed [facility] Vaccine 00:00:00 [facility] Influenza Virus 2005-09-12 Completed [facility] Vaccine 00:00:00 [facility] Influenza Virus 2005-09-12 Completed [facility] Vaccine 00:00:00 [facility] Influenza Virus 2005-09-12 Completed [facility] Vaccine 00:00:00 [facility] Influenza Virus 2005-09-12 Completed [facility] Vaccine 00:00:00 [facility] Influenza Virus 2005-09-12 Completed [facility] Vaccine 00:00:00 [facility] Influenza Virus 2005-09-12 Completed [facility] Vaccine 00:00:00 [facility] Influenza Virus 2005-09-12 Completed [facility] Vaccine 00:00:00 [facility] Influenza Virus 2005-09-12 Completed [facility] Vaccine 00:00:00 [facility] Influenza Virus 2005-09-12 Completed [facility] Vaccine 00:00:00 [facility] Influenza Virus 2005-09-12 Completed [facility] Vaccine 00:00:00 [facility] Influenza Virus 2005-09-12 Completed [facility] Vaccine 00:00:00 [facility] Influenza Virus 2005-09-12 Completed [facility] Vaccine 00:00:00 [facility] Influenza Virus 2005-09-12 Completed [facility] Vaccine 00:00:00 [facility] Influenza Virus 2005-09-12 Completed [facility] Vaccine 00:00:00 [facility] Influenza Virus 2005-09-12 Completed [facility] Vaccine 00:00:00 [facility] Influenza Virus 2005-09-12 Completed [facility] Vaccine 00:00:00 [facility] Influenza Virus 2005-09-12 Completed [facility] Vaccine 00:00:00 [facility] Influenza Virus 2005-09-12 Completed [facility] Vaccine 00:00:00 [facility] Influenza Virus 2005-09-12 Completed [facility] Vaccine 00:00:00 [facility] Influenza Virus 2005-09-12 Completed [facility] Vaccine 00:00:00 [facility] Influenza Virus 2005-09-12 Completed [facility] Vaccine 00:00:00 [facility] Influenza Virus 2005-09-12 Completed [facility] Vaccine 00:00:00 [facility] Influenza Virus 2005-09-12 Completed [facility] Vaccine 00:00:00 [facility] Influenza Virus 2005-09-12 Completed [facility] Vaccine 00:00:00 [facility] Influenza Virus 2005-09-12 Completed [facility] Vaccine 00:00:00 [facility] Influenza Virus 2005-09-12 Completed [facility] Vaccine 00:00:00 [facility] Influenza Virus 2005-09-12 Completed [facility] Vaccine 00:00:00 [facility] Influenza Virus 2005-09-12 Completed [facility] Vaccine 00:00:00 [facility] Influenza Virus 2005-09-12 Completed [facility] Vaccine 00:00:00 [facility] Influenza Virus 2005-09-12 Completed [facility] Vaccine 00:00:00 [facility] Influenza Virus 2005-09-12 Completed [facility] Vaccine 00:00:00 [facility] Influenza Virus 2005-09-12 Completed [facility] Vaccine 00:00:00 [facility] Influenza Virus 2005-09-12 Completed [facility] Vaccine 00:00:00 [facility] Influenza Virus 2005-09-12 Completed [facility] Vaccine 00:00:00 [facility] Influenza Virus 2005-09-12 Completed [facility] Vaccine 00:00:00 [facility] Influenza Virus 2005-09-12 Completed [facility] Vaccine 00:00:00 [facility] Influenza Virus 2005-08-15 Completed [facility] Vaccine 00:00:00 [facility] Influenza Virus 2005-08-15 Completed [facility] Vaccine 00:00:00 [facility] Influenza Virus 2005-08-15 Completed [facility] Vaccine 00:00:00 [facility] Influenza Virus 2005-08-15 Completed [facility] Vaccine 00:00:00 [facility] Influenza Virus 2005-08-15 Completed [facility] Vaccine 00:00:00 [facility] Influenza Virus 2005-08-15 Completed [facility] Vaccine 00:00:00 [facility] Influenza Virus 2005-08-15 Completed [facility] Vaccine 00:00:00 [facility] Influenza Virus 2005-08-15 Completed [facility] Vaccine 00:00:00 [facility] Influenza Virus 2005-08-15 Completed [facility] Vaccine 00:00:00 [facility] Influenza Virus 2005-08-15 Completed [facility] Vaccine 00:00:00 [facility] Influenza Virus 2005-08-15 Completed [facility] Vaccine 00:00:00 [facility] Influenza Virus 2005-08-15 Completed [facility] Vaccine 00:00:00 [facility] Influenza Virus 2005-08-15 Completed [facility]ine 00[facility]00:00 [facility] Influenza Virus 2005-08-15 Completed [facility] Vaccine 00:00:00 [facility] Influenza Virus 2005-08-15 Completed [facility] Vaccine 00:00:00 [facility] Influenza Virus 2005-08-15 Completed [facility] Vaccine 00:00:00 [facility] Influenza Virus 2005-08-15 Completed [facility] Vaccine 00:00:00 [facility] Influenza Virus 2005-08-15 Completed [facility] Vaccine 00:00:00 [facility] Influenza Virus 2005-08-15 Completed [facility] Vaccine 00:00:00 [facility] Influenza Virus 2005-08-15 Completed [facility] Vaccine 00:00:00 [facility] Influenza Virus 2005-08-15 Completed [facility] Vaccine 00:00:00 [facility] Influenza Virus 2005-08-15 Completed [facility] Vaccine 00:00:00 [facility] Influenza Virus 2005-08-15 Completed [facility] Vaccine 00:00:00 [facility] Influenza Virus 2005-08-15 Completed [facility]ine 00:00:00 [facility] Influenza Virus 2005-08-15 Completed [facility] Vaccine 00:00:00 [facility] Influenza Virus 2005-08-15 Completed [facility] Vaccine 00:00:00 [facility] Influenza Virus 2005-08-15 Completed [facility] Vaccine 00:00:00 [facility] Influenza Virus 2005-08-15 Completed [facility] Vaccine 00:00:00 [facility] Influenza Virus 2005-08-15 Completed [facility] Vaccine 00:00:00 [facility] Influenza Virus 2005-08-15 Completed [facility] Vaccine 00:00:00 [facility] Influenza Virus 2005-08-15 Completed [facility] Vaccine 00:00:00 [facility] Influenza Virus 2005-08-15 Completed [facility] Vaccine 00:00:00 [facility] Influenza Virus 2005-08-15 Completed [facility] Vaccine 00:00:00 [facility] Influenza Virus 2005-08-15 Completed [facility] Vaccine 00:00:00 [facility] Influenza Virus 2005-08-15 Completed [facility] Vaccine 00:00:00 [facility] Influenza Virus 2005-08-15 Completed [facility] Vaccine 00:00:00 [facility] Influenza Virus 2005-08-15 Completed [facility] Vaccine 00:00:00 [facility] Influenza Virus 2005-08-15 Completed [facility] Vaccine 00:00:00 [facility] Influenza Virus 2005-08-15 Completed [facility] Vaccine 00:00:00 [facility] Influenza Virus 2005-08-15 Completed [facility] Vaccine 00:00:00 [facility] Influenza Virus 2005-08-15 Completed [facility] Vaccine 00:00:00 [facility] Influenza Virus 2005-08-15 Completed [facility] Vaccine 00:00:00 [facility] Influenza Virus 2005-08-15 Completed [facility] Vaccine 00:00:00 [facility] Influenza Virus 2005-08-15 Completed [facility] Vaccine 00:00:00 [facility] Influenza Virus 2005-08-15 Completed [facility] Vaccine 00:00:00 [facility] Influenza Virus 2005-08-15 Completed [facility] Vaccine 00:00:00 [facility] Influenza Virus 2005-08-15 Completed [facility] Vaccine 00:00:00 [facility] Influenza Virus 2005-08-15 Completed [facility] Vaccine 00:00:00 [facility] Influenza Virus 2005-08-15 Completed [facility] Vaccine 00:00:00 [facility] Influenza Virus 2005-08-15 Completed [facility] Vaccine 00:00:00 [facility] Influenza Virus 2005-08-15 Completed [facility] Vaccine 00:00:00 [facility] Influenza Virus 2005-08-15 Completed [facility] Vaccine 00:00:00 [facility] Influenza Virus 2005-08-15 Completed [facility] Vaccine 00:00:00 [facility] Influenza Virus 2005-08-15 Completed [facility] Vaccine 00:00:00 [facility] Influenza Virus 2005-08-15 Completed [facility] Vaccine 00:00:00 [facility] Influenza Virus 2005-08-15 Completed [facility] Vaccine 00:00:00 [facility] Influenza Virus 2005-08-15 Completed [facility] Vaccine 00:00:00 [facility] Influenza Virus 2005-08-15 Completed [facility] Vaccine 00:00:00 [facility] Influenza Virus 2005-08-15 Completed [facility] Vaccine 00:00:00 [facility] Influenza Virus 2005-08-15 Completed [facility] Vaccine 00:00:00 [facility] Influenza Virus 2005-08-15 Completed [facility] Vaccine 00:00:00 [facility] Influenza Virus 2005-08-15 Completed [facility] Vaccine 00:00:00 [facility] Influenza Virus 2005-08-15 Completed [facility] Vaccine 00:00:00 [facility] Influenza Virus 2005-08-15 Completed [facility] Vaccine 00:00:00 [facility] Influenza Virus 2005-08-15 Completed [facility] Vaccine 00:00:00 [facility] Influenza Virus 2005-08-15 Completed [facility] Vaccine 00:00:00 [facility] Influenza Virus 2005-08-15 Completed [facility] Vaccine 00:00:00 [facility] Influenza Virus 2005-08-15 Completed [facility] Vaccine 00:00:00 [facility] Influenza Virus 2005-08-15 Completed [facility] Vaccine 00:00:00 [facility] Influenza Virus 2005-08-15 Completed [facility] Vaccine 00:00:00 [facility] Influenza Virus 2005-08-15 Completed [facility] Vaccine 00:00:00 [facility] Influenza Virus 2005-08-15 Completed [facility] Vaccine 00:00:00 [facility] Influenza Virus 2005-08-15 Completed [facility] Vaccine 00:00:00 [facility] Influenza Virus 2005-08-15 Completed [facility] Vaccine 00:00:00 [facility] Influenza Virus 2005-08-15 Completed [facility] Vaccine 00:00:00 [facility] Influenza Virus 2005-08-15 Completed [facility] Vaccine 00:00:00 [facility] Influenza Virus 2005-08-15 Completed [facility] Vaccine 00:00:00 [facility] Influenza Virus 2005-08-15 Completed [facility] Vaccine 00:00:00 [facility] Influenza Virus 2005-08-15 Completed [facility] Vaccine 00:00:00 [facility] Influenza Virus 2005-08-15 Completed [facility] Vaccine 00:00:00 [facility] Influenza Virus 2005-08-15 Completed [facility] Vaccine 00:00:00 [facility] Influenza Virus 2005-08-15 Completed [facility] Vaccine 00:00:00 [facility] Influenza Virus 2005-08-15 Completed [facility] Vaccine 00:00:00 [facility] Influenza Virus 2005-08-15 Completed [facility] Vaccine 00:00:00 [facility] Influenza Virus 2005-08-15 Completed [facility] Vaccine 00:00:00 [facility] Influenza Virus 2005-08-15 Completed [facility] Vaccine 00:00:00 [facility] Influenza Virus 2005-08-15 Completed [facility] Vaccine 00:00:00 [facility] Influenza Virus 2005-08-15 Completed [facility] Vaccine 00:00:00 [facility] Influenza Virus 2005-08-15 Completed [facility] Vaccine 00:00:00 [facility] HEPATITIS A 2005-08-01 Completed [facility] of 00:00:00 [facility] HEPATITIS A 2005-08-01 Completed [facility] 00:00:00 [facility] HEPATITIS A 2005-08-01 Completed [facility] 00:00:00 [facility] HEPATITIS A 2005-08-01 Completed [facility] 00:00:00 [facility] HEPATITIS A 2005-08-01 Completed [facility] 00:00:00 [facility] HEPATITIS A 2005-08-01 Completed [facility] 00:00:00 [facility] HEPATITIS A 2005-08-01 Completed [facility] 00:00:00 [facility] HEPATITIS A 2005-08-01 Completed [facility] 00:00:00 [facility] HEPATITIS A 2005-08-01 Completed [facility] 00:00:00 [facility] HEPATITIS A 2005-08-01 Completed [facility] 00:00:00 [facility] HEPATITIS A 2005-08-01 Completed [facility] 00:00:00 [facility] HEPATITIS A 2005-08-01 Completed [facility] 00:00:00 [facility] HEPATITIS A 2005-08-01 Completed [facility] 00:00:00 [facility] HEPATITIS A 2005-08-01 Completed [facility] 00:00:00 [facility] HEPATITIS A 2005-08-01 Completed [facility] 00:00:00 [facility] HEPATITIS A 2005-08-01 Completed [facility] 00:00:00 [facility] HEPATITIS A 2005-08-01 Completed [facility] 00:00:00 [facility] HEPATITIS A 2005-08-01 Completed [facility] 00:00:00 [facility] HEPATITIS A 2005-08-01 Completed [facility] 00:00:00 [facility] HEPATITIS A 2005-08-01 Completed [facility] 00:00:00 [facility] HEPATITIS A 2005-08-01 Completed [facility] 00:00:00 [facility] HEPATITIS A 2005-08-01 Completed [facility] 00:00:00 [facility] HEPATITIS A 2005-08-01 Completed [facility] 00:00:00 [facility] HEPATITIS A 2005-08-01 Completed [facility] 00:00:00 [facility] HEPATITIS A 2005-08-01 Completed [facility] 00:00:00 [facility] HEPATITIS A 2005-08-01 Completed [facility] 00:00:00 [facility] HEPATITIS A 2005-08-01 Completed [facility] 00:00:00 [facility] HEPATITIS A 2005-08-01 Completed [facility] 00:00:00 [facility] HEPATITIS A 2005-08-01 Completed [facility] 00:00:00 [facility] HEPATITIS A 2005-08-01 Completed [facility] 00:00:00 [facility] HEPATITIS A 2005-08-01 Completed [facility] 00:00:00 [facility] HEPATITIS A 2005-08-01 Completed [facility] 00:00:00 [facility] HEPATITIS A 2005-08-01 Completed [facility] 00:00:00 [facility] HEPATITIS A 2005-08-01 Completed [facility] 00:00:00 [facility] HEPATITIS A 2005-08-01 Completed [facility] 00:00:00 [facility] HEPATITIS A 2005-08-01 Completed [facility] 00:00:00 [facility] HEPATITIS A 2005-08-01 Completed [facility] 00:00:00 [facility] HEPATITIS A 2005-08-01 Completed [facility] 00:00:00 [facility] HEPATITIS A 2005-08-01 Completed [facility] 00:00:00 [facility] HEPATITIS A 2005-08-01 Completed [facility] 00:00:00 [facility] HEPATITIS A 2005-08-01 Completed [facility] 00:00:00 [facility] HEPATITIS A 2005-08-01 Completed [facility] 00:00:00 [facility] HEPATITIS A 2005-08-01 Completed [facility] 00:00:00 [facility] HEPATITIS A 2005-08-01 Completed [facility] 00:00:00 [facility] HEPATITIS A 2005-08-01 Completed [facility] 00:00:00 [facility] HEPATITIS A 2005-08-01 Completed [facility] 00:00:00 [facility] HEPATITIS A 2005-08-01 Completed [facility] 00:00:00 [facility] HEPATITIS A 2005-08-01 Completed [facility] 00:00:00 [facility] HEPATITIS A 2005-08-01 Completed [facility] 00:00:00 [facility] HEPATITIS A 2005-08-01 Completed [facility] 00:00:00 [facility] HEPATITIS A 2005-08-01 Completed [facility] 00:00:00 [facility] HEPATITIS A 2005-08-01 Completed [facility] 00:00:00 [facility] HEPATITIS A 2005-08-01 Completed [facility] 00:00:00 [facility] HEPATITIS A 2005-08-01 Completed [facility] 00:00:00 [facility] HEPATITIS A 2005-08-01 Completed [facility] 00:00:00 [facility] HEPATITIS A 2005-08-01 Completed [facility] 00:00:00 [facility] HEPATITIS A 2005-08-01 Completed [facility] 00:00:00 [facility] HEPATITIS A 2005-08-01 Completed [facility] 00:00:00 [facility] HEPATITIS A 2005-08-01 Completed [facility] 00:00:00 [facility] HEPATITIS A 2005-08-01 Completed [facility] 00:00:00 [facility] HEPATITIS A 2005-08-01 Completed [facility] 00:00:00 [facility] HEPATITIS A 2005-08-01 Completed [facility] 00:00:00 [facility] HEPATITIS A 2005-08-01 Completed [facility] 00:00:00 [facility] HEPATITIS A 2005-08-01 Completed [facility] 00:00:00 [facility] HEPATITIS A 2005-08-01 Completed [facility] 00:00:00 [facility] HEPATITIS A 2005-08-01 Completed [facility] 00:00:00 [facility] HEPATITIS A 2005-08-01 Completed [facility] 00:00:00 [facility] HEPATITIS A 2005-08-01 Completed [facility] 00:00:00 [facility] HEPATITIS A 2005-08-01 Completed [facility] 00:00:00 [facility] HEPATITIS A 2005-08-01 Completed [facility] 00:00:00 [facility] HEPATITIS A 2005-08-01 Completed [facility] 00:00:00 [facility] HEPATITIS A 2005-08-01 Completed [facility] 00:00:00 [facility] HEPATITIS A 2005-08-01 Completed [facility] 00:00:00 [facility] HEPATITIS A 2005-08-01 Completed [facility] 00:00:00 [facility] HEPATITIS A 2005-08-01 Completed [facility] 00:00:00 [facility] HEPATITIS A 2005-08-01 Completed [facility] 00:00:00 [facility] HEPATITIS A 2005-08-01 Completed [facility] 00:00:00 [facility] HEPATITIS A 2005-08-01 Completed [facility] 00:00:00 [facility] HEPATITIS A 2005-08-01 Completed [facility] 00:00:00 [facility] HEPATITIS A 2005-08-01 Completed [facility] of 00:00:00 [facility] HEPATITIS A 2005-08-01 Completed [facility] 00:00:00 [facility] HEPATITIS A 2005-08-01 Completed [facility] 00:00:00 [facility] HEPATITIS A 2005-08-01 Completed [facility] of 00:00:00 [facility] HEPATITIS A 2005-08-01 Completed [facility] of 00:00:00 [facility] HEPATITIS A 2005-08-01 Completed [facility] 00:00:00 [facility] HEPATITIS A 2005-08-01 Completed [facility] 00:00:00 [facility] HEPATITIS A 2005-08-01 Completed [facility] 00:00:00 [facility] HEPATITIS A 2005-08-01 Completed [facility] of 00:00:00 [facility] HEPATITIS A 2005-08-01 Completed [facility] of 00:00:00 [facility] Pneumococcal 7 2004-10-04 Completed [facility] of [...] 2004-06-27 Completed [facility] of 00:00:00 [facility] HIB 4 Dose Schedule 2004-06-27 Completed Unive rsity of 00:00:00 [facility] MMR 2004-06-27 Completed [facility] of 00:00:00 [facility] Pneumococcal 7 2004-06-27 Completed [facility] of Conjugate, PCV7 00:00:00 [place] [facility]Pre[facility]ar[facility] Varicella 2004-06-27 Completed [facility] of (varivax)(chicken pox) 00:00:00 [facility] DTAP 2004-06-27 Completed [facility] of 00:00:00 [facility] HIB 4 Dose Schedule 2004-06-27 Completed Unive rsity of 00:00:00 [facility] MMR 2004-06-27 Completed [facility] of 00:00:00 [facility] Pneumococcal 7 2004-06-27 Completed [facility] of Conjugate, PCV7 00:00:00 [place] [facility]Pre[facility]ar[facility] Varicella 2004-06-27 Completed [facility] of (varivax)(chicken pox) 00:00:00 [facility] DTAP 2004-06-27 Completed [facility] of 00:00:00 [facility] DTAP 2004-06-27 Completed [facility] of 00:00:00 [facility] HIB 4 Dose Schedule 2004-06-27 Completed Unive rsity of 00:00:00 [facility] MMR 2004-06-27 Completed [facility] of 00:00:00 [facility] Pneumococcal 7 2004-06-27 Completed [facility] of Conjugate, PCV7 00:00:00 [place] [facility] (Pre[facility]ar[facility] HIB 4 Dose Schedule 2004-06-27 Completed Unive rsity of 00:00:00 [facility] Varicella 2004-06-27 Completed [facility] of (varivax)(chicken pox) 00:00:00 [facility] MMR 2004-06-27 Completed [facility] of 00:00:00 [facility] Pneumococcal 7 2004-06-27 Completed [facility] of Conjugate, PCV7 00:00:00 [facility] [place] [facility]Pre[facility]ar[facility] DTAP 2004-06-27 Completed [facility] of 00:00:00 [facility] HIB 4 Dose Schedule 2004-06-27 Completed Unive rsity of 00:00:00 [facility] MMR 2004-06-27 Completed [facility] of 00:00:00 [facility] Pneumococcal 7 2004-06-27 Completed [facility] of Conjugate, PCV7 00:00:00 [facility] [place] [facility]Prevnar[facility] Varicella 2004-06-27 Completed [facility] of (varivax)(chicken pox) 00:00:00 [facility] Varicella 2004-06-27 Completed [facility] of (varivax)(chicken pox) 00:00:00 [facility] DTAP 2004-06-27 Completed [facility] of 00:00:00 [facility] HIB 4 Dose Schedule 2004-06-27 Completed Unive rsity of 00:00:00 [facility] MMR 2004-06-27 Completed [facility] of 00:00:00 [facility] Pneumococcal 7 2004-06-27 Completed [facility] of Conjugate, PCV7 00:00:00 [facility] [place] [facility]Pre[facility]ar[facility] Varicella 2004-06-27 Completed [facility] of (varivax)(chicken pox) 00:00:00 [facility] DTAP 2004-06-27 Completed [facility] of 00:00:00 [facility] HIB 4 Dose Schedule 2004-06-27 Completed Unive rsity of 00:00:00 [facility] MMR 2004-06-27 Completed [facility] of 00:00:00 [facility] Pneumococcal 7 2004-06-27 Completed [facility] of Conjugate, PCV7 00:00:00 [facility] [place] [facility]Pre[facility]ar[facility] Varicella 2004-06-27 Completed [facility] of (varivax)(chicken pox) 00:00:00 [facility] DTAP 2004-06-27 Completed [facility] of 00:00:00 [facility] HIB 4 Dose Schedule 2004-06-27 Completed Unive rsity of 00:00:00 [facility] MMR 2004-06-27 Completed [facility] of 00:00:00 [facility] Pneumococcal 7 2004-06-27 Completed [facility] of Conjugate, PCV7 00:00:00 [facility] [place] [facility]Prevnar[facility] Varicella 2004-06-27 Completed [facility] of (varivax)(chicken pox) 00:00:00 [facility] DTAP 2004-06-27 Completed [facility] of 00:00:00 [facility] HIB 4 Dose Schedule 2004-06-27 Completed Unive rsity of 00:00:00 [facility] MMR 2004-06-27 Completed [facility] of 00:00:00 [facility] Pneumococcal 7 2004-06-27 Completed [facility] of Conjugate, PCV7 00:00:00 [facility] [place] [facility]Prevnar[facility] Varicella 2004-06-27 Completed [facility] of (varivax)(chicken pox) 00:00:00 [facility] DTAP 2004-06-27 Completed [facility] of 00:00:00 [facility] HIB 4 Dose Schedule 2004-06-27 Completed Unive rsity of 00:00:00 [facility] MMR 2004-06-27 Completed [facility] of 00:00:00 [facility] Pneumococcal 7 2004-06-27 Completed [facility] of Conjugate, PCV7 00:00:00 [facility] [place] [facility]Pre[facility]ar[facility] Varicella 2004-06-27 Completed [facility] of (varivax)(chicken pox) 00:00:00 [facility] DTAP 2004-06-27 Completed [facility] of 00:00:00 [facility] HIB 4 Dose Schedule 2004-06-27 Completed Unive rsity of 00:00:00 [facility] MMR 2004-06-27 Completed [facility] of 00:00:00 [facility] Pneumococcal 7 2004-06-27 Completed [facility] of Conjugate, PCV7 00:00:00 [facility] [place] [facility]ar[facility] Varicella 2004-06-27 Completed [facility] of (varivax)(chicken pox) 00:00:00 [facility] DTAP 2004-06-27 Completed [facility] of 00:00:00 [facility] HIB 4 Dose Schedule 2004-06-27 Completed Unive rsity of 00:00:00 [facility] MMR 2004-06-27 Completed [facility] of 00:00:00 [facility] Pneumococcal 7 2004-06-27 Completed [facility] of Conjugate, PCV7 00:00:00 [facility] [place] [facility]Prevnar[facility] DTAP 2004-06-27 Completed [facility] of 00:00:00 [facility] Varicella 2004-06-27 Completed [facility] of (varivax)(chicken pox) 00:00:00 [facility] HIB 4 Dose Schedule 2004-06-27 Completed Unive rsity of 00:00:00 [facility] DTAP 2004-06-27 Completed [facility] of 00:00:00 [facility] HIB 4 Dose Schedule 2004-06-27 Completed Unive rsity of 00:00:00 [facility] MMR 2004-06-27 Completed [facility] of 00:00:00 [facility] MMR 2004-06-27 Completed [facility] of 00:00:00 [facility] Pneumococcal 7 2004-06-27 Completed [facility] of Conjugate, PCV7 00:00:00 [facility] [place] [facility]ar[facility] Varicella 2004-06-27 Completed [facility] of (varivax)(chicken pox) 00:00:00 [facility] Pneumococcal 7 2004-06-27 Completed [facility] of Conjugate, PCV7 00:00:00 [facility] [place] [facility]vnar[facility] DTAP 2004-06-27 Completed [facility] of 00:00:00 [facility] HIB 4 Dose Schedule 2004-06-27 Completed Unive rsity of 00:00:00 [facility] MMR 2004-06-27 Completed [facility] of 00:00:00 [facility] Pneumococcal 7 2004-06-27 Completed [facility] of Conjugate, PCV7 00:00:00 [facility] [place] [facility]ar[facility] Varicella 2004-06-27 Completed [facility] of (varivax)(chicken pox) 00:00:00 [facility] Varicella 2004-06-27 Completed [facility] of (varivax)(chicken pox) 00:00:00 [facility] DTAP 2004-06-27 Completed [facility] of 00:00:00 [facility] HIB 4 Dose Schedule 2004-06-27 Completed Unive rsity of 00:00:00 [facility] MMR 2004-06-27 Completed [facility] of 00:00:00 [facility] Pneumococcal 7 2004-06-27 Completed [facility] of Conjugate, PCV7 00:00:00 [facility] [place] [facility]ar[facility] Varicella 2004-06-27 Completed [facility] of (varivax)(chicken pox) 00:00:00 [facility] DTAP 2004-06-27 Completed [facility] of 00:00:00 [facility] HIB 4 Dose Schedule 2004-06-27 Completed Unive rsity of 00:00:00 [facility] MMR 2004-06-27 Completed [facility] of 00:00:00 [facility] Pneumococcal 7 2004-06-27 Completed [facility] of Conjugate, PCV7 00:00:00 [facility] [place] [facility]ar[facility] Varicella 2004-06-27 Completed [facility] of (varivax)(chicken pox) 00:00:00 [facility] DTAP 2004-06-27 Completed [facility] of 00:00:00 [facility] HIB 4 Dose Schedule 2004-06-27 Completed Unive rsity of 00:00:00 [facility] MMR 2004-06-27 Completed [facility] of 00:00:00 [facility] Pneumococcal 7 2004-06-27 Completed [facility] of Conjugate, PCV7 00:00:00 [facility] ical (Prevnar7) Branch Varicella 2004-06-27 Completed [facility] (varivax)(chicken pox) 00:00:00 [facility] DTAP 2004-06-27 Completed [facility] 00:00:00 [facility] HIB 4 Dose Schedule 2004-06-27 Completed [facility] 00:00:00 [facility] MMR 2004-06-27 Completed [facility] 00:00:00 [facility] Pneumococcal 7 2004-06-27 Completed [facility] Conjugate, PCV7 00:00:00 [place] [facility] (Pre[facility] Varicella 2004-06-27 Completed [facility] (varivax)(chicken pox) 00:00:00 [facility] DTAP 2004-06-27 Completed [facility] 00:00:00 [facility] HIB 4 Dose Schedule 2004-06-27 Completed [facility] 00:00:00 [facility] MMR 2004-06-27 Completed [facility] 00:00:00 [facility] Pneumococcal 7 2004-06-27 Completed [facility] Conjugate, PCV7 00:00:00 [place] [facility] (Prevnar7) [facility] Varicella 2004-06-27 Completed [facility] (varivax)(chicken pox) 00:00:00 [facility] DTAP 2004-06-27 Completed [facility] 00:00:00 [facility] HIB 4 Dose Schedule 2004-06-27 Completed [facility] 00:00:00 [facility] MMR 2004-06-27 Completed [facility] 00:00:00 [facility] Pneumococcal 7 2004-06-27 Completed [facility] Conjugate, PCV7 00:00:00 [place] [facility] (Prevnar[facility] Varicella 2004-06-27 Completed [facility] (varivax)(chicken pox) 00:00:00 [facility] DTAP 2004-06-27 Completed [facility] 00:00:00 [facility] HIB 4 Dose Schedule 2004-06-27 Completed [facility] 00:00:00 [facility] MMR 2004-06-27 Completed [facility] 00:00:00 [facility] Pneumococcal 7 2004-06-27 Completed [facility] Conjugate, PCV7 00:00:00 [place] [facility] (Prevnar[facility]) [facility] Varicella 2004-06-27 Completed [facility] (varivax)(chicken pox) 00:00:00 [facility] DTAP 2004-06-27 Completed [facility] 00:00:00 [facility] DTAP 2004-06-27 Completed [facility] 00:00:00 [facility] HIB 4 Dose Schedule 2004-06-27 Completed [facility] of 00:00:00 [facility] MMR 2004-06-27 Completed [facility] 00:00:00 [facility] Pneumococcal 7 2004-06-27 Completed [facility] Conjugate, PCV7 00:00:00 [place] [facility] (Prevnar7) [facility] Varicella 2004-06-27 Completed [facility] (varivax)(chicken pox) 00:00:00 [facility] HIB 4 Dose Schedule 2004-06-27 Completed [facility] 00:00:00 [facility] MMR 2004-06-27 Completed [facility] 00:00:00 [facility] DTAP 2004-06-27 Completed [facility] 00:00:00 [facility] HIB 4 Dose Schedule 2004-06-27 Completed [facility] 00:00:00 [facility] MMR 2004-06-27 Completed [facility] 00:00:00 [facility] Pneumococcal 7 2004-06-27 Completed [facility] Conjugate, PCV7 00:00:00 [place] [facility] (Pre[facility] Pneumococcal 7 2004-06-27 Completed [facility] Conjugate, PCV7 00:00:00 [place] [facility] (Prevnar7) [facility] Varicella 2004-06-27 Completed [facility] (varivax)(chicken pox) 00:00:00 [facility] DTAP 2004-06-27 Completed [facility] 00:00:00 [facility] Varicella 2004-06-27 Completed [facility] (varivax)(chicken pox) 00:00:00 [facility] HIB 4 Dose Schedule 2004-06-27 Completed [facility] 00:00:00 [facility] MMR 2004-06-27 Completed [facility] 00:00:00 [facility] Pneumococcal 7 2004-06-27 Completed [facility] Conjugate, PCV7 00:00:00 [place] [facility] (Prevnar7[facility] Varicella 2004-06-27 Completed [facility] (varivax)(chicken pox) 00:00:00 [facility] DTAP 2004-06-27 Completed [facility] 00:00:00 [facility] HIB 4 Dose Schedule 2004-06-27 Completed [facility] of 00:00:00 [facility] MMR 2004-06-27 Completed [facility] 00:00:00 [facility] Pneumococcal 7 2004-06-27 Completed [facility] Conjugate, PCV7 00:00:00 [place] [facility] (Prevnar7) [facility] Varicella 2004-06-27 Completed [facility] (varivax)(chicken pox) 00:00:00 [facility] DTAP 2004-06-27 Completed [facility] 00:00:00 [facility] HIB 4 Dose Schedule 2004-06-27 Completed [facility] 00:00:00 [facility] MMR 2004-06-27 Completed [facility] 00:00:00 [facility] Pneumococcal 7 2004-06-27 Completed [facility] Conjugate, PCV7 00:00:00 [place] [facility] (Prevnar7) [facility] Varicella 2004-06-27 Completed [facility] (varivax)(chicken pox) 00:00:00 [facility] DTAP 2004-06-27 Completed [facility] 00:00:00 [facility] HIB 4 Dose Schedule 2004-06-27 Completed [facility] 00:00:00 [facility] MMR 2004-06-27 Completed [facility] 00:00:00 [facility] Pneumococcal 7 2004-06-27 Completed [facility] Conjugate, PCV7 00:00:00 [place] [facility] (Prevnar7) [facility] Varicella 2004-06-27 Completed [facility] (varivax)(chicken pox) 00:00:00 [facility] DTAP 2004-06-27 Completed [facility] 00:00:00 [facility] HIB 4 Dose Schedule 2004-06-27 Completed [facility] 00:00:00 [facility] MMR 2004-06-27 Completed [facility] 00:00:00 [facility] Pneumococcal 7 2004-06-27 Completed [facility] Conjugate, PCV7 00:00:00 [place] [facility] (Prevnar[facility] Varicella 2004-06-27 Completed [facility] (varivax)(chicken pox) 00:00:00 [facility] DTAP 2004-06-27 Completed [facility] 00:00:00 [facility] HIB 4 Dose Schedule 2004-06-27 Completed [facility] of 00:00:00 [facility] MMR 2004-06-27 Completed [facility] 00:00:00 [facility] Pneumococcal 7 2004-06-27 Completed [facility] Conjugate, PCV7 00:00:00 [place] [facility] (Prevnar7) [facility] Varicella 2004-06-27 Completed [facility] (varivax)(chicken pox) 00:00:00 [facility] DTAP 2004-06-27 Completed [facility] 00:00:00 [facility] HIB 4 Dose Schedule 2004-06-27 Completed [facility] of 00:00:00 [facility] MMR 2004-06-27 Completed [facility] 00:00:00 [facility] Pneumococcal 7 2004-06-27 Completed [facility] Conjugate, PCV7 00:00:00 [place] [facility] (Prevnar7) [facility] Varicella 2004-06-27 Completed [facility] (varivax)(chicken pox) 00:00:00 [facility] DTAP 2004-06-27 Completed [facility] 00:00:00 [facility] DTAP 2004-06-27 Completed [facility] 00:00:00 [facility] HIB 4 Dose Schedule 2004-06-27 Completed [facility] of 00:00:00 [facility] MMR 2004-06-27 Completed [facility] 00:00:00 [facility] Pneumococcal 7 2004-06-27 Completed [facility] Conjugate, PCV7 00:00:00 [place] [facility] (Prevnar7) [facility] Varicella 2004-06-27 Completed [facility] (varivax)(chicken pox) 00:00:00 [facility] HIB 4 Dose Schedule 2004-06-27 Completed [facility] 00:00:00 [facility] MMR 2004-06-27 Completed [facility] 00:00:00 [facility] Pneumococcal 7 2004-06-27 Completed [facility] Conjugate, PCV7 00:00:00 [place] [facility] (Prevnar7) [facility] DTAP 2004-06-27 Completed [facility] 00:00:00 [facility] HIB 4 Dose Schedule 2004-06-27 Completed [facility]ive [facility] of 00:00:00 [facility] MMR 2004-06-27 Completed [facility] 00:00:00 [facility] Pneumococcal 7 2004-06-27 Completed [facility] Conjugate, PCV7 00:00:00 [place] [facility] (Prevnar7) [facility] Varicella 2004-06-27 Completed [facility] (varivax)(chicken pox) 00:00:00 [facility] Varicella 2004-06-27 Completed [facility] (varivax)(chicken pox) 00:00:00 [facility] DTAP 2004-06-27 Completed [facility] 00:00:00 [facility] HIB 4 Dose Schedule 2004-06-27 Completed [facility] of 00:00:00 [facility] MMR 2004-06-27 Completed [facility] 00:00:00 [facility] Pneumococcal 7 2004-06-27 Completed [facility] Conjugate, PCV7 00:00:00 [place] [facility] (Prevnar7) [facility] Varicella 2004-06-27 Completed [facility] (varivax)(chicken pox) 00:00:00 [facility] DTAP 2004-06-27 Completed [facility] 00:00:00 [facility] HIB 4 Dose Schedule 2004-06-27 Completed [facility] 00:00:00 [facility] MMR 2004-06-27 Completed [facility] 00:00:00 [facility] Pneumococcal 7 2004-06-27 Completed [facility] Conjugate, PCV7 00:00:00 [place] [facility] (Prevnar7) [facility] Varicella 2004-06-27 Completed [facility] (varivax)(chicken pox) 00:00:00 [facility] DTAP 2004-06-27 Completed [facility] 00:00:00 [facility] HIB 4 Dose Schedule 2004-06-27 Completed [facility] of 00:00:00 [facility] MMR 2004-06-27 Completed [facility] 00:00:00 [facility] Pneumococcal 7 2004-06-27 Completed [facility] Conjugate, PCV7 00:00:00 [place] [facility] (Prevnar7) [facility] Varicella 2004-06-27 Completed [facility] (varivax)(chicken pox) 00:00:00 [facility] DTAP 2004-06-27 Completed [facility] 00:00:00 [facility] HIB 4 Dose Schedule 2004-06-27 Completed [facility] of 00:00:00 [facility] MMR 2004-06-27 Completed [facility] 00:00:00 [facility] Pneumococcal 7 2004-06-27 Completed [facility] Conjugate, PCV7 00:00:00 [place] [facility] (Prevnar7) [facility] Varicella 2004-06-27 Completed [facility] (varivax)(chicken pox) 00:00:00 [facility] DTAP 2004-06-27 Completed [facility] 00:00:00 [facility] HIB 4 Dose Schedule 2004-06-27 Completed [facility] 00:00:00 [facility] MMR 2004-06-27 Completed [facility] 00:00:00 [facility] Pneumococcal 7 2004-06-27 Completed [facility] Conjugate, PCV7 00:00:00 [place] [facility] (Prevnar7) [facility] Varicella 2004-06-27 Completed [facility] (varivax)(chicken pox) 00:00:00 [facility] DTAP 2004-06-27 Completed [facility] 00:00:00 [facility] HIB 4 Dose Schedule 2004-06-27 Completed [facility] of 00:00:00 [facility] MMR 2004-06-27 Completed [facility] 00:00:00 [facility] Pneumococcal 7 2004-06-27 Completed [facility] Conjugate, PCV7 00:00:00 [place] [facility] (Prevnar7) [facility] Varicella 2004-06-27 Completed [facility] (varivax)(chicken pox) 00:00:00 [facility] DTAP 2004-06-27 Completed [facility] 00:00:00 [facility] HIB 4 Dose Schedule 2004-06-27 Completed [facility] 00:00:00 [facility] MMR 2004-06-27 Completed [facility] 00:00:00 [facility] Pneumococcal 7 2004-06-27 Completed [facility] Conjugate, PCV7 00:00:00 [place] [facility] (Prevnar7) [facility] Varicella 2004-06-27 Completed [facility] (varivax)(chicken pox) 00:00:00 [facility] DTAP 2004-06-27 Completed [facility] 00:00:00 [facility] HIB 4 Dose Schedule 2004-06-27 Completed [facility] 00:00:00 [facility] MMR 2004-06-27 Completed [facility] 00:00:00 [facility] Pneumococcal 7 2004-06-27 Completed [facility] Conjugate, PCV7 00:00:00 [facility] (Prevnar7) [facility] Varicella 2004-06-27 Completed [facility] (varivax)(chicken pox) 00:00:00 [facility] DTAP 2004-06-27 Completed [facility] 00:00:00 [facility] HIB 4 Dose Schedule 2004-06-27 Completed [facility] of 00:00:00 [facility] MMR 2004-06-27 Completed [facility] 00:00:00 [facility] Pneumococcal 7 2004-06-27 Completed [facility] Conjugate, PCV7 00:00:00 [facility] (Prevnar7) Branch Varicella 2004-06-27 Completed [facility] (varivax)(chicken pox) 00:00:00 [facility] DTAP 2004-06-27 Completed [facility] 00:00:00 [facility] HIB 4 Dose Schedule 2004-06-27 Completed [facility] 00:00:00 [facility] DTAP 2004-06-27 Completed [facility] 00:00:00 [facility] HIB 4 Dose Schedule 2004-06-27 Completed [facility] of 00:00:00 [facility] MMR 2004-06-27 Completed [facility] 00:00:00 [facility] MMR 2004-06-27 Completed [facility] 00:00:00 [facility] Pneumococcal 7 2004-06-27 Completed [facility] Conjugate, PCV7 00:00:00 [place] [facility] (Prevnar7) [facility] Varicella 2004-06-27 Completed [facility] (varivax)(chicken pox) 00:00:00 [facility] Pneumococcal 7 2004-06-27 Completed [facility] Conjugate, PCV7 00:00:00 [place] [facility] (Prevnar7) [facility] DTAP 2004-06-27 Completed [facility] 00:00:00 [facility] HIB 4 Dose Schedule 2004-06-27 Completed [facility] 00:00:00 [facility] MMR 2004-06-27 Completed [facility] 00:00:00 [facility] Pneumococcal 7 2004-06-27 Completed [facility] Conjugate, PCV7 00:00:00 [place] [facility] (Prevnar7) [facility] Varicella 2004-06-27 Completed [facility] (varivax)(chicken pox) 00:00:00 [facility] Varicella 2004-06-27 Completed [facility] (varivax)(chicken pox) 00:00:00 [facility] DTAP 2004-06-27 Completed [facility] 00:00:00 [facility] HIB 4 Dose Schedule 2004-06-27 Completed [facility] 00:00:00 [facility] MMR 2004-06-27 Completed [facility] 00:00:00 [facility] Pneumococcal 7 2004-06-27 Completed [facility] Conjugate, PCV7 00:00:00 [place] [facility] (Prevnar7) [facility] Varicella 2004-06-27 Completed [facility] (varivax)(chicken pox) 00:00:00 [facility] DTAP 2004-06-27 Completed [facility] 00:00:00 [facility] HIB 4 Dose Schedule 2004-06-27 Completed [facility] 00:00:00 [facility] MMR 2004-06-27 Completed [facility] 00:00:00 [facility] Pneumococcal 7 2004-06-27 Completed [facility] Conjugate, PCV7 00:00:00 [place] [facility] (Prevnar7) [facility] Varicella 2004-06-27 Completed [facility] (varivax)(chicken pox) 00:00:00 [facility] DTAP 2004-06-27 Completed [facility] 00:00:00 [facility] HIB 4 Dose Schedule 2004-06-27 Completed [facility] 00:00:00 [facility] MMR 2004-06-27 Completed [facility] 00:00:00 [facility] Pneumococcal 7 2004-06-27 Completed [facility] Conjugate, PCV7 00:00:00 [place] [facility] (Prevnar7) [facility] Varicella 2004-06-27 Completed [facility] (varivax)(chicken pox) 00:00:00 [facility] DTAP 2004-06-27 Completed [facility] 00:00:00 [facility] HIB 4 Dose Schedule 2004-06-27 Completed [facility] 00:00:00 [facility] MMR 2004-06-27 Completed [facility] 00:00:00 [facility] Pneumococcal 7 2004-06-27 Completed [facility] Conjugate, PCV7 00:00:00 [place] [facility] (Prevnar7) [facility] Varicella 2004-06-27 Completed [facility] (varivax)(chicken pox) 00:00:00 [facility] DTAP 2004-06-27 Completed [facility] 00:00:00 [facility] HIB 4 Dose Schedule 2004-06-27 Completed [facility] 00:00:00 [facility] MMR 2004-06-27 Completed [facility] 00:00:00 [facility] Pneumococcal 7 2004-06-27 Completed [facility] Conjugate, PCV7 00:00:00 [place] [facility] (Prevnar7) [facility] Varicella 2004-06-27 Completed [facility] (varivax)(chicken pox) 00:00:00 [facility] DTAP 2004-06-27 Completed [facility] 00:00:00 [facility] HIB 4 Dose Schedule 2004-06-27 Completed [facility] 00:00:00 [facility] MMR 2004-06-27 Completed [facility] 00:00:00 [facility] Pneumococcal 7 2004-06-27 Completed [facility] Conjugate, PCV7 00:00:00 [place] [facility] (Prevnar7) [facility] Varicella 2004-06-27 Completed [facility] (varivax)(chicken pox) 00:00:00 [facility] DTAP 2004-06-27 Completed [facility] 00:00:00 [facility] HIB 4 Dose Schedule 2004-06-27 Completed [facility] 00:00:00 [facility] MMR 2004-06-27 Completed [facility] 00:00:00 [facility] Pneumococcal 7 2004-06-27 Completed [facility] Conjugate, PCV7 00:00:00 [place] [facility] (Prevnar7) [facility] Varicella 2004-06-27 Completed [facility] (varivax)(chicken pox) 00:00:00 [facility] DTAP 2004-06-27 Completed [facility] 00:00:00 [facility] HIB 4 Dose Schedule 2004-06-27 Completed [facility] 00:00:00 [facility] MMR 2004-06-27 Completed [facility] 00:00:00 [facility] Pneumococcal 7 2004-06-27 Completed [facility] Conjugate, PCV7 00:00:00 [place] [facility] (Prevnar7) [facility] Varicella 2004-06-27 Completed [facility] (varivax)(chicken pox) 00:00:00 [facility] DTAP 2004-06-27 Completed [facility] 00:00:00 [facility] HIB 4 Dose Schedule 2004-06-27 Completed [facility] of 00:00:00 [facility] DTAP 2004-06-27 Completed [facility] 00:00:00 [facility] HIB 4 Dose Schedule 2004-06-27 Completed [facility] of 00:00:00 [facility] MMR 2004-06-27 Completed [facility] 00:00:00 [facility] Pneumococcal 7 2004-06-27 Completed [facility] Conjugate, PCV7 00:00:00 [place] [facility] (Prevnar7) [facility] Varicella 2004-06-27 Completed [facility] (varivax)(chicken pox) 00:00:00 [facility] MMR 2004-06-27 Completed [facility] 00:00:00 [facility] Pneumococcal 7 2004-06-27 Completed [facility] Conjugate, PCV7 00:00:00 [place] [facility] (Prevnar7) [facility] DTAP 2004-06-27 Completed [facility] 00:00:00 [facility] HIB 4 Dose Schedule 2004-06-27 Completed [facility] of 00:00:00 [facility] MMR 2004-06-27 Completed [facility] 00:00:00 [facility] Pneumococcal 7 2004-06-27 Completed [facility] Conjugate, PCV7 00:00:00 [place] [facility] (Prevnar7) [facility] Varicella 2004-06-27 Completed [facility] (varivax)(chicken pox) 00:00:00 [facility] Varicella 2004-06-27 Completed [facility] (varivax)(chicken pox) 00:00:00 [facility] DTAP 2004-06-27 Completed [facility] 00:00:00 [facility] HIB 4 Dose Schedule 2004-06-27 Completed [facility] of 00:00:00 [facility] MMR 2004-06-27 Completed [facility] 00:00:00 [facility] Pneumococcal 7 2004-06-27 Completed [facility] Conjugate, PCV7 00:00:00 [place] [facility] (Prevnar7) [facility] Varicella 2004-06-27 Completed [facility] (varivax)(chicken pox) 00:00:00 [facility] DTAP 2004-06-27 Completed [facility] 00:00:00 [facility] HIB 4 Dose Schedule 2004-06-27 Completed [facility] of 00:00:00 [facility] MMR 2004-06-27 Completed [facility] 00:00:00 [facility] Pneumococcal 7 2004-06-27 Completed [facility] Conjugate, PCV7 00:00:00 [place] [facility] (Prevnar7) [facility] Varicella 2004-06-27 Completed [facility] (varivax)(chicken pox) 00:00:00 [facility] DTAP 2004-06-27 Completed [facility] 00:00:00 [facility] HIB 4 Dose Schedule 2004-06-27 Completed [facility] of 00:00:00 [facility] MMR 2004-06-27 Completed [facility] 00:00:00 [facility] Pneumococcal 7 2004-06-27 Completed [facility] Conjugate, PCV7 00:00:00 [place] [facility] (Prevnar7) [facility] Varicella 2004-06-27 Completed [facility] (varivax)(chicken pox) 00:00:00 [facility] DTAP 2004-06-27 Completed [facility] 00:00:00 [facility] HIB 4 Dose Schedule 2004-06-27 Completed [facility] 00:00:00 [facility] MMR 2004-06-27 Completed [facility] 00:00:00 [facility] Pneumococcal 7 2004-06-27 Completed [facility] Conjugate, PCV7 00:00:00 [place] [facility] (Prevnar7) [facility] Varicella 2004-06-27 Completed [facility] (varivax)(chicken pox) 00:00:00 [facility] DTAP 2004-06-27 Completed [facility] 00:00:00 [facility] HIB 4 Dose Schedule 2004-06-27 Completed [facility] 00:00:00 [facility] MMR 2004-06-27 Completed [facility] 00:00:00 [facility] Pneumococcal 7 2004-06-27 Completed [facility] Conjugate, PCV7 00:00:00 [place] [facility] (Prevnar7) [facility] Varicella 2004-06-27 Completed [facility] (varivax)(chicken pox) 00:00:00 [facility] DTAP 2004-06-27 Completed [facility] 00:00:00 [facility] HIB 4 Dose Schedule 2004-06-27 Completed [facility] 00:00:00 [facility] MMR 2004-06-27 Completed [facility] 00:00:00 [facility] Pneumococcal 7 2004-06-27 Completed [facility] Conjugate, PCV7 00:00:00 [place] [facility] (Prevnar7) [facility] Varicella 2004-06-27 Completed [facility] (varivax)(chicken pox) 00:00:00 [facility] DTAP 2004-06-27 Completed [facility] 00:00:00 [facility] HIB 4 Dose Schedule 2004-06-27 Completed [facility] 00:00:00 [facility] MMR 2004-06-27 Completed [facility] 00:00:00 [facility] Pneumococcal 7 2004-06-27 Completed [facility] Conjugate, PCV7 00:00:00 [place] [facility] (Prevnar7) [facility] Varicella 2004-06-27 Completed [facility] (varivax)(chicken pox) 00:00:00 [facility] DTAP 2004-06-27 Completed [facility] 00:00:00 [facility] HIB 4 Dose Schedule 2004-06-27 Completed [facility] 00:00:00 [facility] MMR 2004-06-27 Completed [facility] 00:00:00 [facility] Pneumococcal 7 2004-06-27 Completed [facility] Conjugate, PCV7 00:00:00 [place] [facility] (Prevnar7) [facility] Varicella 2004-06-27 Completed [facility] (varivax)(chicken pox) 00:00:00 [facility] DTAP 2004-06-27 Completed [facility] 00:00:00 [facility] HIB 4 Dose Schedule 2004-06-27 Completed [facility] 00:00:00 [facility] MMR 2004-06-27 Completed [facility] 00:00:00 [facility] [facility] Pneumococcal 7 2004-06-27 Completed University of Conjugate, PCV7 00:00:00 [place] [facility] (Prevnar7) [facility] Varicella 2004-06-27 Completed University of (varivax)(chicken pox) 00:00:00 [facility] DTAP 2004-06-27 Completed University of 00:00:00 [facility] HIB 4 Dose Schedule 2004-06-27 Completed Unive rsity of 00:00:00 [facility] MMR 2004-06-27 Completed [facility] of 00:00:00 [facility] Pneumococcal 7 2004-06-27 Completed [facility] of Conjugate, PCV7 00:00:00 [facility] [place] [facility] (Prevnar7) [facility] Varicella 2004-06-27 Completed [facility] (varivax)(chicken pox) 00:00:00 [facility] DTAP 2004-06-27 Completed [facility] of 00:00:00 [facility] HIB 4 Dose Schedule 2004-06-27 Completed [facility]ive [facility] of 00:00:00 [facility] MMR 2004-06-27 Completed [facility] of 00:00:00 [facility] Pneumococcal 7 2004-06-27 Completed [facility] Conjugate, PCV7 00:00:00 [facility] [place] [facility] (Prevnar[facility] Varicella 2004-06-27 Completed [facility] (varivax)(chicken pox) 00:00:00 [facility] DTAP 2004-06-27 Completed [facility] 00:00:00 [facility] HIB 4 Dose Schedule 2004-06-27 Completed [facility]ive [facility] of 00:00:00 [facility] MMR 2004-06-27 Completed [facility] 00:00:00 [facility] Pneumococcal 7 2004-06-27 Completed [facility] Conjugate, PCV7 00:00:00 [facility] [place] [facility] (Prevnar[facility] Varicella 2004-06-27 Completed [facility] (varivax)(chicken pox) 00:00:00 [facility] DTAP 2004-06-27 Completed [facility] of 00:00:00 [facility] HIB 4 Dose Schedule 2004-06-27 Completed [facility]ive rs[facility] of 00:00:00 [facility] MMR 2004-06-27 Completed [facility] of 00:00:00 [facility] Pneumococcal 7 2004-06-27 Completed [facility] Conjugate, PCV7 00:00:00 [facility] [place] [facility] (Prevnar7[facility] DTAP 2004-06-27 Completed [facility] 00:00:00 [facility] HIB 4 Dose Schedule 2004-06-27 Completed Unive rsity of 00:00:00 [facility] MMR 2004-06-27 Completed [facility] of 00:00:00 [facility] Pneumococcal 7 2004-06-27 Completed [facility] Conjugate, PCV7 00:00:00 [facility] [place] [facility] (Prevnar[facility]) [facility] Varicella 2004-06-27 Completed [facility] (varivax)(chicken pox) 00:00:00 [facility] Varicella 2004-06-27 Completed [facility] (varivax)(chicken pox) 00:00:00 [facility] DTAP 2004-06-27 Completed [facility] of 00:00:00 [facility] HIB 4 Dose Schedule 2004-06-27 Completed [facility]ive rsity of 00:00:00 [facility] MMR 2004-06-27 Completed [facility] of 00:00:00 [facility] Pneumococcal 7 2004-06-27 Completed [facility] Conjugate, PCV7 00:00:00 [facility] [place] [facility] (Prevnar7) [facility] Varicella 2004-06-27 Completed [facility] (varivax)(chicken pox) 00:00:00 [facility] DTAP 2004-06-27 Completed [facility] of 00:00:00 [facility] HIB 4 Dose Schedule 2004-06-27 Completed [facility]ive rsity of 00:00:00 [facility] MMR 2004-06-27 Completed [facility] 00:00:00 [facility] Pneumococcal 7 2004-06-27 Completed [facility] Conjugate, PCV7 00:00:00 [facility] [place] [facility] (Prevnar7) [facility] Varicella 2004-06-27 Completed [facility] (varivax)(chicken pox) 00:00:00 [facility] DTAP 2004-06-27 Completed [facility] 00:00:00 [facility] HIB 4 Dose Schedule 2004-06-27 Completed [facility]ive rsity of 00:00:00 [facility] MMR 2004-06-27 Completed [facility] 00:00:00 [facility] Pneumococcal 7 2004-06-27 Completed [facility] Conjugate, PCV7 00:00:00 [facility] [place] [facility] (Prevnar7) [facility] Varicella 2004-06-27 Completed [facility] (varivax)(chicken pox) 00:00:00 [facility] DTAP 2004-06-27 Completed [facility] of 00:00:00 [facility] HIB 4 Dose Schedule 2004-06-27 Completed [facility]ive rsity of 00:00:00 [facility] MMR 2004-06-27 Completed [facility] of 00:00:00 [facility] Pneumococcal 7 2004-06-27 Completed [facility] Conjugate, PCV7 00:00:00 [place] [facility] (Prevnar7) [facility] Varicella 2004-06-27 Completed [facility] (varivax)(chicken pox) 00:00:00 [facility] DTAP 2004-06-27 Completed [facility] of 00:00:00 [facility] HIB 4 Dose Schedule 2004-06-27 Completed [facility]ive rsity of 00:00:00 [facility] MMR 2004-06-27 Completed [facility] of 00:00:00 [facility] Pneumococcal 7 2004-06-27 Completed [facility] Conjugate, PCV7 00:00:00 [facility] [place] [facility] (Prevnar7) [facility] Varicella 2004-06-27 Completed [facility] (varivax)(chicken pox) 00:00:00 [facility] DTAP 2004-06-27 Completed [facility] of 00:00:00 [facility] HIB 4 Dose Schedule 2004-06-27 Completed [facility]ive rs[facility] of 00:00:00 [facility] MMR 2004-06-27 Completed [facility] 00:00:00 [facility] Pneumococcal 7 2004-06-27 Completed [facility] Conjugate, PCV7 00:00:00 [facility] [place] [facility] (Prevnar7[facility] Varicella 2004-06-27 Completed [facility] (varivax)(chicken pox) 00:00:00 [facility] DTAP 2004-06-27 Completed [facility] of 00:00:00 [facility] HIB 4 Dose Schedule 2004-06-27 Completed [facility]ive rsity of 00:00:00 [facility] MMR 2004-06-27 Completed [facility] of 00:00:00 [facility] Pneumococcal 7 2004-06-27 Completed [facility] Conjugate, PCV7 00:00:00 [facility] [place] [facility] (Prevnar7) [facility] Varicella 2004-06-27 Completed [facility] (varivax)(chicken pox) 00:00:00 [facility] DTAP 2004-06-27 Completed [facility] of 00:00:00 [facility] HIB 4 Dose Schedule 2004-06-27 Completed [facility]ive rsity of 00:00:00 [facility] MMR 2004-06-27 Completed [facility] of 00:00:00 [facility] Pneumococcal 7 2004-06-27 Completed [facility] Conjugate, PCV7 00:00:00 [facility] [place] [facility] (Prevnar7[facility] DTAP 2004-06-27 Completed [facility] 00:00:00 [facility] Varicella 2004-06-27 Completed [facility] (varivax)(chicken pox) 00:00:00 [facility] HIB 4 Dose Schedule 2004-06-27 Completed Unive rsity of 00:00:00 [facility] MMR 2004-06-27 Completed [facility] of 00:00:00 [facility] Pneumococcal 7 2004-06-27 Completed [facility] Conjugate, PCV7 00:00:00 [facility] [place] [facility] (Prevnar7[facility] Varicella 2004-06-27 Completed [facility] (varivax)(chicken pox) 00:00:00 [facility] DTAP 2004-06-27 Completed [facility] of 00:00:00 [facility] HIB 4 Dose Schedule 2004-06-27 Completed [facility]ive rsity of 00:00:00 [facility] MMR 2004-06-27 Completed [facility] 00:00:00 [facility] Pneumococcal 7 2004-06-27 Completed [facility] Conjugate, PCV7 00:00:00 [facility] [place] [facility] (Prevnar7) [facility] Varicella 2004-06-27 Completed [facility] (varivax)(chicken pox) 00:00:00 [facility] DTAP 2004-06-27 Completed [facility] of 00:00:00 [facility] HIB 4 Dose Schedule 2004-06-27 Completed [facility]ive rsity of 00:00:00 [facility] MMR 2004-06-27 Completed [facility] 00:00:00 [facility] Pneumococcal 7 2004-06-27 Completed [facility] Conjugate, PCV7 00:00:00 [facility] [place] [facility] (Prevnar7) [facility] Varicella 2004-06-27 Completed [facility] (varivax)(chicken pox) 00:00:00 [facility] DTAP 2004-06-27 Completed [facility] of 00:00:00 [facility] HIB 4 Dose Schedule 2004-06-27 Completed [facility]ive rsity of 00:00:00 [facility] MMR 2004-06-27 Completed [facility] 00:00:00 [facility] Pneumococcal 7 2004-06-27 Completed [facility] Conjugate, PCV7 00:00:00 [facility] [place] [facility] (Prevnar7[facility] Varicella 2004-06-27 Completed [facility] (varivax)(chicken pox) 00:00:00 [facility] DTAP 2004-06-27 Completed [facility] of 00:00:00 [facility] HIB 4 Dose Schedule 2004-06-27 Completed [facility]ive rsity of 00:00:00 [facility] MMR 2004-06-27 Completed [facility] 00:00:00 [facility] Pneumococcal 7 2004-06-27 Completed [facility] Conjugate, PCV7 00:00:00 [facility] [place] [facility] (Prevnar7) [facility] Varicella 2004-06-27 Completed [facility] (varivax)(chicken pox) 00:00:00 [facility] DTAP 2004-06-27 Completed [facility] of 00:00:00 [facility] HIB 4 Dose Schedule 2004-06-27 Completed Unive rsity of 00:00:00 [facility] MMR 2004-06-27 Completed [facility] 00:00:00 [facility] Pneumococcal 7 2004-06-27 Completed [facility] Conjugate, PCV7 00:00:00 [facility] (Prevnar7) [facility] Varicella 2004-06-27 Completed [facility] (varivax)(chicken pox) 00:00:00 [facility] DTAP 2004-06-27 Completed [facility] 00:00:00 [facility] HIB 4 Dose Schedule 2004-06-27 Completed [facility]ive rsity of 00:00:00 [facility] MMR 2004-06-27 Completed [facility] 00:00:00 [facility] Pneumococcal 7 2004-06-27 Completed [facility] Conjugate, PCV7 00:00:00 [facility] [place] [facility] (Prevnar7) [facility] Varicella 2004-06-27 Completed [facility] (varivax)(chicken pox) 00:00:00 [facility] DTAP 2004-06-27 Completed [facility] 00:00:00 [facility] HIB 4 Dose Schedule 2004-06-27 Completed [facility]ive rsity of 00:00:00 [facility] MMR 2004-06-27 Completed [facility] 00:00:00 [facility] Pneumococcal 7 2004-06-27 Completed [facility] Conjugate, PCV7 00:00:00 [facility] [place] [facility] (Prevnar7) [facility] Varicella 2004-06-27 Completed [facility] (varivax)(chicken pox) 00:00:00 [facility] DTAP 2004-06-27 Completed [facility] 00:00:00 [facility] HIB 4 Dose Schedule 2004-06-27 Completed [facility]ive [facility]ity of 00:00:00 [facility] MMR 2004-06-27 Completed [facility] 00:00:00 [facility] Pneumococcal 7 2004-06-27 Completed [facility] Conjugate, PCV7 00:00:00 [facility] (Prevnar7) [facility] Varicella 2004-06-27 Completed [facility] (varivax)(chicken pox) 00:00:00 [facility] Hep B, Adol or Pedi 2004-04-27 Completed Unive rsity of Dosage 00:00:00 [facility] Hep B, Adol or Pedi 2004-04-27 Completed [facility]ive [facility] of Dosage 00:00:00 [facility] Hep B, Adol or Pedi 2004-04-27 Completed [facility]ive [facility] of Dosage 00:00:00 [facility] Hep B, Adol or Pedi 2004-04-27 Completed [facility]ive [facility] of Dosage 00:00:00 [facility] Hep B, Adol or Pedi 2004-04-27 Completed [facility]ive [facility] of Dosage 00:00:00 [facility] Hep B, Adol or Pedi 2004-04-27 Completed [facility] of Dosage 00:00:00 [facility] Hep B, Adol or Pedi 2004-04-27 Completed [facility] of Dosage 00:00:00 [facility] Hep B, Adol or Pedi 2004-04-27 Completed [facility] of Dosage 00:00:00 [facility] Hep B, Adol or Pedi 2004-04-27 Completed [facility]ive [facility] of Dosage 00:00:00 [facility] Hep B, Adol or Pedi 2004-04-27 Completed [facility] of Dosage 00:00:00 [facility] Hep B, Adol or Pedi 2004-04-27 Completed [facility] of Dosage 00:00:00 [facility] Hep B, Adol or Pedi 2004-04-27 Completed [facility] of Dosage 00:00:00 [facility] Hep B, Adol or Pedi 2004-04-27 Completed [facility] of Dosage 00:00:00 [facility] Hep B, Adol or Pedi 2004-04-27 Completed [facility] of Dosage 00:00:00 [facility] Hep B, Adol or Pedi 2004-04-27 Completed [facility] of Dosage 00:00:00 [facility] Hep B, Adol or Pedi 2004-04-27 Completed [facility] of Dosage 00:00:00 [facility] Hep B, Adol or Pedi 2004-04-27 Completed [facility] of Dosage 00:00:00 [facility] Hep B, Adol or Pedi [...] rsity of Dosage 00:00:00 [facility] DTAP 2004-01-13 Completed [facility] 00:00:00 [facility] HIB 4 Dose Schedule 2004-01-13 Completed [facility] 00:00:00 [facility] Polio (IPV/OPV) 2004-01-13 Completed Univers[facility] y of 00:00:00 [facility] DTAP 2004-01-13 Completed [facility] 00:00:00 [facility] HIB 4 Dose Schedule 2004-01-13 Completed [facility]ive [facility] of 00:00:00 [facility] Polio (IPV/OPV) 2004-01-13 Completed Universit y of 00:00:00 [facility] DTAP 2004-01-13 Completed [facility] 00:00:00 [facility] DTAP 2004-01-13 Completed [facility] 00:00:00 [facility] HIB 4 Dose Schedule 2004-01-13 Completed [facility]ive rsity of 00:00:00 [facility] HIB 4 Dose Schedule 2004-01-13 Completed [facility] rs[facility] of 00:00:00 [facility] Polio (IPV/OPV) 2004-01-13 Completed Univers[facility] y of 00:00:00 [facility] DTAP 2004-01-13 Completed [facility] 00:00:00 [facility] HIB 4 Dose Schedule 2004-01-13 Completed [facility]ive [facility] of 00:00:00 [facility] Polio (IPV/OPV) 2004-01-13 Completed [facility] y of 00:00:00 [facility] Polio (IPV/OPV) 2004-01-13 Completed [facility] y of 00:00:00 [facility] DTAP 2004-01-13 Completed [facility] 00:00:00 [facility] HIB 4 Dose Schedule 2004-01-13 Completed [facility]ive rsity of 00:00:00 [facility] Polio (IPV/OPV) 2004-01-13 Completed Univers[facility] y of 00:00:00 [facility] DTAP 2004-01-13 Completed [facility] 00:00:00 [facility] HIB 4 Dose Schedule 2004-01-13 Completed [facility]ive rsity of 00:00:00 [facility] Polio (IPV/OPV) 2004-01-13 Completed Univers[facility] y of 00:00:00 [facility] DTAP 2004-01-13 Completed [facility] 00:00:00 [facility] HIB 4 Dose Schedule 2004-01-13 Completed [facility]ive rsity of 00:00:00 [facility] Polio (IPV/OPV) 2004-01-13 Completed Universit y of 00:00:00 [facility] DTAP 2004-01-13 Completed [facility] 00:00:00 [facility] HIB 4 Dose Schedule 2004-01-13 Completed [facility]ive rsity of 00:00:00 [facility] Polio (IPV/OPV) 2004-01-13 Completed [facility] y of 00:00:00 [facility] DTAP 2004-01-13 Completed [facility] 00:00:00 [facility] HIB 4 Dose Schedule 2004-01-13 Completed [facility]ive rsity of 00:00:00 [facility] Polio (IPV/OPV) 2004-01-13 Completed [facility] y of 00:00:00 [facility] DTAP 2004-01-13 Completed [facility] 00:00:00 [facility] HIB 4 Dose Schedule 2004-01-13 Completed [facility]ive rsity of 00:00:00 [facility] Polio (IPV/OPV) 2004-01-13 Completed [facility] y of 00:00:00 [facility] DTAP 2004-01-13 Completed [facility] 00:00:00 [facility] DTAP 2004-01-13 Completed [facility] 00:00:00 [facility] HIB 4 Dose Schedule 2004-01-13 Completed [facility]ive rsity of 00:00:00 [facility] Polio (IPV/OPV) 2004-01-13 Completed [facility] y of 00:00:00 [facility] HIB 4 Dose Schedule 2004-01-13 Completed [facility] rsity of 00:00:00 [facility] DTAP 2004-01-13 Completed [facility] 00:00:00 [facility] HIB 4 Dose Schedule 2004-01-13 Completed [facility] of 00:00:00 [facility] Polio (IPV/OPV) 2004-01-13 Completed [facility] y of 00:00:00 [facility] DTAP 2004-01-13 Completed [facility] 00:00:00 [facility] HIB 4 Dose Schedule 2004-01-13 Completed [facility]ive [facility]ity of 00:00:00 [facility] Polio (IPV/OPV) 2004-01-13 Completed [facility] y [facility] 00:00:00 [facility] Polio (IPV/OPV) 2004-01-13 Completed Universit y of 00:00:00 [facility] DTAP 2004-01-13 Completed [facility] 00:00:00 [facility] HIB 4 Dose Schedule 2004-01-13 Completed [facility] 00:00:00 [facility] Polio (IPV/OPV) 2004-01-13 Completed [facility] y of 00:00:00 [facility] DTAP 2004-01-13 Completed [facility] 00:00:00 [facility] HIB 4 Dose Schedule 2004-01-13 Completed [facility] 00:00:00 [facility] Polio (IPV/OPV) 2004-01-13 Completed [facility] y of 00:00:00 [facility] DTAP 2004-01-13 Completed [facility] 00:00:00 [facility] HIB 4 Dose Schedule 2004-01-13 Completed [facility]ive rsity of 00:00:00 [facility] Polio (IPV/OPV) 2004-01-13 Completed Univers[facility] y of 00:00:00 [facility] DTAP 2004-01-13 Completed [facility] 00:00:00 [facility] HIB 4 Dose Schedule 2004-01-13 Completed [facility]ive rsity of 00:00:00 [facility] Polio (IPV/OPV) 2004-01-13 Completed [facility] of 00:00:00 [facility] DTAP 2004-01-13 Completed [facility] 00:00:00 [facility] HIB 4 Dose Schedule 2004-01-13 Completed Unive rsity of 00:00:00 [facility] Polio (IPV/OPV) 2004-01-13 Completed [facility] y of 00:00:00 [facility] DTAP 2004-01-13 Completed [facility] 00:00:00 [facility] HIB 4 Dose Schedule 2004-01-13 Completed [facility]ive rsity of 00:00:00 [facility] Polio (IPV/OPV) 2004-01-13 Completed [facility] of 00:00:00 [facility] DTAP 2004-01-13 Completed [facility] 00:00:00 [facility] HIB 4 Dose Schedule 2004-01-13 Completed [facility]ive rsity of 00:00:00 [facility] Polio (IPV/OPV) 2004-01-13 Completed [facility] of 00:00:00 [facility] DTAP 2004-01-13 Completed [facility] 00:00:00 [facility] DTAP 2004-01-13 Completed [facility] 00:00:00 [facility] HIB 4 Dose Schedule 2004-01-13 Completed Unive rsity of 00:00:00 [facility] Polio (IPV/OPV) 2004-01-13 Completed [facility] of 00:00:00 [facility] HIB 4 Dose Schedule 2004-01-13 Completed [facility]ive rs[facility] of 00:00:00 [facility] DTAP 2004-01-13 Completed [facility] 00:00:00 [facility] HIB 4 Dose Schedule 2004-01-13 Completed Unive rsity of 00:00:00 [facility] Polio (IPV/OPV) 2004-01-13 Completed [facility] of 00:00:00 [facility] Polio (IPV/OPV) 2004-01-13 Completed [facility] of 00:00:00 [facility] DTAP 2004-01-13 Completed [facility] 00:00:00 [facility] HIB 4 Dose Schedule 2004-01-13 Completed [facility] rsity of 00:00:00 [facility] Polio (IPV/OPV) 2004-01-13 Completed [facility] of 00:00:00 [facility] DTAP 2004-01-13 Completed [facility] 00:00:00 [facility] HIB 4 Dose Schedule 2004-01-13 Completed [facility]ive rsity of 00:00:00 [facility] Polio (IPV/OPV) 2004-01-13 Completed [facility] of 00:00:00 [facility] DTAP 2004-01-13 Completed [facility] 00:00:00 [facility] HIB 4 Dose Schedule 2004-01-13 Completed [facility]ive rsity of 00:00:00 [facility] Polio (IPV/OPV) 2004-01-13 Completed [facility] of 00:00:00 [facility] DTAP 2004-01-13 Completed [facility] 00:00:00 [facility] HIB 4 Dose Schedule 2004-01-13 Completed [facility]ive rsity of 00:00:00 [facility] Polio (IPV/OPV) 2004-01-13 Completed [facility] 00:00:00 [facility] DTAP 2004-01-13 Completed [facility] 00:00:00 [facility] HIB 4 Dose Schedule 2004-01-13 Completed [facility]ity of 00:00:00 [facility] Polio (IPV/OPV) 2004-01-13 Completed [facility] of 00:00:00 [facility] DTAP 2004-01-13 Completed [facility] 00:00:00 [facility] HIB 4 Dose Schedule 2004-01-13 Completed [facility]ive rsity of 00:00:00 [facility] Polio (IPV/OPV) 2004-01-13 Completed [facility] 00:00:00 [facility] DTAP 2004-01-13 Completed [facility] 00:00:00 [facility] HIB 4 Dose Schedule 2004-01-13 Completed [facility]ive rsity of 00:00:00 [facility] Polio (IPV/OPV) 2004-01-13 Completed [facility] 00:00:00 [facility] DTAP 2004-01-13 Completed [facility] 00:00:00 [facility] DTAP 2004-01-13 Completed [facility] 00:00:00 [facility] HIB 4 Dose Schedule 2004-01-13 Completed [facility] of 00:00:00 [facility] HIB 4 Dose Schedule 2004-01-13 Completed [facility] of 00:00:00 [facility] Polio (IPV/OPV) 2004-01-13 Completed [facility] 00:00:00 [facility] DTAP 2004-01-13 Completed [facility] 00:00:00 [facility] HIB 4 Dose Schedule 2004-01-13 Completed [facility] of 00:00:00 [facility] Polio (IPV/OPV) 2004-01-13 Completed [facility] 00:00:00 [facility] Polio (IPV/OPV) 2004-01-13 Completed [facility] 00:00:00 [facility] DTAP 2004-01-13 Completed [facility] 00:00:00 [facility] HIB 4 Dose Schedule 2004-01-13 Completed [facility] of 00:00:00 [facility] Polio (IPV/OPV) 2004-01-13 Completed [facility] 00:00:00 [facility] DTAP 2004-01-13 Completed [facility] 00:00:00 [facility] HIB 4 Dose Schedule 2004-01-13 Completed [facility] of 00:00:00 [facility] Polio (IPV/OPV) 2004-01-13 Completed [facility] 00:00:00 [facility] DTAP 2004-01-13 Completed [facility] 00:00:00 [facility] HIB 4 Dose Schedule 2004-01-13 Completed [facility] of 00:00:00 [facility] Polio (IPV/OPV) 2004-01-13 Completed [facility] 00:00:00 [facility] DTAP 2004-01-13 Completed [facility] 00:00:00 [facility] HIB 4 Dose Schedule 2004-01-13 Completed [facility] of 00:00:00 [facility] Polio (IPV/OPV) 2004-01-13 Completed [facility] 00:00:00 [facility] DTAP 2004-01-13 Completed [facility] 00:00:00 [facility] HIB 4 Dose Schedule 2004-01-13 Completed [facility] 00:00:00 [facility] Polio (IPV/OPV) 2004-01-13 Completed [facility] 00:00:00 [facility] DTAP 2004-01-13 Completed [facility] 00:00:00 [facility] HIB 4 Dose Schedule 2004-01-13 Completed [facility] 00:00:00 [facility] Polio (IPV/OPV) 2004-01-13 Completed [facility] 00:00:00 [facility] DTAP 2004-01-13 Completed [facility] 00:00:00 [facility] HIB 4 Dose Schedule 2004-01-13 Completed [facility] 00:00:00 [facility] Polio (IPV/OPV) 2004-01-13 Completed [facility] 00:00:00 [facility] DTAP 2004-01-13 Completed [facility] 00:00:00 [facility] HIB 4 Dose Schedule 2004-01-13 Completed [facility] 00:00:00 [facility] Polio (IPV/OPV) 2004-01-13 Completed [facility] 00:00:00 [facility] DTAP 2004-01-13 Completed [facility] 00:00:00 [facility] DTAP 2004-01-13 Completed [facility] 00:00:00 [facility] HIB 4 Dose Schedule 2004-01-13 Completed [facility] 00:00:00 [facility] Polio (IPV/OPV) 2004-01-13 Completed [facility] 00:00:00 [facility] HIB 4 Dose Schedule 2004-01-13 Completed [facility] 00:00:00 [facility] DTAP 2004-01-13 Completed [facility] 00:00:00 [facility] HIB 4 Dose Schedule 2004-01-13 Completed [facility] 00:00:00 [facility] Polio (IPV/OPV) 2004-01-13 Completed [facility] 00:00:00 [facility] DTAP 2004-01-13 Completed [facility] 00:00:00 [facility] Polio (IPV/OPV) 2004-01-13 Completed [facility] 00:00:00 [facility] HIB 4 Dose Schedule 2004-01-13 Completed [facility] 00:00:00 [facility] Polio (IPV/OPV) 2004-01-13 Completed [facility] 00:00:00 [facility] DTAP 2004-01-13 Completed [facility] 00:00:00 [facility] HIB 4 Dose Schedule 2004-01-13 Completed [facility] 00:00:00 [facility] Polio (IPV/OPV) 2004-01-13 Completed [facility] 00:00:00 [facility] DTAP 2004-01-13 Completed [facility] 00:00:00 [facility] HIB 4 Dose Schedule 2004-01-13 Completed [facility] 00:00:00 [facility] Polio (IPV/OPV) 2004-01-13 Completed [facility] 00:00:00 [facility] DTAP 2004-01-13 Completed [facility] 00:00:00 [facility] HIB 4 Dose Schedule 2004-01-13 Completed [facility] 00:00:00 [facility] Polio (IPV/OPV) 2004-01-13 Completed [facility] 00:00:00 [facility] DTAP 2004-01-13 Completed [facility] 00:00:00 [facility] HIB 4 Dose Schedule 2004-01-13 Completed [facility] 00:00:00 [facility] Polio (IPV/OPV) 2004-01-13 Completed [facility] 00:00:00 [facility] DTAP 2004-01-13 Completed [facility] 00:00:00 [facility] HIB 4 Dose Schedule 2004-01-13 Completed [facility] 00:00:00 [facility] Polio (IPV/OPV) 2004-01-13 Completed [facility] 00:00:00 [facility] DTAP 2004-01-13 Completed [facility] 00:00:00 [facility] HIB 4 Dose Schedule 2004-01-13 Completed [facility] 00:00:00 [facility] Polio (IPV/OPV) 2004-01-13 Completed [facility] 00:00:00 [facility] DTAP 2004-01-13 Completed [facility] 00:00:00 [facility] HIB 4 Dose Schedule 2004-01-13 Completed [facility] 00:00:00 [facility] Polio (IPV/OPV) 2004-01-13 Completed [facility] 00:00:00 [facility] DTAP 2004-01-13 Completed [facility] 00:00:00 [facility] HIB 4 Dose Schedule 2004-01-13 Completed [facility] 00:00:00 [facility] DTAP 2004-01-13 Completed [facility] 00:00:00 [facility] Polio (IPV/OPV) 2004-01-13 Completed [facility] 00:00:00 [facility] HIB 4 Dose Schedule 2004-01-13 Completed [facility] 00:00:00 [facility] DTAP 2004-01-13 Completed [facility] 00:00:00 [facility] HIB 4 Dose Schedule 2004-01-13 Completed [facility] 00:00:00 [facility] Polio (IPV/OPV) 2004-01-13 Completed [facility] 00:00:00 [facility] DTAP 2004-01-13 Completed [facility] 00:00:00 [facility] Polio (IPV/OPV) 2004-01-13 Completed [facility] 00:00:00 [facility] HIB 4 Dose Schedule 2004-01-13 Completed [facility] 00:00:00 [facility] Polio (IPV/OPV) 2004-01-13 Completed [facility] 00:00:00 [facility] DTAP 2004-01-13 Completed [facility] 00:00:00 [facility] HIB 4 Dose Schedule 2004-01-13 Completed [facility] 00:00:00 [facility] Polio (IPV/OPV) 2004-01-13 Completed [facility] 00:00:00 [facility] DTAP 2004-01-13 Completed [facility] 00:00:00 [facility] HIB 4 Dose Schedule 2004-01-13 Completed [facility] 00:00:00 [facility] Polio (IPV/OPV) 2004-01-13 Completed [facility] 00:00:00 [facility] DTAP 2004-01-13 Completed [facility] 00:00:00 [facility] HIB 4 Dose Schedule 2004-01-13 Completed [facility] 00:00:00 [facility] Polio (IPV/OPV) 2004-01-13 Completed [facility] 00:00:00 [facility] DTAP 2004-01-13 Completed [facility] 00:00:00 [facility] HIB 4 Dose Schedule 2004-01-13 Completed [facility] 00:00:00 [facility] Polio (IPV/OPV) 2004-01-13 Completed [facility] 00:00:00 [facility] DTAP 2004-01-13 Completed [facility] 00:00:00 [facility] HIB 4 Dose Schedule 2004-01-13 Completed [facility] 00:00:00 [facility] Polio (IPV/OPV) 2004-01-13 Completed [facility] 00:00:00 [facility] DTAP 2004-01-13 Completed [facility] 00:00:00 [facility] HIB 4 Dose Schedule 2004-01-13 Completed [facility] 00:00:00 [facility] Polio (IPV/OPV) 2004-01-13 Completed [facility] 00:00:00 [facility] DTAP 2004-01-13 Completed [facility] 00:00:00 [facility] HIB 4 Dose Schedule 2004-01-13 Completed [facility] 00:00:00 [facility] Polio (IPV/OPV) 2004-01-13 Completed [facility] 00:00:00 [facility] DTAP 2004-01-13 Completed [facility] 00:00:00 [facility] HIB 4 Dose Schedule 2004-01-13 Completed [facility] 00:00:00 [facility] Polio (IPV/OPV) 2004-01-13 Completed [facility] 00:00:00 [facility] DTAP 2004-01-13 Completed [facility] 00:00:00 [facility] HIB 4 Dose Schedule 2004-01-13 Completed [facility] 00:00:00 [facility] Polio (IPV/OPV) 2004-01-13 Completed [facility] 00:00:00 [facility] DTAP 2004-01-13 Completed [facility] 00:00:00 [facility] HIB 4 Dose Schedule 2004-01-13 Completed [facility] 00:00:00 [facility] Polio (IPV/OPV) 2004-01-13 Completed [facility] 00:00:00 [facility] DTAP 2004-01-13 Completed [facility] 00:00:00 [facility] HIB 4 Dose Schedule 2004-01-13 Completed [facility] 00:00:00 [facility] Polio (IPV/OPV) 2004-01-13 Completed [facility] 00:00:00 [facility] DTAP 2004-01-13 Completed [facility] 00:00:00 [facility] DTAP 2004-01-13 Completed [facility] 00:00:00 [facility] HIB 4 Dose Schedule 2004-01-13 Completed [facility] 00:00:00 [facility] Polio (IPV/OPV) 2004-01-13 Completed [facility] 00:00:00 [facility] HIB 4 Dose Schedule 2004-01-13 Completed [facility] 00:00:00 [facility] DTAP 2004-01-13 Completed [facility] 00:00:00 [facility] HIB 4 Dose Schedule 2004-01-13 Completed [facility] 00:00:00 [facility] Polio (IPV/OPV) 2004-01-13 Completed [facility] 00:00:00 [facility] Polio (IPV/OPV) 2004-01-13 Completed [facility] 00:00:00 [facility] DTAP 2004-01-13 Completed [facility] 00:00:00 [facility] HIB 4 Dose Schedule 2004-01-13 Completed [facility] 00:00:00 [facility] Polio (IPV/OPV) 2004-01-13 Completed [facility] 00:00:00 [facility] DTAP 2004-01-13 Completed [facility] 00:00:00 [facility] HIB 4 Dose Schedule 2004-01-13 Completed [facility] 00:00:00 [facility] Polio (IPV/OPV) 2004-01-13 Completed [facility] 00:00:00 [facility] DTAP 2004-01-13 Completed [facility] 00:00:00 [facility] HIB 4 Dose Schedule 2004-01-13 Completed [facility] 00:00:00 [facility] Polio (IPV/OPV) 2004-01-13 Completed [facility] 00:00:00 [facility] DTAP 2004-01-13 Completed [facility] 00:00:00 [facility] HIB 4 Dose Schedule 2004-01-13 Completed [facility] 00:00:00 [facility] Polio (IPV/OPV) 2004-01-13 Completed [facility] 00:00:00 [facility] DTAP 2004-01-13 Completed [facility] 00:00:00 [facility] HIB 4 Dose Schedule 2004-01-13 Completed [facility] 00:00:00 [facility] Polio (IPV/OPV) 2004-01-13 Completed [facility] 00:00:00 [facility] DTAP 2004-01-13 Completed [facility] 00:00:00 [facility] HIB 4 Dose Schedule 2004-01-13 Completed [facility] 00:00:00 [facility] Polio (IPV/OPV) 2004-01-13 Completed [facility] 00:00:00 [facility] DTAP 2004-01-13 Completed [facility] 00:00:00 [facility] HIB 4 Dose Schedule 2004-01-13 Completed [facility] 00:00:00 [facility] Polio (IPV/OPV) 2004-01-13 Completed [facility] 00:00:00 [facility] DTAP 2004-01-13 Completed [facility] 00:00:00 [facility] DTAP 2004-01-13 Completed [facility] 00:00:00 [facility] HIB 4 Dose Schedule 2004-01-13 Completed [facility] 00:00:00 [facility] Polio (IPV/OPV) 2004-01-13 Completed [facility] 00:00:00 [facility] HIB 4 Dose Schedule 2004-01-13 Completed [facility] 00:00:00 [facility] Polio (IPV/OPV) 2004-01-13 Completed [facility] 00:00:00 [facility] DTAP 2004-01-13 Completed [facility] 00:00:00 [facility] HIB 4 Dose Schedule 2004-01-13 Completed [facility] 00:00:00 [facility] Polio (IPV/OPV) 2004-01-13 Completed [facility] 00:00:00 [facility] DTAP 2004-01-13 Completed [facility] 00:00:00 [facility] HIB 4 Dose Schedule 2004-01-13 Completed [facility] 00:00:00 [facility] Polio (IPV/OPV) 2004-01-13 Completed [facility] 00:00:00 [facility] DTAP 2004-01-13 Completed [facility] 00:00:00 [facility] HIB 4 Dose Schedule 2004-01-13 Completed [facility] 00:00:00 [facility] Polio (IPV/OPV) 2004-01-13 Completed [facility] 00:00:00 [facility] DTAP 2004-01-13 Completed [facility] 00:00:00 [facility] HIB 4 Dose Schedule 2004-01-13 Completed [facility] 00:00:00 [facility] Polio (IPV/OPV) 2004-01-13 Completed [facility] 00:00:00 [facility] DTAP 2004-01-13 Completed [facility] 00:00:00 [facility] HIB 4 Dose Schedule 2004-01-13 Completed [facility] 00:00:00 [facility] Polio (IPV/OPV) 2004-01-13 Completed [facility] 00:00:00 [facility] DTAP 2004-01-13 Completed [facility] 00:00:00 [facility] HIB 4 Dose Schedule 2004-01-13 Completed [facility] 00:00:00 [facility] Polio (IPV/OPV) 2004-01-13 Completed [facility] 00:00:00 [facility] DTAP 2004-01-13 Completed [facility] 00:00:00 [facility] HIB 4 Dose Schedule 2004-01-13 Completed [facility] 00:00:00 [facility] Polio (IPV/OPV) 2004-01-13 Completed [facility] 00:00:00 [facility] DTAP 2004-01-13 Completed [facility] 00:00:00 [facility] HIB 4 Dose Schedule 2004-01-13 Completed [facility] 00:00:00 [facility] Polio (IPV/OPV) 2004-01-13 Completed [facility] 00:00:00 [facility] DTAP 2003 Completed [facility] 00:00:00 [facility] HIB 4 Dose Schedule 2003 Completed [facility] 00:00:00 [facility] Pneumococcal 7 2003 Completed [facility] Conjugate, PCV7 00:00:00 [facility]Pre[facility]ar[facility] Polio (IPV/OPV) 2003 Completed [facility] 00:00:00 [facility] DTAP 2003 Completed [facility] 00:00:00 [facility] HIB 4 Dose Schedule 2003 Completed [facility] 00:00:00 [facility] Pneumococcal 7 2003 Completed [facility] Conjugate, PCV7 00:00:00 [facility]ar[facility] Polio (IPV/OPV) 2003 Completed [facility] 00:00:00 [facility] DTAP 2003 Completed [facility] 00:00:00 [facility] HIB 4 Dose Schedule 2003 Completed [facility] 00:00:00 [facility] DTAP 2003 Completed [facility] 00:00:00 [facility] HIB 4 Dose Schedule 2003 Completed [facility] 00:00:00 [facility] Pneumococcal 7 2003 Completed [facility] Conjugate, PCV7 00:00:00 [facility] Polio (IPV/OPV) 2003 Completed [facility] 00:00:00 [facility] Pneumococcal 7 2003 Completed [facility] Conjugate, PCV7 00:00:00 [facility] DTAP 2003 Completed [facility] 00:00:00 [facility] HIB 4 Dose Schedule 2003 Completed [facility] 00:00:00 [facility] Pneumococcal 7 2003 Completed [facility] Conjugate, PCV7 00:00:00 [facility] Polio (IPV/OPV) 2003 Completed [facility] 00:00:00 [facility] Polio (IPV/OPV) 2003 Completed [facility] 00:00:00 [facility] DTAP 2003 Completed [facility] 00:00:00 [facility] HIB 4 Dose Schedule 2003 Completed [facility] 00:00:00 [facility] Pneumococcal 7 2003 Completed [facility] Conjugate, PCV7 00:00:00 [facility]ar[facility] Polio (IPV/OPV) 2003 Completed [facility] 00:00:00 [facility] DTAP 2003 Completed [facility] 00:00:00 [facility] HIB 4 Dose Schedule 2003 Completed [facility] 00:00:00 [facility] Pneumococcal 7 2003 Completed [facility] Conjugate, PCV7 00:00:00 [facility] Polio (IPV/OPV) 2003 Completed [facility] 00:00:00 [facility] DTAP 2003 Completed [facility] 00:00:00 [facility] HIB 4 Dose Schedule 2003 Completed [facility] 00:00:00 [facility] Pneumococcal 7 2003 Completed [facility] Conjugate, PCV7 00:00:00 [facility] Polio (IPV/OPV) 2003 Completed [facility] 00:00:00 [facility] DTAP 2003 Completed [facility] 00:00:00 [facility] HIB 4 Dose Schedule 2003 Completed [facility] 00:00:00 [facility] Pneumococcal 7 2003 Completed [facility] Conjugate, PCV7 00:00:00 [facility] Polio (IPV/OPV) 2003 Completed [facility] 00:00:00 [facility] DTAP 2003 Completed [facility] 00:00:00 [facility] HIB 4 Dose Schedule 2003 Completed [facility] 00:00:00 [facility] Pneumococcal 7 2003 Completed [facility] Conjugate, PCV7 00:00:00 [facility] Polio (IPV/OPV) 2003 Completed [facility] 00:00:00 [facility] DTAP 2003 Completed [facility] 00:00:00 [facility] HIB 4 Dose Schedule 2003 Completed [facility] 00:00:00 [facility] Pneumococcal 7 2003 Completed [facility] Conjugate, PCV7 00:00:00 [facility] Polio (IPV/OPV) 2003 Completed [facility] 00:00:00 [facility] DTAP 2003 Completed [facility] 00:00:00 [facility] DTAP 2003 Completed [facility] 00:00:00 [facility] HIB 4 Dose Schedule 2003 Completed [facility] 00:00:00 [facility] Pneumococcal 7 2003 Completed [facility] Conjugate, PCV7 00:00:00 [facility] Polio (IPV/OPV) 2003 Completed [facility] 00:00:00 [facility] HIB 4 Dose Schedule 2003 Completed [facility] 00:00:00 [facility] DTAP 2003 Completed [facility] 00:00:00 [facility] HIB 4 Dose Schedule 2003 Completed [facility] 00:00:00 [facility] Pneumococcal 7 2003 Completed [facility] Conjugate, PCV7 00:00:00 [facility] Polio (IPV/OPV) 2003 Completed [facility] 00:00:00 [facility] Pneumococcal 7 2003 Completed [facility] Conjugate, PCV7 00:00:00 [facility] Polio (IPV/OPV) 2003 Completed [facility] 00:00:00 [facility] DTAP 2003 Completed [facility] 00:00:00 [facility] HIB 4 Dose Schedule 2003 Completed [facility] 00:00:00 [facility] Pneumococcal 7 2003 Completed [facility] Conjugate, PCV7 00:00:00 [facility] Polio (IPV/OPV) 2003 Completed [facility] 00:00:00 [facility] DTAP 2003 Completed [facility] 00:00:00 [facility] HIB 4 Dose Schedule 2003 Completed [facility] 00:00:00 [facility] Pneumococcal 7 2003 Completed [facility] Conjugate, PCV7 00:00:00 [facility] Polio (IPV/OPV) 2003 Completed [facility] 00:00:00 [facility] DTAP 2003 Completed [facility] 00:00:00 [facility] HIB 4 Dose Schedule 2003 Completed [facility] 00:00:00 [facility] Pneumococcal 7 2003 Completed [facility] Conjugate, PCV7 00:00:00 [facility] Polio (IPV/OPV) 2003 Completed [facility] 00:00:00 [facility] DTAP 2003 Completed [facility] 00:00:00 [facility] HIB 4 Dose Schedule 2003 Completed [facility] 00:00:00 [facility] Pneumococcal 7 2003 Completed [facility] Conjugate, PCV7 00:00:00 [facility] Polio (IPV/OPV) 2003 Completed [facility] 00:00:00 [facility] DTAP 2003 Completed [facility] 00:00:00 [facility] HIB 4 Dose Schedule 2003 Completed [facility] 00:00:00 [facility] Pneumococcal 7 2003 Completed [facility] Conjugate, PCV7 00:00:00 [facility] Polio (IPV/OPV) 2003 Completed [facility] 00:00:00 [facility] DTAP 2003 Completed [facility] 00:00:00 [facility] HIB 4 Dose Schedule 2003 Completed [facility] 00:00:00 [facility] Pneumococcal 7 2003 Completed [facility] Conjugate, PCV7 00:00:00 [facility] Polio (IPV/OPV) 2003 Completed [facility] 00:00:00 [facility] DTAP 2003 Completed [facility] 00:00:00 [facility] HIB 4 Dose Schedule 2003 Completed [facility] 00:00:00 [facility] Pneumococcal 7 2003 Completed [facility] Conjugate, PCV7 00:00:00 [facility] Polio (IPV/OPV) 2003 Completed [facility] 00:00:00 [facility] DTAP 2003 Completed [facility] 00:00:00 [facility] HIB 4 Dose Schedule 2003 Completed [facility] 00:00:00 [facility] Pneumococcal 7 2003 Completed [facility] Conjugate, PCV7 00:00:00 [facility] Polio (IPV/OPV) 2003 Completed [facility] 00:00:00 [facility] DTAP 2003 Completed [facility] 00:00:00 [facility] DTAP 2003 Completed [facility] 00:00:00 [facility] HIB 4 Dose Schedule 2003 Completed [facility] 00:00:00 [facility] Pneumococcal 7 2003 Completed [facility] Conjugate, PCV7 00:00:00 [facility] HIB 4 Dose Schedule 2003 Completed [facility] 00:00:00 [facility] Polio (IPV/OPV) 2003 Completed [facility] 00:00:00 [facility] DTAP 2003 Completed [facility] 00:00:00 [facility] HIB 4 Dose Schedule 2003 Completed [facility] 00:00:00 [facility] Pneumococcal 7 2003 Completed [facility] Conjugate, PCV7 00:00:00 [facility] Polio (IPV/OPV) 2003 Completed [facility] 00:00:00 [facility] Pneumococcal 7 2003 Completed [facility] Conjugate, PCV7 00:00:00 [facility] Polio (IPV/OPV) 2003 Completed [facility] 00:00:00 [facility] DTAP 2003 Completed [facility] 00:00:00 [facility] HIB 4 Dose Schedule 2003 Completed [facility] 00:00:00 [facility] Pneumococcal 7 2003 Completed [facility] Conjugate, PCV7 00:00:00 [facility] Polio (IPV/OPV) 2003 Completed [facility] 00:00:00 [facility] DTAP 2003 Completed [facility] 00:00:00 [facility] HIB 4 Dose Schedule 2003 Completed [facility] 00:00:00 [facility] Pneumococcal 7 2003 Completed [facility] Conjugate, PCV7 00:00:00 [facility] Polio (IPV/OPV) 2003 Completed [facility]00 [facility] [facility] DTAP 2003 Completed [facility] 00:00:00 [facility] HIB 4 Dose Schedule 2003 Completed [facility] 00:00:00 [facility] Pneumococcal 7 2003 Completed [facility] of Conjugate, PCV7 00:00:00 [place] [facility] (Prevnar7) [facility] Polio (IPV/OPV) 2003 Completed [facility] 00:00:00 [facility] DTAP 2003 Completed [facility] 00:00:00 [facility] HIB 4 Dose Schedule 2003 Completed [facility] 00:00:00 [facility] Pneumococcal 7 2003 Completed [facility] of Conjugate, PCV7 00:00:00 [facility] ical (Prevnar7) Branch Polio (IPV/OPV) 2003 Completed [facility] 00:00:00 [facility] DTAP 2003 Completed [facility] 00:00:00 [facility] HIB 4 Dose Schedule 2003 Completed [facility] 00:00:00 [facility] Pneumococcal 7 2003 Completed [facility] Conjugate, PCV7 00:00:00 [facility] ical (Prevnar7) Branch Polio (IPV/OPV) 2003 Completed [facility] 00:00:00 [facility] DTAP 2003 Completed [facility] 00:00:00 [facility] HIB 4 Dose Schedule 2003 Completed [facility] 00:00:00 [facility] Pneumococcal 7 2003 Completed [facility] Conjugate, PCV7 00:00:00 [place] [facility] (Prevnar7) [facility] Polio (IPV/OPV) 2003 Completed [facility] 00:00:00 [facility] DTAP 2003 Completed [facility] 00:00:00 [facility] HIB 4 Dose Schedule 2003 Completed [facility] 00:00:00 [facility] Pneumococcal 7 2003 Completed [facility] Conjugate, PCV7 00:00:00 [place] [facility] (Prevnar7) [facility] Polio (IPV/OPV) 2003 Completed [facility] 00:00:00 [facility] DTAP 2003 Completed [facility] 00:00:00 [facility] HIB 4 Dose Schedule 2003 Completed [facility] 00:00:00 [facility] DTAP 2003 Completed [facility] 00:00:00 [facility] HIB 4 Dose Schedule 2003 Completed [facility] 00:00:00 [facility] Pneumococcal 7 2003 Completed [facility] Conjugate, PCV7 00:00:00 [place] [facility] (Prevnar7) [facility] Polio (IPV/OPV) 2003 Completed [facility] 00:00:00 [facility] DTAP 2003 Completed [facility] 00:00:00 [facility] HIB 4 Dose Schedule 2003 Completed [facility] 00:00:00 [facility] Pneumococcal 7 2003 Completed [facility] Conjugate, PCV7 00:00:00 [place] [facility] (Prevnar7) [facility] Pneumococcal 7 2003 Completed [facility] Conjugate, PCV7 00:00:00 [place] [facility] (Prevnar7) [facility] Polio (IPV/OPV) 2003 Completed [facility] 00:00:00 [facility] Polio (IPV/OPV) 2003 Completed [facility] 00:00:00 [facility] DTAP 2003 Completed [facility] 00:00:00 [facility] HIB 4 Dose Schedule 2003 Completed [facility] 00:00:00 [facility] Pneumococcal 7 2003 Completed [facility] Conjugate, PCV7 00:00:00 [place] [facility] (Prevnar7) [facility] Polio (IPV/OPV) 2003 Completed [facility] 00:00:00 [facility] DTAP 2003 Completed [facility] 00:00:00 [facility] HIB 4 Dose Schedule 2003 Completed [facility] 00:00:00 [facility] Pneumococcal 7 2003 Completed [facility] Conjugate, PCV7 00:00:00 [place] [facility] (Prevnar7) Branch Polio (IPV/OPV) 2003 Completed [facility] 00:00:00 [facility] DTAP 2003 Completed [facility] 00:00:00 [facility] HIB 4 Dose Schedule 2003 Completed [facility] 00:00:00 [facility] Pneumococcal 7 2003 Completed [facility] Conjugate, PCV7 00:00:00 [place] [facility] (Prevnar7) [facility] Polio (IPV/OPV) 2003 Completed [facility] 00:00:00 [facility] DTAP 2003 Completed [facility] 00:00:00 [facility] HIB 4 Dose Schedule 2003 Completed [facility] 00:00:00 [facility] Pneumococcal 7 2003 Completed [facility] Conjugate, PCV7 00:00:00 [place] [facility] (Prevnar7) Branch Polio (IPV/OPV) 2003 Completed [facility] 00:00:00 [facility] DTAP 2003 Completed [facility] 00:00:00 [facility] HIB 4 Dose Schedule 2003 Completed [facility] 00:00:00 [facility] Pneumococcal 7 2003 Completed [facility] Conjugate, PCV7 00:00:00 [place] [facility] (Prevnar7) Branch Polio (IPV/OPV) 2003 Completed [facility] 00:00:00 [facility] DTAP 2003 Completed [facility] 00:00:00 [facility] HIB 4 Dose Schedule 2003 Completed [facility] 00:00:00 [facility] Pneumococcal 7 2003 Completed [facility] Conjugate, PCV7 00:00:00 [place] [facility] (Prevnar7) Branch Polio (IPV/OPV) 2003 Completed [facility] 00:00:00 [facility] DTAP 2003 Completed [facility] 00:00:00 [facility] HIB 4 Dose Schedule 2003 Completed [facility] 00:00:00 [facility] Pneumococcal 7 2003 Completed [facility] Conjugate, PCV7 00:00:00 [place] [facility] (Prevnar7) Branch Polio (IPV/OPV) 2003 Completed [facility] 00:00:00 [facility] DTAP 2003 Completed [facility] 00:00:00 [facility] HIB 4 Dose Schedule 2003 Completed [facility] 00:00:00 [facility] Pneumococcal 7 2003 Completed [facility] Conjugate, PCV7 00:00:00 [place] [facility] (Prevnar7) Branch Polio (IPV/OPV) 2003 Completed [facility] 00:00:00 [facility] DTAP 2003 Completed [facility] 00:00:00 [facility] HIB 4 Dose Schedule 2003 Completed [facility] 00:00:00 [facility] Pneumococcal 7 2003 Completed [facility] Conjugate, PCV7 00:00:00 [place] [facility] (Prevnar7) Branch Polio (IPV/OPV) 2003 Completed [facility] 00:00:00 [facility] DTAP 2003 Completed [facility] 00:00:00 [facility] HIB 4 Dose Schedule 2003 Completed [facility] 00:00:00 [facility] DTAP 2003 Completed [facility] 00:00:00 [facility] HIB 4 Dose Schedule 2003 Completed [facility] 00:00:00 [facility] Pneumococcal 7 2003 Completed [facility] Conjugate, PCV7 00:00:00 [place] [facility] (Prevnar7) Branch Polio (IPV/OPV) 2003 Completed [facility] 00:00:00 [facility] Pneumococcal 7 2003 Completed [facility] Conjugate, PCV7 00:00:00 [place] [facility] (Prevnar7) [facility] Polio (IPV/OPV) 2003 Completed [facility] 00:00:00 [facility] DTAP 2003 Completed [facility] 00:00:00 [facility] HIB 4 Dose Schedule 2003 Completed [facility] 00:00:00 [facility] Pneumococcal 7 2003 Completed [facility] Conjugate, PCV7 00:00:00 [place] [facility] (Prevnar7) Branch Polio (IPV/OPV) 2003 Completed [facility] 00:00:00 [facility] DTAP 2003 Completed [facility] 00:00:00 [facility] HIB 4 Dose Schedule 2003 Completed [facility] 00:00:00 [facility] Pneumococcal 7 2003 Completed [facility] Conjugate, PCV7 00:00:00 [place] [facility] (Prevnar7) Branch Polio (IPV/OPV) 2003 Completed [facility] 00:00:00 [facility] DTAP 2003 Completed [facility] 00:00:00 [facility] HIB 4 Dose Schedule 2003 Completed [facility] 00:00:00 [facility] Pneumococcal 7 2003 Completed [facility] Conjugate, PCV7 00:00:00 [place] [facility] (Prevnar7) [facility] Polio (IPV/OPV) 2003 Completed [facility] 00:00:00 [facility] DTAP 2003 Completed [facility] 00:00:00 [facility] HIB 4 Dose Schedule 2003 Completed [facility] 00:00:00 [facility] Pneumococcal 7 2003 Completed [facility] Conjugate, PCV7 00:00:00 [place] [facility] (Prevnar7) Branch Polio (IPV/OPV) 2003 Completed [facility] 00:00:00 [facility] DTAP 2003 Completed [facility] 00:00:00 [facility] HIB 4 Dose Schedule 2003 Completed [facility] 00:00:00 [facility] Pneumococcal 7 2003 Completed [facility] Conjugate, PCV7 00:00:00 [place] [facility] (Prevnar7) Branch Polio (IPV/OPV) 2003 Completed [facility] 00:00:00 [facility] DTAP 2003 Completed [facility] 00:00:00 [facility] HIB 4 Dose Schedule 2003 Completed [facility] 00:00:00 [facility] Pneumococcal 7 2003 Completed [facility] Conjugate, PCV7 00:00:00 [place] [facility] (Prevnar7) Branch Polio (IPV/OPV) 2003 Completed [facility] 00:00:00 [facility] DTAP 2003 Completed [facility] 00:00:00 [facility] HIB 4 Dose Schedule 2003 Completed [facility] 00:00:00 [facility] Pneumococcal 7 2003 Completed [facility] Conjugate, PCV7 00:00:00 [place] [facility] (Prevnar7) Branch Polio (IPV/OPV) 2003 Completed [facility] 00:00:00 [facility] DTAP 2003 Completed [facility] 00:00:00 [facility] HIB 4 Dose Schedule 2003 Completed [facility] 00:00:00 [facility] Pneumococcal 7 2003 Completed [facility] Conjugate, PCV7 00:00:00 [place] [facility] (Prevnar7) Branch Polio (IPV/OPV) 2003 Completed [facility] 00:00:00 [facility] DTAP 2003 Completed [facility] 00:00:00 [facility] HIB 4 Dose Schedule 2003 Completed [facility] 00:00:00 [facility] Pneumococcal 7 2003 Completed [facility] Conjugate, PCV7 00:00:00 [place] [facility] (Prevnar7) Branch Polio (IPV/OPV) 2003 Completed [facility] 00:00:00 [facility] DTAP 2003 Completed [facility] 00:00:00 [facility] HIB 4 Dose Schedule 2003 Completed [facility] 00:00:00 [facility] DTAP 2003 Completed [facility] 00:00:00 [facility] HIB 4 Dose Schedule 2003 Completed [facility] 00:00:00 [facility] Pneumococcal 7 2003 Completed [facility] Conjugate, PCV7 00:00:00 [place] [facility] (Prevnar7) Branch Polio (IPV/OPV) 2003 Completed [facility] 00:00:00 [facility] Pneumococcal 7 2003 Completed [facility] Conjugate, PCV7 00:00:00 [place] [facility] (Prevnar7) Branch Polio (IPV/OPV) 2003 Completed [facility] 00:00:00 [facility] DTAP 2003 Completed [facility] 00:00:00 [facility] HIB 4 Dose Schedule 2003 Completed [facility] 00:00:00 [facility] Pneumococcal 7 2003 Completed [facility] Conjugate, PCV7 00:00:00 [place] [facility] (Prevnar7) Branch Polio (IPV/OPV) 2003 Completed [facility] 00:00:00 [facility] DTAP 2003 Completed [facility] 00:00:00 [facility] HIB 4 Dose Schedule 2003 Completed [facility] 00:00:00 [facility] Pneumococcal 7 2003 Completed [facility] Conjugate, PCV7 00:00:00 [place] [facility] (Prevnar7) Branch Polio (IPV/OPV) 2003 Completed [facility] 00:00:00 [facility] DTAP 2003 Completed [facility] 00:00:00 [facility] HIB 4 Dose Schedule 2003 Completed [facility] 00:00:00 [facility] Pneumococcal 7 2003 Completed [facility] Conjugate, PCV7 00:00:00 [place] [facility] (Prevnar7) Branch Polio (IPV/OPV) 2003 Completed [facility] 00:00:00 [facility] DTAP 2003 Completed [facility] 00:00:00 [facility] HIB 4 Dose Schedule 2003 Completed [facility] 00:00:00 [facility] Pneumococcal 7 2003 Completed [facility] Conjugate, PCV7 00:00:00 [place] [facility] (Prevnar7) Branch Polio (IPV/OPV) 2003 Completed [facility] 00:00:00 [facility] DTAP 2003 Completed [facility] 00:00:00 [facility] HIB 4 Dose Schedule 2003 Completed [facility] 00:00:00 [facility] Pneumococcal 7 2003 Completed [facility] Conjugate, PCV7 00:00:00 [place] [facility] (Prevnar7) Branch Polio (IPV/OPV) 2003 Completed [facility] 00:00:00 [facility] DTAP 2003 Completed [facility] 00:00:00 [facility] HIB 4 Dose Schedule 2003 Completed [facility] 00:00:00 [facility] Pneumococcal 7 2003 Completed [facility] Conjugate, PCV7 00:00:00 [place] [facility] (Prevnar7) Branch Polio (IPV/OPV) 2003 Completed [facility] 00:00:00 [facility] DTAP 2003 Completed [facility] 00:00:00 [facility] HIB 4 Dose Schedule 2003 Completed [facility] 00:00:00 [facility] Pneumococcal 7 2003 Completed [facility] Conjugate, PCV7 00:00:00 [place] [facility] (Prevnar7) Branch Polio (IPV/OPV) 2003 Completed [facility] 00:00:00 [facility] DTAP 2003 Completed [facility] 00:00:00 [facility] HIB 4 Dose Schedule 2003 Completed [facility] 00:00:00 [facility] Pneumococcal 7 2003 Completed [facility] Conjugate, PCV7 00:00:00 [place] [facility] (Prevnar7) Branch Polio (IPV/OPV) 2003 Completed [facility] 00:00:00 [facility] DTAP 2003 Completed [facility] 00:00:00 [facility] HIB 4 Dose Schedule 2003 Completed [facility] 00:00:00 [facility] Pneumococcal 7 2003 Completed [facility] Conjugate, PCV7 00:00:00 [place] [facility] (Prevnar7) Branch Polio (IPV/OPV) 2003 Completed [facility] 00:00:00 [facility] DTAP 2003 Completed [facility] 00:00:00 [facility] HIB 4 Dose Schedule 2003 Completed [facility] 00:00:00 [facility] Pneumococcal 7 2003 Completed [facility] Conjugate, PCV7 00:00:00 [place] [facility] (Prevnar7) Branch Polio (IPV/OPV) 2003 Completed [facility] 00:00:00 [facility] DTAP 2003 Completed [facility] 00:00:00 [facility] HIB 4 Dose Schedule 2003 Completed [facility] 00:00:00 [facility] Pneumococcal 7 2003 Completed [facility] Conjugate, PCV7 00:00:00 [place] [facility] (Prevnar7) Branch Polio (IPV/OPV) 2003 Completed [facility] 00:00:00 [facility] DTAP 2003 Completed [facility] 00:00:00 [facility] HIB 4 Dose Schedule 2003 Completed [facility] 00:00:00 [facility] Pneumococcal 7 2003 Completed [facility] Conjugate, PCV7 00:00:00 [place] [facility] (Prevnar7) Branch Polio (IPV/OPV) 2003 Completed [facility] 00:00:00 [facility] DTAP 2003 Completed [facility] 00:00:00 [facility] HIB 4 Dose Schedule 2003 Completed [facility] 00:00:00 [facility] DTAP 2003 Completed [facility] 00:00:00 [facility] Pneumococcal 7 2003 Completed [facility] Conjugate, PCV7 00:00:00 [facility] ica (Prevnar7) Tram Polio (IPV/OPV) 2003 Completed [facility] 00:00:00 [facility] HIB 4 Dose Schedule 2003 Completed [facility] 00:00:00 [facility] DTAP 2003 Completed [facility] 00:00:00 [facility] HIB 4 Dose Schedule 2003 Completed [facility] 00:00:00 [facility] Pneumococcal 7 2003 Completed [facility] Conjugate, PCV7 00:00:00 [place] [facility] (Prevnar7) [facility] Pneumococcal 7 2003 Completed [facility] Conjugate, PCV7 00:00:00 [facility] ical (Prevnar7) Branch Polio (IPV/OPV) 2003 Completed [facility] 00:00:00 [facility] Polio (IPV/OPV) 2003 Completed [facility] 00:00:00 [facility] DTAP 2003 Completed [facility] 00:00:00 [facility] HIB 4 Dose Schedule 2003 Completed [facility] 00:00:00 [facility] Pneumococcal 7 2003 Completed [facility] Conjugate, PCV7 00:00:00 [place] [facility] (Prevnar7) Branch Polio (IPV/OPV) 2003 Completed [facility] 00:00:00 [facility] DTAP 2003 Completed [facility] 00:00:00 [facility] HIB 4 Dose Schedule 2003 Completed [facility] 00:00:00 [facility] Pneumococcal 7 2003 Completed [facility] Conjugate, PCV7 00:00:00 [place] [facility] (Prevnar7) Branch Polio (IPV/OPV) 2003 Completed [facility] 00:00:00 [facility] DTAP 2003 Completed [facility] 00:00:00 [facility] HIB 4 Dose Schedule 2003 Completed [facility] 00:00:00 [facility] Pneumococcal 7 2003 Completed [facility] Conjugate, PCV7 00:00:00 [place] [facility] (Prevnar7) Branch Polio (IPV/OPV) 2003 Completed [facility] 00:00:00 [facility] DTAP 2003 Completed [facility] 00:00:00 [facility] HIB 4 Dose Schedule 2003 Completed [facility] 00:00:00 [facility] Pneumococcal 7 2003 Completed [facility] Conjugate, PCV7 00:00:00 [place] [facility] (Prevnar7) Branch Polio (IPV/OPV) 2003 Completed [facility] 00:00:00 [facility] DTAP 2003 Completed [facility] 00:00:00 [facility] HIB 4 Dose Schedule 2003 Completed [facility] 00:00:00 [facility] Pneumococcal 7 2003 Completed [facility] Conjugate, PCV7 00:00:00 [place] [facility] (Prevnar7) Branch Polio (IPV/OPV) 2003 Completed [facility] 00:00:00 [facility] DTAP 2003 Completed [facility] 00:00:00 [facility] HIB 4 Dose Schedule 2003 Completed [facility] 00:00:00 [facility] Pneumococcal 7 2003 Completed [facility] Conjugate, PCV7 00:00:00 [place] [facility] (Prevnar7) Branch Polio (IPV/OPV) 2003 Completed [facility] 00:00:00 [facility] DTAP 2003 Completed [facility] 00:00:00 [facility] HIB 4 Dose Schedule 2003 Completed [facility] 00:00:00 [facility] Pneumococcal 7 2003 Completed [facility] Conjugate, PCV7 00:00:00 [place] [facility] (Prevnar7) Branch Polio (IPV/OPV) 2003 Completed [facility] 00:00:00 [facility] DTAP 2003 Completed [facility] 00:00:00 [facility] DTAP 2003 Completed [facility] 00:00:00 [facility] HIB 4 Dose Schedule 2003 Completed [facility] 00:00:00 [facility] Pneumococcal 7 2003 Completed [facility] Conjugate, PCV7 00:00:00 [place] [facility] (Prevnar7) Branch Polio (IPV/OPV) 2003 Completed [facility] 00:00:00 [facility] HIB 4 Dose Schedule 2003 Completed [facility] 00:00:00 [facility] Pneumococcal 7 2003 Completed [facility] Conjugate, PCV7 00:00:00 [place] [facility] (Prevnar7) Branch Polio (IPV/OPV) 2003 Completed [facility] 00:00:00 [facility] DTAP 2003 Completed [facility] 00:00:00 [facility] HIB 4 Dose Schedule 2003 Completed [facility] 00:00:00 [facility] Pneumococcal 7 2003 Completed [facility] Conjugate, PCV7 00:00:00 [place] [facility] (Prevnar7) Branch Polio (IPV/OPV) 2003 Completed [facility] 00:00:00 [facility] DTAP 2003 Completed [facility] 00:00:00 [facility] HIB 4 Dose Schedule 2003 Completed [facility] 00:00:00 [facility] Pneumococcal 7 2003 Completed [facility] Conjugate, PCV7 00:00:00 [place] [facility] (Prevnar7) Branch Polio (IPV/OPV) 2003 Completed [facility] 00:00:00 [facility] DTAP 2003 Completed [facility] 00:00:00 [facility] HIB 4 Dose Schedule 2003 Completed [facility] 00:00:00 [facility] Pneumococcal 7 2003 Completed [facility] Conjugate, PCV7 00:00:00 [place] [facility] (Prevnar7) Branch Polio (IPV/OPV) 2003 Completed [facility] 00:00:00 [facility] DTAP 2003 Completed [facility] 00:00:00 [facility] HIB 4 Dose Schedule 2003 Completed [facility] 00:00:00 [facility] Pneumococcal 7 2003 Completed [facility] Conjugate, PCV7 00:00:00 [place] [facility] (Prevnar7) Branch Polio (IPV/OPV) 2003 Completed [facility] 00:00:00 [facility] DTAP 2003 Completed [facility] 00:00:00 [facility] HIB 4 Dose Schedule 2003 Completed [facility] 00:00:00 [facility] Pneumococcal 7 2003 Completed [facility] Conjugate, PCV7 00:00:00 [place] [facility] (Prevnar7) Branch Polio (IPV/OPV) 2003 Completed [facility] 00:00:00 [facility] DTAP 2003 Completed [facility] 00:00:00 [facility] HIB 4 Dose Schedule 2003 Completed [facility] 00:00:00 [facility] Pneumococcal 7 2003 Completed [facility] Conjugate, PCV7 00:00:00 [place] [facility] (Prevnar7) Branch Polio (IPV/OPV) 2003 Completed [facility] 00:00:00 [facility] DTAP 2003 Completed [facility] 00:00:00 [facility] HIB 4 Dose Schedule 2003 Completed [facility] 00:00:00 [facility] Pneumococcal 7 2003 Completed [facility] Conjugate, PCV7 00:00:00 [place] [facility] (Prevnar7) Branch Polio (IPV/OPV) 2003 Completed [facility] 00:00:00 [facility] DTAP 2003 Completed [facility] 00:00:00 [facility] HIB 4 Dose Schedule 2003 Completed [facility] 00:00:00 [facility] Pneumococcal 7 2003 Completed [facility] Conjugate, PCV7 00:00:00 [place] [facility] (Prevnar7) [facility] Polio (IPV/OPV) 2003 Completed [facility] 00:00:00 [facility] DTAP 2003 Completed [facility] 00:00:00 [facility] Hep B, Adol or Pedi 2003 Completed [facility] of Dosage 00:00:00 [facility] DTAP 2003 Completed [facility] 00:00:00 [facility] Hep B, Adol or Pedi 2003 Completed [facility] Dosage 00:00:00 [facility] HIB 4 Dose Schedule 2003 Completed [facility] 00:00:00 [facility] HIB 4 Dose Schedule 2003 Completed [facility] 00:00:00 [facility] Polio (IPV/OPV) 2003 Completed [facility] 00:00:00 [facility] Pneumococcal 7 2003 Completed [facility] Conjugate, PCV7 00:00:00 [place] [facility] (Prevnar7) [facility] Polio (IPV/OPV) 2003 Completed [facility] 00:00:00 [facility] Pneumococcal 7 2003 Completed [facility] Conjugate, PCV7 00:00:00 [place] [facility] (Prevnar7) [facility] DTAP 2003 Completed [facility] 00:00:00 [facility] Hep B, Adol or Pedi 2003 Completed [facility] Dosage 00:00:00 [facility] HIB 4 Dose Schedule 2003 Completed [facility] 00:00:00 [facility] Polio (IPV/OPV) 2003 Completed [facility] 00:00:00 [facility] Pneumococcal 7 2003 Completed [facility] Conjugate, PCV7 00:00:00 [place] [facility] (Pre[facility]ar[facility] DTAP 2003 Completed [facility] 00:00:00 [facility] Hep B, Adol or Pedi 2003 Completed [facility] Dosage 00:00:00 [facility] HIB 4 Dose Schedule 2003 Completed [facility] 00:00:00 [facility] Polio (IPV/OPV) 2003 Completed [facility] 00:00:00 [facility] Pneumococcal 7 2003 Completed [facility] Conjugate, PCV7 00:00:00 [place] [facility] (Pre[facility]ar7[facility] DTAP 2003 Completed [facility] 00:00:00 [facility] Hep B, Adol or Pedi 2003 Completed [facility] Dosage 00:00:00 [facility] HIB 4 Dose Schedule 2003 Completed [facility] 00:00:00 [facility] Polio (IPV/OPV) 2003 Completed [facility] 00:00:00 [facility] Pneumococcal 7 2003 Completed [facility] Conjugate, PCV7 00:00:00 [place] [facility] (Pre[facility]ar[facility] DTAP 2003 Completed [facility] 00:00:00 [facility] Hep B, Adol or Pedi 2003 Completed [facility] Dosage 00:00:00 [facility] HIB 4 Dose Schedule 2003 Completed [facility] 00:00:00 [facility] Polio (IPV/OPV) 2003 Completed [facility] 00:00:00 [facility] Pneumococcal 7 2003 Completed [facility] Conjugate, PCV7 00:00:00 [place] [facility] (Pre[facility]ar[facility] DTAP 2003 Completed [facility] 00:00:00 [facility] Hep B, Adol or Pedi 2003 Completed [facility] Dosage 00:00:00 [facility] HIB 4 Dose Schedule 2003 Completed [facility] 00:00:00 [facility] Polio (IPV/OPV) 2003 Completed [facility] 00:00:00 [facility] Pneumococcal 7 2003 Completed [facility] Conjugate, PCV7 00:00:00 [place] [facility] (Prevnar[facility] DTAP 2003 Completed [facility] 00:00:00 [facility] Hep B, Adol or Pedi 2003 Completed [facility] Dosage 00:00:00 [facility] HIB 4 Dose Schedule 2003 Completed [facility] 00:00:00 [facility] Polio (IPV/OPV) 2003 Completed [facility] 00:00:00 [facility] Pneumococcal 7 2003 Completed [facility] Conjugate, PCV7 00:00:00 [place] [facility] (Prevnar7[facility] DTAP 2003 Completed [facility] 00:00:00 [facility] Hep B, Adol or Pedi 2003 Completed [facility] Dosage 00:00:00 [facility] HIB 4 Dose Schedule 2003 Completed [facility] 00:00:00 [facility] Polio (IPV/OPV) 2003 Completed [facility] 00:00:00 [facility] Pneumococcal 7 2003 Completed [facility] Conjugate, PCV7 00:00:00 [place] [facility] (Prevnar[facility] DTAP 2003 Completed [facility] 00:00:00 [facility] Hep B, Adol or Pedi 2003 Completed [facility] Dosage 00:00:00 [facility] HIB 4 Dose Schedule 2003 Completed [facility] 00:00:00 [facility] DTAP 2003 Completed [facility] 00:00:00 [facility] Polio (IPV/OPV) 2003 Completed [facility] 00:00:00 [facility] Pneumococcal 7 2003 Completed [facility] Conjugate, PCV7 00:00:00 [place] [facility] (Prevnar[facility] Hep B, Adol or Pedi 2003 Completed [facility] Dosage 00:00:00 [facility] HIB 4 Dose Schedule 2003 Completed [facility] 00:00:00 [facility] Polio (IPV/OPV) 2003 Completed [facility] 00:00:00 [facility] DTAP 2003 Completed [facility] 00:00:00 [facility] Hep B, Adol or Pedi 2003 Completed [facility] Dosage 00:00:00 [facility] HIB 4 Dose Schedule 2003 Completed [facility] 00:00:00 [facility] Polio (IPV/OPV) 2003 Completed [facility] 00:00:00 [facility] Pneumococcal 7 2003 Completed [facility] Conjugate, PCV7 00:00:00 [place] [facility] ([facility] Pneumococcal 7 2003 Completed [facility] Conjugate, PCV7 00:00:00 [place] [facility] (Prevnar7[facility] DTAP 2003 Completed [facility] 00:00:00 [facility] Hep B, Adol or Pedi 2003 Completed [facility] Dosage 00:00:00 [facility] HIB 4 Dose Schedule 2003 Completed [facility] 00:00:00 [facility] Polio (IPV/OPV) 2003 Completed [facility] 00:00:00 [facility] Pneumococcal 7 2003 Completed [facility] Conjugate, PCV7 00:00:00 [place] [facility] (Prevnar7[facility] DTAP 2003 Completed [facility] 00:00:00 [facility] Hep B, Adol or Pedi 2003 Completed [facility] Dosage 00:00:00 [facility] HIB 4 Dose Schedule 2003 Completed [facility] 00:00:00 [facility] Polio (IPV/OPV) 2003 Completed [facility] 00:00:00 [facility] Pneumococcal 7 2003 Completed [facility] Conjugate, PCV7 00:00:00 [place] [facility] (Prevnar7[facility] DTAP 2003 Completed [facility] 00:00:00 [facility] Hep B, Adol or Pedi 2003 Completed [facility] Dosage 00:00:00 [facility] HIB 4 Dose Schedule 2003 Completed [facility] 00:00:00 [facility] Polio (IPV/OPV) 2003 Completed [facility] 00:00:00 [facility] Pneumococcal 7 2003 Completed [facility] Conjugate, PCV7 00:00:00 [place] [facility] (Prevnar7[facility] DTAP 2003 Completed [facility] 00:00:00 [facility] Hep B, Adol or Pedi 2003 Completed [facility] Dosage 00:00:00 [facility] HIB 4 Dose Schedule 2003 Completed [facility] 00:00:00 [facility] Polio (IPV/OPV) 2003 Completed [facility] 00:00:00 [facility] Pneumococcal 7 2003 Completed [facility] Conjugate, PCV7 00:00:00 [place] [facility] (Prevnar7[facility] DTAP 2003 Completed [facility] 00:00:00 [facility] Hep B, Adol or Pedi 2003 Completed [facility] Dosage 00:00:00 [facility] HIB 4 Dose Schedule 2003 Completed [facility] 00:00:00 [facility] Polio (IPV/OPV) 2003 Completed [facility] 00:00:00 [facility] Pneumococcal 7 2003 Completed [facility] Conjugate, PCV7 00:00:00 [place] [facility] (Prevnar7[facility] DTAP 2003 Completed [facility] 00:00:00 [facility] Hep B, Adol or Pedi 2003 Completed [facility] Dosage 00:00:00 [facility] HIB 4 Dose Schedule 2003 Completed [facility] 00:00:00 [facility] Polio (IPV/OPV) 2003 Completed [facility] 00:00:00 [facility] Pneumococcal 7 2003 Completed [facility] Conjugate, PCV7 00:00:00 [place] [facility] (Prevnar7[facility] DTAP 2003 Completed [facility] 00:00:00 [facility] Hep B, Adol or Pedi 2003 Completed [facility] Dosage 00:00:00 [facility] HIB 4 Dose Schedule 2003 Completed [facility] 00:00:00 [facility] Polio (IPV/OPV) 2003 Completed [facility] 00:00:00 [facility] Pneumococcal 7 2003 Completed [facility] Conjugate, PCV7 00:00:00 [place] [facility] (Prevnar7[facility] DTAP 2003 Completed [facility] 00:00:00 [facility] Hep B, Adol or Pedi 2003 Completed [facility] Dosage 00:00:00 [facility] HIB 4 Dose Schedule 2003 Completed [facility] 00:00:00 [facility] Polio (IPV/OPV) 2003 Completed [facility] 00:00:00 [facility] Pneumococcal 7 2003 Completed [facility] Conjugate, PCV7 00:00:00 [place] [facility] (Prevnar[facility] DTAP 2003 Completed [facility] 00:00:00 [facility] Hep B, Adol or Pedi 2003 Completed [facility] Dosage 00:00:00 [facility] DTAP 2003 Completed [facility] 00:00:00 [facility] Hep B, Adol or Pedi 2003 Completed [facility] Dosage 00:00:00 [facility] HIB 4 Dose Schedule 2003 Completed [facility] 00:00:00 [facility] Polio (IPV/OPV) 2003 Completed [facility] 00:00:00 [facility] Pneumococcal 7 2003 Completed [facility] Conjugate, PCV7 00:00:00 [place] [facility] (Prevnar[facility] HIB 4 Dose Schedule 2003 Completed [facility] 00:00:00 [facility] Polio (IPV/OPV) 2003 Completed [facility] 00:00:00 [facility] Pneumococcal 7 2003 Completed [facility] Conjugate, PCV7 00:00:00 [place] [facility] (Prevnar7[facility] DTAP 2003 Completed [facility] 00:00:00 [facility] Hep B, Adol or Pedi 2003 Completed [facility] Dosage 00:00:00 [facility] HIB 4 Dose Schedule 2003 Completed [facility] 00:00:00 [facility] Polio (IPV/OPV) 2003 Completed [facility] 00:00:00 [facility] Pneumococcal 7 2003 Completed [facility] Conjugate, PCV7 00:00:00 [place] [facility] (Prevnar7[facility] DTAP 2003 Completed [facility] 00:00:00 [facility] Hep B, Adol or Pedi 2003 Completed [facility] Dosage 00:00:00 [facility] HIB 4 Dose Schedule 2003 Completed [facility] 00:00:00 [facility] Polio (IPV/OPV) 2003 Completed [facility] 00:00:00 [facility] Pneumococcal 7 2003 Completed [facility] Conjugate, PCV7 00:00:00 [place] [facility] (Prevnar7[facility] DTAP 2003 Completed [facility] 00:00:00 [facility] Hep B, Adol or Pedi 2003 Completed [facility] Dosage 00:00:00 [facility] HIB 4 Dose Schedule 2003 Completed [facility] 00:00:00 [facility] Polio (IPV/OPV) 2003 Completed [facility] 00:00:00 [facility] Pneumococcal 7 2003 Completed [facility] Conjugate, PCV7 00:00:00 [place] [facility] (Prevnar7[facility] DTAP 2003 Completed [facility] 00:00:00 [facility] Hep B, Adol or Pedi 2003 Completed [facility] Dosage 00:00:00 [facility] HIB 4 Dose Schedule 2003 Completed [facility] 00:00:00 [facility] Polio (IPV/OPV) 2003 Completed [facility] 00:00:00 [facility] Pneumococcal 7 2003 Completed [facility] Conjugate, PCV7 00:00:00 [place] [facility] (Prevnar7[facility] DTAP 2003 Completed [facility] 00:00:00 [facility] Hep B, Adol or Pedi 2003 Completed [facility] Dosage 00:00:00 [facility] HIB 4 Dose Schedule 2003 Completed [facility] 00:00:00 [facility] Polio (IPV/OPV) 2003 Completed [facility] 00:00:00 [facility] Pneumococcal 7 2003 Completed [facility] Conjugate, PCV7 00:00:00 [place] [facility] (Prevnar7[facility] DTAP 2003 Completed [facility] 00:00:00 [facility] Hep B, Adol or Pedi 2003 Completed [facility] Dosage 00:00:00 [facility] HIB 4 Dose Schedule 2003 Completed [facility] 00:00:00 [facility] Polio (IPV/OPV) 2003 Completed [facility] 00:00:00 [facility] Pneumococcal 7 2003 Completed [facility] Conjugate, PCV7 00:00:00 [place] [facility] (Prevnar7[facility] DTAP 2003 Completed [facility] 00:00:00 [facility] Hep B, Adol or Pedi 2003 Completed [facility] Dosage 00:00:00 [facility] HIB 4 Dose Schedule 2003 Completed [facility] 00:00:00 [facility] Polio (IPV/OPV) 2003 Completed [facility] 00:00:00 [facility] Pneumococcal 7 2003 Completed [facility] Conjugate, PCV7 00:00:00 [place] [facility] (Prevnar7[facility] DTAP 2003 Completed [facility] 00:00:00 [facility] Hep B, Adol or Pedi 2003 Completed [facility] Dosage 00:00:00 [facility] HIB 4 Dose Schedule 2003 Completed [facility] 00:00:00 [facility] Polio (IPV/OPV) 2003 Completed [facility] 00:00:00 [facility] Pneumococcal 7 2003 Completed [facility] Conjugate, PCV7 00:00:00 [place] [facility] (Prevnar7) [facility] DTAP 2003 Completed [facility] 00:00:00 [facility] Hep B, Adol or Pedi 2003 Completed [facility] Dosage 00:00:00 [facility] DTAP 2003 Completed [facility] 00:00:00 [facility] Hep B, Adol or Pedi 2003 Completed [facility] Dosage 00:00:00 [facility] HIB 4 Dose Schedule 2003 Completed [facility] 00:00:00 [facility] Polio (IPV/OPV) 2003 Completed [facility] 00:00:00 [facility] Pneumococcal 7 2003 Completed [facility] Conjugate, PCV7 00:00:00 [place] [facility] (Prevnar[facility] HIB 4 Dose Schedule 2003 Completed [facility] 00:00:00 [facility] Polio (IPV/OPV) 2003 Completed [facility] 00:00:00 [facility] Pneumococcal 7 2003 Completed [facility] Conjugate, PCV7 00:00:00 [place] [facility] (Prevnar7[facility] DTAP 2003 Completed [facility] 00:00:00 [facility] Hep B, Adol or Pedi 2003 Completed [facility] Dosage 00:00:00 [facility] HIB 4 Dose Schedule 2003 Completed [facility] 00:00:00 [facility] Polio (IPV/OPV) 2003 Completed [facility] 00:00:00 [facility] Pneumococcal 7 2003 Completed [facility] Conjugate, PCV7 00:00:00 [place] [facility] (Prevnar7[facility] DTAP 2003 Completed [facility] 00:00:00 [facility] Hep B, Adol or Pedi 2003 Completed [facility] Dosage 00:00:00 [facility] HIB 4 Dose Schedule 2003 Completed [facility] 00:00:00 [facility] Polio (IPV/OPV) 2003 Completed [facility] 00:00:00 [facility] Pneumococcal 7 2003 Completed [facility] Conjugate, PCV7 00:00:00 [place] [facility] (Prevnar7[facility] DTAP 2003 Completed [facility] 00:00:00 [facility] Hep B, Adol or Pedi 2003 Completed [facility] Dosage 00:00:00 [facility] HIB 4 Dose Schedule 2003 Completed [facility] 00:00:00 [facility] Polio (IPV/OPV) 2003 Completed [facility] 00:00:00 [facility] Pneumococcal 7 2003 Completed [facility] Conjugate, PCV7 00:00:00 [place] [facility] (Prevnar7) [facility] DTAP 2003 Completed [facility] 00:00:00 [facility] Hep B, Adol or Pedi 2003 Completed [facility] Dosage 00:00:00 [facility] HIB 4 Dose Schedule 2003 Completed [facility] 00:00:00 [facility] Polio (IPV/OPV) 2003 Completed [facility] 00:00:00 [facility] Pneumococcal 7 2003 Completed [facility] Conjugate, PCV7 00:00:00 [place] [facility] (Prevnar7) [facility] DTAP 2003 Completed [facility] 00:00:00 [facility] Hep B, Adol or Pedi 2003 Completed [facility] Dosage 00:00:00 [facility] HIB 4 Dose Schedule 2003 Completed [facility] 00:00:00 [facility] Polio (IPV/OPV) 2003 Completed [facility] 00:00:00 [facility] Pneumococcal 7 2003 Completed [facility] Conjugate, PCV7 00:00:00 [place] [facility] (Prevnar7) [facility] DTAP 2003 Completed [facility] 00:00:00 [facility] Hep B, Adol or Pedi 2003 Completed [facility] Dosage 00:00:00 [facility] HIB 4 Dose Schedule 2003 Completed [facility] 00:00:00 [facility] Polio (IPV/OPV) 2003 Completed [facility] 00:00:00 [facility] Pneumococcal 7 2003 Completed [facility] Conjugate, PCV7 00:00:00 [place] [facility] (Prevnar7) [facility] DTAP 2003 Completed [facility] 00:00:00 [facility] Hep B, Adol or Pedi 2003 Completed [facility] Dosage 00:00:00 [facility] HIB 4 Dose Schedule 2003 Completed [facility] 00:00:00 [facility] Polio (IPV/OPV) 2003 Completed [facility] 00:00:00 [facility] Pneumococcal 7 2003 Completed [facility] Conjugate, PCV7 00:00:00 [place] [facility] (Prevnar7) [facility] DTAP 2003 Completed [facility] 00:00:00 [facility] Hep B, Adol or Pedi 2003 Completed [facility] Dosage 00:00:00 [facility] HIB 4 Dose Schedule 2003 Completed [facility] 00:00:00 [facility] Polio (IPV/OPV) 2003 Completed [facility] 00:00:00 [facility] Pneumococcal 7 2003 Completed [facility] Conjugate, PCV7 00:00:00 [place] [facility] (Prevnar7[facility] DTAP 2003 Completed [facility] 00:00:00 [facility] Hep B, Adol or Pedi 2003 Completed [facility] Dosage 00:00:00 [facility] HIB 4 Dose Schedule 2003 Completed [facility] 00:00:00 [facility] Polio (IPV/OPV) 2003 Completed [facility] 00:00:00 [facility] Pneumococcal 7 2003 Completed [facility] Conjugate, PCV7 00:00:00 [place] [facility] (Prevnar7[facility] DTAP 2003 Completed [facility] 00:00:00 [facility] Hep B, Adol or Pedi 2003 Completed [facility] Dosage 00:00:00 [facility] HIB 4 Dose Schedule 2003 Completed [facility] 00:00:00 [facility] Polio (IPV/OPV) 2003 Completed [facility] 00:00:00 [facility] Pneumococcal 7 2003 Completed [facility] Conjugate, PCV7 00:00:00 [place] [facility] (Prevnar7[facility] DTAP 2003 Completed [facility] 00:00:00 [facility] Hep B, Adol or Pedi 2003 Completed [facility] Dosage 00:00:00 [facility] HIB 4 Dose Schedule 2003 Completed [facility] 00:00:00 [facility] Polio (IPV/OPV) 2003 Completed [facility] 00:00:00 [facility] DTAP 2003 Completed [facility] 00:00:00 [facility] Hep B, Adol or Pedi 2003 Completed [facility] Dosage 00:00:00 [facility] HIB 4 Dose Schedule 2003 Completed [facility] 00:00:00 [facility] Polio (IPV/OPV) 2003 Completed [facility] 00:00:00 [facility] Pneumococcal 7 2003 Completed [facility] Conjugate, PCV7 00:00:00 [place] [facility] (Prevnar7[facility] Pneumococcal 7 2003 Completed [facility] Conjugate, PCV7 00:00:00 [place] [facility] (Prevnar7) [facility] DTAP 2003 Completed [facility] 00:00:00 [facility] Hep B, Adol or Pedi 2003 Completed [facility] Dosage 00:00:00 [facility] HIB 4 Dose Schedule 2003 Completed [facility] 00:00:00 [facility] Polio (IPV/OPV) 2003 Completed [facility] 00:00:00 [facility] Pneumococcal 7 2003 Completed [facility] Conjugate, PCV7 00:00:00 [place] [facility] (Prevnar7[facility] DTAP 2003 Completed [facility] 00:00:00 [facility] Hep B, Adol or Pedi 2003 Completed [facility] Dosage 00:00:00 [facility] HIB 4 Dose Schedule 2003 Completed [facility] 00:00:00 [facility] Polio (IPV/OPV) 2003 Completed [facility] 00:00:00 [facility] Pneumococcal 7 2003 Completed [facility] Conjugate, PCV7 00:00:00 [place] [facility] (Prevnar7[facility] DTAP 2003 Completed [facility] 00:00:00 [facility] Hep B, Adol or Pedi 2003 Completed [facility] Dosage 00:00:00 [facility] HIB 4 Dose Schedule 2003 Completed [facility] 00:00:00 [facility] Polio (IPV/OPV) 2003 Completed [facility] 00:00:00 [facility] Pneumococcal 7 2003 Completed [facility] Conjugate, PCV7 00:00:00 [place] [facility] (Prevnar7[facility] DTAP 2003 Completed [facility] 00:00:00 [facility] Hep B, Adol or Pedi 2003 Completed [facility] Dosage 00:00:00 [facility] HIB 4 Dose Schedule 2003 Completed [facility] 00:00:00 [facility] Polio (IPV/OPV) 2003 Completed [facility] 00:00:00 [facility] Pneumococcal 7 2003 Completed [facility] Conjugate, PCV7 00:00:00 [place] [facility] (Prevnar7[facility] DTAP 2003 Completed [facility] 00:00:00 [facility] Hep B, Adol or Pedi 2003 Completed [facility] Dosage 00:00:00 [facility] HIB 4 Dose Schedule 2003 Completed [facility] 00:00:00 [facility] Polio (IPV/OPV) 2003 Completed [facility] 00:00:00 [facility] Pneumococcal 7 2003 Completed [facility] Conjugate, PCV7 00:00:00 [place] [facility] (Prevnar7[facility] DTAP 2003 Completed [facility] 00:00:00 [facility] Hep B, Adol or Pedi 2003 Completed [facility] Dosage 00:00:00 [facility] HIB 4 Dose Schedule 2003 Completed [facility] 00:00:00 [facility] Polio (IPV/OPV) 2003 Completed [facility] 00:00:00 [facility] Pneumococcal 7 2003 Completed [facility] Conjugate, PCV7 00:00:00 [place] [facility] (Prevnar7[facility] DTAP 2003 Completed [facility] 00:00:00 [facility] Hep B, Adol or Pedi 2003 Completed [facility] Dosage 00:00:00 [facility] HIB 4 Dose Schedule 2003 Completed [facility] 00:00:00 [facility] Polio (IPV/OPV) 2003 Completed [facility] 00:00:00 [facility] Pneumococcal 7 2003 Completed [facility] Conjugate, PCV7 00:00:00 [place] [facility] (Prevnar7[facility] DTAP 2003 Completed [facility] 00:00:00 [facility] Hep B, Adol or Pedi 2003 Completed [facility] Dosage 00:00:00 [facility] HIB 4 Dose Schedule 2003 Completed [facility] 00:00:00 [facility] Polio (IPV/OPV) 2003 Completed [facility] 00:00:00 [facility] Pneumococcal 7 2003 Completed [facility] Conjugate, PCV7 00:00:00 [place] [facility] (Prevnar7[facility] DTAP 2003 Completed [facility] 00:00:00 [facility] Hep B, Adol or Pedi 2003 Completed [facility] Dosage 00:00:00 [facility] HIB 4 Dose Schedule 2003 Completed [facility] 00:00:00 [facility] Polio (IPV/OPV) 2003 Completed [facility] 00:00:00 [facility] Pneumococcal 7 2003 Completed [facility] Conjugate, PCV7 00:00:00 [place] [facility] (Prevnar7) Branch DTAP 2003 Completed University of 00:00:00 [facility] Hep B, Adol or Pedi 2003 Completed Unive rsity of Dosage 00:00:00 [facility] HIB 4 Dose Schedule 2003 Completed Unive rsity of 00:00:00 [facility] DTAP 2003 Completed University of 00:00:00 [facility] Hep B, Adol or Pedi 2003 Completed [facility]ive rsity of Dosage 00:00:00 [facility] HIB 4 Dose Schedule 2003 Completed Unive rsity of 00:00:00 [facility] Polio (IPV/OPV) 2003 Completed Universit y of 00:00:00 [facility] Pneumococcal 7 2003 Completed University of Conjugate, PCV7 00:00:00 [place] [facility] (Prevnar7) [facility] Polio (IPV/OPV) 2003 Completed [facility]it y of 00:00:00 [facility] Pneumococcal 7 2003 Completed University of Conjugate, PCV7 00:00:00 [place] [facility] (Prevnar7) [facility] DTAP 2003 Completed University of 00:00:00 [facility] Hep B, Adol or Pedi 2003 Completed Unive rsity of Dosage 00:00:00 [facility] HIB 4 Dose Schedule 2003 Completed Unive rsity of 00:00:00 [facility] Polio (IPV/OPV) 2003 Completed [facility]it y of 00:00:00 [facility] Pneumococcal 7 2003 Completed University of Conjugate, PCV7 00:00:00 [place] [facility] (Prevnar7) [facility] DTAP 2003 Completed [facility] of 00:00:00 [facility] Hep B, Adol or Pedi 2003 Completed [facility]ive rsity of Dosage 00:00:00 [facility] HIB 4 Dose Schedule 2003 Completed [facility]ive rsity of 00:00:00 [facility] Polio (IPV/OPV) 2003 Completed [facility]it [facility] of 00:00:00 [facility] Pneumococcal 7 2003 Completed University of Conjugate, PCV7 00:00:00 [place] [facility] (Prevnar7) [facility] DTAP 2003 Completed [facility] of 00:00:00 [facility] Hep B, Adol or Pedi 2003 Completed [facility]ive rsity of Dosage 00:00:00 [facility] HIB 4 Dose Schedule 2003 Completed [facility]ive rsity of 00:00:00 [facility] Polio (IPV/OPV) 2003 Completed [facility]it [facility] of 00:00:00 [facility] Pneumococcal 7 2003 Completed University of Conjugate, PCV7 00:00:00 [place] [facility] (Prevnar7) [facility] DTAP 2003 Completed [facility] of 00:00:00 [facility] Hep B, Adol or Pedi 2003 Completed [facility]ive rsity of Dosage 00:00:00 [facility] HIB 4 Dose Schedule 2003 Completed [facility]ive rsity of 00:00:00 [facility] Polio (IPV/OPV) 2003 Completed [facility]it [facility] 00:00:00 [facility] Pneumococcal 7 2003 Completed [facility] of Conjugate, PCV7 00:00:00 [place] [facility] (Prevnar7) [facility] DTAP 2003 Completed [facility] of 00:00:00 [facility] Hep B, Adol or Pedi 2003 Completed [facility]ive rsity of Dosage 00:00:00 [facility] HIB 4 Dose Schedule 2003 Completed [facility]ive rsity of 00:00:00 [facility] Polio (IPV/OPV) 2003 Completed [facility]it [facility] of 00:00:00 [facility] Pneumococcal 7 2003 Completed [facility] of Conjugate, PCV7 00:00:00 [place] [facility] (Prevnar7) [facility] DTAP 2003 Completed [facility] of 00:00:00 [facility] Hep B, Adol or Pedi 2003 Completed [facility]ive [facility] of Dosage 00:00:00 [facility] HIB 4 Dose Schedule 2003 Completed [facility]ive rsity of 00:00:00 [facility] Polio (IPV/OPV) 2003 Completed [facility] 00:00:00 [facility] Pneumococcal 7 2003 Completed [facility] of Conjugate, PCV7 00:00:00 [place] [facility] (Prevnar7) [facility] DTAP 2003 Completed [facility] of 00:00:00 [facility] Hep B, Adol or Pedi 2003 Completed [facility]ive rsity of Dosage 00:00:00 [facility] HIB 4 Dose Schedule 2003 Completed [facility]ive rsity of 00:00:00 [facility] Polio (IPV/OPV) 2003 Completed [facility]it [facility] 00:00:00 [facility] Pneumococcal 7 2003 Completed [facility] of Conjugate, PCV7 00:00:00 [place] [facility] (Prevnar7) [facility] DTAP 2003 Completed [facility] of 00:00:00 [facility] Hep B, Adol or Pedi 2003 Completed [facility]ive rsity of Dosage 00:00:00 [facility] HIB 4 Dose Schedule 2003 Completed [facility]ive rsity of 00:00:00 [facility] Polio (IPV/OPV) 2003 Completed [facility]it [facility] of 00:00:00 [facility] DTAP 2003 Completed [facility] of 00:00:00 [facility] Hep B, Adol or Pedi 2003 Completed [facility] of Dosage 00:00:00 [facility] HIB 4 Dose Schedule 2003 Completed [facility]ive [facility]ity of 00:00:00 [facility] Polio (IPV/OPV) 2003 Completed [facility]it [facility] 00:00:00 [facility] Pneumococcal 7 2003 Completed [facility] of Conjugate, PCV7 00:00:00 [place] [facility] (Prevnar7) [facility] Pneumococcal 7 2003 Completed [facility] of Conjugate, PCV7 00:00:00 [place] [facility] (Prevnar7) [facility] DTAP 2003 Completed [facility] of 00:00:00 [facility] Hep B, Adol or Pedi 2003 Completed [facility]ive rsity of Dosage 00:00:00 [facility] HIB 4 Dose Schedule 2003 Completed [facility]ive rsity of 00:00:00 [facility] Polio (IPV/OPV) 2003 Completed [facility] 00:00:00 [facility] Pneumococcal 7 2003 Completed [facility] of Conjugate, PCV7 00:00:00 [place] [facility] (Prevnar7) [facility] DTAP 2003 Completed [facility] of 00:00:00 [facility] Hep B, Adol or Pedi 2003 Completed [facility] rs[facility] of Dosage 00:00:00 [facility] HIB 4 Dose Schedule 2003 Completed [facility]ive [facility]ity of 00:00:00 [facility] Polio (IPV/OPV) 2003 Completed [facility] 00:00:00 [facility] Pneumococcal 7 2003 Completed [facility] of Conjugate, PCV7 00:00:00 [place] [facility] (Prevnar7) [facility] DTAP 2003 Completed [facility] of 00:00:00 [facility] Hep B, Adol or Pedi 2003 Completed [facility]ive rsity of Dosage 00:00:00 [facility] HIB 4 Dose Schedule 2003 Completed [facility]ive rsity of 00:00:00 [facility] Polio (IPV/OPV) 2003 Completed [facility] 00:00:00 [facility] Pneumococcal 7 2003 Completed [facility] of Conjugate, PCV7 00:00:00 [place] [facility] (Prevnar7) [facility] DTAP 2003 Completed [facility] of 00:00:00 [facility] Hep B, Adol or Pedi 2003 Completed [facility]ive [facility]ity of Dosage 00:00:00 [facility] HIB 4 Dose Schedule 2003 Completed [facility]ive [facility]ity of 00:00:00 [facility] Polio (IPV/OPV) 2003 Completed [facility] 00:00:00 [facility] Pneumococcal 7 2003 Completed [facility] of Conjugate, PCV7 00:00:00 [place] [facility] (Prevnar7) [facility] DTAP 2003 Completed [facility] of 00:00:00 [facility] Hep B, Adol or Pedi 2003 Completed [facility]ive rsity of Dosage 00:00:00 [facility] DTAP 2003 Completed [facility] of 00:00:00 [facility] Hep B, Adol or Pedi 2003 Completed [facility]ive [facility]ity of Dosage 00:00:00 [facility] HIB 4 Dose Schedule 2003 Completed [facility]ive [facility]ity of 00:00:00 [facility] Polio (IPV/OPV) 2003 Completed [facility] of 00:00:00 [facility] Pneumococcal 7 2003 Completed [facility] of Conjugate, PCV7 00:00:00 [place] [facility] (Prevnar7) [facility] HIB 4 Dose Schedule 2003 Completed [facility]ive rsity of 00:00:00 [facility] Polio (IPV/OPV) 2003 Completed [facility] 00:00:00 [facility] Pneumococcal 7 2003 Completed [facility] of Conjugate, PCV7 00:00:00 [place] [facility] (Prevnar7) [facility] DTAP 2003 Completed [facility] of 00:00:00 [facility] Hep B, Adol or Pedi 2003 Completed [facility]ive [facility]ity of Dosage 00:00:00 [facility] HIB 4 Dose Schedule 2003 Completed [facility]ive [facility]ity of 00:00:00 [facility] Polio (IPV/OPV) 2003 Completed [facility] of 00:00:00 [facility] Pneumococcal 7 2003 Completed [facility] of Conjugate, PCV7 00:00:00 [place] [facility] (Prevnar7) [facility] DTAP 2003 Completed [facility] of 00:00:00 [facility] Hep B, Adol or Pedi 2003 Completed [facility]ive rsity of Dosage 00:00:00 [facility] HIB 4 Dose Schedule 2003 Completed [facility]ive [facility]ity of 00:00:00 [facility] Polio (IPV/OPV) 2003 Completed [facility] 00:00:00 [facility] Pneumococcal 7 2003 Completed [facility] of Conjugate, PCV7 00:00:00 [place] [facility] (Prevnar7) [facility] DTAP 2003 Completed [facility] of 00:00:00 [facility] Hep B, Adol or Pedi 2003 Completed [facility]ive rsity of Dosage 00:00:00 [facility] HIB 4 Dose Schedule 2003 Completed [facility]ive rsity of 00:00:00 [facility] Polio (IPV/OPV) 2003 Completed [facility] 00:00:00 [facility] Pneumococcal 7 2003 Completed [facility] of Conjugate, PCV7 00:00:00 [place] [facility] (Prevnar7) [facility] DTAP 2003 Completed [facility] of 00:00:00 [facility] Hep B, Adol or Pedi 2003 Completed [facility]ive [facility] of Dosage 00:00:00 [facility] HIB 4 Dose Schedule 2003 Completed [facility] of 00:00:00 [facility] Polio (IPV/OPV) 2003 Completed [facility] 00:00:00 [facility] Pneumococcal 7 2003 Completed [facility] of Conjugate, PCV7 00:00:00 [place] [facility] (Prevnar7) [facility] DTAP 2003 Completed [facility] of 00:00:00 [facility] Hep B, Adol or Pedi 2003 Completed [facility]ive [facility] of Dosage 00:00:00 [facility] HIB 4 Dose Schedule 2003 Completed [facility]ive [facility]ity of 00:00:00 [facility] Polio (IPV/OPV) 2003 Completed [facility] 00:00:00 [facility] Pneumococcal 7 2003 Completed [facility] of Conjugate, PCV7 00:00:00 [place] [facility] (Prevnar7) [facility] DTAP 2003 Completed [facility] of 00:00:00 [facility] Hep B, Adol or Pedi 2003 Completed [facility]ive [facility]ity of Dosage 00:00:00 [facility] HIB 4 Dose Schedule 2003 Completed [facility]ive rsity of 00:00:00 [facility] Polio (IPV/OPV) 2003 Completed [facility] 00:00:00 [facility] Pneumococcal 7 2003 Completed [facility] of Conjugate, PCV7 00:00:00 [place] [facility] (Prevnar7) [facility] DTAP 2003 Completed [facility] of 00:00:00 [facility] Hep B, Adol or Pedi 2003 Completed [facility]ive [facility]ity of Dosage 00:00:00 [facility] HIB 4 Dose Schedule 2003 Completed [facility]ive [facility]ity of 00:00:00 [facility] Polio (IPV/OPV) 2003 Completed [facility] of 00:00:00 [facility] Pneumococcal 7 2003 Completed [facility] of Conjugate, PCV7 00:00:00 [place] [facility] (Prevnar7) [facility] DTAP 2003 Completed [facility] of 00:00:00 [facility] Hep B, Adol or Pedi 2003 Completed [facility]ive [facility] of Dosage 00:00:00 [facility] HIB 4 Dose Schedule 2003 Completed [facility]ive [facility] of 00:00:00 [facility] Polio (IPV/OPV) 2003 Completed [facility] 00:00:00 [facility] Pneumococcal 7 2003 Completed [facility] of Conjugate, PCV7 00:00:00 [place] [facility] (Prevnar7) [facility] DTAP 2003 Completed [facility] of 00:00:00 [facility] Hep B, Adol or Pedi 2003 Completed [facility]ive rsity of Dosage 00:00:00 [facility] HIB 4 Dose Schedule 2003 Completed [facility]ive [facility] of 00:00:00 [facility] Polio (IPV/OPV) 2003 Completed [facility] 00:00:00 [facility] Pneumococcal 7 2003 Completed [facility] of Conjugate, PCV7 00:00:00 [place] [facility] (Prevnar7) [facility] Hep B, Adol or Pedi 2003 Completed [facility]ive [facility]ity of Dosage 00:00:00 [facility] Hep B, Adol or Pedi 2003 Completed [facility] of Dosage 00:00:00 [facility] Hep B, Adol or Pedi 2003 Completed [facility]ive rsity of Dosage 00:00:00 [facility] Hep B, Adol or Pedi 2003 Completed [facility]ive rsity of Dosage 00:00:00 [facility] Hep B, Adol or Pedi 2003 Completed [facility] rsity of Dosage 00:00:00 [facility] Hep B, Adol or Pedi 2003 Completed [facility] of Dosage 00:00:00 [facility] Hep B, Adol or Pedi 2003 [...] of Dosage 00:00:00 [facility] Vital Signs Vital Name Observation Time Observation Value Comments Source Systolic blood 2023-02-21 00:31:00 124 mm[Hg] [facility] of pressure [facility] Diastolic blood 2023-02-21 00:31:00 83 mm[Hg] [facility] of pressure [facility] Heart rate 2023-02-21 00:31:00 102 /min [facility] Body temperature 2023-02-21 00:31:00 36.67 [facility] Respiratory rate 2023-02-21 00:31:00 16 /min [facility] ers[facility] of [facility] Body height 2023-02-21 00:31:00 177.8 cm [facility] Body weight 2023-02-21 00:31:00 65.681 kg [facility] BMI 2023-02-21 00:31:00 20.78 kg/m2 [facility] Oxygen saturation in 2023-02-21 00:31:00 100 /min University of Arterial blood by [place] [employer] [facility] Pulse oximetry [facility] Systolic blood 2023-01-23 18:12:00 118 mm[Hg] Univer [facility] of pressure [facility] Diastolic blood 2023-01-23 18:12:00 78 mm[Hg] [facility] of pressure [facility] Heart rate 2023-01-23 18:12:00 78 /min [facility] Body temperature 2023-01-23 18:12:00 36.94 [facility] Respiratory rate 2023-01-23 18:12:00 18 /min [facility] Body height 2023-01-23 18:12:00 177.8 cm [facility] Body weight 2023-01-23 18:12:00 63.163 kg [facility] BMI 2023-01-23 18:12:00 19.98 kg/m2 [facility] Oxygen saturation in 2023-01-23 18:12:00 98 /min University of Arterial blood by [employer] [facility] Pulse oximetry Branch Systolic blood 2022-11-17 17:28:00 108 mm[Hg] [facility] of pressure [facility] Diastolic blood 2022-11-17 17:28:00 69 mm[Hg] [facility] of pressure [facility] Heart rate 2022-11-17 17:28:00 83 /min [facility] Body temperature 2022-11-17 17:28:00 36.56 [facility] Respiratory rate 2022-11-17 17:28:00 18 /min [facility] of [facility] Body height 2022-11-17 17:28:00 177.8 cm [facility] Body weight 2022-11-17 17:28:00 64.071 kg [facility] BMI 2022-11-17 17:28:00 20.27 kg/m2 [facility] Oxygen saturation in 2022-11-17 17:28:00 97 /min [facility] of Arterial blood by [facility] Pulse oximetry Branch Systolic blood 2022-08-25 08:19:00 117 mm[Hg] [facility] of pressure [facility] Diastolic blood 2022-08-25 08:19:00 71 mm[Hg] [facility] of pressure [facility] Heart rate 2022-08-25 08:19:00 70 /min [facility] Respiratory rate 2022-08-25 08:19:00 16 /min [facility] of [facility] Oxygen saturation in 2022-08-25 08:19:00 99 /min [facility] of Arterial blood by [facility] Pulse oximetry Branch Body temperature 2022-08-25 07:10:00 36.33 [facility] Body height 2022-08-25 07:10:00 177.8 cm [facility] Body weight 2022-08-25 07:10:00 61.236 kg [facility] BMI 2022-08-25 07:10:00 19.37 kg/m2 [facility] Systolic blood 2022-04-03 21:50:00 124 mm[Hg] [facility] of pressure [facility] Diastolic blood 2022-04-03 21:50:00 85 mm[Hg] [facility] of pressure [facility] Heart rate 2022-04-03 21:50:00 96 /min [facility] Respiratory rate 2022-04-03 21:50:00 20 /min [facility] Oxygen saturation in 2022-04-03 21:50:00 98 /min [facility] Arterial blood by [place] [employer] [facility] P[facility] oxim[facility] Body temperature 2022-04-03 20:01:00 37 [facility] [place] [facility] Body height 2022-04-03 20:01:00 177.8 cm [facility] Body weight 2022-04-03 20:01:00 57.607 kg [facility] BMI 2022-04-03 20:01:00 18.22 kg/m2 [facility] Body mass index 2022-04-03 20:01:00 3.07 % Unive rsity of (BMI) [Percentile] [place] [facility] Per age and sex Branch Systolic blood 2022-03-06 05:55:00 126 mm[Hg] [facility] pressure [facility] Diastolic blood 2022-03-06 05:55:00 86 mm[Hg] [facility] pressure [facility] Heart rate 2022-03-06 05:55:00 106 /min [facility] Body temperature 2022-03-06 05:55:00 37.22 [facility] Respiratory rate 2022-03-06 05:55:00 20 /min [facility] Body height 2022-03-06 05:55:00 177.8 cm [facility] [place] [facility] Body weight 2022-03-06 05:55:00 57.97 kg [facility] BMI 2022-03-06 05:55:00 18.34 kg/m2 [facility] Body mass index 2022-03-06 05:55:00 3.77 % Unive rsity of (BMI) [Percentile] [place] [facility] Per [facility] and sex [facility] Oxygen saturation in 2022-03-06 05:55:00 98 /min [facility] of Arterial blood by [facility] Pulse oximetry Branch Systolic blood 2021-11-10 22:00:00 128 mm[Hg] [facility]iver [facility] of pressure [facility] Diastolic blood 2021-11-10 22:00:00 60 mm[Hg] Unive rsity of pressure [facility] Heart rate 2021-11-10 22:00:00 68 /min Universi ty of [facility] Respiratory rate 2021-11-10 22:00:00 18 /min Univ ersity of [facility] Oxygen saturation in 2021-11-10 22:00:00 100 /min [facility] Arterial blood by [place] [employer] [facility] Pulse oximetry [facility] Body temperature 2021-11-10 18:43:00 37.56 [facility] Body height 2021-11-10 18:43:00 177.8 cm Universi [facility] of [facility] Body weight 2021-11-10 18:43:00 65.772 kg [facility]i [facility] of [facility] BMI 2021-11-10 18:43:00 20.81 kg/m2 [facility] of [facility] Body mass index 2021-11-10 18:43:00 31.43 % Unive rsity of (BMI) [Percentile] [facility] Per age and sex Branch Systolic blood 2021-11-09 21:11:00 111 mm[Hg] Univer sity of pressure [facility] Diastolic blood 2021-11-09 21:11:00 58 mm[Hg] Unive rsity of pressure [facility] Heart rate 2021-11-09 21:09:00 72 /min [facility]i [facility] of [facility] Body temperature 2021-11-09 21:09:00 36.67 [facility] Respiratory rate 2021-11-09 21:09:00 18 /min Univ ersity of [facility] Body weight 2021-11-09 21:09:00 65.772 kg [facility]i [facility] of [facility] Oxygen saturation in 2021-11-09 21:09:00 98 /min [facility] Arterial blood by [place] [employer] [facility] Pulse oximetry [facility] Systolic blood 2021-05-25 00:09:00 104 mm[Hg] Univer [facility]ity of pressure [facility] Diastolic blood 2021-05-25 00:09:00 58 mm[Hg] Unive rsity of pressure [facility] Heart rate 2021-05-25 00:09:00 92 /min [facility]i [facility] of [facility] Body temperature 2021-05-25 00:09:00 37.33 [facility] Respiratory rate 2021-05-25 00:09:00 18 /min [facility] Body height 2021-05-25 00:09:00 177.8 cm [facility] Body weight 2021-05-25 00:09:00 63.821 kg [facility] BMI 2021-05-25 00:09:00 20.19 kg/m2 [facility] Oxygen saturation in 2021-05-25 00:09:00 97 /min [facility] of Arterial blood by [facility] Pulse oximetry Branch Systolic blood 2021-05-24 00:50:00 109 mm[Hg] [facility] of pressure [facility] Diastolic blood 2021-05-24 00:50:00 69 mm[Hg] [facility] of pressure [facility] Heart rate 2021-05-24 00:50:00 94 /min [facility] Body temperature 2021-05-24 00:50:00 37.06 [facility] Body height 2021-05-24 00:50:00 177.8 cm [facility] Body weight 2021-05-24 00:50:00 65.772 kg [facility] BMI 2021-05-24 00:50:00 20.81 kg/m2 [facility] Oxygen saturation in 2021-05-24 00:50:00 98 /min [facility] of Arterial blood by [facility] Pulse oximetry Branch Systolic blood 2021-04-21 21:41:00 118 mm[Hg] [facility] of pressure [facility] Diastolic blood 2021-04-21 21:41:00 75 mm[Hg] [facility] of pressure [facility] Heart rate 2021-04-21 21:41:00 58 /min [facility] Body temperature 2021-04-21 21:41:00 36.78 [facility] Respiratory rate 2021-04-21 21:41:00 17 /min [facility] Body height 2021-04-21 21:41:00 177.8 cm [facility] Body weight 2021-04-21 21:41:00 66.543 kg [facility] BMI 2021-04-21 21:41:00 21.05 kg/m2 [facility] Oxygen saturation in 2021-04-21 21:41:00 98 /min [facility] of Arterial blood by [facility] Pulse oximetry Branch Systolic blood 2021-03-15 14:28:00 119 mm[Hg] [facility] of pressure [facility] Diastolic blood 2021-03-15 14:28:00 81 mm[Hg] [facility] of pressure [facility] Heart rate 2021-03-15 14:28:00 87 /min [facility] Body temperature 2021-03-15 14:28:00 37.33 [facility] Body height 2021-03-15 14:28:00 175.4 cm [facility] Body weight 2021-03-15 14:28:00 68 kg [facility] BMI 2021-03-15 14:28:00 22.10 kg/m2 [facility] Systolic blood 2021-02-17 20:22:00 115 mm[Hg] [facility] of pressure [facility] Diastolic blood 2021-02-17 20:22:00 75 mm[Hg] [facility] of pressure [facility] Heart rate 2021-02-17 20:22:00 71 /min [facility] Body temperature 2021-02-17 20:22:00 36.17 [facility] Respiratory rate 2021-02-17 20:22:00 18 /min [facility] Body weight 2021-02-17 20:22:00 67.223 kg [facility] BMI 2021-02-17 20:22:00 21.89 kg/m2 [facility] Oxygen saturation in 2021-02-17 20:22:00 97 /min [facility] of Arterial blood by [facility] Pulse oximetry Branch Systolic blood 2021-02-11 03:40:00 107 mm[Hg] [facility] Diastolic blood 2021-02-11 03:40:00 60 mm[Hg] [facility] of pressure [facility] Heart rate 2021-02-11 03:40:00 92 /min [facility] Body temperature 2021-02-11 03:40:00 36.67 [facility] [place] [facility] Respiratory rate 2021-02-11 03:40:00 18 /min [facility] [place] [facility] Oxygen saturation in 2021-02-11 03:40:00 99 /min [facility] Arterial blood by [facility] Pulse oximetry Branch Body height 2021-02-11 [...] 97 /min [facility] Arterial blood by [facility] Pulse oximetry Branch Systolic blood 2020-11-16 [...] 97 /min [facility] Arterial blood by [facility] Pulse oximetry Branch Systolic blood 2020-10-08 04:09:00 115 mm[Hg] Univer sity of pressure [place] [facility] Diastolic blood 2020-10-08 04:09:00 70 mm[Hg] Unive rsity of pressure [facility] Heart rate 2020-10-08 04:09:00 83 /min [facility] [place] [facility] Body temperature 2020-10-08 04:09:00 36.67 Gemma Univ ersity of [facility] [place] [facility] Respiratory rate 2020-10-08 04:09:00 20 /min Univ [facility] Body height 2020-10-08 04:09:00 175.3 cm [facility] Body weight 2020-10-08 04:09:00 63.504 kg [facility] [place] [facility] BMI 2020-10-08 04:09:00 20.67 kg/m2 [facility] Oxygen saturation in 2020-10-08 04:09:00 98 /min [facility] Ar[facility]ial blood by [facility] Pulse oximetry Branch Systolic blood 2020-09-08 22:05:00 111 mm[Hg] Univer sity of pressure [facility] Diastolic blood 2020-09-08 22:05:00 68 mm[Hg] Unive rsity of pressure [facility] Heart rate 2020-09-08 22:05:00 73 /min [facility] [place] [facility] Respiratory rate 2020-09-08 22:05:00 20 /min Univ [facility] Body height 2020-09-08 22:05:00 175.3 cm [facility] [place] [facility] Body weight 2020-09-08 22:05:00 66.044 kg [facility] [place] [facility] BMI 2020-09-08 22:05:00 21.50 kg/m2 [facility] Systolic blood 2020-09-06 02:54:00 125 mm[Hg] Univer sity of pressure [facility] Diastolic blood 2020-09-06 02:54:00 74 mm[Hg] Unive rsity of pressure [facility] Heart rate 2020-09-06 02:54:00 66 /min [facility] Body temperature 2020-09-06 02:54:00 36.94 Gemma [facility] Respiratory rate 2020-09-06 02:54:00 20 /min [facility] Body height 2020-09-06 02:54:00 175.3 cm [facility] Body weight 2020-09-06 02:54:00 64.864 kg [facility] BMI 2020-09-06 02:54:00 21.12 kg/m2 [facility] Oxygen saturation in 2020-09-06 02:54:00 100 /min [facility] [place] [facility] Pulse oxim[facility] Branch Systolic blood 2020-08-31 22:12:00 128 mm[Hg] Univer sity of pressure [facility] Diastolic blood 2020-08-31 22:12:00 86 mm[Hg] Unive rsity of pressure [facility] Heart rate 2020-08-31 22:12:00 87 /min [facility] Body temperature 2020-08-31 22:12:00 36.61 Gemma [facility] Respiratory rate 2020-08-31 22:12:00 18 /min Univ [facility] Body weight 2020-08-31 22:12:00 64.864 kg [facility] Oxygen saturation in 2020-08-31 22:12:00 97 /min [facility] [place] [facility] Pulse oximetry Branch Systolic blood 2020-08-23 15:05:00 125 mm[Hg] Univer sity of pressure [facility] Diastolic blood 2020-08-23 15:05:00 75 mm[Hg] Unive rsity of pressure [facility] Heart rate 2020-08-23 15:05:00 85 /min [facility] Body temperature 2020-08-23 15:05:00 36.89 Gemma [facility] Respiratory rate 2020-08-23 15:05:00 16 /min [facility] Body height 2020-08-23 15:05:00 175.3 cm [facility] Body weight 2020-08-23 15:05:00 65.318 kg [facility] BMI 2020-08-23 15:05:00 21.27 kg/m2 [facility] Oxygen saturation in 2020-08-23 15:05:00 97 /min [facility] Arterial blood by [facility] Pulse oximetry Branch Body weight 2020-08-22 11:40:00 65.772 kg [facility] BMI 2020-08-22 11:40:00 20.22 kg/m2 [facility] Systolic blood 2020-08-22 11:39:00 121 mm[Hg] Univer sity of pressure [facility] Diastolic blood 2020-08-22 11:39:00 82 mm[Hg] Unive rsity of pressure [facility] Heart rate 2020-08-22 11:39:00 86 /min [facility] Body temperature 2020-08-22 11:39:00 36.72 Gemma [facility] Respiratory rate 2020-08-22 11:39:00 16 /min Univ [facility] [place] [facility] Body height 2020-08-22 11:39:00 180.3 cm [facility] [place] [facility] Oxygen saturation in 2020-08-22 11:39:00 100 /min [facility] Arterial blood by [facility] Pulse oximetry Branch Systolic blood 2020-08-03 20:17:00 115 mm[Hg] Univer sity of pressure [facility] Diastolic blood 2020-08-03 20:17:00 74 mm[Hg] Unive rsity of pressure [facility] Heart rate 2020-08-03 20:17:00 78 /min [facility] Body temperature 2020-08-03 20:17:00 36.56 Gemma [facility] [place] [facility] Respiratory rate 2020-08-03 20:17:00 16 /min [facility] Body height 2020-08-03 20:17:00 177.8 cm [facility] Body weight 2020-08-03 20:17:00 65.772 kg [facility] BMI 2020-08-03 20:17:00 20.81 kg/m2 [facility] Oxygen saturation in 2020-08-03 20:17:00 98 /min [facility] Arterial blood by [facility] Pulse oximetry Branch Systolic blood 2020-07-30 21:23:00 122 mm[Hg] Univer sity of pressure [facility] Diastolic blood 2020-07-30 21:23:00 74 mm[Hg] Unive rsity of pressure [facility] Heart rate 2020-07-30 21:23:00 68 /min [facility] [place] [facility] Body temperature 2020-07-30 21:23:00 36.61 Gemma [facility] Respiratory rate 2020-07-30 21:23:00 16 /min [facility] [place] [facility] Body height 2020-07-30 21:23:00 175.3 cm [facility] [place] [facility] Body weight 2020-07-30 21:23:00 66.225 kg [facility] [place] [facility] BMI 2020-07-30 21:23:00 21.56 kg/m2 [facility] Oxygen saturation in 2020-07-30 21:23:00 97 /min [facility] [place] [facility] Pulse oximetry Branch Systolic blood 2020-07-08 13:40:00 121 mm[Hg] Univer sity of pressure [facility] Diastolic blood 2020-07-08 13:40:00 71 mm[Hg] Unive rsity of pressure [facility] Heart rate 2020-07-08 13:40:00 81 /min [facility] Body temperature 2020-07-08 13:40:00 36.5 Gemma [facility] Respiratory rate 2020-07-08 13:40:00 20 /min [facility] Body height 2020-07-08 13:40:00 176 cm [facility] [place] [facility] Body weight 2020-07-08 13:40:00 66.225 kg [facility] BMI 2020-07-08 13:40:00 21.38 kg/m2 [facility] Oxygen saturation in 2020-07-08 13:40:00 96 /min [facility] [place] [facility] Pulse oxim[facility] Branch Systolic blood 2020-03-01 19:38:00 108 mm[Hg] Univer sity of pressure [facility] Diastolic blood 2020-03-01 19:38:00 71 mm[Hg] Unive rsity of pressure [facility] Heart rate 2020-03-01 19:38:00 78 /min [facility] Body temperature 2020-03-01 19:38:00 37.28 Gemma [facility] Body height 2020-03-01 19:38:00 172.7 cm [facility] Body weight 2020-03-01 19:38:00 58.968 kg [facility] BMI 2020-03-01 19:38:00 19.77 kg/m2 [facility] Oxygen saturation in 2020-03-01 19:38:00 97 /min [facility] Arterial blood by [facility] Pulse oximetry Branch Systolic blood 2020-01-17 00:21:00 117 mm[Hg] Univer sity of pressure [facility] Diastolic blood 2020-01-17 00:21:00 83 mm[Hg] Unive rsity of pressure [facility] Heart rate 2020-01-17 00:21:00 103 /min [facility] Body temperature 2020-01-17 00:21:00 36.78 Gemma [facility] Respiratory rate 2020-01-17 00:21:00 22 /min [facility] Body height 2020-01-17 00:21:00 172.7 cm [facility] Body weight 2020-01-17 00:21:00 57.153 kg [facility] BMI 2020-01-17 00:21:00 19.16 kg/m2 [facility] Oxygen saturation in 2020-01-17 00:21:00 97 /min [facility] Arterial blood by [facility] Pulse oximetry Branch Systolic blood 2020-01-14 16:00:00 116 mm[Hg] Univer sity of pressure [facility] Diastolic blood 2020-01-14 16:00:00 77 mm[Hg] Unive rsity of pressure [facility] Heart rate 2020-01-14 16:00:00 73 /min [facility] Body temperature 2020-01-14 16:00:00 36.67 Gemma [facility] Respiratory rate 2020-01-14 16:00:00 18 /min Univ [facility] Body weight 2020-01-14 16:00:00 57.743 kg [facility] BMI 2020-01-14 16:00:00 18.80 kg/m2 [facility] Oxygen saturation in 2020-01-14 16:00:00 98 /min [facility] Arterial blood by [facility] Pulse oximetry Branch Systolic blood 2020-01-13 23:27:00 110 mm[Hg] Univer sity of pressure [facility] Diastolic blood 2020-01-13 23:27:00 79 mm[Hg] Unive rsity of pressure [facility] Heart rate 2020-01-13 23:27:00 84 /min [facility] [place] [facility] Body temperature 2020-01-13 23:27:00 37.78 Gemma [facility] Respiratory rate 2020-01-13 23:27:00 18 /min Univ [facility] Body height 2020-01-13 23:27:00 175.3 cm [facility] [place] [facility] Body weight 2020-01-13 23:27:00 59.058 kg [facility] BMI 2020-01-13 23:27:00 19.23 kg/m2 [facility] Oxygen saturation in 2020-01-13 23:27:00 98 /min [facility] by [place] [facility] Pulse oximetry Branch Systolic blood 2020-01-10 18:02:00 128 mm[Hg] Univer sity of pressure [facility] Diastolic blood 2020-01-10 18:02:00 77 mm[Hg] Unive rsity of pressure [facility] Heart rate 2020-01-10 18:02:00 102 /min [facility] Body temperature 2020-01-10 18:02:00 36.94 Gemma [facility] Respiratory rate 2020-01-10 18:02:00 20 /min [facility] Body height 2020-01-10 18:02:00 173.5 cm [facility] [place] [facility] Body weight 2020-01-10 18:02:00 58.6 kg [facility] [place] [facility] BMI 2020-01-10 18:02:00 19.47 kg/m2 [facility] Oxygen saturation in 2020-01-10 18:02:00 99 /min [facility] of Arterial blood by [employer] [facility] Pulse oximetry Branch Systolic blood 2020-01-06 02:40:00 127 mm[Hg] Univer sity of pressure [facility] Diastolic blood 2020-01-06 02:40:00 77 mm[Hg] Unive rsity of pressure [facility] Heart rate 2020-01-06 02:40:00 78 /min [facility] Body temperature 2020-01-06 02:40:00 37 Gemma [facility] Respiratory rate 2020-01-06 02:40:00 17 /min [facility] Body height 2020-01-06 02:40:00 172.7 cm [facility] [place] [facility] Body weight 2020-01-06 02:40:00 44.725 kg [facility] [place] [facility] BMI 2020-01-06 02:40:00 14.99 kg/m2 [facility] Oxygen saturation in 2020-01-06 02:40:00 97 /min [facility] by [place] [facility] Pulse oxim[facility] Branch Systolic blood 2020-01-03 21:31:00 114 mm[Hg] Univer sity of pressure [facility] Diastolic blood 2020-01-03 21:31:00 71 mm[Hg] Unive rsity of pressure [facility] Heart rate 2020-01-03 21:31:00 95 /min [facility] Body temperature 2020-01-03 21:31:00 36.94 Gemma [facility] Respiratory rate 2020-01-03 21:31:00 18 /min [facility] Body height 2020-01-03 21:31:00 172.7 cm [facility] Body weight 2020-01-03 21:31:00 61.326 kg [facility] BMI 2020-01-03 21:31:00 20.56 kg/m2 [facility] Oxygen saturation in 2020-01-03 21:31:00 98 /min [facility] by [place] [facility] P[facility] Branch Systolic blood 2019-07-09 15:23:00 108 mm[Hg] Univer sity of pressure [facility] Diastolic blood 2019-07-09 15:23:00 71 mm[Hg] Unive rsity of pressure [facility] Heart rate 2019-07-09 15:23:00 63 /min [facility] Body temperature 2019-07-09 15:23:00 35.94 Gemma [facility] Respiratory rate 2019-07-09 15:23:00 18 /min [facility] Body height 2019-07-09 15:23:00 175.3 cm [facility] Body weight 2019-07-09 15:23:00 68.312 kg [facility] BMI 2019-07-09 15:23:00 22.24 kg/m2 [facility] Oxygen saturation in 2019-07-09 15:23:00 100 /min University [facility] blood by [facility] Pulse oximetry Branch BP Systolic 2022-10-13 16:12:00 [...] 3+ VW RIGHT 2023-02-21 00:39:57 Helder Henry [facility] POCT URINALYSIS 2023-01-23 18:37:00 Nando [facility] o f [facility] PATIENT FINANCIAL 2023-01-23 18:07:09 Doctor Unassigned, [facility] POLICY [place] [facility] ASSIGNMENT OF BENEFITS 2022-11-17 17:23:20 Doctor Unassdavid, [facility] [place] [facility] CONSENT/REFUSAL FOR 2022-10-12 02:54:29 Doctor Israel [facility] DIAGNOSIS AND TREATMENT [place] [facility] CONSENT/REFUSAL FOR 2022-08-25 07:30:21 Doctor Israel [facility] DIAGNOSIS AND TREATMENT [place] [facility] RAPID STREP SCREEN FOR 2022-08-25 07:30:00 Shaun Driver [facility] GROUP A Medical Branch RAPID INFLUENZA A/B 2022-08-25 07:30:00 Shaun Driver [facility] Medical Branch COVID-19 (ID NOW RAPID 2022-08-25 07:30:00 Shaun Driver [facility] TESTING) Medical Branch CT CHEST PULMONARY 2022-04-03 21:23:47 Raghu Ham [facility] ANGIOGRAM Medical Branch COMP. METABOLIC PANEL 2022-04-03 21:02:00 Raghu Ham [facility] ([id number]) Medical Branch CBC WITH DIFF 2022-04-03 21:02:00 Raghu Ham [facility] [place] CONSENT/REFUSAL FOR 2022-04-03 19:30:18 [facility] DIAGNOSIS AND TREATMENT [place] [facility] NOTICE OF PRIVACY 2022-03-06 05:34:03 Doctor Israel, [facility] [place] [facility] CONSENT/REFUSAL FOR 2022-03-06 05:33:00 Doctor Israel [facility] DIAGNOSIS AND TREATMENT [place] [facility] URINALYSIS 2021-11-10 21:14:00 Vonda Haynes [facility] ASSIGNMENT OF BENEFITS 2021-11-10 18:35:01 Doctor Israel [facility] [place] [facility] CONSENT/REFUSAL FOR 2021-11-10 18:34:23 Doctor Israel [facility] DIAGNOSIS AND TREATMENT [place] [facility] CONSENT/REFUSAL FOR 2021-11-09 20:52:55 Doctor Israel [facility] DIAGNOSIS AND TREATMENT [place] [facility] NOTICE OF PRIVACY 2021-11-09 20:52:34 Doctor Israel [facility] [place] [facility] POCT GRP A STREP 2021-05-25 00:19:00 Ming Hinton [facility] (MOLECULAR) [facility] PEDI SKIN TESTING PANEL 2021-03-15 15:40:00 Jeremi Lopez [facility] XR CHEST 2 VW 2021-02-11 02:41:43 Sami Martinez [facility] CONSENT/REFUSAL FOR 2021-02-11 01:23:56 Doctor Israel [facility] DIAGNOSIS AND TREATMENT [place] [facility] XR HAND 3+ VW RIGHT 2020-10-08 04:49:22 Akhil Mendez [facility]am XR WRIST 3+ VW RIGHT 2020-10-08 04:49:22 Akhil Mendez [facility] NOTICE OF PRIVACY 2020-10-08 04:05:09 Doctor Israel [facility] [place] [facility] CONSENT/REFUSAL FOR 2020-10-08 04:04:42 Doctor Israel [facility] DIAGNOSIS AND TREATMENT [place] [facility] EXTERNAL PROVIDER RECORDS 2020-10-07 06:01:00 Doctor Wood [facility] [place] [facility] XR HAND 3+ VW RIGHT 2020-09-06 03:21:50 Marlon Morales [facility] NOTICE OF PRIVACY 2020-09-06 02:46:06 Doctor Unassigned, [facility] [place] [facility] CONSENT/REFUSAL FOR 2020-09-06 02:45:47 Doctor Israel, [facility] DIAGNOSIS AND TREATMENT [place] [facility] XR HAND 3+ VW RIGHT 2020-08-31 22:52:53 Elissa Navarrete [facility] MENINGOCOCCAL B VACCINE, 2020-08-31 22:28:17 Elissa Navarrete [facility] OMV, 2 DOSE, IM Medical Branch FLU VACC ([id number]), 6+ 2020-08-31 22:28:17 Elissa Navarrete [facility] MONTHS, IM, QUAD Medical Branch ASSIGNMENT OF BENEFITS 2020-08-23 14:56:06 Doctor Unassigned, [facility] [place] [facility] XR HAND 3+ VW RIGHT 2020-08-22 11:54:37 Moody Gr [facility] CONSENT/REFUSAL FOR 2020-08-22 11:30:15 Doctor Israel, [facility] DIAGNOSIS AND TREATMENT [place] [facility] CONSENT/REFUSAL FOR 2020-08-03 20:11:58 Doctor Unassigned, [facility] DIAGNOSIS AND TREATMENT [place] [facility] CBC WITH DIFF 2020-07-12 12:55:00 She Bravo [facility] ASSIGNMENT OF BENEFITS 2020-07-12 12:40:19 Doctor Unassdavid, [facility] Name Medical Branch EXTERNAL PROVIDER RECORDS 2020-06-08 05:01:00 Doctor Israel, [facility] [place] [facility] POCT GRP A STREP 2020-03-01 00:00:00 Ladi Ruano [facility] (MOLECULAR) [facility] Branch XR HAND 3+ VW RIGHT 2020-01-17 00:40:03 Helder Henry [facility] ADC,CLC OR LCC ONLY - 2020-01-14 00:08:00 Domo Christianson [facility] INFLUENZA A & B DIRECT Medical B ranch ANTIGEN XR CHEST 2 VW 2020-01-13 23:57:51 Domo Christianson Emma o [facility] NOTICE OF PRIVACY 2020-01-13 23:12:46 Doctor Israel, [facility] PRACTICES [place] [facility] CONSENT/REFUSAL FOR 2020-01-13 23:12:27 Doctor Unassigned, [facility] DIAGNOSIS AND TREATMENT [place] [facility] POCT FLU A AND B 2020-01-10 18:16:00 Phuc [facility] (MOLECULAR) [facility] POCT GRP A STREP 2020-01-10 18:12:00 Phuc [facility] (MOLECULAR) [facility] POCT FLU A AND B 2020-01-03 21:47:00 Michelle Melo [facility] (MOLECULAR) [facility] MENACTRA (MCV4-D) VACCINE 2019-07-09 16:22:51 Elissa Navarrete [facility] MENINGOCOCCAL B VACCINE, 2019-07-09 16:22:51 Elissa Navarrete [facility] OMV, 2 DOSE, IM [facility] NO SHOW OR MISSED 2019-07-09 15:13:32 Doctor Israel, [facility] APPOINTMENT POLICY [place] [facility] ACKNOWLEDGEMENT EXTERNAL PROVIDER RECORDS 2019-07-02 05:01:00 Doctor Israel, [facility] [place] [facility] Plan of Care Planned Activity Planned Date Details Comments Source Goal Plan of Care Note [code = 87903-2] Goal Plan of Care Note [code = 62158-8] Goal Plan of Care Note [code = 83665-2] Goal Plan of Care Note [code = 08781-2] Goal Plan of Care Note [code = 88728-8] Goal Plan of Care Note [code = 15181-4] Goal Plan of Care Note [code = 46753-2] Encounters Start End Encounter Admission Attending Care Care Encounter Source Date/Time Date/Time Type Type Clinicians Facility Department ID [id number] [place] 14:58:16 [id number] [facility] 2022-01-25 Outpatient [facility] [id number] [place] 13:26:08 [id number] [facility] 2021-08-28 Emergency [facility] [id number] [facility] Emergency [facility] [id number] Univers 10:37:43 [facility] 2021-08-27 Emergency [facility] [id number] Univers 03:57:06 ity of [facility] 2021-08-27 Emergency [facility] [id number] Univers 00:53:49 ity of [facility] 2021-08-26 Emergency [facility] [id number] Univers 21:25:33 ity [facility] 2021-04-21 Inpatient EM EDDOC, HCACL DESI [id number] [facility] 15:48:00 GENERIC 48 [facility] 2020-06-04 Inpatient [facility] DESI [id number] [facility] 21:13:00 39 [facility] 2023-03-01 2023-03-01 Outpatient R PABLO [facility] [id number] Univers 09:30:00 09:30:00 ESTRADA [facility] 2023-02-20 2023-02-20 Outpatient R CARL [facility] [id number] Univers 19:31:17 23:59:00 HELDER [facility] 2023-02-20 2023-02-20 [facility] [id number]..[id number] Univers 19:31:17 23:59:00 Encounter [facility] [id number] ity of [place] 4.2.7.2.686 Jeremi as ILIANA?BLEA [id number] [facility] [address] MEDICAL OFFICE [facility] 2023-02-20 2023-02-20 Urgent Helder Henry [facility] 1..840.11 [id number] Univers 19:20:00 19:40:00 Care Unknown, Attending HEALTH [id number] ity of [place] [id number] Jeremi as ILIANA?BLEA [id number] [facility] [address] MED[facility] OFFICE BUILDING 2023-01-23 2023-01-23 [employer], [facility] 1.2.840.1 [id number] Univers 13:45:00 14:00:00 Visit Unknown, Attending HEALTH [id number] ity of [place] 4.2.7.2.686 [place] ILIANA?BLEA [id number] [facility] [address] MEDICAL OFFICE [facility] 2023-01-23 2023-01-23 [facility] [id number] Univers 13:00:00 13:30:43 DOROTHEA ity [facility] 2023-01-23 2023-01-23 [facility] [id number] Univers 13:00:00 13:30:43 Care Unknown, Attending HEALTH [id number] ity of [place] 4.2.7.2.686 Jeremi as ILIANA?BLEA [id number] [address] OFFICE [facility] 2023-01-23 2023-01-23 Orders Doctor YANA [id number] Univers 00:00:00 00:00:00 Only Unassigned, CORA [id number] ity of [place] [facility] 4.2.7.2.686 Jeremi as [id number] [address] 2023-01-23 2023-01-23 [facility] [id number] Univers 00:00:00 00:00:00 [facility] [id number] it y of [place] 4.2.7.2.686 Jeremi as ILIANA?BLEA [id number] [address] OFFICE [facility] 2022-11-17 2022-11-17 Outpatient R CAYETANO [facility] [id number] Univers 11:40:00 11:48:26 REENU itkay [facility] 2022-11-17 2022-11-17 Urgent Cayetano Biancaalisha [facility] 1.2.840.11 [id number] Univers 11:40:00 11:48:26 Care Unknown, Attending HEALTH [id number] ity of [place] 4.2.7.2.686 Jeremi as ILIANA?BLEA [id number] [address] OFFICE [facility] 2022-11-17 2022-11-17 Orders Doctor YANA [id number] [id number] Univers 00:00:00 00:00:00 Only Unassigned, CORA 350.1.13.10 ity of [place] [facility] 4.2.7.2.686 [facility] [facility] [phone] [facility] [address] 2022-10-13 2022-10-13 Outpatient RONAL [id number] 022 Miguel 16:04:36 16:04:36 [address] 2022-10-13 2022-10-13 Outpatient [id number] 00:00:00 00:00:00 Visit [id number] 2022-10-11 2022-10-11 Emergency X [facility] ERT [id number] Univers 21:22:00 21:29:00 ity of [facility] 2022-10-11 2022-10-11 Emergency [facility] 1.2.802.240 [id number] Univers 21:22:00 21:29:00 AMANDA 350.1.13.10 i ty [facility] 4.2.7.2.686 [facility] [phone] [address] 2022-08-25 2022-08-25 Emergency X [facility] ERT [id number] Univers 02:14:00 03:23:00 SAMI [facility] 2022-08-25 2022-08-25 Emergency PriscillaShaun carrasco [facility] 1.2.840. 114 [id number] Univers 02:14:00 03:23:00 Sami Gallo [facility] 350.1.13.10 ity [facility] 4.2.7.2.686 [facility] [phone] [address] ([facility]) 2022-04-03 2022-04-03 Emergency X [facility] ERT [id number] Univers 15:03:00 16:58:00 RAGHU [facility] 2022-04-03 2022-04-03 Emergency [facility] 1.2.910.577 [id number] Univers 15:03:00 16:58:00 Raghu PATEL 350.1.13.10 ity [facility] 4.2.7.2.686 [facility] [phone] [address] 2022-03-06 2022-03-06 Emergency X [facility] ERT [id number] Univers 00:59:00 02:37:00 SAMI ity [facility] 2022-03-06 2022-03-06 Emergency [facility] 1.2.840.114 [id number] Univers 00:59:00 02:37:00 Sami PATEL 350.1.13.10 ity of [place] 4.2.7.2.[address] [place] [phone] 2021-11-10 2021-11-[address] [facility] [place] ERT [id number] Univers 12:47:00 16:01:00 [facility] 2021-11-10 2021-11-10 Emergency [facility] 1.2.164.590 [id number] Univers 12:47:00 16:01:00 [facility] 350.1.13.10 i ty of [facility] 4.2.7.2.[address] [place] [phone] ([facility]) 2021-11-10 2021-11-10 Letter YANA Flores 1.2.840.114 [id number] Univers 00:00:00 00:00:00 (Out) Suzie SHEPHERD 350.1.13.10 it y [facility] 4.2.7.2.[address] [place] [phone] 2021-11-09 2021-11-09 Emergency X [facility] ERT [id number] Univers 15:11:00 16:02:00 STEVEN [facility] 2021-11-09 2021-11-09 Emergency [facility] 1.2.530.597 [id number] Univers 15:11:00 16:02:00 Steven PATEL 350.1.13.10 i ty of [place] 4.2.7.2.[address] [place] [phone] 2021-06-27 2021-06-27 Outpatient R PREET [facility] [id number] Univers 09:30:00 09:30:00 CLEAVON ity [facility] 2021-06-07 2021-06-07 Letter YANA Flores 1.2.840.114 [id number] Univers 00:00:00 00:00:00 (Out) Suzie Augustin CORA 350.1.13.10 it y of HOSPITAL 4.2.7.2.686 Jeremi as [phone] [address] 2021-06-06 2021-06-06 Outpatient R CORNELIUS, [facility] [id number] Univers 20:00:00 20:00:00 OMSAADIA ity [facility] 2021-06-06 2021-06-06 Laboratory Nurse, [facility] Mp1 Assessment [facility] 1.2.840.114 [id number] Univers 17:04:48 17:19:48 Only Unknown, Attending Chikis 350.1.13.10 ity [place] [address] [place] [phone] 2021-05-26 2021-05-26 Telephone [facility] 1.2.625.773 [id number] Univers 00:00:00 00:00:00 Dorothea [facility] 350.1.13.10 it y of [facility] 4.2.7.2.686 Jeremi as Specialti [phone] Tx dic[address] 2021-05-24 2021-05-24 Outpatient R UNKNOWN, [facility] [id number] Univers 19:15:00 19:15:00 ATTENDING ity [facility] 2021-05-24 2021-05-24 Urgent Ming Hinton [facility] 1.2.840.11 [id number] Univers 18:58:28 19:13:28 Care Unknown, Attending Chikis 350.1.13.10 ity [place] [address] [place] [phone] 2021-05-23 2021-05-23 Urgent Dorothea Collier [facility] 1.2.840.114 [id number] Univers 19:49:37 20:27:44 Care [facility] 350.1.13.10 ity of [place] 4.2.7.2.686 Jeremi as Professio [phone] Tx dical nal [address] 2021-05-23 2021-05-23 Outpatient R HILL, [facility] [id number] Univers 19:40:00 19:40:00 YANA ity of [facility] 2021-04-21 2021-04-21 Urgent ShannonAndrea [facility] 1.2. 840.114 [id number] Univers 16:34:43 17:20:23 Care Unknown, Attending Chikis 350.1.13.[address] [facility] 4.2.7.2.686 [place] [phone] [address] 2021-04-21 2021-04-21 Outpatient R ALEXY [facility] [id number] Univers 17:00:00 17:00:00 ATTENDING ity [facility] 2021-03-15 2021-03-15 Office [facility] 1.2.840.114 [id number] Univers 09:09:03 10:55:23 Visit Cleavon SPECIALTY 350.1.13.10 ity of [facility] 4.2.7.2.686 [facility] [phone] [address] 2021-03-15 2021-03-15 Outpatient R PREET [facility] [id number] Univers 09:30:00 09:30:00 CLEAVON ity of [facility] 2021-02-17 2021-02-17 Office [facility] 1.2.840.114 [id number] Univers 15:17:38 16:28:11 Visit Elissa Patel 350.1.13.10 ity of [place]2.7.2.686 [place] [phone] Tx dical nal [facility] 2021-02-17 2021-02-17 Outpatient R LANDON [facility] [id number] Univers 15:20:00 15:20:00 ELISSA taylor of [facility] 2021-02-10 2021-02-10 Emergency Juan [facility] 1.2.840.114 [id number] Univers 20:38:00 22:45:00 Sami Enrique Amanda 350.1.13.10 ity of [place]2.7.2.686 [place] [phone] [facility] [address] 2021-01-26 2021-01-26 Outpatient Savanna NAVARRETE [facility] [id number] Univers 13:00:00 13:00:00 ELISSA [facility] 2021-01-18 2021-01-18 Patient [facility] 1.2.840.114 [id number] Univers 00:00:00 00:00:00 Outreach Jay PRIMARY 350.1.13.10 i ty of [facility] 4.2.7.2.686 [place] [phone] T[place] dic[address] 2021-01-18 2021-01-18 Patient [facility] 1.2.840.114 [id number] 00:00:00 00:00:00 Outreach Jay PRIMARY 350.1.13.10 [facility] 4.2.7.2.686 PAVILLION [phone] [facility] 2020-11-16 2020-11-16 Office Landon [facility] 1.2.840.114 [id number] Univers 13:51:19 14:30:58 Visit Elissa Patel 350.1.13.10 ity of [place]2.7.2.686 [place] [phone] Tx dical nal 225 [facility] 2020-11-16 2020-11-16 Office [facility] 1.2.840.114 [id number] 13:51:19 14:30:58 Visit Elissa Patel 350.1.13.10 [place] 4.2.7.2.686 Professio [phone] [address] 2020-11-16 2020-11-16 Outpatient Savanna NAVARRETE [facility] [id number] Univers 13:00:00 13:00:00 ELISSA [facility] 2020-10-07 2020-10-08 Emergency Andrea [facility] 1.2.840.114 [id number] Univers 22:14:00 00:15:00 Akhil Patel 350.1.13.10 i ty of [place]2.7.2.686 [place] [phone] [facility] [address] 2020-10-07 2020-10-07 Orders Doctor YANA 1.2.840.114 [id number] Univers 00:00:00 00:00:00 Only Unassigned, CORA 350.1.13.10 [place]y of [place] [facility] 4.2.7.2.686 Jeremi as [phone] [facility] [address] 2020-09-22 2020-09-22 Telephone [facility] 1.2.264.828 [id number] Univers 00:00:00 00:00:00 Elissa Ardon Amanda 350.1.13.10 ity of [place]2.7.2.686 [place] [phone] Tx dical nal 225 [facility] 2020-09-20 2020-09-20 Telephone [facility] 1..840.114 [id number] Univers 00:00:00 00:00:00 She Patel 350.1.13.10 i ty of [place] 4.2.7.2.686 [place] [phone] Tx dical nal 225 [facility] 2020-09-09 2020-09-09 Outpatient R SAMMY [facility] [id number] Univers 09:15:00 09:15:00 CLINT [facility] 2020-09-08 2020-09-08 Office [facility] 1.2.840.114 [id number] Univers 15:58:38 16:40:46 Visit [facility] 350.1.13.10 it y of Surgical 4.2.7.2.686 Jeremi as Specialti [phone] Tx dical es 198 [facility]3] 2020-09-08 2020-09-08 Outpatient [facility] [id number] Univers 15:45:00 15:45:00 ESTRADA kay [facility] 2020-09-05 2020-09-05 Emergency Maryjane Valdivia [facility] 1.2.840.114 [id number] Univers 20:56:00 22:50:00 Estefani Patel 350.1.13.10 i ty of [place].7.2.686 [place] [phone] [facility] [address] 2020-08-31 2020-08-31 Hospital Landon [facility] 1.2.840.114 [id number] Univers 16:43:28 23:59:00 Encounter Elissa Patel 350.1.13.10 ity of [place].7.2.686 [place] [phone] [facility] [address] 2020-08-31 2020-08-31 Billing Only, Adc Pedi Jacob [facility] 1.2.84 0.114 [id number] Univers 16:27:05 16:42:05 Encounter Elissa Navarrete 350.1.1 3.10 ity of [place].2.7.2.686 [place] [phone] Tx dical nal [address] [place] [address] 2020-08-31 2020-08-31 Office [facility] 1.2.840.114 [id number] Univers 16:08:39 16:30:52 Visit Elissa Patel 350.1.13.10 ity of [place] 4.2.7.2.686 [place] [phone] Tx dical nal [address] [place] [address] 2020-08-31 2020-08-31 Outpatient R LANDON [facility] [id number] Univers 16:20:00 16:20:00 ELISSA [facility] 2020-08-23 2020-08-23 Office Landon [facility] 1.2.840.114 [id number] Univers 09:57:24 10:33:56 Visit Elissa Patel 350.1.13.10 ity of [place] 4.2.7.2.686 [place] [phone] Tx dical [address] 2020-08-23 2020-08-23 Outpatient R LANDON [facility] [id number] Univers 09:50:00 09:50:00 ELISSA [facility] 2020-08-23 2020-08-23 Orders Doctor MILLAN 1.2.840.114 [id number] Univers 00:00:00 00:00:00 Only Unassigned, CORA 350.1.13.10 ity of [place] [facility] 4.2.7.2.686 Jeremi as [phone] [address] 2020-08-22 2020-08-22 Emergency [facility] 1.2.049.280 [id number] Univers 06:45:00 07:29:00 Moody Patel 350.1.13.10 i ty of [place].7.2.[place] [phone] [address] 2020-08-22 2020-08-22 Orders Doctor YANA 1.2.840.114 [id number] Univers 00:00:00 00:00:00 Only Unassigned, CORA 350.1.13.10 ity of [place] [facility] 4.2.7.2.686 Jeremi as [phone] [address] 2020-08-03 2020-08-03 Emergency [facility] 1.2.351.468 [id number] Univers 15:22:00 16:06:00 Steven Patel 350.1.13.10 i ty of [place]2.7.2.686 [place] [phone] [address] 2020-08-03 2020-08-03 Telephone [facility] 1.2.840.114 [id number] Univers 00:00:00 00:00:00 She Patel 350.1.13.10 i ty of [place] 4.2.7.2.686 [place] [phone] Tx dic[address] 2020-08-03 2020-08-03 Orders Doctor YANA 1.2.840.114 [id number] Univers 00:00:00 00:00:00 Only Unassigned, CORA 350.1.13.10 ity of [place] [facility] 4.2.7.2.686 Jeremi as [phone] [address] 2020-07-30 2020-07-30 Urgent Provider, [facility] 1.2.840.114 [id number] Univers 16:14:47 16:34:47 [facility] 350.1.13.10 ity of [place] 4.2.7.2.686 Jeremi as Professio [phone] [facility] nal 044 [facility] 2020-07-30 2020-07-30 Outpatient R [facility] [id number] Univers 16:20:00 16:20:00 ity of [facility] 2020-07-19 2020-07-19 Telephone [facility] 1.2.840.114 [id number] Univers 00:00:00 00:00:00 She [place] 350.1.13.10 i ty of [place].7.2.[place] [phone] [facility] 2020-07-16 2020-07-16 Telephone [facility] 1.2.840.114 [id number] Univers 00:00:00 00:00:00 She [place] 350.1.13.10 i ty of [place] 4[place]2.7.2.686 [place] [phone] Tx dical [facility] 225 [facility] 2020-07-14 2020-07-14 Telephone [facility] 1.2.840.114 [id number] Univers 00:00:00 00:00:00 She [place] 350.1.13.10 i ty of [place]2.7.2.686 [place] [phone] [facility] 2020-07-12 2020-07-12 Auditor Tax Isi [facility] 1.2.8 40.114 [id number] Univers 07:40:59 07:55:59 Visit Elissa Navarrete 350.1.13. 10 ity of [place] 4.2.7.2.686 [place] [phone] [facility] 353 [facility] 2020-07-12 2020-07-12 Outpatient R [facility] [id number] Univers 07:30:00 07:30:00 ity of [facility] 2020-07-12 2020-07-12 Orders Doctor MILLAN 1.2.840.114 [id number] Univers 00:00:00 00:00:00 Only Unassigned, CORA 350.1.13.10 ity of [place] [facility] 4.2.7.2.686 Jeremi as [phone] [address] 2020-07-09 2020-07-09 Outpatient [facility] [id number] Univers 14:20:00 14:20:00 SHE ity [facility] 2020-07-08 2020-07-08 Billing [facility] 1.2.840.114 [id number] Univers 08:29:50 09:58:04 Encounter She [place] 350.1.13.10 ity of [place] 4[place]2.7.2.686 [place] [phone] Tx dicvt nal 225 [facility] 2020-07-08 2020-07-08 Office [facility] 1.2.840.114 [id number] Univers 08:14:30 09:56:18 Visit Shejordan [place] 350.1.13.10 i ty of [place] 4.2.7.2.686 [place] [phone] Tx dical nal 225 [facility] 2020-07-08 2020-07-08 Outpatient [facility] [id number] Univers 08:00:00 08:00:00 SHE [facility] 2020-06-08 2020-06-08 Orders Doctor YANA 1.2.840.114 [id number] Univers 00:00:00 00:00:00 Only Unassigned, CORA 350.1.13.10 ity of [place] [facility] 4.2.7.2.686 Jeremi as [phone] [address] 2020-03-01 2020-03-02 Urgent Pob1, Acute Care Clinic [facility] 1. 2.840.114 [id number] Univers 14:20:34 14:03:28 Care Ladi Ruano [facility] 350.1.1 3.10 ity of [place] 4.2.7.2.686 Jeremi as Professio [phone] Tx dical [facility] [address] 2020-03-01 2020-03-01 Outpatient R [facility] [id number] Univers 14:40:00 14:40:00 ity of [facility] 2020-02-26 2020-02-26 Telephone [facility] 1..069.727 [id number] Univers 00:00:00 00:00:00 Elissa A [place] 350.1.13.10 it[place] of [place]2.7.2.686 [place] [phone] Tx dical [address] 2020-02-12 2020-02-12 Telemedici [facility] 1..840.114 [id number] [id number] Univers 08:22:27 14:38:55 ne Visit Elissa Patel 350.1.13.10 ity of [place] 4[place]2.7.2.686 [place] [phone] Tx dic[address] 2020-02-12 2020-02-12 Outpatient R LANDON [facility] [id number] Univers 13:50:00 13:50:00 [facility] 2020-01-22 2020-01-22 Outpatient [facility] [id number] Univers 13:30:00 13:30:00 ELISSA ity [facility] 2020-01-20 2020-01-20 Telephone [facility] 1..416.534 [id number] [id number] Univers 00:00:00 00:00:00 Elissa [place] 350.1.13.10 ity of [place]2.7.2.686 [place] [phone] [address] 2020-01-16 2020-01-16 Outpatient R CARL [facility] [id number] Univers 19:30:00 23:59:00 HELDER ity [facility] 2020-01-16 2020-01-16 [facility] ..840.114 [id number] Univers 19:30:00 23:59:00 Encounter [facility] 350.1.13.10 ity of Surgical 4.2.7.2.686 Jeremi as Specialti [phone] Tx dical 808 [facility]3] 2020-01-16 2020-01-16 Urgent Helder Henry [facility] 1.2.840.11 [id number] Univers 19:21:04 20:03:54 Care Unknown, Attending Health 350.1.13.10 ity of Surgical 4.2.7.2.686 Jeremi as Specialti [phone] Me dical es 370 [facility]3] 2020-01-16 2020-01-16 Hospital Carl [facility] 1.2.840.114 [id number] Univers 19:25:00 19:29:00 Encounter [facility] 350.1.13.10 ity of Surgical 4.2.7.2.686 Jeremi as Specialti [phone] Me dical es 808 [facility]3] 2020-01-14 2020-01-14 Office [facility] 1.2.840.114 [id number] Univers 10:55:24 11:26:49 Visit Elissa Patel 350.1.13.10 it[place]2.7.2.686 [place] [facility] [phone] Me dical nal 225 [facility] 2020-01-14 2020-01-14 Outpatient R LANDON [facility] [id number] Univers 11:00:00 11:00:00 ELISSA taylor [facility] 2020-01-13 2020-01-13 Emergency X [facility] ERT [id number] Univers 18:29:38 20:26:00 DOMO taylor [facility] 2020-01-13 2020-01-13 Emergency [facility] 1.2.840.114 [id number] Univers 18:29:38 20:26:00 Domo Patel 350.1.13.10 i ty of [place]2.7.2.686 [place] [phone] [facility] chen 084 Tram 2020-01-13 2020-01-13 Orders Doctor MILLAN 1.2.840.114 [id number] Univers 00:00:00 00:00:00 Only Unassigned, CORA 350.1.13.10 ity of [place] [facility] 4.2.7.2.686 Jeremi as [phone] [facility] chen 009 Tram 2020-01-10 2020-01-10 Urgent Tyshawn-KishoreTracee [facility] 1. 2.840.114 [id number] Univers 12:57:48 13:12:48 Care Unknown, Attending [facility] 350.1.13.10 ity of [place] 4.2.7.2.686 [place] [phone] [address] 2020-01-10 2020-01-10 Outpatient R UNKNOWN, [facility] [id number] Univers 13:00:00 13:00:00 ATTENDING ity [facility] 2020-01-09 2020-01-09 Telephone [facility] 1.2.583.618 [id number] Univers 00:00:00 00:00:00 Elissa Patel 350.1.13.10 it[place] of [place].7.2.[place] [phone] Tx dic[address] 2020-01-08 2020-01-08 Telephone [facility] 1..840.114 [id number] Univers 00:00:00 00:00:00 She Patel 350.1.13.10 i ty of [place] 4.2.7.2.686 [place] [phone] Tx dical nal 225 [facility] 2020-01-05 2020-01-05 Urgent Michelle Melo [facility] 1.2.840.114 [id number] Univers 21:33:40 22:04:00 Care Unknown, Attending [facility] 350.1.13.10 ity of Surgical 4.2.7.2.686 Jeremi as Specialti [phone] Tx dical es 370 [facility]3] 2020-01-05 2020-01-05 Outpatient R UNKNOWN, [facility] [id number] Univers 21:45:00 21:45:00 ATTENDING ity [facility] 2020-01-03 2020-01-03 Urgent Hudson Wray [facility] 1.2.840.11 4 [id number] Univers 15:30:54 15:45:54 Care Unknown, Attending Health 350.1.13.10 ity of Surgical 4.2.7.2.686 Jeremi as Specialti [phone] Tx dical es 370 [facility]3] 2020-01-03 2020-01-03 Outpatient R ALEXY [facility] [id number] Univers 15:30:00 15:30:00 ATTENDING itkay [facility] 2019-09-29 2019-09-29 Outpatient R LANDON [facility] [id number] Univers 16:34:16 23:59:00 ELISSA taylor [facility] 2019-07-09 2019-07-09 Billing Only, Adc Kwame James [facility] 1.2.84 0.114 [id number] Univers 11:41:16 11:55:54 Encounter Elissa Navarrete 350.1.1 3.10 [place].7.2.[place] [phone] [address] 2019-07-09 2019-07-09 Office Landon [facility] 1.2.840.114 [id number] Univers 10:14:29 11:39:59 Visit Elissa Patel 350.1.13.10 it[place]2.7.2.686 [place] [phone] [address] 2019-07-09 2019-07-09 Orders Doctor YANA 1.2.840.114 [id number] Univers 00:00:00 00:00:00 Only Unassigned, CORA 350.1.13.10 ity of [place] [facility] 4.2.7.2.686 Jeremi as [phone] [address] 2019-07-02 2019-07-02 Orders Doctor YANA 1.2.840.114 [id number] Univers 00:00:00 00:00:00 Only Unassigned, CORA 350.1.13.10 ity of [place] [facility] 4.2.7.2.686 Jeremi as [phone] [address] 2019-06-09 2019-06-09 Telephone Lawrence [facility] 1.2.840.114 [id number] Univers 00:00:00 00:00:00 She Patel 350.1.13.10 i ty [place]2.7.2.[place] [phone] Me dical nal [address] Results [...] 3267) clear Lab Interpretation (test code = 08779-1) Abnormal [facility]. METABOLIC PANEL (08500)2022-04-03 21:24:26 Test Item Value Reference Range Interpretation Comments NA (test code = 141 mmol/L 135-145 9178151396) K (test code = 4.7 mmol/L 3.5-5.0 1211199526) CL (test code = 101 mmol/L 98-108 3536273041) CO2 TOTAL (test code = 20 mmol/L 23-31 L 1947238801) AGAP (test code = 2-16 H 1471075673) BUN (test code = 13 mg/dL 7-23 3987106371) GLUCOSE (test code = 110 mg/dL 70-110 6624226380) CREATININE (test code = 0.88 mg/dL 0.60-1.25 7502251552) TOTAL BILI (test code = 1.0 mg/dL 0.1-1.7 4806806773) CALCIUM (test code = 10.4 mg/dL 8.6-10.6 5620522495) T PROTEIN (test code = 9.3 g/dL 6.3-8.2 H 4055653930) ALBUMIN (test code = 5.7 g/dL 3.5-5.0 H 4662476223) ALK PHOS (test code = 86 U/L 34-122 4090339847) ALTv (test code = 12 U/L 5-50 2-6) AST(SGOT) (test code = 18 U/L 13-40 9528751624) eGFR (test code = mL/min/1.73m2 3021520456) KARI (test code = KARI) Association of [...] tests). Lab Interpretation Abnormal (test code = 41428-4) [facility] WITH [id number] 21:15:47 Test Item Value Reference Range Interpretation Comments WBC (test code = See_Comment [Automated 3790-2) message] The sy stem which generated this [...] (test code = 38.4 fL 38.5-49.0 L 91658-9) RDW-CV (test code = 12.4 % 11.5-14.0 788-0) PLT (test code = See_Comment H [Automated 777-3) message] The sy stem which generated this result transmitted reference range : 133 - 320 10*3/ ?L. The reference r bakari was not used to interpret this result as normal/abnormal . MPV (test code = 10.1 fL 9.3-12.9 97495-0) NRBC/100 WBC (test See_Comment [Automat ed code = [id number]) message] The system which generated this result transmitted reference range : 0.0 - 10.0 /100 WBCs. The refer ence range was not u sed to interpret th is result as normal/abnormal . NRBC x10^3 (test code <0.01 See_Comment [Auto mated = [id number]) message] The s ystem which generated this result transmitted reference range : 10*3/?L. The reference range was not used to interpret this result as normal/abnormal . GRAN MAT (NEUT) % 77.6 % (test code = 770-8) IMM GRAN % (test code 0.20 % = 9610261511) LYMPH % (test code = 15.8 % 736-9) MONO % (test code = 5.8 % 5905-5) EOS % (test code = 0.0 % 713-8) BASO % (test code = 0.6 % 706-2) GRAN MAT x10^3(ANC) 7.05 10*3/uL 1.50-10.30 (test code = 2865874211) IMM GRAN x10^3 (test <0.03 0.00-0.06 code = 4962545194) LYMPH x10^3 (test code 1.44 10*3/uL 0.70-7.40 = 731-0) MONO x10^3 (test code 0.53 10*3/uL 0.00-0.50 H = 742-7) EOS x10^3 (test code = <0.03 0.00-0.40 711-2) BASO x10^3 (test code 0.05 10*3/uL 0.00-0.10 = 704-7) Lab Interpretation Abnormal (test code = 66554-0) [facility]2021-05-25 00:19:00 Test Item Value Reference Range Interpretation Comments POCT GP A STREP (test code = positive Negative - Negative 81325-3) Lab Interpretation (test code = Abnormal 20815-8) [facility] SKIN TESTING [id number] 15:40:00 Applied 40 skin test to Peggy Bowen's back. All antigens supplied by anywayanyday at 1:20. Multi-test application. All skin tests are expressed as horizontal x perpendicular diameter in mm. Histamine (1mg/ml) ?wheal: 4x4 mmSaline: wheal: 0 mmGrass Mix: (GS7) ([place] Blue/Smita, [place] Fescue, Orchard, Perennial [place], Redtop, Sweet Vernal, Leonel) wheal: 0mm;flare:0mm Grass (Bahia): wheal: 0mm;flare:0mm Grass (Bermuda): wheal: 0mm;flare:0mm Grass (Vijay): wheal: 0mm;flare:0mm Ragweed: ?wheal: 0 mm; flare: 0 mmTree (Bahamian Elm): wheal: 0 mm; flare: 0 mm Tree (Torey): wheal: 0 mm; flare: 0 mmTree (Mckinnon):?wheal: 0 mm; flare: 0 mmTree (Pecan): wheal: 0 mm; flare: 0 mmWeed ([place]): ?wheal: 0 mm; flare: 0 mm Cockroach: [...] Fusarium,Mucor) wheal: 0 mm; flare: 0 mm Trenton: (Cocklebur): wheal: 0 mm; flare: 0 mmWeed: (Baccharis): wheal: 0 mm; flare: 0 mmWeed: (Careless/Amaranth): ?wheal: 0 mm; flare: 0 mmWeed: (Portuguese Plantain): wheal: 0 mm; flare: 0 mmWeed: (Justice's Quarter): wheal: 0 mm; flare: 0 mmWeed: (Nettle): wheal: 0 mm; flare: 0 mmWeed: (Pigweed):wheal: 0 mm; flare: 0 mmWeed: (Malawian Thistle): wheal: 0 mm; flare: 0 mmWeed: (Chance Mix): wheal: 0 mm; flare: 0 mmWeed: (Wingscale): wheal: 0 mm; flare: 0 mm Tree (Bayberry/Wax [place]): wheal: 0 mm; flare: 0 mmTree ([place]/Maple): wheal: 0 mm; flare: 0 mmTree (Jennings Elm): wheal: 0 mm; flare: 0 mmTree (Aroda): wheal: 0 mm; flare: 0 mmTree ([place]): wheal: 0 mm; flare: 0 mmTree ([place]): wheal: 0 mm; flare: 0 mmTree (Marion): wheal: 0 mm; flare: 0 mmTree (Sweet Gum): wheal: 0 mm; flare: 0 mmTree (Crosby): wheal: 0 mm; flare: 0 mmTree ([place], black): wheal: 0 mm; flare: 0 mm Positive tests: Histamine, all other [facility] [id number] 15:40:00Applied 40 skin test to Peggy Bowen's back. All antigens supplied by anywayanyday at 1:20. Multi-test application. All skin tests are expressed as horizontal x perpendicular diameter in mm. Histamine (1mg/ml) ?wheal: 4x4 mmSaline: wheal: 0 mmGrass Mix: (GS7) ([place] Blue/Smita, [place] Fescue, Orchard, Perennial [place], Redtop, Sweet Vernal, Leonel) wheal: 0mm;flare:0mm Grass (B[place]ia): wheal: 0mm;flare:0mm Grass ([place]): wheal: 0mm;flare:0mm Grass (Vijay): wheal: 0mm;flare:0mm Ragweed: ?wheal: 0 mm; flar e: 0 mmTree (Bahamian Elm): wheal: 0 mm; flare: 0 mm Tree (Torey): wheal: 0 mm; flare: 0 mmTree (Mckinnon):?wheal: 0 mm; flare: 0 mmTree (Pecan): wheal: 0 mm; flare: 0 mmWeed ([place]): ?wheal: 0 mm; flare: 0 mm Cockroach: [...] Fusarium,Mucor) wheal: 0 mm; flare: 0 mm Trenton: (Cocklebur): wheal: 0 mm; flare: 0 mmWeed: (Baccharis): wheal: 0 mm; flare: 0 mmWeed: (Careless/Amaranth): ?wheal: 0 mm; flare: 0 mmWeed: (Portuguese Plantain): wheal: 0 mm; flare: 0 mmWeed: (Justice's Quarter): wheal: 0 mm; flare: 0 mmWeed: (Nettle): wheal: 0 mm; flare: 0 mmWeed: (Pigweed):wheal: 0 mm; flare: 0 mmWeed: (Malawian Thistle): wheal: 0 mm; flare: 0 mmWeed: (Chance Mix): wheal: 0 mm; flare: 0 mmWeed: (Wingscale): wheal: 0 mm; flare: 0 mm Tree (Bayberry/Wax [place]): wheal: 0 mm; flare: 0 mmTree ([place]/Maple): wheal: 0 mm; flare: 0 mmTree (Jenn[place] Elm): wheal: 0 mm; flare: 0 mmTree (Aroda): wheal: 0 mm; flare: 0 mmTree ([place]): wheal: 0 mm; flare: 0 mmTree ([place]): wheal: 0 mm; flare: 0 mmTree (Marion): wheal: 0 mm; flare: 0 mmTree (Sweet Gum): wheal: 0 mm; flare: 0 mmTree ([place]): wheal: 0 mm; flare: 0 mmTree ([place], black): wheal: 0 mm; flare: 0 mm Positive tests: Histamine, all other tests negative [facility] SKIN TESTING [id number] 15:40:00 Applied 40 skin test to Peggy Bowen's back. All antigens supplied by Ayala at 1:20. Multi-test application. All skin tests are expressed as horizontal x perpendicular diameter in mm. Histamine (1mg/ml) ?wheal: 4x4 mmSaline: wheal: 0 mmGrass Mix: (GS7) ([place] Blue/Smita, [place] Fescue, Orchard, Perennial [place], Redtop, Sweet Vernal, Leonel) wheal: 0mm;flare:0mm Grass (Bahia): wheal: 0mm;flare:0mm Grass ([place]): wheal: 0mm;flare:0mm Grass (Vijay): wheal: 0mm;flare:0mm Ragweed: ?wheal: 0 mm; flare: 0 mmTree (Bahamian Elm): wheal: 0 mm; flare: 0 mm Tree (Torey): wheal: 0 mm; flare: 0 mmTree (Mckinnon):?wheal: 0 mm; flare: 0 mmTree (Pecan): wheal: 0 mm; flare: 0 mmWeed ([place]): ?wheal: 0 mm; flare: 0 mm Cockroach: [...] Fusarium,Mucor) wheal: 0 mm; flare: 0 mm [place]on: (Cocklebur): wheal: 0 mm; flare: 0 mmWeed: (Baccharis): wheal: 0 mm; flare: 0 mmWeed: (Careless/Amaranth): ?wheal: 0 mm; flare: 0 mmWeed: (Portuguese Plantain): wheal: 0 mm; flare: 0 mmWeed: (Justice's Quarter): wheal: 0 mm; flare: 0 mmWeed: (Nettle): wheal: 0 mm; flare: 0 mmWeed: (Pigweed):wheal: 0 mm; flare: 0 mmWeed: (Malawian Thistle): wheal: 0 mm; flare: 0 mmWeed: (Chance Mix): wheal: 0 mm; flare: 0 mmWeed: (Wingscale): wheal: 0 mm; flare: 0 mm Tree (Bayberry/Wax [place]): wheal: 0 mm; flare: 0 mmTree ([place]/Maple): wheal: 0 mm; flare: 0 mmTree (Jennings Elm): wheal: 0 mm; flare: 0 mmTree (Aroda): wheal: 0 mm; flare: 0 mmTree ([place]): wheal: 0 mm; flare: 0 mmTree ([place]): wheal: 0 mm; flare: 0 mmTree (Marion): wheal: 0 mm; flare: 0 mmTree (Sweet Gum): wheal: 0 mm; flare: 0 mmTree (C[place]): wheal: 0 mm; flare: 0 mmTree ([place], black): wheal: 0 mm; flare: 0 mm Positive tests: Histamine, all other tests negativeUnReg[facility] 2 [id number] 03:11:24Impression: No acute abnormalities evident. RL: 460 [...] evident.IMPRESSIONImpression:No acute abnormalities evident.RL: 460End of Report Un[facility] CenterXR [facility]+ VW [id number] 04:14:05 No acute osseous abnormality of the right hand. RL: 460 AFC: [id number] Ordering physician: MARLON MORALES INDICATION: Right hand [...] osseous abnormality of the right hand.RL: 460AF: [id number] signed by Alexa Adams MD, PhD at 09/05/2020 10:14 PM [facility]+ VW [id number] 22:54:40HISTORY: Self inflicted injury, persistent swelling. FINDINGS: [...] No acute fracture or dislocation in right hand.[facility] WITH [id number] 13:16:00 Test Item Value Reference Range Interpretation Comments WBC (test code = See_Comment [Automated 3590-2) message] The sy stem which generated this result transmitted reference range : 4.50 - 13.50 10*3/?L. The reference range was not used to interpret this result as normal/abnormal . RBC (test code = See_Comment H [Automated 259-8) message] The sy stem which generated this [...] (test code = 36.5 fL 38.5-49 L 28595-6) RDW-CV (test code = 12.2 % 11.5-14 788-0) PLT (test code = See_Comment [Automated 777-3) message] The sy stem which generated this result transmitted reference range : 133 - 320 10*3/ ?L. The reference r bakari was not used to interpret this result as normal/abnormal . MPV (test code = 10.2 fL 9.3-12.9 82573-1) NRBC/100 WBC (test See_Comment [Automat ed code = 8365528876) message] The system which generated this result transmitted reference range : 0.0 - 10.0 /100 WBCs. The refer ence range was not u sed to interpret th is result as normal/abnormal . NRBC x10^3 (test code <0.01 See_Comment [Auto mated = 8600975669) message] The s ystem which generated this result transmitted reference range : 10*3/?L. The reference range was not used to interpret this result as normal/abnormal . GRAN MAT (NEUT) % 45.2 % (test code = 770-8) IMM GRAN % (test code 0.00 % = 9960114256) LYMPH % (test code = 44.6 % 736-9) MONO % (test code = 7.7 % 5905-5) EOS % (test code = 1.9 % 713-8) BASO % (test code = 0.6 % 706-2) GRAN MAT x10^3(ANC) 3.06 10*3/uL 1.5-10.3 (test code = 7660880032) IMM GRAN x10^3 (test <0.03 0-0.06 code = 0042689995) LYMPH x10^3 (test code 3.02 10*3/uL 0.7-7.4 = 731-0) MONO x10^3 (test code 0.52 10*3/uL 0-0.5 H = 742-7) EOS x10^3 (test code = 0.13 10*3/uL 0-0.4 711-2) BASO x10^3 (test code 0.04 10*3/uL 0-0.1 = 704-7) Lab Interpretation Abnormal (test code = 91072-8) [facility]- XR ANKLE 3 + V [id number] 22:42:00 FAX: Cruz Hanna MD [phone] Tilly: St: [facility] FAX: Uriel Cook MD [phone] ------- Name: BOWENKRISTYEDER JIMENEZEN [facility] : 2005 Age/S: 14/M [address] [place] [address] Unit #: [id number] Loc: [place] [address] Phys: Uriel Cook MD Acct: [id number] Dis Date: Status: REG ER PHONE #: Exam Date: 06/04/2020 [facility] FAX #: [phone] Reason: injury to ankle EXAMS: CPT CODE: [id number] XR ANKLE 3 + V LT 80874 Procedure: Left Ankle Radiographs. Clinical Indication: Left [...] By: RosinaRRogerTDO Orig Print D/T: S: 06/04/2020 (7085) PAGE 1 Signed ReportPOCT GRP A STREP (MOLECULAR)2020-03-01 19:46:00 Test Item Value Reference Range Interpretation Comments POCT GP A STREP (test code = pos Negative - Negative 13931-0) [facility] ([facility]LECULAR)2020-03-01 19:46:00 Test Item Value Reference Range Interpretation Comments POCT GP A STREP (test code = pos Negative - Negative 35839-6) [facility]+ VW [id number] 00:54:09 No acute bony abnormality. Preliminary Report [...] reviewed this study and agree with the abovereport.[facility] ADC,CLC OR LCC ONLY - INFLUENZA A & B DIRECT [id number] 00:45:00 Test Item Value Reference Range Interpretation Comments Influenza A (test code = 71861-9) Negative Negative Influenza B (test code = 28364-4) Negative Negative Lab Interpretation (test code = Normal 11846-8) [facility] CHEST 2 [id number] 00:33:36No acute cardiopulmonary disease RL: 6190 End [...] is normal.IMPRESSIONNo acutecardiopulmonary diseaseRL: 6190End of report [facility])2020-01-10 18:29:00 Test Item Value Reference Range Interpretation Comments POCT INFLUENZA A (test negative Negative - code = 3840) Negative POCT INFLUENZA B (test negative Negative - code = 3841) Negative KARI (test code = KARI) accurate development and interpretation of all internal controls Lab Interpretation Normal (test code = 48083-2) [facility] acute hospital GRP A STREP (MOLECULAR)2020-01-10 18:19:00 Test Item Value Reference Range Interpretation Comments POCT GP A STREP (test positive Negative - code = 03166-8) Negative KARI (test code = KARI) accurate development and interpretation of all internal controls Lab Interpretation Abnormal (test code = 30943-4) General acute hospital FLU A AND B (MOLECULAR)2020-01-03 21:57:00 Test Item Value Reference Range Interpretation Comments POCT INFLUENZA A (test neg Negative - code = 3840) Negative POCT INFLUENZA B (test neg Negative - code = 3841) Negative KARI (test code = KARI) accurate development and interpretation of all internal controls Lab Interpretation Normal (test code = 40333-8) [facility] Notes Date/Time Note Provider Source 2020-06-04 22:17:00-00:00 [facility] ([facility]) EMERGENCY PROVIDER REPORT REPORT#:[id number] REPORT STATUS: Signed DATE:06/04/20 TIME: 2216 PATIENT: PEGGY BOWEN UNIT #: [id number] ROOM/BED: AGE: 14 SEX: M PCP PHYS: Cruz Crow MD SERVICE AUTHOR: Lenin Caicedo DIRECTOR FRAUD * ALL edits or amendments must be made on the iBio/computer document * HPI-Ankle Prob/Inj Peds General Initial Greet Date/Time 06/04/202151 Presentation Chief Complaint Pain L Free Text HPI Notes Free Text HPI Notes 14-year-old male presents wi th mother with complaint of pain to his left ankle. States he was skateboarding just prior t o arrival and landed wrong on his left ankle causing it to invert and having immediate pop and pain. Has not taken anything for the pain and currently refu ses to take any medication. States his PCP is Dr. Ferguson his vaccines are up-to-date. No significant past medical history Review of Systems ROS Statements All systems rev neg except as marked. Review of Systems Constitutional Denies: Chills, Fever. Musculoskeletal Reports: Extremity pain, Joint pain. Skin Reports: Swelling. Denies: Contusion. Neurologic Denies: Numbness. Past Medical History - Peds Stated Complaint LEFT ANKLE INJURY Allergies Coded Allergies: codeine (Intermediate, "SEEING THINGS" 12/25/14) Home Medications Reported Medications LISDEXAMFETAMINE (VYVANSE) 30 MG PO DAILY Additional Medical History None Additional Surgical History LUE surgery w/ hardware Smoking status for patients 13 years old or olde r: Never Smoker Additional Social History here with aunt Physical Exam Vital Signs Vital Signs First Documented: Result Date Time Pulse Ox 99 06/04 2122 B/P 131/68 06/04 2122 B/P Mean 89 06/04 2122 O2 Delivery Room air 06/04 2122 Temp 37.0 06/04 2122 Pulse 94 06/04 2122 Resp 16 06/04 2122 Last Documented: Result Date Time Pulse Ox 99 06/04 2122 B/P 131/68 06/04 2122 B/P Mean 89 06/04 2122 O2 Delivery Room air 06/04 2122 Temp 37.0 06/04 2122 Pulse 94 06/04 2122 Resp 16 06/04 2122 Review of Vital Signs Reviewed Focused PE General/Const General/Const Awake, Alert, No apparent distres s MS Ankle/Foot Text/Dict Note Tenderness to the left lateral malleolus, painfu l range of motion. Skin Skin Atraumatic, Color NL, No rash, Warm, Dry, Intact Neurologic Neurologic Orientation NL for age, Speech NL fo r age Interpretation Diagnostics Lab Results Interpretation Results Recent Impressions: RADIOLOGY - XR ANKLE 3 + V LT 06/04 2235 Report Impression - Status: SIGNED Entered: 06/04/20202244 IMPRESSION: 1. No fractures or dislocation. SL: OCO-H Impression By: Kenyetta Tidwell Re-Evaluation MDM Re-Evaluation/Progress Re-Evaluation/Progress Text/Dict Note No acute bony injury seen on x-ray. Rahat wrap to the site can continue using crutches that he came with. Tylenol ibuprofen as needed for pain. Follow-up with PCP. Patient Discharge Departure Vital Signs/Condition Vital Signs First Documented: Result Date Time Pulse Ox 99 06/04 2122 B/P 131/68 06/04 2122 B/P Mean 89 06/04 2122 O2 Delivery Room air 06/04 2122 Temp 37.0 06/04 2122 Pulse 94 06/04 2122 Resp 16 06/04 2122 Last Documented: Result Date Time Pulse Ox 99 06/04 2122 B/P 131/68 06/04 2122 B/P Mean 89 06/04 2122 O2 Delivery Room air 06/04 2122 Temp 37.0 06/04 2122 Pulse 94 06/04 2122 Resp 16 06/04 2122 All vital signs available at the time of this en try have been reviewed. Condition Improved Clinical Impression Clinical Impression Primary Impression: Left ankle sprain Disposition Decision Discharge )( Discharged to Home Yes )( Time 225 )( Date 06/04/20 Discharge/Care Plan Counseled Regarding Diagnosis, Imaging studies, Need for follow-up, When to return to ED Referrals Cruz Crow MD (PCP/Family) Electronically Signed by Lenin Caicedo NP on 06/17 at 0634 RPT #:[id number] END OF REPORT 2020-06-04 22:17:00-00:00 [facility] ([facility] EMERGENCY PROVIDER REPORT REPORT#:[id number] REPORT STATUS: Signed DATE:06/04/20 TIME: 2216 PATIENT: PEGGY BOWEN UNIT #: [id number] ROOM/BED: AGE: 14 SEX: M PCP PHYS: Cruz Crow MD SERVICE AUTHOR: Lenin Caicedo DIRECTOR FRAUD * ALL edits or amendments must be made on the iBio/computer document * Lenin Caicedo 06/04/202216: HPI-Ankle Prob/Inj Peds Presentation Chief Complaint Pain L Free Text HPI Notes Free Text HPI Notes 14-year-old male presents wi th mother with complaint of pain to his left ankle. States he was skateboarding just prior t o arrival and landed wrong on his left ankle causing it to invert and having immediate pop and pain. Has not taken anything for the pain and currently refu ses to take any medication. States his PCP is Dr. Ferguson his vaccines are up-to-date. No significant past medical history Review of Systems ROS Statements All systems rev neg except as marked. Review of Systems Constitutional Denies: Chills, Fever. Musculoskeletal Reports: Extremity pain, Joint pain. Skin Reports: Swelling. Denies: Contusion. Neurologic Denies: Numbness. Past Medical History - Peds Stated Complaint LEFT ANKLE INJURY Allergies Coded Allergies: codeine (Intermediate, "SEEING THINGS" 12/25/14) Home Medications Reported Medications LISDEXAMFETAMINE (VYVANSE) 30 MG PO DAILY Additional Medical History None Additional Surgical History LUE surgery w/ hardware Smoking status for patients 13 years old or olde r: Never Smoker Additional Social History here with aunt Physical Exam Vital Signs Vital Signs First Documented: Result Date Time Pulse Ox 99 06/04 2122 B/P 131/68 06/04 2122 B/P Mean 89 06/04 2122 O2 Delivery Room air 06/04 2122 Temp 98.6 06/04 2122 Pulse 94 06/04 2122 Resp 16 06/04 2122 Last Documented: Result Date Time Pulse Ox 99 06/04 2122 B/P 131/68 06/04 2122 B/P Mean 89 06/04 2122 O2 Delivery Room air 06/04 2122 Temp 98.6 06/04 2122 Pulse 94 06/04 2122 Resp 16 06/04 2122 Review of Vital Signs Reviewed Focused PE General/Const General/Const Awake, Alert, No apparent distre ss MS Ankle/Foot Text/Dict Note Tenderness to the left lateral malleolus, painfu l range of motion. Skin Skin Atraumatic, Color NL, No rash, Warm, Dry, Intact Neurologic Neurologic Orientation NL for age, Speech NL fo r age Interpretation Diagnostics Lab Results Interpretation Results Recent Impressions: RADIOLOGY - XR ANKLE 3 + V LT 06/04 2235 Report Impression - Status: SIGNED Entered: 06/04/20202244 IMPRESSION: 1. No fractures or dislocation. SL: OCO-H Impression By: Kenyetta Tidwell Re-Evaluation MDM Re-Evaluation/Progress Re-Evaluation/Progress Text/Dict Note No acute bony injury seen on x-ray. Rahat wrap to the site can continue using crutches that he came with. Tylenol ibuprofen as needed for pain. Follow-up with PCP. Patient Discharge Departure Vital Signs/Condition Vital Signs First Documented: Result Date Time Pulse Ox 99 06/04 2122 B/P 131/68 06/04 2122 B/P Mean 89 06/04 2122 O2 Delivery Room air 06/04 2122 Temp 98.6 06/04 2122 Pulse 94 06/04 2122 Resp 06/04 Last Documented: Result Date Time Pulse Ox 99 06/04 2122 B/P 131/68 06/04 2122 B/P Mean 89 06/04 2122 O2 Delivery Room air 06/04 2122 Temp 98.6 06/04 2122 Pulse 94 06/04 2122 Resp 16 06/04 2122 All vital signs available at the time of this en try have been reviewed. Condition Improved Clinical Impression Clinical Impression Primary Impression: Left ankle sprain Disposition Decision Discharge )( Discharged to Home Yes )( Time 2252 )( Date 06/04/20 Discharge/Care Plan Counseled Regarding Diagnosis, Imaging studies, Need for follow-up, When to return to ED Referrals Cruz Crow MD (PCP/Family) Wan Briggs. 06/05/20 1322: HPI-Ankle Prob/Inj Peds General Initial Greet Date/Time 06/04/202151 Patient Discharge Departure Supervising Physician Note MidLv Saw Pt Alone I have reviewed the PA/DIRECTOR FRAUD's note and plan of car e. I was available for consultation as needed at al l times during the patient's visit in the emergency department. I agree with the clinical impression , plan and disposition. Electronically Signed by Lenin Caicedo NP on 06/17 at 0634 Electronically Signed by Wan Briggs MD on 06/05 at 1322 RPT #:[id number] END OF REPORT
[2023-04-02 10:50] LABS: Absolute Lymphocytes (CBC) 1.6 K/uL (0.7-4.9); Hematocrit 46.3 % (39.6-49.0); Lymphocytes % 22.1 % (15.3-44.8); MCV 83.8 fL (80-100); MPV 7.8 fL (7.6-11.3); RBC Red Blood Cell Count 5.52 M/uL (4.33-5.43)
[2023-04-02] MEDS ORDERED: FAMOTIDINE 20 MG/2 ML VIAL IV ONE (10:51)
[2023-04-02] MEDS ORDERED: NA CHLORIDE 0.9% 1,000 ML ONE (10:51)
[2023-04-02] MEDS ORDERED: NA CHLORIDE 0.9% 1,000 ML with THIAMINE HCL 100 MG, FOLIC ACID 1 MG, MULTIVITAMINS INJ ... IV SCH ×4 (11:00)
[2023-04-02 11:10] LABS: Albumin 4.6 g/dL (3.4-5.0); Bilirubin Total 0.5 mg/dL (0.2-1.0); Potassium 3.2 mEq/L (3.5-5.1); Protein, Total 8.5 g/dL (6.4-8.2)
--- NOTE | 2023-04-02 13:16 | EDPHYS ---
Physician Documentation [facility] Name: Peggy Piper Age: 17 yrs Sex: Male : 2005 Arrival Date: 04/02/2023 Time: 09:36 Bed 16 Private MD: ED Physician Raul Forbes HPI: 04/02 10:03 This 17 yrs old Male presents to ER via Ambulatory with complaints of ETOH Abuse. snw 10:03 Onset: The symptoms/episode began/occurred and became persistent this morning. snw Modifying factors: The patient symptoms are alleviated by nothing, the patient symptoms are aggravated by drinking. The patient has experienced similar episodes in the past, multiple times. It is unknown whether or not the patient has recently seen a physician. Historical: - Allergies: 09:49 Bees; hb 09:49 Codeine; hb - PMHx: 09:49 ADD/ADHD; Asthma; Bronchitis; Cannabinoid Hyperemesis Syndrome; PTSD; hb - PSHx: 09:49 L arm SX; hb - Immunization history:: Adult Immunizations up to date. - Social history:: Smoking status: Patient denies any tobacco usage or history of. ROS: 10:02 Eyes: Negative for injury, pain, redness, and discharge, ENT: Negative for injury, snw pain, and discharge, Neck: Negative for injury, pain, and swelling, Cardiovascular: Negative for chest pain, palpitations, and edema, Respiratory: Negative for shortness of breath, cough, wheezing, and pleuritic chest pain. 10:02 Back: Negative for injury and pain, : Negative for injury, bleeding, discharge, and swelling, MS/Extremity: Negative for injury and deformity, Neuro: Negative for headache, weakness, numbness, tingling, and seizure, Psych: Negative for depression, anxiety, suicide ideation, homicidal ideation, and hallucinations. 10:02 Constitutional: Positive for body aches, malaise, poor PO intake. 10:02 Abdomen/GI: Positive for nausea, vomiting. 10:02 Skin: Positive for dry. Exam: 10:02 Head/Face: Normocephalic, atraumatic. Eyes: Pupils equal round and reactive to light, snw extra-ocular motions intact. Lids and lashes normal. Conjunctiva and sclera are non-icteric and not injected. Cornea within normal limits. Periorbital areas with no swelling, redness, or edema. 10:02 Neck: Trachea midline, no thyromegaly or masses palpated, and no cervical lymphadenopathy. Supple, full range of motion without nuchal rigidity, or vertebral point tenderness. No Meningismus. Chest/axilla: Normal chest wall appearance and motion. Nontender with no deformity. No lesions are appreciated. Cardiovascular: Regular rate and rhythm with a normal S1 and S2. No gallops, murmurs, or rubs. Normal PMI, no JVD. No pulse deficits. Respiratory: Lungs have equal breath sounds bilaterally, clear to auscultation and percussion. No rales, rhonchi or wheezes noted. No increased work of breathing, no retractions or nasal flaring. Abdomen/GI: Soft, non-tender, with normal bowel sounds. No distension or tympany. No guarding or rebound. No evidence of tenderness throughout. Back: No spinal tenderness. No costovertebral tenderness. Full range of motion. Skin: Warm, dry with normal turgor. Normal color with no rashes, no lesions, and no evidence of cellulitis. MS/ Extremity: Pulses equal, no cyanosis. Neurovascular intact. Full, normal range of motion. Neuro: Awake and alert, GCS 15, oriented to person, place, time, and situation. Cranial nerves II-XII grossly intact. Motor strength 5/5 in all extremities. Sensory grossly intact. Cerebellar exam normal. Normal gait. Psych: Awake, alert, with orientation to person, place and time. Behavior, mood, and affect are within normal limits. 10:02 Constitutional: The patient appears alert, awake, listless, uncomfortable. 10:02 ENT: TM's: are normal, Nose: is normal, Mouth: is normal, Voice: is normal. Vital Signs: 09:47 BP 135 / 91; Pulse 96; Resp 18; Temp 98.4; Pulse Ox 98% on R/A; Weight 58.97 kg; Height hb 5 ft. 10 in. ; Pain 0/10; 12:54 BP 118 / 85; Pulse 93; Resp 16; Pulse Ox 100% ; mb9 09:47 Body Mass Index 18.65 (58.97 kg, 177.8 cm) hb 09:47 Pain Scale: Adult hb MDM: 09:43 Patient medically screened. snw 13:15 Differential diagnosis: viral Infection, bacterial infection, UTI, volume depletion, snw drug abuse. Data reviewed: vital signs, nurses notes, lab test result(s). Historians other than the Patient: Parent: Mom. Counseling: I had a detailed discussion with the patient and/or guardian regarding: the historical points, exam findings, and any diagnostic results supporting the discharge/admit diagnosis, the presence of at least one elevated blood pressure reading (>120/80) during this emergency department visit, lab results, the need for outpatient follow up, for definitive care, to return to the emergency department if symptoms worsen or persist or if there are any questions or concerns that arise at home. Response to treatment: the patient's symptoms have markedly improved after treatment. Special discussion: Based on the patient's Hx, exam, and Dx evaluation, there is no indication for emergent surgery or inpatient Tx. It is understood by the patient/guardian that if the Sx's persist or worsen they need to return immediately for re-evaluation. I have referred the patient to see his PCP for further evaluation of high blood pressure. Based on the history and exam findings, there is no indication for further emergent testing or inpatient evaluation. I discussed with the patient/guardian the need to see the primary care provider for further evaluation of the symptoms. I discussed with the patient/guardian the need to see the psychiatrist for further evaluation of the symptoms. 04/02 09:41 Order name: Urine W/Microscopic (UAM); Complete Time: 13:27 snw 04/02 10:02 Order name: CBC with Diff; Complete Time: 10:54 snw 04/02 10:02 Order name: CMP; Complete Time: 11:17 snw 04/02 10:02 Order name: Lipase; Complete Time: 11:17 snw 04/02 10:02 Order name: ETOH Level; Complete Time: 11:17 snw 04/02 10:02 Order name: IV Saline Lock; Complete Time: 10:36 snw 04/02 10:02 Order name: Labs collected and sent; Complete Time: 10:36 snw Administered Medications: 13:56 Discontinued: Potassium Chloride IV 20 mEq IV at calculated rate once; administer over ap3 1-2 hours 11:01 Drug: NS 0.9% IV 1000 ml Route: IV; Rate: 1 bolus; Site: right antecubital; ap3 12:25 Follow up: IV Status: Completed infusion ap3 11:01 Drug: Famotidine IVP 20 mg Route: IVP; Site: right antecubital; ap3 11:34 Follow up: Response: No adverse reaction ap3 11:34 Drug: Banana Bag - (NS 0.9% IV 1000 ml, foLIC Acid IVPB 1 mg, Thiamine IV 100 mg, ap3 Multivitamin IV 1 amp) Route: IV; Rate: calculated rate; Site: right antecubital; 13:36 Follow up: Response: No adverse reaction; IV Status: Completed infusion mb9 13:36 Drug: Potassium Chloride IV 20 mEq Route: IV; Rate: calculated rate; Site: right mb9 antecubital; 13:56 Drug: Potassium PO Effervescent Tablet 50 mEq Route: PO; ap3 13:56 Follow up: Response: No adverse reaction ap3 Disposition: 14:54 Co-signature as Attending Physician, Raul Forbes MD I reviewed the patient's care rt provided by the Advanced Practice Provider and agree with the diagnosis and treatment plan. Disposition Summary: 04/02/23 13:15 Discharge Ordered Location: Home snw Condition: Stable snw Diagnosis - Dehydration snw Followup: snw - With: Emergency Department - When: As needed - Reason: Worsening of condition Followup: snw - With: Private Physician - When: 2 - 3 days - Reason: Recheck today's complaints, Continuance of care, Re-evaluation by your physician Discharge Instructions: - Discharge Summary Sheet snw - Alcohol Intoxication snw - Alcohol Withdrawal Syndrome snw - Dehydration, Adult snw - Alcohol Abuse and Nutrition snw - Rehydration, Adult snw - Alcohol Abuse and Dependence Information, Adult snw Forms: - Medication Reconciliation Form snw - Thank You Letter snw - Antibiotic Education snw - Prescription Opioid Use snw - Work release form ap3 Prescriptions: - Folic Acid 1 mg Oral Tablet - take 1 tablet by ORAL route once daily; 30 tablet; Refills: 0, Product snw Selection Permitted - promethazine 25 mg Oral Tablet - take 1 tablet by ORAL route every 6 hours As needed; 20 tablet; Refills: 0, snw Product Selection Permitted Signatures: Dispatcher [employer] Radha Nova FNP-C ASSET PROTECTION PROFESSIONAL-Harrisonw Paz Medina RN RN hb Prokisch, Amanda, RN RN ap3 Maral Martinez, RN RN mb9 Raul Forbes MD MD rt
--- NOTE | 2023-04-02 13:16 | ER ---
Nurse's Notes [facility] Name: Peggy Piper Age: 17 yrs Sex: Male : 2005 Arrival Date: 04/02/2023 Time: 09:36 Bed 16 Private MD: Diagnosis: Dehydration Presentation: 04/02 09:47 Chief complaint: Drank "a lot of alcohol" Sunday, then again last night, does not hb recall how much, now c/o dizziness, chills, extreme nausea, had some vomiting last night. Coronavirus screen: At this time, the client does not indicate any symptoms associated with coronavirus-19. Ebola Screen: No symptoms or risks identified at this time. Initial Sepsis Screen: Does the patient meet any 2 criteria? No. Patient's initial sepsis screen is negative. Does the patient have a suspected source of infection? No. Patient's initial sepsis screen is negative. Risk Assessment: Do you want to hurt yourself or someone else? Patient reports no desire to harm self or others. Onset of symptoms was April 02, 2023. 09:47 Method Of Arrival: Ambulatory hb 09:47 Acuity: CORRINA 3 hb Historical: - Allergies: 09:49 Bees; hb 09:49 Codeine; hb - PMHx: 09:49 ADD/ADHD; Asthma; Bronchitis; Cannabinoid Hyperemesis Syndrome; PTSD; hb - PSHx: 09:49 L arm SX; hb - Immunization history:: Adult Immunizations up to date. - Social history:: Smoking status: Patient denies any tobacco usage or history of. Screenin:43 [facility] ED Fall Risk Assessment (Adult) History of falling in the last 3 months, ap3 including since admission No falls in past 3 months (0 pts). Abuse screen: Denies threats or abuse. Nutritional screening: No deficits noted. Tuberculosis screening: No symptoms or risk factors identified. Assessment: 11:43 General: Appears uncomfortable, Behavior is calm, cooperative. Pain: Complains of pain ap3 in generalized body aches. Neuro: Level of Consciousness is awake, alert, obeys commands, Oriented to person, place, time, situation. Cardiovascular: Patient's skin is warm and dry. Respiratory: Airway is patent Respiratory effort is even, unlabored, Respiratory pattern is regular, symmetrical. Vital Signs: 09:47 BP 135 / 91; Pulse 96; Resp 18; Temp 98.4; Pulse Ox 98% on R/A; Weight 58.97 kg; Height hb 5 ft. 10 in. ; Pain 0/10; 12:54 BP 118 / 85; Pulse 93; Resp 16; Pulse Ox 100% ; mb9 09:47 Body Mass Index 18.65 (58.97 kg, 177.8 cm) hb 09:47 Pain Scale: Adult hb ED Course: 09:37 Patient arrived in ED. am2 09:39 Radha Duff FNP-C is PHCP. snw 09:39 Raul Forbes MD is Attending Physician. snw 09:46 Dorothea Burkett, MARILYN is Primary Nurse. ap3 09:49 Triage completed. hb 09:49 Arm band placed on. hb 10:36 Initial lab(s) drawn, by me, sent to lab. Inserted saline lock: 20 gauge in right em1 antecubital area, using aseptic technique. Blood collected. Missed attempt(s): 22 gauge in left forearm. Bleeding controlled, band aid applied, catheter tip intact. 10:36 ETOH Level Sent. em1 10:36 CBC with Diff Sent. em1 10:37 CMP Sent. em1 10:37 Lipase Sent. em1 11:45 Patient has correct armband on for positive identification. Bed in low position. Call ap3 light in reach. Side rails up X2. Adult w/ patient. lunchroom monitor on. Pulse ox on. NIBP on. 13:56 No provider procedures requiring assistance completed. IV discontinued, intact, ap3 bleeding controlled, No redness/swelling at site. Pressure dressing applied. Administered Medications: 13:56 Discontinued: Potassium Chloride IV 20 mEq IV at calculated rate once; administer over ap3 1-2 hours 11:01 Drug: NS 0.9% IV 1000 ml Route: IV; Rate: 1 bolus; Site: right antecubital; ap3 12:25 Follow up: IV Status: Completed infusion ap3 11:01 Drug: Famotidine IVP 20 mg Route: IVP; Site: right antecubital; ap3 11:34 Follow up: Response: No adverse reaction ap3 11:34 Drug: Banana Bag - (NS 0.9% IV 1000 ml, foLIC Acid IVPB 1 mg, Thiamine IV 100 mg, ap3 Multivitamin IV 1 amp) Route: IV; Rate: calculated rate; Site: right antecubital; 13:36 Follow up: Response: No adverse reaction; IV Status: Completed infusion mb9 13:36 Drug: Potassium Chloride IV 20 mEq Route: IV; Rate: calculated rate; Site: right mb9 antecubital; 13:56 Drug: Potassium PO Effervescent Tablet 50 mEq Route: PO; ap3 13:56 Follow up: Response: No adverse reaction ap3 Medication: 11:45 VIS not applicable for this client. ap3 Outcome: 13:15 Discharge ordered by MD. bell 13:56 Discharged to home ambulatory. ap3 13:56 Condition: good 13:56 Discharge instructions given to patient, Instructed on discharge instructions, follow up and referral plans. medication usage, Demonstrated understanding of instructions, follow-up care, medications, Prescriptions given X 2. 14:08 Patient left the ED. ap3 Signatures: Radha Duff, SOUND ENGINEER AUDIO CONTROL-C SOUND ENGINEER AUDIO CONTROL-CsnCirilo Browne em1 Paz Medina RN RN Dorothea Sullivan am2 Dorothea Burkett RN RN ap3 Maral Martinez RN RN mb9
[2023-04-02 13:26] LABS: Specific Gravity 1.025 (1.005-1.030); Urine Bacteria None Seen /HPF (<20); Urine Bilirubin NEGATIVE (Negative); Urine Blood Negative (Negative); Urine Clarity Clear (Clear); Urine Color Yellow (Yellow); Urine Glucose NEGATIVE (Negative); Urine Mucus 3+ /HPF (None Seen); Urine Protein TRACE (Negative); Urine RBC <5 /HPF (None Seen); Urine Urobilinogen Normal (Normal)
[2023-04-02] MEDS ORDERED: KCL 20 MEQ/100 mL IVPB 100 ML IV ONE (13:41)
[2023-04-02] MEDS ORDERED: NA CHLORIDE 0.9% 250 ML ONE (13:47)
[2023-04-02] MEDS ORDERED: POTASSIUM 25 MEQ EFFERV TAB ONE (13:55)
[2023-04-02 14:54] VITALS: TEMP 98.4
[2023-04-02 14:59] VITALS: BP 118/85; O2SAT 100
== END 2023-04-02 14:08 | disposition home or self-care (01) ==
LOC: ER 09:36
DX: E86.0 Dehydration (principal)
CPT/HCPCS: 36415; 80053; 81001; 82077; 83690; 85025; 96361; 96365; 96366; 96375; 99285; J3411; J3480; J7030; J7050

== ENCOUNTER 2024-04-16 21:42 | Emergency (ER) | payer SELFPAY ==
--- NOTE | 2024-04-16 22:45 | EDPHYS ---
Physician Documentation [facility] Name: Peggy Piper Age: 18 yrs Sex: Male : 2005 Arrival Date: 04/16/2024 Time: 21:42 Bed 18 Private MD: ED Physician Farshad Gallegos HPI: 04/16 21:47 This 18 yrs old Male presents to ER via Unassigned with complaints of Sore Throat, kb Fever - with body chills. 21:47 Pt is a 18 year old male who presents for sore throat, fever, chills, bodyaches that kb started this morning. Denies cough, congestion, nausea, vomiting, diarrhea. Historical: - Allergies: 21:54 Codeine; ha1 21:54 Bees; ha1 - PMHx: 21:54 ADD/ADHD; Asthma; Bronchitis; Cannabinoid Hyperemesis Syndrome; PTSD; ha1 - PSHx: 21:54 L arm SX; ha1 - Immunization history:: Adult Immunizations up to date. - Infectious Disease History:: Denies. - Social history:: Smoking status: Patient denies any tobacco usage or history of. ROS: 21:47 Constitutional: As per HPI kb Exam: 21:50 Constitutional: This is a well developed, well nourished patient who is awake, alert, kb and in no acute distress. Head/Face: Normocephalic, atraumatic. Cardiovascular: Regular rate Respiratory: Respirations even and unlabored. No increased work of breathing. Talking in full sentences Skin: Warm, dry with normal turgor. Normal color. MS/ Extremity: Pulses equal, no cyanosis. Neurovascular intact. Full, normal range of motion. Neuro: Awake and alert, GCS 15, oriented to person, place, time, and situation. Moves all extremities. Normal gait. 21:50 ENT: Posterior pharynx: Airway: normal, swelling, that is mild, erythema, that is moderate, that is marked, exudate, is not appreciated, Vital Signs: 21:51 BP 126 / 76; Pulse 108; Resp 16 S; Temp 101.4(T); Pulse Ox 99% on R/A; Weight 70.31 kg; ha1 Height 5 ft. 11 in. ; 22:51 BP 120 / 74; Pulse 100; Resp 18; Pulse Ox 99% ; cp4 21:51 Body Mass Index 21.62 (70.31 kg, 180.34 cm) ha1 MDM: 21:46 Patient medically screened. kb 21:48 Differential diagnosis: strep, pharyngitis, flu, covid, bellman captain. Data reviewed: vital kb signs, nurses notes. Counseling: I had a detailed discussion with the patient and/or guardian regarding the historical points, exam findings, and any diagnostic results supporting the discharge/admit diagnosis, lab results, the need for outpatient follow up, an ENT specialist, to return to the emergency department if symptoms worsen or persist or if there are any questions or concerns that arise at home. 22:44 I considered the following discharge prescriptions or medication management in the emergency department I discussed and recommended Over The Counter medications, Antibiotics: At this time antibiotics are not recommended. 04/16 21:50 Order name: Strep; Complete Time: 22:44 kb 04/16 22:37 Order name: Throat Culture EDMS Administered Medications: 22:51 Drug: Ibuprofen PO 600 mg PO once Route: PO; cp4 Disposition: 23:15 Co-signature as Attending Physician, Farshad Gallegos MD I agree with the assessment sp4 and plan of care. I reviewed the patient's care provided by the Advanced Practice Provider and agree with the diagnosis and treatment plan. Disposition Summary: 04/16/24 22:44 Discharge Ordered Notes: Location: [facility] Condition: Stable Diagnosis - Acute pharyngitis, unspecified kb Followup: kb - With: Emergency Department - When: As needed - Reason: Worsening of condition Followup: kb - With: Private Physician - When: 2 - 3 days - Reason: Recheck today's complaints, Continuance of care, Re-evaluation by your physician Discharge Instructions: - Discharge Summary Sheet kb - Pharyngitis kb Forms: - Medication Reconciliation Form kb - Antibiotic Education kb - Prescription Opioid Use kb - Patient Portal Instructions kb - Leadership Thank You Letter kb Signatures: Dispatcher [employer] Savanna Bowser FNP-C FNP-Ckb Ayala, Heidy, RN RN ha1 Farshad Gallegos MD MD sp4 Tamica Ritchie cp4 Corrections: (The following items were deleted from the chart) 21:50 21:50 Group A Streptococcus Rapid [id number] ordered. EDRI EDRI
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
[2024-04-16] MEDS ORDERED: IBUPROFEN 200 MG TAB PO ONE (22:47)
[2024-04-16 23:09] VITALS: BP 120/74; TEMP 101.4; O2SAT 99
== END 2024-04-16 22:53 | disposition home or self-care (01) ==
LOC: ER 21:42
DX: J02.9 Acute pharyngitis, unspecified (principal); R50.9 Fever, unspecified
CPT/HCPCS: 87070; 87081

== ENCOUNTER 2024-08-10 02:53 | Emergency (ER) | payer SELFPAY ==
[2024-08-10] MEDS ORDERED: TDAP (DIPHTH,PERTUSS(ACELL),TET VAC) 0.5 ML VIAL IMVAC ONE (02:57)
[2024-08-10] MEDS ORDERED: CEPHALEXIN 250 MG CAP ONE (02:57)
[2024-08-10] MEDS ORDERED: IBUPROFEN 200 MG TAB PO ONE (03:10)
[2024-08-10] MEDS ORDERED: MUPIROCIN 2% OINT 22GM TUBE TOP ONE (03:10)
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
[2024-08-10 07:39] VITALS: BP 119/70; TEMP 98.4; O2SAT 99
== END 2024-08-10 04:40 | disposition home or self-care (01) ==
LOC: ER 02:53
DX: S61.402A Unspecified open wound of left hand, initial encounter (principal); W34.09XA Accidental discharge from other specified firearms, initial encounter

== ENCOUNTER 2024-08-13 13:17 | Emergency (ER) | payer SELFPAY ==
[2024-08-13] MEDS ORDERED: NA CHLORIDE 0.9% 1,000 ML ONE (13:56)
[2024-08-13] MEDS ORDERED: ONDANSETRON 4 MG/2 ML VIAL ONE (13:56)
[2024-08-13] MEDS ORDERED: DIPHENHYDRAMINE 50 MG/ML VIAL ONE (13:56)
[2024-08-13 14:07] LABS: Absolute Lymphocytes (CBC) 1.3 K/uL (0.7-4.9); Absolute Monocytes 0.8 K/uL (0.1-1.3); Absolute Neutrophil 9.4 K/uL (1.8-8.0); Basophils % 0.4 % (0-1.3); Eosinophils % 0.2 % (0-4.4); Hematocrit 47.4 % (39.6-49.0); Lymphocytes % 11.5 % (15.3-44.8); MCH 28.9 pg (27.0-35.0); MCHC 33.9 g/dL (32.0-36.0); MCV 85.4 fL (80-100); MPV 8.5 fL (7.6-11.3); Monocytes % 7.1 % (3.3-12.3); Neutrophils % 80.8 % (41.7-73.7); Platelets 266 thou/uL (152-406); RBC Red Blood Cell Count 5.54 M/uL (4.33-5.43); Red Cell Distribution Width 12.9 % (12.1-15.2)
[2024-08-13 14:12] LABS: PT Prothrombin Time 11.5 SECONDS (9.4-12.5); PTT, Activated Partial Thromb 31.4 SECONDS (24.3-36.9); Protime INR 1.03
[2024-08-13 14:25] LABS: Albumin 4.7 g/dL (3.4-5.0); Albumin/Globulin Ratio 1.1 (1.1-1.8); Anion Gap 11.6 mEq/L (5.0-15.0); Bilirubin Direct 0.2 mg/dL (0-0.2); Bilirubin Indirect, Calculated 0.8 mg/dL (0.2-0.8); Globulin 4.1 g/dL (2.3-3.5); Potassium 3.6 mEq/L (3.5-5.1); Protein, Total 8.8 g/dL (6.4-8.2)
[2024-08-13 14:31] LABS: Specific Gravity 1.016 (1.005-1.030); Urine Bilirubin NEGATIVE (Negative); Urine Blood Negative (Negative); Urine Clarity Clear (Clear); Urine Color Light-Yellow (Yellow); Urine Glucose NEGATIVE (Negative); Urine Ketones 3+ (Negative); Urine Microscopic Reflex YN NO UMIC; Urine Nitrite NEGATIVE (Negative); Urine Protein NEGATIVE (Negative); Urine Urobilinogen Normal (Normal)
[2024-08-13 14:39] LABS: Barbiturates NEGATIVE (NEGATIVE); Benzodiazepines NEGATIVE (NEGATIVE); Cocaine NEGATIVE (NEGATIVE); METHAMPHETAM NEGATIVE (NEGATIVE); Methadone NEGATIVE (NEGATIVE); Opiates NEGATIVE (NEGATIVE); Phencyclidine NEGATIVE (NEGATIVE); THC Cannibis POSITIVE (NEGATIVE)
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
[2024-08-13 17:47] VITALS: TEMP 97.2; O2SAT 100
[2024-08-13 17:48] VITALS: BP 126/71
--- NOTE | 2024-08-14 11:52 | EKG ---
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
== END 2024-08-13 15:48 | disposition home or self-care (01) ==
LOC: ER 13:17
DX: F41.9 Anxiety disorder, unspecified (principal)
CPT/HCPCS: 36415; 80048; 80076; 80307; 81003; 82077; 85025; 85610; 85730; 93005; 96361; 96374; 99285; J1200; J2405; J7030

== ENCOUNTER 2024-12-09 13:23 | Emergency (ER) | payer SELFPAY ==
[2024-12-09 14:14] LABS: SARS-CoV-2 Antigen CONTROL BLUE LINE VIS/BG OK; SARS-CoV-2 Antigen Rapid Res Negative (Negative)
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
[2024-12-09 17:45] VITALS: BP 103/69; TEMP 99.7; O2SAT 100
== END 2024-12-09 15:02 | disposition home or self-care (01) ==
LOC: ER 13:23
DX: J02.0 Streptococcal pharyngitis (principal); Z11.52 Encounter for screening for COVID-19
CPT/HCPCS: 36415; 87081; 87804; 87811